=== PATIENT | female | born 2005 | race Caucasian/White ===

== ENCOUNTER 2024-07-18 13:59 | Emergency (ER) | payer OTHER, MEDICAID, SELFPAY ==
[2024-07-18 14:00] VITALS: BP 126/78; PULSE 123; RESP 20; TEMP 37.1; O2SAT 98; BMI 25.2
--- NOTE | 2024-07-18 14:28 | EDS_ITS ---
HPI History of Present Illness Chief Complaint: General Illness Detail of Chief Complaint: Flulike symptoms and left leg pain Informant: patient Onset/Context/Timing Onset: Yesterday Context: Sudden Onset Timing: Continuous Quality: Discomfort Location: Anterior left leg Current Severity: Mild Maximum Severity: Moderate Worsened by: Walking/weightbearing Relieved by: Nothing Associated Symptoms Associated Symptoms: Patient also has flulike symptoms. Narrative Narrative: Patient is a 18-year-old G2, P1 Ab0 female who presents because of anterior left leg pain. She has have flulike symptoms but not the reason she is here. She has had no fever, chills night sweats. She does endorse rhinorrhea, congestion sore throat cough. Cough is nonproductive. Denies dyspnea or [place] exertion. There is no history of VTE. Concern is for DVT. Prior similar symptoms: No Recent Illness/Hospitalization: No PFSH PFSH Medical History (Updated 07/18/24 @ 14:[address] Solo Garza MD) Preeclampsia Medical History no medical history Home Medications ?Medication ?Instructions ?Recorded ?Last Taken ?Type vit no.95-ferrous 1 tab PO DAILY 07/18/24 Unk nown History fumarate 28 mg-folic acid 800 mcg tablet () Allergy/AdvReac Type Severity Reaction Status Date / Time bee venom protein (honey Allergy Severe Anaphylaxis Verified 07/18/24 14:00 bee) (bee sting) Sulfa (Sulfonamide Allergy Severe Anaphylaxis Verified 07/18/24 14:00 Antibiotics) Family History no significant family his Surgical History no surgical history Social History (Updated 07/18/24 @ 14:[address] Solo Garza MD) household members: family and children Smoking Status: Never smoker ROS ROS ED Constitutional Constitutional ED: Denies chills, fever(s) or subjective Eyes Eyes: Denies blurry vision or change in vision ENT ENT ED: Reports rhinorrhea and sore throat; Denies ear pain Cardiovascular Cardiovascular: Denies chest pain, orthopnea, palpitations or paroxysmal nocturnal dyspnea Respiratory/Chest Respiratory/Chest: Reports cough and dyspnea; Denies dyspnea on exertion, orthopnea, paroxysmal nocturnal dyspnea or sputum Gastrointestinal Gastrointestinal: Denies abdominal pain, nausea or vomiting Musculoskeletal Musculoskeletal: Reports other Details: Anterior left leg pain. Integumentary Denies rash Neurologic Neurologic: Denies paresthesias or weakness Hematologic/Lymphatic Hematologic/Lymphatic: Reports systems reviewed and no addt'l complaints, except as documented EXAM Physical Exam Const Vital Signs: 07/18/24 14:00 07/18/24 14:23 Temperature 98.7 F Temperature Source Oral Pulse Rate 123 H Respiratory Rate 20 H Respiratory Effort Normal Respiratory Pattern Normal Blood Pressure 126/78 H Blood Pressure Mean 94 Pulse Ox 98 Oxygen Delivery Method Room Air Vital signs remarkable for tachycardia. Patient's blood pressure slightly elevated. Suspect this is due to her viral upper respiratory infection. Positive well nourished and well developed Constitutional Narrative: Patient has a hoarse voice. General Appearance ED: well developed and NAD; Negative for cyanotic, diaphoretic or pallor HEENT Reports moist mucous membranes Eyes PERRL and EOMs intact bilaterally General Eye ED: Negative for pale conjunctiva Resp normal respiratory effort Cardio regular rate and regular rhythm Extremity normal to inspection Extremity Narrative: There is no swelling, discoloration, asymmetry, leg vein distention, palpable cords tenderness on the distribution deep in the system. Patient does have pain anterior left leg. PT pulses 2+ and symmetric. There is no neurovascular compromise of the left lower extremity. Neuro oriented x3 and CN's II-XII intact bilaterally Sensorium / Orientation: alert Psych mental status grossly normal Skin no rashes or lesions noted, no wounds and skin turgor normal General Skin Exam: elasticity normal; Negative for jaundice or pallor MDM MDM MDM Narrative Medical decision making narrative: Patient with upper respiratory type symptoms. Since she is not hypoxic and has no abnormal respiratory findings imaging was not obtained. Patient was informed she does not have a DVT. Her Wells score for DVT is -2. They were informed raven t there are no blood vessels on the anterior portion of the leg that resulted in DVT. The vessels were located in the back part of the leg. Therefore venous duplex studies are not indicated. Discharge Plan Triage Chief Complaint: General Illness ED Provider: Solo Garza Dx/Rx/DC Orders Clinical Impression: Pain of left anterior lower extremity, Viral URI with cough, Second trimester , Sinus tachycardia Instructions: ED URI, Viral, No Abx (Adult), ED RICE Prescriptions: No Action PNV cmb#95-ferrous fumarate-FA [] 28 mg iron- 800 mcg tablet 1 tab PO DAILY Primary Care Provider: Care Physician,No Primary Referrals: Christine Beltrán MD [Med Staff - Active Staff] - 10-14 Days if not better Care Physician,No Primary [Primary Care Provider] - Print Language: Tamazight Disposition Disposition: Home, Self Care
== END 2024-07-18 14:56 | disposition home or self-care (01) ==
LOC: ED 14:55
PROVIDERS: Emergency Provider Emergency Medicine; Referring Provider Emergency Medicine; Visit Provider Emergency Medicine
DX: O26.892 Other specified pregnancy related conditions, second trimester (principal); M79.605 Pain in left leg; O99.512 Diseases of the respiratory system complicating pregnancy, second trimester; R00.0 Tachycardia, unspecified; J06.9 Acute upper respiratory infection, unspecified; Z3A.00 Weeks of gestation of pregnancy not specified
CPT/HCPCS: 99282

== ENCOUNTER 2024-10-03 19:12 | Emergency (ER) | payer OTHER, MEDICAID, SELFPAY ==
[2024-10-03 19:13] VITALS: BP 125/76; PULSE 103; RESP 18; TEMP 36.3; O2SAT 96; BMI 27.1
--- NOTE | 2024-10-03 19:58 | ED.VIS.CHEST ---
HPI History of Present Illness Chief Complaint: Chest Other Informant: patient Narrative Narrative: 19-year-old female who states she is having right-sided rib pain. It is in her right lower anterior lateral chest, she has no reason to have it it has been there for a couple days, started while she was sitting but just became worse. Nonpleuritic. Not necessarily worse when she moves around but certain movements make her more uncomfortable. She denies any dyspnea worse than she has had, she is 32 weeks and states she has had some mild dyspnea with exertion that she attributes to abdominal distention and being , states she has been like that before in before, and the main reason she is here is that she was preeclamptic before in a different , they saw a protein in her urine before her blood pressure went up and before she developed any symptoms and that is the only thing she wants done. She denies any cough or fevers except for some seasonal allergy type of rhinitis symptoms. She denies any abdominal pain, vomiting, diarrhea, blood in her stool, melena. No vaginal bleeding or discharge/leakage. No edema or pain in one of her legs or the other. No history of DVT or PE. [facility] Medical History Preeclampsia Home Medications ?Medication ?Instructions ?Recorded ?Last Taken ?Type vit no.95-ferrous 1 tab PO DAILY 07/18/24 Unknown History fumarate 28 mg-folic acid 800 mcg tablet () Allergy/AdvReac Type Severity Reaction Status Date / Time bee venom protein (honey Allergy Severe Anaphylaxis Verified 10/03/24 19:13 bee) (bee sting) Sulfa (Sulfonamide Allergy Severe Anaphylaxis Verified 10/03/24 19:13 Antibiotics) Social History household members: family and children Smoking Status: Never smoker ROS ROS ED Constitutional Constitutional ED: Denies chills or fever(s) Eyes Eyes: Denies change in vision or diplopia ENT ENT ED: Denies rhinorrhea or sore throat Cardiovascular Cardiovascular: Reports as per HPI and chest pain; Denies palpitations Respiratory/Chest Respiratory/Chest: Denies cough or dyspnea Gastrointestinal Gastrointestinal: Denies abdominal pain, diarrhea, nausea or vomiting Genitourinary Genitourinary ED: Denies dysuria or hematuria Musculoskeletal Musculoskeletal: Denies back pain or neck pain Integumentary Denies abscess or rash Neurologic Neurologic: Denies headache(s), paresthesias or weakness Psychiatric Psychiatric: Denies anxiety or suicidal thoughts EXAM Physical Exam Const Vital Signs: 10/03/24 19:13 10/03/24 19:46 Temperature 97.4 F L Temperature Source Temporal Pulse Rate 103 H Respiratory Rate 18 Respiratory Effort Normal Non-Labored Blood Pressure 125/76 H Blood Pressure Mean 92 Pulse Ox 96 Oxygen Delivery Method Room Air Positive well nourished and well developed Constitutional Narrative: Well-appearing no distress General Appearance ED: well developed and NAD HEENT Reports moist mucous membranes normocephalic and atraumatic Eyes PERRL and EOMs intact bilaterally Neck full ROM and supple Chest Wall inspection of chest normal and palpation of chest normal Chest Narrative: Not able to reproduce patient's pain, the affected area just beneath and lateral to her right breast is nontender there is no crepitance or flail or subcutaneous emphysema. No splinting with deep inspiration. Resp normal respiratory effort and clear to auscultation bilaterally Cardio regular rate, regular rhythm and no murmurs GI non-tender GI Narrative: Distended about the umbilicus consistent with her trimester . No upper quadrant tenderness. Auscultation: normoactive bowel sounds Palpation: soft Back/Spine no CVA tenderness General Back: other FROM Extremity normal to inspection Extremity Narrative: No calf tenderness bilaterally General Extremety ED: Negative for edema, pulses abnormal or tenderness General Extremity: Negative for edema or pulses abnormal Neuro oriented x3, CN's II-XII intact bilaterally and no sensory deficits noted Sensorium / Orientation: awake and alert Motor Exam: strength 5/5 throughout Psych mental status grossly normal Skin no rashes or lesions noted and no wounds MDM MDM MDM Narrative Medical decision making narrative: I discussed the possibilities of this patient's discomfort in her right lower chest. This does include a PE but I am at a lower suspicion that that is what is going on. I recommended chest x-ray to rule out an occult pneumonia or atelectasis that might explain this, she refuses the x-ray understanding all of this. She is concerned about preeclampsia and proteinuria, so we sent a urine it does show some protein but not a lot. Shows 500 leukocyte esterase with some pyuria but similar amount of epithelials, she does not have any urinary symptoms I do not think this is indicative of faction, but I offered blood work to screen her for preeclampsia and help syndrome, but she refused that as well. I discussed with her OB practice Dr. Berg was on-call, she recommended that we add a protein-creatinine urine ratio and send the patient to OB triage so she could be further evaluated. Patient is amenable to that. To be discharged from the ER. Lab Data Attestation: I reviewed the patient's lab results. Labs: Laboratory Results - last 24 hr 10/03/24 20:07 Urine Color Yellow Urine Clarity Sl. Cloudy Urine pH 6.0 Ur Specific Bowman 1.015 Urine Protein 15 H Urine Glucose (UA) Normal Urine Ketones Negative Urine Occult Blood Negative Urine Nitrite Negative Urine Bilirubin Negative Urine Urobilinogen Normal Ur Leukocyte Esterase 500 H Urine RBC 0 SEEN Urine WBC 10-25 SEEN Ur Squamous Epith Cells 10-25 SEEN Urine Bacteria 1+ Urine Mucus 0 SEEN Management Discussion w/another healthcare provider: Personnel Quality Assurance Auditor (OB Dr. Berg) Discharge Plan Triage Chief Complaint: Chest Other ED Provider: Triston Valerio Dx/Rx/DC Orders Clinical Impression: Right-sided chest pain, Third trimester , Proteinuria affecting in third trimester Instructions: ED Chest Pain, Uncertain Cause Prescriptions: No Action PNV cmb#95-ferrous fumarate-FA [] 28 mg iron- 800 mcg tablet 1 tab PO DAILY Primary Care Provider: Care Physician,Katherine Primary Referrals: OB triage [Other] (NOW) Print Language: Welsh Disposition Disposition: Home, Self Care
[2024-10-03 20:14] LABS: Mucous, Urine 0 SEEN /hpf (<or=2+); Red Blood Cells-Urine 0 SEEN /hpf (0-5)
[2024-10-03 20:22] LABS: Color, Urine Yellow (Yellow); Glucose, Dipstick Normal (Normal); Ketone-Dipstick Negative (Negative); Leukocyte Esterase-Dipstick 500 /ul (Negative); Nitrite-Dipstick Negative (Negative); Occult Blood-Urine Negative /ul (Negative); Protein-Dipstick 15 mg/dl (Negative); Specific Gravity, Urine 1.015 (1.002-1.030); Urine Bilirubin Dipstick Negative (Negative); Urine Clarity Sl. Cloudy (Clear); Urine Urobilinogen Normal (Normal)
[2024-10-03 20:48] LABS: Bacteria 1+ /hpf (None Seen); Squamous Epithelial Cells - UA 10-25 SEEN /hpf (5-10); White Blood Cells 10-25 SEEN /hpf (0-5)
[2024-10-03 21:45] VITALS: BP 115/71; PULSE 75; RESP 18; TEMP 36.7; O2SAT 100
[2024-10-03 21:57] LABS: Protein, Urine (Random) 14.6 mg/dL (0.0-12.0); Protein:Creat Ratio 170 mg/g CRE (0-200)
== END 2024-10-03 21:47 | disposition home or self-care (01) ==
PROVIDERS: Emergency Provider Emergency Medicine; Referring Provider Emergency Medicine; Visit Provider Emergency Medicine
DX: O26.893 Other specified pregnancy related conditions, third trimester (principal); R07.9 Chest pain, unspecified; O12.13 Gestational proteinuria, third trimester; O99.891 Other specified diseases and conditions complicating pregnancy; R82.81 Pyuria; Z3A.32 32 weeks gestation of pregnancy
CPT/HCPCS: 81001; 82570; 84156; 99282

== ENCOUNTER 2024-10-03 21:55 | Outpatient (CLI) | payer OTHER, MEDICAID, SELFPAY ==
[2024-10-03] VITALS (8 sets, daily range): BP systolic 81–120; BP diastolic 50–69; PULSE 64–91; RESP 16; TEMP 36.8; O2SAT 96–97
[2024-10-03 22:36] LABS: Absolute Lymphocyte Count 3.17 X10^3/uL (0.83-4.51); Absolute Neutrophil Count 11.3 X10^3/uL (2.0-7.7); Basophil# 0.05 X10^3/uL; Basophil% 0.3 % (0-1); Eosinophil# 0.18 X10^3/uL; Eosinophils% 1.2 % (0-5); Hematocrit 22.2 % (37-47); Hemoglobin 7.4 g/dL (12.0-15.0); Lymphocyte # 3.17 X10^3/ul (0.83-4.51); Lymphocyte % 20.3 % (19-41); Mean Corp Hgb Conc 33.3 g/dL (32-36); Mean Corpuscular Hgb 27.2 pg (27.0-32.0); Mean Corpuscular Volume 81.6 fL (81-99); Mean Platelet Vol. 9.6 fl (6.2-12.0); Monocyte# 0.85 X10^3/uL; Monocyte% 5.4 % (0-10); NRBC Flagged by Analyzer 0 % (0-5); Neutrophil # 11.25 X10^3/uL (2.7-7.7); Neutrophil % 72.1 % (47-70); Platelet Count 457 K/mm3 (150-450); RBC Distribution Width CV 12.4 % (11.6-14.6); RBC Distribution Width SD 37.1 fl (35.1-43.9); Red Blood Count 2.72 M/mm3 (4.2-5.4); White Blood Count 15.6 K/mm3 (4.4-11.0)
[2024-10-04 00:04] VITALS: BMI 26.9
[2024-10-04 01:03] LABS: ALB/GLOB Ratio 0.8 RATIO (0.9-2.4); AST(SGOT) 21 U/L (<=31); Alanine Aminotransfer ALT/SGPT 13 U/L (<=34); Albumin, Serum 3.1 g/dL (3.5-5.0); Alkaline Phosphatase 199 U/L (35-104); Anion Gap 12 (5-15); BUN 8 mg/dL (4-19); BUN/Creat Ratio 16.2 RATIO (10-20); Calcium,Total 8.6 mg/dL (7.6-11.0); Carbon Dioxide 19.1 mmol/L (21.0-32.0); Chloride 103 mmol/L (98-108); Creatinine, Serum 0.51 mg/dL (0.70-1.20); EST Glomerular Filtration Rate 136 (>60); Estimated Creatinine Clearance 174.98 ml/min (50-250); Globulin 3.7 g/dL (2.2-4.2); Glucose 109 mg/dL (70-99); Potassium 3.5 mmol/L (3.3-5.1); Protein, Total 6.8 g/dL (5.9-8.4); Sodium Level 134 mmol/L (133-145)
--- NOTE | 2024-10-04 09:37 | OB.TRI.NOTE ---
HPI - General General Date of Admission: 10/03/24 Date of Service: 10/03/24 Chief Complaint: right sided pain in HPI Narrative MARYANA BERRY, is a 19 F who presents 3 para 1 who presents complaining of some right upper quadrant pain has been going on for couple days that is worse when she sits and does her schoolwork at her computer. She denies any headache or visual changes. She denies any increased edema. She has had good movement. She denies any nausea vomiting, fevers or chills. She denies any diarrhea or constipation. Patient is concerned because last she had preeclampsia and she states it was only found by protein in her urine so she wanted to have that checked. She presented to the emergency room and I directed them to send her to labor and delivery for further evaluation. Maternal Data Information Final COTY: 12/02/24 Gestational age: 31 3/ [facility] Medical History Preeclampsia Home Medications ?Medication ?Instructions ?Recorded ?Last Taken ?Type vit no.95-ferrous 1 tab PO DAILY 07/18/24 Unknown History fumarate 28 mg-folic acid 800 mcg tablet () Allergy/AdvReac Type Severity Reaction Status Date / Time bee venom protein (honey Allergy Severe Anaphylaxis Verified 10/03/24 19:13 bee) (bee sting) Sulfa (Sulfonamide Allergy Severe Anaphylaxis Verified 10/03/24 19:13 Antibiotics) Social History household members: family and children Smoking Status: Never smoker Physical Exam Narrative General: Awake alert no acute distress Abdomen: Soft nontender nondistended, gravid, fundus appropriate for gestational age Extremities: Trace edema, 3+ DTRs no clonus NST FHR Rate Baby A Baseline: 120 Variability:: Moderate Accelerations:: 15 x 15 Decelerations:: Variable (Associated with vasovagal reaction and decrease in maternal blood pressure after blood draw) NST Reactive:: Yes FHR Category:: Category I (For 20 minutes before discharge home after the decelerations associated with maternal hypotension) Uterine Activity:: No regular contractions Assessment & Plan (1) Supervision of high risk in third trimester: PLAN: History of preeclampsia in her previous . Blood pressure is normal. Right upper quadrant pain is musculoskeletal, gets better with position changes. She does not have any tenderness on exam. Blood work is normal. No proteinuria. Discussed with her signs and symptoms of preeclampsia and to call or return to the office or labor and delivery as needed. Otherwise follow-up in the office as scheduled or as needed. Patient is comfortable with this plan. Labs were reviewed. Patient had decelerations associated with vasovagal reaction and hypotension after her blood draw. heart tones stabilized and were category 1 and reactive before discharge home.
== END 2024-10-03 23:21 | disposition home or self-care (01) ==
LOC: WPOUT 22:00 → WP 22:01
PROVIDERS: Referring Provider Obstetrics & Gynecology; Visit Provider Obstetrics & Gynecology
DX: O36.8330 Maternal care for abnormalities of the fetal heart rate or rhythm, third trimester, not applicable or unspecified (principal); O09.93 Supervision of high risk pregnancy, unspecified, third trimester; R10.11 Right upper quadrant pain; O99.891 Other specified diseases and conditions complicating pregnancy; R55 Syncope and collapse; O99.413 Diseases of the circulatory system complicating pregnancy, third trimester; I95.81 Postprocedural hypotension; Z3A.31 31 weeks gestation of pregnancy
CPT/HCPCS: 36415; 59025; 59050; 80053; 85025; 99221; G0378

== ENCOUNTER 2024-11-18 23:38 | Outpatient (CLI) | payer OTHER, MEDICAID, SELFPAY ==
[2024-11-18 23:59] VITALS: BMI 29.2
--- OUTSIDE RECORDS SUMMARY | 2024-11-18 23:59 | XMS RPT_ITS | CCD ---
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 trimester] 06-10-2024 Episodic Other complications of (9 sources) Disease of the respiratory system complicating , childbirth and/or the puerperium; Translations: [Diseases of the respiratory system complicating , third trimester] Onset: 10-10-2024 10-10-2024 Episodic Other complications of (1 source) Supervision of high risk , unspecified, third trimester; Translations: [Supervision of high risk in third trimester (HCC)] Onset: 11-04-2024 Episodic Other complications of (1 source) Diseases of the respiratory system complicating , third trimester; Translations: [Pneumonia affecting in third trimester (HCC)] Onset: 10-10-2024 Episodic Other complications of (1 source) Supervision of with insufficient care, unspecified trimester; Translations: [Late care (HCC)] Onset: 09-23-2024 Episodic Other connective tissue disease (1 source) Bilateral calf pain; Translations: [Pain in right lower leg] 07-18-2024 Episodic Other connective tissue disease (1 source) Pain in left leg; Translations: [Pain in left leg] Onset: 07-31-2024 Episodic Other female genital disorders (2 sources) Vaginal bleeding; Translations: [Abnormal uterine and vaginal bleeding, unspecified] Chronic Other lower respiratory disease (2 sources) Rib pain; Translations: [Pleurodynia] 11-12-2024 Episodic Other lower respiratory disease (2 sources) Pleurodynia; Translations: [Pleurodynia] Onset: 11-12-2024 Episodic Other screening for suspected conditions (not mental disorders or infectious disease) (7 sources) Intact membranes; Translations: [Encounter for suspected problem with amniotic cavity and membrane ruled out] Onset: 04-18-2023 Resolved: 06-07-2023 06-07-2023 Episodic Pneumonia (except that caused by tuberculosis or sexually transmitted disease) (4 sources) Left lower zone pneumonia; Translations: [Pneumonia, unspecified organism] Onset: 10-06-2024 10-06-2024 Episodic Residual codes; unclassified (2 sources) 33 weeks gestation of ; Translations: [33 weeks gestation of ] Onset: 05-30-2023 Episodic Residual codes; unclassified (2 sources) 29 weeks gestation of ; Translations: [29 weeks gestation of ] Onset: 05-02-2023 Episodic Residual codes; unclassified (2 sources) 27 weeks gestation of ; Translations: [27 weeks gestation of ] Onset: 04-19-2023 Episodic Residual codes; unclassified (1 source) Gestation period, 15 weeks; Translations: [15 weeks gestation of ] 06-07-2024 Episodic Residual codes; unclassified (1 source) Gestation period, 20 weeks; Translations: [20 weeks gestation of ] 07-16-2024 Episodic Residual codes; unclassified (1 source) Gestation period, 22 weeks; Translations: [22 weeks gestation of ] 07-30-2024 Episodic Residual codes; unclassified (1 source) Gestation period, 24 weeks; Translations: [24 weeks gestation of ] 08-12-2024 Episodic Residual codes; unclassified (1 source) Gestation period, 28 weeks; Translations: [28 weeks gestation of ] 09-09-2024 Episodic Residual codes; unclassified (1 source) Gestation period, 30 weeks; Translations: [30 weeks gestation of ] 09-23-2024 Episodic Residual codes; unclassified (1 source) Gestation period, 32 weeks; Translations: [32 weeks gestation of ] 10-10-2024 Episodic Residual codes; unclassified (1 source) Gestation period, 34 weeks; Translations: [34 weeks gestation of ] 10-21-2024 Episodic Residual codes; unclassified (1 source) Gestation period, 36 weeks; Translations: [36 weeks gestation of ] 11-04-2024 Episodic Residual codes; unclassified (4 sources) Gestation period, 37 weeks; Translations: [37 weeks gestation of ] Onset: 11-12-2024 11-12-2024 Episodic Residual codes; unclassified (2 sources) 37 weeks gestation of ; Translations: [37 weeks gestation of ([facility])] Onset: 11-12-2024 Episodic Residual codes; unclassified (1 source) 36 weeks gestation of ; Translations: [36 weeks gestation of ([facility])] Onset: 11-04-2024 Episodic Residual codes; unclassified (1 source) 34 weeks gestation of ; Translations: [34 weeks gestation of ([facility])] Onset: 10-21-2024 Episodic Residual codes; unclassified (1 source) Personal history of other complications of , childbirth and the puerperium; Translations: [History of pre-eclampsia] Onset: 10-21-2024 Episodic Residual codes; unclassified (1 source) 32 weeks gestation of ; Translations: [32 weeks gestation of (HCC)] Onset: 10-10-2024 Episodic Residual codes; unclassified (1 source) 30 weeks gestation of ; Translations: [30 weeks gestation of (HCC)] Onset: 09-23-2024 Episodic Residual codes; unclassified (1 source) 24 weeks gestation of ; Translations: [24 weeks gestation of (HCC)] Onset: 09-09-2024 Episodic Unclassified (2 sources) Routine Visit; Translations: [Routine Visit] Onset: 06-07-2023 Unclassified (10 sources) [facility] - [facility] Onset: 09-12-2024 09-12-2024 Past or Other Problems Problem Classification Problem Date Documented Date Episodic/Chronic Bacterial infection; unspecified site (7 sources) Chlamydial infection; Translations: [Chlamydial infection, unspecified] Onset: 12-13-2022 Resolved: 04-18-2023 12-13-2022 Episodic Contraceptive and procreative management (4 sources) Encounter for initial prescription of contraceptive pills; Translations: [Encounter for initial prescription of contraceptive pills] Onset: 06-13-2023 Episodic Hypertension complicating ; childbirth and the puerperium (10 sources) Pre-eclampsia; Translations: [Unspecified pre-eclampsia, third trimester] Onset: 06-13-2023 Resolved: 10-25-2023 06-19-2023 Episodic Other circulatory disease (8 sources) Elevated blood-pressure reading without diagnosis of hypertension; Translations: [Elevated blood-pressure reading, without diagnosis of hypertension] Onset: 06-07-2023 Resolved: 10-25-2023 06-07-2023 Episodic Other circulatory disease (2 sources) Elevated blood-pressure reading, without diagnosis of hypertension; Translations: [Elevated blood-pressure reading, without diagnosis of hypertension] Onset: 06-07-2023 Episodic Other complications of (8 sources) Proteinuria; Translations: [Gestational proteinuria, third trimester] Onset: 06-07-2023 Resolved: 10-25-2023 06-07-2023 Episodic Other complications of (2 sources) Gestational proteinuria, third trimester; Translations: [Gestational proteinuria, third trimester] Onset: 06-07-2023 Episodic Other complications of (20 sources) Late entry into care; Translations: [Supervision of with insufficient care, second trimester] Onset: 06-10-2024 06-10-2024 Episodic Other complications of (20 sources) History of pre-eclampsia; Translations: [Supervision of with other poor reproductive or obstetric history, unspecified trimester] Onset: 06-05-2023 06-10-2024 Episodic Other complications of (20 sources) High risk ; Translations: [Supervision of high risk , unspecified, unspecified trimester] Onset: 06-10-2024 06-10-2024 Episodic Other connective tissue disease (9 sources) Acquired short Achilles tendon; Translations: [Contracture of tendon (sheath)] Onset: 04-18-2023 Resolved: 04-18-2023 04-18-2023 Episodic Other and delivery including normal (15 sources) Intrauterine ; Translations: [Encounter for supervision of normal , unspecified, unspecified trimester] Onset: 12-19-2022 Resolved: 10-25-2023 Episodic Other upper respiratory infections (2 sources) Acute frontal sinusitis; Translations: [Acute frontal sinusitis, unspecified] Onset: 12-29-2020 Resolved: 12-08-2022 12-08-2022 Episodic Residual codes; unclassified (4 sources) Vegetarian; Translations: [Other specified health status] Onset: 10-16-2018 10-16-2018 Episodic Residual codes; unclassified (1 source) 15 weeks gestation of ; Translations: [15 weeks gestation of ] Onset: 06-10-2024 Episodic Results Test Name Value Interpretation Reference Range Facility URINE OB DIP B/Oon Glucose Ql (U) Negative Neg mg/dL [facility] Interpretation and review of laboratory results Normal [facility] Protein.monoclonal (U) [Mass/Vol] Negative Neg mg/dL [facility] CBC W Auto Differential pane l (Bld)on 11-12-2024 Basophils (Bld) [#/Vol] 0.05 10*3/uL [facility] Basophils/100 WBC (Bld) 0.4 % 0.0 - 2.0 % [facility] Eosinophils (Bld) [#/Vol] 0.14 10*3/uL [facility] Eosinophils/100 WBC (Bld) 1.1 % 0.0 - 6.0 % [facility] Erythrocyte distribution width (RBC) [Ratio] 13.5 % 11.5 - 14.5 % [facility] Hematocrit (Bld) [Volume fraction] 26.3 % Low 36.0 - 46.0 % [facility] Hemoglobin (Bld) [Mass/Vol] 8.2 g/dL Low 12.0 - 16.0 g/dL [facility] Immature granulocytes (Bld) [#/Vol] 0.11 10*3/uL [facility] Immature granulocytes/100 WBC (Bld) 0.9 % 0.0 - 0.9 % [facility] Comment on above: Immature Granulocyte Count (IG) includes promyelocytes, myelocytes and metamyelocytes but does not include bands. Percent differential counts (%) should be interpreted in the context of the absolute cell counts (cells/UL). Interpretation and review of laboratory results Abnormal [facility] Lymphocytes (Bld) [#/Vol] 2.75 10*3/uL [facility] Lymphocytes/100 WBC (Bld) 22.4 % 13.0 - 44.0 % [facility] MCH (RBC) [Entitic mass] 24.7 pg Low 26.0 - 34.0 pg [facility] MCHC (RBC) [Mass/Vol] 31.2 g/dL Low 32.0 - 36.0 g/dL [facility] MCV (RBC) [Entitic vol] 79 fL Low 80 - 100 fL [facility] Monocytes (Bld) [#/Vol] 0.77 10*3/uL [facility] Monocytes/100 WBC (Bld) 6.3 % 2.0 - 10.0 % [facility] Neutrophils (Bld) [#/Vol] 8.46 10*3/uL High [facility] Comment on above: Percent differential counts (%) should be interpreted in the context of the absolute cell counts (cells/uL). Neutrophils/100 WBC (Bld) 68.9 % 40.0 - 80.0 % [facility] Nucleated RBC/100 WBC (Bld) [Ratio] 0 % [facility] Platelets (Bld) [#/Vol] 234 10*3/uL [facility] RBC (Bld) [#/Vol] 3.32 10*6/uL Low [facility] WBC (Bld) [#/Vol] 12.3 10*3/uL High [facility] Basophils (Bld) [#/Vol] 0.05 x10*3/uL Normal 0.00-0.10 [facility] Comment on above: Performed By: #### 5 7021-8 #### MELLO TOWNSEND ([id number]) [facility] ([facility]) [address] [place] [address] 37154 Basophils/100 WBC (Bld) 0.4 % Normal 0.0-2.0 [facility] Comment on above: Performed By: #### 5 7021-8 #### MELLO TOWNSEND ([id number]) [facility] ([facility]) [address] [place] [address] 31241 Eosinophils (Bld) [#/Vol] 0.14 x10*3/uL Normal 0.00-0.70 [facility] Comment on above: Performed By: #### 5 7021-8 #### MELLO TOWNSEND ([id number]) [facility] ([facility]) [address] [place] [address] 06095 Eosinophils/100 WBC (Bld) 1.1 % Normal 0.0-6.0 [facility] Comment on above: Performed By: #### 5 7021-8 #### MELLO TOWNSEND ([id number]) [facility] ([facility]) [address] [place] [address] 82622 Erythrocyte distribution width (RBC) [Ratio] 13.5 % Normal 11.5-14.5 [facility] Comment on above: Performed By: #### 5 7021-8 #### MELLO TOWNSEND ([id number]) [facility] ([facility]) [address] [place] [address] 76930 Hematocrit (Bld) [Volume fraction] 26.3 % Low 36.0-46.0 [facility] Comment on above: Performed By: #### 5 7021-8 #### MELLO TOWNSEND ([id number]) [facility] ([facility]) [address] [place] [address] 97205 Hemoglobin (Bld) [Mass/Vol] 8.2 g/dL Low 12.0-16.0 [facility] Comment on above: Performed By: #### 5 7021-8 #### MELLO TOWNSEND ([id number]) [facility] ([facility]) [address] [place] [address] 79836 Immature granulocytes (Bld) [#/Vol] 0.11 x10*3/uL Normal 0.00-0.70 [facility] Comment on above: Performed By: #### 5 7021-8 #### MELLO TOWNSEND ([id number]) [facility] ([facility]) [address] [place] [address] 42619 Immature granulocytes/100 WBC (Bld) 0.9 % Normal 0.0-0.9 [facility] Comment on above: Result Comment: Sheila ture Granulocyte Count (IG) includes promyelocytes, myelocytes and metamyelocytes but does not include bands. Percent differential counts (%) should be interpreted in the context of the absolute cell counts (cells/UL). Performed By: #### 5 7021-8 #### MELLO TOWNSEND ([id number]) [facility] ([facility]) [address] [place] [address] 15035 Lymphocytes (Bld) [#/Vol] 2.75 x10*3/uL Normal 1.20-4.80 [facility] Comment on above: Performed By: #### 5 7021-8 #### MELLO TOWNSEND ([id number]) [facility] ([facility]) [address] [place] [address] 56245 Lymphocytes/100 WBC (Bld) 22.4 % Normal 13.0-44.0 [facility] Comment on above: Performed By: #### 5 7021-8 #### MELLO TOWNSEND ([id number]) [facility] ([facility]) [address] [place] [address] 10739 MCH (RBC) [Entitic mass] 24.7 pg Low 26.0-34.0 [facility] Comment on above: Performed By: #### 5 7021-8 #### MELLO TOWNSEND ([id number]) [facility] ([facility]) [address] [place] [address] 86697 MCHC (RBC) [Mass/Vol] 31.2 g/dL Low 32.0-36.0 [facility] Comment on above: Performed By: #### 5 7021-8 #### MELLO TOWNSEND ([id number]) [facility] ([facility]) [address] [place] [address] MCV (RBC) [Entitic vol] 79 fL Low 80-100 [facility] Comment on above: Performed By: #### 5 7021-8 #### MELLO TOWNSEND ([id number]) [facility] ([facility]) [address] [place], [place] [id number] Monocytes (Bld) [#/Vol] 0.77 x10*3/uL Normal 0.10-1.00 [facility] Comment on above: Performed By: #### 5 7021-8 #### MELLO TOWNSEND ([id number]) [facility] ([facility]) [address] [place] [address] 25364 Monocytes/100 WBC (Bld) 6.3 % Normal 2.0-10.0 [facility] Comment on above: Performed By: #### 5 7021-8 #### MELLO TOWNSEND ([id number]) [facility] ([facility]) [address] [place] [address] 18490 Neutrophils (Bld) [#/Vol] 8.46 x10*3/uL High 1.20-7.70 [facility] Comment on above: Result Comment: Perc ent differential counts (%) should be interpreted in the context of the absolute cell counts (cells/uL). Performed By: #### 5 7021-8 #### MELLO TOWNSEND ([id number]) [facility] ([facility]) [address] [place] [address] 11402 Neutrophils/100 WBC (Bld) 68.9 % Normal 40.0-80.0 [facility] Comment on above: Performed By: #### 5 7021-8 #### MELLO TOWNSEND ([id number]) [facility] ([facility]) [address] [place] [address] 72276 Nucleated RBC/100 WBC (Bld) [Ratio] 0.0 /100 WBCs Normal 0.0-0.0 [facility] Comment on above: Performed By: #### 5 7021-8 #### MELLO TOWNSEND ([id number]) [facility] ([facility]) [address] [place] [address] 51823 Platelets (Bld) [#/Vol] 234 x10*3/uL Normal 150-450 [facility] Comment on above: Performed By: #### 5 7021-8 #### MELLO TOWNSEND ([id number]) [facility] ([facility]) [address] [place] [address] 30106 RBC (Bld) [#/Vol] 3.32 x10*6/uL Low 4.00-5.[address] [facility] Comment on above: Performed By: #### 5 7021-8 #### MELLO TOWNSEND ([id number]) [facility] ([facility]) [address] [place] [address] 34436 WBC (Bld) [#/Vol] 12.3 x10*3/uL High 4.4-11.[address] [facility] Comment on above: Performed By: #### 5 7021-8 #### MELLO TOWNSEND ([id number]) [facility] ([facility]) [address] [place] [address] ANGIO CHEST FOR PULMONARY EMBOLISMon 11-12-2024 CT ANGIO CHEST FOR PULMONARY EMBOLISM Interpreted By: Matt Osborn, STUDY: CT ANGIO CHEST FOR PULMONARY EMBOLISM; 11/12/2024 5:59 pm INDICATION: Signs/Symptoms:lighthead ed, right rib pain. COMPARISON: 10/06/2024 ACCESSION NUMBER(S): [id number] ORDERING CLINICIAN: MITRA HASTINGS TECHNIQUE: Helical data acquisition of the chest was obtained with IV contrast material. MIP reconstructions. 67 mL of Omnipaque 350. Images were reformatted in axial, coronal, and sagittal planes. FINDINGS: Lungs and Pleura: No pulmonary consolidation. No pleural effusion. No pneumothorax. Mediastinum and axilla: No evidence of pulmonary embolism. No adenopathy by CT size criteria. No cardiomegaly or pericardial effusion. No thoracic aortic aneurysm. Visualized Upper Abdomen: Diffuse hepatic hypodensity suggestive of hepatic steatosis. Cholelithiasis. MSK/Chest Wall: No aggressive bony lesion identified. IMPRESSION: No evidence of pulmonary embolism. Cholelithiasis. Signed by: Matt Osborn 11/12/2024 6:23 PM Dictation workstation: [id number] [facility] CT Chest W contrast IV and C T angiogram Pulmonary arteries for pulmonary embolus W contrast Johanna 11-12-2024 No evidence of pulmo nary embolism. Cholelithiasis. Signed by: Matt Osborn 11/12/2024 6:23 PM Dictation workstation: [id number] MMODAL Interpreted By: Matt Osborn, STUDY: CT ANGIO CHEST FOR PULMONARY EMBOLISM; 11/12/2024 5:59 pm INDICATION: Signs/Symptoms:lighthead ed, right rib pain. COMPARISON: 10/06/2024 ACCESSION NUMBER(S): [id number] ORDERING CLINICIAN: MITRA HASTINGS TECHNIQUE: Helical data acquisition of the chest was obtained with IV contrast material. MIP reconstructions. 67 mL of Omnipaque 350. Images were reformatted in axial, coronal, and sagittal planes. FINDINGS: Lungs and Pleura: No pulmonary consolidation. No pleural effusion. No pneumothorax. Mediastinum and axilla: No evidence of pulmonary embolism. No adenopathy by CT size criteria. No cardiomegaly or pericardial effusion. No thoracic aortic aneurysm. Visualized Upper Abdomen: Diffuse hepatic hypodensity suggestive of hepatic steatosis. Cholelithiasis. MSK/Chest Wall: No aggressive bony lesion identified. MMODAL Matt Osborn MD - 11/12/2024 Interpreted By: Matt Osborn, STUDY: CT ANGIO CHEST FOR PULMONARY EMBOLISM; 11/12/2024 5:59 pm INDICATION: Signs/Symptoms:lighthead ed, right rib pain. COMPARISON: 10/06/2024 ACCESSION NUMBER(S): [id number] ORDERING CLINICIAN: MITRA HASTINGS TECHNIQUE: Helical data acquisition of the chest was obtained with IV contrast material. MIP reconstructions. 67 mL of Omnipaque 350. Images were reformatted in axial, coronal, and sagittal planes. FINDINGS: Lungs and Pleura: No pulmonary consolidation. No pleural effusion. No pneumothorax. Mediastinum and axilla: No evidence of pulmonary embolism. No adenopathy by CT size criteria. No cardiomegaly or pericardial effusion. No thoracic aortic aneurysm. Visualized Upper Abdomen: Diffuse hepatic hypodensity suggestive of hepatic steatosis. Cholelithiasis. MSK/Chest Wall: No aggressive bony lesion identified. IMPRESSION: No evidence of pulmonary embolism. Cholelithiasis. Signed by: Matt Osborn 11/12/2024 6:23 PM Dictation workstation: [id number] [facility] Work Phone: Radiology Study observation (narrative) [facility] Work Phone: CT Chest W contrast IV and C T angiogram Pulmonary arteries for pulmonary embolus W contrast IVOrdered By: Matt Osborn on 11-12-2024 [facility] Work Phone: Coagulation surface inducedo n 11-12-2024 aPTT Coag (PPP) [Time] 22 s Low 26-36 [facility] Comment on above: Order Comment: The V TE Exclusion D-Dimer assay is reported in ng/mL Fibrinogen Equivalent Units (FEU). Per zumba instructor's instructions for use, a value of less than 500 ng/mL (FEU) may help to exclude DVT or PE in outpatients when the assay is used with a clinical pretest probability assessment.([facility] must utilize and document eCalc 'Wells Score Deep Vein Thrombosis Risk' for DVT exclusion only. Emergency Department should utilize Guidelines for Emergency Department Use of the VTE Exclusion D-Dimer and Clinical Pretest probability assessment model for DVT or PE exclusion.) Performed By: #### 4 8065-7 #### SARKAR KRISTIAN ([id number]) [facility] ([facility]) [address] [place] [address] Coagulation tissue factor in ducedon 11-12-2024 PT Coag (PPP) [Time] 10.5 s Normal 9.8-12.[address] [facility] Comment on above: Performed By: #### 4 8065-7 #### SARKAR KRISTIAN ([id number]) [facility] ([facility]) [facility] [place] [id number] Comprehensive metabolic 2000 panelon 11-12-2024 Albumin BCP dye [Mass/Vol] 3.2 g/dL Low 3.4 - 5.0 g/dL [facility] ALP [Catalytic activity/Vol] 280 U/L High 33 - 110 U/L [facility] ALT With P-5'-P [Catalytic activity/Vol] 12 U/L 7 - 45 U/L [facility] Comment on above: Patients treated wit h Sulfasalazine may generate falsely decreased results for ALT. Anion gap [Moles/Vol] 12 mmol/L 10 - 20 mmol/L [facility] AST With P-5'-P [Catalytic activity/Vol] 22 U/L 9 - 39 U/L [facility] Comment on above: MILD HEMOLYSIS DETEC SYLVIE. The result may be falsely elevated due to hemolysis or other interferents. Clinical correlation is recommended. Repeat testing may be considered. Bilirubin [Mass/Vol] 0.4 mg/dL 0.0 - 1 .2 mg/dL [facility] Calcium [Mass/Vol] 8.9 mg/dL 8.6 - 10. 3 mg/dL [facility] Chloride [Moles/Vol] 103 mmol/L 98 - 10 7 mmol/L [facility] CO2 [Moles/Vol] 23 mmol/L 21 - 32 mmol/L [facility] Creatinine [Mass/Vol] 0.55 mg/dL 0.50 - 1.05 mg/dL [facility] eGFR - PINF [facility] Comment on above: Calculations of andrey mated GFR are performed using the 2020 CKD-EPI Study Refit equation without the race variable for the IDMS-Traceable creatinine methods. https://jasn.asnjournals.org/content/early//ASN.4981289 988 Glucose [Mass/Vol] 86 mg/dL 74 - 99 mg/dL [facility] Interpretation and review of laboratory results Abnormal [facility] Potassium [Moles/Vol] 4 mmol/L 3.5 - 5.3 mmol/L [facility] Comment on above: MILD HEMOLYSIS DETEC SYLVIE. The result may be falsely elevated due to hemolysis or other interferents. Clinical correlation is recommended. Repeat testing may be considered. Protein [Mass/Vol] 7 g/dL 6.4 - 8.2 g/dL [facility] Sodium [Moles/Vol] 134 mmol/L Low 136 - 145 mmol/L [facility] Urea nitrogen [Mass/Vol] 8 mg/dL 6 - 23 mg/dL [facility] Albumin BCP dye [Mass/Vol] 3.2 g/dL Low 3.4-5.0 [facility] Comment on above: Performed By: #### 4 8065-7 #### MELLO TOWNSEND ([id number]) [facility] ([facility]) [address] [place] [address] ALP [Catalytic activity/Vol] 280 U/L High 33-110 [facility] Comment on above: Performed By: #### 4 8065-7 #### MELLO TOWNSEND ([id number]) [facility] ([facility]) [address] [place] [id number] ALT With P-5'-P [Catalytic activity/Vol] 12 U/L Normal 7-45 [facility] Comment on above: Result Comment: Zaira ents treated with Sulfasalazine may generate falsely decreased results for ALT. Performed By: #### 4 8065-7 #### MELLO TOWNSEND ([id number]) [facility] ([facility]) [address] [place] [address] 07777 Anion gap [Moles/Vol] 12 mmol/L Normal 10-20 [facility] Comment on above: Performed By: #### 4 8065-7 #### MELLO TOWNSEND ([id number]) [facility] ([facility]) [address] [place] [address] 08083 AST With P-5'-P [Catalytic activity/Vol] 22 U/L Normal 9-39 [facility] Comment on above: Result Comment: MILD HEMOLYSIS DETECTED. The result may be falsely elevated due to hemolysis or other interferents. Clinical correlation is recommended. Repeat testing may be considered. Performed By: #### 4 8065-7 #### MELLO TOWNSEND ([id number]) [facility] ([facility]) [address] [place] [address] Bilirubin [Mass/Vol] 0.4 mg/dL Normal 0.0-1.[address] [facility] Comment on above: Performed By: #### 4 8065-7 #### MELLO TOWNSEND ([id number]) [facility] ([facility]) [address] [place] [address] Calcium [Mass/Vol] 8.9 mg/dL Normal 8.6-10.3 [facility] Comment on above: Performed By: #### 4 8065-7 #### MELLO TOWNSEND ([id number]) [facility] ([facility]) [address] [place] [address] Chloride [Moles/Vol] 103 mmol/L Normal 98-[address] [facility] Comment on above: Performed By: #### 4 8065-7 #### MELLO TOWNSEND ([id number]) [facility] ([facility]) [address] [place] [address] CO2 [Moles/Vol] 23 mmol/L Normal 21-32 [facility] Comment on above: Performed By: #### 4 8065-7 #### MELLO TOWNSEND ([id number]) [facility] ([facility]) [address] [place] [address] Creatinine [Mass/Vol] 0.55 mg/dL Normal 0.50-1.05 [facility] Comment on above: Performed By: #### 4 8065-7 #### MELLO TOWNSEND ([id number]) [facility] ([facility]) [address] [place] [address] GFR/1.73 sq M.predicted MDRD (S/P/Bld) [Vol rate/Area] mL/min/{1.73_m2} Normal >60 [facility] Comment on above: Result Comment: Calc ulations of estimated GFR are performed using the 2020 CKD-EPI Study Refit equation without the race variable for the IDMS-Traceable creatinine methods. https://jasn.asnjournals.org/content//ASN.9592300 988 Performed By: #### 4 8065-7 #### MELLO TOWNSEND ([id number]) [facility] ([facility]) [address] [place] [address]74 Glucose [Mass/Vol] 86 mg/dL Normal 74-99 [facility] Comment on above: Performed By: #### 4 8065-7 #### MELLO TOWNSEND ([id number]) [facility] ([facility]) [address] [place] [address]45 Potassium [Moles/Vol] 4.0 mmol/L Normal 3.5-5.3 [facility] Comment on above: Result Comment: MILD HEMOLYSIS DETECTED. The result may be falsely elevated due to hemolysis or other interferents. Clinical correlation is recommended. Repeat testing may be considered. Performed By: #### 4 8065-7 #### MELLO TOWNSEND ([id number]) [facility] ([facility]) [address] [place] [address] 34997 Protein [Mass/Vol] 7.0 g/dL Normal 6.4-8.2 [facility] Comment on above: Performed By: #### 4 8065-7 #### MELLO TOWNSEND ([id number]) [facility] ([facility]) [address] [place] [address] 93054 Sodium [Moles/Vol] 134 mmol/L Low 136-145 [facility] Comment on above: Performed By: #### 4 8065-7 #### MELLO TOWNSEND ([id number]) [facility] ([facility]) [address] [place] [address] 14619 Urea nitrogen [Mass/Vol] 8 mg/dL Normal 6-23 [facility] Comment on above: Performed By: #### 4 8065-7 #### MELLO TOWNSEND ([id number]) [facility] ([facility]) [address] [place] [address] D-Dimer, VTE Exclusionon Fibrin D-dimer FEU (PPP) [Mass/Vol] 1887 High NINF [facility] ECG 12-LEADon 11-12-2024 ECG 12-LEAD Ventricular Rate 94 Atrial Rate 94 P-R Interval 122 QRS Duration 86 Q-T Interval 328 QTC Calculation(Bazett) 410 P [place] 71 R [place] 91 T [place] 36 QRS Count 15 Q Onset 218 P Onset 157 P Offset 203 T Offset 382 QTC Fredericia 381 Diagnosis Normal sinus rhythm Rightward axis Borderline ECG When compared with ECG of 06-OCT-2024 16:46, No significant change was found See ED provider note for full interpretation and clinical correlation Confirmed by Mitra Rice ([id number]) on 11/13/2024 7:04:18 PM Normal [facility] Fibrin D-dimer FEUon 025 Fibrin D-dimer FEU (PPP) [Mass/Vol] 1887 ng/mL FEU High <=500 [facility] Comment on above: Order Comment: The V TE Exclusion D-Dimer assay is reported in ng/mL Fibrinogen Equivalent Units (FEU). Per zumba instructor's instructions for use, a value of less than 500 ng/mL (FEU) may help to exclude DVT or PE in outpatients when the assay is used with a clinical pretest probability assessment.(AEMR must utilize and document eCalc 'Wells Score Deep Vein Thrombosis Risk' for DVT exclusion only. Emergency Department should utilize Guidelines for Emergency Department Use of the VTE Exclusion D-Dimer and Clinical Pretest probability assessment model for DVT or PE exclusion.) Performed By: #### 4 8065-7 #### MELLO TOWNSEND ([id number]) [facility] ([facility]) [facility] [place] [address] Fibrin D-dimer FEU (PPP) [Ma ss/Vol]on 11-12-2024 The VTE Exclusion D-Dimer assay is reported in ng/mL Fibrinogen Equivalent Units (FEU). Per zumba instructor's instructions for use, a value of less than 500 ng/mL (FEU) may help to exclude DVT or PE in outpatients when the assay is used with a clinical pretest probability assessment.(AEMR must utilize and document eCalc 'Wells Score Deep Vein Thrombosis Risk' for DVT exclusion only. Emergency Department should utilize Guidelines for Emergency Department Use of the VTE Exclusion D-Dimer and Clinical Pretest probability assessment model for DVT or PE exclusion.) [facility] Lipaseon 11-12-2024 Lipase [Catalytic activity/Vol] 18 U/L 9 - 82 U/L [facility] Lipase [Catalytic activity/V ol]on 11-12-2024 Interpretation and review of laboratory results Normal [facility] Venipuncture immedia tely after or during the administration of Metamizole may lead to falsely low results. Testing should be performed immediately prior to Metamizole dosing. [facility] Magnesiumon 11-12-2024 Magnesium [Mass/Vol] 1.87 mg/dL 1.60 - 2.40 mg/dL [facility] Magnesium [Mass/Vol] 1.87 mg/dL Normal 1.60-2.[address] [facility] Comment on above: Performed By: #### 4 8065-7 #### MELLO TOWNSEND ([id number]) [facility] ([facility]) [address] [place] [address] Magnesium [Mass/Vol]on 11-12 Interpretation and review of laboratory results Normal [facility] No Panel Informationon 11-12 [facility] Interpretation and review of laboratory results Abnormal [facility] PT Coag (PPP) [Time]on 11-12 INR Coag (PPP) [Relative time] 0.9 {INR} 0.9 - 1.1 [facility] Interpretation and review of laboratory results Normal [facility] INR Coag (PPP) [Relative time] 0.9 Normal 0.9-1.1 [facility] Comment on above: Performed By: #### 4 8065-7 #### MELLO TOWNSEND ([id number]) [facility] ([facility]) [address] [place], [place] [id number] Protime-INRon 11-12-2024 PT Coag (PPP) [Time] 10.5 s [facility] Triacylglycerol lipaseon Lipase [Catalytic activity/Vol] 18 U/L Normal 9-82 [facility] Comment on above: Order Comment: The V TE Exclusion D-Dimer assay is reported in ng/mL Fibrinogen Equivalent Units (FEU). Per zumba instructor's instructions for use, a value of less than 500 ng/mL (FEU) may help to exclude DVT or PE in outpatients when the assay is used with a clinical pretest probability assessment.(AEMR must utilize and document eCalc 'Wells Score Deep Vein Thrombosis Risk' for DVT exclusion only. Emergency Department should utilize Guidelines for Emergency Department Use of the VTE Exclusion D-Dimer and Clinical Pretest probability assessment model for DVT or PE exclusion.) Performed By: #### 4 8065-7 #### SARKAR KRISTIAN ([id number]) [facility] ([facility]) [address] [place] [address] Tropinin I.cardiac panel Hig h sensitivity methodon 11-12-2024 Interpretation and review of laboratory results Normal [facility] Less than 99th percentile of normal range cutoff- Female and children under 18 years old <14 ng/L; Male <21 ng/L: Negative Repeat testing should be performed if clinically indicated. Female and children under 18 years old 14-50 ng/L; Male 21-50 ng/L: Consistent with possible cardiac damage and possible increased clinical risk. Serial measurements may help to assess extent of myocardial damage. >50 ng/L: Consistent with cardiac damage, increased clinical risk and myocardial infarction. Serial measurements may help assess extent of myocardial damage. NOTE: Children less than 1 year old may have higher baseline troponin levels and results should be interpreted in conjunction with the overall clinical context. NOTE: Troponin I testing is performed using a different testing methodology at [facility] than at other [facility]. Direct result comparisons should only be made within the same method. [facility] Interpretation and review of laboratory results Normal [facility] Less than 99th percentile of normal range cutoff- Female and children under 18 years old <14 ng/L; Male <21 ng/L: Negative Repeat testing should be performed if clinically indicated. Female and children under 18 years old 14-50 ng/L; Male 21-50 ng/L: Consistent with possible cardiac damage and possible increased clinical risk. Serial measurements may help to assess extent of myocardial damage. >50 ng/L: Consistent with cardiac damage, increased clinical risk and myocardial infarction. Serial measurements may help assess extent of myocardial damage. NOTE: Children less than 1 year old may have higher baseline troponin levels and results should be interpreted in conjunction with the overall clinical context. NOTE: Troponin I testing is performed using a different testing methodology at [facility] than at other [facility]. Direct result comparisons should only be made within the same method. [facility] Troponin I, High Sensitivity , Initialon 11-12-2024 Tropinin I.cardiac panel High sensitivity method 9 ng/L 0 - 13 ng/L [facility] Troponin I.cardiac panelon 0 11-12-2024 Tropinin I.cardiac panel High sensitivity method 5 ng/L Normal 0-13 [facility] Comment on above: Order Comment: The V TE Exclusion D-Dimer assay is reported in ng/mL Fibrinogen Equivalent Units (FEU). Per zumba instructor's instructions for use, a value of less than 500 ng/mL (FEU) may help to exclude DVT or PE in outpatients when the assay is used with a clinical pretest probability assessment.(AE must utilize and document eCalc 'Wells Score Deep Vein Thrombosis Risk' for DVT exclusion only. Emergency Department should utilize Guidelines for Emergency Department Use of the VTE Exclusion D-Dimer and Clinical Pretest probability assessment model for DVT or PE exclusion.) Performed By: #### 4 8065-7 #### SARKAR KRISTIAN ([id number]) [facility] ([facility]) [address] [place] [address] Tropinin I.cardiac panel High sensitivity method 9 ng/L Normal 0-13 [facility] Comment on above: Order Comment: The V TE Exclusion D-Dimer assay is reported in ng/mL Fibrinogen Equivalent Units (FEU). Per zumba instructor's instructions for use, a value of less than 500 ng/mL (FEU) may help to exclude DVT or PE in outpatients when the assay is used with a clinical pretest probability assessment.(AEMR must utilize and document eCalc 'Wells Score Deep Vein Thrombosis Risk' for DVT exclusion only. Emergency Department should utilize Guidelines for Emergency Department Use of the VTE Exclusion D-Dimer and Clinical Pretest probability assessment model for DVT or PE exclusion.) Performed By: #### 4 8065-7 #### SARKAR KRISTIAN ([id number]) [facility] ([facility]) [address] [place] [address] Troponin, High Sensitivity, 1 Houron 11-12-2024 Tropinin I.cardiac panel High sensitivity method 5 ng/L 0 - 13 ng/L [facility] aPTTon 11-12-2024 aPTT Coag (PPP) [Time] 22 s Low [facility] aPTT Coag (PPP) [Time]on The APTT is no longe r used for monitoring Unfractionated Heparin Therapy. For monitoring Heparin Therapy, use the Heparin Assay. [facility] CNPNon 11-08-2024 CNPN Telephone (OBGYWM) -------- MARYANA WILLIAM ([id number]) 1 F Date Time Provider Department 11/08/24 ANAYELI MURRY During your visit today, we recorded the following information about you: Janet Coe RN 11/08/2024 2:17 PM Signed 36w4d Patient called in c/o right rib pain still. She first noticed it over 2 weeks, but she had pneumonia at the time so she thought it was related to that. Pneumonia has clear. She has no coughing, shortness of breath or fever, but this right rib pain has gotten a little worse today. When she pushes on the area it helps relieve the pain some. Movement makes it worse typically. Does not get worse with breathing/deep breath. Last OB visit 11/04 with SW - she did not bring it up at that visit though. She thought it could be related to position, but baby has been more on left side she thinks lately. Please advise. SOULEYMANE Walter Courtney, APRN.CNM 11/08/2024 2:40 PM Signed Agree that this could be positioning or musculoskeletal. Try heating pad to area- taking Tylenol 1000 mg by mouth for pain and try YOGA/ STRETCHING. Anayeli Murry APRN.Janet Gabriel RN 11/08/2024 2:48 PM Signed Attempted to call patient. Unable to leave message because mailbox is full. [facility] message sent. SOULEYMANE Walter Trisha, RN 11/08/2024 2:51 PM Signed Patient called back in and was notified. States she has tried heating pad and tylenol. Tylenol doesn't help as much, but the heating pad does. She will try with stretching over the weekend follow up next week at her scheduled appointment. She will call if needed for sooner visit. Janet Coe RN Allergies As of Date: 11/08/2024 Noted Allergy Reaction VENOM-HONEY BEE 10/16/2018 10 - Anaphylaxis 7 - Swelling SULFA (SULFONAMIDE ANTIBIOTICS) 10/16/2018 4 - Hives 7 - Swelling Date Reviewed: 11/04/2024 Reviewed by: Vanna Birmingham MA - Fully Assessed Reason for Visit: OB pain [Other] Prescriptions as of 11/08/2024 - amoxicillin-clavulanate potassium (AUGMENTIN) 875-125 mg per tablet Take 1 tablet by mouth every 12 hours. - ferrous sulfate (SLOW FE) 140 mg (45 mg iron) TbER Take 1 tablet by mouth once daily. - aspirin, enteric coated (ECOTRIN LOW STRENGTH) 81 mg EC tablet Take 1 tablet by mouth once daily. - PNV no.[id number]-dha-epa-fi sh ( GUMMIES) 400 mcg-35 mg- 25 mg-5 mg chew Take 1 Piece by mouth once daily. Meds Comments as of 02/06/2009: No current meds, reviewed 02/06/2009. Pily Zavala LPN Problem List As Of Date 11/08/2024 Noted Resolved ECZEMA [L25.8] Supervision of high risk , antepartum *06/10/2024 Late care affecting in secon*06/10/2024 Hx of pre-eclampsia in prior , current*06/2023 Anemia complicating , third trimester *09/09/2024 Pneumonia affecting in third critical access hospitaleste*10/10/2024 Encounter Status:Closed by ANAYELI MURRY on 11/08/24 Normal [facility] ROUTINE, GROUP B ST REPTOCOCCUS BY PCRon 11-04-2024 ROUTINE, GROUP B STREPTOCOCCUS BY PCR Not detected Normal [facility] Comment on above: Performed By: #### T SPN #### [facility] [id number] [address] [place] [address] URINE OB DIP B/Oon Glucose Ql (U) Negative Neg mg/dL [facility] Interpretation and review of laboratory results Normal [facility] Protein.monoclonal (U) [Mass/Vol] Negative Neg mg/dL [facility] CNPNon 10-25-2024 CNPN Telephone (OBGYWM) -------- MARYANA WILLIAM ([id number]) 1 F Date Time Provider Department 10/25/24 ANAYELI MURRY OBJENNIFERWM During your visit today, we recorded the following information about you: Janet Coe, RN 10/25/2024 10:28 AM Signed 34w4d Calling because she had episode this morning at work where she got a little dizzy and started seeing black spots like she was going to pass out while at work. Symptoms improved once she sat down. She did not fully pass out. She did not eat breakfast this morning. Advised to make sure she eats breakfast daily and small frequent snacks throughout the day, along with pushing water intake. She said this is the second time this has happened to her recently at work and the first time was shortly after she did eat. She does stand a lot at work, but is able to move around and not just in one spot. Encouraged to not lock knees while standing in one spot and sit for breaks periodically too. Advised to call back if she completely loses consciousness at anytime or if it becomes a daily occurrence as well. Please advise. SOULEYMANE Walter Courtney, APRN.CNM 10/25/2024 4:26 PM Signed Please encourage patient to wear compression stockings and elevate legs if possible at work on breaks. She needs to incorporate electrolytes in diet.- Drink some Gatorade or Powerade. FOX Ruiz Jennifer, RN 10/25/2024 4:33 PM Signed Left message for patient to call office. Sanjuana Caceres RN Allergies As of Date: 10/25/2024 Noted Allergy Reaction VENOM-HONEY BEE 10/16/2018 10 - Anaphylaxis 7 - Swelling SULFA (SULFONAMIDE ANTIBIOTICS) 10/16/2018 4 - Hives 7 - Swelling Date Reviewed: 10/21/2024 Reviewed by: Vanna Birmingham MA - Fully Assessed Reason for Visit: Question (OB Question) [1552] Prescriptions as of 10/25/2024 - amoxicillin-clavulanate potassium (AUGMENTIN) 875-125 mg per tablet Take 1 tablet by mouth every 12 hours. - ferrous sulfate (SLOW FE) 140 mg (45 mg iron) TbER Take 1 tablet by mouth once daily. - aspirin, enteric coated (ECOTRIN LOW STRENGTH) 81 mg EC tablet Take 1 tablet by mouth once daily. - PNV no.[id number]-dha-epa-fi sh ( GUMMIES) 400 mcg-35 mg- 25 mg-5 mg chew Take 1 Piece by mouth once daily. Meds Comments as of 02/06/2009: No current meds, reviewed 02/06/2009. Pily Zavala LPN Problem List As Of Date 10/25/2024 Noted Resolved ECZEMA [L25.8] Supervision of high risk , antepartum *06/10/2024 Late care affecting in secon*06/10/2024 Hx of pre-eclampsia in prior , current*06/2023 Anemia complicating , third trimester *09/09/2024 Pneumonia affecting in third trimeste*10/10/2024 Encounter Status:Closed by ANAYELI MURRY on 10/25/24 [facility] Tele[facility] (OBGYWM) -------- MARYANA WILLIAM ([id number]) 1 F Date Time Provider Department 10/24/24 SANJUANA JEONG OBGYWM During your visit today, we recorded the following information about you: Michelle Lemus RN 10/24/2024 12:34 PM Signed 34w3d Feel like she is going to throw up AND states you know the feeling like you are about to start your period?. This RN asked Pt to clarify that it is the nausea she is calling about rather than bleeding as Pt is 34w3d . Pt denies vaginal bleeding/LOF/Abdominal pain/Headache/blurred vision (hx of pre-e with prior ) . Pt Has not taken anything for nausea. + Active movement. Pt states staying hydrated. Eating without difficulty. Advised Pt to call office /go to [facility] if she begins to have any vaginal bleeding, LOF, decreased movement, or severe abdominal pain. Advised Pt to try taking Vitamin b6 w/ unisom and modesta chews/tea AND if unable to keep food/liquids down for >24 hours to go to ER. Pt advised to call office with any questions/concerns. Pt voiced understanding. SOULEYMANE Valentin Jennifer, MD 10/24/2024 4:20 PM Signed Agree. Routine labor precautions. Allergies As of Date: 10/24/2024 Noted Allergy Reaction VENOM-HONEY BEE 10/16/2018 10 - Anaphylaxis 7 - Swelling SULFA (SULFONAMIDE ANTIBIOTICS) 10/16/2018 4 - Hives 7 - Swelling Date Reviewed: 10/21/2024 Reviewed by: Vanna Birmingham MA - Fully Assessed Reason for Visit: Nausea [Other] Prescriptions as of 10/24/2024 - amoxicillin-clavulanate potassium (AUGMENTIN) 875-125 mg per tablet Take 1 tablet by mouth every 12 hours. - ferrous sulfate (SLOW FE) 140 mg (45 mg iron) TbER Take 1 tablet by mouth once daily. - aspirin, enteric coated (ECOTRIN LOW STRENGTH) 81 mg EC tablet Take 1 tablet by mouth once daily. - PNV no.[id number]-dha-epa-fi sh ( GUMMIES) 400 mcg-35 mg- 25 mg-5 mg chew Take 1 Piece by mouth once daily. Meds Comments as of 02/06/2009: No current meds, reviewed 02/06/2009. Pily Zavala [facility] Problem List As Of Date 10/24/2024 Noted Resolved ECZEMA [L25.8] Supervision of high risk , antepartum *06/10/2024 Late care affecting in secon*06/10/2024 Hx of pre-eclampsia in prior , current*06/2023 Anemia complicating , third trimester *09/09/2024 Pneumonia affecting in third trimeste*10/10/2024 Encounter Status:Closed by ZINA ORNELAS on 10/24/24 Normal [facility] URINE OB DIP B/Oon Glucose Ql (U) Negative Neg mg/dL [facility] Interpretation and review of laboratory results Normal [facility] Protein.monoclonal (U) [Mass/Vol] Negative Neg mg/dL [facility] CNPNon 10-07-2024 CNPN Telephone (OBGYWM) -------- MARYANA WILLIAM ([id number]) 1 F Date Time Provider Department 10/07/24 JENNIFER DE LA TORRE OBJENNIFERWDeborah During your visit today, we recorded the following information about you: Sanjuana Caceres, SOULEYMANE 10/07/2024 9:39 AM Signed Please check in on patient this morning and get an update from ER visit thanks Sanjuana Aguilar RN 10/07/2024 9:39 AM Signed 32w0d Updated Care Everywhere. Patient was seen at [facility]. See notes available in Epic now. Dx: Pneumonia of left lower lobe due to infectious organism. Patient has an upcoming OB visit on 10/10. Do we need to move up her appointment or do you have further instructions before we call patient? SOULEYMANE Tee Tara, RN 10/07/2024 10:22 AM Signed Pt called in to change appt on 10/10/24 as it did not fit her schedule. Stating she went to [facility] 3 days ago, then to [facility] ER 10/06. States dx Pneumonia and given IV antibiotics. States she is feeling improvement with the shortness of breath and denies at this time. 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 Advised to continue to push fluids, continue to monitor movement, and take antibiotics as advised. Rescheduled OB appt from 10/10/24 to 10/14/24 d/t patient availability. However, last OB appt was 09/23/24. Does Pt need seen sooner than 10/14/24? Please advise. SOULEYMANE Valentin Sara, MD 10/07/2024 11:59 AM Signed Thank you, would recommend keeping appointment this week and please make an appointment note to see this phone encounter thanks Allergies As of Date: 10/07/2024 Noted Allergy Reaction VENOM-HONEY BEE 10/16/2018 10 - Anaphylaxis 7 - Swelling SULFA (SULFONAMIDE ANTIBIOTICS) 10/16/2018 4 - Hives 7 - Swelling Date Reviewed: 09/23/2024 Reviewed by: Arina Sanchez MA - Fully Assessed Reason for Visit: ED Follow-up [821] Prescriptions as of 10/08/2024 - ferrous sulfate (SLOW FE) 140 mg (45 mg iron) TbER Take 1 tablet by mouth once daily. - aspirin, enteric coated (ECOTRIN LOW STRENGTH) 81 mg EC tablet Take 1 tablet by mouth once daily. - PNV no.[id number]-fi sh ( GUMMIES) 400 mcg-35 mg- 25 mg-5 mg chew Take 1 Piece by mouth once daily. Meds Comments as of 02/06/2009: No current meds, reviewed 02/06/2009. Pily Zavala LPN Problem List As Of Date 10/07/2024 Noted Resolved ECZEMA [L25.8] Supervision of high risk , antepartum *06/10/2024 Late care affecting in secon*06/10/2024 Hx of pre-eclampsia in prior , current*06/2023 Anemia complicating , third trimester *09/09/2024 Encounter Status:Closed by SANJUANA CACERES on 10/08/24 Normal [facility] CBC W Auto Differential pane l (Bld)on 10-06-2024 Basophils (Bld) [#/Vol] 0.04 10*3/uL [facility] Basophils/100 WBC (Bld) 0.3 % 0.0 - 2.0 % [facility] Eosinophils (Bld) [#/Vol] 0.11 10*3/uL [facility] Eosinophils/100 WBC (Bld) 0.9 % 0.0 - 6.0 % [facility] Erythrocyte distribution width (RBC) [Ratio] 12.3 % 11.5 - 14.5 % [facility] Hematocrit (Bld) [Volume fraction] 29.7 % Low 36.0 - 46.0 % [facility] Hemoglobin (Bld) [Mass/Vol] 9.8 g/dL Low 12.0 - 16.0 g/dL [facility] Immature granulocytes (Bld) [#/Vol] 0.1 10*3/uL [facility] Immature granulocytes/100 WBC (Bld) 0.8 % 0.0 - 0.9 % [facility] Comment on above: Immature Granulocyte Count (IG) includes promyelocytes, myelocytes and metamyelocytes but does not include bands. Percent differential counts (%) should be interpreted in the context of the absolute cell counts (cells/UL). Interpretation and review of laboratory results Abnormal [facility] Lymphocytes (Bld) [#/Vol] 2.36 10*3/uL [facility] Lymphocytes/100 WBC (Bld) 18.3 % 13.0 - 44.0 % [facility] MCH (RBC) [Entitic mass] 27.1 pg 26.0 - 34.0 pg [facility] MCHC (RBC) [Mass/Vol] 33 g/dL 32.0 - 36.0 g/dL [facility] MCV (RBC) [Entitic vol] 82 fL 80 - 100 fL [facility] Monocytes (Bld) [#/Vol] 0.83 10*3/uL [facility] Monocytes/100 WBC (Bld) 6.4 % 2.0 - 10.0 % [facility] Neutrophils (Bld) [#/Vol] 9.46 10*3/uL High [facility] Comment on above: Percent differential counts (%) should be interpreted in the context of the absolute cell counts (cells/uL). Neutrophils/100 WBC (Bld) 73.3 % 40.0 - 80.0 % [facility] Nucleated RBC/100 WBC (Bld) [Ratio] 0 % [facility] Platelets (Bld) [#/Vol] 417 10*3/uL [facility] RBC (Bld) [#/Vol] 3.61 10*6/uL Low [facility] WBC (Bld) [#/Vol] 12.9 10*3/uL High [facility] Basophils (Bld) [#/Vol] 0.04 x10*3/uL Normal 0.00-0.10 [facility] Comment on above: Performed By: #### 5 7021-8 #### MELLO TOWNSEND ([id number]) [facility] ([facility]) [address] [place] [address] 47276 Basophils/100 WBC (Bld) 0.3 % Normal 0.0-2.0 [facility] Comment on above: Performed By: #### 5 7021-8 #### MELLO TOWNSEND ([id number]) [facility] ([facility]) [address] [place] [address] 45423 Eosinophils (Bld) [#/Vol] 0.11 x10*3/uL Normal 0.00-0.70 [facility] Comment on above: Performed By: #### 5 7021-8 #### MELLO TOWNSEND ([id number]) [facility] ([facility]) [address] [place] [address] 99030 Eosinophils/100 WBC (Bld) 0.9 % Normal 0.0-6.0 [facility] Comment on above: Performed By: #### 5 7021-8 #### MELLO TOWNSEND ([id number]) [facility] ([facility]) [address] [place] [address] 62462 Erythrocyte distribution width (RBC) [Ratio] 12.3 % Normal 11.5-14.5 [facility] Comment on above: Performed By: #### 5 7021-8 #### MELLO TOWNSEND ([id number]) [facility] ([facility]) [address] [place] [address] 17540 Hematocrit (Bld) [Volume fraction] 29.7 % Low 36.0-46.0 [facility] Comment on above: Performed By: #### 5 7021-8 #### MELLO TOWNSEND ([id number]) [facility] ([facility]) [address] [place], [place] [id number] Hemoglobin (Bld) [Mass/Vol] 9.8 g/dL Low 12.0-16.0 [facility] Comment on above: Performed By: #### 5 7021-8 #### MELLO TOWNSEND ([id number]) [facility] ([facility]) [address] [place] [address] 01411 Immature granulocytes (Bld) [#/Vol] 0.10 x10*3/uL Normal 0.00-0.70 [facility] Comment on above: Performed By: #### 5 7021-8 #### MELLO TOWNSEND ([id number]) [facility] ([facility]) [address] [place] [address] 88450 Immature granulocytes/100 WBC (Bld) 0.8 % Normal 0.0-0.9 [facility] Comment on above: Result Comment: Sheila ture Granulocyte Count (IG) includes promyelocytes, myelocytes and metamyelocytes but does not include bands. Percent differential counts (%) should be interpreted in the context of the absolute cell counts (cells/UL). Performed By: #### 5 7021-8 #### MELLO TOWNSEND ([id number]) [facility] ([facility]) [address] [place] [address] 28125 Lymphocytes (Bld) [#/Vol] 2.36 x10*3/uL Normal 1.20-4.80 [facility] Comment on above: Performed By: #### 5 7021-8 #### MELLO TOWNSEND ([id number]) [facility] ([facility]) [address] [place] [address] 65859 Lymphocytes/100 WBC (Bld) 18.3 % Normal 13.0-44.0 [facility] Comment on above: Performed By: #### 5 7021-8 #### MELLO TOWNSEND ([id number]) [facility] ([facility]) [address] [place] [address] 85770 MCH (RBC) [Entitic mass] 27.1 pg Normal 26.0-34.0 [facility] Comment on above: Performed By: #### 5 7021-8 #### MELLO TOWNSEND ([id number]) [facility] ([facility]) [address] [place] [address] 51052 MCHC (RBC) [Mass/Vol] 33.0 g/dL Normal 32.0-36.0 [facility] Comment on above: Performed By: #### 5 7021-8 #### MELLO TOWNSEND ([id number]) [facility] ([facility]) [address] [place] [address] 12758 MCV (RBC) [Entitic vol] 82 fL Normal 80-100 [facility] Comment on above: Performed By: #### 5 7021-8 #### MELLO TOWNSEND ([id number]) [facility] ([facility]) [address] [place] [address] 31641 Monocytes (Bld) [#/Vol] 0.83 x10*3/uL Normal 0.10-1.00 [facility] Comment on above: Performed By: #### 5 7021-8 #### MELLO TOWNSEND ([id number]) [facility] ([facility]) [address] [place] [address] 33389 Monocytes/100 WBC (Bld) 6.4 % Normal 2.0-10.0 [facility] Comment on above: Performed By: #### 5 7021-8 #### MELLO TOWNSEND ([id number]) [facility] ([facility]) [address] [place] [address] 86127 Neutrophils (Bld) [#/Vol] 9.46 x10*3/uL High 1.20-7.70 [facility] Comment on above: Result Comment: Perc ent differential counts (%) should be interpreted in the context of the absolute cell counts (cells/uL). Performed By: #### 5 7021-8 #### MELLO TOWNSEND ([id number]) [facility] ([facility]) [address] [place] [address] 62292 Neutrophils/100 WBC (Bld) 73.3 % Normal 40.0-80.0 [facility] Comment on above: Performed By: #### 5 7021-8 #### MELLO TOWNSEND ([id number]) [facility] ([facility]) [address] [place] [address] 67359 Nucleated RBC/100 WBC (Bld) [Ratio] 0.0 /100 WBCs Normal 0.0-0.0 [facility] Comment on above: Performed By: #### 5 7021-8 #### MELLO TOWNSEND ([id number]) [facility] ([facility]) [address] [place] [address] 57879 Platelets (Bld) [#/Vol] 417 x10*3/uL Normal 150-450 [facility] Comment on above: Performed By: #### 5 7021-8 #### MELLO TOWNSEND ([id number]) [facility] ([facility]) [address] [place] [address] 74832 RBC (Bld) [#/Vol] 3.61 x10*6/uL Low 4.00-5.[address] [facility] Comment on above: Performed By: #### 5 7021-8 #### MELLO TOWNSEND ([id number]) [facility] ([facility]) [address] [place] [address] 94083 WBC (Bld) [#/Vol] 12.9 x10*3/uL High 4.4-11.[address] [facility] Comment on above: Performed By: #### 5 7021-8 #### SARKAR KRISTIAN ([id number]) [facility] ([facility]) [address] [place] [address] CT ANGIO CHEST FOR PULMONARY EMBOLISMon 10-06-2024 CT ANGIO CHEST FOR PULMONARY EMBOLISM STUDY: CT Angiogram of the Chest; 10/06/2024 at 6:25 p.m. INDICATION: Shortness of breath. Tachypnea. Palpitations. Elevated D-Dimer. COMPARISON: None Available. ACCESSION NUMBER(S): [id number] ORDERING CLINICIAN: JOSE DAMON TECHNIQUE: CTA of the chest was performed with intravenous contrast. Images are reviewed and processed at a workstation according to the CT angiogram protocol with 3-D and/or MIP post processing imaging generated. Omnipaque 350 68 mL was administered intravenously. Automated mA/kV exposure control was utilized and patient examination was performed in strict accordance with principles of ALARA. FINDINGS: Pulmonary arteries are adequately opacified without acute or chronic filling defects. The thoracic aorta is normal in course and caliber without dissection or aneurysm. The heart is normal in size without pericardial effusion. Thoracic lymph nodes are not enlarged. There is no pleural effusion, pleural thickening, or pneumothorax. The airways are patent. Focal consolidation at the base of the left lower lobe concerning for infectious or inflammatory pneumonitis. Upper abdomen demonstrates no acute pathology. There are no acute fractures. No suspicious bony lesions. IMPRESSION: 1. Consolidation at the base of the left lower lobe concerning for infectious or inflammatory pneumonitis. 2. No evidence for pulmonary embolus. Signed by Kyle Perez MD [facility] CT Chest W contrast IV and C T angiogram Pulmonary arteries for pulmonary embolus W contrast Johanna 10-06-2024 1. Consolidation at the base of the left lower lobe concerning for infectious or inflammatory pneumonitis. 2. No evidence for pulmonary embolus. Signed by Kyle Perez MD TELERADIOLOGY STUDY: CT Angiogram of the Chest; 10/06/2024 at 6:25 p.m. INDICATION: Shortness of breath. Tachypnea. Palpitations. Elevated D-Dimer. COMPARISON: None Available. ACCESSION NUMBER(S): [id number] ORDERING CLINICIAN: JOSE DAMON TECHNIQUE: CTA of the chest was performed with intravenous contrast. Images are reviewed and processed at a workstation according to the CT angiogram protocol with 3-D and/or MIP post processing imaging generated. Omnipaque 350 68 mL was administered intravenously. Automated mA/kV exposure control was utilized and patient examination was performed in strict accordance with principles of ALARA. FINDINGS: Pulmonary arteries are adequately opacified without acute or chronic filling defects. The thoracic aorta is normal in course and caliber without dissection or aneurysm. The heart is normal in size without pericardial effusion. Thoracic lymph nodes are not enlarged. There is no pleural effusion, pleural thickening, or pneumothorax. The airways are patent. Focal consolidation at the base of the left lower lobe concerning for infectious or inflammatory pneumonitis. Upper abdomen demonstrates no acute pathology. There are no acute fractures. No suspicious bony lesions. TELERADIOLOGY Kyle Perez MD - 10/06/2024 STUDY: CT Angiogram of the Chest; 10/06/2024 at 6:25 p.m. INDICATION: Shortness of breath. Tachypnea. Palpitations. Elevated D-Dimer. COMPARISON: None Available. ACCESSION NUMBER(S): [id number] ORDERING CLINICIAN: JOSE DAMON TECHNIQUE: CTA of the chest was performed with intravenous contrast. Images are reviewed and processed at a workstation according to the CT angiogram protocol with 3-D and/or MIP post processing imaging generated. Omnipaque 350 68 mL was administered intravenously. Automated mA/kV exposure control was utilized and patient examination was performed in strict accordance with principles of ALARA. FINDINGS: Pulmonary arteries are adequately opacified without acute or chronic filling defects. The thoracic aorta is normal in course and caliber without dissection or aneurysm. The heart is normal in size without pericardial effusion. Thoracic lymph nodes are not enlarged. There is no pleural effusion, pleural thickening, or pneumothorax. The airways are patent. Focal consolidation at the base of the left lower lobe concerning for infectious or inflammatory pneumonitis. Upper abdomen demonstrates no acute pathology. There are no acute fractures. No suspicious bony lesions. IMPRESSION: 1. Consolidation at the base of the left lower lobe concerning for infectious or inflammatory pneumonitis. 2. No evidence for pulmonary embolus. Signed by Kyle Perez MD [facility] Work Phone: Radiology Study observation (narrative) [facility] Work Phone: CT Chest W contrast IV and C T angiogram Pulmonary arteries for pulmonary embolus W contrast IVOrdered By: Kyle Perez on 10-06-2024 [facility] Work Phone: Comprehensive metabolic 2000 panelon 10-06-2024 Albumin BCP dye [Mass/Vol] 3.1 g/dL Low 3.4 - 5.0 g/dL [facility] ALP [Catalytic activity/Vol] 200 U/L High 33 - 110 U/L [facility] ALT With P-5'-P [Catalytic activity/Vol] 12 U/L 7 - 45 U/L [facility] Comment on above: Patients treated wit h Sulfasalazine may generate falsely decreased results for ALT. Anion gap [Moles/Vol] 10 mmol/L 10 - 20 mmol/L [facility] AST With P-5'-P [Catalytic activity/Vol] 17 U/L 9 - 39 U/L [facility] Bilirubin [Mass/Vol] 0.3 mg/dL 0.0 - 1 .2 mg/dL [facility] Calcium [Mass/Vol] 8.1 mg/dL Low 8.6 - 10. 3 mg/dL [facility] Chloride [Moles/Vol] 106 mmol/L 98 - 10 7 mmol/L [facility] CO2 [Moles/Vol] 22 mmol/L 21 - 32 mmol/L [facility] Creatinine [Mass/Vol] 0.44 mg/dL Low 0.50 - 1.05 mg/dL [facility] eGFR - PINF [facility] Comment on above: Calculations of andrey mated GFR are performed using the 2020 CKD-EPI Study Refit equation without the race variable for the IDMS-Traceable creatinine methods. https://jasn.asnjournals.org/content/early/ASN.7043173 988 Glucose [Mass/Vol] 89 mg/dL 74 - 99 mg/dL [facility] Interpretation and review of laboratory results Abnormal [facility] Potassium [Moles/Vol] 3.6 mmol/L 3.5 - 5.3 mmol/L [facility] Protein [Mass/Vol] 6.8 g/dL 6.4 - 8.2 g/dL [facility] Sodium [Moles/Vol] 134 mmol/L Low 136 - 145 mmol/L [facility] Urea nitrogen [Mass/Vol] 8 mg/dL 6 - 23 mg/dL [facility] Albumin BCP dye [Mass/Vol] 3.1 g/dL Low 3.4-5.0 [facility] Comment on above: Performed By: #### 2 4323-8 #### MELLO TOWNSEND ([id number]) [facility] ([facility]) [address] [place] [address] ALP [Catalytic activity/Vol] 200 U/L High 33-110 [facility] Comment on above: Performed By: #### 2 4323-8 #### MELLO TOWNSEND ([id number]) [facility] ([facility]) [address] [place] [address] 75082 ALT With P-5'-P [Catalytic activity/Vol] 12 U/L Normal 7-45 [facility] Comment on above: Result Comment: Zaira ents treated with Sulfasalazine may generate falsely decreased results for ALT. Performed By: #### 2 4323-8 #### MELLO TOWNSEND ([id number]) [facility] ([facility]) [address] [place] [address] 57109 Anion gap [Moles/Vol] 10 mmol/L Normal 10-20 [facility] Comment on above: Performed By: #### 2 4323-8 #### MELLO TOWNSEND ([id number]) [facility] ([facility]) [address] [place] [address] 23080 AST With P-5'-P [Catalytic activity/Vol] 17 U/L Normal 9-39 [facility] Comment on above: Performed By: #### 2 4323-8 #### MELLO TOWNSEND ([id number]) [facility] ([facility]) [address] [place] [address] 55772 Bilirubin [Mass/Vol] 0.3 mg/dL Normal 0.0-1.[address] [facility] Comment on above: Performed By: #### 2 4323-8 #### MELLO TOWNSEND ([id number]) [facility] ([facility]) [address] [place] [address] Calcium [Mass/Vol] 8.1 mg/dL Low 8.6-10.3 [facility] Comment on above: Performed By: #### 2 4323-8 #### MELLO TOWNSEND ([id number]) [facility] ([facility]) [address] [place] [address] Chloride [Moles/Vol] 106 mmol/L Normal 98-[address] [facility] Comment on above: Performed By: #### 2 4323-8 #### MELLO TOWNSEND ([id number]) [facility] ([facility]) [address] [place] [address] 44886 CO2 [Moles/Vol] 22 mmol/L Normal 21-32 [facility] Comment on above: Performed By: #### 2 4323-8 #### MELLO TOWNSEND ([id number]) [facility] ([facility]) [address] [place] [address] Creatinine [Mass/Vol] 0.44 mg/dL Low 0.50-1.05 [facility] Comment on above: Performed By: #### 2 4323-8 #### MELLO TOWNSEND ([id number]) [facility] ([facility]) [address] [place] [address] 24874 GFR/1.73 sq M.predicted MDRD (S/P/Bld) [Vol rate/Area] mL/min/{1.73_m2} Normal >60 [facility] Comment on above: Result Comment: Calc ulations of estimated GFR are performed using the 2020 CKD-EPI Study Refit equation without the race variable for the IDMS-Traceable creatinine methods. https://jasn.asnjournals.org/content//ASN.8659774 988 Performed By: #### 2 4323-8 #### MELLO TOWNSEND ([id number]) [facility] ([facility]) [address] [place] [address] Glucose [Mass/Vol] 89 mg/dL Normal 74-99 [facility] Comment on above: Performed By: #### 2 4323-8 #### MELLO TOWNSEND ([id number]) [facility] ([facility]) [address] [place] [address] 42700 Potassium [Moles/Vol] 3.6 mmol/L Normal 3.5-5.3 [facility] Comment on above: Performed By: #### 2 4323-8 #### MELLO TOWNSEND ([id number]) [facility] ([facility]) [address] [place] [address] 42690 Protein [Mass/Vol] 6.8 g/dL Normal 6.4-8.2 [facility] Comment on above: Performed By: #### 2 4323-8 #### MELLO TOWNSEND ([id number]) [facility] ([facility]) [address] [place] [address] 42093 Sodium [Moles/Vol] 134 mmol/L Low 136-145 [facility] Comment on above: Performed By: #### 2 4323-8 #### MELLO TOWNSEND ([id number]) [facility] ([facility]) [address] [place] [address] 44515 Urea nitrogen [Mass/Vol] 8 mg/dL Normal 6-23 [facility] Comment on above: Performed By: #### 2 4323-8 #### MELLO TOWNSEND ([id number]) [facility] ([facility]) [address] [place] [address] 58170 D-Dimer, VTE Exclusionon Fibrin D-dimer FEU (PPP) [Mass/Vol] 1367 [facility] ECG 12-LEADon 10-06-2024 ECG 12-LEAD Ventricular Rate 102 Atrial Rate 102 P-R Interval 118 QRS Duration 86 Q-T Interval 334 QTC Calculation(Bazett) 435 P [place] 73 R [place] 97 T [place] 19 QRS Count 17 Q Onset 215 P Onset 156 P Offset 201 T Offset 382 QTC Fredericia 398 Diagnosis Sinus tachycardia Rightward axis Borderline ECG When compared with ECG of 06-OCT-2024 11:29, (unconfirmed) QRS duration has increased Non-specific change in ST segment in Anterior leads Nonspecific T wave abnormality now evident in Anterior leads QT has lengthened See ED provider note for full interpretation and clinical correlation Confirmed by Mitra Rice ([id number]) on 10/11/2024 9:23:17 PM Normal [facility] FLUAV and FLUBV RNA ISAK+prob e Nom (Unsp spec)on 10-06-2024 FLUAV RNA ISAK+probe Ql (Resp) Not detected Not Detected [facility] FLUBV RNA ISAK+probe Ql (Resp) Not detected Not Detected [facility] This assay is an in vitro diagnostic multiplex nucleic acid amplification test for the detection and discrimination of Influenza A & B from nasopharyngeal specimens, and has been validated for use at [facility]. Negative results do not preclude Influenza A/B infections, and should not be used as the sole basis for diagnosis, treatment, or other management decisions. If Influenza A/B and RSV PCR results are negative, testing for Parainfluenza virus, Adenovirus and Metapneumovirus is routinely performed for [facility] [place] and [place] care in[place], and is available on other patients by placing an add-on request. [facility] FLUAV RNA ISAK+probe Ql (Resp) Not detected Normal Not Detected [facility] Comment on above: Order Comment: This assay is an in vitro diagnostic multiplex nucleic acid amplification test for the detection and discrimination of Influenza A & B from nasopharyngeal specimens, and has been validated for use at [facility]. Negative results do not preclude Influenza A/B infections, and should not be used as the sole basis for diagnosis, treatment, or other management decisions. If Influenza A/B and RSV PCR results are negative, testing for Parainfluenza virus, Adenovirus and Metapneumovirus is routinely performed for [facility] [place] and intensive care inpatients, and is available on other patients by placing an add-on request. Performed By: #### 4 8509-4 #### SARKAR KRISTIAN ([id number]) [facility] ([facility]) [address] [place] [address] FLUBV RNA ISAK+probe Ql (Resp) Not detected Normal Not Detected [facility] Comment on above: Order Comment: This assay is an in vitro diagnostic multiplex nucleic acid amplification test for the detection and discrimination of Influenza A & B from nasopharyngeal specimens, and has been validated for use at [facility]. Negative results do not preclude Influenza A/B infections, and should not be used as the sole basis for diagnosis, treatment, or other management decisions. If Influenza A/B and RSV PCR results are negative, testing for Parainfluenza virus, Adenovirus and Metapneumovirus is routinely performed for [facility] [place] and intensive care inpatients, and is available on other patients by placing an add-on request. Performed By: #### 4 8509-4 #### MELLO TOWNSEND ([id number]) [facility] ([facility]) [address] [place], [place] [id number] Fibrin D-dimer FEUon 025 Fibrin D-dimer FEU (PPP) [Mass/Vol] 1367 ng/mL FEU High <=500 [facility] Comment on above: Order Comment: The V TE Exclusion D-Dimer assay is reported in ng/mL Fibrinogen Equivalent Units (FEU). Per zumba instructor's instructions for use, a value of less than 500 ng/mL (FEU) may help to exclude DVT or PE in outpatients when the assay is used with a clinical pretest probability assessment.([facility] must utilize and document eCalc 'Wells Score Deep Vein Thrombosis Risk' for DVT exclusion only. Emergency Department should utilize Guidelines for Emergency Department Use of the VTE Exclusion D-Dimer and Clinical Pretest probability assessment model for DVT or PE exclusion.) Performed By: #### 4 8065-7 #### MELLO TOWNSEND ([id number]) [facility] ([facility]) [facility] [place] [address] Fibrin D-dimer FEU (PPP) [Ma ss/Vol]on 10-06-2024 Interpretation and review of laboratory results Abnormal [facility] The VTE Exclusion D-Dimer assay is reported in ng/mL Fibrinogen Equivalent Units (FEU). Per zumba instructor's instructions for use, a value of less than 500 ng/mL (FEU) may help to exclude DVT or PE in outpatients when the assay is used with a clinical pretest probability assessment.([facility] must utilize and document eCalc 'Wells Score Deep Vein Thrombosis Risk' for DVT exclusion only. Emergency Department should utilize Guidelines for Emergency Department Use of the VTE Exclusion D-Dimer and Clinical Pretest probability assessment model for DVT or PE exclusion.) [facility] No Panel Informationon 10-06 Interpretation and review of laboratory results Normal [facility] Interpretation and review of laboratory results Normal [facility] SARS coronavirus 2 RNAon SARS-CoV-2 (COVID-19) RNA ISAK+probe Ql (Resp) Not detected Normal Not Detected [facility] Comment on above: Order Comment: This assay is an FDA-cleared, in vitro diagnostic nucleic acid amplification test for the qualitative detection and differentiation of SARS CoV-2 from nasopharyngeal specimens collected from individuals with signs and symptoms of respiratory tract infections, and has been validated for use at [facility]. Negative results do not preclude COVID-19 infections and should not be used as the sole basis for diagnosis, treatment, or other management decisions. Testing for SARS CoV-2 is recommended only for patients who meet current clinical and/or epidemiological criteria defined by federal, state, or local public health directives. Performed By: #### 9 4500-6 #### SARKAR KRISTIAN ([id number]) [facility] ([facility]) [address] [place] [address] SARS-CoV-2 (COVID-19) RNA NA A+probe Ql (Resp)on 10-06-2024 This assay is an FDA-cleared, in vitro diagnostic nucleic acid amplification test for the qualitative detection and differentiation of SARS CoV-2 from nasopharyngeal specimens collected from individuals with signs and symptoms of respiratory tract infections, and has been validated for use at [facility]. Negative results do not preclude COVID-19 infections and should not be used as the sole basis for diagnosis, treatment, or other management decisions. Testing for SARS CoV-2 is recommended only for patients who meet current clinical and/or epidemiological criteria defined by federal, state, or local public health directives. [facility] Sars-CoV-2 PCRon 10-06-2024 SARS-CoV-2 (COVID-19) RNA ISAK+probe Ql (Resp) Not detected Not Detected [facility] TSH WITH REFLEX TO FREE T4 I F ABNORMALon 10-06-2024 TSH Qn 2.25 m[IU]/L Normal 0.44-3.98 [facility] Comment on above: Order Comment: TSH t esting is performed using different testing methodology at [facility] than at other [facility]. Direct result comparisons should only be made within the same method. Performed By: #### T HYDS #### SARKAR KRISTIAN ([id number]) [facility] ([facility]) [address] [place] [address] TSH with reflex to Free T4 i f abnormalon 10-06-2024 TSH Qn 2.25 m[IU]/L [facility] TSH testing is perfo rmed using different testing methodology at [facility] than at other [facility]. Direct result comparisons should only be made within the same method. [facility] Tropinin I.cardiac panel Hig h sensitivity methodon 10-06-2024 Less than 99th percentile of normal range cutoff- Female and children under 18 years old <14 ng/L; Male <21 ng/L: Negative Repeat testing should be performed if clinically indicated. Female and children under 18 years old 14-50 ng/L; Male 21-50 ng/L: Consistent with possible cardiac damage and possible increased clinical risk. Serial measurements may help to assess extent of myocardial damage. >50 ng/L: Consistent with cardiac damage, increased clinical risk and myocardial infarction. Serial measurements may help assess extent of myocardial damage. NOTE: Children less than 1 year old may have higher baseline troponin levels and results should be interpreted in conjunction with the overall clinical context. NOTE: Troponin I testing is performed using a different testing methodology at [facility] than at other [facility]. Direct result comparisons should only be made within the same method. [facility] Troponin I, High Sensitivity on 10-06-2024 Tropinin I.cardiac panel High sensitivity method 4 ng/L 0 - 13 ng/L [facility] Troponin I.cardiac panelon 0 10-06-2024 Tropinin I.cardiac panel High sensitivity method 4 ng/L Normal 0-13 [facility] Comment on above: Order Comment: Less than 99th percentile of normal range cutoff- Female and children under 18 years old <14 ng/L; Male <21 ng/L: Negative Repeat testing should be performed if clinically indicated. Female and children under 18 years old 14-50 ng/L; Male 21-50 ng/L: Consistent with possible cardiac damage and possible increased clinical risk. Serial measurements may help to assess extent of myocardial damage. >50 ng/L: Consistent with cardiac damage, increased clinical risk and myocardial infarction. Serial measurements may help assess extent of myocardial damage. NOTE: Children less than 1 year old may have higher baseline troponin levels and results should be interpreted in conjunction with the overall clinical context. NOTE: Troponin I testing is performed using a different testing methodology at [facility] than at other [facility]. Direct result comparisons should only be made within the same method. Performed By: #### 8 9577-1 #### SARKAR KRISTIAN ([id number]) [facility] ([facility]) [address] [place] [id number] XR CHEST 1 VIEWon 10-06-2024 XR CHEST 1 VIEW Interpreted By: Arsenio Roy, STUDY: XR CHEST 1 VIEW; 10/06/2024 5:12 pm INDICATION: Signs/Symptoms:dyspnea. COMPARISON: None. ACCESSION NUMBER(S): [id number] ORDERING CLINICIAN: JOSE DAMON FINDINGS: The cardiomediastinal silhouette and pulmonary vasculature are within normal limits. There is ill-defined opacity at the peripheral left lung base at the costophrenic angle. The remainder of the lungs are clear. No pleural effusion or pneumothorax. IMPRESSION: Ill-defined opacity at the left lung base favored to represent atelectasis or developing pneumonia. MACRO: None. Signed by: Arsenio Roy 10/06/2024 5:34 PM Dictation workstation: [id number] [facility] XR Chest Single viewon 10-06 Ill-defined opacity at the left lung base favored to represent atelectasis or developing pneumonia. MACRO: None. Signed by: Arsenio Roy 10/06/2024 5:34 PM Dictation workstation: [id number] [facility] Interpreted By: Arsenio Roy, STUDY: XR CHEST 1 VIEW; 10/06/2024 5:12 pm INDICATION: Signs/Symptoms:dyspnea. COMPARISON: None. ACCESSION NUMBER(S): [id number] ORDERING CLINICIAN: JOSE DAMON FINDINGS: The cardiomediastinal silhouette and pulmonary vasculature are within normal limits. There is ill-defined opacity at the peripheral left lung base at the costophrenic angle. The remainder of the lungs are clear. No pleural effusion or pneumothorax. [facility] Arsenio Roy MD - 10/06/2024 Interpreted By: Arsenio Roy, STUDY: XR CHEST 1 VIEW; 10/06/2024 5:12 pm INDICATION: Signs/Symptoms:dyspnea. COMPARISON: None. ACCESSION NUMBER(S): [id number] ORDERING CLINICIAN: JOSE DAMON FINDINGS: The cardiomediastinal silhouette and pulmonary vasculature are within normal limits. There is ill-defined opacity at the peripheral left lung base at the costophrenic angle. The remainder of the lungs are clear. No pleural effusion or pneumothorax. IMPRESSION: Ill-defined opacity at the left lung base favored to represent atelectasis or developing pneumonia. MACRO: None. Signed by: Arsenio Roy 10/06/2024 5:34 PM Dictation workstation: [id number] [facility] Work Phone: Radiology Study observation (narrative) [facility] Work Phone: XR Chest Single viewOrdered By: Arsenio Roy on 10-06-2024 [facility] Work Phone: Comprehensive Metabolic Prof ilon 10-04-2024 Albumin [Mass/Vol] 3.1 g/dL Low 3.5-5.0 [facility] Comment on above: Performed By: #### L 500.4050 #### [facility] [address] [place], [place], [id number] Albumin/Globulin [Mass ratio] 0.8 {ratio} Low 0.9-2.4 [facility] Comment on above: Performed By: #### L 500.4050 #### [facility] [address] [place], [place], [id number] ALK PHOS 199 U/L High 35-104 [facility] Comment on above: Performed By: #### L 500.4050 #### [facility] [address] [place], [address] ALT [Catalytic activity/Vol] 13 U/L Normal <=34 [facility] Comment on above: Performed By: #### L 500.4050 #### [facility] [address] [place], [address] AST [Catalytic activity/Vol] 21 U/L Normal <=31 [facility] Comment on above: Performed By: #### L 500.4050 #### [facility] [address] [place], [address] Bilirubin [Mass/Vol] 0.20 mg/dL Normal 0.00-1.30 [facility] Comment on above: Performed By: #### L 500.4050 #### [facility] [address] [place], [address] BUN/CRE 16.2 RATIO Normal 10-20 [facility] Comment on above: Performed By: #### L 500.4050 #### [facility] [address] [place], [address] Calcium [Mass/Vol] 8.6 mg/dL Normal 7.6-11.0 [facility] Comment on above: Performed By: #### L 500.4050 #### [facility] [address] [place], [address] Chloride [Moles/Vol] 103 mmol/L Normal 98-108 [facility] Comment on above: Performed By: #### L 500.4050 #### [facility] [address] [place], [address] CO2 [Moles/Vol] 19.1 mmol/L Low 21.0-32.0 [facility] Comment on above: Performed By: #### L 500.4050 #### [facility] [address] [place], [address] Creatinine [Mass/Vol] 0.51 mg/dL Low 0.70-1.20 [facility] Comment on above: Performed By: #### L 500.4050 #### [facility] [address] [place], [address] ECRCL 174.98 ml/min Normal 50-250 [facility] Comment on above: Performed By: #### L 500.4050 #### [facility] [address] [place], [address] GAP 12 Normal 5-15 [facility] Comment on above: Performed By: #### L 500.4050 #### [facility] [address] [place], [address] GFR/1.73 sq M.predicted among non-blacks MDRD (S/P/Bld) [Vol rate/Area] 136 mL/min/{1.73_m2} Normal >60 [facility] Comment on above: Result Comment: mL/m in/1.73m2 CKD-EPI Creatinine Equation (2020) Performed By: #### L 500.4050 #### [facility] [address] [place], [address] Globulin (S) [Mass/Vol] 3.7 g/dL Normal 2.2-4.2 [facility] Comment on above: Performed By: #### L 500.4050 #### [facility] [address] [place], [address] Glucose [Mass/Vol] 109 mg/dL High 70-99 [facility] Comment on above: Performed By: #### L 500.4050 #### [facility] [address] [place], [address] Potassium [Moles/Vol] 3.5 mmol/L Normal 3.3-5.1 [facility] Comment on above: Performed By: #### L 500.4050 #### [facility] [address] [place], [address] Sodium [Moles/Vol] 134 mmol/L Normal 133-145 [facility] Comment on above: Performed By: #### L 500.4050 #### [facility] [address] [place], [place], [id number] T PROT 6.8 g/dL Normal 5.9-8.4 [facility] Comment on above: Performed By: #### L 500.4050 #### [facility] [address] [place], [place], [id number] Urea nitrogen [Mass/Vol] 8 mg/dL Normal 4-19 [facility] Comment on above: Performed By: #### L 500.4050 #### [facility] [address] [place], [place], [address] OB Triage Physician Noteon 0 10-04-2024 OB Triage Physician Note [facility] Medical Records Department [address] [place] [address] OB Triage Physician Note 10/04/24 0937 MR#: [id number] Acct: [id number] Name: MARYANA WILLIAM Rep #: [id number] : 2005 19 From: Tyrell Spencer MD PCP: Care Physician,No Primary Status:DEP CLI Y Location: [email or web address] HPI - General General Date of Admission: 10/03/24 Date of Service: 10/03/24 Chief Complaint: right sided pain in HPI Narrative MARYANA WILLIAM, is a 19 F who presents 3 para 1 who presents complaining of some right upper quadrant pain has been going on for couple days that is worse when she sits and does her schoolwork at her computer. She denies any headache or visual changes. She denies any increased edema. She has had good movement. She denies any nausea vomiting, fevers or chills. She denies any diarrhea or constipation. Patient is concerned because last she had preeclampsia and she states it was only found by protein in her urine so she wanted to have that checked. She presented to the emergency room and I directed them to send her to labor and delivery for further evaluation. Maternal Data Information Final COTY: 12/02/24 Gestational age: 31 3/7 [facility] Medical History Preeclampsia Home Medications ???Medication ???Instructions ???Recorded ???Last Taken ???Type vit no.95-ferrous 1 tab PO DAILY 07/18/24 Unknown Hi story fumarate 28 mg-folic acid 800 mcg tablet () Allergy/AdvReac Type Severity Reaction Status Date / Time bee venom protein (honey Allergy Severe Anaphylaxis Verified 10/03/24 19:13 bee) (bee sting) Sulfa (Sulfonamide Allergy Severe Anaphylaxis Verified 10/03/24 19:13 Antibiotics) Social History household members: family and children Smoking Status: Never smoker Physical Exam Narrative General: Awake alert no acute distress Abdomen: Soft nontender nondistended, gravid, fundus appropriate for gestational age Extremities: Trace edema, 3+ DTRs no clonus NST FHR Rate Baby A Baseline: 120 Variability:: Moderate Accelerations:: 15 x 15 Decelerations:: Variable (Associated with vasovagal reaction and decrease in maternal blood pressure after blood draw) NST Reactive:: Yes FHR Category:: Category I (For 20 minutes before discharge home after the decelerations associated with maternal hypotension) Uterine Activity:: No regular contractions Assessment Plan (1) Supervision of high risk in third trimester: PLAN: History of preeclampsia in her previous . Blood pressure is normal. Right upper quadrant pain is musculoskeletal, gets better with position changes. She does not have any tenderness on exam. Blood work is normal. No proteinuria. Discussed with her signs and symptoms of preeclampsia and to call or return to the office or labor and delivery as needed. Otherwise follow-up in the office as scheduled or as needed. Patient is comfortable with this plan. Labs were reviewed. Patient had decelerations associated with vasovagal reaction and hypotension after her blood draw. heart tones stabilized and were category 1 and reactive before discharge home. 10/04/24 0944 Date Tyrell Spencer MD Cosigner Signature (if applicable): Date CC: Dr. Tyrell Spencer MD; No Primary Care Physician Signed Normal [facility] CBC W/Diff, Automatedon 05-0 -2024 Absolute Lymph 3.17 X10 3/uL Normal 0.83-4.51 [facility] Comment on above: Performed By: #### L 100.0100 #### [facility] [address] [place], [address] Absolute Neut 11.3 X10 3/uL High 2.0-7.7 [facility] Comment on above: Performed By: #### L 100.0100 #### [facility] [address] [place], [address] Basophils/100 WBC (Bld) 0.3 % Normal 0-1 [facility] Comment on above: Performed By: #### L 100.0100 #### [facility] [address] [place], [address] Eosinophils/100 WBC (Bld) 1.2 % Normal 0-5 [facility] Comment on above: Performed By: #### L 100.0100 #### [facility] [address] [place], [address] Erythrocyte distribution width (RBC) [Ratio] 12.4 % Normal 11.6-14.6 [facility] Comment on above: Performed By: #### L 100.0100 #### [facility] [address] [place], [address] Hematocrit (Bld) [Volume fraction] 22.2 % Low 37-47 [facility] Comment on above: Performed By: #### L 100.0100 #### [facility] [address] [place], [address] Hemoglobin (Bld) [Mass/Vol] 7.4 g/dL Low 12.0-15.0 [facility] Comment on above: Performed By: #### L 100.0100 #### [facility] [address] [place], [address] IG% 0.700 Normal 0.0-0.9 [facility] Comment on above: Result Comment: IG% - Immature Granulocytes (promyelocytes, myelocytes and metamyelocytes) > 1% indicates that a LEFT SHIFT is Present. Performed By: #### L 100.0100 #### [facility] [address] [place], [address] Lymphocytes/100 WBC (Bld) 20.3 % Normal 19-41 [facility] Comment on above: Performed By: #### L 100.0100 #### [facility] [address] [place], [address] MCH (RBC) [Entitic mass] 27.2 pg Normal 27.0-32.0 [facility] Comment on above: Performed By: #### L 100.0100 #### [facility] [address] [place], [address] MCHC (RBC) [Mass/Vol] 33.3 g/dL Normal 32-36 [facility] Comment on above: Performed By: #### L 100.0100 #### [facility] [address] [place], [address] MCV (RBC) [Entitic vol] 81.6 fL Normal 81-99 [facility] Comment on above: Performed By: #### L 100.0100 #### [facility] [address] [place], [address] Monocytes/100 WBC (Bld) 5.4 % Normal 0-10 [facility] Comment on above: Performed By: #### L 100.0100 #### [facility] [address] [place], [address] Neutrophils/100 WBC (Bld) 72.1 % High 47-70 [facility] Comment on above: Performed By: #### L 100.0100 #### [facility] [address] [place], [address] Nucleated RBC (Bld) [#/Vol] 0 10*3/uL Normal 0-5 [facility] Comment on above: Performed By: #### L 100.0100 #### [facility] [address] [place], [address] Platelet mean volume (Bld) [Entitic vol] 9.6 fL Normal 6.2-12.0 [facility] Comment on above: Performed By: #### L 100.0100 #### [facility] [address] [place], [address] Platelets (Bld) [#/Vol] 457 10*3/uL High 150-450 [facility] Comment on above: Performed By: #### L 100.0100 #### [facility] [address] [place], [address] RBC (Bld) [#/Vol] 2.72 10*6/uL Low 4.2-5.4 [facility] Comment on above: Performed By: #### L 100.0100 #### [facility] [address] [place], [address] RDW SD 37.1 fl Normal 35.1-43.9 [facility] Comment on above: Performed By: #### L 100.0100 #### [facility] [address] [place], [address] WBC (Bld) [#/Vol] 15.6 10*3/uL High 4.4-11.0 [facility] Comment on above: Performed By: #### L 100.0100 #### [facility] [address] [place], [address] Emergency Department Summary on 10-03-2024 Emergency Department Summary [facility] Medical Records Department [address] [place] [address] Emergency Department Summary 10/03/24 MR#: [id number] Acct: [id number] Name: MARYANA WILLIAM Rep #: [id number] : 2005 19 From: Triston Valerio MD PCP: Care Physician,No Primary Status:REG ER Location: ED HPI History of Present Illness Chief Complaint: Chest Other Informant: patient Narrative Narrative: 19-year-old female who states she is having right-sided rib pain. It is in her right lower anterior lateral chest, she has no reason to have it it has been there for a couple days, started while she was sitting but just became worse. Nonpleuritic. Not necessarily worse when she moves around but certain movements make her more uncomfortable. She denies any dyspnea worse than she has had, she is 32 weeks and states she has had some mild dyspnea with exertion that she attributes to abdominal distention and being , states she has been like that before in before, and the main reason she is here is that she was preeclamptic before in a different , they saw a protein in her urine before her blood pressure went up and before she developed any symptoms and that is the only thing she wants done. She denies any cough or fevers except for some seasonal allergy type of rhinitis symptoms. She denies any abdominal pain, vomiting, diarrhea, blood in her stool, melena. No vaginal bleeding or discharge/leakage. No edema or pain in one of her legs or the other. No history of DVT or PE. [facility] Medical History Preeclampsia Home Medications ???Medication ???Instructions ???Recorded ???Last Taken ???Type vit no.95-ferrous 1 tab PO DAILY 07/18/24 Unknown Hi story fumarate 28 mg-folic acid 800 mcg tablet () Allergy/AdvReac Type Severity Reaction Status Date / Time bee venom protein (honey Allergy Severe Anaphylaxis Verified 10/03/24 19:13 bee) (bee sting) Sulfa (Sulfonamide Allergy Severe Anaphylaxis Verified 10/03/24 19:13 Antibiotics) Social History household members: family and children Smoking Status: Never smoker ROS ROS ED Constitutional Constitutional ED: Denies chills or fever(s) Eyes Eyes: Denies change in vision or diplopia ENT ENT ED: Denies rhinorrhea or sore throat Cardiovascular Cardiovascular: Reports as per HPI and chest pain; Denies palpitations Respiratory/Chest Respiratory/Chest: Denies cough or dyspnea Gastrointestinal Gastrointestinal: Denies abdominal pain, diarrhea, nausea or vomiting Genitourinary Genitourinary ED: Denies dysuria or hematuria Musculoskeletal Musculoskeletal: Denies back pain or neck pain Integumentary Denies abscess or rash Neurologic Neurologic: Denies headache(s), paresthesias or weakness Psychiatric Psychiatric: Denies anxiety or suicidal thoughts EXAM Physical Exam Const Vital Signs: 10/03/24 19:13 10/03/24 19:46 Temperature 97.4 F L Temperature Source Temporal Pulse Rate 103 H Respiratory Rate 18 Respiratory Effort Normal Non-Labored Blood Pressure 125/76 H Blood Pressure Mean 92 Pulse Ox 96 Oxygen Delivery Method Room Air Positive well nourished and well developed Constitutional Narrative: Well-appearing no distress General Appearance ED: well developed and NAD HEENT Reports moist mucous membranes normocephalic and atraumatic Eyes PERRL and EOMs intact bilaterally Neck full ROM and supple Chest Wall inspection of chest normal and palpation of chest normal Chest Narrative: Not able to reproduce patient's pain, the affected area just beneath and lateral to her right breast is nontender there is no crepitance or flail or subcutaneous emphysema. No splinting with deep inspiration. Resp normal respiratory effort and clear to auscultation bilaterally Cardio regular rate, regular rhythm and no murmurs GI non-tender GI Narrative: Distended about the umbilicus consistent with her trimester . No upper quadrant tenderness. Auscultation: normoactive bowel sounds Palpation: soft Back/Spine no CVA tenderness General Back: other FROM Extremity normal to inspection Extremity Narrative: No calf tenderness bilaterally General Extremety ED: Negative for edema, pulses abnormal or tenderness General Extremity: Negative for edema or pulses abnormal Neuro oriented x3, CN's II-XII intact bilaterally and no sensory deficits noted Sensorium / Orientation: awake and alert Motor Exam: strength 5/5 throughout Psych mental status grossly normal Skin no rashes or lesions noted and no wounds MDM MDM MDM Narrative Medical decision making narrative: I discussed the pos (more content not included)... Normal [facility] Protein+Creatinine Ratio,Uri neon 10-03-2024 PROT:CRE RATIO 170 mg/g CRE Normal 0-200 [facility] Comment on above: Performed By: #### L 501.0900 #### [facility] [address] [place], [address] Protein (U) [Mass/Vol] 14.6 mg/dL High 0.0-12.0 [facility] Comment on above: Performed By: #### L 501.0900 #### [facility] [address] [place], [address] UR CREAT 86.10 mg/dL Normal 28.00-217.00 [facility] Comment on above: Performed By: #### L 501.0900 #### [facility] [address] [place], [address] Urinalysis, Completeon 10-03 BACTERIA 1+ /hpf Normal None Seen [facility] Comment on above: Order Comment: CLEAN CATCH Performed By: #### L 400.0001 #### [facility] [address] [place], [address] EPI,SQUAMOUS 10-25 SEEN Normal 5-10 [facility] Comment on above: Order Comment: CLEAN CATCH Performed By: #### L 400.0001 #### [facility] [address] [place], [address] WBC 10-25 SEEN Normal 0-5 [facility] Comment on above: Order Comment: CLEAN CATCH Performed By: #### L 400.0001 #### [facility] [address] [place], [address] Mucus Ql (Urine sed) 0 SEEN Normal [facility] Comment on above: Order Comment: CLEAN CATCH Performed By: #### L 400.0001 #### [facility] [address] [place], [address] RBC 0 SEEN Normal 0-5 [facility] Comment on above: Order Comment: CLEAN CATCH Performed By: #### L 400.0001 #### [facility] [address] [place], [address] CBC W Auto Differential pane l (Bld)on 09-09-2024 Basophils (Bld) [#/Vol] 0.05 10*3/uL Normal <0.11 [facility] Comment on above: Order Comment: Speci men Type: BLOOD SPECIMENOrdering Facility: [facility] Address: [address] [place] [address] Performed By: #### 5 7021-8 ####[facility] [id number] [place] [address] [place] Basophils/100 WBC (Bld) 0.3 % Normal [facility] Comment on above: Order Comment: Speci men Type: BLOOD SPECIMENOrdering Facility: [facility] Address: [address] [place] [address] Performed By: #### 5 7021-8 ####[facility] [id number] [place] [address] [place] Differential cell count method Nom (Bld) Auto Normal [facility] Comment on above: Order Comment: Speci men Type: BLOOD SPECIMENOrdering Facility: [facility] Address: [address] [place] [address] Performed By: #### 5 7021-8 ####[facility] [id number] [place] [address] [place] Eosinophils (Bld) [#/Vol] 0.12 10*3/uL Normal <0.46 [facility] Comment on above: Order Comment: Speci men Type: BLOOD SPECIMENOrdering Facility: [facility] Address: [address] [place] [address] Performed By: #### 5 7021-8 ####[facility] [id number] [place] [address] [place] Eosinophils/100 WBC (Bld) 0.8 % Normal [facility] Comment on above: Order Comment: Speci men Type: BLOOD SPECIMENOrdering Facility: [facility] Address: [address] [place] [address] Performed By: #### 5 7021-8 ####[facility] [id number] [place] [address] [place] Erythrocyte distribution width (RBC) [Ratio] 12.9 % Normal 11.5-15.0 [facility] Comment on above: Order Comment: Speci men Type: BLOOD SPECIMENOrdering Facility: [facility] Address: [address] [place] [address] Performed By: #### 5 7021-8 ####[facility] [id number] [place] [address] [place] Hematocrit (Bld) [Volume fraction] 29.1 % Low 36.0-46.0 [facility] Comment on above: Order Comment: Speci men Type: BLOOD SPECIMENOrdering Facility: [facility] Address: [address] [place] [address] Performed By: #### 5 7021-8 ####[facility] [id number] [place] [address] [place] Hemoglobin (Bld) [Mass/Vol] 9.6 g/dL Low 11.5-15.5 [facility] Comment on above: Order Comment: Speci men Type: BLOOD SPECIMENOrdering Facility: [facility] Address: [address] [place] [address] Performed By: #### 5 7021-8 ####[facility] ARVINWNCLIA [id number] [place] [address] [place] Immature granulocytes (Bld) [#/Vol] 0.12 10*3/uL High <0.10 [facility] Comment on above: Order Comment: Speci men Type: BLOOD SPECIMENOrdering Facility: [facility] Address: [address] [place] [address] Performed By: #### 5 7021-8 ####[facility] ANAWJAMESONLIA [id number] [place] [address] [place] Immature granulocytes/100 WBC (Bld) 0.8 % Normal [facility] Comment on above: Order Comment: Speci men Type: BLOOD SPECIMENOrdering Facility: [facility] Address: [address] [place] [address] Performed By: #### 5 7021-8 ####[facility] ARVINWNCLIA [id number] [place] [address] [place] Lymphocytes (Bld) [#/Vol] 2.61 10*3/uL Normal 1.00-4.00 [facility] Comment on above: Order Comment: Speci men Type: BLOOD SPECIMENOrdering Facility: [facility] Address: [address] [place] [address] Performed By: #### 5 7021-8 ####[facility] ANATOWNCLIA [id number] [place] [address] [place] Lymphocytes/100 WBC (Bld) 17.5 % Normal [facility] Comment on above: Order Comment: Speci men Type: BLOOD SPECIMENOrdering Facility: [facility] Address: [address] [place] [address] Performed By: #### 5 7021-8 ####[facility] [id number] [place] [address] [place] MCH (RBC) [Entitic mass] 27.4 pg Normal 26.0-34.0 [facility] Comment on above: Order Comment: Speci men Type: BLOOD SPECIMENOrdering Facility: [facility] Address: [address] [place] [address] Performed By: #### 5 7021-8 ####[facility] [id number] [place] [address] [place] MCHC (RBC) [Mass/Vol] 33.0 g/dL Normal 30.5-36.0 [facility] Comment on above: Order Comment: Speci men Type: BLOOD SPECIMENOrdering Facility: [facility] Address: [address] [place] [address] Performed By: #### 5 7021-8 ####[facility] [id number] [place] [address] [place] MCV (RBC) [Entitic vol] 82.9 fL Normal 80.0-100.0 [facility] Comment on above: Order Comment: Speci men Type: BLOOD SPECIMENOrdering Facility: [facility] Address: [address] [place] [address] Performed By: #### 5 7021-8 ####[facility] [id number] [place] [address] [place] Monocytes (Bld) [#/Vol] 0.84 10*3/uL Normal <0.87 [facility] Comment on above: Order Comment: Speci men Type: BLOOD SPECIMENOrdering Facility: [facility] Address: [address] [place] [address] Performed By: #### 5 7021-8 ####[facility] [id number] [place] [address] [place] Monocytes/100 WBC (Bld) 5.6 % Normal [facility] Comment on above: Order Comment: Speci men Type: BLOOD SPECIMENOrdering Facility: [facility] Address: [address] [place] [address] Performed By: #### 5 7021-8 ####[facility] [id number] [place] [address] [place] Neutrophils (Bld) [#/Vol] 11.15 10*3/uL High 1.45-7.50 [facility] Comment on above: Order Comment: Speci men Type: BLOOD SPECIMENOrdering Facility: [facility] Address: [address] [place] [address] Performed By: #### 5 7021-8 ####[facility] [id number] [place] [address] [place] Neutrophils/100 WBC (Bld) 75.0 % Normal [facility] Comment on above: Order Comment: Speci men Type: BLOOD SPECIMENOrdering Facility: [facility] Address: [address] [place] [address] Performed By: #### 5 7021-8 ####[facility] [id number] [place] [address] [place] Nucleated RBC (Bld) [#/Vol] 10*3/uL Normal <0.01 [facility] Comment on above: Order Comment: Speci men Type: BLOOD SPECIMENOrdering Facility: [facility] Address: [address] [place] [address] Performed By: #### 5 7021-8 ####[facility] [id number] [place] [address] [place] Nucleated RBC/100 WBC (Bld) [Ratio] 0.0 /100 WBC Normal [facility] Comment on above: Order Comment: Speci men Type: BLOOD SPECIMENOrdering Facility: [facility] Address: [address] [place], [place] [address] Performed By: #### 5 7021-8 ####[facility] SLAVANCBOB [id number] [place] [address] [place] Platelet mean volume (Bld) [Entitic vol] 9.2 fL Normal 9.0-12.7 [facility] Comment on above: Order Comment: Speci men Type: BLOOD SPECIMENOrdering Facility: [facility] Address: [address] [place] [address] Performed By: #### 5 7021-8 ####[facility]ABIESMARK [id number] [place] [address] [place] Platelets (Bld) [#/Vol] 407 10*3/uL High 150-400 [facility] Comment on above: Order Comment: Speci men Type: BLOOD SPECIMENOrdering Facility: [facility] Address: [address] [place] [address] Performed By: #### 5 7021-8 ####[facility] BABIESNCEMERYA [id number] [place] [address] [place] RBC (Bld) [#/Vol] 3.51 10*6/uL Low 3.90-5.20 [facility] Comment on above: Order Comment: Speci men Type: BLOOD SPECIMENOrdering Facility: [facility] Address: [address] [place], [place] [address] Performed By: #### 5 7021-8 ####[facility] BABIESNCLIA [id number] [place] [address] [place] WBC (Bld) [#/Vol] 14.89 10*3/uL High 3.70-11.00 [facility] Comment on above: Order Comment: Speci men Type: BLOOD SPECIMENOrdering Facility: [facility] Address: [address] [place] [address] Performed By: #### 5 7021-8 ####[facility] TIMOTHY MILLTOWNCLIA [id number] [place] [address] [place] CNCOon 09-09-2024 CNCO Letter Text Normal [facility] Ferritin SerPl-mCncon 2024 Ferritin [Mass/Vol] 7.0 ng/mL Low 14.7-205.1 [facility] Comment on above: Order Comment: Speci men Type: BLOOD SPECIMENOrdering Facility: [facility] Address: [address] [place] [address] Performed By: #### 2 276-4, 57360-9 ####[facility] LABCLIA [id number] [address] [place] GESTATIONAL GLUCOSE SCREEN, 1-HOUR, 50 GRAM, NON-FASTINGon 09-09-2024 Glucose [Mass/Vol] 97 mg/dL Normal 74-134 [facility] Comment on above: Order Comment: Speci men Type: BLOOD SPECIMEN [facility] Address: [address] [place] [address] Result Comment: [facility] Congress of Obstetricians and Gynecologists (Kurtis/Juliet) guidelines state a gestational diabetes mellitus positive screen is made, in women not previously diagnosed with overt diabetes, when the 1 hr plasma glucose level is equal to or above 140 mg/dL. The [facility] Chinese Language Professor and [facility] [place] recommends a 135 mg/dL cutoff. Performed By: #### T SPN #### [facility] CLIA [id number] [address] [place] [address] [place] Iron and Iron binding capaci ty panelon 09-09-2024 Iron [Mass/Vol] 38 ug/dL Low 41-186 [facility] Comment on above: Order Comment: Speci men Type: BLOOD SPECIMENOrdering Facility: [facility] Address: [address] [place] [address] Performed By: #### 2 276-4, 48765-0 ####[facility] LABCLIA [id number] [place] [address] [place] Iron binding capacity [Mass/Vol] >538 High 232-386 [facility] Comment on above: Order Comment: Speci men Type: BLOOD SPECIMENOrdering Facility: [facility] Address: [address] [place] [address] Performed By: #### 2 276-4, 11995-5 ####[facility] LABIA [id number] [place] [address] [place] Iron/TIBC [Molar ratio] <7.1 Low 15.0-57.0 [facility] Comment on above: Order Comment: Speci men Type: BLOOD SPECIMENOrdering Facility: [facility] Address: [address] [place] [address] Performed By: #### 2 276-4, 58739-7 ####[facility] LABIA [id number] [place] [address] [place] Reagin and Treponema pallidu m IgG and IgM [Interp]on 09-09-2024 T. pallidum IgG+IgM IA Ql (S) Non-Reactive Normal Nonreactive [facility] Comment on above: Order Comment: Speci men Type: BLOOD SPECIMENOrdering Facility: [facility] Address: [address] [place] [address] Performed By: #### 7 3752-8 ####[facility] LABIA [id number] [place] [address] [place] Reagin+T pallidum IgG+IgM Se rPl-Impon 09-09-2024 Reagin and Treponema pallidum IgG and IgM [Interp] Cannot exclude recent Treponemal infection if specimen collected within 7-10 days after appearance of suspect lesions or 2-3 weeks after an exposure. Clinical correlation is required. Normal [facility] Comment on above: Order Comment: Speci men Type: BLOOD SPECIMENOrdering Facility: [facility] Address: [address] [place] [address] Performed By: #### 7 3752-8 ####[facility] LABCLIA [id number] [place] [id number] [facility] Examination level ultrasound on 07-30-2024 Indication Standard anatomic survey. History of preeclampsia Impression REMOTE READ The patient is referred for a standard anatomic survey. - Single, live, intrauterine . - biometry is consistent with the established gestational age. - No malformations were visualized on a complete standard anatomic survey. - The amniotic fluid volume is normal amount. - The placenta is anterior, fundal. - The Transabdominal cervical length measures 35 mm with no evidence of funneling or other dynamic changes. - Not all structural malformations can be detected by ultrasound examination. Recommendations Additional follow-up as clinically indicated. Maternal Assessment Height 165 cm Height (ft) 5 ft Height (in) 5 in Physical Exam Initial weight (lb) 150 lb Initial BMI 24.96 kg/m Method Transabdominal ultrasound examination. View: Adequate visualization Vera . Number of fetuses: 1 Dating LMP on: 02/26/2024 GA by LMP 22 w + 1 d COTY by LMP: 12/02/2024 Ultrasound examination on: 07/30/2024 GA by U/S based upon: AC, BPD, Femur, HC GA by U/S 22 w + 5 d COTY by U/S: 11/28/2024 Assigned: based on the LMP, selected on 07/30/2024 Assigned GA 22 w + 1 d Assigned COTY: 12/02/2024 General Evaluation Cardiac activity present. FHR 132 bpm. movements: present. Presentation: cephalic Placenta: Placental site: anterior, fundal Umbilical cord: Cord vessels: 3 vessel cord. Insertion site: normal insertion Amniotic fluid: Amount of AF: normal amount. MVP 4.4 cm Growth Overview Exam date GA BPD (mm) HC (mm) AC (mm) FL (mm) HL (mm) EFW (g) 07/30/2024 22w 1d 54 58% 203 59% 178.1 60% 40.9 93% 39.5 95% 540 78% Biometry Standard BPD 54.0 mm 22w 3d 58% Hadlock OFD 72.5 mm 22w 3d 81% Nicolaides HC 203.0 mm 22w 3d 59% Nunu Cerebellum tr 26.0 mm 23w 3d 97% Hill AC 178.1 mm 22w 5d 60% Hadlock Femur 40.9 mm 23w 3d 93% Nunu Humerus 39.5 mm 24w 0d 95% Nunu EFW 540 g 22w 5d 78% Hadlock EFW (lb) 1 lb EFW (oz) 3 oz EFW by: Hadlock (HC-AC-FL) Extended Windows Systems Architect 6.2 mm CM 3.7 mm 6% Nicolaides Extremities / Bony Struc FL / HC 0.20 Other Structures FHR 132 bpm Anatomy Cranium: normal Lateral ventricles: normal Choroid plexus: normal Midline falx: normal Cavum septi pellucidi: normal Cerebellum: normal Cisterna magna: normal Head / Neck Vermis: Normal but not required for a standard anatomy exam Neck: Normal but not required for a standard anatomy exam Nuchal fold: Normal but not required for a standard anatomy exam Lips: normal Profile: Normal but not required for a standard anatomy exam Nose: Normal but not required for a standard anatomy exam Face Maxilla: Normal but not required for a standard anatomy exam Mandible: Normal but not required for a standard anatomy exam Orbits: Normal but not required for a standard anatomy exam Lens: Normal but not required for a standard anatomy exam 4-chamber view: normal RVOT view: normal LVOT view: normal 3-vessel view: normal 8-yqgeeg-auipjdk view: normal Heart / Thorax Situs: situs solitus (normal) Aortic arch view: Normal but not required for a standard anatomy exam SVC: Normal but not required for a standard anatomy exam IVC: Normal but not required for a standard anatomy exam Cardiac axis: normal Rt lung: Normal but not required for a standard anatomy exam Lt lung: Normal but not required for a standard anatomy exam Diaphragm: Normal but not required for a standard anatomy exam Cord insertion: normal Stomach: normal Kidneys: normal Bladder: normal Genitals: normal Abdomen Abdom. wall: normal Cervical spine: normal Thoracic spine: normal Lumbar spine: normal Sacral spine: normal Arms: normal Legs: normal Rt upper arm: normal Rt forearm: normal Rt hand: normal Rt fingers: normal Lt upper arm: normal Lt forearm: normal Lt hand: normal Lt fingers: normal Rt upper leg: normal Rt lower leg: normal Rt foot: normal Lt upper leg: normal Lt lower leg: normal Lt foot: normal sex: male sex: normal Wants to know sex: yes Maternal Structures Uterus / Cervix Uterus: Visualized Cervix: Visualized Approach: Transabdominal Cervical length 35.0 mm Other: Patient declined transvaginal ultrasound for cervical length. Ovaries / Tubes / Adnexa Rt ovary: Visualized Lt ovary: Visualized Performed By: Mary Anne Arthur RDMS Read By: Stephanie Da Silva M.D. MATERNAL MEDICINE [facility] Radiology Study observation (narrative) [facility] CNOVon 07-18-2024 CNOV Office Visit (WSTR ) -------- MARYANA WILLIAM ([id number]) 1 F Date Time Provider Department 07/18/24 1:45 PM MARGO BULLARD [email or web address] During your visit today, we recorded the following information about you: Margo Bullard APRN.LOOM FIXER SUPERVISOR 07/18/2024 1:54 PM Signed 20 weeks . Patient did have some complications with her last such as preeclampsia. Patient says she has bilateral calf pain. Patient says the left is significantly worse. Patient rates it about a 6 or 7 out of 10. Patient says it is even uncomfortable when laying down. Patient also does have sick symptoms however due to and calf pain patient is being referred to the emergency room for an evaluation mother was agreeable and will take her now. Allergies As of Date: 07/18/2024 Noted Allergy Reaction VENOM-HONEY BEE 10/16/2018 10 - Anaphylaxis 7 - Swelling SULFA (SULFONAMIDE ANTIBIOTICS) 10/16/2018 4 - Hives 7 - Swelling Date Reviewed: 07/16/2024 Reviewed by: Naren Bullard MD - Fully Assessed Primary Visit Diagnosis:Bilateral calf pain [M79.661, M79.662] Prescriptions as of 07/18/2024 - ferrous sulfate (SLOW FE) 140 mg (45 mg iron) TbER Take 1 tablet by mouth once daily. - aspirin, enteric coated (ECOTRIN LOW STRENGTH) 81 mg EC tablet Take 1 tablet by mouth once daily. - PNV no.322-SG-eo5-dha-epa-fi sh ( GUMMIES) 400 mcg-35 mg- 25 mg-5 mg chew Take 1 Piece by mouth once daily. Meds Comments as of 02/06/2009: No current meds, reviewed 02/06/2009. 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 INSPECTOR Problem List As Of Date 07/18/2024 Noted Resolved ECZEMA [L25.8] Supervision of high risk , antepartum *06/10/2024 Late care affecting in secon*06/10/2024 Hx of pre-eclampsia in prior , current*06/2023 Encounter Status:Closed by MARGO BULLARD on 07/18/24 Normal [facility] Emergency Department Summary on 07-18-2024 Emergency Department Summary [facility] Medical Records Department [address] [place] [address] Emergency Department Summary 07/18/24 MR#: [id number] Acct: [id number] Name: MARYANA WILLIAM Rep #: [id number] : 2005 18 From: Solo Garza MD PCP: Care Physician,No Primary Status:PRE ER Location: ED HPI History of Present Illness Chief Complaint: General Illness Detail of Chief Complaint: Flulike symptoms and left leg pain Informant: patient Onset/Context/Timing Onset: Yesterday Context: Sudden Onset Timing: Continuous Quality: Discomfort Location: Anterior left leg Current Severity: Mild Maximum Severity: Moderate Worsened by: Walking/weightbearing Relieved by: Nothing Associated Symptoms Associated Symptoms: Patient also has flulike symptoms. Narrative Narrative: Patient is a 18-year-old G2, P1 Ab0 female who presents because of anterior left leg pain. She has have flulike symptoms but not the reason she is here. She has had no fever, chills night sweats. She does endorse rhinorrhea, congestion sore throat cough. Cough is nonproductive. Denies dyspnea or [place] exertion. There is no history of VTE. Concern is for DVT. Prior similar symptoms: No Recent Illness/Hospitalization: No PFSH PFSH Medical History (Updated 07/18/24 @ 14:[address] Solo Garza MD) Preeclampsia Medical History no medical history Home Medications ???Medication ???Instructions ???Recorded ???Last Taken ???Type vit no.95-ferrous 1 tab PO DAILY 07/18/24 Unknown Hi story fumarate 28 mg-folic acid 800 mcg tablet () Allergy/AdvReac Type Severity Reaction Status Date / Time bee venom protein (honey Allergy Severe Anaphylaxis Verified 07/18/24 14:00 bee) (bee sting) Sulfa (Sulfonamide Allergy Severe Anaphylaxis Verified 07/18/24 14:00 Antibiotics) Family History no significant family his Surgical History no surgical history Social History (Updated 07/18/24 @ 14:[address] Solo Garza MD) household members: family and children Smoking Status: Never smoker ROS ROS ED Constitutional Constitutional ED: Denies chills, fever(s) or subjective Eyes Eyes: Denies blurry vision or change in vision ENT ENT ED: Reports rhinorrhea and sore throat; Denies ear pain Cardiovascular Cardiovascular: Denies chest pain, orthopnea, palpitations or paroxysmal nocturnal dyspnea Respiratory/Chest Respiratory/Chest: Reports cough and dyspnea; Denies dyspnea on exertion, orthopnea, paroxysmal nocturnal dyspnea or sputum Gastrointestinal Gastrointestinal: Denies abdominal pain, nausea or vomiting Musculoskeletal Musculoskeletal: Reports other Details: Anterior left leg pain. Integumentary Denies rash Neurologic Neurologic: Denies paresthesias or weakness Hematologic/Lymphatic Hematologic/Lymphatic: Reports systems reviewed and no addt'l complaints, except as documented EXAM Physical Exam Const Vital Signs: 07/18/24 14:00 07/18/24 14:23 Temperature 98.7 F Temperature Source Oral Pulse Rate 123 H Respiratory Rate 20 H Respiratory Effort Normal Respiratory Pattern Normal Blood Pressure 126/78 H Blood Pressure Mean 94 Pulse Ox 98 Oxygen Delivery Method Room Air Vital signs remarkable for tachycardia. Patient's blood pressure slightly elevated. Suspect this is due to her viral upper respiratory infection. Positive well nourished and well developed Constitutional Narrative: Patient has a hoarse voice. General Appearance ED: well developed and NAD; Negative for cyanotic, diaphoretic or pallor HEENT Reports moist mucous membranes Eyes PERRL and EOMs intact bilaterally General Eye ED: Negative for pale conjunctiva Resp normal respiratory effort Cardio regular rate and regular rhythm Extremity normal to inspection Extremity Narrative: There is no swelling, discoloration, asymmetry, leg vein distention, palpable cords tenderness on the distribution deep in the system. Patient does have pain anterior left leg. PT pulses 2+ and symmetric. There is no neurovascular compromise of the left lower extremity. Neuro oriented x3 and CN's II-XII intact bilaterally Sensorium / Orientation: alert Psych mental status grossly normal Skin no rashes or lesions noted, no wounds and skin turgor normal General Skin Exam: elasticity normal; Negative for jaundice or pallor MDM MDM MDM Narrative Medical decision making narrative: Patient with upper respiratory type symptoms. Since she is not hypoxic and has no abnormal respiratory findings imaging was not obtained. Patient was informed she does not have a DVT. Her Wells score for DVT is -2. They were informed that there are no blood vessels on the anterior portion of the leg that resulted in DVT. The vessels were located in the back part of the leg (more content not included)... Normal [facility] CNCOon 06-12-2024 CNCO Letter Text Normal [facility] Bacteria Ur Culton Bacteria identified Cx Nom (U) CULTURE, URINE: No growth (<1,000 CFU/ml) Normal [facility] Comment on above: Performed By: #### T SPN #### [facility] CLIA [id number] [address] [place] [address] [place] C. trachomatis+N. gonorrhoea e DNA ISAK+probe Ql (Unsp spec)on 06-10-2024 C. trachomatis rRNA ISAK+probe Ql (Unsp spec) Not detected Normal Not detected [facility] Comment on above: Order Comment: Speci men Type: BLOOD SPECIMEN Ordering Facility: [facility] Address: [address] [place] [address] Performed By: #### T SPN #### [facility] CLIA [id number] [address] [place] [address] [place] N. gonorrhoeae rRNA ISAK+probe Ql (Unsp spec) Not detected Normal Not detected [facility] Comment on above: Order Comment: Speci men Type: BLOOD SPECIMEN Ordering Facility: [facility] Address: [address] [place] [address] Performed By: #### T SPN #### [facility] CLIA [id number] [address] [facility] [id number] [address] [place] CBC W Auto Differential pane l (Bld)on 06-10-2024 Basophils (Bld) [#/Vol] 0.03 10*3/uL Normal <0.11 [facility] Comment on above: Order Comment: Speci men Type: BLOOD SPECIMENOrdering Facility: [facility] Address: [address] [place] [address] Performed By: #### 5 7021-8 ####[facility] [id number] [place] [address] [place] Basophils/100 WBC (Bld) 0.2 % Normal [facility] Comment on above: Order Comment: Speci men Type: BLOOD SPECIMENOrdering Facility: [facility] Address: [address] [place] [address] Performed By: #### 5 7021-8 ####[facility] [id number] [place] [address] [place] Differential cell count method Nom (Bld) Auto Normal [facility] Comment on above: Order Comment: Speci men Type: BLOOD SPECIMENOrdering Facility: [facility] Address: [address] [place] [address] Performed By: #### 5 7021-8 ####[facility] [id number] [place] [address] [place] Eosinophils (Bld) [#/Vol] 0.09 10*3/uL Normal <0.46 [facility] Comment on above: Order Comment: Speci men Type: BLOOD SPECIMENOrdering Facility: [facility] Address: [address] [place] [address] Performed By: #### 5 7021-8 ####[facility] [id number] [place] [address] [place] Eosinophils/100 WBC (Bld) 0.7 % Normal [facility] Comment on above: Order Comment: Speci men Type: BLOOD SPECIMENOrdering Facility: [facility] Address: [address] [place] [address] Performed By: #### 5 7021-8 ####[facility] [id number] [place] [address] [place] Erythrocyte distribution width (RBC) [Ratio] 14.0 % Normal 11.5-15.0 [facility] Comment on above: Order Comment: Speci men Type: BLOOD SPECIMENOrdering Facility: [facility] Address: [address] [place] [address] Performed By: #### 5 7021-8 ####[facility] [id number] [place] [address] [place] Hematocrit (Bld) [Volume fraction] 33.8 % Low 36.0-46.0 [facility] Comment on above: Order Comment: Speci men Type: BLOOD SPECIMENOrdering Facility: [facility] Address: [address] [place] [address] Performed By: #### 5 7021-8 ####[facility] [id number] [place] [address] [place] Hemoglobin (Bld) [Mass/Vol] 11.6 g/dL Normal 11.5-15.5 [facility] Comment on above: Order Comment: Speci men Type: BLOOD SPECIMENOrdering Facility: [facility] Address: [address] [place] [address] Performed By: #### 5 7021-8 ####[facility] [id number] [place] [address] [place] Immature granulocytes (Bld) [#/Vol] 0.07 10*3/uL Normal <0.10 [facility] Comment on above: Order Comment: Speci men Type: BLOOD SPECIMENOrdering Facility: [facility] Address: [address] [place] [address] Performed By: #### 5 7021-8 ####[facility] KERALIA [id number] [place] [address] [place] Immature granulocytes/100 WBC (Bld) 0.6 % Normal [facility] Comment on above: Order Comment: Speci men Type: BLOOD SPECIMENOrdering Facility: [facility] Address: [address] [place] [address] Performed By: #### 5 7021-8 ####[facility] BABIESJAMESONLIA [id number] [place] [address] [place] Lymphocytes (Bld) [#/Vol] 3.57 10*3/uL Normal 1.00-4.00 [facility] Comment on above: Order Comment: Speci men Type: BLOOD SPECIMENOrdering Facility: [facility] Address: [address] [place] [address] Performed By: #### 5 7021-8 ####[facility] BABIESJAMESONLIA [id number] [place] [address] [place] Lymphocytes/100 WBC (Bld) 28.9 % Normal [facility] Comment on above: Order Comment: Speci men Type: BLOOD SPECIMENOrdering Facility: [facility] Address: [address] [place] [address] Performed By: #### 5 7021-8 ####[facility] [id number] [place] [address] [place] MCH (RBC) [Entitic mass] 27.4 pg Normal 26.0-34.0 [facility] Comment on above: Order Comment: Speci men Type: BLOOD SPECIMENOrdering Facility: [facility] Address: [address] [place] [address] Performed By: #### 5 7021-8 ####[facility] [id number] [place] [address] [place] MCHC (RBC) [Mass/Vol] 34.3 g/dL Normal 30.5-36.0 [facility] Comment on above: Order Comment: Speci men Type: BLOOD SPECIMENOrdering Facility: [facility] Address: [address] [place] [address] Performed By: #### 5 7021-8 ####[facility] [id number] [place] [address] [place] MCV (RBC) [Entitic vol] 79.9 fL Low 80.0-100.0 [facility] Comment on above: Order Comment: Speci men Type: BLOOD SPECIMENOrdering Facility: [facility] Address: [address] [place] [address] Performed By: #### 5 7021-8 ####[facility] [id number] [place] [address] [place] Monocytes (Bld) [#/Vol] 0.62 10*3/uL Normal <0.87 [facility] Comment on above: Order Comment: Speci men Type: BLOOD SPECIMENOrdering Facility: [facility] Address: [address] [place] [address] Performed By: #### 5 7021-8 ####[facility] [id number] [place] [address] [place] Monocytes/100 WBC (Bld) 5.0 % Normal [facility] Comment on above: Order Comment: Speci men Type: BLOOD SPECIMENOrdering Facility: [facility] Address: [address] [place] [address] Performed By: #### 5 7021-8 ####[facility] BABIESNCLIA [id number] [place] [address] [place] Neutrophils (Bld) [#/Vol] 7.98 10*3/uL High 1.45-7.50 [facility] Comment on above: Order Comment: Speci men Type: BLOOD SPECIMENOrdering Facility: [facility] Address: [address] [place] [address] Performed By: #### 5 7021-8 ####[facility] [id number] [place] [address] [place] Neutrophils/100 WBC (Bld) 64.6 % Normal [facility] Comment on above: Order Comment: Speci men Type: BLOOD SPECIMENOrdering Facility: [facility] Address: [address] [place] [address] Performed By: #### 5 7021-8 ####[facility] [id number] [place] [address] [place] Nucleated RBC (Bld) [#/Vol] 10*3/uL Normal <0.01 [facility] Comment on above: Order Comment: Speci men Type: BLOOD SPECIMENOrdering Facility: [facility] Address: [address] [place] [address] Performed By: #### 5 7021-8 ####[facility] [id number] [place] [address] [place] Nucleated RBC/100 WBC (Bld) [Ratio] 0.0 /100 WBC Normal [facility] Comment on above: Order Comment: Speci men Type: BLOOD SPECIMENOrdering Facility: [facility] Address: [address] [place] [address] Performed By: #### 5 7021-8 ####[facility] [id number] [place] [address] [place] Platelet mean volume (Bld) [Entitic vol] 8.9 fL Low 9.0-12.7 [facility] Comment on above: Order Comment: Speci men Type: BLOOD SPECIMENOrdering Facility: [facility] Address: [address] [place] [address] Performed By: #### 5 7021-8 ####[facility] SLAVANCEMERYA [id number] [place] [address] [place] Platelets (Bld) [#/Vol] 404 10*3/uL High 150-400 [facility] Comment on above: Order Comment: Speci men Type: BLOOD SPECIMENOrdering Facility: [facility] Address: [address] [place] [address] Performed By: #### 5 7021-8 ####[facility] BABIESNCEMERYA [id number] [place] [address] [place] RBC (Bld) [#/Vol] 4.23 10*6/uL Normal 3.90-5.20 [facility] Comment on above: Order Comment: Speci men Type: BLOOD SPECIMENOrdering Facility: [facility] Address: [address] [place] [address] Performed By: #### 5 7021-8 ####[facility] BABIESNCLIA [id number] [place] [address] [place] WBC (Bld) [#/Vol] 12.36 10*3/uL High 3.70-11.00 [facility] Comment on above: Order Comment: Speci men Type: BLOOD SPECIMENOrdering Facility: [facility] Address: [address] [place] [address] Performed By: #### 5 7021-8 ####[facility] BABIESNCLIA [id number] [place] [address] [place] [facility] [place] HBV surface Ag Ser Qlon 0 HBV surface Ag Ql (S) Negative Normal Negative [facility] Comment on above: Order Comment: Speci men Type: BLOOD SPECIMENOrdering Facility: [facility] Address: [address] [place] [address] Performed By: #### 1 6128-1, 5195-3 ####[facility] LABCLIA [id number] [place] [address] [place] HCV Ab Ser Qlon 06-10-2024 HCV Ab Ql (S) Negative Normal Negative [facility] Comment on above: Order Comment: Speci men Type: BLOOD SPECIMEN [facility] Address: [address] [place] [address] Result Comment: The result suggests no evidence of active infection with Hepatitis C virus. Should recent infection be suspected, repeat testing may be considered 4-6 weeks after this draw. Performed By: #### T SPN #### [facility] CLIA [id number] [address] [place] [address] [place] HIV 1+2 Ab IA Qlon HIV 1 and 2 Ab IA.rapid Nom (S/P/Bld) Normal [facility] Comment on above: Order Comment: Speci men Type: BLOOD SPECIMEN [facility] Address: [address] [place] [address] Result Comment: Test not indicated. Performed By: #### T SPN #### [facility] CLIA [id number] [address] [place] [address] [place] HIV 1+2 Ab+HIV1 p24 Ag IA Ql Non-Reactive Normal Nonreactive [facility] Comment on above: Order Comment: Speci men Type: BLOOD SPECIMEN [facility] Address: [address] [place] [address] Performed By: #### T SPN #### [facility] CLIA [id number] [address] [place] [address] [place] HIV immunoassay testing algorithm interpretation (S/P/Bld) [Interp] Normal [facility] Comment on above: Order Comment: Speci men Type: BLOOD SPECIMEN [facility] Address: [address] [place] [address] Result Comment: No e vidence of HIV-1 or HIV-2 infection. Should recent infection be suspected, repeat testing may be considered 2-3 weeks after this draw. [place] Rev. Code 3701.243(E): This information has been disclosed to you from confidential records protected from disclosure by state law. ???You shall make no further disclosure of this information without the specific, written, and informed release of the individual to whom it pertains or as otherwise permitted by state law. A general authorization for the release of medical or other information is not sufficient for the purpose of the release of HIV test results or diagnoses. Performed By: #### T SPN #### [facility] CLIA [id number] [address] [place] [address] [place] HbA1c (Bld)on 06-10-2024 Average glucose Estimated from glycated hemoglobin (Bld) [Mass/Vol] 100 mg/dL Normal [facility] Comment on above: Order Comment: Speci men Type: BLOOD SPECIMEN [facility] Address: [address] [place] [address] Result Comment: eAG: (Estimated average glucose) is a calculated value from HgbA1c and is liability claims representative of the average blood glucose level in the last 2-3 month period. Performed By: #### 5 5454-3 #### [facility] CLIA [id number] [address] [place] [address] [place] HbA1c (Bld) [Mass fraction] 5.1 % Normal 4.3-5.6 [facility] Comment on above: Order Comment: Speci men Type: BLOOD SPECIMEN [facility] Address: [address] [place] [address] Result Comment: [place] Diabetes Association guidelines indicate that patients with HgbA1c in the range 5.7-6.4% are at increased risk for development of diabetes, and intervention by lifestyle modification may be beneficial. HgbA1c greater or equal to 6.5% is considered diagnostic of diabetes. Performed By: #### 5 5454-3 #### [facility] CLIA [id number] [address] [place] [address] [place] RUBELLA IGG ANTIBODYon 06-10 RUBELLA IGG AB, QUAL Positive Normal Positive [facility] Comment on above: Order Comment: Susanne scott Type: BLOOD SPECIMEN [facility] Address: [address] [place] [address] Result Comment: The result suggests recent or past exposure to Rubella virus or history of Rubella vaccination. Positive result may also be seen due to presence of passively-transferred antibodies. Please correlate with patient's history. Performed By: #### T SPN #### [facility] CLIA [id number] [address] [place] [address] [place] Reagin and Treponema pallidu m IgG and IgM [Interp]on 06-10-2024 T. pallidum IgG+IgM IA Ql (S) Non-Reactive Normal Nonreactive [facility] Comment on above: Order Comment: Susanne scott Type: BLOOD SPECIMEN [facility] Address: [address] [place] [address] Performed By: #### T SPN #### [facility] CLIA [id number] [address] [place] [address] [place] Reagin+T pallidum IgG+IgM Se rPl-Impon 06-10-2024 Reagin and Treponema pallidum IgG and IgM [Interp] Cannot exclude recent Treponemal infection if specimen collected within 7-10 days after appearance of suspect lesions or 2-3 weeks after an exposure. Clinical correlation is required. Normal [facility] Comment on above: Order Comment: Susanne scott Type: BLOOD SPECIMEN [facility] Address: [address] [place] [address] Performed By: #### T SPN #### [facility] CLIA [id number] [address] [place] [address] [place] TYPE + SCREEN PRENATALon ABO A Normal [facility] Comment on above: Order Comment: Susanne scott Type: BLOOD SPECIMEN [facility] Address: [address] [place], [place] [address] Performed By: #### T SPN #### [facility] CLIA [id number] [address] [place] [address] [place] Rh Nom (Bld) Positive Normal [facility] Comment on above: Order Comment: Speci men Type: BLOOD SPECIMEN [facility] Address: [address] [place] [address] Performed By: #### T SPN #### [facility] CLIA [id number] [address] [place] [address] [place] TYPE AND SCREEN EXPIRATION 06/13/2024 23:59 Normal [facility] Comment on above: Order Comment: Speci men Type: BLOOD SPECIMEN [facility] Address: [address] [place] [address] Performed By: #### T SPN #### [facility] CLIA [id number] [address] [place] [address] [place] Streptococcus.beta-hemolytic Org specific cx Ql (Genital specimen)Ordered By: Torri Clark on 06-16-2023 Interpretation and review of laboratory results Normal [facility] S. agalactiae Org specific cx Ql (Genital specimen) No Group B Streptococcus (GBS) isolated [facility] CBC Anemia Panel with Reflex , PregnancyOrdered By: Genoveva Read on 06-15-2023 Reflex added, Anemia panel [facility] Comment on above: Ferritin, Vitamin B1 2, Folate, and TIBC [facility] CBC panel Auto (Bld)on 06-15 Erythrocyte distribution width (RBC) [Ratio] 11.9 % 11.5 - 14.5 % [facility] Hematocrit (Bld) [Volume fraction] 32.0 % Low 36.0 - 46.0 % [facility] Hemoglobin (Bld) [Mass/Vol] 10.2 g/dL Low 12.0 - 16.0 g/dL [facility] Interpretation and review of laboratory results Abnormal [facility] MCH (RBC) [Entitic mass] 26.3 pg 26.0 - 34.0 pg [facility] MCHC (RBC) [Mass/Vol] 31.9 g/dL Low 32.0 - 36.0 g/dL [facility] MCV (RBC) [Entitic vol] 83 fL 80 - 100 fL [facility] Nucleated RBC/100 WBC (Bld) [Ratio] 0.0 % [facility] Platelets (Bld) [#/Vol] 339 10*3/uL [facility] RBC (Bld) [#/Vol] 3.88 10*6/uL Low [facility] WBC (Bld) [#/Vol] 23.0 10*3/uL High [facility] Erythrocyte distribution width (RBC) [Ratio] 11.9 % Normal 11.5-14.5 [facility] Comment on above: Performed By: #### 2 7298-9 #### FRANK TYLER ([id number]) [facility] ([facility]) [address] [place] [address] Hematocrit (Bld) [Volume fraction] 32.0 % Low 36.0-46.0 [facility] Comment on above: Performed By: #### 2 7298-9 #### FRANK TYLER ([id number]) [facility] ([facility]) [address] [place] [address] Hemoglobin (Bld) [Mass/Vol] 10.2 g/dL Low 12.0-16.0 [facility] Comment on above: Performed By: #### 2 7298-9 #### FRANK TYLER ([id number]) [facility] ([facility]) [address] [place] [address] MCH (RBC) [Entitic mass] 26.3 pg Normal 26.0-34.0 [facility] Comment on above: Performed By: #### 2 7298-9 #### FRANK TYLER ([id number]) [facility] ([facility]) [address] [place] [address] MCHC (RBC) [Mass/Vol] 31.9 g/dL Low 32.0-36.0 [facility] Comment on above: Performed By: #### 2 7298-9 #### FRANK TYLER ([id number]) [facility] ([facility]) [address] [place] [address] MCV (RBC) [Entitic vol] 83 fL Normal 80-100 [facility] Comment on above: Performed By: #### 2 7298-9 #### FRANK TYLER ([id number]) [facility] ([facility]) [address] [place] [address] Nucleated RBC/100 WBC (Bld) [Ratio] 0.0 /100 WBCs Normal 0.0-0.0 [facility] Comment on above: Performed By: #### 2 7298-9 #### FRANK TYLER ([id number]) [facility] ([facility]) [address] [place] [address] Platelets (Bld) [#/Vol] 339 x10*3/uL Normal 150-450 [facility] Comment on above: Performed By: #### 2 7298-9 #### FRANK TYLER ([id number]) [facility] ([facility]) [address] [place] [address] RBC (Bld) [#/Vol] 3.88 x10*6/uL Low 4.00-5.20 [facility] Comment on above: Performed By: #### 2 7298-9 #### FRANK TYLER ([id number]) [facility] ([facility]) [address] [place] [address] WBC (Bld) [#/Vol] 23.0 x10*3/uL High 4.4-11.3 [facility] Comment on above: Performed By: #### 2 7298-9 #### FRANK TYLER ([id number]) [facility] ([facility]) [address] [place] [address] Cobalamin (Vitamin B12) [Mas s/Vol]on 06-15-2023 Non- 211 - 911 pg/mL First Trimester >=118 pg/mL Second Trimester >=130 pg/mL Third Trimester >= 99 pg/mL Please note results will not flag based on reference ranges above. [facility] Cobalaminson 06-15-2023 Cobalamin (Vitamin B12) [Mass/Vol] 304 pg/mL Normal [facility] Comment on above: Order Comment: Non-p regnancy 211 - 911 pg/mLFirst Trimester >=118 pg/mLSecond Trimester >=130 pg/mLThird Trimester >= 99 pg/mLPlease note results will not flag based on reference ranges above. Performed By: #### 2 4323-8 #### FRANK TYLER ([id number]) [facility] ([facility]) [address] [place] [id number] Ferritinon 06-15-2023 Ferritin [Mass/Vol] 15 ng/mL Low >15 [facility] Comment on above: Performed By: #### 2 4323-8 #### FRANK TYLER ([id number]) [facility] ([facility]) [address] [place] [address] Ferritin [Mass/Vol]on 2023 Interpretation and review of laboratory results Abnormal [facility] Ferritin, Pregnancyon 2023 Ferritin [Mass/Vol] 15 ng/mL Low 15 - PIN F ng/mL [facility] Folateon 06-15-2023 Folate [Mass/Vol] 10.6 ng/mL Normal >5.0 [facility] Comment on above: Order Comment: Low < 3.4Borderline 3.4-5.0Normal >5.0Biotin interference may cause falsely elevated results. Patients taking a Biotin dose of up to 5 mg/day should refrain from taking Biotin for 24 hours before sample collection. Providers may contact their local laboratory for further information. Performed By: #### 2 4323-8 #### FRANK TYLER ([id number]) [facility] ([facility]) [address] [place] [address] Folate [Mass/Vol]on 01-11-20 24 Interpretation and review of laboratory results Normal [facility] Low <3.4 Borderline 3.4-5.0 Normal >5.0 Biotin interference may cause falsely elevated results. Patients taking a Biotin dose of up to 5 mg/day should refrain from taking Biotin for 24 hours before sample collection. Providers may contact their local laboratory for further information. [facility] Folate, Pregnancyon 06-15-19 24 Folate [Mass/Vol] 10.6 ng/mL 5.0 - PINF ng/mL [facility] Gas panelon 06-15-2023 Inhaled oxygen concentration 21 % Normal [facility] Comment on above: Order Comment: PRN p er provider discretion. Performed By: #### 2 7298-9 #### FRANK TYLER ([id number]) [facility] ([facility]) [address] [place] [address] Gas panel (BldCoA)on 024 Base excess Calc (BldCoA) [Moles/Vol] -5.2 mmol/L -10.8 - -0.5 mmol/L [facility] CO2 (BldCoA) [Partial pressure] 65 [facility] HCO3 (BldCoA) [Moles/Vol] 24.3 mmol/L 15.0 - 29.0 mmol/L [facility] Inhaled oxygen concentration 21 % [facility] Interpretation and review of laboratory results Abnormal [facility] Oxygen (BldCoA) [Partial pressure] 28 [facility] Oxyhemoglobin (BldCoA) [Mass fraction] 36.0 % Low 94.0 - 98.0 % [facility] pH (BldCoA) 7.18 pH 7.08 - 7.39 pH [facility] SaO2% (BldCoA) [Mass fraction] 37 % 3 - 69 % [facility] Base excess Calc (BldCoA) [Moles/Vol] -5.2 mmol/L Normal -10.8--0.5 [facility] Comment on above: Order Comment: PRN p er provider discretion. Performed By: #### 2 7298-9 #### FRANK TYLER ([id number]) [facility] ([facility]) [address] [place] [address] CO2 (BldCoA) [Partial pressure] 65 mm Hg Normal 31-75 [facility] Comment on above: Order Comment: PRN p er provider discretion. Performed By: #### 2 7298-9 #### FRANK TYLER ([id number]) [facility] ([facility]) [address] [place] [address] HCO3 (BldCoA) [Moles/Vol] 24.3 mmol/L Normal 15.0-29.0 [facility] Comment on above: Order Comment: PRN p er provider discretion. Performed By: #### 2 7298-9 #### FRANK TYLER ([id number]) [facility] ([facility]) [address] [place] [address] Oxygen (BldCoA) [Partial pressure] 28 mm Hg Normal 5-31 [facility] Comment on above: Order Comment: PRN p er provider discretion. Performed By: #### 2 7298-9 #### FRANK TYLER ([id number]) [facility] ([facility]) [address] [place] [address] Oxyhemoglobin (BldCoA) [Mass fraction] 36.0 % Low 94.0-98.0 [facility] Comment on above: Order Comment: PRN p er provider discretion. Performed By: #### 2 7298-9 #### FRANK TYLER ([id number]) [facility] ([facility]) [address] [place] [address] pH (BldCoA) 7.18 pH Normal 7.08-7.39 [facility] Comment on above: Order Comment: PRN p er provider discretion. Performed By: #### 2 7298-9 #### FRANK TYLER ([id number]) [facility] ([facility]) [address] [place] [address] SaO2% (BldCoA) [Mass fraction] 37 % Normal 3-69 [facility] Comment on above: Order Comment: PRN p er provider discretion. Performed By: #### 2 7298-9 #### FRANK TYLER ([id number]) [facility] ([facility]) [address] [place] [address] Gas panel (BldCoV)on 024 Base excess Calc (BldCoV) [Moles/Vol] -4.6 mmol/L -8.1 - -0.5 mmol/L [facility] CO2 (BldCoV) [Partial pressure] 46 [facility] HCO3 (BldCoV) [Moles/Vol] 22.1 mmol/L 16.0 - 26.0 mmol/L [facility] Inhaled oxygen concentration 21 % [facility] Interpretation and review of laboratory results Abnormal [facility] Oxygen (BldCoV) [Partial pressure] 39 High [facility] Oxyhemoglobin (BldCoV) [Mass fraction] 66.3 % Low 94.0 - 98.0 % [facility] pH (BldCoV) 7.29 pH 7.19 - 7.47 pH [facility] SaO2% (BldCoV) [Mass fraction] 68 % 16 - 84 % [facility] Base excess Calc (BldCoV) [Moles/Vol] -4.6 mmol/L Normal -8.1--0.5 [facility] Comment on above: Order Comment: PRN p er provider discretion. Performed By: #### 2 7298-9 #### FRANK TYLER ([id number]) [facility] ([facility]) [address] [place] [address] CO2 (BldCoV) [Partial pressure] 46 mm Hg Normal 22-53 [facility] Comment on above: Order Comment: PRN p er provider discretion. Performed By: #### 2 7298-9 #### FRANK TYLER ([id number]) [facility] ([facility]) [address] [place] [address] HCO3 (BldCoV) [Moles/Vol] 22.1 mmol/L Normal 16.0-26.0 [facility] Comment on above: Order Comment: PRN p er provider discretion. Performed By: #### 2 7298-9 #### FRANK TYLER ([id number]) [facility] ([facility]) [address] [place] [address] Oxygen (BldCoV) [Partial pressure] 39 mm Hg High 13-37 [facility] Comment on above: Order Comment: PRN p er provider discretion. Performed By: #### 2 7298-9 #### FRANK TYLER ([id number]) [facility] ([facility]) [address] [place] [address] Oxyhemoglobin (BldCoV) [Mass fraction] 66.3 % Low 94.0-98.0 [facility] Comment on above: Order Comment: PRN p er provider discretion. Performed By: #### 2 7298-9 #### FRANK TYLER ([id number]) [facility] ([facility]) [address] [place] [address] pH (BldCoV) 7.29 pH Normal 7.19-7.47 [facility] Comment on above: Order Comment: PRN p er provider discretion. Performed By: #### 2 7298-9 #### FRANK TYLER ([id number]) [facility] ([facility]) [address] [place] [address] SaO2% (BldCoV) [Mass fraction] 68 % Normal 16-84 [facility] Comment on above: Order Comment: PRN p er provider discretion. Performed By: #### 2 7298-9 #### FRANK TYLER ([id number]) [facility] ([facility]) [address] [place] [address] Iron and Iron binding capaci ty panelon 06-15-2023 Iron [Mass/Vol] 43 ug/dL See below [facility] Comment on above: IRON- Non- Female 14-17y 28 - 175 ug/dL Non- Female >=18y 35 - 150 ug/dL First Trimester 72 - 143 ug/dL Second Trimester 44 - 178 ug/dL Third Trimester 30 - 193 ug/dL Please note results will not flag based on reference ranges above. Iron binding capacity [Mass/Vol] [facility] Comment on above: One or more of the a nalytes used in this calculation is outside the analytical range. TIBC- Non- 240 - 445 ug/dL First Trimester 278 - 403 ug/dL Second Trimester 325 - 514 ug/dL Third Trimester 359 - 609 ug/dL Please note results will not flag based on reference ranges above. Iron binding capacity.unsaturated [Mass/Vol] ug/dL ug/dL [facility] Iron saturation [Mass fraction] [facility] Comment on above: % SATURATION-PREGNAN CY Non- 25 - 45 % First Trimester 7 - 57 % Second Trimester 10 - 44 % Third Trimester 5 - 37 % Please note results will not flag based on reference ranges above. One or more analytes used in this calculation is outside of the analytical measurement range. Calculation cannot be performed. Iron [Mass/Vol] 43 ug/dL Normal See below [facility] Comment on above: Result Comment: IRON - Non- Female 14-17y 28 - 175 ug/dL Non- Female >=18y 35 - 150 ug/dL First Trimester 72 - 143 ug/dL Second Trimester 44 - 178 ug/dL Third Trimester 30 - 193 ug/dL Please note results will not flag based on reference ranges above. Performed By: #### 2 7298-9 #### FRANK TYLER ([id number]) [facility] ([facility]) [address] [place] [address] Iron binding capacity [Mass/Vol] Normal [facility] Comment on above: Result Comment: One or more of the analytes used in this calculation is outside the analytical range. TIBC- Non- 240 - 445 ug/dL First Trimester 278 - 403 ug/dL Second Trimester 325 - 514 ug/dL Third Trimester 359 - 609 ug/dL Please note results will not flag based on reference ranges above. Performed By: #### 2 7298-9 #### FRANK TYLER ([id number]) [facility] ([facility]) [address] [place] [address] Iron binding capacity.unsaturated [Mass/Vol] >450 Normal [facility] Comment on above: Performed By: #### 2 7298-9 #### FRANK TYLER ([id number]) [facility] ([facility]) [address] [place] [address] Iron saturation [Mass fraction] Normal [facility] Comment on above: Result Comment: % SA TURATION- Non- 25 - 45 % First Trimester 7 - 57 % Second Trimester 10 - 44 % Third Trimester 5 - 37 % Please note results will not flag based on reference ranges above. One or more analytes used in this calculation is outside of the analytical measurement range. Calculation cannot be performed. Performed By: #### 2 7298-9 #### FRANK TYLER ([id number]) [facility] ([facility]) [address] [place] [address] No Panel Informationon 06-15 [facility] REFLEX ADDED, ANEMIA PANELon 06-15-2023 REFLEX ADDED, ANEMIA PANEL Normal [facility] Comment on above: Result Comment: Ferr itin, Vitamin B12, Folate, and TIBC Performed By: #### 2 7298-9 #### FRANK TYLER ([id number]) [facility] ([facility]) [address] [place] [address] Surgical pathology studyon 0 06-15-2023 Surgical pathology study Pathology report.total SEE COMMENT Surgical Pathology Case: [id number] Authorizing Provider: Kayleen Loredo MD Collected: 06/15/2023 0622 Ordering Location: [facility] Received: 06/16/2023 [facility] 2 Obstetrics and Gynecology Pathologist: Ryan Forbes MD Specimen: PLACENTA SINGLE Path report.final diagnosis SEE COMMENT A. Placenta: Histologically mature placenta, 464 g. Accelerated villous maturation Villous infarct Peripherally inserted umbilical cord with amniotic web at insertion site. Laboratory comment By the signature on this report, the individual or group listed as making the Final Interpretation/Diagnosis certifies that they have reviewed this case. Path report.relevant Hx sPEC Path report.gross observation SEE COMMENT A: Received fresh, labeled with the patient???s name and hospital number, is a placenta. Placental membranes are translucent and complete. Membrane insertion is marginal. The point of membrane rupture is 1.5 cm from the nearest margin. The umbilical cord is pale yellow, 16 cm in total length, and inserts in the placenta, 2.0 cm from the margin. There are 2 coils per 10 cm. There is a loose amniotic web 3.0 cm from cord insertion. On cut section, the cord has 3 vessels, and measures 1.0 x 0.7 cm. The placenta is discoid, 22.0 x 21.0 x 1.8 cm, and weighs 464.4 g without cord or membranes. The surface is red-blue and translucent. The maternal surface is slightly disrupted but appears complete. The cut surface is dark red and spongy. There are multiple pale yellow rubbery areas along the periphery of the disc on the maternal surface measuring up to 2.0 cm in greatest dimension. There is also one pale yellow rubbery area on the maternal surface extending into the parenchyma measuring up to 1.5 cm in greatest dimension, located 3.0 cm from the nearest margin. Fe[employer] sections are submitted in 5 cassettes. LMP Summary of Cassettes: Specimen Label Site A 1 umbilical cord sections 2 membrane rolls 3 placental parenchyma, umbilical cord insertion site 4 placental parenchyma 5 placental parenchyma/rubbery area maternal surface Normal [facility] Vitamin B12, Pregnancyon Cobalamin (Vitamin B12) [Mass/Vol] 304 pg/mL [facility] Blood type and Indirect anti body screen panel (Bld)on 06-14-2023 ABO group Nom (Bld) A [facility] Blood group antibody screen Ql Negative [facility] D Ag Ql (Bld) Positive [facility] ABO group Nom (Bld) A Normal [facility] Comment on above: Performed By: #### 2 7298-9 #### FRANK TYLER ([id number]) [facility] ([facility]) [address] [place] [address] Blood group antibody screen Ql Negative Normal [facility] Comment on above: Performed By: #### 2 7298-9 #### FRANK TYLER ([id number]) [facility] ([facility]) [address] [place] [address] D Ag Ql (Bld) Positive Normal [facility] Comment on above: Performed By: #### 2 7298-9 #### FRANK TYLER ([id number]) [facility] ([facility]) [address] [place] [address] CBC panel Auto (Bld)on 06-14 Erythrocyte distribution width (RBC) [Ratio] 11.8 % 11.5 - 14.5 % [facility] Hematocrit (Bld) [Volume fraction] 28.6 % Low 36.0 - 46.0 % [facility] Hemoglobin (Bld) [Mass/Vol] 9.0 g/dL Low 12.0 - 16.0 g/dL [facility] Interpretation and review of laboratory results Abnormal [facility] MCH (RBC) [Entitic mass] 26.6 pg 26.0 - 34.0 pg [facility] MCHC (RBC) [Mass/Vol] 31.5 g/dL Low 32.0 - 36.0 g/dL [facility] MCV (RBC) [Entitic vol] 85 fL 80 - 100 fL [facility] Nucleated RBC/100 WBC (Bld) [Ratio] 0.2 % High [facility] Platelets (Bld) [#/Vol] 316 10*3/uL [facility] RBC (Bld) [#/Vol] 3.38 10*6/uL Low [facility] WBC (Bld) [#/Vol] 12.0 10*3/uL High [facility] Erythrocyte distribution width (RBC) [Ratio] 11.8 % Normal 11.5-14.5 [facility] Comment on above: Performed By: #### 2 7298-9 #### FRANK TYLER ([id number]) [facility] ([facility]) [address] [place] [address] Hematocrit (Bld) [Volume fraction] 28.6 % Low 36.0-46.0 [facility] Comment on above: Performed By: #### 2 7298-9 #### FRANK TYLER ([id number]) [facility] ([facility]) [address] [place] [address] Hemoglobin (Bld) [Mass/Vol] 9.0 g/dL Low 12.0-16.0 [facility] Comment on above: Performed By: #### 2 7298-9 #### FRANK TYLER ([id number]) [facility] ([facility]) [address] [place] [address] MCH (RBC) [Entitic mass] 26.6 pg Normal 26.0-34.0 [facility] Comment on above: Performed By: #### 2 7298-9 #### FRANK TYLER ([id number]) [facility] ([facility]) [address] [place] [address] MCHC (RBC) [Mass/Vol] 31.5 g/dL Low 32.0-36.0 [facility] Comment on above: Performed By: #### 2 7298-9 #### FRANK TYLER ([id number]) [facility] ([facility]) [address] [place] [address] MCV (RBC) [Entitic vol] 85 fL Normal 80-100 [facility] Comment on above: Performed By: #### 2 7298-9 #### FRANK TYLER ([id number]) [facility] ([facility]) [address] [place] [address] Nucleated RBC/100 WBC (Bld) [Ratio] 0.2 /100 WBCs High 0.0-0.0 [facility] Comment on above: Performed By: #### 2 7298-9 #### FRANK TYLER ([id number]) [facility] ([facility]) [address] [place] [address] Platelets (Bld) [#/Vol] 316 x10*3/uL Normal 150-450 [facility] Comment on above: Performed By: #### 2 7298-9 #### FRANK TYLER ([id number]) [facility] ([facility]) [address] [place] [address] RBC (Bld) [#/Vol] 3.38 x10*6/uL Low 4.00-5.20 [facility] Comment on above: Performed By: #### 2 7298-9 #### FRANK TYLER ([id number]) [facility] ([facility]) [address] [place] [address] WBC (Bld) [#/Vol] 12.0 x10*3/uL High 4.4-11.3 [facility] Comment on above: Performed By: #### 2 7298-9 #### FRANK TYLER ([id number]) [facility] ([facility]) [address] [place] [address] Comprehensive metabolic 2000 panelon 06-14-2023 Albumin BCP dye [Mass/Vol] 3.1 g/dL Low 3.4 - 5.0 g/dL [facility] ALP [Catalytic activity/Vol] 196 U/L High 33 - 110 U/L [facility] ALT With P-5'-P [Catalytic activity/Vol] 15 U/L 7 - 45 U/L [facility] Comment on above: Patients treated wit h Sulfasalazine may generate falsely decreased results for ALT. Anion gap [Moles/Vol] 13 mmol/L 10 - 20 mmol/L [facility] AST With P-5'-P [Catalytic activity/Vol] 19 U/L 9 - 39 U/L [facility] Bilirubin [Mass/Vol] 0.3 mg/dL 0.0 - 1 .2 mg/dL [facility] Calcium [Mass/Vol] 8.6 mg/dL 8.6 - 10. 6 mg/dL [facility] Chloride [Moles/Vol] 106 mmol/L 98 - 10 7 mmol/L [facility] CO2 [Moles/Vol] 23 mmol/L 21 - 32 mmol/L [facility] Creatinine [Mass/Vol] 0.59 mg/dL 0.50 - 1.05 mg/dL [facility] eGFR - PINF [facility] Comment on above: Calculations of andrey mated GFR are performed using the 2020 CKD-EPI Study Refit equation without the race variable for the IDMS-Traceable creatinine methods. https://jasn.asnjournals.org/content//ASN.3728437 988 Glucose [Mass/Vol] 76 mg/dL 74 - 99 mg/dL [facility] Interpretation and review of laboratory results Abnormal [facility] Potassium [Moles/Vol] 4.3 mmol/L 3.5 - 5.3 mmol/L [facility] Protein [Mass/Vol] 6.0 g/dL Low 6.4 - 8.2 g/dL [facility] Sodium [Moles/Vol] 138 mmol/L 136 - 145 mmol/L [facility] Urea nitrogen [Mass/Vol] 10 mg/dL 6 - 23 mg/dL [facility] Albumin BCP dye [Mass/Vol] 3.1 g/dL Low 3.4-5.0 [facility] Comment on above: Performed By: #### 2 7298-9 #### FRANK TYLER ([id number]) [facility] ([facility]) [address] [place] [address] ALP [Catalytic activity/Vol] 196 U/L High 33-110 [facility] Comment on above: Performed By: #### 2 7298-9 #### FRANK TYLER ([id number]) [facility] ([facility]) [address] [place] [address] ALT With P-5'-P [Catalytic activity/Vol] 15 U/L Normal 7-45 [facility] Comment on above: Result Comment: Zaira ents treated with Sulfasalazine may generate falsely decreased results for ALT. Performed By: #### 2 7298-9 #### FRANK TYLER ([id number]) [facility] ([facility]) [address] [place] [address] Anion gap [Moles/Vol] 13 mmol/L Normal 10-20 [facility] Comment on above: Performed By: #### 2 7298-9 #### FRANK TYLER ([id number]) [facility] ([facility]) [address] [place] [address] AST With P-5'-P [Catalytic activity/Vol] 19 U/L Normal 9-39 [facility] Comment on above: Performed By: #### 2 7298-9 #### FRANK TYLER ([id number]) [facility] ([facility]) [address] [place] [address] Bilirubin [Mass/Vol] 0.3 mg/dL Normal 0.0-1.2 [facility] Comment on above: Performed By: #### 2 7298-9 #### FRANK TYLER ([id number]) [facility] ([facility]) [address] [place] [address] Calcium [Mass/Vol] 8.6 mg/dL Normal 8.6-10.6 [facility] Comment on above: Performed By: #### 2 7298-9 #### FRANK TYLER ([id number]) [facility] ([facility]) [address] [place] [address] Chloride [Moles/Vol] 106 mmol/L Normal 98-107 [facility] Comment on above: Performed By: #### 2 7298-9 #### FRANK TYLER ([id number]) [facility] ([facility]) [address] [place] [address] CO2 [Moles/Vol] 23 mmol/L Normal 21-32 [facility] Comment on above: Performed By: #### 2 7298-9 #### FRANK TYLER ([id number]) [facility] ([facility]) [address] [place] [address] Creatinine [Mass/Vol] 0.59 mg/dL Normal 0.50-1.05 [facility] Comment on above: Performed By: #### 2 7298-9 #### FRANK TYLER ([id number]) [facility] ([facility]) [address] [place] [address] GFR/1.73 sq M.predicted MDRD (S/P/Bld) [Vol rate/Area] mL/min/{1.73_m2} Normal >60 [facility] Comment on above: Result Comment: Calc ulations of estimated GFR are performed using the 2020 CKD-EPI Study Refit equation without the race variable for the IDMS-Traceable creatinine methods. https://jasn.asnjournals.org/content//ASN.4080169 988 Performed By: #### 2 7298-9 #### FRANK TYLER ([id number]) [facility] ([facility]) [address] [place] [address] Glucose [Mass/Vol] 76 mg/dL Normal 74-99 [facility] Comment on above: Performed By: #### 2 7298-9 #### FRANK TYLER ([id number]) [facility] ([facility]) [address] [place] [address] Potassium [Moles/Vol] 4.3 mmol/L Normal 3.5-5.3 [facility] Comment on above: Performed By: #### 2 7298-9 #### FRANK TYLER ([id number]) [facility] ([facility]) [address] [place] [address] Protein [Mass/Vol] 6.0 g/dL Low 6.4-8.2 [facility] Comment on above: Performed By: #### 2 7298-9 #### FRANK TYLER ([id number]) [facility] ([facility]) [address] [place] [address] Sodium [Moles/Vol] 138 mmol/L Normal 136-145 [facility] Comment on above: Performed By: #### 2 7298-9 #### FRANK TYLER ([id number]) [facility] ([facility]) [address] [place] [address] Urea nitrogen [Mass/Vol] 10 mg/dL Normal 6-23 [facility] Comment on above: Performed By: #### 2 7298-9 ###Inderjit TYLER ([id number]) [facility] ([facility]) [address] [place] [address] Syphillis Screen, with refle x VDRLOrdered By: Buck Marshall on 06-14-2023 T. pallidum Ab Ql (S) Non-Reactive Nonreactive [facility] Comment on above: No significant level of Treponema pallidum antibody detected. Repeat testing in 2 to 4 weeks may be considered if early infection or incubating syphilis infection is suspected. T. pallidum Ab Ql (S)Ordered By: Buck Marshall on 06-14-2023 Interpretation and review of laboratory results Normal [facility] Treponema pallidum Abon 06-05 T. pallidum Ab Ql (S) Non-Reactive Normal Nonreactive [facility] Comment on above: Order Comment: This test is for Syphilis screening, for Syphilis monitoring order RPR with Titer, Syphilis Monitoring Result Comment: No s ignificant level of Treponema pallidum antibody detected. Repeat testing in 2 to 4 weeks may be considered if early infection or incubating syphilis infection is suspected. Performed By: #### 2 7298-9 #### FRANK TYLER ([id number]) [facility] ([facility]) [address] [place] [address] Blood type and Indirect anti body screen panel (Bld)on 06-13-2023 ABO group Nom (Bld) A [facility] Blood group antibody screen Ql Negative [facility] D Ag Ql (Bld) Positive [facility] ABO group Nom (Bld) A Normal [facility] Comment on above: Performed By: #### 3 4532-2 #### ÁNGEL Morton ([id number]) [facility] ([facility]) [address] [place] [id number] Blood group antibody screen Ql Negative Normal [facility] Comment on above: Performed By: #### 3 4532-2 #### ÁNGEL Morton ([id number]) [facility] ([facility]) [address] [place] [address] D Ag Ql (Bld) Positive Normal [facility] Comment on above: Performed By: #### 3 4532-2 #### ÁNGEL Morton ([id number]) [facility] ([facility] [address] [place] [address] CBC W Auto Differential pane l (Bld)on 06-13-2023 Basophils (Bld) [#/Vol] 0.07 10*3/uL [facility] Basophils/100 WBC (Bld) 0.6 % 0.0 - 2.0 % [facility] Eosinophils (Bld) [#/Vol] 0.10 10*3/uL [facility] Eosinophils/100 WBC (Bld) 0.8 % 0.0 - 6.0 % [facility] Erythrocyte distribution width (RBC) [Ratio] 11.7 % 11.5 - 14.5 % [facility] Hematocrit (Bld) [Volume fraction] 28.3 % Low 36.0 - 46.0 % [facility] Hemoglobin (Bld) [Mass/Vol] 9.1 g/dL Low 12.0 - 16.0 g/dL [facility] Immature granulocytes (Bld) [#/Vol] 0.24 10*3/uL [facility] Immature granulocytes/100 WBC (Bld) 1.9 % High 0.0 - 0.9 % [facility] Comment on above: Immature Granulocyte Count (IG) includes promyelocytes, myelocytes and metamyelocytes but does not include bands. Percent differential counts (%) should be interpreted in the context of the absolute cell counts (cells/UL). Interpretation and review of laboratory results Abnormal [facility] Lymphocytes (Bld) [#/Vol] 2.64 10*3/uL [facility] Lymphocytes/100 WBC (Bld) 20.9 % 13.0 - 44.0 % [facility] MCH (RBC) [Entitic mass] 27.1 pg 26.0 - 34.0 pg [facility] MCHC (RBC) [Mass/Vol] 32.2 g/dL 32.0 - 36.0 g/dL [facility] MCV (RBC) [Entitic vol] 84 fL 80 - 100 fL [facility] Monocytes (Bld) [#/Vol] 0.84 10*3/uL [facility] Monocytes/100 WBC (Bld) 6.7 % 2.0 - 10.0 % [facility] Neutrophils (Bld) [#/Vol] 8.73 10*3/uL High [facility] Comment on above: Percent differential counts (%) should be interpreted in the context of the absolute cell counts (cells/uL). Neutrophils/100 WBC (Bld) 69.1 % 40.0 - 80.0 % [facility] Nucleated RBC/100 WBC (Bld) [Ratio] 0.3 % High [facility] Platelets (Bld) [#/Vol] 337 10*3/uL [facility] RBC (Bld) [#/Vol] 3.36 10*6/uL Low [facility] WBC (Bld) [#/Vol] 12.6 10*3/uL High [facility] Basophils (Bld) [#/Vol] 0.07 x10*3/uL Normal 0.00-0.10 [facility] Comment on above: Performed By: #### 5 7021-8 #### ÁNGEL Morton ([id number]) [facility] ([facility]) [address] [place] [address] Basophils/100 WBC (Bld) 0.6 % Normal 0.0-2.0 [facility] Comment on above: Performed By: #### 5 7021-8 #### ÁNGEL Morton ([id number]) [facility] ([facility]) [address] [place] [address]487 Eosinophils (Bld) [#/Vol] 0.10 x10*3/uL Normal 0.00-0.70 [facility] Comment on above: Performed By: #### 5 7021-8 #### ÁNGEL Morton ([id number]) [facility] ([facility]) [address] [place] [address] 29981 Eosinophils/100 WBC (Bld) 0.8 % Normal 0.0-6.0 [facility] Comment on above: Performed By: #### 5 7021-8 #### ÁNGEL Morton ([id number]) [facility] ([facility]) [address] [place] [address] Erythrocyte distribution width (RBC) [Ratio] 11.7 % Normal 11.5-14.5 [facility] Comment on above: Performed By: #### 5 7021-8 #### ÁNGEL Morton ([id number]) [facility] ([facility]) [address] [place] [address] Hematocrit (Bld) [Volume fraction] 28.3 % Low 36.0-46.0 [facility] Comment on above: Performed By: #### 5 7021-8 #### ÁNGEL Morton ([id number]) [facility] ([facility]) [address] [place] [address]89 Hemoglobin (Bld) [Mass/Vol] 9.1 g/dL Low 12.0-16.0 [facility] Comment on above: Performed By: #### 5 7021-8 #### ÁNGEL Morton ([id number]) [facility] ([facility]) [address] [place] [address] Immature granulocytes (Bld) [#/Vol] 0.24 x10*3/uL Normal 0.00-0.70 [facility] Comment on above: Performed By: #### 5 7021-8 #### ÁNGEL Morton ([id number]) [facility] ([facility]) [address] [place] [address] 11195 Immature granulocytes/100 WBC (Bld) 1.9 % High 0.0-0.9 [facility] Comment on above: Result Comment: Sheila ture Granulocyte Count (IG) includes promyelocytes, myelocytes and metamyelocytes but does not include bands. Percent differential counts (%) should be interpreted in the context of the absolute cell counts (cells/UL). Performed By: #### 5 7021-8 #### ÁNGEL Morton ([id number]) [facility] ([facility]) [address] [place] [address] [place] [address] Lymphocytes (Bld) [#/Vol] 2.64 x10*3/uL Normal 1.20-4.80 [facility] Comment on above: Performed By: #### 5 7021-8 #### ÁNGEL Morton ([id number]) [facility] ([facility]) [address] [place] [address] 47[address] Lymphocytes/100 WBC (Bld) 20.9 % Normal 13.0-44.0 [facility] Comment on above: Performed By: #### 5 7021-8 #### ÁNGEL Morton ([id number]) [facility] ([facility]) [address] [place] [address] 16154 MCH (RBC) [Entitic mass] 27.1 pg Normal 26.0-34.0 [facility] Comment on above: Performed By: #### 5 7021-8 #### ÁNGEL Morton ([id number]) [facility] ([facility]) [address] [place] [address] 07069 MCHC (RBC) [Mass/Vol] 32.2 g/dL Normal 32.0-36.0 [facility] Comment on above: Performed By: #### 5 7021-8 #### ÁNGEL Morton ([id number]) [facility] ([facility]) [address] [place] [address] 27425 MCV (RBC) [Entitic vol] 84 fL Normal 80-100 [facility] Comment on above: Performed By: #### 5 7021-8 #### ÁNGEL Morton ([id number]) [facility] ([facility]) [address] [place] [address] 15612 Monocytes (Bld) [#/Vol] 0.84 x10*3/uL Normal 0.10-1.00 [facility] Comment on above: Performed By: #### 5 7021-8 #### ÁNGEL Morton ([id number]) [facility] ([facility]) [address] [place] [address] 29978 Monocytes/100 WBC (Bld) 6.7 % Normal 2.0-10.0 [facility] Comment on above: Performed By: #### 5 7021-8 #### ÁNGEL Morton ([id number]) [facility] ([facility]) [address] [place] [address] 31951 Neutrophils (Bld) [#/Vol] 8.73 x10*3/uL High 1.20-7.70 [facility] Comment on above: Result Comment: Perc ent differential counts (%) should be interpreted in the context of the absolute cell counts (cells/uL). Performed By: #### 5 7021-8 #### ÁNGEL Morton ([id number]) [facility] ([facility]) [address] [place] [address] 76516 Neutrophils/100 WBC (Bld) 69.1 % Normal 40.0-80.0 [facility] Comment on above: Performed By: #### 5 7021-8 #### ÁNGEL Morton ([id number]) [facility] ([facility]) [address] [place] [address] 99488 Nucleated RBC/100 WBC (Bld) [Ratio] 0.3 /100 WBCs High 0.0-0.0 [facility] Comment on above: Performed By: #### 5 7021-8 #### ÁNGEL Morton ([id number]) [facility] ([facility]) [address] [place] [address] 59568 Platelets (Bld) [#/Vol] 337 x10*3/uL Normal 150-450 [facility] Comment on above: Performed By: #### 5 7021-8 #### ÁNGEL Morton ([id number]) [facility] ([facility]) [address] [place] [address] RBC (Bld) [#/Vol] 3.36 x10*6/uL Low 4.00-5.20 [facility] Comment on above: Performed By: #### 5 7021-8 #### ÁNGEL Morton ([id number]) [facility] ([facility]) [address] [place] [address] 74973 WBC (Bld) [#/Vol] 12.6 x10*3/uL High 4.4-11.3 [facility] Comment on above: Performed By: #### 5 7021-8 #### ÁNGEL Morton ([id number]) [facility] ([facility]) [address] [place], [place] [id number] Comprehensive metabolic 2000 panelon 06-13-2023 Albumin BCP dye [Mass/Vol] 3.1 g/dL Low 3.4 - 5.0 g/dL [facility] ALP [Catalytic activity/Vol] 189 U/L High 33 - 110 U/L [facility] ALT With P-5'-P [Catalytic activity/Vol] 17 U/L 7 - 45 U/L [facility] Comment on above: Patients treated wit h Sulfasalazine may generate falsely decreased results for ALT. Anion gap [Moles/Vol] 13 mmol/L 10 - 20 mmol/L [facility] AST With P-5'-P [Catalytic activity/Vol] 21 U/L 9 - 39 U/L [facility] Bilirubin [Mass/Vol] 0.3 mg/dL 0.0 - 1 .2 mg/dL [facility] Calcium [Mass/Vol] 8.5 mg/dL Low 8.6 - 10. 6 mg/dL [facility] Chloride [Moles/Vol] 107 mmol/L 98 - 10 7 mmol/L [facility] CO2 [Moles/Vol] 24 mmol/L 21 - 32 mmol/L [facility] Creatinine [Mass/Vol] 0.65 mg/dL 0.50 - 1.05 mg/dL [facility] eGFR - PINF [facility] Comment on above: Calculations of andrey mated GFR are performed using the 2020 CKD-EPI Study Refit equation without the race variable for the IDMS-Traceable creatinine methods. https://jasn.asnjournals.org/content/early//ASN.8143653 988 Glucose [Mass/Vol] 83 mg/dL 74 - 99 mg/dL [facility] Interpretation and review of laboratory results Abnormal [facility] Potassium [Moles/Vol] 4.0 mmol/L 3.5 - 5.3 mmol/L [facility] Protein [Mass/Vol] 6.2 g/dL Low 6.4 - 8.2 g/dL [facility] Sodium [Moles/Vol] 140 mmol/L 136 - 145 mmol/L [facility] Urea nitrogen [Mass/Vol] 9 mg/dL 6 - 23 mg/dL [facility] Albumin BCP dye [Mass/Vol] 3.1 g/dL Low 3.4-5.0 [facility] Comment on above: Performed By: #### 2 4323-8 #### ÁNGEL Morton ([id number]) [facility] ([facility]) [address] [place] [address] 13426 ALP [Catalytic activity/Vol] 189 U/L High 33-110 [facility] Comment on above: Performed By: #### 2 4323-8 #### ÁNGEL Morton ([id number]) [facility] ([facility]) [address] [place] [address] 15349 ALT With P-5'-P [Catalytic activity/Vol] 17 U/L Normal 7-45 [facility] Comment on above: Result Comment: Zaira ents treated with Sulfasalazine may generate falsely decreased results for ALT. Performed By: #### 2 4323-8 #### ÁNGEL Morton ([id number]) [facility] ([facility]) [address] [place] [address] 02077 Anion gap [Moles/Vol] 13 mmol/L Normal 10-20 [facility] Comment on above: Performed By: #### 2 4323-8 #### ÁNGEL Morton ([id number]) [facility] ([facility]) [address] [place] [address] AST With P-5'-P [Catalytic activity/Vol] 21 U/L Normal 9-39 [facility] Comment on above: Performed By: #### 2 4323-8 #### ÁNGEL MILLER L ([id number]) [facility] ([facility]) [address] [place] [address] Bilirubin [Mass/Vol] 0.3 mg/dL Normal 0.0-1.2 [facility] Comment on above: Performed By: #### 2 4323-8 #### ÁNGEL Morton ([id number]) [facility] ([facility]) [address] [place] [address] 34436 Calcium [Mass/Vol] 8.5 mg/dL Low 8.6-10.6 [facility] Comment on above: Performed By: #### 2 4323-8 #### NÁGEL MILLER L ([id number]) [facility] ([facility]) [address] [place] [address] 61556 Chloride [Moles/Vol] 107 mmol/L Normal 98-107 [facility] Comment on above: Performed By: #### 2 4323-8 #### ÁNGEL MILLER L ([id number]) [facility] ([facility]) [address] [place] [address] 37050 CO2 [Moles/Vol] 24 mmol/L Normal 21-32 [facility] Comment on above: Performed By: #### 2 4323-8 #### ÁNGEL Morton ([id number]) [facility] ([facility]) [address] [place] [address] 17111 Creatinine [Mass/Vol] 0.65 mg/dL Normal 0.50-1.05 [facility] Comment on above: Performed By: #### 2 4323-8 #### ÁNGEL MILLER L ([id number]) [facility] ([facility]) [address] [place] [address] 82837 GFR/1.73 sq M.predicted MDRD (S/P/Bld) [Vol rate/Area] mL/min/{1.73_m2} Normal >60 [facility] Comment on above: Result Comment: Calc ulations of estimated GFR are performed using the 2020 CKD-EPI Study Refit equation without the race variable for the IDMS-Traceable creatinine methods. https://jasn.asnjournals.org/content//ASN.0411849 988 Performed By: #### 2 4323-8 #### ÁNGEL Morton ([id number]) [facility] ([facility]) [address] [place] [address] 10119 Glucose [Mass/Vol] 83 mg/dL Normal 74-99 [facility] Comment on above: Performed By: #### 2 4323-8 #### ÁNGEL Morton ([id number]) [facility] ([facility]) [address] [place] [address] 03994 Potassium [Moles/Vol] 4.0 mmol/L Normal 3.5-5.3 [facility] Comment on above: Performed By: #### 2 4323-8 #### ÁNGEL Morton ([id number]) [facility] ([facility]) [address] [place] [address] 18161 Protein [Mass/Vol] 6.2 g/dL Low 6.4-8.2 [facility] Comment on above: Performed By: #### 2 4323-8 #### ÁNGEL Morton ([id number]) [facility] ([facility]) [address] [place] [address] 21105 Sodium [Moles/Vol] 140 mmol/L Normal 136-145 [facility] Comment on above: Performed By: #### 2 4323-8 #### ÁNGEL Morton ([id number]) [facility] ([facility]) [address] [place] [address] 80996 Urea nitrogen [Mass/Vol] 9 mg/dL Normal 6-23 [facility] Comment on above: Performed By: #### 2 4323-8 #### ÁNGEL Morton ([id number]) [facility] ([facility]) [address] [place] [address] 70421 LDH Lactate to pyruvate reac tion [Catalytic activity/Vol]on 06-13-2023 Interpretation and review of laboratory results Normal [facility] Lactate Dehydrogenaseon LDH Lactate to pyruvate reaction [Catalytic activity/Vol] 217 U/L 84 - 246 U/L [facility] Lactate dehydrogenaseon LDH Lactate to pyruvate reaction [Catalytic activity/Vol] 217 U/L Normal 84-246 [facility] Comment on above: Performed By: #### 1 4804-9 #### ÁNGEL Morton ([id number]) [facility] ([facility]) [address] [place] [address] 65055 No Panel Informationon 06-13 Interpretation and review of laboratory results Abnormal [facility] Proteinon 06-13-2023 Protein Qn (U) 15 mg/dL Normal 5-24 [facility] Comment on above: Performed By: #### 2 7298-9 #### ÁNGEL Morton ([id number]) [facility] ([facility]) [address] [place] [address] 75076 Protein Qn (U)on 06-13-2023 Creatinine (U) [Mass/Vol] 45.1 mg/dL 20.0 - 320.0 mg/dL [facility] Interpretation and review of laboratory results Abnormal [facility] Protein/Creatinine (U) [Mass ratio] 0.33 mg/g High [facility] Creatinine (U) [Mass/Vol] 45.1 mg/dL Normal 20.0-320.0 [facility] Comment on above: Performed By: #### 2 7298-9 #### ÁNGEL Morton ([id number]) [facility] ([facility]) [address] [place] [address] 91617 Protein/Creatinine (U) [Mass ratio] 0.33 mg/mg Creat High 0.00-0.17 [facility] Comment on above: Performed By: #### 2 7298-9 #### ÁNGEL Morton ([id number]) [facility] ([facility]) [address] [place] [address] 09083 Protein, Urine Randomon Protein Qn (U) 15 mg/dL 5 - 24 mg/dL [facility] Streptococcus.beta-hemolytic on 06-13-2023 Streptococcus.beta-h emolytic Org specific cx Ql (Genital specimen) Test: Group B Streptococcus (GBS) Screen, Culture Specimen Source: Vaginal/Rectal Specimen Type: Swab Specimen Date: 06/13/2023 4:05 PM Result Date: 06/16/2023 12:07 PM Result Status: Final result Abnormal: No Resulting Lab: [facility] [id number] [place] [address] CULTURE No Group B Streptococcus (GBS) isolated Normal [facility] Comment on above: Performed By: #### 2 7298-9 #### FRANK TYLER ([id number]) [facility] ([facility]) [id number] [place] [address] Urinalysis complete panel (U )on 06-13-2023 Appearance (U) Hazy Abnormal Clear [facility] Bilirubin (U) [Mass/Vol] Negative NEGATIVE [facility] Color (U) Yellow Straw, Yellow [facility] Glucose Auto test strip (U) [Mass/Vol] Negative NEGATIVE mg/dL [facility] Ketones (U) [Mass/Vol] Negative NEGATIVE mg/dL [facility] Leukocyte esterase Auto test strip Ql (U) LARGE (3+) Abnormal NEGATIVE [facility] Nitrite Auto test strip Ql (U) Negative NEGATIVE [facility] pH (U) 7.0 [pH] 5.0, 5.5, 6.0, 6.5, 7.0, 7.5, 8.0 [facility] Protein (U) [Mass/Vol] Negative NEGATIVE mg/dL [facility] RBC (U) [#/Vol] Negative NEGATIVE [facility] Specific gravity (U) [Rel density] 1.006 1.005 - 1.035 [facility] Urobilinogen (U) [Mass/Vol] mg/dL NINF - 2.0 mg/dL [facility] Appearance (U) Hazy Normal Clear [facility] Comment on above: Performed By: #### 2 4356-8 #### ÁNGEL Morton ([id number]) [facility] ([facility]) [address] [place] [address] Bilirubin (U) [Mass/Vol] Negative Normal NEGATIVE [facility] Comment on above: Performed By: #### 2 4356-8 #### ÁNGEL Morton ([id number]) [facility] ([facility]) [address] [place] [address] 26823 Color (U) Yellow Normal Straw, Yellow [facility] Comment on above: Performed By: #### 2 4356-8 #### ÁNGLE Morton ([id number]) [facility] ([facility]) [address] [place] [address] 65174 Glucose Auto test strip (U) [Mass/Vol] Negative Normal NEGATIVE [facility] Comment on above: Performed By: #### 2 4356-8 #### ÁNGEL Morton ([id number]) [facility] ([facility]) [address] [place] [address] 39182 Ketones (U) [Mass/Vol] Negative Normal NEGATIVE [facility] Comment on above: Performed By: #### 2 4356-8 #### ÁNGEL Morton ([id number]) [facility] ([facility]) [address] [place] [address] 64994 Leukocyte esterase Auto test strip Ql (U) LARGE (3+) Abnormal NEGATIVE [facility] Comment on above: Performed By: #### 2 4356-8 #### ÁNGEL Morton ([id number]) [facility] ([facility]) [address] [place] [address] 93597 Nitrite Auto test strip Ql (U) Negative Normal NEGATIVE [facility] Comment on above: Performed By: #### 2 4356-8 #### ÁNGEL Morton ([id number]) [facility] ([facility]) [address] [place] [address] 44525 pH (U) 7.0 [pH] Normal 5.0, 5.5, 6.0, 6.5, 7.0, 7.5, 8.0 [facility] Comment on above: Performed By: #### 2 4356-8 #### ÁNGEL Morton ([id number]) [facility] ([facility]) [address] [place] [address] 98719 Protein (U) [Mass/Vol] Negative Normal NEGATIVE [facility] Comment on above: Performed By: #### 2 4356-8 #### ÁNGEL Morton ([id number]) [facility] ([facility]) [address] [place] [address] 59665 RBC (U) [#/Vol] Negative Normal NEGATIVE [facility] Comment on above: Performed By: #### 2 4356-8 #### ÁNGEL Morton ([id number]) [facility] ([facility]) [address] [place] [address]142 Specific gravity (U) [Rel density] 1.006 Normal 1.005-1.035 [facility] Comment on above: Performed By: #### 2 4356-8 #### ÁNGEL Morton ([id number]) [facility] ([facility]) [address] [place] [address] 14798 Urobilinogen (U) [Mass/Vol] mg/dL Normal <2.0 [facility] Comment on above: Performed By: #### 2 4356-8 #### ÁNGEL Morton ([id number]) [facility] ([facility]) [address] [place] [address] 81326 Urinalysis microscopic panel Auto Ql (U)on 06-13-2023 Bacteria Auto (Urine sed) [#/Area] 3+ Abnormal NONE SEEN /HPF [facility] Epithelial cells.squamous Auto (Urine sed) [#/Area] 1-9 (SPARSE) Reference range not established. /HPF [facility] RBC Auto (Urine sed) [#/Area] 1-2 NONE, 1-2, 3-5 /HPF [facility] WBC Auto (Urine sed) [#/Area] 1-5 1-5, NONE /HPF [facility] Bacteria Auto (Urine sed) [#/Area] 3+ /HPF Abnormal NONE SEEN [facility] Comment on above: Performed By: #### 5 3315-8 #### ÁNGEL Morton ([id number]) [facility] ([facility]) [address] [place] [address] 43898 Epithelial cells.squamous Auto (Urine sed) [#/Area] 1-9 (SPARSE) Normal Reference range not established. [facility] Comment on above: Performed By: #### 5 3315-8 #### ÁNGEL Morton ([id number]) [facility] ([facility]) [address] [place] [address] RBC Auto (Urine sed) [#/Area] 1-2 Normal NONE, 1-2, 3-5 [facility] Comment on above: Performed By: #### 5 3315-8 #### ÁNGEL Morton ([id number]) [facility] ([facility]) [address] [place] [address] 58600 WBC Auto (Urine sed) [#/Area] 1-5 Normal 1-5, NONE [facility] Comment on above: Performed By: #### 5 3315-8 #### ÁNGEL Morton ([id number]) [facility] ([facility]) [address] [place], [place] [id number] Bacterial vaginosison 2023 Bacterial vaginosis Ql (Vag fld) [Interp] NIKKY SCORE 0 Interpretation of the Nikky Score 0-3.....Normal vaginal microbiota 4-6.....Intermediate results 7-10....Bacterial vaginosis Yeast ABSENT Clue cells ABSENT Normal ABSENT [facility] Comment on above: Performed By: #### 6 9568-4 #### ÁNGEL Morton ([id number]) [facility] ([facility]) [address] [place], [place] [address] CBC panel Auto (Bld)on 06-07 Erythrocyte distribution width (RBC) [Ratio] 11.7 % 11.5 - 14.5 % [facility] Hematocrit (Bld) [Volume fraction] 31.9 % Low 36.0 - 46.0 % [facility] Hemoglobin (Bld) [Mass/Vol] 10.2 g/dL Low 12.0 - 16.0 g/dL [facility] Interpretation and review of laboratory results Abnormal [facility] MCH (RBC) [Entitic mass] 26.9 pg 26.0 - 34.0 pg [facility] MCHC (RBC) [Mass/Vol] 32.0 g/dL 32.0 - 36.0 g/dL [facility] MCV (RBC) [Entitic vol] 84 fL 80 - 100 fL [facility] Nucleated RBC/100 WBC (Bld) [Ratio] 0.0 % [facility] Platelets (Bld) [#/Vol] 355 10*3/uL [facility] RBC (Bld) [#/Vol] 3.79 10*6/uL Low [facility] WBC (Bld) [#/Vol] 12.1 10*3/uL High [facility] Erythrocyte distribution width (RBC) [Ratio] 11.7 % Normal 11.5-14.5 [facility] Comment on above: Performed By: #### 5 8410-2 #### FRANK TYLER ([id number]) [facility] ([facility]) [address] [place] [address] Hematocrit (Bld) [Volume fraction] 31.9 % Low 36.0-46.0 [facility] Comment on above: Performed By: #### 5 8410-2 #### FRANK TYLER ([id number]) [facility] ([facility]) [address] [place] [address] Hemoglobin (Bld) [Mass/Vol] 10.2 g/dL Low 12.0-16.0 [facility] Comment on above: Performed By: #### 5 8410-2 #### FRANK TYLER ([id number]) [facility] ([facility]) [address] [place] [address] MCH (RBC) [Entitic mass] 26.9 pg Normal 26.0-34.0 [facility] Comment on above: Performed By: #### 5 8410-2 #### FRANK TYLER ([id number]) [facility] ([facility]) [address] [place] [address] MCHC (RBC) [Mass/Vol] 32.0 g/dL Normal 32.0-36.0 [facility] Comment on above: Performed By: #### 5 8410-2 #### FRANK TYLER ([id number]) [facility] ([facility]) [address] [place] [address] MCV (RBC) [Entitic vol] 84 fL Normal 80-100 [facility] Comment on above: Performed By: #### 5 8410-2 #### FRANK TYLER ([id number]) [facility] ([facility]) [address] [place] [address] Nucleated RBC/100 WBC (Bld) [Ratio] 0.0 /100 WBCs Normal 0.0-0.0 [facility] Comment on above: Performed By: #### 5 8410-2 #### FRANK TYLER ([id number]) [facility] ([facility]) [address] [place] [address] Platelets (Bld) [#/Vol] 355 x10*3/uL Normal 150-450 [facility] Comment on above: Performed By: #### 5 8410-2 #### FRANK TYLER ([id number]) [facility] ([facility]) [address] [place] [address] RBC (Bld) [#/Vol] 3.79 x10*6/uL Low 4.00-5.20 [facility] Comment on above: Performed By: #### 5 8410-2 #### FRANK TYLER ([id number]) [facility] ([facility]) [address] [place] [address] WBC (Bld) [#/Vol] 12.1 x10*3/uL High 4.4-11.3 [facility] Comment on above: Performed By: #### 5 8410-2 #### FRANK TYLER ([id number]) [facility] ([facility]) [address] [place] [address] Comprehensive metabolic 2000 panelon 06-07-2023 Albumin BCP dye [Mass/Vol] 3.4 g/dL 3.4 - 5.0 g/dL [facility] ALP [Catalytic activity/Vol] 212 U/L High 33 - 110 U/L [facility] ALT With P-5'-P [Catalytic activity/Vol] 11 U/L 7 - 45 U/L [facility] Comment on above: Patients treated wit h Sulfasalazine may generate falsely decreased results for ALT. Anion gap [Moles/Vol] 14 mmol/L 10 - 20 mmol/L [facility] AST With P-5'-P [Catalytic activity/Vol] 17 U/L 9 - 39 U/L [facility] Bilirubin [Mass/Vol] 0.4 mg/dL 0.0 - 1 .2 mg/dL [facility] Calcium [Mass/Vol] 8.6 mg/dL 8.6 - 10. 3 mg/dL [facility] Chloride [Moles/Vol] 102 mmol/L 98 - 10 7 mmol/L [facility] CO2 [Moles/Vol] 23 mmol/L 21 - 32 mmol/L [facility] Creatinine [Mass/Vol] 0.58 mg/dL 0.50 - 1.05 mg/dL [facility] GFR/1.73 sq M.predicted MDRD (S/P/Bld) [Vol rate/Area] - PINF [facility] Comment on above: Calculations of andrey mated GFR are performed using the 2020 CKD-EPI Study Refit equation without the race variable for the IDMS-Traceable creatinine methods. https://jasn.asnjournals.org/content//ASN.8884219 988 Glucose [Mass/Vol] 91 mg/dL 74 - 99 mg/dL [facility] Interpretation and review of laboratory results Abnormal [facility] Potassium [Moles/Vol] 3.8 mmol/L 3.5 - 5.3 mmol/L [facility] Protein [Mass/Vol] 7.2 g/dL 6.4 - 8.2 g/dL [facility] Sodium [Moles/Vol] 135 mmol/L Low 136 - 145 mmol/L [facility] Urea nitrogen [Mass/Vol] 7 mg/dL 6 - 23 mg/dL [facility] Albumin BCP dye [Mass/Vol] 3.4 g/dL Normal 3.4-5.0 [facility] Comment on above: Performed By: #### 2 4323-8 #### FRANK TYLER ([id number]) [facility] ([facility]) [address] [place] [address] ALP [Catalytic activity/Vol] 212 U/L High 33-110 [facility] Comment on above: Performed By: #### 2 4323-8 #### FRANK TYLER ([id number]) [facility] ([facility]) [address] [place] [address] ALT With P-5'-P [Catalytic activity/Vol] 11 U/L Normal 7-45 [facility] Comment on above: Result Comment: Zaira ents treated with Sulfasalazine may generate falsely decreased results for ALT. Performed By: #### 2 4323-8 #### FRANK TYLER ([id number]) [facility] ([facility]) [address] [place] [address] Anion gap [Moles/Vol] 14 mmol/L Normal 10-20 [facility] Comment on above: Performed By: #### 2 4323-8 #### FRANK TYLER ([id number]) [facility] ([facility]) [address] [place] [address] AST With P-5'-P [Catalytic activity/Vol] 17 U/L Normal 9-39 [facility] Comment on above: Performed By: #### 2 4323-8 #### FRANK TYLER ([id number]) [facility] ([facility]) [address] [place] [address] Bilirubin [Mass/Vol] 0.4 mg/dL Normal 0.0-1.2 [facility] Comment on above: Performed By: #### 2 4323-8 #### FRANK TYLER ([id number]) [facility] ([facility]) [address] [place] [address] Calcium [Mass/Vol] 8.6 mg/dL Normal 8.6-10.3 [facility] Comment on above: Performed By: #### 2 4323-8 #### FRANK TYLER ([id number]) [facility] ([facility]) [address] [place] [address] Chloride [Moles/Vol] 102 mmol/L Normal 98-107 [facility] Comment on above: Performed By: #### 2 4323-8 #### FRANK TYLER ([id number]) [facility] ([facility]) [address] [place] [address] CO2 [Moles/Vol] 23 mmol/L Normal 21-32 [facility] Comment on above: Performed By: #### 2 4323-8 #### FRANK TYLER ([id number]) [facility] ([facility]) [address] [place] [address] Creatinine [Mass/Vol] 0.58 mg/dL Normal 0.50-1.05 [facility] Comment on above: Performed By: #### 2 4323-8 #### FRANK TYLER ([id number]) [facility] ([facility]) [address] [place] [address] GFR/1.73 sq M.predicted MDRD (S/P/Bld) [Vol rate/Area] mL/min/{1.73_m2} Normal >60 [facility] Comment on above: Result Comment: Calc ulations of estimated GFR are performed using the 2020 CKD-EPI Study Refit equation without the race variable for the IDMS-Traceable creatinine methods. https://jasn.asnjournals.org/content/early/ASN.1405647 988 Performed By: #### 2 4323-8 #### FRANK TYLER ([id number]) [facility] ([facility]) [address] [place] [address] Glucose [Mass/Vol] 91 mg/dL Normal 74-99 [facility] Comment on above: Performed By: #### 2 4323-8 #### FRANK TYLER ([id number]) [facility] ([facility]) [address] [place] [address] Potassium [Moles/Vol] 3.8 mmol/L Normal 3.5-5.3 [facility] Comment on above: Performed By: #### 2 4323-8 #### FRANK TYLER ([id number]) [facility] ([facility]) [address] [place] [address] Protein [Mass/Vol] 7.2 g/dL Normal 6.4-8.2 [facility] Comment on above: Performed By: #### 2 4323-8 #### FRANK TYLER ([id number]) [facility] ([facility]) [address] [place] [address] Sodium [Moles/Vol] 135 mmol/L Low 136-145 [facility] Comment on above: Performed By: #### 2 4323-8 #### FRANK TYLER ([id number]) [facility] ([facility]) [address] [place] [address] Urea nitrogen [Mass/Vol] 7 mg/dL Normal 6-23 [facility] Comment on above: Performed By: #### 2 4323-8 #### FRANK TYLER ([id number]) [facility] ([facility]) [address] [place] [address] Proteinon 06-07-2023 Protein Qn (U) 46 mg/dL High 5-24 [facility] Comment on above: Performed By: #### 2 7298-9 #### FRANK TYLER ([id number]) [facility] ([facility]) [address] [place] [address] Protein Qn (U)on 06-07-2023 Creatinine (U) [Mass/Vol] 140.8 mg/dL 20.0 - 320.0 mg/dL [facility] Interpretation and review of laboratory results Abnormal [facility] Protein/Creatinine (U) [Mass ratio] 0.33 mg/g High [facility] Creatinine (U) [Mass/Vol] 140.8 mg/dL Normal 20.0-320.0 [facility] Comment on above: Performed By: #### 2 7298-9 #### FRANK TYLER ([id number]) [facility] ([facility]) [address] [place] [address] Protein/Creatinine (U) [Mass ratio] 0.33 mg/mg Creat High 0.00-0.17 [facility] Comment on above: Performed By: #### 2 7298-9 #### FRANK TYLER ([id number]) [facility] ([facility]) [address] [place] [address] Protein, Urine Randomon 01-0 Protein Qn (U) 46 mg/dL High 5 - 24 mg/dL [facility] Urinalysis, reflex to cultur chava 05-11-2023 Urine Reflexed to Culture Not Indicated Normal [facility] Comment on above: Performed By: #### U AR #### [facility] [address] [place] [address] Bilirubin Ql (U) Negative Normal Negative [facility] Comment on above: Performed By: #### U AR #### [facility] [address] [place] [address] Clarity (U) Clear Normal Clear [facility] Comment on above: Performed By: #### U AR #### [facility] [address] [place] [address] Color (U) Yellow Normal Straw/[place] [facility] Comment on above: Performed By: #### U AR #### [facility] [address] [place] [address] Glucose Ql (U) Negative Normal Negative [facility] Comment on above: Performed By: #### U AR #### [facility] [address] [place] [address] Hemoglobin Ql (U) Negative Normal Negative [facility] Comment on above: Performed By: #### U AR #### [facility] [address] [place] [address] Ketones Ql (U) Negative Normal Negative [facility] Comment on above: Performed By: #### U AR #### [facility] [address] [place] [address] Leukocyte esterase Test strip Ql (U) Trace Normal Negative [facility] Comment on above: Performed By: #### U AR #### [facility] [address] [place] [address] Nitrite Ql (U) Negative Normal Negative [facility] Comment on above: Performed By: #### U AR #### [facility] [address] [place] [address] pH (U) 7.0 [pH] Normal 5.0-9.0 [facility] Comment on above: Performed By: #### U AR #### [facility] [address] [place] [address] Protein Ql (U) Negative Normal Negative [facility] Comment on above: Performed By: #### U AR #### [facility] [address] [place] [address] Specific gravity (U) [Rel density] 1.020 Normal 1.005-1.03 [facility] Comment on above: Performed By: #### U AR #### [facility] [address] [place] [address] Urobilinogen Qn (U) 0.2 {Khoa'U}/dL Normal < 2.0 [facility] Comment on above: Performed By: #### U AR #### [facility] [address] [place] [address] Urine Microscopicon 05-11-20 23 Epithelial cells LM Ql (Urine sed) 0-2 Normal [facility] Comment on above: Performed By: #### U ANTHONY #### [facility] [address] [place] [address] Urine Bacteria RARE Abnormal Negative [facility] Comment on above: Performed By: #### U ANTHONY #### [facility] [address] [place] [address] Urine RBC 0-2 Normal 0-2 [facility] Comment on above: Performed By: #### U ANTHONY #### [facility] [address] [place] [address] Urine WBC 0-2 Normal 0-5 [facility] Comment on above: Performed By: #### U ANTHONY #### [facility] [address] [place] [address] CBC panel Auto (Bld)on 04-19 Erythrocyte distribution width (RBC) [Ratio] 11.7 % Normal 11.5-14.5 [facility] Comment on above: Performed By: #### 5 8410-2 #### JOHN Kim ([id number]) [facility] ([facility]) [address] [place] [address] Hematocrit (Bld) [Volume fraction] 33.0 % Low 36.0-46.0 [facility] Comment on above: Performed By: #### 5 8410-2 #### JOHN Kim ([id number]) [facility] ([facility]) [address] [place] [address] Hemoglobin (Bld) [Mass/Vol] 11.0 g/dL Low 12.0-16.0 [facility] Comment on above: Performed By: #### 5 8410-2 #### JOHN Kim ([id number]) [facility] ([facility]) [address] [place] [address] MCH (RBC) [Entitic mass] 30.3 pg Normal 26.0-34.0 [facility] Comment on above: Performed By: #### 5 8410-2 #### JOHN Kim ([id number]) [facility] ([facility]) [address] [place] [address] MCHC (RBC) [Mass/Vol] 33.3 g/dL Normal 32.0-36.0 [facility] Comment on above: Performed By: #### 5 8410-2 #### JOHN Kim ([id number]) [facility] ([facility]) [address] [place] [address] MCV (RBC) [Entitic vol] 91 fL Normal 80-100 [facility] Comment on above: Performed By: #### 5 8410-2 #### JOHN Kim ([id number]) [facility] ([facility]) [address] [place] [address] Nucleated RBC/100 WBC (Bld) [Ratio] 0.0 /100 WBCs Normal 0.0-0.0 [facility] Comment on above: Performed By: #### 5 8410-2 #### JOHN Kim ([id number]) [facility] ([facility]) [address] [place] [address] Platelets (Bld) [#/Vol] 374 x10*3/uL Normal 150-450 [facility] Comment on above: Performed By: #### 5 8410-2 #### JOHN Kim ([id number]) [facility] ([facility]) [address] [place] [address] RBC (Bld) [#/Vol] 3.63 x10*6/uL Low 4.00-5.20 [facility] Comment on above: Performed By: #### 5 8410-2 #### JOHN Kim ([id number]) [facility] ([facility]) [address] [place] [address] WBC (Bld) [#/Vol] 12.3 x10*3/uL High 4.4-11.3 [facility] Comment on above: Performed By: #### 5 8410-2 #### JOHN Kim ([id number]) [facility] ([facility]) [address] [place] [address] Glucose^1H post 50 g glucose Caity 04-19-2023 Glucose 1 Hr post 50 g glucose PO [Mass/Vol] 90 mg/dL Normal <135 [facility] Comment on above: Order Comment: Diagn ostic value with glucose loading dose of 50 g. Reference values from [place] [employer]. Diabetes Care 2015;38(Suppl.1):S8-S16 Performed By: #### 1 504-0 #### JOHN GAGNONKEZIA Kim ([id number]) [facility] ([facility]) [address] [place] [address] REFLEX ADDED, ANEMIA PANELon 04-19-2023 REFLEX ADDED, ANEMIA PANEL Normal [facility] Comment on above: Result Comment: No r eflex Performed By: #### A PRFX #### ÁNGEL Morton ([id number]) [facility] ([facility]) [id number] [place] [address] Cult, Urineon 01-13-2023 Bacteria identified Cx Nom (U) MG-OBGYN Nurse [facility] DO Work Phone: GC + Chlamydia By Amplified Detectionon 01-13-2023 C. trachomatis rRNA ISAK+probe Ql (Unsp spec) Negative Negative -OBGYN Nurse [facility] DO Work Phone: Comment on above: The APTIMA Combo 2 a ssay is FDA-approved for Chlamydia trachomatis and Neisseria gonorrhoeae testing on female endocervical and vaginal swabs, ThinPrep liquid pap samples, male urine samples and urethral swabs. Performance characteristics for Chlamydia trachomatis and Neisseria gonorrhoeae testing on specific ood-HZA-zppxpgvm sample types (female urine samples) have been validated by [facility]. This laboratory is certified by CLIA to perform high complexity testing. Samples from all other sites are not validated for this method. N. gonorrhoeae rRNA ISAK+probe Ql (Unsp spec) Negative Negative MG-OBGY Nurse [facility] DO Work Phone: Comment on above: SOURCE: Urine The AP TIN Combo 2 assay is FDA-approved for Chlamydia trachomatis and Neisseria gonorrhoeae testing on female endocervical and vaginal swabs, ThinPrep liquid pap samples, male urine samples and urethral swabs. Performance characteristics for Chlamydia trachomatis and Neisseria gonorrhoeae testing on specific byo-EHZ-ylgmtyyg sample types (female urine samples) have been validated by [facility]. This laboratory is certified by CLIA to perform high complexity testing. Samples from all other sites are not validated for this method. HIV 1/2 ANTIGEN/ANTIBODY SCR EEN WITH REFLEX TO CONFIRMATIONon 01-13-2023 HIV 1+2 Ab Qn (S) Non-Reactive See Below [facility] DO Work Phone: Comment on above: SOURCE: Reference Ra nge: NONREACTIVE HIV Ag/Ab screen is performed using the [employer]ens [employer] HIV Ag/Ab Combo assay which detects the presence of HIV p24 antigen as well as antibodies to HIV-1 (Group M and O) and HIV-2..No laboratory evidence of HIV infection. If acute HIV infection is suspected, consider testing for HIV RNA by PCR (viral load). Hepatitis C Antibody Teston 01-13-2023 Hepatitis C Antibody Test Non-Reactive See Below [facility] DO Work Phone: Comment on above: SOURCE: Reference Ra nge: NONREACTIVE Results from patients taking biotin supplements or receiving high-dose biotin therapy should be interpreted with caution due to possible interference with this test. Providers may contact their local laboratory for further information. SOURCE: Reference Ra nge: NONREACTIVE Biotin interference may cause falsely decreased results. Patients taking a Biotin dose of up to 5 mg/day should refrain from taking Biotin for 24 hours before sample collection. Providers may contact their local laboratory for further information. IO HCG, Urine Test on 01-13-2023 HCG ( test) Ql (U) Positive [facility] [id number] M DO Work Phone: Laboratory - Blood bankon ABO group Nom (Bld) A [facility] DO Work Phone: Blood group antibody screen Ql Negative [facility] DO Work Phone: Rh immune globulin screen (Bld) [Interp] Positive [facility] DO Work Phone: Laboratory - Hematology and Cell countson 01-13-2023 Erythrocyte distribution width (RBC) [Ratio] 13.4 % See Below [facility] DO Work Phone: Comment on above: Reference Range: 11. 5 - 14.5 Hematocrit (Bld) [Volume fraction] 42.7 % See Below [facility] DO Work Phone: Comment on above: Reference Range: 36. 0 - 46.0 Hemoglobin (Bld) [Mass/Vol] 14.0 g/dL See Below [facility] DO Work Phone: Comment on above: Reference Range: 12. 0 - 16.0 MCHC (RBC) [Mass/Vol] 32.8 g/dL See Below [facility] DO Work Phone: Comment on above: Reference Range: 32. 0 - 36.0 MCV (RBC) [Entitic vol] 90 fL 80 - 100 [facility] DO Work Phone: Platelets (Bld) [#/Vol] 408 10*3/uL 150 - 450 [facility] DO Work Phone: RBC (Bld) [#/Vol] 4.76 {x10E12/L} See Below [facility] DO Work Phone: Comment on above: Reference Range: 4.0 0 - 5.20 WBC (Bld) [#/Vol] 9.4 10*3/uL 4.4 - 11.3 [facility] Work Phone: No Panel Informationon 01-13 NONE [facility] DO Work Phone: Rubella IgG Antibodyon 01-13 Rubella virus IgG IA Ql Positive [facility] DO Work Phone: Comment on above: INTERPRETATIVE COMME NT NEGATIVE: No IgG antibodies specific to Rubella detected. It is likely that the patient has not had a previous exposure to Rubella through infection or vaccination. Alternatively, the patient may have been exposed to Rubella but a failure to respond may indicate immunodeficiency. EQUIVOCAL:Equivocal results; obtain additional sample for retesting. POSITIVE: IgG antibody to Rubella detected. This may indicate that the patient was exposed to Rubella through infection or vaccination.The interpretation of serological tests should take into accountthe immunological status of the patient. Test results forpatients, including immunocompromised patients, neonates, andpediatric patients, reflect their capacity to respondimmunologically to the virus as well as their exposure to thepathogen. Patients treated with IVIG may demonstrate alteredresults in serological assays. SYPHILIS SCREENING WITH [facility] 01-13-2023 T. pallidum IgG+IgM IA Ql (S) Non-Reactive See Below [facility] Nurse [facility] DO Work Phone: Comment on above: Reference Range: NON REACTIVENo serologic evidence of syphilis infection.If recent exposure is suspected, repeat syphilis testingis recommended in 2 to 4 weeks. Tobacco Screening.on 023 Adult depression screening assessment No [facility] [id number] [facility] Work Phone: Fall risk assessment a) No falls within the last year [facility] [address] M DO Work Phone: Last menstrual period start date 06Oct2022 [facility] [address] [facility] DO Work Phone: Tobacco use status CP b) No [facility] [address] [facility] DO Work Phone: US OB LESS THAN 14 WEEKS SIN GLE OR FIRST GESTATIONon 12-19-2022 US OB LESS THAN 14 WEEKS SINGLE OR FIRST GESTATION EXAMINATION: OBSTETRIC ULTRASOUND 12/19/2022 TECHNIQUE: Transabdominal sonographic evaluation of the pelvis was performed. COMPARISON: None. HISTORY: ORDERING SYSTEM PROVIDED HISTORY: Early stage of TECHNOLOGIST PROVIDED HISTORY: This procedure can be scheduled via [employer]. Access your [employer] account by visiting appssavvy. Reason for exam:->Establish viability, confirm dating Reason for exam:->Transvaginal PRN FINDINGS: The uterus measures 10.0 x 7.0 x 8.5 cm in longitudinal, AP, and transverse dimensions. The cervix measures 3.7 cm in length. A single live intrauterine is identified. The heart rate is 159 beats per minute. The mean crown-rump length is 36.7 mm which corresponds to an estimated gestational age of 10 weeks and 4 days with an expected date of delivery of 07/13/2023. Neither ovary is visualized. No free fluid is noted in the pelvis. IMPRESSION: Single live intrauterine with an estimated gestational age of 10 weeks and 4 days. Interpreted by: Martin Trinh MD Signed by: Martin Trinh MD 12/19/22 Final result Normal [facility] Single live intraute rine with an estimated gestational age of 10 weeks and 4 days. [facility] RADIOLOGY EXAMINATION: OBSTETRIC ULTRASOUND 12/19/2022 TECHNIQUE: Transabdominal sonographic evaluation of the pelvis was performed. COMPARISON: None. HISTORY: ORDERING SYSTEM PROVIDED HISTORY: Early stage of TECHNOLOGIST PROVIDED HISTORY: This procedure can be scheduled via [employer]. Access your [employer] account by visiting appssavvy. Reason for exam:->Establish viability, confirm dating Reason for exam:->Transvaginal PRN FINDINGS: The uterus measures 10.0 x 7.0 x 8.5 cm in longitudinal, AP, and transverse dimensions. The cervix measures 3.7 cm in length. A single live intrauterine is identified. The heart rate is 159 beats per minute. The mean crown-rump length is 36.7 mm which corresponds to an estimated gestational age of 10 weeks and 4 days with an expected date of delivery of 07/13/2023. Neither ovary is visualized. No free fluid is noted in the pelvis. [facility] RADIOLOGY Martin Trinh MD - 12/19/2022 EXAMINATION: OBSTETRIC ULTRASOUND 12/19/2022 TECHNIQUE: Transabdominal sonographic evaluation of the pelvis was performed. COMPARISON: None. HISTORY: ORDERING SYSTEM PROVIDED HISTORY: Early stage of TECHNOLOGIST PROVIDED HISTORY: This procedure can be scheduled via [employer]. Access your [employer] account by visiting appssavvy. Reason for exam:->Establish viability, confirm dating Reason for exam:->Transvaginal PRN FINDINGS: The uterus measures 10.0 x 7.0 x 8.5 cm in longitudinal, AP, and transverse dimensions. The cervix measures 3.7 cm in length. A single live intrauterine is identified. The heart rate is 159 beats per minute. The mean crown-rump length is 36.7 mm which corresponds to an estimated gestational age of 10 weeks and 4 days with an expected date of delivery of 07/13/2023. Neither ovary is visualized. No free fluid is noted in the pelvis. IMPRESSION: Single live intrauterine with an estimated gestational age of 10 weeks and 4 days. [facility] Radiology Study observation (narrative) [facility] US OB LESS THAN 14 WEEKS SIN GLE OR FIRST GESTATIONOrdered By: Martin Trinh on 12-19-2022 [facility] Work Phone: C.trachomatis N.gonorrhoeae DNA ,Urineon 12-13-2022 Chlamydia trachomatis DNA, Urine Positive Abnormal Negative [facility] Neisseria gonorrhoeae DNA, Urine Negative Normal Negative [facility] Pain Mgt Drug Panel, Hi Res, Uron 12-12-2022 6-acetylmorphine (cutoff 20 ng/mL) Not detected Normal [facility] 7-Aminoclonazepam (cutoff 40 ng/mL) Not detected Normal [facility] Fvfhl-GV-Lgbktmlcbd (cutoff 20 ng/mL) Not detected Normal [facility] Qpvnh-UX-Atpjbuwnz (cutoff 20 ng/mL) Not detected Normal [facility] Alprazolam (cutoff 40 ng/mL) Not detected Normal [facility] Amphetamine (cutoff 100 ng/mL) Not detected Normal [facility] Barbiturates (cutoff 200 ng/mL) Not detected Normal [facility] Benzoylecgonine Ql (U) Not detected Normal [facility] Buprenorphine (cutoff 5 ng/mL) Not detected Normal [facility] Carisoprodol (cutoff 100 ng/mL) Not detected Normal [facility] Comment on above: Result Comment: The carisoprodol immunoassay has cross- reactivity to carisoprodol and meprobamate. Clonazepam (cutoff 20 ng/mL) Not detected Normal [facility] Codeine (cutoff 40 ng/mL) Not detected Normal [facility] Creatinine, Urine 197.1 mg/dL Normal 20.0-400.0 [facility] Diazepam (cutoff 50 ng/mL) Not detected Normal [facility] EER Pain Mgt Drug Panel High Res/EMIT U See Note Normal [facility] Comment on above: Result Comment: Auth orized individuals can access the [employer] Enhanced Report using the following link: [email or web address] Performed By: [facility] [address] [place] [address] [employer] Equipment Repairer: Ernesto Pelayo MD, PhD Ethyl Glucuronide (cutoff 500 ng/mL) Not detected Normal [facility] Fentanyl (cutoff 2 ng/mL) Not detected Normal [facility] Gabapentin (cutoff 100 ng/mL) Not detected Normal [facility] Hydrocodone (cutoff 40 ng/mL) Not detected Normal [facility] Hydromorphone (cutoff 40 ng/mL) Not detected Normal [facility] Lorazepam (cutoff 60 ng/mL) Not detected Normal [facility] Marijuana Metabolite (cutoff 20 ng/mL) Not detected Normal [facility] Comment on above: Result Comment: INTE RPRETIVE INFORMATION: Marijuana Metabolite The cutoff for Marijuana Metabolite (immunoassay) was changed from 20 ng/mL to 50 ng/mL, effective October 17, 2022. MDA (cutoff 200 ng/mL) Not detected Normal [facility] MDEA-Shona (cutoff 200 ng/mL) Not detected Normal [facility] MDMA-Ecstasy (cutoff 200 ng/mL) Not detected Normal [facility] Meperidine metabolite (cutoff 50 ng/mL) Not detected Normal [facility] Methadone Ql (U) Not detected Normal [facility] Methamphetamine (cutoff 400 ng/mL) Not detected Normal [facility] Methylphenidate (cutoff 100 ng/mL) Not detected Normal [facility] Midazolam (cutoff 20 ng/mL) Not detected Normal [facility] Morphine (cutoff 20 ng/mL) Not detected Normal [facility] Naloxone (cutoff 100 ng/mL) Not detected Normal [facility] Norbuprenorphine (cutoff 20 ng/mL) Not detected Normal [facility] Nordiazepam (cutoff 50 ng/mL) Not detected Normal [facility] Norfentanyl (cutoff 2 ng/mL) Not detected Normal [facility] Norhydrocodone (cutoff 100 ng/mL) Not detected Normal [facility] Noroxycodone (cutoff 100 ng/mL) Not detected Normal [facility] Noroxymorphone (cutoff 100 ng/mL) Not detected Normal [facility] Oxazepam (cutoff 50 ng/mL) Not detected Normal [facility] Oxycodone (cutoff 40 ng/mL) Not detected Normal [facility] Oxymorphone (cutoff 40 ng/mL) Not detected Normal [facility] Pain Management Drug Panel See Below Normal [facility] Comment on above: Result Comment: Meth odology: Qualitative Enzyme Immunoassay and Qualitative Liquid Chromatography-Tandem Mass Spectrometry, Quantitative Spectrophotometry The absence of expected drug(s) and/or drug metabolite(s) may indicate non-compliance, inappropriate timing of specimen collection relative to drug administration, poor drug absorption, diluted/adulterated urine, or limitations of testing. The concentration must be greater than or equal to the cutoff to be reported as present. If specific drug concentrations are required, contact the laboratory within two weeks of specimen collection to request quantification by a second analytical technique. Interpretive questions should be directed to the laboratory. Results based on immunoassay detection that do not match clinical expectations should be interpreted with caution. Confirmatory testing by mass spectrometry for immunoassay-based results is available, if ordered within two weeks of specimen collection. Additional charges apply. For medical purposes only; not valid for forensic use. This test was developed and its performance characteristics determined by [facility]. It has not been cleared or approved by the US Food and Drug Administration. This test was performed in a CLIA certified laboratory and is intended for clinical purposes. PCP (cutoff 25 ng/mL) Not detected Normal [facility] Phentermine (cutoff 100 ng/mL) Not detected Normal [facility] Pregabalin (cutoff 100 ng/mL) Not detected Normal [facility] Tapentadol (cutoff 100 ng/mL) Not detected Normal [facility] Yftxwerdgz-j-Ukjo (cutoff 200 ng/mL) Not detected Normal [facility] Temazepam (cutoff 50 ng/mL) Not detected Normal [facility] Tramadol (cutoff 200 ng/mL) Not detected Normal [facility] Zolpidem (cutoff 20 ng/mL) Not detected Normal [facility] Trichomonas vaginalis by AMD on 12-11-2022 T. vaginalis Amplified Negative Normal Negative [facility] Comment on above: Result Comment: This test was developed and its performance characteristics determined by [facility]. It has not been cleared or approved by the U.S. Food and Drug Administration. This test was performed in a CLIA-certified laboratory and is intended for clinical purposes. Interpretive Information: Trichomonas vaginalis by TMA A negative result does not completely rule out infection with T. vaginalis. Results should be interpreted in conjunction with other clinical data. This test has not been validated for use with self-collected vaginal swab specimens from patients. This test is intended for medical purposes only and is not valid for the evaluation of suspected sexual abuse or for other forensic purposes. Performed By: [facility] [address] [place] [id number] [employer] Repairer: Ernesto Pelayo MD, PhD Performed By: #### [id number] #### [facility] [address] [place] [id number] Culture, Urineon 12-08-2022 Culture, Urine ORDER#: [id number] ORDERED BY: HINA WINTER SOURCE: Urine Clean Catch COLLECTED: 12/08/22 20:09 ANTIBIOTICS AT ANIBAL.: RECEIVED : 12/08/22 20:29 Culture, Urine FINAL 12/10/22 14:11 Cult,Urine: NO SIGNIFICANT GROWTH [place] [address] Normal [facility] Comment on above: Performed By: #### C XURN #### [facility] [address] [place] [address] Trichomonas vaginalis by AMD on 12-08-2022 Specimen source Nom (Unsp spec) Urine Normal [facility] Comment on above: Performed By: #### [id number] #### [facility] [address] [place] [id number] Culture, Throaton 03-09-2022 Culture, Throat ORDER#: [id number] ORDERED BY: CARLA LIZARRAGA SOURCE: Throat Throat COLLECTED: 03/09/22 20:01 ANTIBIOTICS AT ANIBAL.: RECEIVED : 03/09/22 20:14 Culture, Throat FINAL 03/12/22 14:36 Cult,Throat: ORAL HARRIS PRESENT Performed at [facility] [address] [place] [id number] ([phone] Strep pyogenes (Beta Strep Group A) MODERATE GROWTH Normal [facility] Comment on above: Performed By: #### C XTHR #### [facility] [address] [place] [id number] HCG, Quantitative, Ordered By: Hina Winter on 10-19-2020 hCG Quant 8172 mIU/mL [facility] Phone: Comment on above: Gestational Age Expe cted HCG values (mIU/ml) 3 weeks 5-72 4 weeks 708 5 weeks 217-8,245 6 weeks 152-32,177 8 weeks 31,366-149,094 12 weeks 27,107-201,615 16 weeks 8,904-55,332 18 weeks 9,649-55,271 [facility] Phone: HCG Quanton 10-18-2020 HCG Quant 91876.0 mIU/mL Normal [facility] Comment on above: Result Comment: Gest ational Age Expected HCG values (mIU/ml) 3 weeks -72 4 weeks 708 5 weeks 217-8,245 6 weeks 152-32,177 8 weeks 31,366-149,094 12 weeks 27,107-201,615 16 weeks 8,904-55,332 18 weeks 9,649-55,271 Performed By: #### H CGQ #### [facility] [address] [place] [id number] US OB LESS THAN 14 WEEKS SIN GLE OR FIRST GESTATIONon 10-18-2020 US OB LESS THAN 14 WEEKS SINGLE OR FIRST GESTATION EXAMINATION: ULTRASOUND UTERUS, FIRST TRIMESTER REASON FOR EXAMINATION: Amenorrhea. 1 Para Miscarriage . Dates from LMP: 9 weeks 5 day. LMP: 08/10/2020 COTY(LMP): 05/17/2021 COMPARISONS: NONE FINDINGS: Transabdominal exam was performed. Transvaginal exam was performed to better visualize the uterine contents and adnexa. On the transabdominal exam, the uterus is retroverted and measures 8.5 x 5.4 x 4.9 cm. A fluid collection is present in the endometrial cavity which may represent a gestational sac. No definite pole is identified. The gestational sac and measures 1.6 x 0.8 x 2.4 cm for an estimated gestational age of 6 weeks and 3 days. There is a small area of hypoechogenicity measuring 5 x 4 mm outside of the gestational sac which may represent a subchorionic hemorrhage. The maternal right ovary has a volume of 8.5 mL. The maternal left ovary has a volume of 14.8 mL. Vascular flow is seen in both ovaries. No free fluid is visualized. There is a 2.1 x 1.7 x 1.4 complex cystic lesion in the left ovary which may represent a luteal cyst. IMPRESSION: No pole or cardiac activity is identified. There is an intrauterine fluid collection which may represent a gestational sac with an average gestational age by ultrasound of 6 weeks and 3 days. Close clinical follow-up and serial beta hCG levels may be considered. Interpreted by: Johnson Hills MD Signed by: Johnson Hills MD 10/18/20 Final result Normal [facility] US OB TRANSVAGINALon 05-16-2 021 US OB TRANSVAGINAL EXAMINATION: ULTRASO UND UTERUS, FIRST TRIMESTER REASON FOR EXAMINATION: Amenorrhea. 1 Para Miscarriage . Dates from LMP: 9 weeks 5 day. LMP: 08/10/2020 COTY(LMP): 05/17/2021 COMPARISONS: NONE FINDINGS: Transabdominal exam was performed. Transvaginal exam was performed to better visualize the uterine contents and adnexa. On the transabdominal exam, the uterus is retroverted and measures 8.5 x 5.4 x 4.9 cm. A fluid collection is present in the endometrial cavity which may represent a gestational sac. No definite pole is identified. The gestational sac and measures 1.6 x 0.8 x 2.4 cm for an estimated gestational age of 6 weeks and 3 days. There is a small area of hypoechogenicity measuring 5 x 4 mm outside of the gestational sac which may represent a subchorionic hemorrhage. The maternal right ovary has a volume of 8.5 mL. The maternal left ovary has a volume of 14.8 mL. Vascular flow is seen in both ovaries. No free fluid is visualized. There is a 2.1 x 1.7 x 1.4 complex cystic lesion in the left ovary which may represent a luteal cyst. IMPRESSION: No pole or cardiac activity is identified. There is an intrauterine fluid collection which may represent a gestational sac with an average gestational age by ultrasound of 6 weeks and 3 days. Close clinical follow-up and serial beta hCG levels may be considered. Interpreted by: Johnson Hills MD Signed by: Johnson Hills MD 10/18/20 Final result Normal [facility] Urinalysis, reflex to cultur chava 10-18-2020 Urine Reflexed to Culture Not Indicated Normal [facility] Comment on above: Performed By: #### U AR #### [facility] [address] [place] [address] Bilirubin Ql (U) Negative Normal Negative [facility] Comment on above: Performed By: #### U AR #### [facility] [address] [place] [address] Clarity (U) Clear Normal Clear [facility] Comment on above: Performed By: #### U AR #### [facility] [address] [place] [address] Color (U) DARK YELLOW Abnormal Straw/[place] [facility] Comment on above: Performed By: #### U AR #### [facility] [address] [place] [address] Glucose Ql (U) Negative Normal Negative [facility] Comment on above: Performed By: #### U AR #### [facility] [address] [place] [address] Hemoglobin Ql (U) LARGE Abnormal Negative [facility] Comment on above: Performed By: #### U AR #### [facility] [address] [place] [address] Ketones Ql (U) TRACE Abnormal Negative [facility] Comment on above: Performed By: #### U AR #### [facility] [address] [place] [address] Leukocyte esterase Test strip Ql (U) TRACE Abnormal Negative [facility] Comment on above: Performed By: #### U AR #### [facility] [address] [place] [address] Nitrite Ql (U) Negative Normal Negative [facility] Comment on above: Performed By: #### U AR #### [facility] [address] [place] [address] pH (U) 7.0 [pH] Normal 5.0-9.0 [facility] Comment on above: Performed By: #### U AR #### [facility] [address] [place] [address] Protein Ql (U) 30 mg/dL Abnormal Negative [facility] Comment on above: Performed By: #### U AR #### [facility] [address] [place] [address] Specific gravity (U) [Rel density] 1.030 Normal 1.005-1.03 [facility] Comment on above: Performed By: #### U AR #### [facility] [address] [place] [address] Urobilinogen Qn (U) 1.0 {Khoa'U}/dL Normal < 2.0 [facility] Comment on above: Performed By: #### U AR #### [facility] [address] [place] [address] Urine Microscopicon 10-19-19 21 Urine Bacteria FEW Abnormal Negative [facility] Comment on above: Performed By: #### U ANTHONY #### [facility] [address] [place] [address] Urine Epithelial Cells Auto 6-10 Normal 0-5 [facility] Comment on above: Performed By: #### U ANTHONY #### [facility] [address] [place] [address] Urine Hyaline Casts Auto 5-10 Normal 0-5 [facility] Comment on above: Performed By: #### U ANTHONY #### [facility] [address] [place] [address] Urine RBC Auto 20-50 Abnormal 0-5 [facility] Comment on above: Performed By: #### U ANTHONY #### [facility] [address] [place] [address] Urine WBC Auto 6-9 Abnormal 0-5 [facility] Comment on above: Performed By: #### U ANTHONY #### [facility] [address] [place] [address] HCG, Quantitative, Ordered By: Alexandre Casillas on 10-17-2020 hCG Quant 22300 mIU/mL [facility] Phone: Comment on above: Gestational Age Exp ected HCG values (mIU/ml) 3 weeks 5-72 4 weeks 10-708 5 weeks 217-8,245 6 weeks 152-32,177 8 weeks 31,366-149,094 12 weeks 27,107-201,615 16 weeks 8,904-55,332 18 weeks 9,649-55,271 [facility] Phone: Microscopic UrinalysisOrdere d By: Alexandre Casillas on 10-17-2020 Bacteria, UA FEW Abnormal Negative /HPF [employer] Work Phone: Epithelial Cells, UA 6-10 [employer] Work Phone: Hyaline Casts, UA 5-10 [facility] Work Phone: RBC, UA 20-50 Abnormal [facility] Phone: WBC, UA 6-9 Abnormal [facility] Phone: No Panel InformationOrdered By: Alexandre Casillas on 10-17-2020 Interpretation and review of laboratory results Abnormal [facility] Work Phone: [facility] [employer] Work Phone: POCT urine pregnancyOrdered By: Alexandre Casillas on 10-17-2020 Interpretation and review of laboratory results Normal [facility] [employer] Work Phone: Preg Test, Ur Positive [facility] Work Phone: QC OK? yes [facility] [employer] Work Phone: [facility] [employer] Work Phone: Urine Reflex to CultureOrder ed By: Alexandre Casillas on 10-17-2020 Bilirubin Urine Negative Negative [facility] Work Phone: Blood, Urine LARGE Abnormal Negative [facility] [employer] Work Phone: Clarity, UA Clear Clear [facility] [employer] Work Phone: Color, UA DARK YELLOW Abnormal Straw/Yellow [facility] Work Phone: Glucose, Ur Negative Negative mg/dL [facility] [employer] Work Phone: Ketones Ql (U) TRACE Abnormal Negative mg/dL [facility] [employer] Work Phone: Leukocyte esterase Test strip Ql (U) TRACE Abnormal Negative [facility] [employer] Work Phone: Nitrite, Urine Negative Negative [facility] Work Phone: pH, UA 7.0 [facility] [employer] Work Phone: Protein (U) [Mass/Vol] 30 mg/dL Abnormal Negative [facility] [employer] Work Phone: Specific [place], UA 1.030 [facility] [employer] Work Phone: Urine Reflex to Culture Not Indicated [facility] [employer] Work Phone: Urobilinogen, Urine 1.0 <2.0 E.U./dL [facility] [employer] Work Phone: Vital Signs Date Time Vital Sign Value Performing Clinician Facility 11-14-2024 11:25-0400 Body mass index (BMI) [Ratio] 28.69 kg/m2 Jennifer De La Torre MD Work Phone: [facility] 11-14-2024 11:25-0400 Body weight 78.2 kg Jennifer De La Torre MD Work Phone: [facility] 11-14-2024 11:25-0400 Diastolic blood pressure 72 mm[Hg] Jennifer De La Torre MD Work Phone: [facility] 11-14-2024 11:25-0400 Systolic blood pressure 110 mm[Hg] Jennifer De La Torre MD Work Phone: [facility] 11-12-2024 18:30-0400 Diastolic blood pressure 78 mm[Hg] Alycia Schwochow [employer] Work Phone: [facility] 11-12-2024 18:30-0400 Heart rate 84 /min Alycia Schwochow [employer] Work Phone: [facility] 11-12-2024 18:30-0400 Respiratory rate 16 /min Alycia Schwochow [employer] Work Phone: [facility] 11-12-2024 18:30-0400 SaO2% (BldA) [Mass fraction] 97 % Alycia Schwochow [employer] Work Phone: [facility] 11-12-2024 18:30-0400 Systolic blood pressure 126 mm[Hg] Alycia Schwochow [employer] Work Phone: [facility] 11-12-2024 16:01-0400 Body height 165.1 cm Alycia Schwochow [employer] Work Phone: [facility] 11-12-2024 16:01-0400 Body mass index (BMI) [Ratio] 27.96 kg/m2 Alycia Schwochow [employer] Work Phone: [facility] 11-12-2024 16:01-0400 Body temperature 98.4 [degF] Alycia Vicente [employer] Work Phone: [facility] 11-12-2024 16:01-0400 Body weight 76.2 kg Alycia Vicente [employer] Work Phone: [facility] 11-04-2024 15:07-0400 Body mass index (BMI) [Ratio] 28.06 kg/m2 Jennifer De La Torre MD Work Phone: [facility] 11-04-2024 15:07-0400 Body weight 76.48 kg Jennifer De La Torre MD Work Phone: [facility] 11-04-2024 15:07-0400 Diastolic blood pressure 64 mm[Hg] Jennifer De La Torre MD Work Phone: [facility] 11-04-2024 15:07-0400 Systolic blood pressure 102 mm[Hg] Jennifer De La Torre MD Work Phone: [facility] 10-21-2024 15:30-0400 Body mass index (BMI) [Ratio] 27.62 kg/m2 Jennifer De La Torre MD Work Phone: [facility] 10-21-2024 15:30-0400 Body weight 75.3 kg Jennifer De La Torre MD Work Phone: [facility] 10-21-2024 15:30-0400 Diastolic blood pressure 60 mm[Hg] Jennifer De La Torre MD Work Phone: [facility] 10-21-2024 15:30-0400 Systolic blood pressure 100 mm[Hg] Jennifer De La Torre MD Work Phone: [facility] 10-10-2024 10:52-0400 Body mass index (BMI) [Ratio] 27.12 kg/m2 Naren Bullard MD Work Phone: [facility] 10-10-2024 10:52-0400 Body weight 73.94 kg Naren Bullard MD Work Phone: [facility] 10-10-2024 10:52-0400 Diastolic blood pressure 58 mm[Hg] Naren Bullard MD Work Phone: [facility] 10-10-2024 10:52-0400 Heart rate 102 /min Naren Bullard MD Work Phone: [facility] 10-10-2024 10:52-0400 SaO2% (BldA) [Mass fraction] 97 % Naren Bullard MD Work Phone: [facility] 10-10-2024 10:52-0400 Systolic blood pressure 100 mm[Hg] Naren Bullard MD Work Phone: [facility] 10-06-2024 19:53-0400 Diastolic blood pressure 95 mm[Hg] Jose Lemjose elias DO Work Phone: [facility] 10-06-2024 19:53-0400 Heart rate 97 /min Jose Lemjose elias DO Work Phone: [facility] 10-06-2024 19:53-0400 Respiratory rate 18 /min Jose Lemjose elias DO Work Phone: [facility] 10-06-2024 19:53-0400 SaO2% (BldA) [Mass fraction] 94 % Jose Lemasters DO Work Phone: [facility] 10-06-2024 19:53-0400 Systolic blood pressure 149 mm[Hg] Jose Lemasters DO Work Phone: [facility] 10-06-2024 16:52-0400 Body height 165.1 cm Jose Lemasters DO Work Phone: [facility] 10-06-2024 16:52-0400 Body mass index (BMI) [Ratio] 27.29 kg/m2 Jose Lemasters DO Work Phone: [facility] 10-06-2024 16:52-0400 Body temperature 98.01 [degF] Jose Tr DO Work Phone: [facility] 10-06-2024 16:52-0400 Body weight 74.39 kg Jose Lemasters DO Work Phone: [facility] 09-23-2024 15:29-0400 Body mass index (BMI) [Ratio] 27.29 kg/m2 Tyrell Spencer MD Work Phone: [facility] 09-23-2024 15:29-0400 Body weight 74.39 kg Tyrell Spencer MD Work Phone: [facility] 09-23-2024 15:29-0400 Diastolic blood pressure 74 mm[Hg] Tyrell Spencer MD Work Phone: [facility] 09-23-2024 15:29-0400 Systolic blood pressure 112 mm[Hg] Tyrell Spencer MD Work Phone: [facility] 09-09-2024 14:31-0400 Body mass index (BMI) [Ratio] 27.29 kg/m2 Jennifer De La Torre MD Work Phone: [facility] 09-09-2024 14:31-0400 Body weight 74.39 kg Jennifer De La Torre MD Work Phone: [facility] 09-09-2024 14:31-0400 Diastolic blood pressure 70 mm[Hg] Jennifer De La Torre MD Work Phone: [facility] 09-09-2024 14:31-0400 Systolic blood pressure 110 mm[Hg] Jennifer De La Torre MD Work Phone: [facility] 08-12-2024 15:05-0400 Body mass index (BMI) [Ratio] 26.13 kg/m2 Tyrell Spencer MD Work Phone: [facility] 08-12-2024 15:05-0400 Body weight 71.22 kg Tyrell Spencer MD Work Phone: [facility] 08-12-2024 15:05-0400 Diastolic blood pressure 70 mm[Hg] Tyrell Spencer MD Work Phone: [facility] 08-12-2024 15:05-0400 Systolic blood pressure 118 mm[Hg] Tyrell Spencer MD Work Phone: [facility] 07-16-2024 14:15-0500 Body mass index (BMI) [Ratio] 25.63 kg/m2 Naren Bullard MD Work Phone: [facility] 07-16-2024 14:15-0500 Body weight 69.85 kg Naren Bullard MD Work Phone: [facility] 07-16-2024 14:15-0500 Diastolic blood pressure 64 mm[Hg] Naren Bullard MD Work Phone: [facility] 07-16-2024 14:15-0500 Systolic blood pressure 108 mm[Hg] Naren Bullard MD Work Phone: [facility] 06-10-2024 14:52-0500 Body height 165.1 cm Priscilla Jeffrey [employer].LOOM FIXER SUPERVISOR Work Phone: [facility] 06-10-2024 14:52-0500 Body mass index (BMI) [Ratio] 24.99 kg/m2 Priscilla Jeffrey [employer].LOOM FIXER SUPERVISOR Work Phone: [facility] 06-10-2024 14:52-0500 Body weight 68.13 kg Priscilla Armuchee [employer].LOOM FIXER SUPERVISOR Work Phone: [facility] 06-10-2024 14:52-0500 Diastolic blood pressure 74 mm[Hg] Priscilla Armuchee [employer].LOOM FIXER SUPERVISOR Work Phone: [facility] 06-10-2024 14:52-0500 Systolic blood pressure 126 mm[Hg] Priscilla Jeffrey [employer].LOOM FIXER SUPERVISOR Work Phone: [facility] 06-19-2023 15:45-0500 Body temperature 99.3 [degF] Buck Kahn MD Work Phone: [facility] 06-19-2023 15:45-0500 Diastolic blood pressure 76 mm[Hg] Buck Kahn MD Work Phone: [facility] 06-19-2023 15:45-0500 Heart rate 94 /min Buck Kahn MD Work Phone: [facility] 06-19-2023 15:45-0500 Respiratory rate 18 /min Buck Kahn MD Work Phone: [facility] 06-19-2023 15:45-0500 SaO2% (BldA) [Mass fraction] 96 % Buck Kahn MD Work Phone: [facility] 06-19-2023 15:45-0500 Systolic blood pressure 128 mm[Hg] Buck Kahn MD Work Phone: [facility] 06-15-2023 04:47-0500 Body temperature 37.0 Buck Kahn MD Work Phone: [facility] 06-15-2023 04:46-0500 Body temperature 37.0 Buck Kahn MD Work Phone: [facility] 06-15-2023 04:31-0500 Body temperature 37.0 degrees Celsius BUCK KAHN [facility] Comment on above: Order Comment: PRN per provider discreti on. Performed By: #### 2 [id number] #### FRANK TYLER ([id number]) [facility] ([facility]) [address] [place] [address] 06-13-2023 11:51-0500 Body height 167.6 cm Buck Kahn MD Work Phone: [facility] 06-13-2023 11:51-0500 Body mass index (BMI) [Ratio] 31.31 kg/m2 Buck Kahn MD Work Phone: [facility] 06-13-2023 11:51-0500 Body weight 88 kg Buck Kahn MD Work Phone: [facility] 06-08-2023 20:28-0500 Diastolic blood pressure 82 mm[Hg] Diya Jenkins DO Work Phone: [facility] 06-08-2023 20:28-0500 Heart rate 83 /min Diya Jenkins DO Work Phone: 5(114)954-227918 [place] [address] 06-08-2023 20:28-0500 SaO2% (BldA) [Mass fraction] 98 % Diya Jenkins DO Work Phone: 9(769)487-200518 [place] [address] 06-08-2023 20:28-0500 Systolic blood pressure 124 mm[Hg] Diya Jenkins DO Work Phone: 0(784)194-459545 [place] [address] 06-07-2023 17:49-0500 Diastolic blood pressure 75 mm[Hg] Bryan Us MD Work Phone: 0(042)261-65[address] [place] [address] 06-07-2023 17:49-0500 Heart rate 80 /min Bryan Us MD Work Phone: 7(102)757-866845 [place] [address] 06-07-2023 17:49-0500 Systolic blood pressure 133 mm[Hg] Bryan Us MD Work Phone: 5(889)139-154292 [place] [address] 06-07-2023 16:50-0500 Body mass index (BMI) [Ratio] 30.78 kg/m2 Bryan Us MD Work Phone: [facility] 06-07-2023 16:50-0500 Body temperature 98.6 [degF] Bryan Us MD Work Phone: 5(422)661-020018 [place] [address] 06-07-2023 16:50-0500 Body weight 86.5 kg Bryan Us MD Work Phone: 8(468)316-864118 [place] [address] 06-07-2023 16:48-0500 SaO2% (BldA) [Mass fraction] 97 % Bryan Us MD Work Phone: [facility] 01-13-2023 10:08-0400 Body height 167.64 cm No PCP None [facility] [id number] M DO Work Phone: 01-13-2023 10:08-0400 Body mass index (BMI) [Ratio] 25.2 kg/m2 No PCP None [facility] [id number] M DO Work Phone: 01-13-2023 10:08-0400 Body surface area Derived from formula 1.8 m2 No PCP None [facility] [id number] M DO Work Phone: 01-13-2023 10:08-0400 Body weight 70.82 kg No PCP None [facility] [id number] M DO Work Phone: 01-13-2023 10:08-0400 Diastolic blood pressure 70 mm[Hg] No PCP None [facility] [id number] M DO Work Phone: 01-13-2023 10:08-0400 Systolic blood pressure 120 mm[Hg] No PCP None [facility] [id number] M DO Work Phone: 01-13-2023 10:08-0400 75 1 No PCP None [facility] [id number] M DO Work Phone: Comment on above: 2-20_SPerc 01-13-2023 10:08-0400 85 1 No PCP None [facility] [id number] M DO Work Phone: Comment on above: 2-20_WPerc 01-13-2023 10:08-0400 80 1 No PCP None [facility] [id number] M DO Work Phone: Comment on above: BMIPerc 01-13-2023 10:08-0400 2 1 No PCP None [facility] [id number] M DO Work Phone: Comment on above: GRAV 01-13-2023 10:08-0400 0 1 No PCP None [facility] [id number] M DO Work Phone: Comment on above: [facility] [employer] 10-19-2020 00:21-0400 Body temperature 98.2 [degF] Alexandre Casillas MD Work Phone: [facility] Work Phone: 10-19-2020 00:21-0400 Diastolic blood pressure 74 mm[Hg] Alexandre Casillas MD Work Phone: [facility] Work Phone: 10-19-2020 00:21-0400 Heart rate 88 /min Alexandre Casillas MD Work Phone: [facility] Work Phone: 10-19-2020 00:21-0400 Respiratory rate 20 /min Alexandre Casillas MD Work Phone: [facility] Work Phone: 10-19-2020 00:21-0400 SaO2% (BldA) [Mass fraction] 99 % Alexandre Casillas MD Work Phone: [facility] Work Phone: 10-19-2020 00:21-0400 Systolic blood pressure 110 mm[Hg] Alexandre Casillas MD Work Phone: [facility] Work Phone: 10-18-2020 23:37-0400 Body height 167.6 cm Alexandre Casillas MD Work Phone: [facility] Work Phone: 10-18-2020 23:37-0400 Body mass index (BMI) [Ratio] 23.46 kg/m2 Alexandre Casillas MD Work Phone: [facility] Work Phone: 10-18-2020 23:37-0400 Body weight 65.94 kg Alexandre Casillas MD Work Phone: [facility] Work Phone: 10-18-2020 00:00-0400 Diastolic blood pressure 67 mm[Hg] Alexandre Casillas MD Work Phone: [facility] Work Phone: 10-18-2020 00:00-0400 Heart rate 86 /min Alexandre Casillas MD Work Phone: [facility] Work Phone: 10-18-2020 00:00-0400 SaO2% (BldA) [Mass fraction] 98 % Alexandre Casillas MD Work Phone: [facility] Work Phone: 10-18-2020 00:00-0400 Systolic blood pressure 112 mm[Hg] Alexandre Casillas MD Work Phone: [facility] Work Phone: 10-17-2020 22:00-0400 Respiratory rate 20 /min Alexandre Casillas MD Work Phone: [facility] Work Phone: 10-17-2020 21:52-0400 Body height 167.6 cm Alexandre Casillas MD Work Phone: [facility] Work Phone: 10-17-2020 21:52-0400 Body mass index (BMI) [Ratio] 23.4 kg/m2 Alexandre Casillas MD Work Phone: [facility] Work Phone: 10-17-2020 21:52-0400 Body temperature 98.2 [degF] Alexandre Casillas MD Work Phone: [facility] Work Phone: 10-17-2020 21:52-0400 Body weight 65.77 kg Alexandre Casillas MD Work Phone: [facility] Work Phone: Encounters Encounter Date Encounter Type Care Provider Facility Start: 11-18-2024 End: 11-18-2024 ambulatory [facility] Start: 11-18-2024 End: 11-18-2024 Patient encounter procedure [facility] [place] Comment on above: Population Health Na vigation Outreach ( to PCP/OB//) Start: 11-14-2024 End: 11-14-2024 ambulatory JENNIFER DE L ATORRE Facility:[facility] Start: 11-14-2024 End: 11-14-2024 Patient encounter procedure Jennifer De La Torre MD Work Phone: OB/Gynecology Comment on above: Supervision of high risk in third trimester (HCC) (Primary Dx); 37 weeks gestation of (HCC); Gallstones Start: 11-12-2024 End: 11-12-2024 Subsequent hospital visit by physician Vivek Ryan [facility] Comment on above: Arrived Start: 11-12-2024 End: 11-12-2024 Emergency department patient visit MITRA [facility] Start: 11-12-2024 End: 11-12-2024 Emergency department patient visit Alycia Vicente [employer] Work Phone: [facility] Comment on above: Rib pain on right si de (Primary Dx); 37 weeks gestation of (HHS-HCC); Calculus of gallbladder without cholecystitis without obstruction Start: 11-08-2024 End: 11-08-2024 Telephone encounter Anayeli Murry [employer] Work Phone: OB/Gynecology Comment on above: OB pain Start: 11-04-2024 End: 11-04-2024 Patient encounter procedure Jennifer De La Torre MD Work Phone: OB/Gynecology Comment on above: Supervision of high risk in third trimester (HCC) (Primary Dx); 36 weeks gestation of (HCC) Start: 11-04-2024 End: 11-04-2024 ambulatory JENNIFER DE LA TORRE Facility:[facility] Start: 10-21-2024 End: 10-21-2024 Patient encounter procedure Jennifer De La Torre MD Work Phone: OB/Gynecology Comment on above: Supervision of high risk in third trimester (HCC) (Primary Dx); 34 weeks gestation of (HCC); History of pre-eclampsia Start: 10-21-2024 End: 10-21-2024 ambulatory JENNIFER DE LA TORRE Facility:[facility] Start: 10-10-2024 End: 10-10-2024 Patient encounter procedure Naren Bulladr MD Work Phone: OB/Gynecology Comment on above: Anemia complicating , third trimester (HCC) (Primary Dx); 32 weeks gestation of (HCC); Supervision of high risk in third trimester (HCC); Pneumonia affecting in third trimester (HCC) Start: 10-10-2024 End: 10-15-2024 ambulatory Naren Bullard MD Work Phone: OB/Gynecology Comment on above: Ultrasound Start: 10-07-2024 End: 10-08-2024 Telephone encounter Jennifer De La Torre MD Work Phone: OB/Gynecology Comment on above: ED Follow-up Start: 10-06-2024 End: 10-06-2024 Emergency department patient visit Jose Damon DO Work Phone: [facility] Emergency Medicine Comment on above: Pneumonia of left lo wer lobe due to infectious organism (Primary Dx) Start: 10-06-2024 End: 10-06-2024 ambulatory Linda Thomason RN NURSE [employer] LOAN INTERVIEWER Comment on above: Shortness of Breath (Back pain//); Start: 10-03-2024 End: 10-03-2024 ambulatory No Primary Care Physician Facility:[facility] Start: 10-03-2024 End: 10-03-2024 Emergency department patient visit No Primary Care Physician Facility:[facility] Start: 09-23-2024 End: 09-23-2024 Patient encounter procedure Tyrell Spencer MD Work Phone: OB/Gynecology Comment on above: 30 weeks gestation o f (HCC) (Primary Dx); Late care (HCC); Supervision of high risk in third trimester (HCC) Start: 09-23-2024 End: 09-23-2024 ambulatory TYRELL SPENCER Facility:[facility] Start: 09-09-2024 End: 09-09-2024 Patient encounter procedure Jennifer De La Torre MD Work Phone: OB/Gynecology Comment on above: Supervision of high risk , antepartum (HCC) (Primary Dx); 28 weeks gestation of (HCC); Need for vaccination Start: 09-09-2024 End: 09-09-2024 ambulatory TYRELL SPENCER Facility:[facility] Start: 09-09-2024 End: 11-09-2024 Follow-up encounter Agnieszka Georges APRN.LOOM FIXER SUPERVISOR Work Phone: OB/Gynecology Start: 09-06-2024 End: 09-06-2024 ambulatory Priscilla Murphy APRN.LOOM FIXER SUPERVISOR Work Phone: OB/Gynecology Comment on above: Leg Pain Start: 08-12-2024 End: 08-12-2024 ambulatory TYRELL SPENCER Facility:[facility] Start: 08-12-2024 End: 08-12-2024 Patient encounter procedure Tyrell Spencer MD Work Phone: OB/Gynecology Comment on above: 24 weeks gestation o f (Primary Dx); Screening for diabetes mellitus; Supervision of high risk , antepartum; Need for influenza vaccination Start: 07-30-2024 End: 07-30-2024 ambulatory [facility] Facility:[facility] Start: 07-30-2024 End: 07-30-2024 Patient encounter procedure Whi Tech 1 Licensed Clinical Social Worker [facility] Comment on above: Encounter for anatomic survey (Primary Dx); 22 weeks gestation of Start: 07-18-2024 End: 07-18-2024 Emergency department patient visit No Primary Care Physician Facility:[facility] Start: 07-18-2024 End: 07-18-2024 ambulatory JENNIFER [facility] Facility:[facility] Start: 07-18-2024 End: 07-18-2024 Patient encounter procedure Margo Bullard APRN.LOOM FIXER SUPERVISOR Work Phone: [facility] Comment on above: Bilateral calf pain (Primary Dx) Start: 07-16-2024 End: 07-16-2024 ambulatory NAREN BULLARD Facility:[facility] Start: 07-16-2024 End: 07-16-2024 Patient encounter procedure Naren Bullard MD Work Phone: OB/Gynecology Comment on above: Supervision of high risk , antepartum (Primary Dx); Late care affecting in second trimester; Short interval between pregnancies complicating , antepartum; Hx of pre-eclampsia in prior , currently ; 20 weeks gestation of Start: 06-10-2024 End: 06-10-2024 ambulatory PRISCILLA MURPHY Facility:[facility] Start: 06-10-2024 End: 06-10-2024 Patient encounter procedure Priscilla Murphy APRN.LOOM FIXER SUPERVISOR Work Phone: OB/Gynecology Comment on above: 15 weeks gestation o f (Primary Dx); Late care affecting in second trimester; Short interval between pregnancies complicating , antepartum; Hx of pre-eclampsia in prior , currently ; Supervision of high risk , antepartum Start: 10-25-2023 Patient encounter procedure Jose Velazquezjose elias DO Work Phone: [facility] Work Phone: Start: 07-11-2023 End: 07-11-2023 ambulatory [facility] Ambulatory Start: 06-13-2023 End: 06-19-2023 Evaluation and management of inpatient Buck Kahn MD Work Phone: [facility] 5 Comment on above: Preeclampsia, third trimester (Primary Dx); Anemia of mother in , delivered with condition; Encounter for initial prescription of contraceptive pills Start: 06-09-2023 End: 06-09-2023 ambulatory [facility] Ambulatory Start: 06-08-2023 End: 06-08-2023 ambulatory DIYA Regalado [facility] Start: 06-08-2023 End: 06-08-2023 Subsequent hospital visit by physician Diya Jenkins DO Work Phone: [facility] Start: 06-07-2023 End: 06-07-2023 ambulatory ELSA Cabrera [facility] Ambulatory Start: 06-07-2023 End: 06-07-2023 Subsequent hospital visit by physician Bryan Us MD Work Phone: [facility] Comment on above: Proteinuria affectin g in third trimester (Primary Dx); Elevated blood pressure reading in office without diagnosis of hypertension Start: 05-30-2023 End: 05-30-2023 ambulatory [facility] Ambulatory Start: 05-18-2023 ambulatory [facility] Ambulatory Start: 05-11-2023 End: 05-11-2023 Emergency department patient visit VIDA FRAIRE [facility] Start: 05-02-2023 End: 05-02-2023 ambulatory [facility] Ambulatory Start: 04-19-2023 End: 04-19-2023 ambulatory [facility] Ambulatory Start: 01-14-2023 Chart Update No PCP None [facility] M DO Work Phone: Start: 01-13-2023 Office outpatient ne w 45 minutes No PCP None [facility] [id number] M DO Work Phone: Start: 12-19-2022 End: 12-22-2022 ambulatory CORTNEY Cabrera [facility] Start: 12-19-2022 End: 12-21-2022 Subsequent hospital visit by physician Alcala Ultrasound Room 1 [facility] Ultrasound Comment on above: Early stage of pregn isaac Start: 10-19-2020 End: 10-19-2020 Subsequent hospital visit by physician [facility] Comment on above: Threatened miscarria ge in early Start: 10-19-2020 End: 10-19-2020 Emergency department patient visit ALEXANDRE CASILLAS [facility] Start: 10-18-2020 End: 10-19-2020 Emergency department patient visit Alexandre Casillas MD Work Phone: [facility] ED Comment on above: Vaginal bleeding (Pr imary Dx); Threatened miscarriage Start: 10-17-2020 End: 10-18-2020 Emergency department patient visit CORTNEY Cabrera [facility] Start: 10-17-2020 End: 10-18-2020 Emergency department patient visit Alexandre Casillas MD Work Phone: [facility] ED Comment on above: Vaginal bleeding (Pr imary Dx); Intrauterine Patient encounter status No PCP None [facility] [id number] M DO Work Phone: Procedures Date Procedure Procedure Detail Performing Clinician Start: 11-14-2024 Urnls dip stick/tabl et rgnt non-auto w/o micrscp Jennifer De La Torre MD Work Phone: Start: 11-12-2024 Ecg routine ecg w/le ast 12 lds trcg only w/o i&r Mitra Hastings YONNY Work Phone: Start: 11-12-2024 Ct angiography chest w/contrast/noncontrast Mitra Hastings YONNY Work Phone: Start: 11-12-2024 End: 11-12-2024 Comprehensive metabolic panel Mitra Hastings YONNY Work Phone: Start: 11-12-2024 Troponin I.cardiac p radha - Serum or Plasma by High sensitivity method Mitra Hastings YONNY Work Phone: Start: 11-04-2024 Urnls dip stick/tabl et rgnt non-auto w/o micrscp Jennifer De La Torre MD Work Phone: Start: 10-21-2024 Urnls dip stick/tabl et rgnt non-auto w/o micrscp Jennifer De La Torre MD Work Phone: Start: 10-06-2024 Ecg routine ecg w/le ast 12 lds trcg only w/o i&r Jose Damon DO Work Phone: Start: 10-06-2024 Ct angiography chest w/contrast/noncontrast Jose Damon DO Work Phone: Start: 10-06-2024 Radiologic exam ches t single view Jose Damon DO Work Phone: Start: 10-06-2024 Influenza virus A an d B RNA [Identifier] in Unspecified specimen by ISAK with probe detection Jose Damon DO Work Phone: Start: 10-06-2024 SARS-CoV-2 (COVID-19 ) RNA [Presence] in Respiratory specimen by ISAK with probe detection Jose Damon DO Work Phone: Start: 10-06-2024 Comprehensive metabo lic panel Jose Damon DO Work Phone: Start: 07-30-2024 Us preg uterus after 1st trimest 1 gestation Priscilla Murphy APRN.LOOM FIXER SUPERVISOR Work Phone: Start: 06-10-2024 Antibody screen JENNIFER KENDALL Comment on above: Order Comment: Speci men Type: BLOOD SPECIMEN Ordering Facility: [facility] Address: [address] [place] [address] Performed By: #### T SPN #### [facility] [place] [id number] [address] [place] [address] [place] Start: 06-19-2023 ADULT DISCHARGE DIET MADELIN KAHN Start: 06-19-2023 DISCHARGE ACTIVITY LUCIANA KAHN Start: 06-19-2023 FOLLOW UP WITH PROVIDER BUCK KAHN Start: 06-19-2023 DISCHARGE INSTRUCTIONS BUCK KAHN Start: 06-19-2023 NOTIFY PROVIDER (DO NOT PROMPT FOR PARAMETERS) BUCK KAHN Start: 06-19-2023 DISCHARGE PATIENT BUCK KAHN Start: 06-15-2023 TRANSFER PATIENT TO NEW UNIT BUCK KAHN Start: 06-15-2023 INSERT STRAIGHT CATH ETER PRN BUCK KAHN Start: 06-15-2023 CBC ANEMIA PANEL WIT H REFLEX, BUCK KAHN Start: 06-15-2023 CBC panel - Blood by Automated count BUCK KAHN Start: 06-15-2023 FERRITIN, RUDOLPH KAHN Start: 06-15-2023 FOLATE, BUCK KAHN Start: 06-15-2023 IRON + TIBC T JUANMAGDA MILE Start: 06-15-2023 REFLEX ADDED, ANEMIA PANEL BUCK KAHN Start: 06-15-2023 VITAMIN B12, BUCK KAHN Start: 06-15-2023 Blood count complete automated Breann Sears MD Work Phone: Start: 06-15-2023 CBC panel - Blood by Automated count Breann Sears MD Work Phone: Start: 06-15-2023 REFLEX ADDED, ANEMIA PANEL Breann Sears MD Work Phone: Start: 06-15-2023 SURGICAL PATHOLOGY EXAM BUCK KAHN Start: 06-15-2023 TRANSFER PATIENT TO NEW UNIT BUCK KAHN Start: 06-15-2023 BLOOD GAS CORD ARTERIAL BUCK KAHN Start: 06-15-2023 BLOOD GAS CORD VENOUS T BENJI KAHN Start: 06-15-2023 Gases blood ph direc t kortney xcpt pulse oximitry Song Landaverde MD Work Phone: Start: 06-14-2023 LEFT LATERAL RECUMBE NT POSITION BUCK KAHN Start: 06-14-2023 VITAL SIGNS BUCK KAHN Start: 06-14-2023 CBC panel - Blood by Automated count BUCK KAHN Start: 06-14-2023 Comprehensive metabo lic 2000 panel - Serum or Plasma BUCK KAHN Start: 06-14-2023 SYPHILIS SCREENING W ITH REFLEX BUCK KAHN Start: 06-14-2023 TYPE AND SCREEN BUCK K DEEJAY Start: 06-14-2023 FULL CODE BUCK KAHN Start: 06-14-2023 TRANSFER PATIENT TO NEW UNIT BUCK KAHN Start: 06-14-2023 Blood typing serolog ic rh (d) Song Landaverde MD Work Phone: Start: 06-14-2023 Comprehensive metabo lic panel Song Landaverde MD Work Phone: Start: 06-13-2023 GROUP B STREPTOCOCCU S (GBS) SCREEN, CULTURE BUCK KAHN Start: 06-13-2023 TYPE AND SCREEN BUCK K DEEJAY Start: 06-13-2023 ADMIT TO L\T\D BUCK GREEN Start: 06-13-2023 REASON FOR NO DVT PROPHYLAXIS - HOSPITAL ADMISSION - MEDICATIONS BUCK KAHN Start: 06-13-2023 Cul prsmptv pthgnc o rganism scrn w/colony estimj Vanessa Hilliard MD Work Phone: Start: 06-13-2023 Blood typing serolog ic rh (d) Vanessa Hilliard MD Work Phone: Start: 06-13-2023 CBC W Auto Different ial panel - Blood BUCK MILE Start: 06-13-2023 Comprehensive metabo lic 1999 panel - Serum or Plasma BUCK MILE Start: 06-13-2023 Lactate dehydrogenas e [Enzymatic activity/volume] in Serum or Plasma BUCK MILE Start: 06-13-2023 MICROSCOPIC ONLY, URINE BUCKMAGDA AGUDELOZ Start: 06-13-2023 PROTEIN, URINE RANDOM T JUANMAGDA MILE Start: 06-13-2023 URINALYSIS WITH REFL EX MICROSCOPIC BUCK KAHN Start: 06-13-2023 Comprehensive metabo lic panel Vanessa Hilliard MD Work Phone: Start: 06-13-2023 Urinalysis microscop ic panel - Urine Qualitative by Automated Vanessa Hilliard MD Work Phone: Start: 06-13-2023 Urnls dip stick/tabl et reagent auto microscopy Vanessa Hilliard MD Work Phone: Start: 06-07-2023 CBC panel - Blood by Automated count BUCK KAHN Start: 06-07-2023 Comprehensive metabo lic 2000 panel - Serum or Plasma BUCK MILE Start: 06-07-2023 PROTEIN, URINE RANDOM T JUANMAGDA AGUDELOZ Start: 06-07-2023 ADULT DIET BUCKMAGDA AGUDELOZ Start: 06-07-2023 VITAL SIGNS BUCK KAHN Start: 06-07-2023 nonstress test MADELIN PIÑA KAHN Start: 06-07-2023 Comprehensive metabo lic panel Paty Hernandez APRN-SUSU Work Phone: Start: 04-19-2023 CBC ANEMIA PANEL WIT H REFLEX, ALYCIA SCHWROLA Start: 04-19-2023 CBC panel - Blood by Automated count ALYCIA VICENTE Start: 04-19-2023 GLUCOSE, 1 HOUR SCRE EN, ALYCIA SCHWROLA Start: 04-19-2023 REFLEX ADDED, ANEMIA PANEL ALYCIA TRAVIS Start: 04-19-2023 TDAP VACCINE GREATER THAN OR EQUAL TO 7YO IM ALYCIA VICENTE Start: 12-19-2022 Us uterus 1 4 wk transabdl 06/05 gestat Hina Winter [employer] [facility] Work Phone: Start: 10-19-2020 Gonadotropin chorion ic quantitative Hina Hassancecy [employer] CN Work Phone: Start: 10-17-2020 End: 10-17-2020 Urine test visual color cmprsn meths Alexandre Casillas MD Work Phone: Start: 10-17-2020 Gonadotropin chorion ic quantitative Alexandre Casillas MD Work Phone: Start: 10-17-2020 Urinalysis microscopic only Alexandre Casillas MD Work Phone: Adenoidectomy withou t tonsillectomy No PCP None Myringotomy - With Ventilating Tube Insertion No PCP None Plan of Treatment Date Care Activity Detail Author Start: 08-04-2078 RSV High Risk: (Elde rly (60+) or Population) (1 - 1-dose 75+ series) RSV High Risk: (Elderly (60+) or Population) (1 - 1-dose 75+ series) [facility] Start: 08-04-2053 Zoster Vaccines (1 of 2) Zoste r Vaccines (1 of 2) [facility] Start: 09-09-2034 DTaP/Tdap/Td Vaccine s (9 - Td or Tdap) DTaP/Tdap/Td Vaccines (9 - Td or Tdap) [facility] Start: 09-09-2034 Urine microalbumin profile DTaP,Tdap,Td Vaccine (9 - Td or Tdap) [facility] Start: 04-19-2033 DTaP/Tdap/Td Vaccine s (8 - Td or Tdap) DTaP/Tdap/Td Vaccines (8 - Td or Tdap) [facility] Start: 04-19-2033 Urine microalbumin profile DTaP,Tdap,Td Vaccine (8 - Td or Tdap) [facility] Start: 01-24-2026 DTaP/Tdap/Td vaccine (7 - Td or Tdap) DTaP/Tdap/Td vaccine (7 - Td or Tdap) [facility] Start: 08-12-2025 Covid-19 Vaccine (1 - 2024-25 season) Covid-19 Vaccine ( season) [facility] Comment on above: Postponed from 02/03 (Declined at this time) Start: 06-10-2025 GC (Gonorrhea) Scree neelima (18-24) GC (Gonorrhea) Screening (18-24) [facility] Start: 06-10-2025 Screening for Chlamy karla trachomatis Chlamydia Screening (18-24) [facility] Start: 02-03-2025 Influenza vaccination Influenz a Vaccine (Season Ended) [facility] Start: 11-25-2024 End: 11-25-2024 Patient encounter procedure 11/25/2024 3:15 PM EDT Routine Office Visit OB/Gynecology [address] [place] [address] Anayeli Murry APRN.[facility] [address] [place] [address] OB OB/Gynecology Comment on above: OB Start: 11-18-2024 End: 11-18-2024 Patient encounter procedure 11/18/2024 3:10 PM EDT Routine Office Visit OB/Gynecology [address] [place] [address] Tyrell Spencer MD [address] [place] [address] OB OB/Gynecology Comment on above: OB Start: 11-14-2024 End: 11-14-2024 Patient encounter procedure 11/14/2024 11:20 AM EDT Routine Office Visit OB/Gynecology [address] [place] [address] Jennifer De La Torre MD [address] [place] [address] OB OB/Gynecology Comment on above: OB Start: 11-04-2024 End: 11-04-2024 Patient encounter procedure 11/04/2024 3:10 PM EDT Routine Office Visit OB/Gynecology [address] [place] [address] Jennifer De La Torre MD [address] [place] [address] OB OB/Gynecology Comment on above: OB Start: 10-21-2024 End: 10-21-2024 Patient encounter procedure OB/Gynecology Comment on above: NA OB Start: 10-14-2024 End: 10-14-2024 Patient encounter procedure 10/14/2024 2:30 PM EDT Routine Office Visit OB/Gynecology [address] [place] [address] Anayeli Murry APRN.CNM [address] [place] [address] OB OB/Gynecology Comment on above: OB Start: 10-11-2024 End: 10-11-2024 Patient encounter procedure 10/11/2024 8:45 AM EDT Routine Office Visit OB/Gynecology [address] [place] [address] Agnieszka Georges APRN.[employer] [address] [place] [address] Pneumonia OB/Gynecology Comment on above: Pneumonia Start: 10-10-2024 End: 01-09-2025 CBC panel - Blood by Automated count COMPLETE BLOOD COUNT Lab Routine Anemia complicating , third trimester (HCC) Expected: 10/10/2024, Expires: 01/09/2025 [facility] Work Phone: Comment on above: Expected: 10/10/2024 , Expires: 01/09/2025 Start: 10-10-2024 End: 01-09-2025 Ferritin [Mass/volume] in Serum or Plasma FERRITIN Lab Routine Anemia complicating , third trimester (HCC) Expected: 10/10/2024, Expires: 01/09/2025 [facility] Comment on above: Expected: 10/10/2024 , Expires: 01/09/2025 Start: 10-10-2024 End: 01-09-2025 Iron and Iron binding capacity panel - Serum or Plasma IRON AND TIBC Lab Routine Anemia complicating , third trimester (HCC) Expected: 10/10/2024, Expires: 01/09/2025 [facility] Comment on above: Expected: 10/10/2024 , Expires: 01/09/2025 Start: 10-10-2024 End: 10-10-2024 Patient encounter procedure 10/10/2024 1:30 PM EDT Routine Office Visit OB/Gynecology [address] [place] [address] Jennifer De La Torre MD [address] [place] [address] NA OB/Gynecology Comment on above: NA Start: 09-23-2024 End: 09-23-2024 Patient encounter procedure 09/23/2024 3:40 PM EDT Routine Office Visit OB/Gynecology [address] [place] [address] Tyrell Spencer MD [address] [place] [address] OB OB/Gynecology Comment on above: OB Start: 09-09-2024 End: 09-09-2024 Patient encounter procedure 09/09/2024 2:40 PM EDT Routine Office Visit OB/Gynecology [address] [place] [address] Jennifer De La Torre MD [address] [place] [address] OB Routine OB/Gynecology Comment on above: OB Routine Start: 09-09-2024 End: 09-09-2024 ambulatory [facility] Comment on above: Glucose test and Lab s Start: 08-12-2024 End: 08-12-2024 Patient encounter procedure 08/12/2024 3:10 PM EDT Routine Office Visit OB/Gynecology [address] [place] [address] Tyrell Spencer MD [address] [place] [address] OB Routine OB/Gynecology Comment on above: OB Routine Start: 08-12-2024 End: 11-11-2024 ANEMIA REFLEX PANEL ANEMIA REFLEX PANEL Lab Routine 24 weeks gestation of Screening for diabetes mellitus Expected: 08/12/2024, Expires: 11/11/2024 [facility] Comment on above: Expected: 08/12/2024 , Expires: 11/11/2024 Start: 08-12-2024 End: 08-12-2025 GESTATIONAL GLUCOSE SCREEN, 1-HOUR, 50 GRAM, NON-FASTING GESTATIONAL GLUCOSE SCREEN, 1-HOUR, 50 GRAM, NON-FASTING Lab Routine 24 weeks gestation of Screening for diabetes mellitus Expected: 08/12/2024, Expires: 08/12/2025 [facility] Work Phone: Comment on above: Expected: 08/12/2024 , Expires: 08/12/2025 Start: 08-12-2024 End: 08-12-2025 SYPHILIS TREPONEMAL W/REFLEX SYPHILIS TREPONEMAL W/REFLEX Lab Routine 24 weeks gestation of Screening for diabetes mellitus Expected: 08/12/2024, Expires: 08/12/2025 [facility] Comment on above: Expected: 08/12/2024 , Expires: 08/12/2025 Start: 08-04-2024 Screening for malign ant neoplasm of cervix [facility] Start: 07-30-2024 End: 07-30-2024 Patient encounter procedure 07/30/2024 8:30 AM EST Routine Office Visit Maternal Medicine [address] [place] [address] 15 weeks gestation of [Z3A.15] [facility] Comment on above: 15 weeks gestation o f [Z3A.15] Start: 07-16-2024 End: 07-16-2024 Patient encounter procedure 07/16/2024 2:20 PM EST Routine Office Visit OB/Gynecology [address] [place] [address] Naren Bullard MD [address] [place] [address] new Ob 02/26/24 OB/Gynecology Comment on above: new Ob 02/26/24 Start: 07-08-2024 End: 07-08-2024 Patient encounter procedure [facility] Comment on above: Anatomy Scan OB Routine Start: 06-10-2024 End: 09-09-2024 ANEMIA REFLEX PANEL [facility] Work Phone: Comment on above: Expected: 06/10/2024 , Expires: 09/09/2024 Start: 06-10-2024 End: 09-09-2024 Hemoglobin A1c in Blood [facility] Comment on above: Expected: 06/10/2024 , Expires: 09/09/2024 Start: 06-10-2024 End: 09-09-2024 Hepatitis B virus surface Ag [Presence] in Serum HEPATITIS B SURFACE ANTIGEN Lab Routine 15 weeks gestation of Expected: 06/10/2024, Expires: 09/09/2024 [facility] Comment on above: Expected: 06/10/2024 , Expires: 09/09/2024 Start: 06-10-2024 End: 09-09-2024 Hepatitis C virus Ab [Presence] in Serum [facility] Comment on above: Expected: 06/10/2024 , Expires: 09/09/2024 Start: 06-10-2024 End: 09-09-2024 HIV 1+2 Ab [Presence] in Serum or Plasma by Immunoassay [facility] Comment on above: Expected: 06/10/2024 , Expires: 09/09/2024 Start: 06-10-2024 End: 06-10-2025 OBSTETRIC ULTRASOUND WHI OBSTETRIC ULTRASOUND WHI Anc Imaging Routine 15 weeks gestation of Expected: 06/10/2024, Expires: 06/10/2025 [facility] Comment on above: Expected: 06/10/2024 , Expires: 06/10/2025 Start: 06-10-2024 End: 09-09-2024 RUBELLA IGG ANTIBODY [facility] Comment on above: Expected: 06/10/2024 , Expires: 09/09/2024 Start: 06-10-2024 End: 09-09-2024 SYPHILIS TREPONEMAL W/REFLEX [facility] Comment on above: Expected: 06/10/2024 , Expires: 09/09/2024 Start: 06-10-2024 End: 09-09-2024 TYPE + SCREEN [facility] Comment on above: Expected: 06/10/2024 , Expires: 09/09/2024 Start: 02-04-2024 Covid-19 Vaccine () Covid-19 Vaccine () [facility] Start: 02-04-2024 Influenza vaccination Influenza Vacc ine (#1) [facility] Start: 01-14-2024 Screening for Chlamy karla trachomatis Chlamydia and Gonorrhea Screening [facility] Start: 12-09-2023 Screening for Chlamy karla trachomatis Chlamydia/GC screen [facility] Start: 11-09-2023 Depression Screen Depression Screen [facility] Start: 07-11-2023 End: 07-11-2023 Patient encounter procedure 07/11/2023 9:00 AM EST Routine [address] [address] Alycia Vicente, [employer] [employer] [address] Department [place] [place] [address] [facility] Start: 07-04-2023 End: 07-04-2023 Patient encounter procedure 07/04/2023 9:40 AM EST Routine [id number] [place] [address] Alycia Vicente, [employer] [employer] [place] [address] Department [place] [place] [address] [facility] Start: 06-13-2023 End: 06-13-2023 Patient encounter procedure 06/13/2023 3:00 PM EST Routine [id number] [place] [address] Alycia Vicente, [employer] [place] [address] [facility] Department [place] [place] [address] [facility] Start: 06-09-2023 End: 06-09-2023 Patient encounter procedure 06/09/2023 8:00 AM EST Routine [facility] [address] [facility] [place] [address] Alycia Vicente, [employer] [address] Department [place] [place] [address] [facility] Start: 03-14-2023 EPVOB, Provider: Alycia Vicente, Status: Pen, Time: 1:40 PM EPVOB, Provider: Alycia Vicente, Status: Pen, Time: 1:40 PM [facility] [address] M DO Work Phone: Start: 02-14-2023 EPVOB, Provider: Vanna Wilder, Status: Pen, Time: 11:20 AM EPVOB, Provider: Vanna Wilder, Status: Pen, Time: 11:20 AM [facility] [address] M DO Work Phone: Start: 02-03-2023 Influenza vaccination Influenza Vacc ine (#1) [facility] Start: 01-03-2023 Influenza vaccination Flu vaccine (# 1) [facility] Start: 08-04-2021 Anxiety Screening Anxiety Screening [facility] Start: 08-04-2021 Depression Screening Depression Scre ening [facility] Start: 08-04-2021 GC (Gonorrhea) Scree neelima (18-24) GC (Gonorrhea) Screening (18-24) [facility] Start: 08-04-2021 Hepatitis C screening Hepatitis C sc reen [facility] Start: 08-04-2021 HIV screening HIV Screening [facility] Start: 08-04-2021 Screening for Chlamy karla trachomatis Chlamydia Screening (18-24) [facility] Start: 02-03-2021 Influenza vaccination Flu vacc ine (Season Ended) [facility] Phone: Start: 10-22-2020 End: 10-22-2020 Patient encounter procedure 10/22/2020 Office Visit Obstetrics and Gynecology Hina Winter, [employer] [facility] [address] [place], [place] [id number] [facility] Obstetrics and Gynecology Start: 2019 Meningococcal (ACWY) vaccine (1 - 2-dose series) Meningococcal (ACWY) vaccine (1 - 2-dose series) [facility] Phone: Start: 2019 Meningococcal B Vacc ine (1 of 2 - Standard) Meningococcal B Vaccine (1 of 2 - Standard) [facility] Start: 2019 Meningococcal B Vacc ine: Consider Based On Risk (1 of 2 - Patient Seeks Protection) Meningococcal B Vaccine: Consider Based On Risk (1 of 2 - Patient Seeks Protection) [facility] Start: 2019 Screening for Chlamy karla trachomatis Chlamydia screen [facility] Phone: Start: 08-04-2018 HIV screening HIV screen TRACEY ALBARADO [facility] Start: 08-04-2018 HPV Vaccine (1 - 3-d ose series) HPV Vaccine (1 - 3-dose series) [facility] Start: 08-04-2018 HPV Vaccines (1 - 3- dose series) HPV Vaccines (1 - 3-dose series) [facility] Start: 08-04-2017 Peds To Adult Transi tion Annual Assessment Peds To Adult Transition Annual Assessment [facility] Start: 2015 COVID-19 Vaccine (1) COVID-19 Vaccin e (1) [facility] Phone: Start: 2015 Peds To Adult Transi tion Initial Discussion Peds To Adult Transition Initial Discussion [facility] Start: 08-04-2014 HPV vaccine (1 - 2-d ose series) HPV vaccine (1 - 2-dose series) [facility] [employer] Start: 08-04-2014 HPV Vaccines (1 - 2- dose series) HPV Vaccines (1 - 2-dose series) [facility] Start: 08-04-2010 DTaP/Tdap/Td vaccine (5 - Tdap) DTaP/Tdap/Td vaccine (5 - Tdap) [facility] Phone: Start: 2007 Hearing Screening (#1) Hearing Scree neelima (#1) [facility] Start: 2007 Measles,Mumps,Rubell a (MMR) vaccine (2 of 2 - Standard series) Measles,Mumps,Rubella (MMR) vaccine (2 of 2 - Standard series) [facility] Phone: Start: 2007 Polio vaccine (4 of 4 - 4-dose series) Polio vaccine (4 of 4 - 4-dose series) [facility] Phone: Start: 2007 Varicella vaccine (2 of 2 - 2-dose childhood series) Varicella vaccine (2 of 2 - 2-dose childhood series) [facility] Phone: Start: 08-04-2006 Well Child Visit (WC V) - Annual Well Child Visit (WCV) - Annual [facility] Start: 08-04-2004 Hepatitis A vaccine (1 of 2 - 2-dose series) Hepatitis A vaccine (1 of 2 - 2-dose series) [facility] Phone: Start: 04-06-2004 Application of denta l fluoride varnish Fluoride Varnish [facility] Start: 02-05-2004 COVID-19 Vaccine (#1) COVID-19 Vacci ne (#1) [facility] [employer] [facility] Start: 2003 Hearing Screening (#1) Hearing Scree neelima (#1) [facility] Start: 2003 Lipid panel Lipid Panel [facility] Start: 2003 Yearly Adult Physical Yearly Adult P hysical [facility] Bacteria identified in Urine by Culture URINE CULTURE Microbiology Routine 15 weeks gestation of 06/10/2024 3:36 PM [facility] Chlamydia trachomatis+Neisseria gonorrhoeae DNA [Presence] in Unspecified specimen by ISAK with probe detection GONORRHEA/CHLAMYDIA NAAT Lab Routine 15 weeks gestation of 06/10/2024 3:36 PM [facility] ECG 12 lead ECG 12 lead ECG STAT 10/06/2024 7:[address] [facility] Service Area Work Phone: End: 11-12-2024 ECG 12 Lead [facility] Work Phone: Comment on above: Once for 1 Occurrenc es starting 11/12/2024 until 11/12/2024 Electrocardiogram, 12-lead PRN ACS symptoms Electrocardiogram, 12-lead PRN ACS symptoms ECG Routine As needed until discontinued starting 06/07/2023 [facility] Work Phone: Comment on above: As needed until disc ontinued starting 06/07/2023 Electrocardiogram, 12-lead PRN ACS symptoms Electrocardiogram, 12-lead PRN ACS symptoms ECG Routine As needed until discontinued starting 06/15/2023 [facility] Work Phone: Comment on above: As needed until disc ontinued starting 06/15/2023 Gas panel - Arterial cord blood Blood Gas Cord Arterial Lab Routine As needed (Lab) until discontinued starting 06/18/2023 [facility] Work Phone: Comment on above: As needed (Lab) unti l discontinued starting 06/18/2023 Gas panel - Venous c ord blood Blood Gas Cord Venous Lab Routine As needed (Lab) until discontinued starting 06/18/2023 [facility] Work Phone: Comment on above: As needed (Lab) unti l discontinued starting 06/18/2023 Iiv3 vaccine split v irus 0.5 ml dosage im use INFLUENZA VACCINE, AGE 6MO-64YR, TRIVALENT (AFLURIA, FLULAVAL, FLUVIRIN, FLUZONE) Immunization/Injection Routine Need for influenza vaccination Ordered: 08/12/2024 [facility] Comment on above: Ordered: 08/12/2024 End: 10-17-2020 Insert/Change Meredith Catheter Insert/Change Meredith Catheter Procedure STAT One Time for 1 Occurrences starting 10/17/2020 until 10/17/2020 [facility] Work Phone: Comment on above: One Time for 1 Occur rences starting 10/17/2020 until 10/17/2020 End: 06-07-2023 Nonstress test nonstress test (>= 23 weeks) Procedures Routine Once for 1 Occurrences starting 06/07/2023 until 06/07/[address] [facility] Service Area Work Phone: Comment on above: Once for 1 Occurrenc es starting 06/07/2023 until 06/07/2023 End: 06-14-2023 Prepare RBC: 1 Units Prepare RBC: 1 Units Blood Bank Routine Once for 1 Occurrences starting 06/14/2023 until 06/14/2023 [facility] Area Work Phone: Comment on above: Once for 1 Occurrenc es starting 06/14/2023 until 06/14/2023 End: 11-12-2024 Pulse oximetry, continuous Pulse oximetry, continuous Respiratory Care STAT Continuous until discontinued starting 11/12/2024 [facility] Area Work Phone: Comment on above: Continuous until dis continued starting 11/12/2024 ROUTINE, GR OUP B STREPTOCOCCUS BY PCR ROUTINE, GROUP B STREPTOCOCCUS BY PCR Microbiology Routine 36 weeks gestation of ([facility]) Supervision of high risk in third trimester ([facility]) 11/04/2024 3:23 PM EDT [facility] Work Phone: End: 06-15-2023 Surgical pathology study [facility] Work Phone: Comment on above: Once (Lab) for 1 Occ urrences starting 06/15/2023 until 06/15/2023, 1 completed End: 10-19-2020 Type and screen Type and screen Blood Bank Routine Threatened miscarriage in early 1 Occurrences starting 10/19/2020 until 10/19/2020 [facility] Work Phone: Comment on above: 1 Occurrences starti ng 10/19/2020 until 10/19/2020 URINE OB DIP B/O URINE OB DIP B/ O Lab Routine 30 weeks gestation of ([facility]) Late care ([facility]) Supervision of high risk in third trimester ([facility]) Ordered: 09/23/2024 [facility] Work Phone: Comment on above: Ordered: 09/23/2024 End: 10-17-2020 US OB LESS THAN 14 WEEKS SINGLE OR FIRST GESTATION US OB LESS THAN 14 WEEKS SINGLE OR FIRST GESTATION Imaging STAT Once for 1 Occurrences starting 10/17/2020 until 10/17/2020 [facility] Work Phone: Comment on above: Once for 1 Occurrenc es starting 10/17/2020 until 10/17/2020 US OB LESS THAN 14 W EEKS SINGLE OR FIRST GESTATION US OB LESS THAN 14 WEEKS SINGLE OR FIRST GESTATION Imaging STAT 10/17/2020 11:41 PM EDT [facility] Work Phone: End: 10-17-2020 US OB TRANSVAGINAL US OB TRANSVAGINAL Imaging STAT Once for 1 Occurrences starting 10/17/2020 until 10/17/2020 [facility] Work Phone: Comment on above: Once for 1 Occurrenc es starting 10/17/2020 until 10/17/2020 US OB TRANSVAGINAL US OB TRANSVA GINAL Imaging STAT 10/17/2020 11:41 PM EDT [facility] Work Phone: Immunizations Immunization Date Immunization Notes Care Provider Fa [facility] 09-09-2024 tetanus toxoid, redu justin diphtheria toxoid, and acellular pertussis vaccine, adsorbed Jennifer De La Torre MD Work Phone: [facility] 06-15-2023 measles, mumps and rubella virus vaccine Buck Kahn MD Work Phone: [facility] Work Phone: 04-19-2023 tetanus toxoid, redu justin diphtheria toxoid, and acellular pertussis vaccine, adsorbed Bryan Us MD Work Phone: [facility] Work Phone: 08-22-2016 meningococcal polysaccharide (groups A, C, Y and W-135) diphtheria toxoid conjugate vaccine (MCV4P); Translations: [Meningo (Menactra)] [facility] Comment on above: Series: 01-25-2016 tetanus toxoid, redu justin diphtheria toxoid, and acellular pertussis vaccine, adsorbed; Translations: [Tdap (Adacel)] [facility] Comment on above: Series: 11-17-2010 hepatitis A vaccine, pediatric/adolescent dosage, 2 dose schedule Fredrick 1 [facility] 01-14-2009 diphtheria, tetanus toxoids and acellular pertussis vaccine, unspecified formulation Fredrick 1 [facility] 01-14-2009 hepatitis A vaccine, unspecified formulation Fredrick 1 [facility] 01-14-2009 measles, mumps and rubella virus vaccine Fredrick 1 [facility] 01-14-2009 poliovirus vaccine, inactivated Jose Lemasters DO Work Phone: [facility] Work Phone: 01-14-2009 poliovirus vaccine, unspecified formulation Fredrick 1 [facility] 01-14-2009 varicella virus vaccine Fredrick 1 [facility] Work Phone: 11-04-2004 diphtheria, tetanus toxoids and acellular pertussis vaccine Alexandre Casillas MD Work Phone: [facility] Work Phone: 11-04-2004 diphtheria, tetanus toxoids and acellular pertussis vaccine, 5 pertussis antigens Fredrick 1 [facility] 11-04-2004 haemophilus influenz ae type b vaccine, HbOC conjugate Priscilla Murphy APRN.CNP Work Phone: [facility] 11-04-2004 haemophilus influenz ae type b vaccine, PRP-T conjugate Fredrick 1 [facility] 11-04-2004 Hib, unspecified Alexandre pinto MD Work Phone: [facility] Work Phone: 11-04-2004 pneumococcal conjuga te vaccine, 7 valent Alexandre Casillas MD Work Phone: [facility] Work Phone: 08-03-2004 measles, mumps and rubella virus vaccine Alexandre Casillas MD Work Phone: [facility] Work Phone: 08-03-2004 varicella virus vaccine Ruddy Casillas MD Work Phone: [facility] Work Phone: 02-17-2004 diphtheria, tetanus toxoids and acellular pertussis vaccine Alexandre Casillas MD Work Phone: [facility] Work Phone: 02-17-2004 diphtheria, tetanus toxoids and acellular pertussis vaccine, unspecified formulation Fredrick 1 [facility] 02-17-2004 haemophilus influenz ae type b vaccine, conjugate unspecified formulation Fredrick 1 [facility] 02-17-2004 haemophilus influenz ae type b vaccine, HbOC conjugate Priscilla Murphy APRN.[facility] Work Phone: [facility] 02-17-2004 hepatitis B vaccine, adult dosage Fredrick 1 [facility] 02-17-2004 hepatitis B vaccine, pediatric or pediatric/adolescent dosage Fredrick 1 [facility] 02-17-2004 hepatitis B vaccine, unspecified formulation Alexandre Casillas MD Work Phone: [facility] Work Phone: 02-17-2004 Hib, unspecified Alexandre pinto MD Work Phone: [facility] Work Phone: 02-17-2004 pneumococcal conjuga te vaccine, 7 valent Alexandre Casillas MD Work Phone: [facility] Work Phone: 02-17-2004 poliovirus vaccine, inactivated Alexandre Casillas MD Work Phone: [facility] Work Phone: 02-17-2004 poliovirus vaccine, unspecified formulation Fredrick 1 [facility] 2003 diphtheria, tetanus toxoids and acellular pertussis vaccine Alexandre Casillas MD Work Phone: [facility] Work Phone: 2003 diphtheria, tetanus toxoids and acellular pertussis vaccine, unspecified formulation Fredrick 1 [facility] 2003 haemophilus influenz ae type b vaccine, conjugate unspecified formulation Fredrick 1 [facility] 2003 haemophilus influenz ae type b vaccine, HbOC conjugate Priscilla Jeffrey [employer] SUPER[employer] Work Phone: [facility] 2003 Hib, unspecified Alexandre pinto MD Work Phone: [facility] Work Phone: 2003 pneumococcal conjuga te vaccine, 7 valent Alexandre Casillas MD Work Phone: [facility] Work Phone: 2003 poliovirus vaccine, inactivated Alexandre Casillas MD Work Phone: [facility] Work Phone: 2003 poliovirus vaccine, unspecified formulation Fredrick 1 [facility] 2003 diphtheria, tetanus toxoids and acellular pertussis vaccine Alexandre Casillas MD Work Phone: [facility] Work Phone: 2003 diphtheria, tetanus toxoids and acellular pertussis vaccine, unspecified formulation Fredrick 1 [facility] 2003 haemophilus influenz ae type b vaccine, conjugate unspecified formulation Fredrick 1 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 Work Phone: [facility] 2003 hepatitis B vaccine, adult dosage Fredrick 1 [facility] 2003 hepatitis B vaccine, pediatric or pediatric/adolescent dosage Fredrick 1 [facility] 2003 hepatitis B vaccine, unspecified formulation Alexandre Casillas MD Work Phone: [facility] Work Phone: 2003 Hib, unspecified Alexandre pinto MD Work Phone: [facility] [employer] Work Phone: 2003 pneumococcal conjuga te vaccine, 7 valent Alexandre Casillas MD Work Phone: [facility] [employer] Work Phone: 2003 poliovirus vaccine, inactivated Alexandre Casillas MD Work Phone: [facility] Work Phone: 2003 poliovirus vaccine, unspecified formulation Fredrick 1 [facility] 2003 hepatitis B vaccine, adult dosage Fredrick 1 [facility] 2003 hepatitis B vaccine, pediatric or pediatric/adolescent dosage Fredrick 1 [employer] [facility] 2003 hepatitis B vaccine, unspecified formulation Alexandre Casillas MD Work Phone: [facility] [employer] Work Phone: diphtheria, tetanus toxoids and acellular pertussis vaccine No PCP None [facility] [facility] [id number] M DO Work Phone: Comment on above: 03 Series: 03 Series: 02/17/04 Series: 11/04/04 Series: 01/14/09 Series: haemophilus influenz ae type b vaccine, PRP-OMP conjugate No PCP None [facility] [id number] M DO Work Phone: Comment on above: 03 Series: 03 Series: 02/17/04 Series: 11/04/04 Series: hepatitis A vaccine, pediatric/adolescent dosage, 2 dose schedule No PCP None [facility] [id number] M DO Work Phone: Comment on above: 01/14/09 Series: 11/17/10 Series: hepatitis B vaccine, pediatric or pediatric/adolescent dosage No PCP None [facility] [id number] M DO Work Phone: Comment on above: 03 Series: 03 Series: 02/17/04 Series: measles, mumps and rubella virus vaccine No PCP None [facility] [id number] M DO Work Phone: Comment on above: 08/03/04 Series: 01/14/09 Series: pneumococcal conjuga te vaccine, 7 valent No PCP None [facility] [id number] M DO Work Phone: Comment on above: 03 Series: 03 Series: 02/17/04 Series: 11/04/04 Series: poliovirus vaccine, inactivated No PCP None [facility] [id number] M DO Work Phone: Comment on above: 03 Series: 03 Series: 02/17/04 Series: 01/14/09 Series: varicella virus vaccine No PCP None [facility] [id number] M DO Work Phone: Comment on above: 08/03/04 Series: 01/14/09 Series: NEGATED: Highlighted row has not occurred!08-12-2024 influenza, seasonal, injectable Tyrell Spencer MD Work Phone: [facility] Comment on above: Deferred: Patient Re fused Payers Date Payer Category Payer Self-pay 2023 Medicaid [id number] 2022 Medicaid [id number] 2022 Managed Care (Private) [facility] [id number] 2022 Private Health Insurance [id number] 2018 Private Health Insurance [id number]. [id number] 2003 Unknown [id number] 2.16.840.1.994610.3.579.2. 185 2003 Unknown [id number] 2.16.840.1.260199.3.579.2. 185 2003 Unknown [id number] 2.16.840.1.649471.3.579.2. 1243 2003 Unknown [id number] 2.16.840.1.142113.3.579.2. 1243 2003 Unknown [id number] 2.16.840.1.056963.3.579.2. 1243 2003 Unknown [id number] 2.16.840.1.342637.3.579.2. 4 2003 Unknown [id number] 2.16.840.1.409162.3.579.2. 1243 2003 Unknown [id number] 2.16.840.1.945394.3.579.2. 1243 2003 Unknown [id number] 2.16.840.1.098844.3.579.2. 1243 2003 Unknown [id number] 2.16.840.1.021580.3.579.2. 1244 2003 Unknown [id number] 2.16.840.1.336765.3.579.2. 1244 2003 Unknown [id number] 2.16.840.1.722936.3.579.2. 1245 2003 Unknown [id number] 2.16.840.1.332909.3.579.2. 1243 2003 Unknown [id number] 2.16.840.1.797735.3.579.2. 1243 2003 Unknown [id number] 2.16.840.1.223857.3.579.2. 1243 1974 Unknown [id number] 2.16.840.1.017071.3.579.2. 182 1974 Unknown [id number] 2.16.840.1.208114.3.579.2. 182 Unknown Unknown [id number] 2.16.840.1.694206.3.579.2. 462 Unknown [id number] 2.16.840.1.793407.3.579.2. 462 Unknown [id number] 2.16.840.1.743245.3.579.2. 462 Social History Date Type Detail Facility Start: 10-17-2020 End: 06-07-2024 Tobacco smoking status [facility] Never smoker [facility] [employer] Start: 10-17-2020 End: 06-07-2024 Tobacco use and exposure Never used [facility] Start: 10-17-2020 End: 11-12-2024 Alcohol intake Lifetime non-drinker (finding) [facility] Phone: Start: 05-07-2019 End: 11-08-2022 History SDOH Alcohol Frequency 1 [facility] Phone: Start: 09-30-2020 End: 11-08-2022 History SDOH Financial 5 [facility] Phone: Start: 09-30-2020 End: 11-08-2022 History SDOH Transport Med 2 [facility] Phone: Start: 2003 Sex Assigned At Not on file [facility] Phone: Exposure to SARS-CoV -2 (event) Yes [facility] Start: 05-28-2023 End: 11-12-2024 Exposure to SARS-CoV-2 (event) Not sure [facility] Start: 10-20-2022 [facility] Start: 06-07-2023 End: 06-10-2024 Lives with parents Lives with parents [facility] Start: 06-07-2023 End: 06-10-2024 Alcohol Use Disorder Identification Test - Consumption [AUDIT-C] [facility] How often to you hav e a drink containing alcohol? Never [facility] How many standard dr inks containing alcohol do you have on a typical day? Patient does not drink [facility] Work Phone: History of tobacco use Passive smoker [facility] Start: 06-10-2024 End: 11-14-2024 Alcoholic beverage intake Current non-drinker of alcohol (finding) [facility] Start: 06-07-2024 Education 21 [facility] Start: 2003 Sex assigned at Female [facility] Start: 06-07-2024 Gender identity Identifies as female gender (finding) [facility] Start: 06-07-2024 Sexual orientation Heterosexual (finding) [facility] Goals Date Patient Goal Desired Activity /State Personal health goal Functional Status Date Assessment Result Facility 11-12-2024 [place] - suicide s everity rating scale screener - recent [C-SSRS] [facility] Work Phone: 10-06-2024 [place] - suicide s everity rating scale screener - recent [C-SSRS] [facility] Work Phone: Clinical Notes 06-07-2023 to 11-18-2024 Betzy Gunter - 11/18/2024 8:46 AM EDTPrenatal Quick Notes - Jennifer De La Torre MD - 11/14/2024 11:50 AM EDTPrenatal Quick Notes - Jennifer De La Torre MD - 11/14/2024 11:50 AM EDTPatient Instructions Note Date & Type Note Facility 11-18-2024 History of Present illness Narrative POPULATION HEALTH NAVIGATION OUTREACH Action/FYI Left message to add chip tester to OB provider field, My chart sent Reason for Outreach Medicaid OB/Peds Care Gaps due: N/A Patient Contacted: Unable or unnecessary to reach patient: Unable to reach patient Left message MyChart message sent Navigation Signature: Betzy Gunter, Population Health Navigator November 18, 2024 8:47 AM documented in this encounter [facility] 11-14-2024 Progress note Formatting of t his note might be different from the original. SW- RUQ pain off and on. No fevers, chills, vomiting, severe pain. No ctx, vb, lof. Good FM. Recently went to ER for RUQ pain. Diagnosed with gallstones PE: Gen- NAD, well appearing Abd- Soft, gravid, NT See flowsheet A/p 37 wk gestation - Gallstones: Discussed reasons to go in to be evaluated fevers, chills, severe pain, N/V. Otherwise discussed dietary changes and follow up with general surgery - H/o pre e: BP normal and cont LDA - Labor precautions reviewed - RTO 1 wk Jennifer De La Torre DO [facility] 11-14-2024 Miscellaneous Notes SW- RUQ pain off and on. No fevers, chills, vomiting, severe pain. No ctx, vb, lof. Good FM. Recently went to ER for RUQ pain. Diagnosed with gallstones PE: Gen- NAD, well appearing Abd- Soft, gravid, NT See flowsheet A/p 37 wk gestation - Gallstones: Discussed reasons to go in to be evaluated fevers, chills, severe pain, N/V. Otherwise discussed dietary changes and follow up with general surgery - H/o pre e: BP normal and cont LDA - Labor precautions reviewed - RTO 1 wk Jennifer De La Torre DO documented in this encounter [facility] 11-14-2024 Instructions Vanna Birmingham MA - 11/14/2024 11:21 AM EDT SEQUENTIAL SCREENINGS The [facility] offers sequential screenings for women who are interested in screenings for chromosomal abnormalities and certain defects during a . The sequential screen combines ultrasound and blood tests to determine the risk of chromosomal abnormalities, including Down's Syndrome (Trisomy 21) and Trisomy 18, as well as open neural tube defects including spina bifida. Ultrasound examination is performed between 11 weeks and 13 weeks gestational age. Blood tests are drawn after the ultrasound and again later in the between 15 and 21 weeks gestational age. Please let your physician know if you are interested in this testing. It will require an appointment with our science technician. This is not an ultrasound performed by a physician in our office during a routine visit. SIGNS AND SYMPTOMS OF LABOR 1. Contractions every 10 minutes or more often 2. Clear, pink, or brownish fluid (water) leaking from vagina 3. Feeling that baby is pushing down, pressure 4. Low, dull backache 5. Cramps that feel like a period 6. Cramps with or without diarrhea If you notice any of the above symptoms, contact our office at [phone] and ask to speak with a nurse. After hours, you can call doctors registry at [phone] OR call [facility] at [phone] and ask to have the doctor sanitation inspector paged. If you consider this an emergency, dial [phone] or go to your nearest emergency department. NEED HELP? Are you dealing with a violent or abusive relationship? Are you a victim of rape or sexual assult? Call [facility] ([facility] 24 hour Crisis Hotline: 426.365.3758 or 992-044-1182. MANUAL Your Guide to a Healthy manual is now on-line. Visit [email or web address] to download your free copy documented in this encounter [facility] 11-08-2024 Telephone encounter Note Patient called back in and was notified. States she has tried heating pad and tylenol. Tylenol doesn't help as much, but the heating pad does. She will try with stretching over the weekend follow up next week at her scheduled appointment. She will call if needed for sooner visit. Janet Coe RN [facility] 11-08-2024 Miscellaneous Notes Patient called back in and was notified. States she has tried heating pad and tylenol. Tylenol doesn't help as much, but the heating pad does. She will try with stretching over the weekend follow up next week at her scheduled appointment. She will call if needed for sooner visit. Janet Coe RN Attempted to call patient. Unable to leave message because mailbox is full. Awareness Card message sent. Janet Coe RN Agree that this could be positioning or musculoskeletal. Try heating pad to area- taking Tylenol 1000 mg by mouth for pain and try YOGA/ STRETCHING. Anayeli Murry APRN.CNM 36w4d Patient called in c/o right rib pain still. She first noticed it over 2 weeks, but she had pneumonia at the time so she thought it was related to that. Pneumonia has clear. She has no coughing, shortness of breath or fever, but this right rib pain has gotten a little worse today. When she pushes on the area it helps relieve the pain some. Movement makes it worse typically. Does not get worse with breathing/deep breath. Last OB visit 11/04 with SW - she did not bring it up at that visit though. She thought it could be related to position, but baby has been more on left side she thinks lately. Please advise. Janet Coe RN documented in this encounter [facility] 11-08-2024 Telephone encounter Note Attempted to call patient. Unable to leave message because mailbox is full. Mychart message sent. Janet Coe RN [facility] 11-08-2024 Telephone encounter Note Agree that this could be positioning or musculoskeletal. Try heating pad to area- taking Tylenol 1000 mg by mouth for pain and try YOGA/ STRETCHING. Anayeli Murry APRN.CNM [facility] Work Phone: 11-08-2024 Telephone encounter Note 36w4d Patient called in c/o right rib pain still. She first noticed it over 2 weeks, but she had pneumonia at the time so she thought it was related to that. Pneumonia has clear. She has no coughing, shortness of breath or fever, but this right rib pain has gotten a little worse today. When she pushes on the area it helps relieve the pain some. Movement makes it worse typically. Does not get worse with breathing/deep breath. Last OB visit 11/04 with SW - she did not bring it up at that visit though. She thought it could be related to position, but baby has been more on left side she thinks lately. Please advise. Janet Coe RN [facility] 11-04-2024 Progress note Formatting of t his note might be different from the original. SW- Pt doing well. No MART, vision changes, pain, vb, lof. Good FM PE: Gen- NAD, well appearing Abd- Soft, gravid, NT See flowsheet A/p 36 wk gestation - GBS today - Vertex on bedside US - RTO 1 wk Jennifer De La Torre DO [facility] 11-04-2024 Miscellaneous Notes SW- Pt doing well. No MART, vision changes, pain, vb, lof. Good FM PE: Gen- NAD, well appearing Abd- Soft, gravid, NT See flowsheet A/p 36 wk gestation - GBS today - Vertex on bedside US - RTO 1 wk Jennifer De La Torre DO documented in this encounter [facility] 11-04-2024 Instructions Vanna Birmingham MA - 11/04/2024 3:01 PM EDT SEQUENTIAL SCREENINGS The [facility] offers sequential screenings for women who are interested in screenings for chromosomal abnormalities and certain defects during a . The sequential screen combines ultrasound and blood tests to determine the risk of chromosomal abnormalities, including Down's Syndrome (Trisomy 21) and Trisomy 18, as well as open neural tube defects including spina bifida. Ultrasound examination is performed between 11 weeks and 13 weeks gestational age. Blood tests are drawn after the ultrasound and again later in the between 15 and 21 weeks gestational age. Please let your physician know if you are interested in this testing. It will require an appointment with our science technician. This is not an ultrasound performed by a physician in our office during a routine visit. SIGNS AND SYMPTOMS OF LABOR 1. Contractions every 10 minutes or more often 2. Clear, pink, or brownish fluid (water) leaking from vagina 3. Feeling that baby is pushing down, pressure 4. Low, dull backache 5. Cramps that feel like a period 6. Cramps with or without diarrhea If you notice any of the above symptoms, contact our office at [phone] and ask to speak with a nurse. After hours, you can call doctors registry at [phone] OR call [facility] at [phone] and ask to have the doctor sanitation inspector paged. If you consider this an emergency, dial 9--1 or go to your nearest emergency department. NEED HELP? Are you dealing with a violent or abusive relationship? Are you a victim of rape or sexual assult? Call [facility] ([place]) 24 hour Crisis Hotline: 431.824.4717 or 343-668-7597. MANUAL Your Guide to a Healthy manual is now on-line. Visit [email or web address] to download your free copy documented in this encounter [facility] 10-21-2024 Progress note Formatting of t his note might be different from the original. SW- No pain, vb, lof. Good FM. Taking oral iron three days a week PE: Gen- NAD, well appearing Abd- Soft, NT, gravid See flowsheet A/p 34 wk gestation - Anemia: Cont oral iron and have labs drawn as ordered by KJ - H/o pre e: Check BP at home. Discussed reasons to call - RTO 2 wks Jennifer De La Torre DO [facility] 10-21-2024 Miscellaneous Notes SW- No pain, vb, lof. Good FM. Taking oral iron three days a week PE: Gen- NAD, well appearing Abd- Soft, NT, gravid See flowsheet A/p 34 wk gestation - Anemia: Cont oral iron and have labs drawn as ordered by KJ - H/o pre e: Check BP at home. Discussed reasons to call - RTO 2 wks Jennifer De La Torre DO documented in this encounter [facility] 10-21-2024 Instructions Vanna Birmingham MA - 10/21/2024 3:26 PM EDT SEQUENTIAL SCREENINGS The [facility] offers sequential screenings for women who are interested in screenings for chromosomal abnormalities and certain defects during a . The sequential screen combines ultrasound and blood tests to determine the risk of chromosomal abnormalities, including Down's Syndrome (Trisomy 21) and Trisomy 18, as well as open neural tube defects including spina bifida. Ultrasound examination is performed between 11 weeks and 13 weeks gestational age. Blood tests are drawn after the ultrasound and again later in the between 15 and 21 weeks gestational age. Please let your physician know if you are interested in this testing. It will require an appointment with our science technician. This is not an ultrasound performed by a physician in our office during a routine visit. SIGNS AND SYMPTOMS OF LABOR 1. Contractions every 10 minutes or more often 2. Clear, pink, or brownish fluid (water) leaking from vagina 3. Feeling that baby is pushing down, pressure 4. Low, dull backache 5. Cramps that feel like a period 6. Cramps with or without diarrhea If you notice any of the above symptoms, contact our office at [phone] and ask to speak with a nurse. After hours, you can call doctors registry at [phone] OR call [facility] at [phone] and ask to have the doctor sanitation inspector paged. If you consider this an emergency, dial 9-1-9 or go to your nearest emergency department. NEED HELP? Are you dealing with a violent or abusive relationship? Are you a victim of rape or sexual assult? Call [facility] ([place]) 24 hour Crisis Hotline: 653.224.2934 or 284-060-9177. MANUAL Your Guide to a Healthy manual is now on-line. Visit [email or web address] to download your free copy documented in this encounter [facility] 10-15-2024 Telephone encounter Note Again no further US. Can discuss at next visit. Naren Bullard MD [facility] 10-15-2024 Miscellaneous Notes Again no further US. Can discuss at next visit. Naren Bullard MD Correct. No additional US needed. Naren Bullard MD She doesn't need another formal u/s at this point, right? Janet Coe RN documented in this encounter [facility] 10-10-2024 Telephone encounter Note Correct. No additional US needed. Naren Bullard MD [facility] 10-10-2024 Telephone encounter Note She doesn't need another formal u/s at this point, right? Janet Coe RN [facility] 10-10-2024 Progress note Formatting of t his note might be different from the original. KJ - S: Maryana denies LOF, contractions or vaginal bleeding. She is feeling much better. O: 32w3d, see flow sheet SENSITIVE EXAM: Sensitive exam not performed. A/P: Assessment & Plan Anemia complicating , third trimester (HCC) Orders: COMPLETE BLOOD COUNT; Future IRON AND TIBC; Future FERRITIN; Future 32 weeks gestation of (HCC) Supervision of high risk in third trimester (HCC) Pneumonia affecting in third trimester (HCC) Continue augmentin Reviewed PTL & FM precautions Naren Bullard MD [facility] 10-10-2024 Miscellaneous Notes KJ - S: Maryana denies LOF, contractions or vaginal bleeding. She is feeling much better. O: 32w3d, see flow sheet SENSITIVE EXAM: Sensitive exam not performed. A/P: Assessment & Plan Anemia complicating , third trimester (HCC) Orders: COMPLETE BLOOD COUNT; Future IRON AND TIBC; Future FERRITIN; Future 32 weeks gestation of (HCC) Supervision of high risk in third trimester (HCC) Pneumonia affecting in third trimester (HCC) Continue augmentin Reviewed PTL & FM precautions Naren Bullard MD documented in this encounter [facility] 10-10-2024 Instructions Arina Sanchez MA - 10/10/2024 10:50 AM EDT SEQUENTIAL SCREENINGS The [facility] offers sequential screenings for women who are interested in screenings for chromosomal abnormalities and certain defects during a . The sequential screen combines ultrasound and blood tests to determine the risk of chromosomal abnormalities, including Down's Syndrome (Trisomy 21) and Trisomy 18, as well as open neural tube defects including spina bifida. Ultrasound examination is performed between 11 weeks and 13 weeks gestational age. Blood tests are drawn after the ultrasound and again later in the between 15 and 21 weeks gestational age. Please let your physician know if you are interested in this testing. It will require an appointment with our science technician. This is not an ultrasound performed by a physician in our office during a routine visit. SIGNS AND SYMPTOMS OF LABOR 1. Contractions every 10 minutes or more often 2. Clear, pink, or brownish fluid (water) leaking from vagina 3. Feeling that baby is pushing down, pressure 4. Low, dull backache 5. Cramps that feel like a period 6. Cramps with or without diarrhea If you notice any of the above symptoms, contact our office at [phone] and ask to speak with a nurse. After hours, you can call doctors registry at [phone] OR call [facility] at [phone] and ask to have the doctor sanitation inspector paged. If you consider this an emergency, dial 9-1-0 or go to your nearest emergency department. NEED HELP? Are you dealing with a violent or abusive relationship? Are you a victim of rape or sexual assult? Call [facility] ([place]) 24 hour Crisis Hotline: 361.754.2407 or 726-290-9881. MANUAL Your Guide to a Healthy manual is now on-line. Visit [email or web address] to download your free copy documented in this encounter [facility] 10-07-2024 Telephone encounter Note Thank you, would recommend keeping appointment this week and please make an appointment note to see this phone encounter thanks [facility] Work Phone: 10-07-2024 Miscellaneous Notes Thank you, would recommend keeping appointment this week and please make an appointment note to see this phone encounter thanks Pt called in to change appt on 10/10/24 as it did not fit her schedule. Stating she went to [facility] 3 days ago, then to [facility] ER 10/06. States dx Pneumonia and given IV antibiotics. States she is feeling improvement with the shortness of breath and denies at this time. 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 Advised to continue to push fluids, continue to monitor movement, and take antibiotics as advised. Rescheduled OB appt from 10/10/24 to 10/14/24 d/t patient availability. However, last OB appt was 09/23/24. Does Pt need seen sooner than 10/14/24? Please advise. Michelle Lemus RN 32w0d Updated Care Everywhere. Patient was seen at [facility]. See notes available in Epic now. Dx: Pneumonia of left lower lobe due to infectious organism. Patient has an upcoming OB visit on 10/10. Do we need to move up her appointment or do you have further instructions before we call patient? Sanjuana Caceres RN Please check in on patient this morning and get an update from ER visit thanks ALICE documented in this encounter [facility] 10-07-2024 Telephone encounter Note Pt called in to change appt on 10/10/24 as it did not fit her schedule. Stating she went to [facility] 3 days ago, then to [facility] ER 10/06. States dx Pneumonia and given IV antibiotics. States she is feeling improvement with the shortness of breath and denies at this time. 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 Advised to continue to push fluids, continue to monitor movement, and take antibiotics as advised. Rescheduled OB appt from 10/10/24 to 10/14/24 d/t patient availability. However, last OB appt was 09/23/24. Does Pt need seen sooner than 10/14/24? Please advise. Michelle Lemus RN [facility] 10-07-2024 Telephone encounter Note 32w0d Updated Care Everywhere. Patient was seen at [facility] ER. See notes available in Epic now. Dx: Pneumonia of left lower lobe due to infectious organism. Patient has an upcoming OB visit on 10/10. Do we need to move up her appointment or do you have further instructions before we call patient? Sanjuana Caceres RN [facility] 10-07-2024 Telephone encounter Note Please check in on patient this morning and get an update from ER visit thanks SW [facility] 10-06-2024 Physician Emergency department Note Emergency Medicine Transition of Care Note. I received Maryana William in signout from Dr. Damon. Please see the previous ED provider note for all HPI, PE and MDM up to the time of signout at 1900. This is in addition to the primary record. Go over all the results with the patient. Patient has a left lower lobe pneumonia. We will treat her here with 1 g of ceftriaxone and she will be discharged. Have instructed her to call her sample examiner in the morning and if she has any worsening of symptoms she is to return to ED. Patient on discharge is not hypoxic or tachypneic. In brief Maryana William is an 19 y.o. female presenting for Chief Complaint Patient presents with Shortness of Breath C/o SOB intermittently since yesterday, lasts about 5-6 minutes. Also c/o right sided CP for the last few days At the time of signout we were awaiting: CT Diagnoses as of 10/06/241930 Pneumonia of left lower lobe due to infectious organism CT angio chest for pulmonary embolism Final Result 1. Consolidation at the base of the left lower lobe concerning for infectious or inflammatory pneumonitis. 2. No evidence for pulmonary embolus. Signed by Kyle Perez MD XR chest 1 view Final Result Ill-defined opacity at the left lung base favored to represent atelectasis or developing pneumonia. MACRO: None. Signed by: Arsenio Roy 10/06/2024 5:34 PM Dictation workstation: [id number] Labs Reviewed CBC WITH AUTO DIFFERENTIAL - Abnormal Result Value WBC 12.9 (*) nRBC 0.0 RBC 3.61 (*) Hemoglobin 9.8 (*) Hematocrit 29.7 (*) MCV 82 MCH 27.1 MCHC 33.0 RDW 12.3 Platelets 417 Neutrophils % 73.3 Immature Granulocytes %, Automated 0.8 Lymphocytes % 18.3 Monocytes % 6.4 Eosinophils % 0.9 Basophils % 0.3 Neutrophils Absolute 9.46 (*) Immature Granulocytes Absolute, Automated 0.10 Lymphocytes Absolute 2.36 Monocytes Absolute 0.83 Eosinophils Absolute 0.11 Basophils Absolute 0.04 COMPREHENSIVE METABOLIC PANEL - Abnormal Glucose 89 Sodium 134 (*) Potassium 3.6 Chloride 106 Bicarbonate 22 Anion Gap 10 Urea Nitrogen 8 Creatinine 0.44 (*) eGFR >90 Calcium 8.1 (*) Albumin 3.1 (*) Alkaline Phosphatase 200 (*) Total Protein 6.8 AST 17 Bilirubin, Total 0.3 ALT 12 D-DIMER, VTE EXCLUSION - Abnormal D-Dimer, Quantitative VTE Exclusion 1,367 (*) Narrative: The VTE Exclusion D-Dimer assay is reported in ng/mL Fibrinogen Equivalent Units (FEU). Per zumba instructor's instructions for use, a value of less than 500 ng/mL (FEU) may help to exclude DVT or PE in outpatients when the assay is used with a clinical pretest probability assessment.(AEMR must utilize and document eCalc 'Wells Score Deep Vein Thrombosis Risk' for DVT exclusion only. Emergency Department should utilize Guidelines for Emergency Department Use of the VTE Exclusion D-Dimer and Clinical Pretest probability assessment model for DVT or PE exclusion.) TROPONIN I, HIGH SENSITIVITY - Normal Troponin I, High Sensitivity 4 Narrative: Less than 99th percentile of normal range cutoff- Female and children under 18 years old <14 ng/L; Male <21 ng/L: Negative Repeat testing should be performed if clinically indicated. Female and children under 18 years old 14-50 ng/L; Male 21-50 ng/L: Consistent with possible cardiac damage and possible increased clinical risk. Serial measurements may help to assess extent of myocardial damage. >50 ng/L: Consistent with cardiac damage, increased clinical risk and myocardial infarction. Serial measurements may help assess extent of myocardial damage. NOTE: Children less than 1 year old may have higher baseline troponin levels and results should be interpreted in conjunction with the overall clinical context. NOTE: Troponin I testing is performed using a different testing methodology at [facility] than at [facility]. Direct result comparisons should only be made within the same method. SARS-COV-2 PCR - Normal Coronavirus 2019, PCR Not Detected Narrative: This assay is an FDA-cleared, in vitro diagnostic nucleic acid amplification test for the qualitative detection and differentiation of SARS CoV-2 from nasopharyngeal specimens collected from individuals with signs and symptoms of respiratory tract infections, and has been validated for use at [facility]. Negative results do not preclude COVID-19 infections and should not be used as the sole basis for diagnosis, treatment, or other management decisions. Testing for SARS CoV-2 is recommended only for patients who meet current clinical and/or epidemiological criteria defined by federal, state, or local public health directives. INFLUENZA A AND B PCR - Normal Flu A Result Not Detected Flu B Result Not Detected Narrative: This assay is an in vitro diagnostic multiplex nucleic acid amplification test for the detection and discrimination of Influenza A & B from nasopharyngeal specimens, and has been validated for use at [facility]. Negative results do not preclude Influenza A/B infections, and should not be used as the sole basis for diagnosis, treatment, or other management decisions. If Influenza A/B and RSV PCR results are negative, testing for Parainfluenza virus, Adenovirus and Metapneumovirus is routinely performed for [facility] [place] and intensive care inpatients, and is available on other patients by placing an add-on request. TSH WITH REFLEX TO FREE T4 IF ABNORMAL - Normal Thyroid Stimulating Hormone 2.25 Narrative: TSH testing is performed using different testing methodology at [facility] than at other [facility]. Direct result comparisons should only be made within the same method. Medical Decision Making 1 medication as prescribed 2 Tylenol for fever or pain 3 follow-up with sample examiner tomorrow if symptoms worsen return to ED. Final diagnoses: [J18.9] Pneumonia of left lower lobe due to infectious organism Procedure Procedures DO John Dorsey DO 10/06/241931 [facility] Work Phone: 10-06-2024 Emergency department Note Emergency Medicine Transition of Care Note. I received Maryana Regalado Stewart in signout from Dr. Damon. Please see the previous ED provider note for all HPI, PE and MDM up to the time of signout at 1900. This is in addition to the primary record. Go over all the results with the patient. Patient has a left lower lobe pneumonia. We will treat her here with 1 g of ceftriaxone and she will be discharged. Have instructed her to call her sample examiner in the morning and if she has any worsening of symptoms she is to return to ED. Patient on discharge is not hypoxic or tachypneic. In brief Maryana William is an 19 y.o. female presenting for Chief Complaint Patient presents with Shortness of Breath C/o SOB intermittently since yesterday, lasts about 5-6 minutes. Also c/o right sided CP for the last few days At the time of signout we were awaiting: CT Diagnoses as of 10/06/241930 Pneumonia of left lower lobe due to infectious organism CT angio chest for pulmonary embolism Final Result 1. Consolidation at the base of the left lower lobe concerning for infectious or inflammatory pneumonitis. 2. No evidence for pulmonary embolus. Signed by Kyle Perez MD XR chest 1 view Final Result Ill-defined opacity at the left lung base favored to represent atelectasis or developing pneumonia. MACRO: None. Signed by: Arsenio Roy 10/06/2024 5:34 PM Dictation workstation: [id number] Labs Reviewed CBC WITH AUTO DIFFERENTIAL - Abnormal Result Value WBC 12.9 (*) nRBC 0.0 RBC 3.61 (*) Hemoglobin 9.8 (*) Hematocrit 29.7 (*) MCV 82 MCH 27.1 MCHC 33.0 RDW 12.3 Platelets 417 Neutrophils % 73.3 Immature Granulocytes %, Automated 0.8 Lymphocytes % 18.3 Monocytes % 6.4 Eosinophils % 0.9 Basophils % 0.3 Neutrophils Absolute 9.46 (*) Immature Granulocytes Absolute, Automated 0.10 Lymphocytes Absolute 2.36 Monocytes Absolute 0.83 Eosinophils Absolute 0.11 Basophils Absolute 0.04 COMPREHENSIVE METABOLIC PANEL - Abnormal Glucose 89 Sodium 134 (*) Potassium 3.6 Chloride 106 Bicarbonate 22 Anion Gap 10 Urea Nitrogen 8 Creatinine 0.44 (*) eGFR >90 Calcium 8.1 (*) Albumin 3.1 (*) Alkaline Phosphatase 200 (*) Total Protein 6.8 AST 17 Bilirubin, Total 0.3 ALT 12 D-DIMER, VTE EXCLUSION - Abnormal D-Dimer, Quantitative VTE Exclusion 1,367 (*) Narrative: The VTE Exclusion D-Dimer assay is reported in ng/mL Fibrinogen Equivalent Units (FEU). Per zumba instructor's instructions for use, a value of less than 500 ng/mL (FEU) may help to exclude DVT or PE in outpatients when the assay is used with a clinical pretest probability assessment.(AE must utilize and document eCalc 'Wells Score Deep Vein Thrombosis Risk' for DVT exclusion only. Emergency Department should utilize Guidelines for Emergency Department Use of the VTE Exclusion D-Dimer and Clinical Pretest probability assessment model for DVT or PE exclusion.) TROPONIN I, HIGH SENSITIVITY - Normal Troponin I, High Sensitivity 4 Narrative: Less than 99th percentile of normal range cutoff- Female and children under 18 years old <14 ng/L; Male <21 ng/L: Negative Repeat testing should be performed if clinically indicated. Female and children under 18 years old 14-50 ng/L; Male 21-50 ng/L: Consistent with possible cardiac damage and possible increased clinical risk. Serial measurements may help to assess extent of myocardial damage. >50 ng/L: Consistent with cardiac damage, increased clinical risk and myocardial infarction. Serial measurements may help assess extent of myocardial damage. NOTE: Children less than 1 year old may have higher baseline troponin levels and results should be interpreted in conjunction with the overall clinical context. NOTE: Troponin I testing is performed using a different testing methodology at [facility] than at [facility]. Direct result comparisons should only be made within the same method. SARS-COV-2 PCR - Normal Coronavirus 2019, PCR Not Detected Narrative: This assay is an FDA-cleared, in vitro diagnostic nucleic acid amplification test for the qualitative detection and differentiation of SARS CoV-2 from nasopharyngeal specimens collected from individuals with signs and symptoms of respiratory tract infections, and has been validated for use at [facility]. Negative results do not preclude COVID-19 infections and should not be used as the sole basis for diagnosis, treatment, or other management decisions. Testing for SARS CoV-2 is recommended only for patients who meet current clinical and/or epidemiological criteria defined by federal, state, or local public health directives. INFLUENZA A AND B PCR - Normal Flu A Result Not Detected Flu B Result Not Detected Narrative: This assay is an in vitro diagnostic multiplex nucleic acid amplification test for the detection and discrimination of Influenza A & B from nasopharyngeal specimens, and has been validated for use at [facility]. Negative results do not preclude Influenza A/B infections, and should not be used as the sole basis for diagnosis, treatment, or other management decisions. If Influenza A/B and RSV PCR results are negative, testing for Parainfluenza virus, Adenovirus and Metapneumovirus is routinely performed for [facility] [place] and intensive care inpatients, and is available on other patients by placing an add-on request. TSH WITH REFLEX TO FREE T4 IF ABNORMAL - Normal Thyroid Stimulating Hormone 2.25 Narrative: TSH testing is performed using different testing methodology at [facility] than at [facility]. Direct result comparisons should only be made within the same method. Medical Decision Making 1 medication as prescribed 2 Tylenol for fever or pain 3 follow-up with sample examiner tomorrow if symptoms worsen return to ED. Final diagnoses: [J18.9] Pneumonia of left lower lobe due to infectious organism Procedure Procedures DO John Dorsey DO 10/06/241931 Associated Order(s): ECG 12 lead HPI No chief complaint on file. Limitations to History: None HPI: 19-year-old G2, P1 female at 32 weeks presents with concern for shortness of breath and palpitations. States that this began yesterday. Yesterday last approximate 6 minutes. Improved while sitting down. Began again today while at work and lasted approximately 45 minutes. Patient states that she is seeing the hospital within the past week for pain in her right ribs. Negative workup at that time. Denies any fever, chills, nausea, vomiting, abdominal pain, urinary symptoms, vaginal bleeding or loss of vaginal fluid. Additional History Obtained from: Significant other at the bedside. Physical Exam: VS: As documented in the triage note and EMR flowsheet from this visit were reviewed. Appearance: Alert. cooperative, in no acute distress. Skin: Intact, dry skin, no lesions, rash, petechiae or purpura. Eyes: PERRLA, EOMs intact, Conjunctiva pink with no redness or exudates. HENT: Normocephalic, atraumatic. Nares patent. No intraoral lesions. Neck: Supple, without meningismus. Trachea at midline. No lymphadenopathy. Pulmonary: Clear bilaterally with good chest wall excursion. No rales, rhonchi or wheezing. No accessory muscle use or stridor. Cardiac: Regular rate and rhythm, no rubs, murmurs, or gallops. Abdomen: Abdomen is soft, nontender, and nondistended. No palpable organomegaly. No rebound or guarding. No CVA tenderness. Nonsurgical abdomen. Genitourinary: Exam deferred. Musculoskeletal: Full range of motion. Pulses full and equal. No cyanosis, clubbing, or edema. Neurological: Cranial nerves are grossly intact, grossly normal sensation, no weakness, no focal findings identified. Psychiatric: Appropriate mood and affect. Patient History Medical History[1] Surgical History[2] Family History[3] Social History[4] Physical Exam ED Triage Vitals [10/06/24 1652] Temperature Heart Rate Respirations BP 36.7 C (98 F) (!) 106 18 124/79 Pulse Ox Temp src Heart Rate Source Patient Position 98 % -- Monitor -- BP Location FiO2 (%) -- -- Physical Exam ED Course & MDM No data recorded Medical Decision Making Labs Reviewed CBC WITH AUTO DIFFERENTIAL - Abnormal WBC 12.9 (*) nRBC 0.0 RBC 3.61 (*) Hemoglobin 9.8 (*) Hematocrit 29.7 (*) MCV 82 MCH 27.1 MCHC 33.0 RDW 12.3 Platelets 417 Neutrophils % 73.3 Immature Granulocytes %, Automated 0.8 Lymphocytes % 18.3 Monocytes % 6.4 Eosinophils % 0.9 Basophils % 0.3 Neutrophils Absolute 9.46 (*) Immature Granulocytes Absolute, Au* 0.10 Lymphocytes Absolute 2.36 Monocytes Absolute 0.83 Eosinophils Absolute 0.11 Basophils Absolute 0.04 COMPREHENSIVE METABOLIC PANEL - Abnormal Glucose 89 Sodium 134 (*) Potassium 3.6 Chloride 106 Bicarbonate 22 Anion Gap 10 Urea Nitrogen 8 Creatinine 0.44 (*) eGFR >90 Calcium 8.1 (*) Albumin 3.1 (*) Alkaline Phosphatase 200 (*) Total Protein 6.8 AST 17 Bilirubin, Total 0.3 ALT 12 D-DIMER, VTE EXCLUSION - Abnormal D-Dimer, Quantitative VTE Exclusion 1,367 (*) Narrative: The VTE Exclusion D-Dimer assay is reported in ng/mL Fibrinogen Equivalent Units (FEU). Per zumba instructor's instructions for use, a value of less than 500 ng/mL (FEU) may help to exclude DVT or PE in outpatients when the assay is used with a clinical pretest probability assessment.(AEMR must utilize and document eCalc 'Wells Score Deep Vein Thrombosis Risk' for DVT exclusion only. Emergency Department should utilize Guidelines for Emergency Department Use of the VTE Exclusion D-Dimer and Clinical Pretest probability assessment model for DVT or PE exclusion.) TROPONIN I, HIGH SENSITIVITY - Normal Troponin I, High Sensitivity 4 Narrative: Less than 99th percentile of normal range cutoff- Female and children under 18 years old <14 ng/L; Male <21 ng/L: Negative Repeat testing should be performed if clinically indicated. Female and children under 18 years old 14-50 ng/L; Male 21-50 ng/L: Consistent with possible cardiac damage and possible increased clinical risk. Serial measurements may help to assess extent of myocardial damage. >50 ng/L: Consistent with cardiac damage, increased clinical risk and myocardial infarction. Serial measurements may help assess extent of myocardial damage. NOTE: Children less than 1 year old may have higher baseline troponin levels and results should be interpreted in conjunction with the overall clinical context. NOTE: Troponin I testing is performed using a different testing methodology at [facility] than at [facility]. Direct result comparisons should only be made within the same method. SARS-COV-2 PCR - Normal Coronavirus 2019, PCR Narrative: This assay is an FDA-cleared, in vitro diagnostic nucleic acid amplification test for the qualitative detection and differentiation of SARS CoV-2 from nasopharyngeal specimens collected from individuals with signs and symptoms of respiratory tract infections, and has been validated for use at [facility]. Negative results do not preclude COVID-19 infections and should not be used as the sole basis for diagnosis, treatment, or other management decisions. Testing for SARS CoV-2 is recommended only for patients who meet current clinical and/or epidemiological criteria defined by federal, state, or local public health directives. INFLUENZA A AND B PCR - Normal Flu A Result Flu B Result Narrative: This assay is an in vitro diagnostic multiplex nucleic acid amplification test for the detection and discrimination of Influenza A & B from nasopharyngeal specimens, and has been validated for use at [facility]. Negative results do not preclude Influenza A/B infections, and should not be used as the sole basis for diagnosis, treatment, or other management decisions. If Influenza A/B and RSV PCR results are negative, testing for Parainfluenza virus, Adenovirus and Metapneumovirus is routinely performed for [facility] [place] and intensive care inpatients, and is available on other patients by placing an add-on request. TSH WITH REFLEX TO FREE T4 IF ABNORMAL - Normal XR chest 1 view Final Result Ill-defined opacity at the left lung base favored to represent atelectasis or developing pneumonia. MACRO: None. Signed by: Arsenio Roy 10/06/2024 5:34 PM Dictation workstation: [id number] CT angio chest for pulmonary embolism (Results Pending) Medical Decision Making: Patient appears well nontoxic. Tachycardic. EKG nonischemic. White blood cell count of 12.9. Troponin negative. Chest x-ray shows possible left lower infiltrate. D-dimer greater than 1000. Per years algorithm recommended CTA chest. This is pending at time of handoff to incoming physician Dr. Spaudling. Stable at time of handoff. Differential Diagnoses Considered: Pneumonia, pneumothorax, viral illness, pulmonary embolism Independent Interpretation of Studies: I independently interpreted: Chest x-ray shows left lower infiltrate. Escalation of Care: Appropriate for handoff to incoming physician. Procedure ECG 12 lead Performed by: Jose Damon DO Authorized by: Jose Damon DO ECG interpreted by ED Physician in the absence of a frame stylist: yes Comments: EKG interpreted by Dr. Jose Damon: Sinus tachycardia 102 bpm. WA interval 118 ms. QTc of 435 ms. 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 [4] Social History Tobacco Use Smoking status: Never Smokeless tobacco: Never Substance Use Topics Alcohol use: Never Drug use: Never Jose Damon DO 10/06/241904 documented in this encounter [facility] Work Phone: 10-06-2024 Physician Emergency department Note Associated Order(s): ECG 12 lead HPI No chief complaint on file. Limitations to History: None HPI: 19-year-old G2, P1 female at 32 weeks presents with concern for shortness of breath and palpitations. States that this began yesterday. Yesterday last approximate 6 minutes. Improved while sitting down. Began again today while at work and lasted approximately 45 minutes. Patient states that she is seeing the hospital within the past week for pain in her right ribs. Negative workup at that time. Denies any fever, chills, nausea, vomiting, abdominal pain, urinary symptoms, vaginal bleeding or loss of vaginal fluid. Additional History Obtained from: Significant other at the bedside. Physical Exam: VS: As documented in the triage note and EMR flowsheet from this visit were reviewed. Appearance: Alert. cooperative, in no acute distress. Skin: Intact, dry skin, no lesions, rash, petechiae or purpura. Eyes: PERRLA, EOMs intact, Conjunctiva pink with no redness or exudates. HENT: Normocephalic, atraumatic. Nares patent. No intraoral lesions. Neck: Supple, without meningismus. Trachea at midline. No lymphadenopathy. Pulmonary: Clear bilaterally with good chest wall excursion. No rales, rhonchi or wheezing. No accessory muscle use or stridor. Cardiac: Regular rate and rhythm, no rubs, murmurs, or gallops. Abdomen: Abdomen is soft, nontender, and nondistended. No palpable organomegaly. No rebound or guarding. No CVA tenderness. Nonsurgical abdomen. Genitourinary: Exam deferred. Musculoskeletal: Full range of motion. Pulses full and equal. No cyanosis, clubbing, or edema. Neurological: Cranial nerves are grossly intact, grossly normal sensation, no weakness, no focal findings identified. Psychiatric: Appropriate mood and affect. Patient History Medical History[1] Surgical History[2] Family History[3] Social History[4] Physical Exam ED Triage Vitals [10/06/24 1652] Temperature Heart Rate Respirations BP 36.7 C (98 F) (!) 106 18 124/79 Pulse Ox Temp src Heart Rate Source Patient Position 98 % -- Monitor -- BP Location FiO2 (%) -- -- Physical Exam ED Course & MDM No data recorded Medical Decision Making Labs Reviewed CBC WITH AUTO DIFFERENTIAL - Abnormal WBC 12.9 (*) nRBC 0.0 RBC 3.61 (*) Hemoglobin 9.8 (*) Hematocrit 29.7 (*) MCV 82 MCH 27.1 MCHC 33.0 RDW 12.3 Platelets 417 Neutrophils % 73.3 Immature Granulocytes %, Automated 0.8 Lymphocytes % 18.3 Monocytes % 6.4 Eosinophils % 0.9 Basophils % 0.3 Neutrophils Absolute 9.46 (*) Immature Granulocytes Absolute, Au* 0.10 Lymphocytes Absolute 2.36 Monocytes Absolute 0.83 Eosinophils Absolute 0.11 Basophils Absolute 0.04 COMPREHENSIVE METABOLIC PANEL - Abnormal Glucose 89 Sodium 134 (*) Potassium 3.6 Chloride 106 Bicarbonate 22 Anion Gap 10 Urea Nitrogen 8 Creatinine 0.44 (*) eGFR >90 Calcium 8.1 (*) Albumin 3.1 (*) Alkaline Phosphatase 200 (*) Total Protein 6.8 AST 17 Bilirubin, Total 0.3 ALT 12 D-DIMER, VTE EXCLUSION - Abnormal D-Dimer, Quantitative VTE Exclusion 1,367 (*) Narrative: The VTE Exclusion D-Dimer assay is reported in ng/mL Fibrinogen Equivalent Units (FEU). Per zumba instructor's instructions for use, a value of less than 500 ng/mL (FEU) may help to exclude DVT or PE in outpatients when the assay is used with a clinical pretest probability assessment.(AE must utilize and document eCalc 'Wells Score Deep Vein Thrombosis Risk' for DVT exclusion only. Emergency Department should utilize Guidelines for Emergency Department Use of the VTE Exclusion D-Dimer and Clinical Pretest probability assessment model for DVT or PE exclusion.) TROPONIN I, HIGH SENSITIVITY - Normal Troponin I, High Sensitivity 4 Narrative: Less than 99th percentile of normal range cutoff- Female and children under 18 years old <14 ng/L; Male <21 ng/L: Negative Repeat testing should be performed if clinically indicated. Female and children under 18 years old 14-50 ng/L; Male 21-50 ng/L: Consistent with possible cardiac damage and possible increased clinical risk. Serial measurements may help to assess extent of myocardial damage. >50 ng/L: Consistent with cardiac damage, increased clinical risk and myocardial infarction. Serial measurements may help assess extent of myocardial damage. NOTE: Children less than 1 year old may have higher baseline troponin levels and results should be interpreted in conjunction with the overall clinical context. NOTE: Troponin I testing is performed using a different testing methodology at [facility] than at [facility]. Direct result comparisons should only be made within the same method. SARS-COV-2 PCR - Normal Coronavirus 2019, PCR Narrative: This assay is an FDA-cleared, in vitro diagnostic nucleic acid amplification test for the qualitative detection and differentiation of SARS CoV-2 from nasopharyngeal specimens collected from individuals with signs and symptoms of respiratory tract infections, and has been validated for use at [facility]. Negative results do not preclude COVID-19 infections and should not be used as the sole basis for diagnosis, treatment, or other management decisions. Testing for SARS CoV-2 is recommended only for patients who meet current clinical and/or epidemiological criteria defined by federal, state, or local public health directives. INFLUENZA A AND B PCR - Normal Flu A Result Flu B Result Narrative: This assay is an in vitro diagnostic multiplex nucleic acid amplification test for the detection and discrimination of Influenza A & B from nasopharyngeal specimens, and has been validated for use at [facility]. Negative results do not preclude Influenza A/B infections, and should not be used as the sole basis for diagnosis, treatment, or other management decisions. If Influenza A/B and RSV PCR results are negative, testing for Parainfluenza virus, Adenovirus and Metapneumovirus is routinely performed for [facility] in[place], and is available on other patients by placing an add-on request. TSH WITH REFLEX TO FREE T4 IF ABNORMAL - Normal XR chest 1 view Final Result Ill-defined opacity at the left lung base favored to represent atelectasis or developing pneumonia. MACRO: None. Signed by: Arsenio Roy 10/06/2024 5:34 PM Dictation workstation: [id number] CT angio chest for pulmonary embolism (Results Pending) Medical Decision Making: Patient appears well nontoxic. Tachycardic. EKG nonischemic. White blood cell count of 12.9. Troponin negative. Chest x-ray shows possible left lower infiltrate. D-dimer greater than 1000. Per years algorithm recommended CTA chest. This is pending at time of handoff to incoming physician Dr. Spaulding. Stable at time of handoff. Differential Diagnoses Considered: Pneumonia, pneumothorax, viral illness, pulmonary embolism Independent Interpretation of Studies: I independently interpreted: Chest x-ray shows left lower infiltrate. Escalation of Care: Appropriate for handoff to incoming physician. Procedure ECG 12 lead Performed by: Jose Damon DO Authorized by: Jose Damon DO ECG interpreted by ED Physician in the absence of a frame stylist: yes Comments: EKG interpreted by Dr. Jose Damon: Sinus tachycardia 102 bpm. WA interval 118 ms. QTc of 435 ms. 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 [4] Social History Tobacco Use Smoking status: Never Smokeless tobacco: Never Substance Use Topics Alcohol use: Never Drug use: Never Jose Damon DO 10/06/24 190 [facility] Work Phone: 10-06-2024 Telephone encounter Note Patient called back to determine which emergency room she should head to. Advised nearest emergency room. She will head to [facility]. [facility] 10-06-2024 Miscellaneous Notes Patient called back to determine which emergency room she should head to. Advised nearest emergency room. She will head to [facility]. Reason for Call: difficulty breathing, back pain Outcome: Based on symptoms and assessment findings at this time, Patient advised to go the Emergency Room now (patient reports she is planning to deliver at [place].. Patient plans to go to Hospital at this time. Encouraged to pulling unit operator and call 911 if anything worsens or changes en route. Patient verbalizes understanding. Reason for Disposition [1] MODERATE difficulty breathing (e.g., speaks in phrases, SOB even at rest, pulse 100-120) AND [2] NEW-onset or WORSE than normal NURSING JUDGMENT: Was seen for calf pain in July and September-Shortness of breath that comes and goes that lasts for 10 minutes with Back aches (lower back) persistent constantly; breathing gets to the point where I feel faint; HR about 80 (by patient counting for 15 seconds, getting 20) reports she can feel her heart pounding; history of pre-eclampsia in previous ; Protocols used: Breathing [id number] documented in this encounter [facility] 10-06-2024 Telephone encounter Note Reason for Call: difficulty breathing, back pain Outcome: Based on symptoms and assessment findings at this time, Patient advised to go the Emergency Room now (patient reports she is planning to deliver at [place].. Patient plans to go to Hospital at this time. Encouraged to pulling unit operator and call 911 if anything worsens or changes en route. Patient verbalizes understanding. Reason for Disposition [1] MODERATE difficulty breathing (e.g., speaks in phrases, SOB even at rest, pulse 100-120) AND [2] NEW-onset or WORSE than normal NURSING JUDGMENT: Was seen for calf pain in July and September-Shortness of breath that comes and goes that lasts for 10 minutes with Back aches (lower back) persistent constantly; breathing gets to the point where I feel faint; HR about 80 (by patient counting for 15 seconds, getting 20) reports she can feel her heart pounding; history of pre-eclampsia in previous ; Protocols used: Breathing [id number] [facility] 09-23-2024 Progress note Formatting of t his note might be different from the original. RR- VB No. LOF No. CTXS No. Movement: present. Other c/o: No. Medication list reviewed. SENSITIVE EXAM: Sensitive exam not performed. Physical Exam See Flow Sheet Abd: soft, nontender, gravid A/P 30w0d Estimated Date of Delivery: 12/02/24 Assessment & Plan 30 weeks gestation of (HCC) Orders: URINE OB DIP B/O Late care (HCC) Orders: URINE OB DIP B/O Supervision of high risk in third trimester (HCC) Orders: URINE OB DIP B/O kick counts plan worksheet reviewed f/u in 2 weeks or prn Tyrell Spencer M.D. [facility] 09-23-2024 Miscellaneous Notes RR- VB No. LOF No. CTXS No. Movement: present. Other c/o: No. Medication list reviewed. SENSITIVE EXAM: Sensitive exam not performed. Physical Exam See Flow Sheet Abd: soft, nontender, gravid A/P 30w0d Estimated Date of Delivery: 12/02/24 Assessment & Plan 30 weeks gestation of (HCC) Orders: URINE OB DIP B/O Late care (HCC) Orders: URINE OB DIP B/O Supervision of high risk in third trimester (HCC) Orders: URINE OB DIP B/O kick counts plan worksheet reviewed f/u in 2 weeks or prn Tyrell Spencer M.D. documented in this encounter [facility] 09-23-2024 Instructions Airna Sanchez MA - 09/23/2024 3:29 PM EDT SEQUENTIAL SCREENINGS The [facility] offers sequential screenings for women who are interested in screenings for chromosomal abnormalities and certain defects during a . The sequential screen combines ultrasound and blood tests to determine the risk of chromosomal abnormalities, including Down's Syndrome (Trisomy 21) and Trisomy 18, as well as open neural tube defects including spina bifida. Ultrasound examination is performed between 11 weeks and 13 weeks gestational age. Blood tests are drawn after the ultrasound and again later in the between 15 and 21 weeks gestational age. Please let your physician know if you are interested in this testing. It will require an appointment with our science technician. This is not an ultrasound performed by a physician in our office during a routine visit. SIGNS AND SYMPTOMS OF LABOR 1. Contractions every 10 minutes or more often 2. Clear, pink, or brownish fluid (water) leaking from vagina 3. Feeling that baby is pushing down, pressure 4. Low, dull backache 5. Cramps that feel like a period 6. Cramps with or without diarrhea If you notice any of the above symptoms, contact our office at [phone] and ask to speak with a nurse. After hours, you can call doctors registry at [phone] OR call [facility] at [phone] and ask to have the doctor sanitation inspector paged. If you consider this an emergency, dial 9-1-6 or go to your nearest emergency department. NEED HELP? Are you dealing with a violent or abusive relationship? Are you a victim of rape or sexual assult? Call [facility] ([place]) 24 hour Crisis Hotline: 478.352.8550 or 149-227-7322. MANUAL Your Guide to a Healthy manual is now on-line. Visit [email or web address] to download your free copy documented in this encounter [facility] 09-09-2024 Progress note Formatting of t his note might be different from the original. SW- Pt doing well. No pain, vb, lof. Good FM PE: Gen- NAD, well appearing Abd- Soft, gravid, NT See flowsheet A/p 28 wk gestation - LARC signed - Tdap today - plan sheet given - 28 wk labs - Rto 2 wk Jennifer De La Torre DO [facility] 09-09-2024 Miscellaneous Notes SW- Pt doing well. No pain, vb, lof. Good FM PE: Gen- NAD, well appearing Abd- Soft, gravid, NT See flowsheet A/p 28 wk gestation - LARC signed - Tdap today - plan sheet given - 28 wk labs - Rto 2 wk Jennifer De La Torre DO documented in this encounter [facility] 09-09-2024 Note HNO ID: [id number] Author: VANNA BIRMINGHAM MA Service: ? Author Type: Film Reader Type: Progress Notes Filed: 09/09/2024 16:20 Note Text: Patient identified by name and date of . Maryana William presents today for a vaccination of Tdap. Patient denies an allergy to latex: yes Patient denies a severe (life-threatening) allergy to a previous dose of Tdap, DTP, DTaP, DT or Td vaccine. Yes Patient denies history of epilepsy or neurological problems: Yes Patient is afebrile and denies being moderately or severely ill: Yes Patient denies history of Guillain-Brownwood Syndrome (a severe paralytic illness): Yes Tdap Adacel injection was given without incident. See immunizations for details of immunizations administered today. VIS sheet provided: Yes Provider Jennifer De La Torre DO was present in office at time of injection. Vanna Birmingham MA [facility] 09-09-2024 History of Present illness Narrative Patient identified by name and date of . Maryana William presents today for a vaccination of Tdap. Patient denies an allergy to latex: yes Patient denies a severe (life-threatening) allergy to a previous dose of Tdap, DTP, DTaP, DT or Td vaccine. Yes Patient denies history of epilepsy or neurological problems: Yes Patient is afebrile and denies being moderately or severely ill: Yes Patient denies history of Guillain-Brownwood Syndrome (a severe paralytic illness): Yes Tdap Adacel injection was given without incident. See immunizations for details of immunizations administered today. VIS sheet provided: Yes Provider Jennifre De La Torre DO was present in office at time of injection. Vanna Birmingham MA documented in this encounter [facility] 09-09-2024 Instructions Vanna Birmingham MA - 09/09/2024 2:30 PM EDT SEQUENTIAL SCREENINGS The [facility] offers sequential screenings for women who are interested in screenings for chromosomal abnormalities and certain defects during a . The sequential screen combines ultrasound and blood tests to determine the risk of chromosomal abnormalities, including Down's Syndrome (Trisomy 21) and Trisomy 18, as well as open neural tube defects including spina bifida. Ultrasound examination is performed between 11 weeks and 13 weeks gestational age. Blood tests are drawn after the ultrasound and again later in the between 15 and 21 weeks gestational age. Please let your physician know if you are interested in this testing. It will require an appointment with our science technician. This is not an ultrasound performed by a physician in our office during a routine visit. SIGNS AND SYMPTOMS OF LABOR 1. Contractions every 10 minutes or more often 2. Clear, pink, or brownish fluid (water) leaking from vagina 3. Feeling that baby is pushing down, pressure 4. Low, dull backache 5. Cramps that feel like a period 6. Cramps with or without diarrhea If you notice any of the above symptoms, contact our office at [phone] and ask to speak with a nurse. After hours, you can call doctors registry at [phone] OR call [facility] at [phone] and ask to have the doctor sanitation inspector paged. If you consider this an emergency, dial 9-1-1 or go to your nearest emergency department. NEED HELP? Are you dealing with a violent or abusive relationship? Are you a victim of rape or sexual assult? Call [facility] ([place]) 24 hour Crisis Hotline: 576.558.3973 or 335-685-6406. MANUAL Your Guide to a Healthy manual is now on-line. Visit [email or web address] to download your free copy documented in this encounter [facility] 09-06-2024 Telephone encounter Note Agree with plan of care. Anayeli Murry APRN.CNM [facility] Work Phone: 09-06-2024 Miscellaneous Notes Agree with plan of care. Anayeli Murry APRN.CNM 27w4d Called and spoke with patient. States it hurts right above the knee at her thigh. Unsure if there is any warmth or redness in the area. Currently at work. States when she sits down the pain radiates to her toes. Encouraged to go to ER for evaluation to rule out DVT. Asked that patient send us a Mychart message with an update from her ER visit. Patient voiced agreement. Sanjuana Caceres RN documented in this encounter [facility] 09-06-2024 Telephone encounter Note 27w4d Called and spoke with patient. States it hurts right above the knee at her thigh. Unsure if there is any warmth or redness in the area. Currently at work. States when she sits down the pain radiates to her toes. Encouraged to go to ER for evaluation to rule out DVT. Asked that patient send us a Mychart message with an update from her ER visit. Patient voiced agreement. Sanjuana Caceres RN [facility] 08-12-2024 Progress note Formatting of t his note might be different from the original. RR- VB No. LOF No. CTXS No. Movement: present. Other c/o: No. Medication list reviewed. SENSITIVE EXAM: Sensitive exam not performed. Physical Exam See Flow Sheet Abd: soft, nontender, gravid Ext: edema: Trace A/P 24w0d Estimated Date of Delivery: 12/02/24 Assessment & Plan 24 weeks gestation of Orders: GESTATIONAL GLUCOSE SCREEN, 1-HOUR, 50 GRAM, NON-FASTING; Future SYPHILIS TREPONEMAL W/REFLEX; Future ANEMIA REFLEX PANEL; Future Screening for diabetes mellitus Orders: GESTATIONAL GLUCOSE SCREEN, 1-HOUR, 50 GRAM, NON-FASTING; Future SYPHILIS TREPONEMAL W/REFLEX; Future ANEMIA REFLEX PANEL; Future Supervision of high risk , antepartum flu vaccine next visit, doesn't want today, declines levon Spencer M.D. [facility] 08-12-2024 Miscellaneous Notes RR- VB No. LOF No. CTXS No. Movement: present. Other c/o: No. Medication list reviewed. SENSITIVE EXAM: Sensitive exam not performed. Physical Exam See Flow Sheet Abd: soft, nontender, gravid Ext: edema: Trace A/P 24w0d Estimated Date of Delivery: 12/02/24 Assessment & Plan 24 weeks gestation of Orders: GESTATIONAL GLUCOSE SCREEN, 1-HOUR, 50 GRAM, NON-FASTING; Future SYPHILIS TREPONEMAL W/REFLEX; Future ANEMIA REFLEX PANEL; Future Screening for diabetes mellitus Orders: GESTATIONAL GLUCOSE SCREEN, 1-HOUR, 50 GRAM, NON-FASTING; Future SYPHILIS TREPONEMAL W/REFLEX; Future ANEMIA REFLEX PANEL; Future Supervision of high risk , antepartum flu vaccine next visit, doesn't want today, declines levon Spencer M.D. documented in this encounter [facility] 08-12-2024 Instructions Arina Sanchez MA - 08/12/2024 3:05 PM EDT SEQUENTIAL SCREENINGS The [facility] offers sequential screenings for women who are interested in screenings for chromosomal abnormalities and certain defects during a . The sequential screen combines ultrasound and blood tests to determine the risk of chromosomal abnormalities, including Down's Syndrome (Trisomy 21) and Trisomy 18, as well as open neural tube defects including spina bifida. Ultrasound examination is performed between 11 weeks and 13 weeks gestational age. Blood tests are drawn after the ultrasound and again later in the between 15 and 21 weeks gestational age. Please let your physician know if you are interested in this testing. It will require an appointment with our science technician. This is not an ultrasound performed by a physician in our office during a routine visit. SIGNS AND SYMPTOMS OF LABOR 1. Contractions every 10 minutes or more often 2. Clear, pink, or brownish fluid (water) leaking from vagina 3. Feeling that baby is pushing down, pressure 4. Low, dull backache 5. Cramps that feel like a period 6. Cramps with or without diarrhea If you notice any of the above symptoms, contact our office at [phone] and ask to speak with a nurse. After hours, you can call doctors registry at [phone] OR call [facility] at [phone] and ask to have the doctor sanitation inspector paged. If you consider this an emergency, dial 4-2-4 or go to your nearest emergency department. NEED HELP? Are you dealing with a violent or abusive relationship? Are you a victim of rape or sexual assult? Call [facility] ([place]) 24 hour Crisis Hotline: 860.378.3808 or 552-542-7862. MANUAL Your Guide to a Healthy manual is now on-line. Visit [facility] [email or web address] to download your free copy documented in this encounter [facility] 07-18-2024 Note HNO ID: [id number] Author: MARGO BULLARD APRN.LOOM FIXER SUPERVISOR Service: ? Author Type: Nurse Practitioner Type: Progress Notes Filed: 07/18/2024 13:54 Note Text: 20 weeks . Patient did have some complications with her last such as preeclampsia. Patient says she has bilateral calf pain. Patient says the left is significantly worse. Patient rates it about a 6 or 7 out of 10. Patient says it is even uncomfortable when laying down. Patient also does have sick symptoms however due to and calf pain patient is being referred to the emergency room for an evaluation mother was agreeable and will take her now. [facility] 07-18-2024 History of Present illness Narrative 20 weeks . Patient did have some complications with her last such as preeclampsia. Patient says she has bilateral calf pain. Patient says the left is significantly worse. Patient rates it about a 6 or 7 out of 10. Patient says it is even uncomfortable when laying down. Patient also does have sick symptoms however due to and calf pain patient is being referred to the emergency room for an evaluation mother was agreeable and will take her now. documented in this encounter [facility] 07-16-2024 Progress note Formatting of t his note might be different from the original. KJ - VB No. LOF No. CTXS No. Movement: present. Other c/o: No. Medication list reviewed. Physical Exam See Flow Sheet Gen: no accute distress, well appearing Abd: soft, nontender, gravid A/P 20w1d Estimated Date of Delivery: 12/02/24 Anatomy US scheduled H/o preE - continue aspirin QHS Start iron as none in PNV H/o chlamydia - needs 36wk testing Naren Bullard MD [facility] 07-16-2024 Miscellaneous Notes KJ - VB No. LOF No. CTXS No. Movement: present. Other c/o: No. Medication list reviewed. Physical Exam See Flow Sheet Gen: no accute distress, well appearing Abd: soft, nontender, gravid A/P 20w1d Estimated Date of Delivery: 12/02/24 Anatomy US scheduled H/o preE - continue aspirin QHS Start iron as none in PNV H/o chlamydia - needs 36wk testing Naren Bullard MD documented in this encounter [facility] 07-16-2024 Instructions Arina Sanchez MA - 07/16/2024 2:16 PM EST SEQUENTIAL SCREENINGS The [facility] offers sequential screenings for women who are interested in screenings for chromosomal abnormalities and certain defects during a . The sequential screen combines ultrasound and blood tests to determine the risk of chromosomal abnormalities, including Down's Syndrome (Trisomy 21) and Trisomy 18, as well as open neural tube defects including spina bifida. Ultrasound examination is performed between 11 weeks and 13 weeks gestational age. Blood tests are drawn after the ultrasound and again later in the between 15 and 21 weeks gestational age. Please let your physician know if you are interested in this testing. It will require an appointment with our science technician. This is not an ultrasound performed by a physician in our office during a routine visit. SIGNS AND SYMPTOMS OF LABOR 1. Contractions every 10 minutes or more often 2. Clear, pink, or brownish fluid (water) leaking from vagina 3. Feeling that baby is pushing down, pressure 4. Low, dull backache 5. Cramps that feel like a period 6. Cramps with or without diarrhea If you notice any of the above symptoms, contact our office at [phone] and ask to speak with a nurse. After hours, you can call doctors registry at [phone] OR call [facility] at [phone] and ask to have the doctor sanitation inspector paged. If you consider this an emergency, dial 9-1- or go to your nearest emergency department. NEED HELP? Are you dealing with a violent or abusive relationship? Are you a victim of rape or sexual assult? Call [facility] ([place]) 24 hour Crisis Hotline: 905.320.6064 or 223-446-2442. MANUAL Your Guide to a Healthy manual is now on-line. Visit [email or web address] to download your free copy documented in this encounter [facility] 06-10-2024 Instructions Clara Cantrell LPN - 06/10/2024 2:42 PM EST Please select the following link to access the [facility] Your Guide to a Healthy . [email or web address] documented in this encounter [facility] 06-07-2024 Note HNO ID: [id number] Author: PRISCILLA MURPHY APRN.LOOM FIXER SUPERVISOR Service: ? Author Type: Nurse Practitioner Type: Progress Notes Filed: 06/10/2024 16:09 Note Text: INITIAL OB ASSESSMENT Patient declined maintenance data analyst. HPI: Maryana is a 18 year old G3 P 1 White Female here to establish Obstetrical Care. LMP 02/26/2024 from OB Dating Form. was unplanned but accepted Complaints: No OB History T0 L1 SAB1 IAB0 Ectopic0 Multiple0 Live Births1 Previous history: Prior : never History of 4th degree laceration: No History of shoulder dystocia: No History of Hypertensive disorders including pre-eclampsia or gestational hypertension: Yes History of gestational diabetes: No Patient's Risk Screening for delivery: Have you had a prior vera between 20w and 36w6d? Yes Did you present in active spontaneous labor or have ruptured membranes, or advanced cervical dilation (greater than or equal to 4 cm) or effacement? Yes How many pregnancies have you had before? 2 Did you have a previous baby with a GBS Infection? No Please select all that apply for any prior : N/A MEDICAL/PSYCHOSOCIAL HISTORY: History of hemorrhage or bleeding concerns: No Thyroid Disease: No History of chronic hypertension: No History of pre-existing diabetes: No No results found for: ABORHD No weight on file for this encounter. Last Pap: History of abnormal pap: No Prior treatment for cervical dysplasia: none. Last HPV: History of STDs: None and chlamydia Partner History of STDs: None Did you have a partner with Herpes? No Tobacco use: No E-Cigarette/Vaping Use: No Caffeine use: No Drug use: No Alcohol use: No Multivitamin with Folic acid: Yes Would refuse blood transfusion if medically necessary: No Social Needs: How often does this describe you? I don't have enough money to pay my bills: Never Within the past 12 months, have you worried that your food would run out before you had money to buy more? Never In the past 12 months, has lack of reliable transportation kept you from going to medical appointments or work, or from getting things needed for daily living? Never In the past 12 months, have you had any concerns about having a place to live, or about the condition or quality of your housing? Never Would you like more information on any of the following (please check all that apply)? Social History: Do you have any history of depression, anxiety, PTSD, or other mood problems? No Do you have a history of abuse or trauma that may impact your experience? No Are you currently employed? Yes Depression/Anxiety Screening: denies symptoms of depression. OB Depression and Anxiety Screening- This Encounter (since 06/09/2024) None Genetic Screening: Partner present: No Patient verbalized knowledge of partner family health history: Yes Do you or your partner have any personal or family history of defects not previously discussed: No Do you have history of a complicated by anomaly, genetic condition, or demise: No OB Risk Screening: Completed, positive findings include: Patient answered 'Yes' they had a prior vera between 20w and 36w6d. Marital Status:Co-habitating Partner: Name: Fercho Age: 21 Occupation: [employer] Gender: Male PAST MEDICAL HISTORY Diagnosis Date Contact dermatitis and other eczema due to other specified agent eczema Hx of pre-eclampsia in prior , currently 06/2023 third trimester 06/2023 Positive Chlamydia PCR 12/2022 PAST SURGICAL HISTORY Procedure Laterality Date ADENOIDECTOMY HX 2016 MYRINGOTOMY W TUBE,BILATERAL(2) 2016 Current Outpatient Medications Medication Sig Dispense Refill PNV no.[id number] ( GUMMIES) 400 mcg-35 mg- 25 mg-5 mg chew Take 1 Piece by mouth once daily. No current facility-administered medications for this visit. Allergies As of Date: 06/10/2024 Allergen Noted Reaction VENOM-HONEY BEE 10/16/2018 Anaphylaxis and Swelling SULFA (SULFONAMIDE ANTIBIOTICS) 10/16/2018 Hives and Swelling Fully Assessed 06/07/2024 Does patient have penicillin allergy: No REVIEW OF SYSTEMS: GENERAL: Negative for: Fever or Chills HEENT: Negative for: Headache, Impaired Vision, Ringing in Ears, Nosebleeds NECK: Negative for: Swelling, Pain, Stiffness RESPIRATORY: Negative for: Cough, Shortness of breath, Wheezing GASTROINTESTINAL: Negative for: Heartburn, Constipation, Diarrhea, Blood in stool, Vomiting MUSCULOSKELETAL: Negative for: Muscle or joint pain, stiffness, Joint swelling NEUROLOGIC/PSYCHIATRIC: Negative for: Weakness, Paralysis, Numbness, Tingling, Tremor, Anxiety, Depression, Memory loss SKIN: Negative for: Rash, Itching GENITOURINARY: Negative for: vaginal itching, vaginal discharge, hematuria or dysuria SENSITIVE EXAM: The sensitive examin (more content not included)... [facility] 06-07-2024 History of Present illness Narrative INITIAL OB ASSESSMENT Patient declined maintenance data analyst. HPI: Maryana is a 18 year old G3 P 1 White Female here to establish Obstetrical Care. LMP 02/26/2024 from OB Dating Form. was unplanned but accepted Complaints: No OB History T0 L1 SAB1 IAB0 Ectopic0 Multiple0 Live Births1 Previous history: Prior : never History of 4th degree laceration: No History of shoulder dystocia: No History of Hypertensive disorders including pre-eclampsia or gestational hypertension: Yes History of gestational diabetes: No Patient's Risk Screening for delivery: Have you had a prior vera between 20w and 36w6d? Yes Did you present in active spontaneous labor or have ruptured membranes, or advanced cervical dilation (greater than or equal to 4 cm) or effacement? Yes How many pregnancies have you had before? 2 Did you have a previous baby with a GBS Infection? No Please select all that apply for any prior : N/A MEDICAL/PSYCHOSOCIAL HISTORY: History of hemorrhage or bleeding concerns: No Thyroid Disease: No History of chronic hypertension: No History of pre-existing diabetes: No No results found for: ABORHD No weight on file for this encounter. Last Pap: History of abnormal pap: No Prior treatment for cervical dysplasia: none. Last HPV: History of STDs: None and chlamydia Partner History of STDs: None Did you have a partner with Herpes? No Tobacco use: No E-Cigarette/Vaping Use: No Caffeine use: No Drug use: No Alcohol use: No Multivitamin with Folic acid: Yes Would refuse blood transfusion if medically necessary: No Social Needs: How often does this describe you? I don't have enough money to pay my bills: Never Within the past 12 months, have you worried that your food would run out before you had money to buy more? Never In the past 12 months, has lack of reliable transportation kept you from going to medical appointments or work, or from getting things needed for daily living? Never In the past 12 months, have you had any concerns about having a place to live, or about the condition or quality of your housing? Never Would you like more information on any of the following (please check all that apply)? Social History: Do you have any history of depression, anxiety, PTSD, or other mood problems? No Do you have a history of abuse or trauma that may impact your experience? No Are you currently employed? Yes Depression/Anxiety Screening: denies symptoms of depression. OB Depression and Anxiety Screening- This Encounter (since 06/09/2024) None Genetic Screening: Partner present: No Patient verbalized knowledge of partner family health history: Yes Do you or your partner have any personal or family history of defects not previously discussed: No Do you have history of a complicated by anomaly, genetic condition, or demise: No OB Risk Screening: Completed, positive findings include: Patient answered 'Yes' they had a prior vera between 20w and 36w6d. Marital Status:Co-habitating Partner: Name: Fercho Age: 21 Occupation: [employer] Gender: Male PAST MEDICAL HISTORY Diagnosis Date Contact dermatitis and other eczema due to other specified agent eczema Hx of pre-eclampsia in prior , currently 06/2023 third trimester 06/2023 Positive Chlamydia PCR 12/2022 PAST SURGICAL HISTORY Procedure Laterality Date ADENOIDECTOMY HX 2016 MYRINGOTOMY W TUBE,BILATERAL(2) 2016 Current Outpatient Medications Medication Sig Dispense Refill PN no.[id number] ( GUMMIES) 400 mcg-35 mg- 25 mg-5 mg chew Take 1 Piece by mouth once daily. No current facility-administered medications for this visit. Allergies As of Date: 06/10/2024 Allergen Noted Reaction VENOM-HONEY BEE 10/16/2018 Anaphylaxis and Swelling SULFA (SULFONAMIDE ANTIBIOTICS) 10/16/2018 Hives and Swelling Fully Assessed 06/07/2024 Does patient have penicillin allergy: No REVIEW OF SYSTEMS: GENERAL: Negative for: Fever or Chills HEENT: Negative for: Headache, Impaired Vision, Ringing in Ears, Nosebleeds NECK: Negative for: Swelling, Pain, Stiffness RESPIRATORY: Negative for: Cough, Shortness of breath, Wheezing GASTROINTESTINAL: Negative for: Heartburn, Constipation, Diarrhea, Blood in stool, Vomiting MUSCULOSKELETAL: Negative for: Muscle or joint pain, stiffness, Joint swelling NEUROLOGIC/PSYCHIATRIC: Negative for: Weakness, Paralysis, Numbness, Tingling, Tremor, Anxiety, Depression, Memory loss SKIN: Negative for: Rash, Itching GENITOURINARY: Negative for: vaginal itching, vaginal discharge, hematuria or dysuria SENSITIVE EXAM: The sensitive examination was discussed with the Patient or Patient's Authorized Feather Washer. As applicable, any other physician, advance practice provider, medical student, or other health professional student that will be observing or involved in the sensitive examination for educational or training purposes was discussed with the Patient or Authorized Feather Washer. The Patient or Authorized Feather Washer has agreed to proceed with the sensitive examination. (Sensitive examination includes inspection and/or palpation of the breasts, pelvis, prostate and anorectal regions). PHYSICAL EXAM: LMP 02/26/2024 GENERAL: pleasant in no apparent distress DERMATOLOGY: Normal, without lesions, non-icteric, and non-hirsute NECK: Supple, full range of motion, no adenopathy, and thyroid normal CHEST: Normal inspiratory effort BREAST: soft, non-tender, symmetric, no dominant mass, normal nipple-areolar complex, no lymphadenopathy, and no nipple discharge ABDOMEN: soft, non-tender, and no masses NEURO: alert and oriented x3,exam grossly non-focal PELVIS: External genitalia normal without lesions. Perineal body intact. No vaginal or cervical lesions. Cervix closed. No adnexal masses or tenderness. Clinical Pelvimetry: Pelvimetry clinically assessed as adequate Limited OB ultrasound exam: not performed ASSESSMENT: 18 year old at 15w0d wks gestational age PLAN: 1) Patient oriented to practice. Patient given new OB orientation folder. Discussed nutrition, folic acid supplementation, dietary guidelines, exercise, smoking, alcohol, caffeine, and drug use. Discussed gestational weight gain guidelines. Discussed routine OB labs including STD/HIV. Discussed how to access Your guide to a health and the Pharmacy Services Director. Reviewed midwifery and trading manager services that are available. 2) Screening: Hemoglobin A1C: ordered Baby Aspirin: The patient has been counseled about the potential benefits of low dose aspirin in and our recommendation that this be offered to all patients, regardless of whether they meet the high risk criteria specified above. She Accepts Aneuploidy Screening: Discussed aneuploidy screening, nuchal translucency/first trimester early anatomy ultrasound and NIPT. The risks/benefits and limitations of NIPT/aneuploidy screening were reviewed including the potential for false negative and false positive results. The availability of genetic counseling was reviewed. Information on aneuploidy screening was provided. The patient declines screening Myriad Carrier Screening: Discussed myriad carrier screening. We discussed the availability of professional-society guided carrier screening and reviewed the conditions screened and limitations of screening. The availability of genetic counseling was reviewed. Information on carrier screening was provided. The patient Declines 3) Patient offered option of Virtual Visits. Patient unsure. May consider in future. 4) History of . Induced for preeclampsia, did have to take medication 5) Ob anatomy scan ordered Follow up in 4 weeks or sooner prn. Priscilla Murphy APRN.KELSEY documented in this encounter [facility] 06-19-2023 Plan of care note VSS, fundus firm, bleeding scant, pain well controlled. Cleared for discharge. Zero signs acute distress [facility] 06-19-2023 Miscellaneous Notes VSS, fundus firm, bleeding scant, pain well controlled. Cleared for discharge. Zero signs acute distress This note was copied from a baby's chart. Raimann Machine Operator Note Consultation Reason for Consult: Follow-up inspector hot forgings Name: Valentien Hooks RN IBCLC Maternal Information Has mother breastfed before?: No Exclusive Pump and Bottle Feed: Yes Maternal Assessment Breast Assessment: Other (Comment) (deferred) Nipple Assessment: Other (Comment) (deferred) Infant Assessment Infant Behavior: Deep sleep Feeding Assessment Nutrition Source: Breastmilk, Formula (per mother s request) Feeding Method: Feeding expressed breastmilk Unable to assess infant feeding at this time: Other (Comment) (mother exclusively pumping to bottles only) LATCH TOOL Breast Pump Pump: Hospital grade electric pump, Double breast pumping Frequency: 8-10 times per day (encouraged) Duration: 15-20 minutes per session Units of Volume: mL per session Other OB Tools Patient Follow-up Other OB Documentation Maternal Risk Factors: delivery <37 weeks, Preeclampsia Infant Risk Factors: Prematurity <37 weeks Recommendations/Summary Mother plans to pump only and feed infant her own ebm via the bottle. She stated that her breasts are filling and feeling heavier today. Mother is expressing out good amounts of breast milk at this time. Encouraged mother to continue to pump frequently and often every 2-3 hours in order to stimulate her breasts and build and maintain her milk supply. Mother stated that she is aware of how to properly clean and sterilize the breast pump parts. Provided mother with the printed cdc guidelines on how to keep your breast pump kit clean for reference. Mother has a breast pump for home. Encouraged to call if any questions or concerns arise. This note was copied from a baby's chart. Raimann Machine Operator Note Consultation Maternal Information Maternal Assessment Infant Assessment Feeding Assessment LATCH TOOL Breast Pump Other OB Tools Patient Follow-up Other OB Documentation Recommendations/Summary Mother sleeping and desired to defer consult at this time. Will check back at a later time. The patient's goals for the shift include rest The clinical goals for the shift include stable blood pressures this shift Continuing to monitor blood pressures and promoting rest for patient Raimann Machine Operator Note Consultation Reason for Consult: Follow-up assessment, Late Commercial Door Installer Name: Noemi Ludwig RN, IBCLC Maternal Information Has mother breastfed before?: No Exclusive Pump and Bottle Feed: Yes Maternal Assessment Infant Assessment Behavior: Deep sleep Feeding Assessment Nutrition Source: Breastmilk (and Formula) Feeding Method: Feeding expressed breastmilk, Paced bottle LATCH TOOL Breast Pump Pump: Hospital grade electric pump Frequency: Unable to recall Units of Volume: mL per session Other OB Tools Patient Follow-up Outpatient Follow-up: Recommended Professional - OK to Discharge: Yes Other OB Documentation Maternal Risk Factors: delivery <37 weeks, Preeclampsia Infant Risk Factors: Prematurity <37 weeks Recommendations/Summary Mother states pumping was going well as she got out a lot at once then states next time she pumped she didn't get as much. I encouraged mother to continue to pump 8-10 times in a 24 hour period regardless of how much volume she is pumping out as this will ensure adequate milk production. We discussed that milk supply typically will increase starting today or tomorrow or the next day. I encouraged mother to reach out to outpatient as needed as mother anticipates discharge today. Raimann Machine Operator Note Consultation Reason for Consult: Follow-up inspector hot forgings Name: Noemi Ludwig RN, IBCLC Maternal Information Has mother breastfed before?: No to breast within first 2 hours of ?: No Delayed Due to: Other (Comment) (mother does not want to latch infant) Exclusive Pump and Bottle Feed: Yes Maternal Assessment Assessment Behavior: Light sleep Feeding Assessment Nutrition Source: (formula until can give infant expressed breastmilk (ideally exclusively)) LATCH TOOL Breast Pump Pump: Hospital grade electric pump Frequency: Less than 3 times per day Duration: Initiate phase Breast Shield Size and Type: 24 mm Other OB Tools Patient Follow-up Inpatient Follow-up Needed : Yes Outpatient Follow-up: Recommended Other OB Documentation Maternal Risk Factors: Preeclampsia, delivery <37 weeks Risk Factors: Prematurity <37 weeks Recommendations/Summary Mother states she has been formula feeding , does not want to latch infant, but does have a goal to exclusively pump and provide infant expressed breastmilk via bottle. Mother states she was not feeling well yesterday so only pumped twice and has not yet pumped today. I educated mother on use of pump including initiate program, goal of pumping 8-10 times in a 24 hour period, how to assess for proper flange size, proper cleaning of pump parts as well as milk storage guidelines. We also discussed feeding expressed breastmilk first then formula after, decreasing amount of formula given as expressed breastmilk volume increases. Mother has a breast pump for home use. PI [phone] given to mother as well as outpatient information including the [facility] program. I encouraged mother to call for any questions, concerns or assistance. The patient's goals for the shift include Bonding with infant The clinical goals for the shift include BP >160/110 Patient meets criteria for home monitoring of blood pressure post discharge. Met with patient to assess for availability of home BP monitor. Patient stated she owns home BP monitor. Patient educated on importance of continuing to monitor BP at home, recording BP on home monitoring log and s/sx of when to call her provider. Pt verbalized understanding the above information. Problem: Hypertensive Disorder of (HDP) Goal: Minimal s/sx of HDP and BP<160/110 Outcome: Met Problem: Vaginal or Section Goal: and maternal status remain reassuring during the process Outcome: Met Goal: Prevention of malpresentation/labor dystocia through delivery Outcome: Met Goal: Demonstrates labor coping techniques through delivery Outcome: Met Goal: Minimal s/sx of HDP and BP<160/110 Outcome: Met Goal: No s/sx of infection through recovery Outcome: Met Goal: No s/sx of hemorrhage through recovery Outcome: Met Problem: Antepartum Goal: Maintain as long as maternal and/or condition is stable Outcome: Met Goal: Avoid/minimize constipation Outcome: Met Goal: No decrease in circulation/VTE Outcome: Met Goal: FHR remains reassuring Outcome: Met Goal: Minimize anxiety/maximize coping Outcome: Met Problem: Nausea/Vomiting Goal: Free from nausea/vomiting Outcome: Met Problem: Pain - Adult Goal: Verbalizes/displays adequate comfort level or baseline comfort level Outcome: Met Problem: Safety - Adult Goal: Free from fall injury Outcome: Met The patient's goals for the shift include BP control The clinical goals for the shift include BP<160/110 OB Delivery Note 06/15/2023 Maryana E Stewart 17 y.o. Vaginal, Spontaneous Gestational Age: 36w0d /Para: Quantitative Blood Loss: Admission to Discharge: 250 mL (06/13/2023 11:34 AM - 06/15/2023 6:05 AM) After delivery, patient had continued trickle of bleeding. Cervical sweep was performed with removal of small clots. The fundus was firm. The lower uterine segment was noted to be atonic. 400 mcg of rectal cytotec was given, and bleeding slowed with intervention. Get William [[id number]] Labor Events Sac identifier: Sac 1 Rupture date/time: 06/14/2023 1600 Rupture type: Artificial Fluid color: Clear Fluid odor: None Labor type: Induced Onset of Labor Labor allowed to proceed with plans for an attempted vaginal ?: Yes Induction: Meredith/EASI, Misoprostol First cervical ripening date/time: 06/14/2023511 Induction indications: Hypertensive Disorder of Complications: None Labor Event Times Labor onset date/time: 06/14/2023511 Dilation complete date/time: 06/15/2023335 Start pushing date/time: 06/15/2023336 Labor Length 1st stage: 22h 24m 2nd stage: 0h 46m 3rd stage: 0h 00m Placenta Placenta delivery date/time: 06/15/2023 0422 Placenta removal: Spontaneous Placenta appearance: Intact Placenta disposition: pathology Cord Vessels: 3 vessels Complications: None, Nuchal Nuchal intervention: reduced Nuchal cord description: loose nuchal cord Number of loops: 1 Delayed cord clamping?: Yes Cord blood disposition: Lab Gases sent?: Yes Stem cell collection (by provider): No Lacerations Episiotomy: None Perineal laceration: 1st Perineal laceration repaired?: Yes Other lacerations?: No Repair suture: 3-0 Synthetic Suture Anesthesia Method: Epidural Operative Delivery Forceps attempted?: No Vacuum extractor attempted?: No Shoulder Dystocia Shoulder dystocia present?: No Delivery Time head delivered: 06/15/2023 04:20:00 date/time: 06/15/2023 04:22:00 Delivery type: Vaginal, Spontaneous Complications: None Resuscitation Method: Suctioning, Tactile stimulation, Continuous positive airway pressure (CPAP) Apgars Living status: Living Component Scores: 1 min.: 5 min.: 10 min.: 15 min.: 20 min.: Skin color: 0 0 1 Heart rate: 2 2 2 Reflex irritability: 2 2 2 Muscle tone: 0 0 1 Respiratory effort: 2 2 2 Total: 6 6 8 Apgars assigned by: Fabricio HAWTHORNE RNautomotive glass installer Providers Delivering clinician: Bryan Us MD Provider Role Jennifer Hwang, automotive glass installer Nurse Agnieszka Hawthorne, SOULEYMANE Nursery Nurse Shaina Browning MD Resident Shaina Browning MD PGY1 Associated attestation - Bryan Us MD - 06/16/2023 7:56 PM EST I was present during all critical and canela portions of the procedure(s) and immediately available to furnish services the entire duration. See resident note for details. Patient resting comfortably in bed. Requesting SVE. Has been 2 hours since called active Cervical Exam Dilation: 8 Effacement (%): 90 Station: -1 Method: Manual OB Examiner: Sydney PARK Assessment Movement: Present Mode: External US Baseline Heart Rate (bpm): 130 bpm Baseline Classification: Normal Variability: Moderate (Between 6 and 25 BPM) Pattern: Accelerations FHR Category: Category I Multiple Births: No Decelerations: No Contraction Frequency: 1-4 A/P: IOL - active labor - Titrate pitocin per protocol - Epidural infusing - CEFM; Cat 1 currently - GBS pending, PCN per protocol Shaina Browning MD, PGY-1 Patient resting comfortably in bed. Requesting SVE Cervical Exam Dilation: 4 Effacement (%): 80 Station: -2 Method: Manual OB Examiner: Sydney PARK Assessment Movement: Present Mode: External US Baseline Heart Rate (bpm): 130 bpm Baseline Classification: Normal Variability: Moderate (Between 6 and 25 BPM) Pattern: Accelerations, Variable decelerations FHR Category: Category I Multiple Births: No Decelerations: No Contraction Frequency: 2-4 A/P: IOL - latent labor - s/p AROM at 1600 - Titrate pitocin per protocol - Epidural infusing - CEFM; Cat 1 currently - GBS pending, PCN per protocol To be Discussed with Dr. Malka Browning MD, PGY-1 Housestaff to bedside Cervical Exam Dilation: 3 Effacement (%): 50 Station: -3 Method: Manual OB Examiner: MD Suri Assessment Movement: Present Mode: External US Baseline Heart Rate (bpm): 115 bpm Baseline Classification: Normal Variability: Moderate (Between 6 and 25 BPM) Pattern: Accelerations FHR Category: Category I Multiple Births: No Decelerations: No Contraction Frequency: 1.5-5 AROMd for clear Breann Sears MD PGY1 IOL 17 yo @ 35.6 wga by LMP cw 22 wk us admitted to antepartum for newly-diagnosed pre-eclampsia without severe features. Pt with severe range overnight and decision was made to proceed with induction of labor for pre-eclampsia with severe features. IOL - SVE cl/l/h - Will induce with CRB/Cytotec and monitor for cervical change - Epidural per maternal request sPEC - dx'd based on severe-range BPs not requiring IV antihypertensives - Bps currently mild-range - Off meds currently - Asymptomatic - HELLP labs wnl, P:C 0.33 (06/14) - Start mag @ 2 g/hr wellbeing - PNLs reviewed and wnl. - GBS pending. Start PCN ppx. - CEFM: Cat I currently - Bedside growth AGA, EFW 2782 g - s/p BMZ 06/07-06/[address] Foreign Landaverde MD Labor and Delivery VS and assessments stable since admission documented in this encounter [facility] Work Phone: 06-19-2023 Hospital course Narrative Discharge Summary Admission Date: 06/13/2023 Discharge Date: 06/19/23 Discharge Diagnosis Problem List Items Addressed This Visit * (Principal) Preeclampsia, third trimester - Primary Relevant Medications NIFEdipine ER (Adalat CC) 90 mg 24 hr tablet (Start on 06/20/2023) Other Visit Diagnoses Anemia of mother in , delivered with condition Relevant Medications ferrous sulfate, 325 mg ferrous sulfate, tablet Encounter for initial prescription of contraceptive pills Relevant Medications norethindrone (Micronor) 0.35 mg tablet Maryana William is a 17 y.o. female now and day 4 notable for: - PEC w/o SF -> sPEC (06/14/23), SRBP > 4 hours apart, P:C 0.33, s/p BMZ 06/07-06/08 - anemia, Hgb 9.0 Hospital Course Admitted for PEC w/o SF -> SPEC, IOL in s/o SPEC Delivery Date: 06/15/2023 4:22 AM Delivery type: Vaginal, Spontaneous GA at delivery: 36w0d Outcome: Living Anesthesia during delivery: Epidural Intrapartum complications: None Feeding method: Status: Yes (plan s pump and bottle feed along with formula) Delivery complications: none Contraception at discharge: POPs Complications Requiring Follow-Up SPEC - diagnosed by 2 severe range BPs > 4 hours apart and P:C 0.33 - asymptomatic - HELLP labs negative x 2 - normotensive on Nifedipine XL 90 mg - s/p Mg gtt - BP cuff for home Pertinent Subjective and Physical Exam At Time of Discharge Patient seen at bedside - doing well and no acute events overnight. Pain well-controlled on current regimen, lochia light, voiding spontaneously, passing flatus, ambulating independently, and tolerating PO. General: well appearing, well-nourished, Obstetric: abdomen soft/non-tender, fundus firm below umbilicus, lochia light Skin: No rashes/lesions/erythema Neuro: A/Ox3, conversational GI: +flatus Respiratory: Even and unlabored on RA Extremities: No edema, discoloration, or pain in BLE, equal and palpable DP and PT pulses Psych: appropriate mood and affect Discharge Meds Your medication list START taking these medications Instructions Last Dose Given Next Dose Due ferrous sulfate (325 mg ferrous sulfate) tablet Take 1 tablet by mouth once daily with breakfast. NIFEdipine ER 90 mg 24 hr tablet Commonly known as: Adalat CC Start taking on: June 20, 2023 Take 1 tablet (90 mg) by mouth once daily in the morning. Take before meals. Do not crush, chew, or split. Do not start before June 20, 2023. norethindrone 0.35 mg tablet Commonly known as: Micronor Take 1 tablet (0.35 mg) over 28 days by mouth once daily. CONTINUE taking these medications Instructions Last Dose Given Next Dose Due VITAMIN ORAL Where to Get Your Medications These medications were sent to [facility] [address] [place] [address] Hours: 8:30 AM to 5 PM Mon-Fri ferrous sulfate (325 mg ferrous sulfate) tablet NIFEdipine ER 90 mg 24 hr tablet norethindrone 0.35 mg tablet Test Results Pending At Discharge Pending Labs Order Current Status Surgical Pathology Exam - PLACENTA In process Outpatient Follow-Up Future Appointments Date Time Provider Department Center 07/04/2023 9:40 AM CESAR Bone [place] 07/11/2023 9:00 AM CESAR Bone [facility] order placed to schedule 2-5 days for BP check and 4-6 weeks for routine visit with Alycia Vicente CNM. Vanna Wu PA-C 06/19/23 12:10 PM Vocera documented in this encounter [facility] Work Phone: 06-19-2023 Obstetrics Note This note was copied from a baby's chart. Raimann Machine Operator Note Consultation Reason for Consult: Follow-up inspector [employer] Name: Valentine Hooks RN IBCLC Maternal Information Has mother breastfed before?: No Exclusive Pump and Bottle Feed: Yes Maternal Assessment Breast Assessment: Other (Comment) (deferred) Nipple Assessment: Other (Comment) (deferred) Assessment Infant Behavior: Deep sleep Feeding Assessment Nutrition Source: Breastmilk, Formula (per mother s request) Feeding Method: Feeding expressed breastmilk Unable to assess infant feeding at this time: Other (Comment) (mother exclusively pumping to bottles only) LATCH TOOL Breast Pump Pump: Hospital grade electric pump, Double breast pumping Frequency: 8-10 times per day (encouraged) Duration: 15-20 minutes per session Units of Volume: mL per session Other OB Tools Patient Follow-up Other OB Documentation Maternal Risk Factors: delivery <37 weeks, Preeclampsia Risk Factors: Prematurity <37 weeks Recommendations/Summary Mother plans to pump only and feed her own ebm via the bottle. She stated that her breasts are filling and feeling heavier today. Mother is expressing out good amounts of breast milk at this time. Encouraged mother to continue to pump frequently and often every 2-3 hours in order to stimulate her breasts and build and maintain her milk supply. Mother stated that she is aware of how to properly clean and sterilize the breast pump parts. Provided mother with the printed cdc guidelines on how to keep your breast pump kit clean for reference. Mother has a breast pump for home. Encouraged to call if any questions or concerns arise. [facility] 06-19-2023 Obstetrics Note This note was copied from a baby's chart. Raimann Machine Operator Note Consultation Maternal Information Maternal Assessment Assessment Feeding Assessment LATCH TOOL Breast Pump Other OB Tools Patient Follow-up Other OB Documentation Recommendations/Summary Mother sleeping and desired to defer consult at this time. Will check back at a later time. [facility] Work Phone: 06-18-2023 History of Present illness Narrative Progress Note Assessment/Plan Maryana William is a 17 y.o., , who delivered at 36w0d gestation by . Now PPD#3 s/p Vaginal, Spontaneous on 06/15/2023 - continue routine care - pain well controlled on po medications - dvt risk score DVT Score: 5 , ppx with lovenox - Hgb: Results from last 7 days Lab Units 06/15/23 0838 06/14/23 0608 06/13/23 1211 HEMOGLOBIN g/dL 10.2* 9.0* 9.1* sPEC - SRBP > 4 hours apart, P:C 0.33 - HELLP labs neg x2 - Persistent low mild range, asymptomatic - Nifed 30 this AM (06/18) with mild range BP --> additional 30, persistent mild--> additional 30 this PM (06/18) for total of 90mg today (06/18) - Continue Nifed 90mg daily - Continue to monitor BP Maternal Well-Being - emotional support provided Annabella Feeding - /pumping encouraged; consult prn Contraception - POPs Dispo - Anticipate DC PPD3 pending BP control. - The signs and symptoms of PEC were reviewed with the patient, including unrelenting headache, vision changes/blurred vision, and pain underneath the right breast. - BP cuff for home for checking BP BID. Pt instructed to call primary OB if SBP > 160 or DBP > 110. On discharge, follow up with primary OB, - 2-5 days for BP check - 4-6 week for post- visit Principal Problem: Preeclampsia, third trimester Problems (from 01/13/23 to present) Problem Noted Resolved Preeclampsia, third trimester 06/13/2023 by Vanessa Hilliard MD No Priority: Medium Elevated blood pressure reading in office without diagnosis of hypertension 06/07/2023 by CESAR Phelps No Priority: Medium Overview Addendum 06/07/2023 6:04 PM by CESAR Phelps 34.6 wks elevated BP 140/90. Normotensive and asymptomatic in triage; PCR 0.33 Betamethasone #1 given 06/07/23 MFM referral placed Proteinuria affecting in third trimester 06/07/2023 by CESAR Phelps No Priority: Medium Overview Signed 06/07/2023 6:03 PM by CESAR Phelps PCR 0.33 on 06/07/23 Encounter for supervision of normal first in second trimester 03/21/2023 by CESAR Bone No Priority: Medium Overview Addendum 06/07/2023 4:21 PM by CESAR De Leon Initial BMI 24 rrNIPS Declines COVID and Flu vaccines S/p TDAP [ ] RSV [ ] Contraception 34.6 wks elevated BP 140/90. Hospital course: preeclampsia/eclampsia Vaginal Patient is not breastfeedingThe patient's blood type is A POS. Rhogam is not indicated. Subjective Her pain is well controlled with current medications She is passing flatus She is ambulating well She is tolerating a Adult diet Regular She reports no breast or nursing problems She denies emotional concerns today Her plan for contraception is oral contraceptives Patient resting in bed in NAD holding baby. Denies MART, SOB, RUQ pain, vision changes. Objective Allergies: Bee venom protein (honey bee) and Sulfa (sulfonamide antibiotics) Last Vitals: Temp Pulse Resp BP MAP Pulse Ox 36.9 C (98.4 F) 94 16 (!) 143/93 (RN aware) 97 % Vitals Min/Max Last 24 Hours: Temp Min: 36 C (96.8 F) Max: 37.1 C (98.8 F) Pulse Min: 67 Max: 94 Resp Min: 16 Max: 18 BP Min: 134/90 Max: 157/98 Intake/Output: No intake or output data in the 24 hours ending 06/18/23 1818 Physical Exam: General: well appearing, well nourished, Obstetric: fundus firm below umbilicus, lochia light Skin: Warm, dry; no rashes/lesions/erythema Breast: No masses, nipple discharge Neuro: A/Ox3, conversational, no gross motor deficit GI: no distension, appropriately tender, soft Respiratory: Even and unlabored on RA Cardiovascular: Trace BLE edema; No erythema, warmth, tenderness Psych: appropriate mood and affect Lab Data: Labs in chart were reviewed. Progress Note Assessment/Plan Maryana William is a 17 y.o., , who delivered at 36w0d gestation by . Now PPD#2 s/p Vaginal, Spontaneous on 06/15/2023 - continue routine care - pain well controlled on po medications - dvt risk score DVT Score: 5 , ppx with lovenox - Hgb: Results from last 7 days Lab Units 06/15/23 0838 06/14/23 0608 06/13/23 1211 HEMOGLOBIN g/dL 10.2* 9.0* 9.1* sPEC - SRBP > 4 hours apart, P:C 0.33 - HELLP labs neg x2 - Normotensive, asymptomatic - Continue Nifed 30mg - BP cuff for home Maternal Well-Being - emotional support provided Annabella Feeding - /pumping encouraged; consult prn Contraception - POPs Dispo - Anticipate DC PPD3 pending BP control. - The signs and symptoms of PEC were reviewed with the patient, including unrelenting headache, vision changes/blurred vision, and pain underneath the right breast. - BP cuff for home for checking BP BID. Pt instructed to call primary OB if SBP > 160 or DBP > 110. On discharge, follow up with primary OB, - 2-5 days for BP check - 4-6 week for post- visit Principal Problem: Preeclampsia, third trimester Problems (from 01/13/23 to present) Problem Noted Resolved Preeclampsia, third trimester 06/13/2023 by Vanessa Hilliard MD No Priority: Medium Elevated blood pressure reading in office without diagnosis of hypertension 06/07/2023 by CESAR Phelps No Priority: Medium Overview Addendum 06/07/2023 6:04 PM by CESAR Phelps 34.6 wks elevated BP 140/90. Normotensive and asymptomatic in triage; PCR 0.33 Betamethasone #1 given 06/07/23 MFM referral placed Proteinuria affecting in third trimester 06/07/2023 by CESAR Phelps No Priority: Medium Overview Signed 06/07/2023 6:03 PM by CESAR Phelps PCR 0.33 on 06/07/23 Encounter for supervision of normal first in second trimester 03/21/2023 by Alycia R Schwochow, [employer]-CNM No Priority: Medium Overview Addendum 06/07/2023 4:21 PM by Elsa Kelly, [employer]-SUSUM Initial BMI 24 rrNIPS Declines COVID and Flu vaccines S/p TDAP [ ] RSV [ ] Contraception 34.6 wks elevated BP 140/90. Hospital course: preeclampsia/eclampsia Vaginal Patient is not breastfeedingThe patient's blood type is A POS. Rhogam is not indicated. Subjective Her pain is well controlled with current medications She is passing flatus She is ambulating well She is tolerating a Adult diet Regular She reports no breast or nursing problems She denies emotional concerns today Her plan for contraception is oral contraceptives Patient resting in bed in NAD. Denies MART, SOB, RUQ pain, vision changes. States light lochia and voiding spontaneously. Objective Allergies: Bee venom protein (honey bee) and Sulfa (sulfonamide antibiotics) Last Vitals: Temp Pulse Resp BP MAP Pulse Ox 36.7 C (98.1 F) 66 16 130/85 95 % Vitals Min/Max Last 24 Hours: Temp Min: 36.4 C (97.5 F) Max: 36.7 C (98.1 F) Pulse Min: 60 Max: 85 Resp Min: 16 Max: 18 BP Min: 124/85 Max: 131/85 Intake/Output: No intake or output data in the 24 hours ending 06/17/23 1751 Physical Exam: General: well appearing, well nourished, Obstetric: fundus firm below umbilicus, lochia light Skin: Warm, dry; no rashes/lesions/erythema Breast: No masses, nipple discharge Neuro: A/Ox3, conversational, no gross motor deficit GI: no distension, appropriately tender, soft Respiratory: Even and unlabored on RA Cardiovascular: Trace BLE edema; No erythema, warmth Psych: appropriate mood and affect Lab Data: Labs in chart were reviewed. Progress Note Assessment/Plan Maryana William is a 17 y.o., , who delivered at 36w0d gestation Now PPD#1 s/p Vaginal, Spontaneous on 06/15/2023 - continue routine care - pain well controlled on po medications - dvt risk score DVT Score: 5 , ppx with lovenox - Hgb: Results from last 7 days Lab Units 06/15/23 0838 06/14/23 0608 06/13/23 1211 HEMOGLOBIN g/dL 10.2* 9.0* 9.1* sPEC - SRBP > 4 hours apart, P:C 0.33 - HELLP labs neg x2 - nifed 30 - largely normotensive and asx today Maternal Well-Being - emotional support provided Annabella Feeding - /pumping encouraged; consult prn Contraception - education provided - POPs Dispo - Anticipate DC PPD3 pending BP control. - The signs and symptoms of PEC were reviewed with the patient, including unrelenting headache, vision changes/blurred vision, and pain underneath the right breast. - BP cuff for home for checking BP BID. Pt instructed to call primary OB if SBP > 160 or DBP > 110. Follow up in 2-5 days for BP check with your OB provider. and Follow up in 4-6 wk for visit with your OB provider. Tyrell Kirby PA-C Pager [phone] Principal Problem: Preeclampsia, third trimester Problems (from 01/13/23 to present) Problem Noted Resolved Preeclampsia, third trimester 06/13/2023 by Vanessa Hilliard MD No Priority: Medium Elevated blood pressure reading in office without diagnosis of hypertension 06/07/2023 by CESAR Phelps No Priority: Medium Overview Addendum 06/07/2023 6:04 PM by CESAR Phelps 34.6 wks elevated BP 140/90. Normotensive and asymptomatic in triage; PCR 0.33 Betamethasone #1 given 06/07/23 MFM referral placed Proteinuria affecting in third trimester 06/07/2023 by CESAR Phelps No Priority: Medium Overview Signed 06/07/2023 6:03 PM by CESAR Phelps PCR 0.33 on 06/07/23 Encounter for supervision of normal first in second trimester 03/21/2023 by CESAR Bone No Priority: Medium Overview Addendum 06/07/2023 4:21 PM by CESAR De Leon Initial BMI 24 rrNIPS Declines COVID and Flu vaccines S/p TDAP [ ] RSV [ ] Contraception 34.6 wks elevated BP 140/90. Hospital course: preeclampsia/eclampsia Vaginal Patient is not breastfeedingThe patient's blood type is A POS. The baby's blood type is pending . Rhogam is not indicated. Subjective Her pain is well controlled with current medications She is passing flatus She is ambulating well She is tolerating a Adult diet Regular She reports no breast or nursing problems She denies emotional concerns today Her plan for contraception is oral contraceptives Pt seen at the bedside in NAD. Doing well, denies pain. Denies MART, N/V, RUQ pain, vision changes. Denies CP, SOB, calf pain, fever, passage of large clots. Objective Allergies: Bee venom protein (honey bee) and Sulfa (sulfonamide antibiotics) Last Vitals: Temp Pulse Resp BP MAP Pulse Ox 36.5 C (97.7 F) 64 18 120/84 95 % Vitals Min/Max Last 24 Hours: Temp Min: 36.3 C (97.3 F) Max: 36.9 C (98.4 F) Pulse Min: 64 Max: 95 Resp Min: 12 Max: 20 BP Min: 110/72 Max: 143/104 Intake/Output: Intake/Output Summary (Last 24 hours) at 06/16/2023 1802 Last data filed at 06/16/2023 1700 Gross per 24 hour Intake 1904.17 ml Output 1900 ml Net 4.17 ml Physical Exam: General: Examination reveals a well developed, well nourished, female, in no acute distress. She is alert and cooperative. HEENT: External ears normal. Nose normal, no erythema or discharge. Neck: supple, no significant adenopathy. Lungs: breathing even and unlabored Cardiac: warm and well perfused . Fundus: firm and below umbilicus. Lochia light Extremities: no redness or tenderness in the calves or thighs, no edema. Neurological: alert, oriented, normal speech, no focal findings or movement disorder noted. Psychological: awake and alert; oriented to person, place, and time. Skin: no rashes or lesions Lab Data: Labs in chart were reviewed. Progress Note Assessment/Plan Maryana William is a 17 y.o., , PPD 0 from a at 36w0d. First degree laceration repaired and QBL was 250 ml. sPEC: - Asx, normotensive to mild range - Mg until 05 am 06/16 - UOP adequate - on no meds - HELLP labs negx2 Maternal well being: - Bonding with the baby - No emotional concerns - and pumping - Lochia light - Good pain control - tolerating diet - Preop Hb: 9.0, repeat CBC - Contraception: to be discussed at PP visit at 6 wks Seen and d/w Dr. Joslyn Sears MD PGY1 Objective Allergies: Bee venom protein (honey bee) and Sulfa (sulfonamide antibiotics) Last Vitals: Temp Pulse Resp BP MAP Pulse Ox 37.2 C (99 F) 86 16 136/75 (!) 95 % Vitals Min/Max Last 24 Hours: Temp Min: 36.1 C (97 F) Max: 37.2 C (99 F) Pulse Min: 67 Max: 123 Resp Min: 16 Max: 18 BP Min: 112/60 Max: 168/96 Intake/Output: Intake/Output Summary (Last 24 hours) at 06/15/2023 0809 Last data filed at 06/15/2023 0736 Gross per 24 hour Intake 3005.92 ml Output 3530 ml Net -524.08 ml Physical Exam: General: no acute distress HEENT: normocephalic, atraumatic Heart: warm and well perfused, RRR Lungs: no increased WOB, CTAB Abd: soft, nontender Extremities: moving all extremities Neuro: awake and conversant, DTR +/+ Psych: appropriate mood and affect Uterus firm, fundus below umbilicus Associated attestation - Evelyn Goodson MD - 06/15/2023 8:41 AM EST I saw and evaluated the patient. I personally obtained the canela and critical portions of the history and physical exam or was physically present for canela and critical portions performed by the resident/fellow. I reviewed the resident/fellow's documentation and discussed the patient with the resident/fellow. I agree with the resident/fellow's medical decision making as documented in the note. PPD#0 status post in setting of sPEC. Asx and BP well controlled. Continue Mg for 24 hours. Evelyn Goodson MD Intrapartum Progress Note Assessment/Plan Maryana William is a 17 y.o. at 35w6d. by LMP c/w undergoing IOL for preeclampsia with severe features. IOL - s/p ripening with CRB and cyto - s/p AROM at 1600 - Continue to titrate Pitocin per protocol - Hgb 9.0 - Epidural infusing - PPBC: deferred to PP visit sPEC: - dx'd based on severe-range BPs occurring > 4 hrs apart - has not required IV antihypertensives - Currently normotensive to mild range without medications - asxs - HELLP lab within normal limits x2, P:C 0.33 - Mg wellbeing: - CEFM, currently Cat I - GBS unknown, continue PCN per protocol - BMZ given 06/07-06/08 Massiel Marvin [facility] MS-3 Patient seen and evaluated with medical student. I agree with the assessment above, and have made edits within text. Patient to be discussed with Dr. Malka Browning, PGY-1 Subjective Maryana is feeling well today, no acute concerns. Asymptomatic. Explicitly denies headache and vision changes. Denies significant pain. Objective Last Vitals: Temp Pulse Resp BP MAP Pulse Ox 36.1 C (97 F) 71 17 115/61 98 % Vitals Min/Max Last 24 Hours: Temp Min: 36 C (96.8 F) Max: 36.7 C (98.1 F) Pulse Min: 56 Max: 123 Resp Min: 16 Max: 18 BP Min: 112/70 Max: 168/96 Intake/Output: Intake/Output Summary (Last 24 hours) at 06/14/20232027 Last data filed at 06/14/20231931 Gross per 24 hour Intake 2227.87 ml Output 1900 ml Net 327.87 ml Physical Examination: General: Lying in bed in NAD Obstetric: FHT: 125 bpm, moderate variability, + accels, - decels SVE: 3/50/-3 Kalama: q2-5 min cx Skin: No rashes/lesions/erythema Neuro: Awake, alert, conversational CV: Regular rate Respiratory: Even and unlabored on RA Extremities: Full ROM Psych: appropriate mood and affect Lab Review: Lab Results Component Value Date WBC 12.0 (H) 06/14/2023 HGB 9.0 (L) 06/14/2023 HCT 28.6 (L) 06/14/2023 PLT 316 06/14/2023 Lab Results Component Value Date GLUCOSE 76 06/14/2023 NA 138 06/14/2023 K 4.3 06/14/2023 CL 106 06/14/2023 CO2 23 06/14/2023 ANIONGAP 13 06/14/2023 BUN 10 06/14/2023 CREATININE 0.59 06/14/2023 EGFR >90 06/14/2023 CALCIUM 8.6 06/14/2023 ALBUMIN 3.1 (L) 06/14/2023 PROT 6.0 (L) 06/14/2023 ALKPHOS 196 (H) 06/14/2023 ALT 15 06/14/2023 AST 19 06/14/2023 BILITOT 0.3 06/14/2023 Lab Results Component Value Date UTPCR 0.33 (H) 06/13/2023 Associated attestation - Bryan Ace MD - 06/14/2023 10:20 PM EST I saw and evaluated the patient. I personally obtained the canela and critical portions of the history and physical exam or was physically present for canela and critical portions performed by the resident/fellow. I reviewed the resident/fellow's documentation and discussed the patient with the resident/fellow. I agree with the resident/fellow's medical decision making as documented in the note. Intrapartum Progress Note Assessment/Plan Maryana William is a 17 y.o. at 35w6d. COTY: 07/13/2023, by Last Menstrual Period, undergoing induction of labor for severe preeclampsia IOL - admission SVE cl/l/h - CRB placed at 0500, remains in place - cytotec #2 placed by this provider at 0815 - Epidural per maternal request sPEC - dx'd based on multiple severe-range BPs occurring > 4 hrs apart - has not required IV antihypertensive therapy as BP values resolve to mild range on recheck - BP values currently mild-range - Off meds currently - Asymptomatic - HELLP labs wnl, P:C 0.33 (06/14) - continue mag @ 2 g/hr IUP - GBS pending. Continue PCN ppx. - FHT Cat I currently, continue EFM for sPEC, prematurity, cytotec - Bedside growth AGA, EFW 2782 g - s/p BMZ 06/07-06/08 Principal Problem: Preeclampsia, third trimester Problems (from 01/13/23 to present) Problem Noted Resolved Preeclampsia, third trimester 06/13/2023 by Vanessa Hilliard MD No Priority: Medium Elevated blood pressure reading in office without diagnosis of hypertension 06/07/2023 by CESAR Phelps No Priority: Medium Overview Addendum 06/07/2023 6:04 PM by CESAR Phelps 34.6 wks elevated BP 140/90. Normotensive and asymptomatic in triage; PCR 0.33 Betamethasone #1 given 06/07/23 MFM referral placed Proteinuria affecting in third trimester 06/07/2023 by CESAR Phelps No Priority: Medium Overview Signed 06/07/2023 6:03 PM by CESAR Phelps PCR 0.33 on 06/07/23 Encounter for supervision of normal first in second trimester 03/21/2023 by CESAR Bone No Priority: Medium Overview Addendum 06/07/2023 4:21 PM by CESAR De Leon Initial BMI 24 rrNIPS Declines COVID and Flu vaccines S/p TDAP [ ] RSV [ ] Contraception 34.6 wks elevated BP 140/90. Subjective Reports feeling well and denies PEC sx. Does endorse pain with ctx and would like another dose of morphine. Objective Last Vitals: Temp Pulse Resp BP MAP Pulse Ox 36.2 C (97.2 F) 98 18 134/87 98 % Vitals Min/Max Last 24 Hours: Temp Min: 36 C (96.8 F) Max: 37.2 C (99 F) Pulse Min: 56 Max: 113 Resp Min: 16 Max: 18 BP Min: 112/70 Max: 166/92 Intake/Output: Intake/Output Summary (Last 24 hours) at 06/14/2023 1327 Last data filed at 06/14/2023 1225 Gross per 24 hour Intake 1039.51 ml Output 1300 ml Net -260.49 ml Physical Examination: GENERAL: Examination reveals a well developed, well nourished, gravid female in no acute distress. She is alert and cooperative. HEENT: External ears normal. Nose normal, no erythema or discharge. Mouth and throat clear. NECK: supple with no apparent injury LUNGS: normal effort FHR is 110 bpm , with moderate variability and Accelerations present, decelerations absent Kalama reading: q 2-5 mins VAGINA: crb remains in place on sve, cytotec # 2 placed at this time NEUROLOGICAL: alert, oriented, normal speech, no focal findings or movement disorder noted PSYCHOLOGICAL: awake and alert; oriented to person, place, and time Lab Review: Lab Results Component Value Date WBC 12.0 (H) 06/14/2023 HGB 9.0 (L) 06/14/2023 HCT 28.6 (L) 06/14/2023 PLT 316 06/14/2023 Lab Results Component Value Date GLUCOSE 76 06/14/2023 NA 138 06/14/2023 K 4.3 06/14/2023 CL 106 06/14/2023 CO2 23 06/14/2023 ANIONGAP 13 06/14/2023 BUN 10 06/14/2023 CREATININE 0.59 06/14/2023 EGFR >90 06/14/2023 CALCIUM 8.6 06/14/2023 ALBUMIN 3.1 (L) 06/14/2023 PROT 6.0 (L) 06/14/2023 ALKPHOS 196 (H) 06/14/2023 ALT 15 06/14/2023 AST 19 06/14/2023 BILITOT 0.3 06/14/2023 L&D Attending Progress Note Patient admitted with preE without severe features. Now with an additional severe range BP, will proceed with IOL given preE with SF. She has not had growth measurements since 22 weeks so growth will be performed prior to IOL. We discussed the need to start magnesium for maternal seizure prophylaxis & will repeat preE labs at this time. Discussed possible methods for IOL and likely need for balloon. Of note, after leaving the patient's room, her mother followed me into the [place] to discuss concern regarding magnesium. Reports that Maryana's sister also had preE in February and had a seizure/ stroke following initiation of magnesium. Discussed that while it's impossible to know for certain, especially without records- the seizure was most likely related to her diagnosis of preE and not the initiation of magnesium. Will monitor closely. 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 Commercial Door Installer Name: Noemi Ludwig RN, IBCLC Maternal Information Has mother breastfed before?: No Exclusive Pump and Bottle Feed: Yes Maternal Assessment Infant Assessment Behavior: Deep sleep Feeding Assessment Nutrition Source: Breastmilk (and Formula) Feeding Method: Feeding expressed breastmilk, Paced bottle LATCH TOOL Breast Pump Pump: Hospital grade electric pump Frequency: Unable to recall Units of Volume: mL per session Other OB Tools Patient Follow-up Outpatient Follow-up: Recommended Professional - OK to Discharge: Yes Other OB Documentation Maternal Risk Factors: delivery <37 weeks, Preeclampsia Risk Factors: Prematurity <37 weeks Recommendations/Summary Mother states pumping was going well as she got out a lot at once then states next time she pumped she didn't get as much. I encouraged mother to continue to pump 8-10 times in a 24 hour period regardless of how much volume she is pumping out as this will ensure adequate milk production. We discussed that milk supply typically will increase starting today or tomorrow or the next day. I encouraged mother to reach out to outpatient as needed as mother anticipates discharge today. [facility] 06-16-2023 Obstetrics Note Raimann Machine Operator Note Consultation Reason for Consult: Follow-up inspector hot forgings Name: Noemi Ludwig RN, IBCLC Maternal Information Has mother breastfed before?: No to breast within first 2 hours of ?: No Delayed Due to: Other (Comment) (mother does not want to latch infant) Exclusive Pump and Bottle Feed: Yes Maternal Assessment Infant Assessment Behavior: Light sleep Feeding Assessment Nutrition Source: (formula until can give expressed breastmilk (ideally exclusively)) LATCH TOOL Breast Pump Pump: [employer] grade electric pump Frequency: Less than 3 times per day Duration: Initiate phase Breast Shield Size and Type: 24 mm Other OB Tools Patient Follow-up Inpatient Follow-up Needed : Yes Outpatient Follow-up: Recommended Other OB Documentation Maternal Risk Factors: Preeclampsia, delivery <37 weeks Infant Risk Factors: Prematurity <37 weeks Recommendations/Summary Mother states she has been formula feeding infant, does not want to latch , but does have a goal to exclusively pump and provide infant expressed breastmilk via bottle. Mother states she was not feeling well yesterday so only pumped twice and has not yet pumped today. I educated mother on use of pump including initiate program, goal of pumping 8-10 times in a 24 hour period, how to assess for proper flange size, proper cleaning of pump parts as well as milk storage guidelines. We also discussed feeding infant expressed breastmilk first then formula after, decreasing amount of formula given as expressed breastmilk volume increases. Mother has a breast pump for home use. PI 123 given to mother as well as outpatient information including the [facility] program. I encouraged mother to call for any questions, concerns or assistance. [facility] Work Phone: 06-15-2023 Plan of care note The patient's goals for the shift include Bonding with The clinical goals for the shift include BP >160/110 [facility] 06-15-2023 Note Formatting of this n ote might be different from the original. Patient meets criteria for home monitoring of blood pressure post discharge. Met with patient to assess for availability of home BP monitor. Patient stated she owns home BP monitor. Patient educated on importance of continuing to monitor BP at home, recording BP on home monitoring log and s/sx of when to call her provider. Pt verbalized understanding the above information. [facility] 06-15-2023 Hospital Discharge instructions Jackelin Hutchison RN - 06/15/2023 8:21 AM EST Post Warning Signs Any woman can have complications after the of a baby including a blood clot, a heart problem, hypertensive disorder/eclampsia, depression, hemorrhage, or infection. Notify all providers of your delivery date up to one year after .* Call 911 or go to nearest emergency room right away if you have: PAIN or pressure in chest; OBSTRUCTED breathing or shortness of breath; SEIZURES; THOUGHTS of hurting yourself or your baby; heart palpitations/racing; change in alertness/confusion. Call your provider if you have: BLEEDING, soaking through a pad/hour, or blood clots the size of an egg or bigger; INCISION (episiotomy stitches or site) that is not healing (increased redness, pain, drainage/pus, or separation); RED or swollen leg/calf that is painful or warm to touch, especially in one leg more than the other; TEMPERATURE of 100.4 F or higher or chills; HEADACHE that does not get better with medicine, rest or hydration, or bad headache with vision changes like spots or flashing lights; increased swelling of face, hands or legs; severe cramps or upper right belly pain; red or swollen breast that is painful or warm to touch; an unusual, foul odor from your vaginal discharge; pain, burning, or difficulty during urination; severe constipation (more than 5 days); feelings of depression (such as depressed mood, loss of interest in enjoyable things, unable to care for yourself, trouble sleeping, lack of appetite, or feeling worthless). If you can t reach your provider or symptoms worsen, call 911 or go to nearest emergency room. *Information obtained from [facility] s: Save Your Life: Get Care for These POST- Warning Signs Pacifier Use The [place] [employer] recommends that pacifier use is best avoided during the initiation of and used only after is well established. In some infants, early pacifier use may interfere with establishment of good practices, whereas in others it may indicate the presence of a problem that requires intervention. Use of a pacifier may cause problems with latching, and lead to decreased milk supply by missing feeding opportunities. Pacifiers may be used during painful procedures, but are not otherwise recommended while the infant is learning to breastfeed. documented in this encounter [facility] Work Phone: 06-15-2023 Plan of care note Problem: Hypertensive Disorder of (HDP) Goal: Minimal s/sx of HDP and BP<160/110 Outcome: Met Problem: Vaginal or Section Goal: and maternal status remain reassuring during the process Outcome: Met Goal: Prevention of malpresentation/labor dystocia through delivery Outcome: Met Goal: Demonstrates labor coping techniques through delivery Outcome: Met Goal: Minimal s/sx of HDP and BP<160/110 Outcome: Met Goal: No s/sx of infection through recovery Outcome: Met Goal: No s/sx of hemorrhage through recovery Outcome: Met Problem: Antepartum Goal: Maintain as long as maternal and/or condition is stable Outcome: Met Goal: Avoid/minimize constipation Outcome: Met Goal: No decrease in circulation/VTE Outcome: Met Goal: FHR remains reassuring Outcome: Met Goal: Minimize anxiety/maximize coping Outcome: Met Problem: Nausea/Vomiting Goal: Free from nausea/vomiting Outcome: Met Problem: Pain - Adult Goal: Verbalizes/displays adequate comfort level or baseline comfort level Outcome: Met Problem: Safety - Adult Goal: Free from fall injury Outcome: Met The patient's goals for the shift include BP control The clinical goals for the shift include BP<160/110 [facility] 06-15-2023 Labor and delivery summary note OB Delivery Note 06/15/2023 Maryana William 17 y.o. Vaginal, Spontaneous Gestational Age: 36w0d /Para: Quantitative Blood Loss: Admission to Discharge: 250 mL (06/13/2023 11:34 AM - 06/15/2023 6:05 AM) After delivery, patient had continued trickle of bleeding. Cervical sweep was performed with removal of small clots. The fundus was firm. The lower uterine segment was noted to be atonic. 400 mcg of rectal cytotec was given, and bleeding slowed with intervention. Get William [[id number]] Labor Events Sac identifier: Sac 1 Rupture date/time: 06/14/2023 1600 Rupture type: Artificial Fluid color: Clear Fluid odor: None Labor type: Induced Onset of Labor Labor allowed to proceed with plans for an attempted vaginal ?: Yes Induction: Meredith/EASI, Misoprostol First cervical ripening date/time: 06/14/2023511 Induction indications: Hypertensive Disorder of Complications: None Labor Event Times Labor onset date/time: 06/14/2023511 Dilation complete date/time: 06/15/2023335 Start pushing date/time: 06/15/2023336 Labor Length 1st stage: 22h 24m 2nd stage: 0h 46m 3rd stage: 0h 00m Placenta Placenta delivery date/time: 06/15/2023 042 Placenta removal: Spontaneous Placenta appearance: Intact Placenta disposition: pathology Cord Vessels: 3 vessels Complications: None, Nuchal Nuchal intervention: reduced Nuchal cord description: loose nuchal cord Number of loops: 1 Delayed cord clamping?: Yes Cord blood disposition: Lab Gases sent?: Yes Stem cell collection (by provider): No Lacerations Episiotomy: None Perineal laceration: 1st Perineal laceration repaired?: Yes Other lacerations?: No Repair suture: 3-0 Synthetic Suture Anesthesia Method: Epidural Operative Delivery Forceps attempted?: No Vacuum extractor attempted?: No Shoulder Dystocia Shoulder dystocia present?: No Annabella Delivery Time head delivered: 06/15/2023 04:20:00 date/time: 06/15/2023 04:22:00 Delivery type: Vaginal, Spontaneous Complications: None Resuscitation Method: Suctioning, Tactile stimulation, Continuous positive airway pressure (CPAP) Apgars Living status: Living Component Scores: 1 min.: 5 min.: 10 min.: 15 min.: 20 min.: Skin color: 0 0 1 Heart rate: 2 2 2 Reflex irritability: 2 2 2 Muscle tone: 0 0 1 Respiratory effort: 2 2 2 Total: 6 6 8 Apgars assigned by: Fabricio HAWTHORNE automotive glass installer Providers Delivering clinician: Bryan Us MD Provider Role Jennifer Hwang RN Delivery Nurse Agnieszka Hawthorne, RN Nursery Nurse Shaina Browning MD Resident Shaina Browning MD PGY1 Associated attestation - Bryan Us MD - 06/16/2023 7:56 PM EST I was present during all critical and canela portions of the procedure(s) and immediately available to furnish services the entire duration. See resident note for details. [facility] Work Phone: 06-15-2023 Note Formatting of this n ote might be different from the original. Patient resting comfortably in bed. Requesting SVE. Has been 2 hours since called active Cervical Exam Dilation: 8 Effacement (%): 90 Station: -1 Method: Manual OB Examiner: Sydney PARK Assessment Movement: Present Mode: External US Baseline Heart Rate (bpm): 130 bpm Baseline Classification: Normal Variability: Moderate (Between 6 and 25 BPM) Pattern: Accelerations FHR Category: Category I Multiple Births: No Decelerations: No Contraction Frequency: 1-4 A/P: IOL - active labor - Titrate pitocin per protocol - Epidural infusing - CEFM; Cat 1 currently - GBS pending, PCN per protocol Shaina Browning MD, PGY-1 [facility] Work Phone: 06-14-2023 Note Formatting of this n ote might be different from the original. Patient resting comfortably in bed. Requesting SVE Cervical Exam Dilation: 4 Effacement (%): 80 Station: -2 Method: Manual OB Examiner: Sydney PARK Assessment Movement: Present Mode: External US Baseline Heart Rate (bpm): 130 bpm Baseline Classification: Normal Variability: Moderate (Between 6 and 25 BPM) Pattern: Accelerations, Variable decelerations FHR Category: Category I Multiple Births: No Decelerations: No Contraction Frequency: 2-4 A/P: IOL - latent labor - s/p AROM at 1600 - Titrate pitocin per protocol - Epidural infusing - CEFM; Cat 1 currently - GBS pending, PCN per protocol To be Discussed with Dr. Malka Browning MD, PGY-1 [facility] Work Phone: 06-14-2023 Note Formatting of this n ote might be different from the original. Housestaff to bedside Cervical Exam Dilation: 3 Effacement (%): 50 Station: -3 Method: Manual OB Examiner: MD Suri Assessment Movement: Present Mode: External US Baseline Heart Rate (bpm): 115 bpm Baseline Classification: Normal Variability: Moderate (Between 6 and 25 BPM) Pattern: Accelerations FHR Category: Category I Multiple Births: No Decelerations: No Contraction Frequency: 1.5-5 AROMd for clear Breann Sears MD PGY1 [facility] Work Phone: 06-14-2023 Note Formatting of this n ote might be different from the original. IOL 17 yo @ 35.6 wga by LMP cw 22 wk us admitted to antepartum for newly-diagnosed pre-eclampsia without severe features. Pt with severe range overnight and decision was made to proceed with induction of labor for pre-eclampsia with severe features. IOL - SVE cl/l/h - Will induce with CRB/Cytotec and monitor for cervical change - Epidural per maternal request sPEC - dx'd based on severe-range BPs not requiring IV antihypertensives - Bps currently mild-range - Off meds currently - Asymptomatic - HELLP labs wnl, P:C 0.33 (06/14) - Start mag @ 2 g/hr wellbeing - PNLs reviewed and wnl. - GBS pending. Start PCN ppx. - CEFM: Cat I currently - Bedside growth AGA, EFW 2782 g - s/p BMZ 06/07-06/[address] Foreign Landaverde MD Labor and Delivery [facility] Work Phone: 06-13-2023 Plan of care note VS and assessments stable since admission [facility] Work Phone: 06-13-2023 History and physical note Obstetrical Admission History and Physical Assessment and Plan 17 y/o @ 35w5d with PEC without severe features (diagnosed by mild range Bps > 4 hours apart), with one severe range in triage. Given new diagnosis of PEC with one severe range BP, will admit to Mac 4 and monitor Bps, possibly repeat labs in am Preeclampsia without severe features - One severe range BP 166/92, nonsustained -Asymptomatic -s/p BMZ 06/07, 06/08 Admit to Mac 4 -Consented and scanned (cephalic) -Consider growth scan in am Maternal Well-being - Vital signs stable and WNL - Emotional support and reassurance provided - All questions and concerns addressed IUP at 35w5d - lab work reviewed and non-concerning -Betamethasone given 06/07 - Cat 1, moderate variability, -decelerations Dispo - Due to severe blood pressure SBP >160 reading, third trimester, patient will be admitted - discussed with patient who agreed with disposition Vanessa Hilliard MD Emergency Medicine, PGY-1 Subjective: Maryana William is a 17 y.o 35w5d presented to the triage for elevated blood pressure. Patient states she is at a past appointment on 07 June which was found to have an elevated blood pressure. Patient states she was told to see blood pressure cuff and measure her blood pressure. She states this morning she had all pressure 136/87. Patient states she had a mild headache which resolved on its own. While in triage patient was seen to have an elevated blood pressure 139/82. Patient denies headache, blurriness of vision, chest pain, shortness of breath, vaginal discharge vaginal bleeding. Patient states mild right upper quadrant pain with palpation. 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 06/12/2023 Objective Last Vitals Temp Pulse Resp BP MAP O2 Sat 36.6 C (97.9 F) 74 18 139/82 97 % Physical Examination GENERAL: Examination reveals a well developed, well nourished, gravid female in no acute distress. She is alert and cooperative. LUNGS: clear to auscultation bilaterally HEART: regular rate and rhythm, S1, S2 normal, no murmur, click, rub or gallop ABDOMEN: soft, gravid, nontender, nondistended, no abnormal masses, no epigastric pain, Mild RUQ pain on palpation EXTREMITIES: no redness or tenderness in the calves or thighs, edema Mild+, SKIN: normal coloration and turgor, no rashes NEUROLOGICAL: alert, oriented, normal speech, no focal findings or movement disorder noted PSYCHOLOGICAL: awake and alert; oriented to person, place, and time Lab Review Labs in chart were reviewed. [facility] Work Phone: 06-13-2023 History and physical note Obstetrical Admission History and Physical Assessment and Plan 17 y/o @ 35w5d with PEC without severe features (diagnosed by mild range Bps > 4 hours apart), with one severe range in triage. Given new diagnosis of PEC with one severe range BP, will admit to Mac 4 and monitor Bps, possibly repeat labs in am Preeclampsia without severe features - One severe range BP 166/92, nonsustained -Asymptomatic -s/p BMZ 06/07, 06/08 Admit to Mac 4 -Consented and scanned (cephalic) -Consider growth scan in am Maternal Well-being - Vital signs stable and WNL - Emotional support and reassurance provided - All questions and concerns addressed IUP at 35w5d - lab work reviewed and non-concerning -Betamethasone given 06/07 - Cat 1, moderate variability, -decelerations Dispo - Due to severe blood pressure SBP >160 reading, third trimester, patient will be admitted - discussed with patient who agreed with disposition Vanessa Hilliard MD Emergency Medicine, PGY-1 Subjective: Maryana William is a 17 y.o 35w5d presented to the triage for elevated blood pressure. Patient states she is at a past appointment on 07 June which was found to have an elevated blood pressure. Patient states she was told to see blood pressure cuff and measure her blood pressure. She states this morning she had all pressure 136/87. Patient states she had a mild headache which resolved on its own. While in triage patient was seen to have an elevated blood pressure 139/82. Patient denies headache, blurriness of vision, chest pain, shortness of breath, vaginal discharge vaginal bleeding. Patient states mild right upper quadrant pain with palpation. 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 06/12/2023 Objective Last Vitals Temp Pulse Resp BP MAP O2 Sat 36.6 C (97.9 F) 74 18 139/82 97 % Physical Examination GENERAL: Examination reveals a well developed, well nourished, gravid female in no acute distress. She is alert and cooperative. LUNGS: clear to auscultation bilaterally HEART: regular rate and rhythm, S1, S2 normal, no murmur, click, rub or gallop ABDOMEN: soft, gravid, nontender, nondistended, no abnormal masses, no epigastric pain, Mild RUQ pain on palpation EXTREMITIES: no redness or tenderness in the calves or thighs, edema Mild+, SKIN: normal coloration and turgor, no rashes NEUROLOGICAL: alert, oriented, normal speech, no focal findings or movement disorder noted PSYCHOLOGICAL: awake and alert; oriented to person, place, and time Lab Review Labs in chart were reviewed. documented in this encounter [facility] Work Phone: 06-07-2023 Nurse Note Pt discharged home. Betamethasone steroid injection received. Pt tolerated well. All homegoing instructions reviewed with pt regarding BP log, follow up in office, MFM referral, and returning tomorrow around 1800 for repeat betamethasone. Pt agrees to plan of care. States she will come to hospital after work. Phone number for office and answering service provided to pt. She denies any further questions or concerns. Ambulated off unit. [facility] Work Phone: 06-07-2023 Nurse Note Pt discharged home. Betamethasone steroid injection received. Pt tolerated well. All homegoing instructions reviewed with pt regarding BP log, follow up in office, MFM referral, and returning tomorrow around 1800 for repeat betamethasone. Pt agrees to plan of care. States she will come to hospital after work. Phone number for office and answering service provided to pt. She denies any further questions or concerns. Ambulated off unit. documented in this encounter [facility] Work Phone: 06-07-2023 History of Present illness Narrative Reviewed lab results with Dr. Us. ALT and AST both WNL. Plt WNL. PCR elevated to 0.33. BP's have remained normotensive during triage evaluation. Pt still asymptomatic. Discussed with patient that while she has not yet met criteria for HDP diagnosis, she will likely meet criteria in the coming days/weeks. Discussed recommendation for 37 0/7 week IOL for pre-eclampsia without severe features, 34 0/7 week IOL for pre-eclampsia with severe features. Given high likelihood for delivery, betamethasone injection recommended for lung development. Pt is agreeable. First dose administered today. Pt OK for discharge now, but is to return to OB triage tomorrow evening for second dose and another BP check. Pt to schedule a routine visit for Monday06/09/22, and an MFM consult within the next week, per Dr. Us. MFM referral Autumn fay tasked to help with scheduling these visits. Pt instructed to measure BP at least once daily at home. Advised to report any BP 140 or higher systolic, 90 or higher diastolic. Pt has emergency answering service number and verbalizes understanding of when to call. CESAR Phelps documented in this encounter [facility] Work Phone: 06-07-2023 History and physical note Obstetrical Admission History and Physical Maryana William is a 17 y.o. . Presenting for evaluation of mild-range blood pressure noted at appointment today. Chief Complaint: No chief complaint on file. Assessment/Plan Elevated BP Reading in office without diagnosis of hypertension - Normotensive on arrival, 125/80, 117/72. Will continue to monitor BP per protocol. - Pt denies s/s of PEC - Reactive NST - CBC, CMP, and PCR ordered Reviewed s/s of PEC with patient. Her mother is an EMT, so they already have a BP cuff at home. Pt to spot-check BP for any s/s. Discussed parameters for which to call emergency answering service line. Will plan to discharge home pending normal labs. Active Problems: There are no active Hospital Problems. Problems (from 01/13/23 to present) Problem Noted Resolved Encounter for supervision of normal first in second trimester 03/21/2023 by CESAR Bone No Priority: Medium Overview Addendum 06/07/2023 4:21 PM by CESAR De Leon Initial BMI 24 rrNIPS Declines COVID and Flu vaccines S/p TDAP [ ] RSV [ ] Contraception 34.6 wks elevated BP 140/90. Carl Delgado was sent in for evaluation by supervisor phosphorus processing Nirav Kelly following her appointment this evening, following a mild-range BP of 140/90. She denies vision changes, MART, or RUQ pain. She feels well and endorses good FM. 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 06/06/2023 Objective Last Vitals Temp Pulse Resp BP MAP O2 Sat 37 C (98.6 F) 93 125/80 97 % Physical Examination GENERAL: Examination reveals a well developed, well nourished and overweight, gravid female in no acute distress. She is alert and cooperative. HEENT: normocephalic, atraumatic LUNGS: clear to auscultation bilaterally and unlabored respirations HEART: regular rate and rhythm, S1, S2 normal, no murmur, click, rub or gallop ABDOMEN: soft, gravid, nontender, nondistended, no abnormal masses, no epigastric pain FHR: 125bpm, mod variability, + accels, - decels [place] reading: quiet, no contractions noted NEUROLOGICAL: alert, oriented, normal speech, no focal findings or movement disorder noted, DTRs normal and symmetrical PSYCHOLOGICAL: awake and alert; oriented to person, place, and time Lab Review Labs in chart were reviewed. [facility] Work Phone: 06-07-2023 History and physical note Obstetrical Admission History and Physical Maryana William is a 17 y.o. . Presenting for evaluation of mild-range blood pressure noted at appointment today. Chief Complaint: No chief complaint on file. Assessment/Plan Elevated BP Reading in office without diagnosis of hypertension - Normotensive on arrival, 125/80, 117/72. Will continue to monitor BP per protocol. - Pt denies s/s of PEC - Reactive NST - CBC, CMP, and PCR ordered Reviewed s/s of PEC with patient. Her mother is an EMT, so they already have a BP cuff at home. Pt to spot-check BP for any s/s. Discussed parameters for which to call emergency answering service line. Will plan to discharge home pending normal labs. Active Problems: There are no active Hospital Problems. Problems (from 01/13/23 to present) Problem Noted Resolved Encounter for supervision of normal first in second trimester 03/21/2023 by Alycia Vicente APRN-KARUNA No Priority: Medium Overview Addendum 06/07/2023 4:21 PM by CESAR De Leon Initial BMI 24 rrNIPS Declines COVID and Flu vaccines S/p TDAP [ ] RSV [ ] Contraception 34.6 wks elevated BP 140/90. Subjective Maryana was sent in for evaluation by supervisor phosphorus processing Nirav Kelly following her appointment this evening, following a mild-range BP of 140/90. She denies vision changes, MART, or RUQ pain. She feels well and endorses good FM. 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 06/06/2023 Objective Last Vitals Temp Pulse Resp BP MAP O2 Sat 37 C (98.6 F) 93 125/80 97 % Physical Examination GENERAL: Examination reveals a well developed, well nourished and overweight, gravid female in no acute distress. She is alert and cooperative. HEENT: normocephalic, atraumatic LUNGS: clear to auscultation bilaterally and unlabored respirations HEART: regular rate and rhythm, S1, S2 normal, no murmur, click, rub or gallop ABDOMEN: soft, gravid, nontender, nondistended, no abnormal masses, no epigastric pain FHR: 125bpm, mod variability, + accels, - decels [place] reading: quiet, no contractions noted NEUROLOGICAL: alert, oriented, normal speech, no focal findings or movement disorder noted, DTRs normal and symmetrical PSYCHOLOGICAL: awake and alert; oriented to person, place, and time Lab Review Labs in chart were reviewed. documented in this encounter [facility] Work Phone: Evaluation note Diagnosis Vaginal bleeding- Primary Other specified noninflammatory disorder of vagina Intrauterine documented in this encounter [facility] Phone: evaluation note* Diagnosis Vaginal bleeding- Primary Other specified noninflammatory disorder of vagina Threatened miscarriage Threatened , unspecified as to episode of care documented in this encounter [facility] Phone: evaluation note* Diagnosis Threatened miscarriage in early Threatened , unspecified as to episode of care documented in this encounter [facility] Phone: [id number] note* Diagnosis Early stage of documented in this encounter [facility] note* Diagnosis Proteinuria affecting in third trimester- Primary Proteinuria affecting in third trimester Elevated blood pressure reading in office without diagnosis of hypertension Elevated blood pressure reading in office without diagnosis of hypertension documented in this encounter [facility] Work Phone: Evaluation note* Diagnosis Preeclampsia, third trimester- Primary Preeclampsia, third trimester Anemia of mother in , delivered with condition Anemia of mother, with delivery, with mention of complication Encounter for initial prescription of contraceptive pills documented in this encounter [facility] Work Phone: Evaluation note* Diagnosis 15 weeks gestation of - Primary state, incidental Late care affecting in second trimester Short interval between pregnancies complicating , antepartum Supervision of other high-risk Hx of pre-eclampsia in prior , currently with other poor obstetric history Supervision of high risk , antepartum [facility] [place] [facility] Diagnosis Supervision of high risk , antepartum- Primary Late care affecting in second trimester Short interval between pregnancies complicating , antepartum Supervision of other high-risk Hx of pre-eclampsia in prior , currently with other poor obstetric history 20 weeks gestation of state, incidental [facility] [place] [facility]* Diagnosis Bilateral calf pain- Primary Pain in limb [facility] [place] [facility]* Diagnosis Encounter for anatomic survey- Primary 22 weeks gestation of state, incidental documented in this encounter [facility] note* Diagnosis 24 weeks gestation of - Primary state, incidental Screening for diabetes mellitus Supervision of high risk , antepartum Need for influenza vaccination Need for prophylactic vaccination and inoculation against influenza * Assessment & Plan Note - Tyrell Spencer MD - 08/12/2024 3:40 PM EDT Associated Problem(s): Supervision of high risk , antepartum flu vaccine next visit, doesn't want today, declines covid [facility] [place] [facility]* Diagnosis 24 weeks gestation of (HCC)- Primary state, incidental Screening for diabetes mellitus Supervision of high risk , antepartum (HCC) Need for influenza vaccination Need for prophylactic vaccination and inoculation against influenza Supervision of high risk , antepartum (HCC)- Primary 28 weeks gestation of (HCC) state, incidental Need for vaccination Need for prophylactic vaccination and inoculation against unspecified single disease documented in this encounter [facility] note* Diagnosis 24 weeks gestation of (HCC)- Primary state, incidental Screening for diabetes mellitus Supervision of high risk , antepartum (HCC) Need for influenza vaccination Need for prophylactic vaccination and inoculation against influenza 30 weeks gestation of (HCC)- Primary state, incidental Late care (HCC) Insufficient care Supervision of high risk in third trimester (HCC) Unspecified high-risk documented in this encounter [facility] note* Diagnosis Pneumonia of left lower lobe due to infectious organism- Primary documented in this encounter [facility] Work Phone: Evaluation note* Diagnosis 24 weeks gestation of (HCC)- Primary state, incidental Screening for diabetes mellitus Supervision of high risk , antepartum ([facility]) Need for influenza vaccination Need for prophylactic vaccination and inoculation against influenza Anemia complicating , third trimester (HCC)- Primary 32 weeks gestation of (HCC) state, incidental Supervision of high risk in third trimester (HCC) Unspecified high-risk Pneumonia affecting in third trimester ([facility]) * Assessment & Plan Note - Naren Bullard MD - 10/10/2024 11:02 AM EDTAssociated Problem(s): Anemia complicating , third trimester (HCC) Orders: COMPLETE BLOOD COUNT; Future IRON AND TIBC; Future FERRITIN; Future * Assessment & Plan Note - Naren Bullard MD - 10/10/2024 11:02 AM EDTAssociated Problem(s): Pneumonia affecting in third trimester ([facility]) Continue augmentin documented in this encounter [facility] note* Diagnosis 24 weeks gestation of (HCC)- Primary state, incidental Screening for diabetes mellitus Supervision of high risk , antepartum ([facility]) Need for influenza vaccination Need for prophylactic vaccination and inoculation against influenza Anemia complicating , third trimester (HCC)- Primary 32 weeks gestation of (HCC) state, incidental Supervision of high risk in third trimester (HCC) Unspecified high-risk Pneumonia affecting in third trimester (HCC) Supervision of high risk in third trimester (HCC)- Primary Unspecified high-risk 34 weeks gestation of (HCC) state, incidental History of pre-eclampsia Personal history of other genital system and obstetric disorders [facility]* Diagnosis 24 weeks gestation of (HCC)- Primary state, incidental Screening for diabetes mellitus Supervision of high risk , antepartum (HCC) Need for influenza vaccination Need for prophylactic vaccination and inoculation against influenza Anemia complicating , third trimester (HCC)- Primary 32 weeks gestation of (HCC) state, incidental Supervision of high risk in third trimester (HCC) Unspecified high-risk Pneumonia affecting in third trimester (HCC) Supervision of high risk in third trimester (HCC)- Primary Unspecified high-risk 36 weeks gestation of (HCC) state, incidental documented in this encounter [facility] note* Diagnosis Rib pain on right side- Primary 37 weeks gestation of (HHS-HCC) Calculus of gallbladder without cholecystitis without obstruction documented in this encounter [facility] Work Phone: Evaluation note* Diagnosis 24 weeks gestation of (HCC)- Primary state, incidental Screening for diabetes mellitus Supervision of high risk , antepartum (HCC) Need for influenza vaccination Need for prophylactic vaccination and inoculation against influenza Anemia complicating , third trimester (HCC)- Primary 32 weeks gestation of (HCC) state, incidental Supervision of high risk in third trimester (HCC) Unspecified high-risk Pneumonia affecting in third trimester (HCC) Supervision of high risk in third trimester (HCC)- Primary Unspecified high-risk 37 weeks gestation of (HCC) state, incidental Gallstones Calculus of gallbladder without mention of cholecystitis or obstruction documented in this encounter [facility] Discharge instructions* Instructions* Alexandre Casillas MD - 10/18/[address] [place] [address]. REPEAT TEST IN 48H. RETURN FOR NEW OR WORSENING SYMPTOMS OR IF BLEEDING THRU MORE THAN 1 PAD PER HOUR. [facility] Discharge [facility]* Instructions* Alexandre Casillas MD - 10/19/2020 FOLLOW UP WITH OB OR RETURN TO ED TOMORROW FOR 48H HCG TEST. LOOKUP BLOOD TYPE FOR RHOGAM TOMORROW,IF INDICATED. RETURN IF BLEEDING THROUGH MORE THAN 1 PAD PER HOUR. * Attachments The following attachments cannot be sent through Care Everywhere. * Miscarriage: Threatened (Malagasy) [facility]: Hospital Discharge instructions* Attachments The following attachments cannot be sent through Care Everywhere. * _Pneumonia, Bacterial, [facility] (Malagasy) [facility] [place] [facility] Discharge [facility]* Attachments The following attachments cannot be sent through Care Everywhere. * _Cholelithiasis, [facility] (Malagasy) * Gallbladder Diet (Malagasy) [facility] [place] Work Phone: Reason for referral (narrative)* Consultation (Routine) - Authorized Specialty Diagnoses / Procedures Referred By Contac t Referred To Contact Maternal and Medicine Diagnoses Proteinuria affecting in third trimester Elevated blood pressure reading in office without diagnosis of hypertension Paty Hernandez APRN-CNM [facility] [address] [place] [address] Referral ID Status Reason Start Date Expiration Date Visits Requested Visits Authorized [id number] Authorized Specialty Services Required 06/07/2023 06/06/2024 1 1 [facility] Work Phone: Reuewv for referral (narrative)* Diagnostic Procedure Only (Routine) - Authorized Specialty Diagnoses / Procedures Referred By Contac t Referred To Contact [facility] Diagnoses 15 weeks gestation of Procedures OBSTETRIC ULTRASOUND WHI US PREG UTERUS AFTER 1ST TRIMEST GESTATION Priscilla Murphy APRN.LOOM FIXER SUPERVISOR [address] [place] [address] [facility] [place] [address] Referral ID Status Reason Start Date Expiration Date Visits Requested Visits Authorized [id number] Authorized Auto-Generat ed Referral 06/10/2024 06/10/2025 1 1 [facility] Advance Directives Documents on File Type Date Recorded Patient Feather Washer Expl anation ACP-Advance Directive ACP-Power of Avionics Mechanic Latest Code Status on File Code Status Date Activated Date Inactivated Comments Full Code 06/14/2023 5:13 AM Question Answer Comments Plan of Care: Code Status Discussion Not Compl eted Decision Maker: Provider Rationale: Patient condition do es not warrant discussion Code Status History Code Status Date Activated Date Inactivated Comments Full Code 06/13/2023 2:50 PM 06/14/2023 5:13 AM Question Answer Comments Plan of Care: Code Status Discussion Not Compl eted Decision Maker: Provider Rationale: Patient condition do es not warrant discussion Date Activated Date Inactivated Comments 06/14/2023 5:13 AM Question Answer Comments Plan of Care: Code Status Discussion Not Compl eted Decision Maker: Provider Rationale: Patient condition does not warra nt discussion Date Activated Date Inactivated Comments 06/13/2023 2:50 PM 06/14/2023 5:13 AM Question Answer Comments Plan of Care: Code Status Discussion Not Compl eted Decision Maker: Provider Rationale: Patient condition does not warra nt discussion Date Activated Date Inactivated Comments 06/14/2023 5:13 AM Question Answer Comments Plan of Care: Code Status Discussion Not Compl eted Decision Maker: Provider Rationale: Patient condition does not warra nt discussion Date Activated Date Inactivated Comments 06/13/2023 2:50 PM 06/14/2023 5:13 AM Question Answer Comments Plan of Care: Code Status Discussion Not Compl eted Decision Maker: Provider Rationale: Patient condition does not warra nt discussion Summary Purpose Family History Unknown Family Member Name Dates Details No pertinent family history: Mother, Father(V49.89, Z78.9) Status:Active Unknown Family Member Name Dates Details No pertinent family history: Mother, Father(V49.89, Z78.9) Status:Active Unknown Family Member Name Dates Details No pertinent family history: Mother, Father(V49.89, Z78.9) Status:Active Reason for Referral Specialty Diagnoses / Procedures Referred By Contac t Referred To Contact Radiology Diagnoses Early stage of Procedures US OB LESS THAN 14 WEEKS SINGLE OR FIRST GESTATION Hina Winter APRN [facility] [address] [place] [address] Referral ID Status Reason Start Date Expiration Date V isits Requested Visits Authorized [id number] Pending Review 12/09/2022 12/08/2023 1 1 Additional Source Comments Reason for Visit (unrecogniz ed section and content) Reason Comments Vaginal Bleeding Reason Comments Vaginal Bleeding 9 weeks Specialty Diagnoses / Procedures Referred By Contac t Referred To Contact Radiology Diagnoses Early stage of Procedures US OB LESS THAN 14 WEEKS SINGLE OR FIRST GESTATION Hina Winter APRN [facility] [address] [place] [address] Referral ID Status Reason Start Date Expiration Date V isits Requested Visits Authorized [id number] Pending Review 12/09/2022 12/08/2023 1 1 Reason Comments Hypertension Specialty Diagnoses / Procedures Referred By Contac t Referred To Contact Diagnoses Preeclampsia, third trimester Procedures [place] [id number] [facility] Department of NATURAL RESOURCE TECHNICIAN-General [place] [address] [facility] [place] [id number] [place] [id number] Referral ID Status Reason Start Date Expiration Date Visits Re quested Visits Authorized [id number] 1 1 Reason Comments Initial OB Visit Reason Onset Date Comments Care 07/16/2024 Reason Comments US Specialty Diagnoses / Procedures Referred By Contac t Referred To Contact [facility] Diagnoses 15 weeks gestation of Procedures OBSTETRIC ULTRASOUND WHI US PREG UTERUS AFTER 1ST TRIMEST GESTATION Priscilla Murphy APRN.LOOM FIXER SUPERVISOR [address] [place] [address] Phone: tel: fax: [facility] [address] [place] [address] Referral ID Status Reason Start Date Expiration Date V isits Requested Visits Authorized [id number] Closed Auto-Generate d Referral 06/10/2024 06/10/2025 1 1 Reason Onset Date Comments Care 08/12/2024 Immunizations 08/12/2024 Flu vaccination Reason Onset Date Comments Care 09/09/2024 Reason Onset Date Comments Care 09/23/2024 Reason Comments Shortness of Breath Back pain Reason Comments Shortness of Breath C/o SOB intermittent ly since yesterday, lasts about 5-6 minutes. Also c/o right sided CP for the last few days Reason Comments ED Follow-up Reason Onset Date Comments Care 10/10/2024 Reason Onset Date Comments Care 10/21/2024 Reason Onset Date Comments Care 11/04/2024 Reason Comments OB pain Reason Comments Chest Pain C/o right rib pain x 2 weeks, states she was treated for pneumonia and denies any relief Reason Onset Date Comments Care 11/14/2024 Reason Onset Date Comments Population Health Navigation Outreach 11/18/2024 to PCP/OB Ordered Prescriptions (unrec ognized section and content) Prescription Sig Dispensed Refills Start Date End Da te cephALEXin (KEFLEX) 500 MG capsule Take 1 capsule by mouth 3 times daily for 5 days 15 capsule 0 10/18/2020 10/23/2020 No Frequency Active and Recently Administ ered Medications (unrecognized section and content) Medication Order 10/16/2020 10/17/2020 10/18/2020 sodium chloride 0.9 % infusion Starting on 10/17/20 at 2249, For 1 dose, Angelica Burgos: cabinet override 2250 (Due) Scheduled Medication Order 06/05/2023 06/06/2023 06/07/2023 betamethasone acet,sod phos (Celestone) injection 12 mg 12 mg, intramuscular, Every 24 hours, First dose on Mon06/07/23 at 1800, For 2 doses 1802 (Given - Provid er: Lian Mas RN) oxygen (O2) therapy inhalation, Continuous - , First dose on Mon06/07/23 at 1645, Notify provider if O2 sat less than 95% if or O2 sat less than 92% for patients., Device: Nasal Cannula, Rate in liters per minute: 2 LPM, Keep O2 Sat Above: 95% 1645 (Due) PRN Medication Order 06/05/2023 06/06/2023 06/07/2023 hydrALAZINE (Apresoline) injection 5 mg 5 mg, intravenous, Administer over 2 Minutes, Once as needed, Systolic greater than or equal to 160 OR Diastolic greater than or equal to 110, Starting on Mon06/07/23 at 1641, For 1 dose, Consult provider prior to administration. Push over more than 2 minutes. Systolic greater than or equal to 160 OR Diastolic greater than or equal to 110. Repeat blood pressure in 20 minutes. Contraindication: coronary artery disease (CAD); Caution in suspected CAD labetaloL (Normodyne,Trandate) injection 20 mg 20 mg, intravenous, Administer over 2 Minutes, Once as needed, Systolic greater than or equal to 160 OR Diastolic greater than or equal to 110, Starting on Mon06/07/23 at 1641, For 1 dose, Consult provider prior to administration. Push over more than 2 minutes. Systolic greater than or equal to 160 OR Diastolic greater than or equal to 110. Repeat blood pressure in 10 minutes. Contraindications: active asthma, heart disease, heart failure, maternal bradycardia < 60. lidocaine (Xylocaine) 10 mg/mL (1 %) injection 5 mg 5 mg (0.5 mL), subcutaneous, Once as needed, Prior to IV insertion, Starting on Mon06/07/23 at 1641, For 1 dose NIFEdipine (Procardia) capsule 10 mg 10 mg, oral, Once as needed, high blood pressure, Systolic greater than or equal to 160 OR Diastolic greater than or equal to 110, Starting on Mon06/07/23 at 1641, For 1 dose, Consult provider prior to administration. ondansetron (Zofran) injection 4 mg(Linked Group 1) 4 mg, intravenous, Every 6 hours PRN, nausea/vomiting, first line, Starting on Mon06/07/23 at 1641, Give IV if patient is unable to take orally. When administering via IV Push, administer over 3-5 minutes. ondansetron (Zofran) tablet 4 mg(Linked Group 1) 4 mg, oral, Every 6 hours PRN, nausea/vomiting, first line, Starting on Mon06/07/23 at 1641 Linked Groups Order Group 1: ondansetron (Zofran) tablet 4 mgJump to med 4 mg, oral, Every 6 hours PRN, nausea/vomiting, first line, Starting on Mon06/07/23 at 1641 Or ondansetron (Zofran) injection 4 mgJump to med 4 mg, intravenous, Every 6 hours PRN, nausea/vomiting, first line, Starting on Mon06/07/23 at 1641
Give IV if patient is unable to take orally. When administering via IV Push, administer over 3-5 minutes.
Scheduled Medication Order 06/06/2023 06/07/2023 06/08/2023 betamethasone acet,sod phos (Celestone) injection 12 mg (COMPLETED) 12 mg, intramuscular, Once, On Marlin 06/08/23 at 2014, For 1 dose 2028 (Given - Provid er: Almaz Benz RN) Scheduled Medication Order 06/17/2023 06/18/2023 06/19/2023 acetaminophen (Tylenol) tablet 975 mg 975 mg, oral, Every 6 hours, First dose on Marlin 06/15/23 at 0600, Give with Ibuprofen, If ordered PRN for pain, nurse is permitted to administer this medication for higher pain scores based on patient preference? Yes 0039 (Given - Provider: Dahiana Noland RN)0636 (Given - Provider: Dahiana Noland RN)1200 (Not Given - Provider: Jessica Johnston RN - Reason: Patient/family refused)1800 (Not Given - Provider: Dahiana Noland RN - Reason: Patient/family refused - Comment: amanda Ritchie RN in report patient refused meds) 0012 (Given - Provider: Dahiana Noland RN)0639 (Given - Provider: Dahiana Noland RN)1243 (Given - Provider: Molly Torres, SOULEYMANE)1800 (Not Given - Provider: oMlly Torres RN - Reason: Patient/family refused) 0000 (Not Given - Provider: Mariajose Gunn RN - Reason: Patient/family refused)0634 (Given - Provider: Mariajose Gunn RN)1409 (Given - Provider: Hina Fernando RN)1800 (Due) enoxaparin (Lovenox) syringe 40 mg 40 mg, subcutaneous, Every 24 hours, First dose on Marlin 06/15/23 at 1715, , Wait 12 hours after neuraxial catheter placement AND 4 hours after neuraxial catheter removal. 0039 (Given - Provider: Dahiana Noland RN) 0012 (Given - Provider: Dahiana Noland RN)2300 (Not Given - Provider: Mariajose Gunn RN - Reason: Patient/family refused) 1715 (Due) ibuprofen tablet 600 mg 600 mg, oral, Every 6 hours, First dose on Marlin 06/15/23 at 0600, Give with Acetaminophen, If ordered PRN for pain, nurse is permitted to administer this medication for higher pain scores based on patient preference? Yes 0039 (Given - Provider: Dahiana Noland RN)0636 (Given - Provider: Dahiana Noland RN)1200 (Not Given - Provider: Jessica Johnston RN - Reason: Patient/family refused)1800 (Not Given - Provider: Dahiana Noland RN - Reason: Patient/family refused - Comment: amanda Ritchie RN in report patient refused meds) 0012 (Given - Provider: Dahiana Noland RN)0639 (Given - Provider: Dahiana Noland RN)1243 (Given - Provider: Molly Torres, SOULEYMANE)1800 (Not Given - Provider: Molly Torres RN - Reason: Patient/family refused) 0000 (Not Given - Provider: Mariajose Gunn RN - Reason: Patient/family refused)0600 (Not Given - Provider: Mariajose Gunn RN - Reason: Patient/family refused)1200 (Not Given - Provider: Hina Fernando RN - Reason: Patient/family refused)1800 (Due) NIFEdipine ER (Adalat CC) 24 hr tablet 30 mg 30 mg, oral, Every 24 hours, First dose on Mon06/18/23 at 2130, Give on an empty stomach. Do not crush, chew, or split. 2129 (Not Given - Provider: Mariajose Gunn RN - Reason: Contraindicated - Comment: duplicate order) 2129 (Due) NIFEdipine ER (Adalat CC) 24 hr tablet 30 mg (CANCELED) 30 mg, oral, Daily before breakfast, First dose on Marlin 06/15/23 at 1830, Give on an empty stomach. Do not crush, chew, or split. 0636 (Given - Provider: Dahiana Noland RN) 0639 (Given - Provider: Dahiana Noland RN) NIFEdipine ER (Adalat CC) 24 hr tablet 30 mg (COMPLETED) 30 mg, oral, Once, On Mon06/18/23 at 0800, For 1 dose, Give on an empty stomach. Do not crush, chew, or split. 0838 (Given - Provider: Molly Torres RN) NIFEdipine ER (Adalat CC) 24 hr tablet 30 mg (COMPLETED) 30 mg, oral, Once, On Mon06/18/23 at 1230, For 1 dose, Give on an empty stomach. Do not crush, chew, or split. 1243 (Given - Provider: Molly Torres RN) NIFEdipine ER (Adalat CC) 24 hr tablet 90 mg 90 mg, oral, Daily before breakfast, First dose (after last modification) on Mon06/19/23 at 0700, Give on an empty stomach. Do not crush, chew, or split. 0634 (Given - Provider: Mariajose Gunn RN) Continuous Medication Order 06/17/2023 06/18/2023 06/19/2023 magnesium sulfate 20 gram/500 mL (4 %) infusion 2 g/hr (50 mL/hr), intravenous, Continuous, Starting on Mon06/14/23 at 0515, Monitor blood pressure, pulse, respirations and pulse oximetry every 15 minutes first hour of Magnesium Sulfate administration, then every hour. Monitor for signs and symptoms of magnesium toxicity including: BLOCKER AUTOMATIC depression, diminished DTRs, increasing muscle weakness, respirations < 12, change in lung sounds, pulse ox less than 96% (antepartum/intrapartum) or less than 92% (), decrease in baseline blood pressure, chest pain, urine output < 0.5 mL/kg/hr If signs of toxicity are present: notify physician immediately, discontinue magnesium sulfate & obtain stat serum magnesium level, administer calcium Gluconate 1 gram for immediate administration PRN Medication Order 06/17/2023 06/18/2023 06/19/2023 benzocaine-menthoL (Dermoplast) topical spray 1 Application 1 Application, Topical, 4 times daily PRN, irritation, Discomfort, Starting on Mon06/15/23 at 0900, Apply to perianal area Hold can 6-12 inches away from affected area while applying. bisacodyl (Dulcolax) suppository 10 mg 10 mg, rectal, Daily PRN, constipation, first line, Severe, Starting on Mon06/15/23 at 0900 calcium gluconate 100 mg/mL (10%) injection 1 g 1 g, intravenous, Once as needed, Magnesium toxicity, Starting on Mon06/14/23 at 0513, For 1 dose, IV push over 5 minutes. carboprost (Hemabate) injection 250 mcg 250 mcg, intramuscular, Once as needed, bleeding in non-asthmatic patient, Starting on Mon06/15/23 at 0900, For 1 dose, Consult provider prior to administration diphenhydrAMINE (BENADryl) capsule 25 mg(Linked Group 1) 25 mg, oral, Every 6 hours PRN, itching, Starting on Mon06/15/23 at 0900 diphenhydrAMINE (BENADryl) injection 25 mg(Linked Group 1) 25 mg, intravenous, Administer over 2 Minutes, Every 6 hours PRN, itching, Starting on Mon06/15/23 at 0900, If giving IV push, max rate of 25 mg/min. hydrALAZINE (Apresoline) injection 5 mg 5 mg, intravenous, Once as needed, Acute onset, severe HTN without known, suspected CAD. SBP greater than or equal to 160 OR DBP greater than or equal to 110., Starting on Mon06/15/23 at 0900, For 1 dose, Consult provider prior to administration. Push over more than 2 minutes. Contraindications: coronary artery disease (CAD); Caution in suspected CAD. labetaloL (Normodyne,Trandate) injection 20 mg 20 mg, intravenous, Once as needed, Acute onset, severe HTN without active asthma, bradycardia < 60. SBP greater than or equal to 160 OR DBP greater than or equal to 110., Starting on Mon06/15/23 at 0900, For 1 dose, Consult provider prior to administration. Push over more than 2 minutes. Contraindications: active asthma, heart disease, heart failure, maternal bradycardia < 60. lanolin (Lansinoh) 100 % cream 1 Application 1 Application, Topical, Every 24 hours PRN, dry skin, Starting on Mon06/15/23 at 0900, Apply to nipple after and PRN lidocaine 4 % patch 1 patch 1 patch, transdermal, Administer over 12 Hours, Every 24 hours PRN, pain breakthrough, Incisional pain, Starting on Mon06/15/23 at 0900, On for 12 hours then remove for 12 hours loperamide (Imodium) capsule 4 mg 4 mg, oral, Every 2 hour PRN, diarrhea, If Carboprost given or loose stools, Starting on Mon06/15/23 at 0900, For 4 doses, Max dose of 16mg / 24 hours. magnesium hydroxide (Milk of Magnesia) 400 mg/5 mL suspension 10 mL 10 mL, oral, Every 24 hours PRN, constipation, second line, Starting on Mon06/15/23 at 0900, Follow administration with 8 ounces of water. measles, mumps and rubella (MMR) 1,000-12,500 TCID50/0.5 mL vaccine 0.5 mL 0.5 mL, subcutaneous, Once as needed, immunization, Starting on Mon06/15/23 at 0900, For 1 dose, Administer if patient screen is non-immune or equivocal Vaccine is a vial of powder. Reconstitute with the available diluent for this vaccine. Barcode scan vaccine vial for Vaccine Record, Indications: [id number] vaccination methylergonovine (Methergine) injection 0.2 mg 0.2 mg, intramuscular, Once as needed, PPH in pts w/o HTN or receiving ART for HIV mgmt, Starting on Mon06/15/23 at 0900, For 1 dose, Consult provider prior to administration miSOPROStoL (Cytotec) tablet 800 mcg 800 mcg, rectal, Once as needed, bleeding, Starting on Mon06/15/23 at 0900, For 1 dose, Consult provider prior to administration NIFEdipine (Procardia) capsule 10 mg 10 mg, oral, Once as needed, high blood pressure, Acute onset, severe HTN without IV access/ oral preferred. SBP greater than or equal to 160 OR DBP greater than or equal to 110., Starting on Mon06/15/23 at 0900, For 1 dose, Consult provider prior to administration. Capsules administered orally and swallowed whole; Do not puncture or crush; Do not administer sublingually. ondansetron (Zofran) injection 4 mg(Linked Group 2) 4 mg, intravenous, Every 6 hours PRN, nausea/vomiting, first line, Starting on Marlin 06/15/23 at 0900, Give IV if patient is unable to take orally. When administering via IV Push, administer over 3-5 minutes. ondansetron (Zofran) tablet 4 mg(Linked Group 2) 4 mg, oral, Every 6 hours PRN, nausea/vomiting, first line, Starting on Marlin 06/15/23 at 0900 oxygen (O2) therapy inhalation, Continuous PRN - O2/gases, other, Starting on Marlin 06/15/23 at 0900, Notify provider if SpO2 is less than 92%, Device: Nasal Cannula, Rate in liters per minute: 2 LPM, Keep O2 Sat Above: 92% oxytocin (Pitocin) bolus from bag 600 ivana-units/min (600 mL/hr), intravenous, Administer over 30 Minutes, Once as needed, management of 3rd stage of labor, Starting on Marlin 06/15/23 at 0900, For 1 dose, 600 milliunits/min x 30 min, then 60 milliunits/min for the remainder of the bag. Begin infusion at delivery of (s). oxytocin (Pitocin) bolus from bag 600 ivana-units/min (600 mL/hr), intravenous, Administer over 30 Minutes, Once as needed, hemorrhage, Starting on Marlin 06/15/23 at 0900, For 1 dose, Conditional order. 600 milliunits/min x 30 min, then 60 milliunits/min for the remainder of the bag. Consult Provider prior to administration. oxytocin (Pitocin) infusion in sodium chloride 0.9% 30 units/500 mL 60 ivana-units/min (60 mL/hr), intravenous, Once as needed, management of 3rd stage of labor, Starting on Marlin 06/15/23 at 0900, For 1 dose, Titration Goal: Do Not Titrate oxytocin (Pitocin) injection 10 Units 10 Units, intramuscular, Once as needed, management-3rd Stage of labor if not given IV, Starting on Marlin 06/15/23 at 0900, For 1 dose, Consult Provider prior to administration oxytocin (Pitocin) injection 10 Units 10 Units, intramuscular, Once as needed, bleeding (if no IV access), Starting on Mon06/15/23 at 0900, For 1 dose, Conditional order, consult Provider prior to administration polyethylene glycol (Glycolax, Miralax) packet 17 g 17 g, oral, 2 times daily PRN, constipation, first line, Starting on Mon06/15/23 at 0900 psyllium (Metamucil) 3.4 gram packet 1 packet 1 packet, oral, Daily PRN, any constipation, Starting on Mon06/15/23 at 0900, Give with at least 8 ounces of water or juice simethicone (Mylicon) chewable tablet 80 mg 80 mg, oral, 4 times daily PRN, flatulence, Starting on Mon06/15/23 at 0900 tranexamic acid (Cyklokapron) injection 1,000 mg 1,000 mg, intravenous, Once as needed, bleeding in all patients, Starting on Mon06/15/23 at 0900, For 1 dose, Consult provider prior to administration, Tranexamic Acid Indication: Hemorrhage: 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 sarika (Tucks) pads 1 each 1 each, Topical, 4 times daily PRN, hemorrhoids, Discomfort, Starting on Mon06/15/23 at 0900, Apply to perineum May self- administer after voiding Linked Groups Order Group 1: diphenhydrAMINE (BENADryl) injection 25 mgJump to med 25 mg, intravenous, Administer over 2 Minutes, Every 6 hours PRN, itching, Starting on Mon06/15/23 at 0900
If giving IV push, max rate of 25 mg/min.
Or diphenhydrAMINE (BENADryl) capsule 25 mgJump to med 25 mg, oral, Every 6 hours PRN, itching, Starting on Mon06/15/23 at 0900 Group 2: ondansetron (Zofran) tablet 4 mgJump to med 4 mg, oral, Every 6 hours PRN, nausea/vomiting, first line, Starting on Mon06/15/23 at 0900 Or ondansetron (Zofran) injection 4 mgJump to med 4 mg, intravenous, Every 6 hours PRN, nausea/vomiting, first line, Starting on Mon06/15/23 at 0900
Give IV if patient is unable to take orally. When administering via IV Push, administer over 3-5 minutes.
Scheduled Medication Order 10/04/2024 10/05/2024 10/06/2024 cefTRIAXone (Rocephin) 1 g in dextrose (iso) IV 50 mL (COMPLETED) 1 g, intravenous, at 100 mL/hr, Administer over 30 Minutes, Once, On Mon10/06/24 at 1930, For 1 dose, premix bag, Suspected Indication (Select all that apply): Pneumonia, Type of Therapy: Empiric, Indications: Pneumonia 1949 (New Bag - Prov ider: Tony Win RN)2030 (Stopped - Provider: Tere Hudson RN) iohexol (OMNIPaque) 350 mg iodine/mL solution 68 mL (COMPLETED) 68 mL, intravenous, Once in imaging, Starting on Mon10/06/24 at 1823, For 1 dose 1824 (Given - Provid er: Pamela Thomas) Scheduled Medication Order 11/10/2024 11/11/2024 11/12/2024 iohexol (OMNIPaque) 350 mg iodine/mL solution 67 mL (COMPLETED) 67 mL, intravenous, Once in imaging, Starting on Tu11/12/24 at 1751, For 1 dose 1753 (Given - Provid er: Flor Hernandez) INFORMATION SOURCE (unrecogn ized section and content) DATE CREATED AUTHOR 10/19/2020 [facility] DATE CREATED AUTHOR AUTHOR'S ORGANIZ ATION 12/13/2022 [facility] DATE CREATED AUTHOR AUTHOR'S ORGANIZ ATION 05/13/2023 [facility] DATE CREATED AUTHOR AUTHOR'S ORGANIZ ATION 07/16/2023 [facility] DATE CREATED AUTHOR AUTHOR'S ORGANIZ ATION 05/18/2024 [facility] DATE CREATED AUTHOR AUTHOR'S ORGANIZ ATION 10/11/2024 [facility] DATE CREATED AUTHOR AUTHOR'S ORGANIZ ATION 11/14/2024 [facility] DATE CREATED AUTHOR AUTHOR'S ORGANIZ ATION 11/15/2024 [facility] DATE CREATED AUTHOR AUTHOR'S ORGANIZ ATION 11/17/2024 [facility] Care Teams (unrecognized sec tion and content) Farm Consultant Relationship Specialty Start Date End Date Cortney Quinones, ILANA [address] [place] [address] PCP - General Physician Furnace Mechanic Helper 10/11/19 Farm Consultant Relationship Specialty Start Date End Date Alycia Vicente APRN-CNM [address] [facility] Department [place] [address] Homeworker Obstetrics and Gynecology 06/19/23 Farm Consultant Relationship Specialty Start Date End Date Generic Provider, No Assigned Pcp, [place] [address] PCP - General Artist Relationship Manager 10/06/24 Alycia Vicente APRN-KARUNA [address] [facility] [address] Homeworker Obstetrics and Gynecology 06/19/23 Farm Consultant Relationship Specialty Start Date End Date Generic Provider, No Assigned P[place], [place] [address] PCP - General Artist Relationship Manager 10/06/24 Alycia Vicente APRN-KARUNA [address] [facility] [address] Homeworker Obstetrics and Gynecology 06/19/23 Farm Consultant Relationship Specialty Start Date End Date Generic Provider, No Assigned P[place], [place] [address] PCP - General Artist Relationship Manager 10/06/24 Alycia Vicente APRN-KARUNA [address] [facility] [place] [address] Homeworker Obstetrics and Gynecology 06/19/23 Source Comments (unrecognize d section and content) In the event this informatio n is protected by the Federal Confidentiality of Alcohol and Drug Abuse Patient Records regulations: The Federal rules restrict any use of the information to criminally investigate or prosecute any alcohol or drug abuse patient.[facility] the event this information is protected by the Federal Confidentiality of Alcohol and Drug Abuse Patient Records regulations: The Federal rules restrict any use of the information to criminally investigate or prosecute any alcohol or drug abuse patient.[facility]In the event this information is protected by the Federal Confidentiality of Alcohol and Drug Abuse Patient Records regulations: The Federal rules restrict any use of the information to criminally investigate or prosecute any alcohol or drug abuse patient.[facility] Dayton[facility] the event this information is protected by the Federal Confidentiality of Alcohol and Drug Abuse Patient Records regulations: The Federal rules restrict any use of the information to criminally investigate or prosecute any alcohol or drug abuse patient.[facility] DaytonIn the event this information is protected by the Federal Confidentiality of Alcohol and Drug Abuse Patient Records regulations: The Federal rules restrict any use of the information to criminally investigate or prosecute any alcohol or drug abuse patient.[facility] DaytonIn the event this information is protected by the Federal Confidentiality of Alcohol and Drug Abuse Patient Records regulations: The Federal rules restrict any use of the information to criminally investigate or prosecute any alcohol or drug abuse patient.[facility] DaytonIn the event this information is protected by the Federal Confidentiality of Alcohol and Drug Abuse Patient Records regulations: The Federal rules restrict any use of the information to criminally investigate or prosecute any alcohol or drug abuse patient.[facility] DaytonIn the event this information is protected by the Federal Confidentiality of Alcohol and Drug Abuse Patient Records regulations: The Federal rules restrict any use of the information to criminally investigate or prosecute any alcohol or drug abuse patient.[facility] DaytonIn the event this information is protected by the Federal Confidentiality of Alcohol and Drug Abuse Patient Records regulations: The Federal rules restrict any use of the information to criminally investigate or prosecute any alcohol or drug abuse patient.[facility] DaytonIn the event this information is protected by the Federal Confidentiality of Alcohol and Drug Abuse Patient Records regulations: The Federal rules restrict any use of the information to criminally investigate or prosecute any alcohol or drug abuse patient.[facility] DaytonIn the event this information is protected by the Federal Confidentiality of Alcohol and Drug Abuse Patient Records regulations: The Federal rules restrict any use of the information to criminally investigate or prosecute any alcohol or drug abuse patient.[facility]In the event this information is protected by the Federal Confidentiality of Alcohol and Drug Abuse Patient Records regulations: The Federal rules restrict any use of the information to criminally investigate or prosecute any alcohol or drug abuse patient.[facility] DaytonIn the event this information is protected by the Federal Confidentiality of Alcohol and Drug Abuse Patient Records regulations: The Federal rules restrict any use of the information to criminally investigate or prosecute any alcohol or drug abuse patient.[facility] DaytonIn the event this information is protected by the Federal Confidentiality of Alcohol and Drug Abuse Patient Records regulations: The Federal rules restrict any use of the information to criminally investigate or prosecute any alcohol or drug abuse patient.[facility] DaytonIn the event this information is protected by the Federal Confidentiality of Alcohol and Drug Abuse Patient Records regulations: The Federal rules restrict any use of the information to criminally investigate or prosecute any alcohol or drug abuse patient.[facility] DaytonIn the event this information is protected by the Federal Confidentiality of Alcohol and Drug Abuse Patient Records regulations: The Federal rules restrict any use of the information to criminally investigate or prosecute any alcohol or drug abuse patient.[facility] DaytonIn the event this information is protected by the Federal Confidentiality of Alcohol and Drug Abuse Patient Records regulations: The Federal rules restrict any use of the information to criminally investigate or prosecute any alcohol or drug abuse patient.[facility] DaytonIn the event this information is protected by the Federal Confidentiality of Alcohol and Drug Abuse Patient Records regulations: The Federal rules restrict any use of the information to criminally investigate or prosecute any alcohol or drug abuse patient.[facility] FOR RECORDS PERTAINING TO PATIENTS WHO ARE OR HAVE BEEN ENROLLED IN A CHEMICAL DEPENDENCY/SUBSTANCEABUSE PROGRAM, SOME INFORMATION MAY BE OMITTED. This clinical summary was aggregated from multiple sources. Caution should be exercised in using it in the provision of clinical care. This summary normalizes information from multiple sources, and as a consequence, information in this document may materially change the coding, format and clinical context of patient data. In addition, data may be omitted in some cases. CLINICAL DECISIONS SHOULD BE BASED ON THE PRIMARY CLINICAL RECORDS. [employer] [facility]. provides no warranty or guarantee of the accuracy or completeness of information in this document.
[2024-11-19 00:03] VITALS: BP 125/85; PULSE 75; RESP 16; TEMP 36.3
[2024-11-19 01:46] VITALS: PULSE 67; O2SAT 97
[2024-11-19 01:51] VITALS: PULSE 72; O2SAT 98
[2024-11-19 01:56] VITALS: PULSE 62; O2SAT 98
--- NOTE | 2024-11-19 13:24 | OB.TRI.NOTE ---
HPI - General General Date of Admission: 11/18/24 Date of Service: 11/18/24 Chief Complaint: contractions HPI Narrative MARYANA BERRY, is a 19 F who presents c/o ctxs. Maternal Data Information Final COTY: 12/02/24 Gestational age: 38 0/7 PFSH PFS Medical History (Updated 11/19/24 @ 11:[address] Hallie Berg MD) Chlamydia infection affecting History of pre-term labor Gallstones Preeclampsia Home Medications ?Medication ?Instructions ?Recorded ?Last Taken ?Type vit no.95-ferrous 1 tab PO DAILY 07/18/24 11/11/24 History fumarate 28 mg-folic acid 800 mcg tablet () Allergy/AdvReac Type Severity Reaction Status Date / Time bee venom protein (honey Allergy Severe Anaphylaxis Verified 11/18/24 23:59 bee) (bee sting) Sulfa (Sulfonamide Allergy Severe Anaphylaxis Verified 11/18/24 23:59 Antibiotics) Surgical History (Updated 11/19/24 @ 06:51 by Ivelisse Forbes) History of surgery Social History household members: family and children Smoking Status: Never smoker History Elective abortions Hx Para 1 Spontaneous abortions Hx # Term Pregnancies Ectopic pregnancies Hx # Pregnancies Multiple births # of living children NST FHR Rate Baby A Baseline: 110 Variability:: Moderate Accelerations:: 15 x 15 Decelerations:: Variable (difficult to interpret if late decels at times) NST Reactive:: Yes Uterine Activity:: ctxs q 2-5 min Assessment & Plan (1) 38 weeks gestation of : (2) Uterine contractions: PLAN: patient d/justin home to f/u prn, returned early in am in spont labor (3) Supervision of high risk in third trimester:
== END 2024-11-19 02:05 | disposition home or self-care (01) ==
LOC: WPOUT 23:53 → WP 23:54
PROVIDERS: Visit Provider Obstetrics & Gynecology
DX: O47.1 False labor at or after 37 completed weeks of gestation (principal); Z3A.38 38 weeks gestation of pregnancy
CPT/HCPCS: 59025; 59050; 99221; G0378

== ENCOUNTER 2024-11-19 06:15 | Inpatient (IN) | payer OTHER, MEDICAID, SELFPAY ==
[2024-11-19] VITALS (38 sets, daily range): BP systolic 99–137; BP diastolic 56–90; PULSE 57–85; RESP 16; TEMP 36–36.6; O2SAT 90–100; BMI 30.4
--- OUTSIDE RECORDS SUMMARY | 2024-11-19 05:32 | XMS RPT_ITS | CCD ---
Author Organization [facility] Care Team Providers Care Repair Clerk Name Role Phone Cortney Quiroz Primary Care Provider CORTNEY QUINONES Primary Care Unavailable ALEXANDRE CASILLAS Attending Unavailable ALEXANDRE CASILLAS Attending Unavailable CORTNEY QUINONES Primary Care Unavailable Cortney Quiroz Primary Care Provider None, No PCP Unavailable Unavailable Unavailable Unavailable VIDA FRAIRE Attending Unavailable CORTNEY QUINONES Primary Care Unavailable CORTNEY QUINONES Primary Care Unavailable HINA WINTER Referring Unavailable Unavailable Primary Care Provider Unavailabl e Schwochow MANAGER R D-CNM, Alycia R Unavailable [phone] ALYCIA VICENTE Attending Unavailable SCHWALYCIA CANELA Attending Unavailable BENITO MCCARTHY Attending Unavailable SCHWALYCIA CANELA Attending Unavailable ELSA KELLY Attending Unavailable SCHWALYCIA CANELA Attending Unavailable SCHWALYCIA CANELA Attending Unavailable BUCK KAHN Admitting Unavailable EVELYN GOODSON Attending Unavailable BRYAN US Admitting Unavailable BRYAN US Attending Unavailable GRACIE, DIYA Fabricio Admitting Unavailable GRACIEDIYA HOGAN E Attending Unavailable Unavailable Primary Care Provider Unavailabl e Schwochow MANAGER R D-CNM, Alycia R Unavailable [phone] Generic Provider MD, No Assigned Pcp Primary Car e Provider Unavailable Care Physician, No Primary Primary Care Unava ilable Tyrell Spencer Attending Unavailable Tyrell Spencer Referring Unavailable Care Physician, No Primary Primary [...] Attending Unavailable JEFFREY, PRISCILLA Referring Unavailable NAREN BULALRD Attending Unavailable WISWELL, JENNIFER Attending Unavailable Allergies Allergy Classification Reported Allergen(s) Allergy Type Date of Onset Reaction(s) Facility Bee/Wasp/Ant Venom (3 sources) bee venom Substance Allergy 9 Swelling [facility] Sulfonamides (antibiotic) (3 sources) Sulfonamides (Antibiotic) Drug Allergy 9 [facility] (20 sources) bee venom Propensity to adverse reactions to drug 9 Swelling, Anaphylaxis [facility] (20 sources) Sulfonamides (Antibiotic) Propensity to adverse reactions to drug 9 Swelling, Hives [facility] (3 sources) apis mellifera venom Allergy to substance (finding) [facility]-OB[facility]N [facility] [place] [address] M DO Work Phone: (3 sources) Sulfamethoxazole ; Translations: [sulfa] Drug Allergy MG-OBGYN [facility] [place] [address] M DO Work Phone: (5 sources) Sulfonamides (Antibiotic); Translations: [SULFA (SULFONAMIDE ANTIBIOTICS)] Propensity to adverse reactions to drug (disorder) 9 [facility] 3 Repository (4 sources) BEE VENOM PROTEIN (HONEY BEE); Translations: [BEE VENOM PROTEIN (HONEY BEE)] Propensity to adverse reactions to drug (disorder) 4 [facility] 3 Repository (1 source) VENOM-HONEY BEE; Translations: [VENOM-HONEY BEE] Propensity to adverse reactions to drug (disorder) 9 [facility] Repository Medications Current Medications Medication Drug Class(es) [...] signs and symptoms of magnesium toxicity including: 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 Start: 06-15-2023 take 1 capsule by [facility] once as needed for hypertension 10 mg, [...] sodium chloride 0.9% 30 units/500 mL PNV no.827-MN-dk3-dha-epa-fi sh ( GUMMIES) 400 mcg-35 mg- 25 mg-5 mg chew (18 sources) PNV no.361-RD-pf3-hux-znc-dndx ( GUMMIES) 400 mcg-35 mg- 25 mg-5 mg chew Take 1 Piece by mouth once daily. Active polyethylene glycol 3350 170 00 mg powder for oral solution (1 source) Osmotic Laxative Star t: 06-05 24 17 g, oral, 2 times daily PRN, constipation, first line, Starting on Mon06/15/23 at 0900 Clbyxnqf-Lne-Dl-FA (PRE-VIET FORMULA) TABS (4 sources) Star t: 06- 23 take 1 tablet by mouth once daily Qakjtkjl-Prj-Dw-FA (PRE-VIET FORMULA) TABS Indications: at early stage Take 1 tablet by mouth daily 30 tablet 1 11/08/2022 Active Start: 09-30-2020 take 1 tablet by manuel th once daily Cnyfayju-Jdk-Gv-FA (PRE- FORMULA) TABS Indications: Missed period , [...] prior to administration Tranexamic Acid Indication: 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: 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 medicated pad (1 [...] the puerperium; 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 Other complications of (1 [...] of ; Translations: [37 weeks gestation of ([facility])] Onset: 11-12-2024 Episodic Residual codes; unclassified (1 source) 36 weeks gestation of ; Translations: [36 weeks gestation of ([facility])] Onset: 11-04-2024 Episodic Residual codes; unclassified (1 source) 34 weeks gestation of ; Translations: [34 weeks gestation of ([facility])] Onset: 10-21-2024 Episodic Residual codes; unclassified (1 [...] B/Oon Glucose Ql (U) Negative Neg mg/dL [facility] Interpretation and review of laboratory results Normal [facility] Protein.monoclonal (U) [Mass/Vol] Negative Neg mg/dL [facility] CBC W Auto Differential pane l (Bld)on 11-12-2024 Basophils (Bld) [#/Vol] 0.05 10*3/uL [facility] Basophils/100 WBC (Bld) 0.4 % 0.0 - 2.0 % [facility] Eosinophils (Bld) [#/Vol] 0.14 10*3/uL [facility] Eosinophils/100 WBC (Bld) 1.1 % 0.0 - 6.0 % [facility] Erythrocyte distribution width (RBC) [Ratio] 13.5 % 11.5 - 14.5 % [facility] Hematocrit (Bld) [Volume fraction] 26.3 % Low 36.0 - 46.0 % [facility] Hemoglobin (Bld) [Mass/Vol] 8.2 g/dL Low 12.0 - 16.0 g/dL [facility] Immature granulocytes (Bld) [#/Vol] 0.11 10*3/uL [facility] Immature granulocytes/100 WBC (Bld) 0.9 % 0.0 - 0.9 % [facility] Comment on above: Immature Granulocyte Count (IG) includes promyelocytes, myelocytes and metamyelocytes but does not include bands. Percent differential counts (%) should be interpreted in the context of the absolute cell counts (cells/UL). Interpretation and review of laboratory results Abnormal [facility] Lymphocytes (Bld) [#/Vol] 2.75 10*3/uL [facility] Lymphocytes/100 WBC (Bld) 22.4 % 13.0 - 44.0 % [facility] MCH (RBC) [Entitic mass] 24.7 pg Low 26.0 - 34.0 pg [facility] MCHC (RBC) [Mass/Vol] 31.2 g/dL Low 32.0 - 36.0 g/dL [facility] MCV (RBC) [Entitic vol] 79 fL Low 80 - 100 fL [facility] Monocytes (Bld) [#/Vol] 0.77 10*3/uL [facility] Monocytes/100 WBC (Bld) 6.3 % 2.0 - 10.0 % [facility] Neutrophils (Bld) [#/Vol] 8.46 10*3/uL High [facility] Comment on above: Percent differential counts (%) should be interpreted in the context of the absolute cell counts (cells/uL). Neutrophils/100 WBC (Bld) 68.9 % 40.0 - 80.0 % [facility] Nucleated RBC/100 WBC (Bld) [Ratio] 0 % [facility] Platelets (Bld) [#/Vol] 234 10*3/uL [facility] RBC (Bld) [#/Vol] 3.32 10*6/uL Low Unive [facility] WBC (Bld) [#/Vol] 12.3 10*3/uL High [facility] Basophils (Bld) [#/Vol] 0.05 x10*3/uL Normal 0.00-0.10 [facility] Comment on above: Performed By: #### 5 7021-8 #### MELLO TOWNSEND ([id number]) [facility] ([facility]) [address] [place] [address] 74482 Basophils/100 WBC (Bld) 0.4 % Normal 0.0-2.0 [facility] Comment on above: Performed By: #### 5 7021-8 #### MELLO TOWNSEND ([id number]) [facility] ([facility]) [address] [place] [address] 21865 Eosinophils (Bld) [#/Vol] 0.14 x10*3/uL Normal 0.00-0.70 [facility] Comment on above: Performed By: #### 5 7021-8 #### MELLO TOWNSEND ([id number]) [facility] ([facility]) [address] [place] [address] 26586 Eosinophils/100 WBC (Bld) 1.1 % Normal 0.0-6.0 [facility] Comment on above: Performed By: #### 5 7021-8 #### MELLO TOWNSEND ([id number]) [facility] ([facility]) [address] [place] [address] 04833 Erythrocyte distribution width (RBC) [Ratio] 13.5 % Normal 11.5-14.5 [facility] Comment on above: Performed By: #### 5 7021-8 #### MELLO TONWSEND ([id number]) [facility] ([facility]) [address] [place] [address] 89298 Hematocrit (Bld) [Volume fraction] 26.3 % Low 36.0-46.0 [facility] Comment on above: Performed By: #### 5 7021-8 #### MELLO TOWNSEND ([id number]) [facility] ([facility]) [address] [place] [address] 83167 Hemoglobin (Bld) [Mass/Vol] 8.2 g/dL Low 12.0-16.0 [facility] Comment on above: Performed By: #### 5 7021-8 #### MELLO TOWNSEND ([id number]) [facility] ([facility]) [address] [place] [address] 77711 Immature granulocytes (Bld) [#/Vol] 0.11 x10*3/uL Normal 0.00-0.70 [facility] Comment on above: Performed By: #### 5 7021-8 #### MELLO TOWNSEND ([id number]) [facility] ([facility]) [address] [place] [address] 41652 Immature granulocytes/100 WBC (Bld) 0.9 % Normal 0.0-0.9 [facility] Comment on above: Result Comment: Sheila ture Granulocyte Count (IG) includes promyelocytes, myelocytes and metamyelocytes but does not include bands. Percent differential counts (%) should be interpreted in the context of the absolute cell counts (cells/UL). Performed By: #### 5 7021-8 #### MELLO TOWNSEND ([id number]) [facility] ([facility]) [address] [place] [address] 09237 Lymphocytes (Bld) [#/Vol] 2.75 x10*3/uL Normal 1.20-4.80 [facility] Comment on above: Performed By: #### 5 7021-8 #### MELLO TOWNSEND ([id number]) [facility] ([facility]) [address] [place] [address] 64919 Lymphocytes/100 WBC (Bld) 22.4 % Normal 13.0-44.0 [facility] Comment on above: Performed By: #### 5 7021-8 #### MELLO TOWNSEND ([id number]) [facility] ([facility]) [address] [place] [address] 53108 MCH (RBC) [Entitic mass] 24.7 pg Low 26.0-34.0 [facility] Comment on above: Performed By: #### 5 7021-8 #### MELLO TOWNSEND ([id number]) [facility] ([facility]) [address] [place] [address] 03061 MCHC (RBC) [Mass/Vol] 31.2 g/dL Low 32.0-36.0 [facility] Comment on above: Performed By: #### 5 7021-8 #### MELLO TOWNSEND ([id number]) [facility] ([facility]) [address] [place] [address] MCV (RBC) [Entitic vol] 79 fL Low 80-100 [facility] Comment on above: Performed By: #### 5 7021-8 #### MELLO TOWNSEND ([id number]) [facility] ([facility]) [address] [place], [place] [id number] Monocytes (Bld) [#/Vol] 0.77 x10*3/uL Normal 0.10-1.00 [facility] Comment on above: Performed By: #### 5 7021-8 #### MELLO TOWNSEND ([id number]) [facility] ([facility]) [address] [place] [address] 77236 Monocytes/100 WBC (Bld) 6.3 % Normal 2.0-10.0 [facility] Comment on above: Performed By: #### 5 7021-8 #### MELLO TOWNSEND ([id number]) [facility] ([facility]) [address] [place] [address] 44720 Neutrophils (Bld) [#/Vol] 8.46 x10*3/uL High 1.20-7.70 [facility] Comment on above: Result Comment: Perc ent differential counts (%) should be interpreted in the context of the absolute cell counts (cells/uL). Performed By: #### 5 7021-8 #### MELLO TOWNSEND ([id number]) [facility] ([facility]) [address] [place] [address] 26318 Neutrophils/100 WBC (Bld) 68.9 % Normal 40.0-80.0 [facility] Comment on above: Performed By: #### 5 7021-8 #### MELLO TOWNSEND ([id number]) [facility] ([facility]) [address] [place] [address] 57805 Nucleated RBC/100 WBC (Bld) [Ratio] 0.0 /100 WBCs Normal 0.0-0.0 [facility] Comment on above: Performed By: #### 5 7021-8 #### MELLO TOWNSEND ([id number]) [facility] ([facility]) [address] [place] [address] 81555 Platelets (Bld) [#/Vol] 234 x10*3/uL Normal 150-450 [facility] Comment on above: Performed By: #### 5 7021-8 #### MELLO TOWNSEND ([id number]) [facility] ([facility]) [address] [place] [address] 49730 RBC (Bld) [#/Vol] 3.32 x10*6/uL Low 4.00-5.20 [facility] Comment on above: Performed By: #### 5 7021-8 #### MELLO TOWNSEND ([id number]) [facility] ([facility]) [address] [place] [address] 12188 WBC (Bld) [#/Vol] 12.3 x10*3/uL High 4.4-11.3 [facility] Comment on above: Performed By: #### 5 7021-8 #### MELLO TOWNSEND ([id number]) [facility] ([facility]) [address] [place] [address] ANGIO CHEST FOR PULMONARY EMBOLISMon 11-12-2024 CT ANGIO CHEST FOR PULMONARY EMBOLISM Interpreted By: Matt Osborn, STUDY: CT ANGIO CHEST FOR PULMONARY EMBOLISM; 11/12/2024 5:59 pm INDICATION: Signs/Symptoms:lighthead ed, right rib pain. COMPARISON: 10/06/2024 ACCESSION NUMBER(S): [id number] ORDERING CLINICIAN: MITRA HASTINGS TECHNIQUE: Helical data [...] Matt Osborn 11/12/2024 6:23 PM Dictation workstation: [id number] [facility] CT Chest W contrast IV and C T angiogram Pulmonary arteries for pulmonary embolus W contrast Johanna 11-12-2024 No evidence of pulmo nary embolism. Cholelithiasis. Signed by: Matt Osborn 11/12/2024 6:23 PM Dictation workstation: [id number] MMODAL Interpreted By: Matt Osborn, STUDY: CT ANGIO CHEST FOR PULMONARY EMBOLISM; 11/12/2024 5:59 pm INDICATION: Signs/Symptoms:lighthead ed, right rib pain. COMPARISON: 10/06/2024 ACCESSION NUMBER(S): [id number] ORDERING CLINICIAN: MITRA HASTINGS TECHNIQUE: Helical data [...] right rib pain. COMPARISON: 10/06/2024 ACCESSION NUMBER(S): [id number] ORDERING CLINICIAN: MITRA HASTINGS TECHNIQUE: Helical data [...] Matt Osborn 11/12/2024 6:23 PM Dictation workstation: [id number] [facility] Work Phone: Radiology Study observation (narrative) [facility] Work Phone: CT Chest W contrast IV and C T angiogram Pulmonary arteries for pulmonary embolus W contrast IVOrdered By: Matt Osborn on 11-12-2024 [facility] Work Phone: Coagulation surface inducedo n 11-12-2024 aPTT Coag (PPP) [Time] 22 s Low 26-36 [facility] Comment on above: Order Comment: The V TE Exclusion D-Dimer assay is reported in ng/mL Fibrinogen Equivalent Units (FEU). Per watch crystal grinder's instructions for use, a value of less [...] By: #### 4 8065-7 #### SARKAR KRISTIAN ([id number]) [facility] ([facility]) [address] [place] [address] Coagulation tissue factor in ducedon 11-12-2024 PT Coag (PPP) [Time] 10.5 s Normal 9.8-12.4 [facility] Comment on above: Performed By: #### 4 8065-7 #### SARKAR KRISTIAN ([id number]) [facility] ([facility]) [facility] [place] [id number] Comprehensive metabolic 2000 panelon 11-12-2024 Albumin BCP dye [Mass/Vol] 3.2 g/dL Low 3.4 - 5.0 g/dL [facility] ALP [Catalytic activity/Vol] 280 U/L High 33 - 110 U/L [facility] ALT With P-5'-P [Catalytic activity/Vol] 12 U/L 7 - 45 U/L [facility] Comment on above: Patients treated wit h Sulfasalazine may generate falsely decreased results for ALT. Anion gap [Moles/Vol] 12 mmol/L 10 - 20 mmol/L [facility] AST With P-5'-P [Catalytic activity/Vol] 22 U/L 9 - 39 U/L [facility] Comment on above: MILD HEMOLYSIS DETEC SYLVIE. The result may be falsely elevated due to hemolysis or other interferents. Clinical correlation is recommended. Repeat testing may be considered. Bilirubin [Mass/Vol] 0.4 mg/dL 0.0 - 1 .2 mg/dL [facility] Calcium [Mass/Vol] 8.9 mg/dL 8.6 - 10. 3 mg/dL [facility] Chloride [Moles/Vol] 103 mmol/L 98 - 10 7 mmol/L [facility] CO2 [Moles/Vol] 23 mmol/L 21 - 32 mmol/L [facility] Creatinine [Mass/Vol] 0.55 mg/dL 0.50 - 1.05 mg/dL [facility] eGFR - PINF [facility] Comment on above: Calculations of andrey mated GFR are performed using the 2020 CKD-EPI Study Refit equation without the race variable for the IDMS-Traceable creatinine methods. https://jasn.asnjournals.org/content/early//ASN.5402396 988 Glucose [Mass/Vol] 86 mg/dL 74 - 99 mg/dL [facility] Interpretation and review of laboratory results Abnormal [facility] Potassium [Moles/Vol] 4 mmol/L 3.5 - 5.3 mmol/L [facility] Comment on above: MILD HEMOLYSIS DETEC SYLVIE. The result may be falsely elevated due to hemolysis or other interferents. Clinical correlation is recommended. Repeat testing may be considered. Protein [Mass/Vol] 7 g/dL 6.4 - 8.2 g/dL [facility] Sodium [Moles/Vol] 134 mmol/L Low 136 - 145 mmol/L [facility] Urea nitrogen [Mass/Vol] 8 mg/dL 6 - 23 mg/dL [facility] Albumin BCP dye [Mass/Vol] 3.2 g/dL Low 3.4-5.0 [facility] Comment on above: Performed By: #### 4 8065-7 #### MELLO TOWNSEND ([id number]) [facility] ([facility]) [address] [place] [address] ALP [Catalytic activity/Vol] 280 U/L High 33-110 [facility] Comment on above: Performed By: #### 4 8065-7 #### MELLO TOWNSEND ([id number]) [facility] ([facility]) [address] [place] [address] 79774 ALT With P-5'-P [Catalytic activity/Vol] 12 U/L Normal 7-45 [facility] Comment on above: Result Comment: Zaira ents treated with Sulfasalazine may generate falsely decreased results for ALT. Performed By: #### 4 8065-7 #### MELLO TOWNSEND ([id number]) [facility] ([facility]) [address] [place] [address] 89733 Anion gap [Moles/Vol] 12 mmol/L Normal 10-20 [facility] Comment on above: Performed By: #### 4 8065-7 #### MELLO TOWNSEND ([id number]) [facility] ([facility]) [address] [place] [address] 03792 AST With P-5'-P [Catalytic activity/Vol] 22 U/L Normal 9-39 [facility] Comment on above: Result Comment: MILD HEMOLYSIS DETECTED. The result may be falsely elevated due to hemolysis or other interferents. Clinical correlation is recommended. Repeat testing may be considered. Performed By: #### 4 8065-7 #### MELLO TOWNSEND ([id number]) [facility] ([facility]) [address] [place] [address] Bilirubin [Mass/Vol] 0.4 mg/dL Normal 0.0-1.2 [facility] Comment on above: Performed By: #### 4 8065-7 #### MELLO TOWNSEND ([id number]) [facility] ([facility]) [address] [place] [address] 89235 Calcium [Mass/Vol] 8.9 mg/dL Normal 8.6-10.3 [facility] Comment on above: Performed By: #### 4 8065-7 #### MELLO TOWNSEND ([id number]) [facility] ([facility]) [address] [place] [address] Chloride [Moles/Vol] 103 mmol/L Normal 98-107 [facility] Comment on above: Performed By: #### 4 8065-7 #### MELLO TOWNSEND ([id number]) [facility] ([facility]) [address] [place] [address] CO2 [Moles/Vol] 23 mmol/L Normal 21-32 [facility] Comment on above: Performed By: #### 4 8065-7 #### MELLO TOWNSEND ([id number]) [facility] ([facility]) [address] [place] [address] Creatinine [Mass/Vol] 0.55 mg/dL Normal 0.50-1.05 [facility] Comment on above: Performed By: #### 4 8065-7 #### MELLO TOWNSEND ([id number]) [facility] ([facility]) [address] [place] [address] GFR/1.73 sq M.predicted MDRD (S/P/Bld) [Vol rate/Area] mL/min/{1.73_m2} Normal >60 [facility] Comment on above: Result Comment: Calc ulations of estimated GFR are performed using the 2020 CKD-EPI Study Refit equation without the race variable for the IDMS-Traceable creatinine methods. https://jasn.asnjournals.org/content//ASN.5931330 988 Performed By: #### 4 8065-7 #### MELLO TOWNSEND ([id number]) [facility] ([facility]) [address] [place] [address] 49023 Glucose [Mass/Vol] 86 mg/dL Normal 74-99 [facility] Comment on above: Performed By: #### 4 8065-7 #### MELLO TOWNSEND ([id number]) [facility] ([facility]) [address] [place] [address] 07243 Potassium [Moles/Vol] 4.0 mmol/L Normal 3.5-5.3 [facility] Comment on above: Result Comment: MILD HEMOLYSIS DETECTED. The result may be falsely elevated due to hemolysis or other interferents. Clinical correlation is recommended. Repeat testing may be considered. Performed By: #### 4 8065-7 #### MELLO TOWNSEND ([id number]) [facility] ([facility]) [address] [place] [address] 38729 Protein [Mass/Vol] 7.0 g/dL Normal 6.4-8.2 [facility] Comment on above: Performed By: #### 4 8065-7 #### MELLO TOWNSEND ([id number]) [facility] ([facility]) [address] [place] [address] 00384 Sodium [Moles/Vol] 134 mmol/L Low 136-145 [facility] Comment on above: Performed By: #### 4 8065-7 #### MELLO TOWNSEND ([id number]) [facility] ([facility]) [address] [place] [address] 58070 Urea nitrogen [Mass/Vol] 8 mg/dL Normal 6-23 [facility] Comment on above: Performed By: #### 4 8065-7 #### MELLO TOWNSEND ([id number]) [facility] ([facility]) [address] [place] [address] D-Dimer, VTE Exclusionon Fibrin D-dimer FEU (PPP) [Mass/Vol] 1887 High NINF [facility] ECG 12-LEADon 11-12-2024 ECG 12-LEAD Ventricular Rate 94 Atrial Rate 94 P-R Interval 122 QRS Duration 86 Q-T Interval 328 QTC Calculation(Bazett) 410 P [place] 71 R [place] 91 T [place] 36 QRS Count 15 Q Onset 218 P Onset 157 P Offset 203 T Offset 382 QTC Fredericia 381 Diagnosis Normal sinus rhythm Rightward axis Borderline ECG When compared with ECG of 06-OCT-2024 16:46, No significant change was found See ED provider note for full interpretation and clinical correlation Confirmed by Mitra Rice ([id number]) on 11/13/2024 7:04:[address] [facility] Fibrin D-dimer FEUon 025 Fibrin D-dimer FEU (PPP) [Mass/Vol] 1887 ng/mL FEU High <=500 [facility] Comment on above: Order Comment: The V TE Exclusion D-Dimer assay is reported in ng/mL Fibrinogen Equivalent Units (FEU). Per watch crystal grinder's instructions for use, a value of less [...] By: #### 4 8065-7 #### MELLO TOWNSEND ([id number]) [facility] ([facility]) [facility] [place] [address] Fibrin D-dimer FEU (PPP) [Ma ss/Vol]on 11-12-2024 The VTE Exclusion D-Dimer assay is reported in ng/mL Fibrinogen Equivalent Units (FEU). Per watch crystal grinder's instructions for use, a value of less [...] assessment model for DVT or PE exclusion.) [facility] Lipaseon 11-12-2024 Lipase [Catalytic activity/Vol] 18 U/L 9 - 82 U/L [facility] Lipase [Catalytic activity/V ol]on 11-12-2024 Interpretation and review of laboratory results Normal [facility] Venipuncture immedia tely after or during the administration of Metamizole may lead to falsely low results. Testing should be performed immediately prior to Metamizole dosing. [facility] Magnesiumon 11-12-2024 Magnesium [Mass/Vol] 1.87 mg/dL 1.60 - 2.40 mg/dL [facility] Magnesium [Mass/Vol] 1.87 mg/dL Normal 1.60-2.40 [facility] Comment on above: Performed By: #### 4 8065-7 #### MELLO TOWNSEND ([id number]) [facility] LAB ([facility]) [address] [place] [address] Magnesium [Mass/Vol]on 11-12 Interpretation and review of laboratory results Normal [facility] No Panel Informationon 11-12 [facility] Interpretation and review of laboratory results Abnormal [facility] PT Coag (PPP) [Time]on 11-12 INR Coag (PPP) [Relative time] 0.9 {INR} 0.9 - 1.1 [facility] Interpretation and review of laboratory results Normal [facility] INR Coag (PPP) [Relative time] 0.9 Normal 0.9-1.1 [facility] Comment on above: Performed By: #### 4 8065-7 #### MELLO TOWNSEND ([id number]) [facility] ([facility]) [address] [place], [place] [id number] Protime-INRon 11-12-2024 PT Coag (PPP) [Time] 10.5 s [facility] Triacylglycerol lipaseon Lipase [Catalytic activity/Vol] 18 U/L Normal 9-82 [facility] Comment on above: Order Comment: The V TE Exclusion D-Dimer assay is reported in ng/mL Fibrinogen Equivalent Units (FEU). Per watch crystal grinder's instructions for use, a value of less [...] By: #### 4 8065-7 #### SARKAR KRISTIAN ([id number]) [facility] ([facility]) [address] [place] [address] Tropinin I.cardiac panel Hig h sensitivity methodon 11-12-2024 Interpretation and review of laboratory results Normal [facility] Less than 99th percentile of normal range [...] performed using a different testing methodology at [facility] than at other [facility]. Direct result comparisons should only be made within the same method. [facility] Interpretation and review of laboratory results Normal [facility] Less than 99th percentile of normal range [...] performed using a different testing methodology at [facility] than at other [facility]. Direct result comparisons should only be made within the same method. [facility] Troponin I, High Sensitivity , Initialon 11-12-2024 Tropinin I.cardiac panel High sensitivity method 9 ng/L 0 - 13 ng/L [facility] Troponin I.cardiac panelon 0 11-12-2024 Tropinin I.cardiac panel High sensitivity method 5 ng/L Normal 0-13 [facility] Comment on above: Order Comment: The V TE Exclusion D-Dimer assay is reported in ng/mL Fibrinogen Equivalent Units (FEU). Per watch crystal grinder's instructions for use, a value of less [...] By: #### 4 8065-7 #### SARKAR KRISTIAN ([id number]) [facility] ([facility]) [address] [place] [address] Tropinin I.cardiac panel High sensitivity method 9 ng/L Normal 0-13 [facility] Comment on above: Order Comment: The V TE Exclusion D-Dimer assay is reported in ng/mL Fibrinogen Equivalent Units (FEU). Per watch crystal grinder's instructions for use, a value of less [...] By: #### 4 8065-7 #### SARKAR KRISTIAN ([id number]) [facility] ([facility]) [address] [place] [address] Troponin, High Sensitivity, 1 Houron 11-12-2024 Tropinin I.cardiac panel High sensitivity method 5 ng/L 0 - 13 ng/L [facility] aPTTon 11-12-2024 aPTT Coag (PPP) [Time] 22 s Low [facility] aPTT Coag (PPP) [Time]on The APTT is no longe r used for monitoring Unfractionated Heparin Therapy. For monitoring Heparin Therapy, use the Heparin Assay. [facility] CNPNon 11-08-2024 CNPN Telephone (OBGYWM) -------- MARYANA WILLIAM ([id number]) 1 F Date Time Provider Department 11/08/24 [...] to leave message because mailbox is full. [employer] message sent. SOULEYMANE Walter Trisha, RN 11/08/2024 [...] tablet by mouth once daily. - PNV no.402-CV-tf4-dha-epa-fi sh ( GUMMIES) 400 mcg-35 mg- 25 [...] third trimester *09/09/2024 [facility]10/10/2024 Encounter Status:Closed by ANAYELI MURRY on 11/08/24 Normal [facility] ROUTINE, GROUP B ST REPTOCOCCUS BY PCRon 11-04-2024 ROUTINE, GROUP B STREPTOCOCCUS BY PCR Not detected Normal [facility] Comment on above: Performed By: #### T SPN #### CC MAIN BLOOD BANK [facility] [id number] [address] [place] [address] URINE OB DIP B/Oon Glucose Ql (U) Negative Neg mg/dL [facility] Interpretation and review of laboratory results Normal [facility] Protein.monoclonal (U) [Mass/Vol] Negative Neg mg/dL [facility] CNPNon 10-25-2024 CNPN Telephone (OBGYWM) -------- MARYANA WILLIAM ([id number]) 1 F Date Time Provider Department 10/25/24 [...] in diet.- Drink some Gatorade or Powerade. OFX Ruiz Jennifer, RN 10/25/2024 4:33 PM Signed [...] tablet by mouth once daily. - PNV no.648-PQ-gl3-dha-epa-fi sh ( GUMMIES) 400 mcg-35 mg- 25 [...] Encounter Status:Closed by ANAYELI MURRY on [facility] (OBGYWM) -------- MARYANA WILLIAM ([id number]) 1 F Date Time Provider Department 10/24/24 [...] tablet by mouth once daily. - PNV no.450-KV-mo7-dha-epa-fi sh ( GUMMIES) 400 mcg-35 mg- 25 mg-5 mg chew Take 1 Piece by mouth once daily. Meds Comments as of 02/06/2009: No current meds, reviewed 02/06/2009. Pily Zavala [facility] Problem List As Of Date 10/24/2024 Noted Resolved ECZEMA [L25.8] Supervision of high risk , antepartum *06/10/2024 Late care affecting in secon*06/10/2024 Hx of pre-eclampsia in prior , current*06/2023 Anemia complicating , third trimester *09/09/2024 Pneumonia affecting in third trimeste*10/10/2024 Encounter Status:Closed by ZNIA ORNELAS on 10/24/24 Normal [facility] URINE OB DIP B/Oon Glucose Ql (U) Negative Neg mg/dL [facility] Interpretation and review of laboratory results Normal [facility] Protein.monoclonal (U) [Mass/Vol] Negative Neg mg/dL [facility] CNPNon 10-07-2024 CNPN Telephone (OBGYWM) -------- MARYANA WILLIAM ([id number]) 1 F Date Time Provider Department 10/07/24 JENNIFER DE LA TORRE OBJENNIFERWDeborah During your visit today, we recorded the following information about you: Sanjuana Caceres, SOULEYMANE 10/07/2024 9:39 AM Signed Please check in on patient this morning and get an update from ER visit thanks Sanjuana Aguilar RN 10/07/2024 9:39 AM Signed 32w0d Updated Care Everywhere. Patient was seen at [facility]. See notes available in Epic now. Dx: [...] fit her schedule. Stating she went to [facility] 3 days ago, then to [facility] 10/06. States dx Pneumonia and given IV antibiotics. States she is feeling improvement with the shortness of breath and denies at this time. Was prescribed PO Augmentin and plans to pharmacy picking tech Rx today. Advised to continue to push [...] tablet by mouth once daily. - PNV no.497-XS-vl6-dha-epa-fi sh ( GUMMIES) 400 mcg-35 mg- 25 [...] Status:Closed by SANJUANA CACERES on 10/08/24 Normal [facility] CBC W Auto Differential pane l (Bld)on 10-06-2024 Basophils (Bld) [#/Vol] 0.04 10*3/uL [facility] Basophils/100 WBC (Bld) 0.3 % 0.0 - 2.0 % [facility] Eosinophils (Bld) [#/Vol] 0.11 10*3/uL [facility] Eosinophils/100 WBC (Bld) 0.9 % 0.0 - 6.0 % [facility] Erythrocyte distribution width (RBC) [Ratio] 12.3 % 11.5 - 14.5 % [facility] Hematocrit (Bld) [Volume fraction] 29.7 % Low 36.0 - 46.0 % [facility] Hemoglobin (Bld) [Mass/Vol] 9.8 g/dL Low 12.0 - 16.0 g/dL [facility] Immature granulocytes (Bld) [#/Vol] 0.1 10*3/uL [facility] Immature granulocytes/100 WBC (Bld) 0.8 % 0.0 - 0.9 % [facility] Comment on above: Immature Granulocyte Count (IG) includes promyelocytes, myelocytes and metamyelocytes but does not include bands. Percent differential counts (%) should be interpreted in the context of the absolute cell counts (cells/UL). Interpretation and review of laboratory results Abnormal [facility] Lymphocytes (Bld) [#/Vol] 2.36 10*3/uL [facility] Lymphocytes/100 WBC (Bld) 18.3 % 13.0 - 44.0 % [facility] MCH (RBC) [Entitic mass] 27.1 pg 26.0 - 34.0 pg [facility] MCHC (RBC) [Mass/Vol] 33 g/dL 32.0 - 36.0 g/dL [facility] MCV (RBC) [Entitic vol] 82 fL 80 - 100 fL [facility] Monocytes (Bld) [#/Vol] 0.83 10*3/uL [facility] Monocytes/100 WBC (Bld) 6.4 % 2.0 - 10.0 % [facility] Neutrophils (Bld) [#/Vol] 9.46 10*3/uL High [facility] Comment on above: Percent differential counts (%) should be interpreted in the context of the absolute cell counts (cells/uL). Neutrophils/100 WBC (Bld) 73.3 % 40.0 - 80.0 % [facility] Nucleated RBC/100 WBC (Bld) [Ratio] 0 % [facility] Platelets (Bld) [#/Vol] 417 10*3/uL [facility] RBC (Bld) [#/Vol] 3.61 10*6/uL Low [facility] WBC (Bld) [#/Vol] 12.9 10*3/uL High [facility] Basophils (Bld) [#/Vol] 0.04 x10*3/uL Normal 0.00-0.10 [facility] Comment on above: Performed By: #### 5 7021-8 #### MELLO TOWNSEND ([id number]) [facility] ([facility]) [address] [place] [address] 99815 Basophils/100 WBC (Bld) 0.3 % Normal 0.0-2.0 [facility] Comment on above: Performed By: #### 5 7021-8 #### MELLO TOWNSEND ([id number]) [facility] ([facility]) [address] [place] [address] 36138 Eosinophils (Bld) [#/Vol] 0.11 x10*3/uL Normal 0.00-0.70 [facility] Comment on above: Performed By: #### 5 7021-8 #### MELLO TOWNSEND ([id number]) [facility] ([facility]) [address] [place] [address] 19832 Eosinophils/100 WBC (Bld) 0.9 % Normal 0.0-6.0 [facility] Comment on above: Performed By: #### 5 7021-8 #### MELLO TOWNSEND ([id number]) [facility] ([facility]) [address] [place] [address] 01831 Erythrocyte distribution width (RBC) [Ratio] 12.3 % Normal 11.5-14.5 [facility] Comment on above: Performed By: #### 5 7021-8 #### MELLO TOWNSEND ([id number]) [facility] ([facility]) [address] [place] [address] 84459 Hematocrit (Bld) [Volume fraction] 29.7 % Low 36.0-46.0 [facility] Comment on above: Performed By: #### 5 7021-8 #### MELLO TOWNSEND ([id number]) [facility] ([facility]) [address] [place], [place] [address] Hemoglobin (Bld) [Mass/Vol] 9.8 g/dL Low 12.0-16.0 [facility] Comment on above: Performed By: #### 5 7021-8 #### MELLO TOWNSEND ([id number]) [facility] ([facility]) [address] [place] [address] 05151 Immature granulocytes (Bld) [#/Vol] 0.10 x10*3/uL Normal 0.00-0.70 [facility] Comment on above: Performed By: #### 5 7021-8 #### MELLO TOWNSEND ([id number]) [facility] ([facility]) [address] [place] [address] 16231 Immature granulocytes/100 WBC (Bld) 0.8 % Normal 0.0-0.9 [facility] Comment on above: Result Comment: Sheila ture Granulocyte Count (IG) includes promyelocytes, myelocytes and metamyelocytes but does not include bands. Percent differential counts (%) should be interpreted in the context of the absolute cell counts (cells/UL). Performed By: #### 5 7021-8 #### MELLO TOWNSEND ([id number]) [facility] ([facility]) [address] [place] [address] 82866 Lymphocytes (Bld) [#/Vol] 2.36 x10*3/uL Normal 1.20-4.80 [facility] Comment on above: Performed By: #### 5 7021-8 #### MELLO TOWNSEND ([id number]) [facility] ([facility]) [address] [place] [address] 84092 Lymphocytes/100 WBC (Bld) 18.3 % Normal 13.0-44.0 [facility] Comment on above: Performed By: #### 5 7021-8 #### MELLO TOWNSEND ([id number]) [facility] ([facility]) [address] [place] [address] 10245 MCH (RBC) [Entitic mass] 27.1 pg Normal 26.0-34.0 [facility] Comment on above: Performed By: #### 5 7021-8 #### MELLO TOWNSEND ([id number]) [facility] ([facility]) [address] [place] [address] 23266 MCHC (RBC) [Mass/Vol] 33.0 g/dL Normal 32.0-36.0 [facility] Comment on above: Performed By: #### 5 7021-8 #### MELLO TOWNSEND ([id number]) [facility] ([facility]) [address] [place] [address] 82085 MCV (RBC) [Entitic vol] 82 fL Normal 80-100 [facility] Comment on above: Performed By: #### 5 7021-8 #### MELLO TOWNSEND ([id number]) [facility] ([facility]) [address] [place] [address] 02347 Monocytes (Bld) [#/Vol] 0.83 x10*3/uL Normal 0.10-1.00 [facility] Comment on above: Performed By: #### 5 7021-8 #### MELLO TOWNSEND ([id number]) [facility] ([facility]) [address] [place] [address] 07424 Monocytes/100 WBC (Bld) 6.4 % Normal 2.0-10.0 [facility] Comment on above: Performed By: #### 5 7021-8 #### MELLO TOWNSEND ([id number]) [facility] ([facility]) [address] [place] [address] 60876 Neutrophils (Bld) [#/Vol] 9.46 x10*3/uL High 1.20-7.70 [facility] Comment on above: Result Comment: Perc ent differential counts (%) should be interpreted in the context of the absolute cell counts (cells/uL). Performed By: #### 5 7021-8 #### MELLO TOWNSEND ([id number]) [facility] ([facility]) [address] [place] [address] 61192 Neutrophils/100 WBC (Bld) 73.3 % Normal 40.0-80.0 [facility] Comment on above: Performed By: #### 5 7021-8 #### MELLO TOWNSEND ([id number]) [facility] ([facility]) [address] [place] [address] 55068 Nucleated RBC/100 WBC (Bld) [Ratio] 0.0 /100 WBCs Normal 0.0-0.0 [facility] Comment on above: Performed By: #### 5 7021-8 #### MELLO TOWNSEND ([id number]) [facility] ([facility]) [address] [place] [address] 83457 Platelets (Bld) [#/Vol] 417 x10*3/uL Normal 150-450 [facility] Comment on above: Performed By: #### 5 7021-8 #### MELLO TOWNSEND ([id number]) [facility] ([facility]) [address] [place] [address] 50911 RBC (Bld) [#/Vol] 3.61 x10*6/uL Low 4.00-5.20 [facility] Comment on above: Performed By: #### 5 7021-8 #### MELLO TOWNSEND ([id number]) [facility] ([facility]) [address] [place] [address] 28461 WBC (Bld) [#/Vol] 12.9 x10*3/uL High 4.4-11.3 [facility] Comment on above: Performed By: #### 5 7021-8 #### SARKAR KRISTIAN ([id number]) [facility] ([facility]) [address] [place] [address] CT ANGIO CHEST FOR PULMONARY EMBOLISMon 10-06-2024 CT ANGIO CHEST FOR PULMONARY EMBOLISM STUDY: CT Angiogram of the Chest; 10/06/2024 at 6:25 p.m. INDICATION: Shortness of breath. Tachypnea. Palpitations. Elevated D-Dimer. COMPARISON: None Available. ACCESSION NUMBER(S): [id number] ORDERING CLINICIAN: JOSE DAMON TECHNIQUE: CTA of [...] pulmonary embolus. Signed by Kyle Perez MD [facility] CT Chest W contrast IV and C [...] Elevated D-Dimer. COMPARISON: None Available. ACCESSION NUMBER(S): [id number] ORDERING CLINICIAN: JOSE DAMON TECHNIQUE: CTA of [...] Elevated D-Dimer. COMPARISON: None Available. ACCESSION NUMBER(S): [id number] ORDERING CLINICIAN: JOSE DAMON TECHNIQUE: CTA of [...] pulmonary embolus. Signed by Kyle Perez MD [facility] Work Phone: Radiology Study observation (narrative) [facility] Work Phone: CT Chest W contrast IV and C T angiogram Pulmonary arteries for pulmonary embolus W contrast IVOrdered By: Kyle Perez on 10-06-2024 [facility] Work Phone: Comprehensive metabolic 2000 panelon 10-06-2024 Albumin BCP dye [Mass/Vol] 3.1 g/dL Low 3.4 - 5.0 g/dL [facility] ALP [Catalytic activity/Vol] 200 U/L High 33 - 110 U/L [facility] ALT With P-5'-P [Catalytic activity/Vol] 12 U/L 7 - 45 U/L [facility] Comment on above: Patients treated wit h Sulfasalazine may generate falsely decreased results for ALT. Anion gap [Moles/Vol] 10 mmol/L 10 - 20 mmol/L [facility] AST With P-5'-P [Catalytic activity/Vol] 17 U/L 9 - 39 U/L [facility] Bilirubin [Mass/Vol] 0.3 mg/dL 0.0 - 1 .2 mg/dL [facility] Calcium [Mass/Vol] 8.1 mg/dL Low 8.6 - 10. 3 mg/dL [facility] Chloride [Moles/Vol] 106 mmol/L 98 - 10 7 mmol/L [facility] CO2 [Moles/Vol] 22 mmol/L 21 - 32 mmol/L [facility] Creatinine [Mass/Vol] 0.44 mg/dL Low 0.50 - 1.05 mg/dL [facility] eGFR - PINF [facility] Comment on above: Calculations of andrey mated GFR are performed using the 2020 CKD-EPI Study Refit equation without the race variable for the IDMS-Traceable creatinine methods. https://jasn.asnjournals.org/content/early/ASN.6780855 988 Glucose [Mass/Vol] 89 mg/dL 74 - 99 mg/dL [facility] Interpretation and review of laboratory results Abnormal [facility] Potassium [Moles/Vol] 3.6 mmol/L 3.5 - 5.3 mmol/L [facility] Protein [Mass/Vol] 6.8 g/dL 6.4 - 8.2 g/dL [facility] Sodium [Moles/Vol] 134 mmol/L Low 136 - 145 mmol/L [facility] Urea nitrogen [Mass/Vol] 8 mg/dL 6 - 23 mg/dL [facility] Albumin BCP dye [Mass/Vol] 3.1 g/dL Low 3.4-5.0 [facility] Comment on above: Performed By: #### 2 4323-8 #### MELLO TOWNSEND ([id number]) [facility] ([facility]) [address] [place] [address] ALP [Catalytic activity/Vol] 200 U/L High 33-110 [facility] Comment on above: Performed By: #### 2 4323-8 #### MELLO TOWNSEND ([id number]) [facility] ([facility]) [address] [place] [address] 74184 ALT With P-5'-P [Catalytic activity/Vol] 12 U/L Normal 7-45 [facility] Comment on above: Result Comment: Zaira ents treated with Sulfasalazine may generate falsely decreased results for ALT. Performed By: #### 2 4323-8 #### MELLO TOWNSEND ([id number]) [facility] ([facility]) [address] [place] [address] 58709 Anion gap [Moles/Vol] 10 mmol/L Normal 10-20 [facility] Comment on above: Performed By: #### 2 4323-8 #### MELLO TOWNSEND ([id number]) [facility] ([facility]) [address] [place] [address] 70716 AST With P-5'-P [Catalytic activity/Vol] 17 U/L Normal 9-39 [facility] Comment on above: Performed By: #### 2 4323-8 #### MELLO TOWNSEND ([id number]) [facility] ([facility]) [address] [place] [address] 53385 Bilirubin [Mass/Vol] 0.3 mg/dL Normal 0.0-1.2 [facility] Comment on above: Performed By: #### 2 4323-8 #### MELLO TOWNSEND ([id number]) [facility] ([facility]) [address] [place] [address] Calcium [Mass/Vol] 8.1 mg/dL Low 8.6-10.3 [facility] Comment on above: Performed By: #### 2 4323-8 #### MELLO TOWNSEND ([id number]) [facility] ([facility]) [address] [place] [address] Chloride [Moles/Vol] 106 mmol/L Normal 98-107 [facility] Comment on above: Performed By: #### 2 4323-8 #### MELLO TOWNSEND ([id number]) [facility] ([facility]) [address] [place] [address] 35968 CO2 [Moles/Vol] 22 mmol/L Normal 21-32 [facility] Comment on above: Performed By: #### 2 4323-8 #### MELLO TOWNSEND ([id number]) [facility] ([facility]) [address] [place] [address] Creatinine [Mass/Vol] 0.44 mg/dL Low 0.50-1.05 [facility] Comment on above: Performed By: #### 2 4323-8 #### MELLO TOWNSEND ([id number]) [facility] ([facility]) [address] [place] [address] 59524 GFR/1.73 sq M.predicted MDRD (S/P/Bld) [Vol rate/Area] mL/min/{1.73_m2} Normal >60 [facility] Comment on above: Result Comment: Calc ulations of estimated GFR are performed using the 2020 CKD-EPI Study Refit equation without the race variable for the IDMS-Traceable creatinine methods. https://jasn.asnjournals.org/content//ASN.7195429 988 Performed By: #### 2 4323-8 #### MELLO TOWNSEND ([id number]) [facility] ([facility]) [address] [place] [address] Glucose [Mass/Vol] 89 mg/dL Normal 74-99 [facility] Comment on above: Performed By: #### 2 4323-8 #### MELLO TOWNSEND ([id number]) [facility] ([facility]) [address] [place] [address] 72698 Potassium [Moles/Vol] 3.6 mmol/L Normal 3.5-5.3 [facility] Comment on above: Performed By: #### 2 4323-8 #### MELLO TOWNSEND ([id number]) [facility] ([facility]) [address] [place] [address] 34185 Protein [Mass/Vol] 6.8 g/dL Normal 6.4-8.2 [facility] Comment on above: Performed By: #### 2 4323-8 #### MELLO TOWNSEND ([id number]) [facility] ([facility]) [address] [place] [address] 94605 Sodium [Moles/Vol] 134 mmol/L Low 136-145 [facility] Comment on above: Performed By: #### 2 4323-8 #### MELLO TOWNSEND ([id number]) [facility] ([facility]) [address] [place] [address] 62455 Urea nitrogen [Mass/Vol] 8 mg/dL Normal 6-23 [facility] Comment on above: Performed By: #### 2 4323-8 #### MELLO TOWNSEND ([id number]) [facility] ([facility]) [address] [place] [address] 92520 D-Dimer, VTE Exclusionon Fibrin D-dimer FEU (PPP) [Mass/Vol] 1367 [facility] ECG 12-LEADon 10-06-2024 ECG 12-LEAD Ventricular Rate 102 Atrial Rate 102 P-R Interval 118 QRS Duration 86 Q-T Interval 334 QTC Calculation(Bazett) 435 P [place] 73 R [place] 97 T [place] 19 QRS Count 17 Q Onset 215 [...] Rice ([id number]) on 10/11/2024 9:23:[address] [facility] FLUAV and FLUBV RNA ISAK+prob e Nom (Unsp spec)on 10-06-2024 FLUAV RNA ISAK+probe Ql (Resp) Not detected Not Detected [facility] FLUBV RNA ISAK+probe Ql (Resp) Not detected Not Detected [facility] This assay is an in vitro diagnostic multiplex nucleic acid amplification test for the detection and discrimination of Influenza A & B from nasopharyngeal specimens, and has been validated for use at [facility]. Negative results do not preclude Influenza A/B infections, and should not be used as the sole basis for diagnosis, treatment, or other management decisions. If Influenza A/B and RSV PCR results are negative, testing for Parainfluenza virus, Adenovirus and Metapneumovirus is routinely performed for [facility] [place] and intensive care in[place], and is available on other patients by placing an add-on request. [facility] FLUAV RNA ISAK+probe Ql (Resp) Not detected Normal Not Detected [facility] Comment on above: Order Comment: This assay is an in vitro diagnostic multiplex nucleic acid amplification test for the detection and discrimination of Influenza A & B from nasopharyngeal specimens, and has been validated for use at [facility]. Negative results do not preclude Influenza A/B infections, and should not be used as the sole basis for diagnosis, treatment, or other management decisions. If Influenza A/B and RSV PCR results are negative, testing for Parainfluenza virus, Adenovirus and Metapneumovirus is routinely performed for [facility] [place]ology and intensive care inpatients, and is available on other patients by placing an add-on request. Performed By: #### 4 8509-4 #### SARKAR KRISTIAN ([id number]) [facility] ([facility]) [address] [place] [address] FLUBV RNA ISAK+probe Ql (Resp) Not detected Normal Not Detected [facility] Comment on above: Order Comment: This assay is an in vitro diagnostic multiplex nucleic acid amplification test for the detection and discrimination of Influenza A & B from nasopharyngeal specimens, and has been validated for use at [facility]. Negative results do not preclude Influenza A/B infections, and should not be used as the sole basis for diagnosis, treatment, or other management decisions. If Influenza A/B and RSV PCR results are negative, testing for Parainfluenza virus, Adenovirus and Metapneumovirus is routinely performed for [facility] [place], and is available on other patients by placing an add-on request. Performed By: #### 4 8509-4 #### MELLO TOWNSEND ([id number]) [facility] ([facility]) [address] [place], [place] [id number] Fibrin D-dimer FEUon 025 Fibrin D-dimer FEU (PPP) [Mass/Vol] 1367 ng/mL FEU High <=500 [facility] Comment on above: Order Comment: The V TE Exclusion D-Dimer assay is reported in ng/mL Fibrinogen Equivalent Units (FEU). Per watch crystal grinder's instructions for use, a value of less [...] By: #### 4 8065-7 #### MELLO TOWNSEND ([id number]) [facility] ([facility]) [facility] [place] [address] Fibrin D-dimer FEU (PPP) [Ma ss/Vol]on 10-06-2024 Interpretation and review of laboratory results Abnormal [facility] The VTE Exclusion D-Dimer assay is reported in ng/mL Fibrinogen Equivalent Units (FEU). Per watch crystal grinder's instructions for use, a value of less [...] assessment model for DVT or PE exclusion.) [facility] No Panel Informationon 10-06 Interpretation and review of laboratory results Normal [facility] Interpretation and review of laboratory results Normal [facility] SARS coronavirus 2 RNAon SARS-CoV-2 (COVID-19) RNA ISAK+probe Ql (Resp) Not detected Normal Not Detected [facility] Comment on above: Order Comment: This assay is an FDA-cleared, in vitro diagnostic nucleic acid amplification test for the qualitative detection and differentiation of SARS CoV-2 from nasopharyngeal specimens collected from individuals with signs and symptoms of respiratory tract infections, and has been validated for use at [facility]. Negative results do not preclude COVID-19 infections and should not be used as the sole basis for diagnosis, treatment, or other management decisions. Testing for SARS CoV-2 is recommended only for patients who meet current clinical and/or epidemiological criteria defined by federal, state, or local public health directives. Performed By: #### 9 4500-6 #### SAKRAR KRISTIAN ([id number]) [facility] ([facility]) [address] [place] [address] SARS-CoV-2 (COVID-19) RNA NA A+probe Ql (Resp)on 10-06-2024 This assay is an FDA-cleared, in vitro diagnostic nucleic acid amplification test for the qualitative detection and differentiation of SARS CoV-2 from nasopharyngeal specimens collected from individuals with signs and symptoms of respiratory tract infections, and has been validated for use at [facility]. Negative results do not preclude COVID-19 infections and should not be used as the sole basis for diagnosis, treatment, or other management decisions. Testing for SARS CoV-2 is recommended only for patients who meet current clinical and/or epidemiological criteria defined by federal, state, or local public health directives. [facility] Sars-CoV-2 PCRon 10-06-2024 SARS-CoV-2 (COVID-19) RNA ISAK+probe Ql (Resp) Not detected Not Detected [facility] TSH WITH REFLEX TO FREE T4 I F ABNORMALon 10-06-2024 TSH Qn 2.25 m[IU]/L Normal 0.44-3.98 [facility] Comment on above: Order Comment: TSH t esting is performed using different testing methodology at [facility] than at [facility]. Direct result comparisons should only be made within the same method. Performed By: #### T HYDS #### SARKAR KRISTIAN ([id number]) [facility] ([facility]) [address] [place] [address] TSH with reflex to Free T4 i f abnormalon 10-06-2024 TSH Qn 2.25 m[IU]/L [facility] TSH testing is perfo rmed using different testing methodology at [facility] than at other [facility]. Direct result comparisons should only be made within the same method. [facility] Tropinin I.cardiac panel Hig h sensitivity methodon [...] performed using a different testing methodology at [facility] than at other [facility]. Direct result comparisons should only be made within the same method. [facility] Troponin I, High Sensitivity on 10-06-2024 Tropinin I.cardiac panel High sensitivity method 4 ng/L 0 - 13 ng/L [facility] Troponin I.cardiac panelon 0 10-06-2024 Tropinin I.cardiac panel High sensitivity method 4 ng/L Normal 0-13 [facility] Comment on above: Order Comment: Less [...] performed using a different testing methodology at [facility] than at other [facility]. Direct result comparisons should only be made within the same method. Performed By: #### 8 9577-1 #### SARKAR KRISTIAN ([id number]) [facility] ([facility]) [address] [place] [address] XR CHEST 1 VIEWon 10-06-2024 XR CHEST 1 VIEW Interpreted By: Arsenio Roy, STUDY: XR CHEST 1 VIEW; 10/06/2024 5:12 pm INDICATION: Signs/Symptoms:dyspnea. COMPARISON: None. ACCESSION NUMBER(S): [id number] ORDERING CLINICIAN: JOSE DAMON FINDINGS: The cardiomediastinal [...] Arsenio Roy 10/06/2024 5:34 PM Dictation workstation: [id number] [facility] XR Chest Single viewon 10-06 Ill-defined opacity at the left lung base favored to represent atelectasis or developing pneumonia. MACRO: None. Signed by: Arsenio Roy 10/06/2024 5:34 PM Dictation workstation: [id number] [facility] Interpreted By: Arsenio Roy, STUDY: XR CHEST 1 VIEW; 10/06/2024 5:12 pm INDICATION: Signs/Symptoms:dyspnea. COMPARISON: None. ACCESSION NUMBER(S): [id number] ORDERING CLINICIAN: JOSE DAMON FINDINGS: The cardiomediastinal [...] pm INDICATION: Signs/Symptoms:dyspnea. COMPARISON: None. ACCESSION NUMBER(S): [id number] ORDERING CLINICIAN: JOSE DAMON FINDINGS: The cardiomediastinal [...] Arsenio Roy 10/06/2024 5:34 PM Dictation workstation: [id number] [facility] Work Phone: Radiology Study observation (narrative) [facility] Work Phone: XR Chest Single viewOrdered By: Arsenio Roy on 10-06-2024 [facility] Work Phone: Comprehensive Metabolic Prof ilon 10-04-2024 Albumin [Mass/Vol] 3.1 g/dL Low 3.5-5.0 [facility] Comment on above: Performed By: #### L 500.4050 #### [facility] [address] [place], [place], [id number] Albumin/Globulin [Mass ratio] 0.8 {ratio} Low 0.9-2.4 [facility] Comment on above: Performed By: #### L 500.4050 #### [facility] [address] [place], [place], [address] ALK PHOS 199 U/L High 35-104 [facility] Comment on above: Performed By: #### L 500.4050 #### [facility] [address] [place], [address] ALT [Catalytic activity/Vol] 13 U/L Normal <=34 [facility] Comment on above: Performed By: #### L 500.4050 #### [facility] [address] [place], [address] AST [Catalytic activity/Vol] 21 U/L Normal <=31 [facility] Comment on above: Performed By: #### L 500.4050 #### [facility] [address] [place], [address] Bilirubin [Mass/Vol] 0.20 mg/dL Normal 0.00-1.30 [facility] Comment on above: Performed By: #### L 500.4050 #### [facility] [address] [place], [address] BUN/CRE 16.2 RATIO Normal 10-20 [facility] Comment on above: Performed By: #### L 500.4050 #### [facility] [address] [place], [address] Calcium [Mass/Vol] 8.6 mg/dL Normal 7.6-11.0 [facility] Comment on above: Performed By: #### L 500.4050 #### [facility] [address] [place], [address] Chloride [Moles/Vol] 103 mmol/L Normal 98-108 [facility] Comment on above: Performed By: #### L 500.4050 #### [facility] [address] [place], [address] CO2 [Moles/Vol] 19.1 mmol/L Low 21.0-32.0 [facility] Comment on above: Performed By: #### L 500.4050 #### [facility] [address] [place], [address] Creatinine [Mass/Vol] 0.51 mg/dL Low 0.70-1.20 [facility] Comment on above: Performed By: #### L 500.4050 #### [facility] [address] [place], [address] ECRCL 174.98 ml/min Normal 50-250 [facility] Comment on above: Performed By: #### L 500.4050 #### [facility] [address] [place], [address] GAP 12 Normal 5-15 [facility] Comment on above: Performed By: #### L 500.4050 #### [facility] [address] [place], [address] GFR/1.73 sq M.predicted among non-blacks MDRD (S/P/Bld) [Vol rate/Area] 136 mL/min/{1.73_m2} Normal >60 [facility] Comment on above: Result Comment: mL/m in/1.73m2 CKD-EPI Creatinine Equation (2020) Performed By: #### L 500.4050 #### [facility] [address] [place], [address] Globulin (S) [Mass/Vol] 3.7 g/dL Normal 2.2-4.2 [facility] Comment on above: Performed By: #### L 500.4050 #### [facility] [address] [place], [address] Glucose [Mass/Vol] 109 mg/dL High 70-99 [facility] Comment on above: Performed By: #### L 500.4050 #### [facility] [address] [place], [address] Potassium [Moles/Vol] 3.5 mmol/L Normal 3.3-5.1 [facility] Comment on above: Performed By: #### L 500.4050 #### [facility] [address] [place], [address] Sodium [Moles/Vol] 134 mmol/L Normal 133-145 [facility] Comment on above: Performed By: #### L 500.4050 #### [facility] [address] [place], [place], [address] T PROT 6.8 g/dL Normal 5.9-8.4 [facility] Comment on above: Performed By: #### L 500.4050 #### [facility] [address] [place], [place], [address] Urea nitrogen [Mass/Vol] 8 mg/dL Normal 4-19 [facility] Comment on above: Performed By: #### L 500.4050 #### [facility] [address] [place], [place], [address] OB Triage Physician Noteon 0 10-04-2024 OB Triage Physician Note [facility] Medical Records Department [address] [place] [address] OB Triage Physician Note 10/04/24 0937 MR#: [id number] Acct: [id number] Name: MARYANA WILLIAM Rep #: [id number] : 2005 19 From: Tyrell Spencer MD PCP: Care Physician,No Primary Status:DEP CLI Y Location: [facility] HPI - General General Date of Admission: [...] Final COTY: 12/02/24 Gestational age: 31 3/7 [facility] Medical History Preeclampsia Home Medications ???Medication ???Instructions [...] MD; No Primary Care Physician Signed Normal [facility] CBC W/Diff, Automatedon 05-0 -2024 Absolute Lymph 3.17 X10 3/uL Normal 0.83-4.51 [facility] Comment on above: Performed By: #### L 100.0100 #### [facility] [address] [place], [address] Absolute Neut 11.3 X10 3/uL High 2.0-7.7 [facility] Comment on above: Performed By: #### L 100.0100 #### [facility] [address] [place], [address] Basophils/100 WBC (Bld) 0.3 % Normal 0-1 [facility] Comment on above: Performed By: #### L 100.0100 #### [facility] [address] [place], [address] Eosinophils/100 WBC (Bld) 1.2 % Normal 0-5 [facility] Comment on above: Performed By: #### L 100.0100 #### [facility] [address] [place], [address] Erythrocyte distribution width (RBC) [Ratio] 12.4 % Normal 11.6-14.6 [facility] Comment on above: Performed By: #### L 100.0100 #### [facility] [address] [place], [address] Hematocrit (Bld) [Volume fraction] 22.2 % Low 37-47 [facility] Comment on above: Performed By: #### L 100.0100 #### [facility] [address] [place], [address] Hemoglobin (Bld) [Mass/Vol] 7.4 g/dL Low 12.0-15.0 [facility] Comment on above: Performed By: #### L 100.0100 #### [facility] [address] [place], [address] IG% 0.700 Normal 0.0-0.9 [facility] Comment on above: Result Comment: IG% - Immature Granulocytes (promyelocytes, myelocytes and metamyelocytes) > 1% indicates that a LEFT SHIFT is Present. Performed By: #### L 100.0100 #### [facility] [address] [place], [address] Lymphocytes/100 WBC (Bld) 20.3 % Normal 19-41 [facility] Comment on above: Performed By: #### L 100.0100 #### [facility] [address] [place], [address] MCH (RBC) [Entitic mass] 27.2 pg Normal 27.0-32.0 [facility] Comment on above: Performed By: #### L 100.0100 #### [facility] [address] [place], [address] MCHC (RBC) [Mass/Vol] 33.3 g/dL Normal 32-36 [facility] Comment on above: Performed By: #### L 100.0100 #### [facility] [address] [place], [address] MCV (RBC) [Entitic vol] 81.6 fL Normal 81-99 [facility] Comment on above: Performed By: #### L 100.0100 #### [facility] [address] [place], [address] Monocytes/100 WBC (Bld) 5.4 % Normal 0-10 [facility] Comment on above: Performed By: #### L 100.0100 #### [facility] [address] [place], [address] Neutrophils/100 WBC (Bld) 72.1 % High 47-70 [facility] Comment on above: Performed By: #### L 100.0100 #### [facility] [address] [place], [address] Nucleated RBC (Bld) [#/Vol] 0 10*3/uL Normal 0-5 [facility] Comment on above: Performed By: #### L 100.0100 #### [facility] [address] [place], [address] Platelet mean volume (Bld) [Entitic vol] 9.6 fL Normal 6.2-12.0 [facility] Comment on above: Performed By: #### L 100.0100 #### [facility] [address] [place], [address] Platelets (Bld) [#/Vol] 457 10*3/uL High 150-450 [facility] Comment on above: Performed By: #### L 100.0100 #### [facility] [address] [place], [address] RBC (Bld) [#/Vol] 2.72 10*6/uL Low 4.2-5.4 [facility] Comment on above: Performed By: #### L 100.0100 #### [facility] [address] [place], [address] RDW SD 37.1 fl Normal 35.1-43.9 [facility] Comment on above: Performed By: #### L 100.0100 #### [facility] [address] [place], [address] WBC (Bld) [#/Vol] 15.6 10*3/uL High 4.4-11.0 [facility] Comment on above: Performed By: #### L 100.0100 #### [facility] [address] [place], [address] Emergency Department Summary on 10-03-2024 Emergency Department Summary [facility] Medical Records Department [address] [place] [address] Emergency Department Summary 10/03/24 MR#: [id number] Acct: [id number] Name: MARYANA WILLIAM Rep #: [id number] : 2005 19 From: Triston Valerio MD [...] other. No history of DVT or PE. [facility] Medical History Preeclampsia Home Medications ???Medication ???Instructions [...] the pos (more content not included)... Normal [facility] Protein+Creatinine Ratio,Uri neon 10-03-2024 PROT:CRE RATIO 170 mg/g CRE Normal 0-200 [facility] Comment on above: Performed By: #### L 501.0900 #### [facility] [address] [place], [address] Protein (U) [Mass/Vol] 14.6 mg/dL High 0.0-12.0 [facility] Comment on above: Performed By: #### L 501.0900 #### [facility] [address] [place], [address] UR CREAT 86.10 mg/dL Normal 28.00-217.00 [facility] Comment on above: Performed By: #### L 501.0900 #### [facility] [address] [place], [address] Urinalysis, Completeon 10-03 BACTERIA 1+ /hpf Normal None Seen [facility] Comment on above: Order Comment: CLEAN CATCH Performed By: #### L 400.0001 #### [facility] [address] [place], [address] EPI,SQUAMOUS 10-25 SEEN Normal 5-10 [facility] Comment on above: Order Comment: CLEAN CATCH Performed By: #### L 400.0001 #### [facility] [address] [place], [address] WBC 10-25 SEEN Normal 0-5 [facility] Comment on above: Order Comment: CLEAN CATCH Performed By: #### L 400.0001 #### [facility] [address] [place], [address] Mucus Ql (Urine sed) 0 SEEN Normal [facility] Comment on above: Order Comment: CLEAN CATCH Performed By: #### L 400.0001 #### [facility] [address] [place], [address] RBC 0 SEEN Normal 0-5 [facility] Comment on above: Order Comment: CLEAN CATCH Performed By: #### L 400.0001 #### [facility] [address] [place], [address] CBC W Auto Differential pane l (Bld)on 09-09-2024 Basophils (Bld) [#/Vol] 0.05 10*3/uL Normal <0.11 [facility] Comment on above: Order Comment: Speci men Type: BLOOD SPECIMENOrdering Facility: [facility] Address: [address] [place] [address] Performed By: #### 5 7021-8 ####[facility] [id number] [place] [address] [place] Basophils/100 WBC (Bld) 0.3 % Normal [facility] Comment on above: Order Comment: Speci men Type: BLOOD SPECIMENOrdering Facility: [facility] Address: [address] [place] [address] Performed By: #### 5 7021-8 ####[facility] [id number] [place] [address] [place] Differential cell count method Nom (Bld) Auto Normal [facility] Comment on above: Order Comment: Speci men Type: BLOOD SPECIMENOrdering Facility: [facility] Address: [address] [place] [address] Performed By: #### 5 7021-8 ####[facility] [id number] [place] [address] [place] Eosinophils (Bld) [#/Vol] 0.12 10*3/uL Normal <0.46 [facility] Comment on above: Order Comment: Speci men Type: BLOOD SPECIMENOrdering Facility: [facility] Address: [address] [place] [address] Performed By: #### 5 7021-8 ####[facility] [id number] [place] [address] [place] Eosinophils/100 WBC (Bld) 0.8 % Normal [facility] Comment on above: Order Comment: Speci men Type: BLOOD SPECIMENOrdering Facility: [facility] Address: [address] [place] [address] Performed By: #### 5 7021-8 ####[facility] [id number] [place] [address] [place] Erythrocyte distribution width (RBC) [Ratio] 12.9 % Normal 11.5-15.0 [facility] Comment on above: Order Comment: Speci men Type: BLOOD SPECIMENOrdering Facility: [facility] Address: [address] [place] [address] Performed By: #### 5 7021-8 ####[facility] [id number] [place] [address] [place] Hematocrit (Bld) [Volume fraction] 29.1 % Low 36.0-46.0 [facility] Comment on above: Order Comment: Speci men Type: BLOOD SPECIMENOrdering Facility: [facility] Address: [address] [place] [address] Performed By: #### 5 7021-8 ####[facility] [id number] [place] [address] [place] Hemoglobin (Bld) [Mass/Vol] 9.6 g/dL Low 11.5-15.5 [facility] Comment on above: Order Comment: Speci men Type: BLOOD SPECIMENOrdering Facility: [facility] Address: [address] [place] [address] Performed By: #### 5 7021-8 ####[facility] ARVINWNCLIA [id number] [place] [address] [place] Immature granulocytes (Bld) [#/Vol] 0.12 10*3/uL High <0.10 [facility] Comment on above: Order Comment: Speci men Type: BLOOD SPECIMENOrdering Facility: [facility] Address: [address] [place] [address] Performed By: #### 5 7021-8 ####[facility] ANAWJAMESONLIA [id number] [place] [address] [place] Immature granulocytes/100 WBC (Bld) 0.8 % Normal [facility] Comment on above: Order Comment: Speci men Type: BLOOD SPECIMENOrdering Facility: [facility] Address: [address] [place] [address] Performed By: #### 5 7021-8 ####[facility] ARVINWNCLIA [id number] [place] [address] [place] Lymphocytes (Bld) [#/Vol] 2.61 10*3/uL Normal 1.00-4.00 [facility] Comment on above: Order Comment: Speci men Type: BLOOD SPECIMENOrdering Facility: [facility] Address: [address] [place] [address] Performed By: #### 5 7021-8 ####[facility] ANATOWNCLIA [id number] [place] [address] [place] Lymphocytes/100 WBC (Bld) 17.5 % Normal [facility] Comment on above: Order Comment: Speci men Type: BLOOD SPECIMENOrdering Facility: [facility] Address: [address] [place] [address] Performed By: #### 5 7021-8 ####[facility] [id number] [place] [address] [place] MCH (RBC) [Entitic mass] 27.4 pg Normal 26.0-34.0 [facility] Comment on above: Order Comment: Speci men Type: BLOOD SPECIMENOrdering Facility: [facility] Address: [address] [place] [address] Performed By: #### 5 7021-8 ####[facility] [id number] [place] [address] [place] MCHC (RBC) [Mass/Vol] 33.0 g/dL Normal 30.5-36.0 [facility] Comment on above: Order Comment: Speci men Type: BLOOD SPECIMENOrdering Facility: [facility] Address: [address] [place] [address] Performed By: #### 5 7021-8 ####[facility] [id number] [place] [address] [place] MCV (RBC) [Entitic vol] 82.9 fL Normal 80.0-100.0 [facility] Comment on above: Order Comment: Speci men Type: BLOOD SPECIMENOrdering Facility: [facility] Address: [address] [place] [address] Performed By: #### 5 7021-8 ####[facility] [id number] [place] [address] [place] Monocytes (Bld) [#/Vol] 0.84 10*3/uL Normal <0.87 [facility] Comment on above: Order Comment: Speci men Type: BLOOD SPECIMENOrdering Facility: [facility] Address: [address] [place] [address] Performed By: #### 5 7021-8 ####[facility] [id number] [place] [address] [place] Monocytes/100 WBC (Bld) 5.6 % Normal [facility] Comment on above: Order Comment: Speci men Type: BLOOD SPECIMENOrdering Facility: [facility] Address: [address] [place] [address] Performed By: #### 5 7021-8 ####[facility] [id number] [place] [address] [place] Neutrophils (Bld) [#/Vol] 11.15 10*3/uL High 1.45-7.50 [facility] Comment on above: Order Comment: Speci men Type: BLOOD SPECIMENOrdering Facility: [facility] Address: [address] [place] [address] Performed By: #### 5 7021-8 ####[facility] [id number] [place] [address] [place] Neutrophils/100 WBC (Bld) 75.0 % Normal [facility] Comment on above: Order Comment: Speci men Type: BLOOD SPECIMENOrdering Facility: [facility] Address: [address] [place] [address] Performed By: #### 5 7021-8 ####[facility] [id number] [place] [address] [place] Nucleated RBC (Bld) [#/Vol] 10*3/uL Normal <0.01 [facility] Comment on above: Order Comment: Speci men Type: BLOOD SPECIMENOrdering Facility: [facility] Address: [address] [place] [address] Performed By: #### 5 7021-8 ####[facility] [id number] [place] [address] [place] Nucleated RBC/100 WBC (Bld) [Ratio] 0.0 /100 WBC Normal [facility] Comment on above: Order Comment: Speci men Type: BLOOD SPECIMENOrdering Facility: [facility] Address: [address] [place], [place] [address] Performed By: #### 5 7021-8 ####[facility] SLAVANCBOB [id number] [place] [address] [place] Platelet mean volume (Bld) [Entitic vol] 9.2 fL Normal 9.0-12.7 [facility] Comment on above: Order Comment: Speci men Type: BLOOD SPECIMENOrdering Facility: [facility] Address: [address] [place] [address] Performed By: #### 5 7021-8 ####[facility] [id number] [place] [address] [place] Platelets (Bld) [#/Vol] 407 10*3/uL High 150-400 [facility] Comment on above: Order Comment: Speci men Type: BLOOD SPECIMENOrdering Facility: [facility] Address: [address] [place] [address] Performed By: #### 5 7021-8 ####[facility]ALTHNCEMERYA [id number] [place] [address] [place] RBC (Bld) [#/Vol] 3.51 10*6/uL Low 3.90-5.20 [facility] Comment on above: Order Comment: Speci men Type: BLOOD SPECIMENOrdering Facility: [facility] Address: [address] [place], [place] [address] Performed By: #### 5 7021-8 ####[facility]ALTH[facility]CLIA [id number] [place] [address] [place] WBC (Bld) [#/Vol] 14.89 10*3/uL High 3.70-11.00 [facility] Comment on above: Order Comment: Speci men Type: BLOOD SPECIMENOrdering Facility: [facility] Address: [address] [place] [address] Performed By: #### 5 7021-8 ####[facility] TIMOTHY MILLTOWNCLIA [id number] [place] [address] [place] CNCOon 09-09-2024 CNCO Letter Text Normal [facility] Ferritin SerPl-mCncon 2024 Ferritin [Mass/Vol] 7.0 ng/mL Low 14.7-205.1 [facility] Comment on above: Order Comment: Speci men Type: BLOOD SPECIMENOrdering Facility: [facility] Address: [address] [place] [address] Performed By: #### 2 276-4, 19466-2 ####[facility] LABCLIA [id number] [address] [place] GESTATIONAL GLUCOSE SCREEN, 1-HOUR, 50 GRAM, NON-FASTINGon 09-09-2024 Glucose [Mass/Vol] 97 mg/dL Normal 74-134 [facility] Comment on above: Order Comment: Speci men Type: BLOOD SPECIMEN [facility]: [facility] Address: [address] [place] [address] Result Comment: [facility] Congress of Obstetricians and Gynecologists (Kurtis/Juliet) guidelines state a gestational diabetes mellitus positive screen is made, in women not previously diagnosed with overt diabetes, when the 1 hr plasma glucose level is equal to or above 140 mg/dL. The [facility] Petroleum Products Sales Representative and [facility] [place] recommends a 135 mg/dL cutoff. Performed By: #### T SPN #### [facility] CLIA [id number] [address] [place] [address] [place] Iron and Iron binding capaci ty panelon 09-09-2024 Iron [Mass/Vol] 38 ug/dL Low 41-186 [facility] Comment on above: Order Comment: Speci men Type: BLOOD SPECIMENOrdering Facility: [facility] Address: [address] [place] [address] Performed By: #### 2 276-4, 27328-4 ####[facility] LABCLIA [id number] [place] [address] [place] Iron binding capacity [Mass/Vol] >538 High 232-386 [facility] Comment on above: Order Comment: Speci men Type: BLOOD SPECIMENOrdering Facility: [facility] Address: [address] [place] [address] Performed By: #### 2 276-4, 50473-6 ####[facility] LABIA [id number] [place] [address] [place] Iron/TIBC [Molar ratio] <7.1 Low 15.0-57.0 [facility] Comment on above: Order Comment: Speci men Type: BLOOD SPECIMENOrdering Facility: [facility] Address: [address] [place] [address] Performed By: #### 2 276-4, 10030-1 ####[facility] LABIA [id number] [place] [address] [place] Reagin and Treponema pallidu m IgG and IgM [Interp]on 09-09-2024 T. pallidum IgG+IgM IA Ql (S) Non-Reactive Normal Nonreactive [facility] Comment on above: Order Comment: Speci men Type: BLOOD SPECIMENOrdering Facility: [facility] Address: [address] [place] [address] Performed By: #### 7 3752-8 ####[facility] LABIA [id number] [place] [address] [place] Reagin+T pallidum IgG+IgM Se rPl-Impon 09-09-2024 Reagin and Treponema pallidum IgG and IgM [Interp] Cannot exclude recent Treponemal infection if specimen collected within 7-10 days after appearance of suspect lesions or 2-3 weeks after an exposure. Clinical correlation is required. Normal [facility] Comment on above: Order Comment: Speci men Type: BLOOD SPECIMENOrdering Facility: [facility] Address: [address] [place] [address] Performed By: #### 7 3752-8 ####[facility] LABCLIA [id number] [place] [id number] [facility] Examination level ultrasound on 07-30-2024 Indication Standard [...] 3 oz EFW by: Hadlock (HC-AC-FL) Extended Solar Panel Technician 6.2 mm CM 3.7 mm 6% Nicolaides [...] normal LVOT view: normal 3-vessel view: normal 3-bzqsqn-cqujiux view: normal Heart / Thorax Situs: situs [...] By: Stephanie Da Silva M.D. MATERNAL MEDICINE [facility] Radiology Study observation (narrative) [facility] CNOVon 07-18-2024 CNOV Office Visit (WSTR ) -------- MARYANA WILLIAM ([id number]) 1 F Date Time Provider Department 07/18/24 1:45 PM MARGO BULLARD [facility] During your visit today, we recorded the following information about you: Margo Bullard APRN.CASE FOLDER 07/18/2024 1:54 PM Signed 20 weeks . [...] tablet by mouth once daily. - PNV no.720-HG-xv8-dha-epa-fi sh ( GUMMIES) 400 mcg-35 mg- 25 mg-5 mg chew Take 1 Piece by mouth once daily. Meds Comments as of 02/06/2009: No current meds, reviewed 02/06/2009. 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 Cough is nonproductive. Denies dyspnea or [place] exertion. There is no history of VTE. [...] the leg (more content not included)... Normal [facility] CNCOon 06-12-2024 CNCO Letter Text Normal [facility] Bacteria Ur Culton Bacteria identified Cx Nom (U) CULTURE, URINE: No growth (<1,000 CFU/ml) Normal [facility] Comment on above: Performed By: #### T SPN #### [facility] CLIA [id number] [address] [place] [address] [place] C. trachomatis+N. gonorrhoea e DNA ISAK+probe Ql (Unsp spec)on 06-10-2024 C. trachomatis rRNA ISAK+probe Ql (Unsp spec) Not detected Normal Not detected [facility] Comment on above: Order Comment: Speci men Type: BLOOD SPECIMEN [facility] Address: [address] [place] [address] Performed By: #### T SPN #### [facility] CLIA [id number] [address] [place] [address] [place] N. gonorrhoeae rRNA ISAK+probe Ql (Unsp spec) Not detected Normal Not detected [facility] Comment on above: Order Comment: Speci men Type: BLOOD SPECIMEN [facility]: [facility] Address: [address] [place] [address] Performed By: #### T SPN #### [facility] CLIA [id number] [facility] [id number] [address] [place] CBC W Auto Differential pane l (Bld)on 06-10-2024 Basophils (Bld) [#/Vol] 0.03 10*3/uL Normal <0.11 [facility] Comment on above: Order Comment: Speci men Type: BLOOD SPECIMENOrdering Facility: [facility] Address: [address] [place] [address] Performed By: #### 5 7021-8 ####[facility] [id number] [place] [address] [place] Basophils/100 WBC (Bld) 0.2 % Normal [facility] Comment on above: Order Comment: Speci men Type: BLOOD SPECIMENOrdering Facility: [facility] Address: [address] [place] [address] Performed By: #### 5 7021-8 ####[facility] [id number] [place] [address] [place] Differential cell count method Nom (Bld) Auto Normal [facility] Comment on above: Order Comment: Speci men Type: BLOOD SPECIMENOrdering Facility: [facility] Address: [address] [place] [address] Performed By: #### 5 7021-8 ####[facility] [id number] [place] [address] [place] Eosinophils (Bld) [#/Vol] 0.09 10*3/uL Normal <0.46 [facility] Comment on above: Order Comment: Speci men Type: BLOOD SPECIMENOrdering Facility: [facility] Address: [address] [place] [address] Performed By: #### 5 7021-8 ####[facility] [id number] [place] [address] [place] Eosinophils/100 WBC (Bld) 0.7 % Normal [facility] Comment on above: Order Comment: Speci men Type: BLOOD SPECIMENOrdering Facility: [facility] Address: [address] [place] [address] Performed By: #### 5 7021-8 ####[facility] [id number] [place] [address] [place] Erythrocyte distribution width (RBC) [Ratio] 14.0 % Normal 11.5-15.0 [facility] Comment on above: Order Comment: Speci men Type: BLOOD SPECIMENOrdering Facility: [facility] Address: [address] [place] [address] Performed By: #### 5 7021-8 ####[facility] [id number] [place] [address] [place] Hematocrit (Bld) [Volume fraction] 33.8 % Low 36.0-46.0 [facility] Comment on above: Order Comment: Speci men Type: BLOOD SPECIMENOrdering Facility: [facility] Address: [address] [place] [address] Performed By: #### 5 7021-8 ####[facility] [id number] [place] [address] [place] Hemoglobin (Bld) [Mass/Vol] 11.6 g/dL Normal 11.5-15.5 [facility] Comment on above: Order Comment: Speci men Type: BLOOD SPECIMENOrdering Facility: [facility] Address: [address] [place] [address] Performed By: #### 5 7021-8 ####[facility] [id number] [place] [address] [place] Immature granulocytes (Bld) [#/Vol] 0.07 10*3/uL Normal <0.10 [facility] Comment on above: Order Comment: Speci men Type: BLOOD SPECIMENOrdering Facility: [facility] Address: [address] [place] [address] Performed By: #### 5 7021-8 ####[facility] KERALIA [id number] [place] [address] [place] Immature granulocytes/100 WBC (Bld) 0.6 % Normal [facility] Comment on above: Order Comment: Speci men Type: BLOOD SPECIMENOrdering Facility: [facility] Address: [address] [place] [address] Performed By: #### 5 7021-8 ####[facility] HEALTHJAMESONLIA [id number] [place] [address] [place] Lymphocytes (Bld) [#/Vol] 3.57 10*3/uL Normal 1.00-4.00 [facility] Comment on above: Order Comment: Speci men Type: BLOOD SPECIMENOrdering Facility: [facility] Address: [address] [place] [address] Performed By: #### 5 7021-8 ####[facility] HEALTHJAMESONLIA [id number] [place] [address] [place] Lymphocytes/100 WBC (Bld) 28.9 % Normal [facility] Comment on above: Order Comment: Speci men Type: BLOOD SPECIMENOrdering Facility: [facility] Address: [address] [place] [address] Performed By: #### 5 7021-8 ####[facility] HOSPITALLIA [id number] [place] [address] [place] MCH (RBC) [Entitic mass] 27.4 pg Normal 26.0-34.0 [facility] Comment on above: Order Comment: Speci men Type: BLOOD SPECIMENOrdering Facility: [facility] Address: [address] [place] [address] Performed By: #### 5 7021-8 ####[facility]ACKSONVILLEA [id number] [place] [address] [place] MCHC (RBC) [Mass/Vol] 34.3 g/dL Normal 30.5-36.0 [facility] Comment on above: Order Comment: Speci men Type: BLOOD SPECIMENOrdering Facility: [facility] Address: [address] [place] [address] Performed By: #### 5 7021-8 ####[facility] [id number] [place] [address] [place] MCV (RBC) [Entitic vol] 79.9 fL Low 80.0-100.0 [facility] Comment on above: Order Comment: Speci men Type: BLOOD SPECIMENOrdering Facility: [facility] Address: [address] [place] [address] Performed By: #### 5 7021-8 ####[facility] [id number] [place] [address] [place] Monocytes (Bld) [#/Vol] 0.62 10*3/uL Normal <0.87 [facility] Comment on above: Order Comment: Speci men Type: BLOOD SPECIMENOrdering Facility: [facility] Address: [address] [place] [address] Performed By: #### 5 7021-8 ####[facility] [id number] [place] [address] [place] Monocytes/100 WBC (Bld) 5.0 % Normal [facility] Comment on above: Order Comment: Speci men Type: BLOOD SPECIMENOrdering Facility: [facility] Address: [address] [place] [address] Performed By: #### 5 7021-8 ####[facility] HEALTHNCLIA [id number] [place] [address] [place] Neutrophils (Bld) [#/Vol] 7.98 10*3/uL High 1.45-7.50 [facility] Comment on above: Order Comment: Speci men Type: BLOOD SPECIMENOrdering Facility: [facility] Address: [address] [place] [address] Performed By: #### 5 7021-8 ####[facility] [id number] [place] [address] [place] Neutrophils/100 WBC (Bld) 64.6 % Normal [facility] Comment on above: Order Comment: Speci men Type: BLOOD SPECIMENOrdering Facility: [facility] Address: [address] [place] [address] Performed By: #### 5 7021-8 ####[facility] [id number] [place] [address] [place] Nucleated RBC (Bld) [#/Vol] 10*3/uL Normal <0.01 [facility] Comment on above: Order Comment: Speci men Type: BLOOD SPECIMENOrdering Facility: [facility] Address: [address] [place] [address] Performed By: #### 5 7021-8 ####[facility] [id number] [place] [address] [place] Nucleated RBC/100 WBC (Bld) [Ratio] 0.0 /100 WBC Normal [facility] Comment on above: Order Comment: Speci men Type: BLOOD SPECIMENOrdering Facility: [facility] Address: [address] [place] [address] Performed By: #### 5 7021-8 ####[facility] [id number] [place] [address] [place] Platelet mean volume (Bld) [Entitic vol] 8.9 fL Low 9.0-12.7 [facility] Comment on above: Order Comment: Speci men Type: BLOOD SPECIMENOrdering Facility: [facility] Address: [address] [place] [address] Performed By: #### 5 7021-8 ####[facility] SLAVANCEMERYA [id number] [place] [address] [place] Platelets (Bld) [#/Vol] 404 10*3/uL High 150-400 [facility] Comment on above: Order Comment: Speci men Type: BLOOD SPECIMENOrdering Facility: [facility] Address: [address] [place] [address] Performed By: #### 5 7021-8 ####[facility] HEALTHNCEMERYA [id number] [place] [address] [place] RBC (Bld) [#/Vol] 4.23 10*6/uL Normal 3.90-5.20 [facility] Comment on above: Order Comment: Speci men Type: BLOOD SPECIMENOrdering Facility: [facility] Address: [address] [place] [address] Performed By: #### 5 7021-8 ####[facility]ALTHNCLIA [id number] [place] [address] [place] WBC (Bld) [#/Vol] 12.36 10*3/uL High 3.70-11.00 [facility] Comment on above: Order Comment: Speci men Type: BLOOD SPECIMENOrdering Facility: [facility] Address: [address] [place] [address] Performed By: #### 5 7021-8 ####[facility]ALTHNCLIA [id number] [place] [address] [place] [facility] [place] HBV surface Ag Ser Qlon 0 HBV surface Ag Ql (S) Negative Normal Negative [facility] Comment on above: Order Comment: Speci men Type: BLOOD SPECIMENOrdering Facility: [facility] Address: [address] [place] [address] Performed By: #### 1 6128-1, 5195-3 ####[facility] LABCLIA [id number] [place] [address] [place] HCV Ab Ser Qlon 06-10-2024 HCV Ab Ql (S) Negative Normal Negative [facility] Comment on above: Order Comment: Speci men Type: BLOOD SPECIMEN Ordering [facility]: [facility] Address: [address] [place] [address] Result Comment: The result suggests no evidence of active infection with Hepatitis C virus. Should recent infection be suspected, repeat testing may be considered 4-6 weeks after this draw. Performed By: #### T SPN #### [facility] BLOOD BANK CLIA [id number] [address] [place] [address] [place] HIV 1+2 Ab IA Qlon HIV 1 and 2 Ab IA.rapid Nom (S/P/Bld) Normal [facility] Comment on above: Order Comment: Speci men Type: BLOOD SPECIMEN Ordering [facility]: [facility] Address: [address] [place] [address] Result Comment: Test not indicated. Performed By: #### T SPN #### [facility] BLOOD BANK CLIA [id number] [address] [place] [address] [place] HIV 1+2 Ab+HIV1 p24 Ag IA Ql Non-Reactive Normal Nonreactive [facility] Comment on above: Order Comment: Speci men Type: BLOOD SPECIMEN Ordering [facility]: [facility] Address: [address] [place] [address] Performed By: #### T SPN #### [facility] CLIA [id number] [address] [place] [address] [place] HIV immunoassay testing algorithm interpretation (S/P/Bld) [Interp] Normal [facility] Comment on above: Order Comment: Speci men Type: BLOOD SPECIMEN Ordering [facility]: [facility] Address: [address] [place] [address] Result Comment: No e vidence of HIV-1 or HIV-2 infection. Should recent infection be suspected, repeat testing may be considered 2-3 weeks after this draw. [place] Rev. Code 3701.243(E): This information has been [...] Performed By: #### T SPN #### [facility] BLOOD BANK CLIA [id number] [address] [place] [address] [place] HbA1c (Bld)on 06-10-2024 Average glucose Estimated from glycated hemoglobin (Bld) [Mass/Vol] 100 mg/dL Normal [facility] Comment on above: Order Comment: Speci men Type: BLOOD SPECIMEN Ordering [facility]: [facility] Address: [address] [place] [address] Result Comment: eAG: (Estimated average glucose) is a calculated value from HgbA1c and is petroleum products sales representative of the average blood glucose level in the last 2-3 month period. Performed By: #### 5 5454-3 #### [facility] CLIA [id number] [address] [place] [address] [place] HbA1c (Bld) [Mass fraction] 5.1 % Normal 4.3-5.6 [facility] Comment on above: Order Comment: Speci men Type: BLOOD SPECIMEN Ordering Facility: [facility] Address: [address] [place] [address] Result Comment: [place] Diabetes Association guidelines indicate that patients with HgbA1c in the range 5.7-6.4% are at increased risk for development of diabetes, and intervention by lifestyle modification may be beneficial. HgbA1c greater or equal to 6.5% is considered diagnostic of diabetes. Performed By: #### 5 5454-3 #### [facility] CLIA [id number] [address] [place] [address] [place] RUBELLA IGG ANTIBODYon 06-10 RUBELLA IGG AB, QUAL Positive Normal Positive [facility] Comment on above: Order Comment: Susanne scott Type: BLOOD SPECIMEN Ordering Facility: [facility] Address: [address] [place] [address] Result Comment: The result suggests recent or past exposure to Rubella virus or history of Rubella vaccination. Positive result may also be seen due to presence of passively-transferred antibodies. Please correlate with patient's history. Performed By: #### T SPN #### [facility] CLIA [id number] [address] [place] [address] [place] Reagin and Treponema pallidu m IgG and IgM [Interp]on 06-10-2024 T. pallidum IgG+IgM IA Ql (S) Non-Reactive Normal Nonreactive [facility] Comment on above: Order Comment: Susanne scott Type: BLOOD SPECIMEN Ordering Facility: [facility] Address: [address] [place] [address] Performed By: #### T SPN #### [facility] CLIA [id number] [address] [place] [address] [place] Reagin+T pallidum IgG+IgM Se rPl-Impon 06-10-2024 Reagin and Treponema pallidum IgG and IgM [Interp] Cannot exclude recent Treponemal infection if specimen collected within 7-10 days after appearance of suspect lesions or 2-3 weeks after an exposure. Clinical correlation is required. Normal [facility] Comment on above: Order Comment: Susanne scott Type: BLOOD SPECIMEN Ordering Facility: [facility] Address: [address] [place] [address] Performed By: #### T SPN #### [facility] CLIA [id number] [address] [place] [address] [place] TYPE + SCREEN PRENATALon ABO A Normal [facility] Comment on above: Order Comment: Susanne scott Type: BLOOD SPECIMEN Ordering Facility: [facility] Address: [address] [place], [place] [id number] Performed By: #### T SPN #### [facility] CLIA [id number] [address] [place] [address] [place] Rh Nom (Bld) Positive Normal [facility] Comment on above: Order Comment: Speci men Type: BLOOD SPECIMEN Ordering Facility: [facility] Address: [address] [place] [address] Performed By: #### T SPN #### [facility] CLIA [id number] [address] [place] [address] [place] TYPE AND SCREEN EXPIRATION 06/13/2024 23:59 Normal [facility] Comment on above: Order Comment: Speci men Type: BLOOD SPECIMEN Ordering Facility: [facility] Address: [address] [place] [address] Performed By: #### T SPN #### [facility] CLIA [id number] [address] [place] [address] [place] Streptococcus.beta-hemolytic Org specific cx Ql (Genital specimen)Ordered By: Torri Clakr on 06-16-2023 Interpretation and review of laboratory results Normal [facility] S. agalactiae Org specific cx Ql (Genital specimen) No Group B Streptococcus (GBS) isolated [facility] CBC Anemia Panel with Reflex , PregnancyOrdered By: Genoveva Read on 06-15-2023 Reflex added, Anemia panel [facility] Comment on above: Ferritin, Vitamin B1 2, Folate, and TIBC [facility] CBC panel Auto (Bld)on 06-15 Erythrocyte distribution width (RBC) [Ratio] 11.9 % 11.5 - 14.5 % [facility] Hematocrit (Bld) [Volume fraction] 32.0 % Low 36.0 - 46.0 % [facility] Hemoglobin (Bld) [Mass/Vol] 10.2 g/dL Low 12.0 - 16.0 g/dL [facility] Interpretation and review of laboratory results Abnormal [facility] MCH (RBC) [Entitic mass] 26.3 pg 26.0 - 34.0 pg [facility] MCHC (RBC) [Mass/Vol] 31.9 g/dL Low 32.0 - 36.0 g/dL [facility] MCV (RBC) [Entitic vol] 83 fL 80 - 100 fL [facility] Nucleated RBC/100 WBC (Bld) [Ratio] 0.0 % [facility] Platelets (Bld) [#/Vol] 339 10*3/uL [facility] RBC (Bld) [#/Vol] 3.88 10*6/uL Low Unive [facility] WBC (Bld) [#/Vol] 23.0 10*3/uL High Unive [facility] Erythrocyte distribution width (RBC) [Ratio] 11.9 % Normal 11.5-14.5 [facility] Comment on above: Performed By: #### 2 7298-9 #### FRANK TYLER ([id number]) [facility] ([facility]) [address] [place] [address] Hematocrit (Bld) [Volume fraction] 32.0 % Low 36.0-46.0 [facility] Comment on above: Performed By: #### 2 7298-9 #### FRANK TYLER ([id number]) [facility] ([facility]) [address] [place] [address] Hemoglobin (Bld) [Mass/Vol] 10.2 g/dL Low 12.0-16.0 [facility] Comment on above: Performed By: #### 2 7298-9 #### FRANK TYLER ([id number]) [facility] ([facility]) [address] [place] [address] MCH (RBC) [Entitic mass] 26.3 pg Normal 26.0-34.0 [facility] Comment on above: Performed By: #### 2 7298-9 #### FRANK TYLER ([id number]) [facility] ([facility]) [address] [place] [address] MCHC (RBC) [Mass/Vol] 31.9 g/dL Low 32.0-36.0 [facility] Comment on above: Performed By: #### 2 7298-9 #### FRANK TYLER ([id number]) [facility] ([facility]) [address] [place] [address] MCV (RBC) [Entitic vol] 83 fL Normal 80-100 [facility] Comment on above: Performed By: #### 2 7298-9 #### FRANK TYLER ([id number]) [facility] ([facility]) [address] [place] [address] Nucleated RBC/100 WBC (Bld) [Ratio] 0.0 /100 WBCs Normal 0.0-0.0 [facility] Comment on above: Performed By: #### 2 7298-9 #### FRANK TYLER ([id number]) [facility] ([facility]) [address] [place] [address] Platelets (Bld) [#/Vol] 339 x10*3/uL Normal 150-450 [facility] Comment on above: Performed By: #### 2 7298-9 #### FRANK TYLER ([id number]) [facility] ([facility]) [address] [place] [address] RBC (Bld) [#/Vol] 3.88 x10*6/uL Low 4.00-5.20 [facility] Comment on above: Performed By: #### 2 7298-9 #### FRANK TYLER ([id number]) [facility] ([facility]) [address] [place] [address] WBC (Bld) [#/Vol] 23.0 x10*3/uL High 4.4-11.3 [facility] Comment on above: Performed By: #### 2 7298-9 #### FRANK TYLER ([id number]) [facility] ([facility]) [address] [place] [address] Cobalamin (Vitamin B12) [Mas s/Vol]on 06-15-2023 Non- 211 - 911 pg/mL First Trimester >=118 pg/mL Second Trimester >=130 pg/mL Third Trimester >= 99 pg/mL Please note results will not flag based on reference ranges above. [facility] Cobalaminson 06-15-2023 Cobalamin (Vitamin B12) [Mass/Vol] 304 pg/mL Normal [facility] Comment on above: Order Comment: Non-p regnancy 211 - 911 pg/mLFirst Trimester >=118 pg/mLSecond Trimester >=130 pg/mLThird Trimester >= 99 pg/mLPlease note results will not flag based on reference ranges above. Performed By: #### 2 4323-8 #### FRANK TYLER ([id number]) [facility] ([facility]) [address] [place] [id number] Ferritinon 06-15-2023 Ferritin [Mass/Vol] 15 ng/mL Low >15 [facility] Comment on above: Performed By: #### 2 4323-8 #### FRANK TYLER ([id number]) [facility] ([facility]) [address] [place] [address] Ferritin [Mass/Vol]on 2023 Interpretation and review of laboratory results Abnormal [facility] Ferritin, Pregnancyon 2023 Ferritin [Mass/Vol] 15 ng/mL Low 15 - PIN F ng/mL [facility] Folateon 06-15-2023 Folate [Mass/Vol] 10.6 ng/mL Normal [...] By: #### 2 4323-8 #### FRANK TYLER ([id number]) [facility] ([facility]) [address] [place] [address] Folate [Mass/Vol]on 01-11-20 24 Interpretation and review of laboratory results Normal [facility] Low <3.4 Borderline 3.4-5.0 Normal >5.0 Biotin interference may cause falsely elevated results. Patients taking a Biotin dose of up to 5 mg/day should refrain from taking Biotin for 24 hours before sample collection. Providers may contact their local laboratory for further information. [facility] Folate, Pregnancyon 06-15-19 24 Folate [Mass/Vol] 10.6 ng/mL 5.0 - PINF ng/mL [facility] Gas panelon 06-15-2023 Inhaled oxygen concentration 21 % Normal [facility] Comment on above: Order Comment: PRN p er provider discretion. Performed By: #### 2 7298-9 #### FRANK TYLER ([id number]) [facility] ([facility]) [address] [place] [address] Gas panel (BldCoA)on 024 Base excess Calc (BldCoA) [Moles/Vol] -5.2 mmol/L -10.8 - -0.5 mmol/L [facility] CO2 (BldCoA) [Partial pressure] 65 [facility] HCO3 (BldCoA) [Moles/Vol] 24.3 mmol/L 15.0 - 29.0 mmol/L [facility] Inhaled oxygen concentration 21 % [facility] Interpretation and review of laboratory results Abnormal [facility] Oxygen (BldCoA) [Partial pressure] 28 [facility] Oxyhemoglobin (BldCoA) [Mass fraction] 36.0 % Low 94.0 - 98.0 % [facility] pH (BldCoA) 7.18 pH 7.08 - 7.39 pH [facility] SaO2% (BldCoA) [Mass fraction] 37 % 3 - 69 % [facility] Base excess Calc (BldCoA) [Moles/Vol] -5.2 mmol/L Normal -10.8--0.5 [facility] Comment on above: Order Comment: PRN p er provider discretion. Performed By: #### 2 7298-9 #### FRANK TYLER ([id number]) [facility] ([facility]) [address] [place] [address] CO2 (BldCoA) [Partial pressure] 65 mm Hg Normal 31-75 [facility] Comment on above: Order Comment: PRN p er provider discretion. Performed By: #### 2 7298-9 #### FRANK TYLER ([id number]) [facility] ([facility]) [address] [place] [address] HCO3 (BldCoA) [Moles/Vol] 24.3 mmol/L Normal 15.0-29.0 [facility] Comment on above: Order Comment: PRN p er provider discretion. Performed By: #### 2 7298-9 #### FRANK TYLER ([id number]) [facility] ([facility]) [address] [place] [address] Oxygen (BldCoA) [Partial pressure] 28 mm Hg Normal 5-31 [facility] Comment on above: Order Comment: PRN p er provider discretion. Performed By: #### 2 7298-9 #### FRANK TYLER ([id number]) [facility] ([facility]) [address] [place] [address] Oxyhemoglobin (BldCoA) [Mass fraction] 36.0 % Low 94.0-98.0 [facility] Comment on above: Order Comment: PRN p er provider discretion. Performed By: #### 2 7298-9 #### FRANK TYLER (98698) [facility] ([facility]) [address] [place] [address] pH (BldCoA) 7.18 pH Normal 7.08-7.39 [facility] Comment on above: Order Comment: PRN p er provider discretion. Performed By: #### 2 7298-9 #### FRANK TYLER ([id number]) [facility] ([facility]) [address] [place] [address] SaO2% (BldCoA) [Mass fraction] 37 % Normal 3-69 [facility] Comment on above: Order Comment: PRN p er provider discretion. Performed By: #### 2 7298-9 #### FRANK TYLER ([id number]) [facility] ([facility]) [address] [place] [address] Gas panel (BldCoV)on 024 Base excess Calc (BldCoV) [Moles/Vol] -4.6 mmol/L -8.1 - -0.5 mmol/L [facility] CO2 (BldCoV) [Partial pressure] 46 [facility] HCO3 (BldCoV) [Moles/Vol] 22.1 mmol/L 16.0 - 26.0 mmol/L [facility] Inhaled oxygen concentration 21 % [facility] Interpretation and review of laboratory results Abnormal [facility] Oxygen (BldCoV) [Partial pressure] 39 High [facility] Oxyhemoglobin (BldCoV) [Mass fraction] 66.3 % Low 94.0 - 98.0 % [facility] pH (BldCoV) 7.29 pH 7.19 - 7.47 pH [facility] SaO2% (BldCoV) [Mass fraction] 68 % 16 - 84 % [facility] Base excess Calc (BldCoV) [Moles/Vol] -4.6 mmol/L Normal -8.1--0.5 [facility] Comment on above: Order Comment: PRN p er provider discretion. Performed By: #### 2 7298-9 #### FRANK TYLER ([id number]) [facility] ([facility]) [address] [place] [address] CO2 (BldCoV) [Partial pressure] 46 mm Hg Normal 22-53 [facility] Comment on above: Order Comment: PRN p er provider discretion. Performed By: #### 2 7298-9 #### FRANK TYLER (49626) [facility] ([facility]) [address] [place] [address] HCO3 (BldCoV) [Moles/Vol] 22.1 mmol/L Normal 16.0-26.0 [facility] Comment on above: Order Comment: PRN p er provider discretion. Performed By: #### 2 7298-9 #### FRANK TYLER (79072) [facility] ([facility]) [address] [place] [address] Oxygen (BldCoV) [Partial pressure] 39 mm Hg High 13-37 [facility] Comment on above: Order Comment: PRN p er provider discretion. Performed By: #### 2 7298-9 #### FRANK TYLER (02503) [facility] ([facility]) [address] [place] [address] Oxyhemoglobin (BldCoV) [Mass fraction] 66.3 % Low 94.0-98.0 [facility] Comment on above: Order Comment: PRN p er provider discretion. Performed By: #### 2 7298-9 #### FRANK TYLER ([id number]) [facility] ([facility]) [address] [place] [address] pH (BldCoV) 7.29 pH Normal 7.19-7.47 [facility] Comment on above: Order Comment: PRN p er provider discretion. Performed By: #### 2 7298-9 #### FRANK TYLER (13462) [facility] ([facility]) [address] [place] [address] SaO2% (BldCoV) [Mass fraction] 68 % Normal 16-84 [facility] Comment on above: Order Comment: PRN p er provider discretion. Performed By: #### 2 7298-9 #### FRANK TYLER ([id number]) [facility] ([facility]) [address] [place] [address] Iron and Iron binding capaci ty panelon 06-15-2023 Iron [Mass/Vol] 43 ug/dL See below [facility] Comment on above: IRON- Non- Female 14-17y 28 - 175 ug/dL Non- Female >=18y 35 - 150 ug/dL First Trimester 72 - 143 ug/dL Second Trimester 44 - 178 ug/dL Third Trimester 30 - 193 ug/dL Please note results will not flag based on reference ranges above. Iron binding capacity [Mass/Vol] [facility] Comment on above: One or more of the a nalytes used in this calculation is outside the analytical range. TIBC- Non- 240 - 445 ug/dL First Trimester 278 - 403 ug/dL Second Trimester 325 - 514 ug/dL Third Trimester 359 - 609 ug/dL Please note results will not flag based on reference ranges above. Iron binding capacity.unsaturated [Mass/Vol] ug/dL ug/dL [facility] Iron saturation [Mass fraction] [facility] Comment on above: % SATURATION-PREGNAN CY Non- [...] Iron [Mass/Vol] 43 ug/dL Normal See below [facility] Comment on above: Result Comment: IRON - Non- Female 14-17y 28 - 175 ug/dL Non- Female >=18y 35 - 150 ug/dL First Trimester 72 - 143 ug/dL Second Trimester 44 - 178 ug/dL Third Trimester 30 - 193 ug/dL Please note results will not flag based on reference ranges above. Performed By: #### 2 7298-9 #### FRANK TYLER ([id number]) [facility] ([facility]) [address] [place] [address] Iron binding capacity [Mass/Vol] Normal [facility] Comment on above: Result Comment: One or more of the analytes used in this calculation is outside the analytical range. TIBC- Non- 240 - 445 ug/dL First Trimester 278 - 403 ug/dL Second Trimester 325 - 514 ug/dL Third Trimester 359 - 609 ug/dL Please note results will not flag based on reference ranges above. Performed By: #### 2 7298-9 #### FRANK TYLER ([id number]) [facility] ([facility]) [address] [place] [address] Iron binding capacity.unsaturated [Mass/Vol] >450 Normal [facility] Comment on above: Performed By: #### 2 7298-9 #### FRANK TYLER (85054) [facility] ([facility]) [address] [place] [address] Iron saturation [Mass fraction] Normal [facility] Comment on above: Result Comment: % SA [...] By: #### 2 7298-9 #### FRANK TYLER (60025) [facility] ([facility]) [address] [place] [address] No Panel Informationon 06-15 [facility] REFLEX ADDED, ANEMIA PANELon 06-15-2023 REFLEX ADDED, ANEMIA PANEL Normal [facility] Comment on above: Result Comment: Ferr itin, Vitamin B12, Folate, and TIBC Performed By: #### 2 7298-9 #### FRANK TYLER ([id number]) [facility] ([facility]) [address] [place] [address] Surgical pathology studyon 0 06-15-2023 Surgical pathology study Pathology report.total SEE COMMENT Surgical Pathology Case: [id number] Authorizing Provider: Kayleen Loredo MD Collected: 06/15/2023 0622 Ordering Location: [facility] Received: 06/16/2023 [facility] 2 Obstetrics and Gynecology Pathologist: Ryan [...] located 3.0 cm from the nearest margin. Practice Representative sections are submitted in 5 cassettes. LMP Summary of Cassettes: Specimen Label Site A 1 umbilical cord sections 2 membrane rolls 3 placental parenchyma, umbilical cord insertion site 4 placental parenchyma 5 placental parenchyma/rubbery area maternal surface Normal [facility] Vitamin B12, Pregnancyon Cobalamin (Vitamin B12) [Mass/Vol] 304 pg/mL [facility] Blood type and Indirect anti body screen panel (Bld)on 06-14-2023 ABO group Nom (Bld) A [facility] Blood group antibody screen Ql Negative [facility] D Ag Ql (Bld) Positive [facility] ABO group Nom (Bld) A Normal [facility] Comment on above: Performed By: #### 2 7298-9 #### FRANK TYLER ([id number]) [facility] ([facility]) [address] [place] [address] Blood group antibody screen Ql Negative Normal [facility] Comment on above: Performed By: #### 2 7298-9 #### FRANK TYLER ([id number]) [facility] ([facility]) [address] [place] [address] D Ag Ql (Bld) Positive Normal [facility] Comment on above: Performed By: #### 2 7298-9 #### FRANK TYLER ([id number]) [facility] ([facility]) [address] [place] [address] CBC panel Auto (Bld)on 06-14 Erythrocyte distribution width (RBC) [Ratio] 11.8 % 11.5 - 14.5 % [facility] Hematocrit (Bld) [Volume fraction] 28.6 % Low 36.0 - 46.0 % [facility] Hemoglobin (Bld) [Mass/Vol] 9.0 g/dL Low 12.0 - 16.0 g/dL [facility] Interpretation and review of laboratory results Abnormal [facility] MCH (RBC) [Entitic mass] 26.6 pg 26.0 - 34.0 pg [facility] MCHC (RBC) [Mass/Vol] 31.5 g/dL Low 32.0 - 36.0 g/dL [facility] MCV (RBC) [Entitic vol] 85 fL 80 - 100 fL [facility] Nucleated RBC/100 WBC (Bld) [Ratio] 0.2 % High [facility] Platelets (Bld) [#/Vol] 316 10*3/uL [facility] RBC (Bld) [#/Vol] 3.38 10*6/uL Low Unive [facility] WBC (Bld) [#/Vol] 12.0 10*3/uL High Unive [facility] Erythrocyte distribution width (RBC) [Ratio] 11.8 % Normal 11.5-14.5 [facility] Comment on above: Performed By: #### 2 7298-9 #### FRANK TYLER ([id number]) [facility] ([facility]) [address] [place] [address] Hematocrit (Bld) [Volume fraction] 28.6 % Low 36.0-46.0 [facility] Comment on above: Performed By: #### 2 7298-9 #### FRANK TYLER ([id number]) [facility] ([facility]) [address] [place] [address] Hemoglobin (Bld) [Mass/Vol] 9.0 g/dL Low 12.0-16.0 [facility] Comment on above: Performed By: #### 2 7298-9 #### FRANK TYLER ([id number]) [facility] ([facility]) [address] [place] [address] MCH (RBC) [Entitic mass] 26.6 pg Normal 26.0-34.0 [facility] Comment on above: Performed By: #### 2 7298-9 #### FRANK TYLER ([id number]) [facility] ([facility]) [address] [place] [address] MCHC (RBC) [Mass/Vol] 31.5 g/dL Low 32.0-36.0 [facility] Comment on above: Performed By: #### 2 7298-9 #### FRANK TYLER ([id number]) [facility] ([facility]) [address] [place] [address] MCV (RBC) [Entitic vol] 85 fL Normal 80-100 [facility] Comment on above: Performed By: #### 2 7298-9 #### FRANK TYLER ([id number]) [facility] ([facility]) [address] [place] [address] Nucleated RBC/100 WBC (Bld) [Ratio] 0.2 /100 WBCs High 0.0-0.0 [facility] Comment on above: Performed By: #### 2 7298-9 #### FRANK TYLER ([id number]) [facility] ([facility]) [address] [place] [address] Platelets (Bld) [#/Vol] 316 x10*3/uL Normal 150-450 [facility] Comment on above: Performed By: #### 2 7298-9 #### FRANK TYLER ([id number]) [facility] ([facility]) [address] [place] [address] RBC (Bld) [#/Vol] 3.38 x10*6/uL Low 4.00-5.20 [facility] Comment on above: Performed By: #### 2 7298-9 #### FRANK TYLER ([id number]) [facility] ([facility]) [address] [place] [address] WBC (Bld) [#/Vol] 12.0 x10*3/uL High 4.4-11.3 [facility] Comment on above: Performed By: #### 2 7298-9 #### FRANK TYLER ([id number]) [facility] ([facility]) [address] [place] [address] Comprehensive metabolic 2000 panelon 06-14-2023 Albumin BCP dye [Mass/Vol] 3.1 g/dL Low 3.4 - 5.0 g/dL [facility] ALP [Catalytic activity/Vol] 196 U/L High 33 - 110 U/L [facility] ALT With P-5'-P [Catalytic activity/Vol] 15 U/L 7 - 45 U/L [facility] Comment on above: Patients treated wit h Sulfasalazine may generate falsely decreased results for ALT. Anion gap [Moles/Vol] 13 mmol/L 10 - 20 mmol/L [facility] AST With P-5'-P [Catalytic activity/Vol] 19 U/L 9 - 39 U/L [facility] Bilirubin [Mass/Vol] 0.3 mg/dL 0.0 - 1 .2 mg/dL [facility] Calcium [Mass/Vol] 8.6 mg/dL 8.6 - 10. 6 mg/dL [facility] Chloride [Moles/Vol] 106 mmol/L 98 - 10 7 mmol/L [facility] CO2 [Moles/Vol] 23 mmol/L 21 - 32 mmol/L [facility] Creatinine [Mass/Vol] 0.59 mg/dL 0.50 - 1.05 mg/dL [facility] eGFR - PINF [facility] Comment on above: Calculations of andrey mated GFR are performed using the 2020 CKD-EPI Study Refit equation without the race variable for the IDMS-Traceable creatinine methods. https://jasn.asnjournals.org/content//ASN.1679142 988 Glucose [Mass/Vol] 76 mg/dL 74 - 99 mg/dL [facility] Interpretation and review of laboratory results Abnormal [facility] Potassium [Moles/Vol] 4.3 mmol/L 3.5 - 5.3 mmol/L [facility] Protein [Mass/Vol] 6.0 g/dL Low 6.4 - 8.2 g/dL [facility] Sodium [Moles/Vol] 138 mmol/L 136 - 145 mmol/L [facility] Urea nitrogen [Mass/Vol] 10 mg/dL 6 - 23 mg/dL [facility] Albumin BCP dye [Mass/Vol] 3.1 g/dL Low 3.4-5.0 [facility] Comment on above: Performed By: #### 2 7298-9 #### FRANK TYLER ([id number]) [facility] ([facility] [address] [place] [address] ALP [Catalytic activity/Vol] 196 U/L High 33-110 [facility] Comment on above: Performed By: #### 2 7298-9 #### FRANK TYLER ([id number]) [facility] ([facility] [address] [place] [address] ALT With P-5'-P [Catalytic activity/Vol] 15 U/L Normal 7-45 [facility] Comment on above: Result Comment: Zaira ents treated with Sulfasalazine may generate falsely decreased results for ALT. Performed By: #### 2 7298-9 #### FRANK TYLER ([id number]) [facility] ([facility] [address] [place] [address] Anion gap [Moles/Vol] 13 mmol/L Normal 10-20 [facility] Comment on above: Performed By: #### 2 7298-9 #### FRANK TYLER ([id number]) [facility] ([facility] [address] [place] [address] AST With P-5'-P [Catalytic activity/Vol] 19 U/L Normal 9-39 [facility] Comment on above: Performed By: #### 2 7298-9 #### FRANK TYLER ([id number]) [facility] ([facility]) [address] [place] [address] Bilirubin [Mass/Vol] 0.3 mg/dL Normal 0.0-1.2 [facility] Comment on above: Performed By: #### 2 7298-9 #### FRANK TYLER ([id number]) [facility] ([facility]) [address] [place] [address] Calcium [Mass/Vol] 8.6 mg/dL Normal 8.6-10.6 [facility] Comment on above: Performed By: #### 2 7298-9 #### FRANK TYLER ([id number]) [facility] ([facility]) [address] [place] [address] Chloride [Moles/Vol] 106 mmol/L Normal 98-107 [facility] Comment on above: Performed By: #### 2 7298-9 #### FRANK TYLER ([id number]) [facility] ([facility]) [address] [place] [address] CO2 [Moles/Vol] 23 mmol/L Normal 21-32 [facility] Comment on above: Performed By: #### 2 7298-9 #### FRANK TYLER ([id number]) [facility] ([facility]) [address] [place] [address] Creatinine [Mass/Vol] 0.59 mg/dL Normal 0.50-1.05 [facility] Comment on above: Performed By: #### 2 7298-9 #### FRANK TYLER ([id number]) [facility] ([facility]) [address] [place] [address] GFR/1.73 sq M.predicted MDRD (S/P/Bld) [Vol rate/Area] mL/min/{1.73_m2} Normal >60 [facility] Comment on above: Result Comment: Calc ulations of estimated GFR are performed using the 2020 CKD-EPI Study Refit equation without the race variable for the IDMS-Traceable creatinine methods. https://jasn.asnjournals.org/content//ASN.2980721 988 Performed By: #### 2 7298-9 #### FRANK TYLER ([id number]) [facility] ([facility]) [address] [place] [address] Glucose [Mass/Vol] 76 mg/dL Normal 74-99 [facility] Comment on above: Performed By: #### 2 7298-9 #### FRANK TYLER ([id number]) [facility] ([facility]) [address] [place] [address] Potassium [Moles/Vol] 4.3 mmol/L Normal 3.5-5.3 [facility] Comment on above: Performed By: #### 2 7298-9 #### FRANK TYLER ([id number]) [facility] ([facility]) [address] [place] [address] Protein [Mass/Vol] 6.0 g/dL Low 6.4-8.2 [facility] Comment on above: Performed By: #### 2 7298-9 #### FRANK TYLER ([id number]) [facility] ([facility]) [address] [place] [address] Sodium [Moles/Vol] 138 mmol/L Normal 136-145 [facility] Comment on above: Performed By: #### 2 7298-9 #### FRANK TYLER ([id number]) [facility] ([facility]) [address] [place] [address] Urea nitrogen [Mass/Vol] 10 mg/dL Normal 6-23 [facility] Comment on above: Performed By: #### 2 7298-9 ###Inderjit TYLER ([id number]) [facility] ([facility]) [address] [place] [address] Syphillis Screen, with refle x VDRLOrdered By: Buck Marshall on 06-14-2023 T. pallidum Ab Ql (S) Non-Reactive Nonreactive [facility] Comment on above: No significant level of Treponema pallidum antibody detected. Repeat testing in 2 to 4 weeks may be considered if early infection or incubating syphilis infection is suspected. T. pallidum Ab Ql (S)Ordered By: Buck Marshall on 06-14-2023 Interpretation and review of laboratory results Normal [facility] Treponema pallidum Abon 06-05 T. pallidum Ab Ql (S) Non-Reactive Normal Nonreactive [facility] Comment on above: Order Comment: This test is for Syphilis screening, for Syphilis monitoring order RPR with Titer, Syphilis Monitoring Result Comment: No s ignificant level of Treponema pallidum antibody detected. Repeat testing in 2 to 4 weeks may be considered if early infection or incubating syphilis infection is suspected. Performed By: #### 2 7298-9 #### FRANK TYLER ([id number]) [facility] ([facility]) [address] [place] [address] Blood type and Indirect anti body screen panel (Bld)on 06-13-2023 ABO group Nom (Bld) A [facility] Blood group antibody screen Ql Negative [facility] D Ag Ql (Bld) Positive [facility] ABO group Nom (Bld) A Normal [facility] Comment on above: Performed By: #### 3 4532-2 #### ÁNGEL Morton ([id number]) [facility] ([facility]) [address] [place] [id number] Blood group antibody screen Ql Negative Normal [facility] Comment on above: Performed By: #### 3 4532-2 #### ÁNGEL Morton ([id number]) [facility] ([facility]) [address] [place] [address] D Ag Ql (Bld) Positive Normal [facility] Comment on above: Performed By: #### 3 4532-2 #### ÁNGEL Morton ([id number]) [facility] [address] [place] [address] CBC W Auto Differential pane l (Bld)on 06-13-2023 Basophils (Bld) [#/Vol] 0.07 10*3/uL [facility] Basophils/100 WBC (Bld) 0.6 % 0.0 - 2.0 % [facility] Eosinophils (Bld) [#/Vol] 0.10 10*3/uL [facility] Eosinophils/100 WBC (Bld) 0.8 % 0.0 - 6.0 % [facility] Erythrocyte distribution width (RBC) [Ratio] 11.7 % 11.5 - 14.5 % [facility] Hematocrit (Bld) [Volume fraction] 28.3 % Low 36.0 - 46.0 % [facility] Hemoglobin (Bld) [Mass/Vol] 9.1 g/dL Low 12.0 - 16.0 g/dL [facility] Immature granulocytes (Bld) [#/Vol] 0.24 10*3/uL [facility] Immature granulocytes/100 WBC (Bld) 1.9 % High 0.0 - 0.9 % [facility] Comment on above: Immature Granulocyte Count (IG) includes promyelocytes, myelocytes and metamyelocytes but does not include bands. Percent differential counts (%) should be interpreted in the context of the absolute cell counts (cells/UL). Interpretation and review of laboratory results Abnormal [facility] Lymphocytes (Bld) [#/Vol] 2.64 10*3/uL [facility] Lymphocytes/100 WBC (Bld) 20.9 % 13.0 - 44.0 % [facility] MCH (RBC) [Entitic mass] 27.1 pg 26.0 - 34.0 pg [facility] MCHC (RBC) [Mass/Vol] 32.2 g/dL 32.0 - 36.0 g/dL [facility] MCV (RBC) [Entitic vol] 84 fL 80 - 100 fL [facility] Monocytes (Bld) [#/Vol] 0.84 10*3/uL [facility] Monocytes/100 WBC (Bld) 6.7 % 2.0 - 10.0 % [facility] Neutrophils (Bld) [#/Vol] 8.73 10*3/uL High [facility] Comment on above: Percent differential counts (%) should be interpreted in the context of the absolute cell counts (cells/uL). Neutrophils/100 WBC (Bld) 69.1 % 40.0 - 80.0 % [facility] Nucleated RBC/100 WBC (Bld) [Ratio] 0.3 % High [facility] Platelets (Bld) [#/Vol] 337 10*3/uL [facility] RBC (Bld) [#/Vol] 3.36 10*6/uL Low [facility] WBC (Bld) [#/Vol] 12.6 10*3/uL High [facility] Basophils (Bld) [#/Vol] 0.07 x10*3/uL Normal 0.00-0.10 [facility] Comment on above: Performed By: #### 5 7021-8 #### ÁNGEL Morton ([id number]) [facility] ([facility]) [address] [place] [address] Basophils/100 WBC (Bld) 0.6 % Normal 0.0-2.0 [facility] Comment on above: Performed By: #### 5 7021-8 #### ÁNGEL Morton ([id number]) [facility] ([facility]) [address] [place] [address] Eosinophils (Bld) [#/Vol] 0.10 x10*3/uL Normal 0.00-0.70 [facility] Comment on above: Performed By: #### 5 7021-8 #### ÁNGEL Morton ([id number]) [facility] ([facility]) [address] [place] [address]182 Eosinophils/100 WBC (Bld) 0.8 % Normal 0.0-6.0 [facility] Comment on above: Performed By: #### 5 7021-8 #### ÁNGEL Morton ([id number]) [facility] ([facility]) [address] [place] [address] Erythrocyte distribution width (RBC) [Ratio] 11.7 % Normal 11.5-14.5 [facility] Comment on above: Performed By: #### 5 7021-8 #### ÁNGEL Morton ([id number]) [facility] ([facility]) [address] [place] [address] Hematocrit (Bld) [Volume fraction] 28.3 % Low 36.0-46.0 [facility] Comment on above: Performed By: #### 5 7021-8 #### ÁNGEL Morton ([id number]) [facility] ([facility]) [address] [place] [address] Hemoglobin (Bld) [Mass/Vol] 9.1 g/dL Low 12.0-16.0 [facility] Comment on above: Performed By: #### 5 7021-8 #### ÁNGEL Morton ([id number]) [facility] ([facility]) [address] [place] [address] Immature granulocytes (Bld) [#/Vol] 0.24 x10*3/uL Normal 0.00-0.70 [facility] Comment on above: Performed By: #### 5 7021-8 #### ÁNGEL Morton ([id number]) [facility] ([facility]) [address] [place] [address] Immature granulocytes/100 WBC (Bld) 1.9 % High 0.0-0.9 [facility] Comment on above: Result Comment: Sheila ture Granulocyte Count (IG) includes promyelocytes, myelocytes and metamyelocytes but does not include bands. Percent differential counts (%) should be interpreted in the context of the absolute cell counts (cells/UL). Performed By: #### 5 7021-8 #### ÁNGEL Morton ([id number]) [facility] ([facility]) [address] [place] [address] [place] [address] Lymphocytes (Bld) [#/Vol] 2.64 x10*3/uL Normal 1.20-4.80 [facility] Comment on above: Performed By: #### 5 7021-8 #### ÁNGEL Morton ([id number]) [facility] ([facility]) [address] [place] [address] Lymphocytes/100 WBC (Bld) 20.9 % Normal 13.0-44.0 [facility] Comment on above: Performed By: #### 5 7021-8 #### ÁNGEL Morton ([id number]) [facility] ([facility]) [address] [place] [address] MCH (RBC) [Entitic mass] 27.1 pg Normal 26.0-34.0 [facility] Comment on above: Performed By: #### 5 7021-8 #### ÁNGEL Morton ([id number]) [facility] ([facility]) [address] [place] [address] 11623 MCHC (RBC) [Mass/Vol] 32.2 g/dL Normal 32.0-36.0 [facility] Comment on above: Performed By: #### 5 7021-8 #### ÁNGEL Morton ([id number]) [facility] ([facility]) [address] [place] [address] MCV (RBC) [Entitic vol] 84 fL Normal 80-100 [facility] Comment on above: Performed By: #### 5 7021-8 #### ÁNGEL Morton ([id number]) [facility] ([facility]) [address] [place] [address]156 Monocytes (Bld) [#/Vol] 0.84 x10*3/uL Normal 0.10-1.00 [facility] Comment on above: Performed By: #### 5 7021-8 #### ÁNGEL Morton ([id number]) [facility] ([facility]) [address] [place] [address]192 Monocytes/100 WBC (Bld) 6.7 % Normal 2.0-10.0 [facility] Comment on above: Performed By: #### 5 7021-8 #### ÁNGEL Morton ([id number]) [facility] ([facility]) [address] [place] [address] 18948 Neutrophils (Bld) [#/Vol] 8.73 x10*3/uL High 1.20-7.70 [facility] Comment on above: Result Comment: Perc ent differential counts (%) should be interpreted in the context of the absolute cell counts (cells/uL). Performed By: #### 5 7021-8 #### ÁNGEL Morton ([id number]) [facility] ([facility]) [address] [place] [address]25 Neutrophils/100 WBC (Bld) 69.1 % Normal 40.0-80.0 [facility] Comment on above: Performed By: #### 5 7021-8 #### ÁNGEL Morton ([id number]) [facility] ([facility]) [address] [place] [address] 85708 Nucleated RBC/100 WBC (Bld) [Ratio] 0.3 /100 WBCs High 0.0-0.0 [facility] Comment on above: Performed By: #### 5 7021-8 #### ÁNGEL Morton ([id number]) [facility] ([facility]) [address] [place] [address] 24460 Platelets (Bld) [#/Vol] 337 x10*3/uL Normal 150-450 [facility] Comment on above: Performed By: #### 5 7021-8 #### ÁNGEL Morton ([id number]) [facility] ([facility]) [address] [place] [address] RBC (Bld) [#/Vol] 3.36 x10*6/uL Low 4.00-5.20 [facility] Comment on above: Performed By: #### 5 7021-8 #### ÁNGEL Morton ([id number]) [facility] ([facility]) [address] [place] [address]8941 WBC (Bld) [#/Vol] 12.6 x10*3/uL High 4.4-11.3 [facility] Comment on above: Performed By: #### 5 7021-8 #### ÁNGEL Morton ([id number]) [facility] ([facility]) [address] [place], [place] [address] Comprehensive metabolic 2000 panelon 06-13-2023 Albumin BCP dye [Mass/Vol] 3.1 g/dL Low 3.4 - 5.0 g/dL [facility] ALP [Catalytic activity/Vol] 189 U/L High 33 - 110 U/L [facility] ALT With P-5'-P [Catalytic activity/Vol] 17 U/L 7 - 45 U/L [facility] Comment on above: Patients treated wit h Sulfasalazine may generate falsely decreased results for ALT. Anion gap [Moles/Vol] 13 mmol/L 10 - 20 mmol/L [facility] AST With P-5'-P [Catalytic activity/Vol] 21 U/L 9 - 39 U/L [facility] Bilirubin [Mass/Vol] 0.3 mg/dL 0.0 - 1 .2 mg/dL [facility] Calcium [Mass/Vol] 8.5 mg/dL Low 8.6 - 10. 6 mg/dL [facility] Chloride [Moles/Vol] 107 mmol/L 98 - 10 7 mmol/L [facility] CO2 [Moles/Vol] 24 mmol/L 21 - 32 mmol/L [facility] Creatinine [Mass/Vol] 0.65 mg/dL 0.50 - 1.05 mg/dL [facility] eGFR - PINF [facility] Comment on above: Calculations of andrey mated GFR are performed using the 2020 CKD-EPI Study Refit equation without the race variable for the IDMS-Traceable creatinine methods. https://jasn.asnjournals.org/content/early//ASN.3434109 988 Glucose [Mass/Vol] 83 mg/dL 74 - 99 mg/dL [facility] Interpretation and review of laboratory results Abnormal [facility] Potassium [Moles/Vol] 4.0 mmol/L 3.5 - 5.3 mmol/L [facility] Protein [Mass/Vol] 6.2 g/dL Low 6.4 - 8.2 g/dL [facility] Sodium [Moles/Vol] 140 mmol/L 136 - 145 mmol/L [facility] Urea nitrogen [Mass/Vol] 9 mg/dL 6 - 23 mg/dL [facility] Albumin BCP dye [Mass/Vol] 3.1 g/dL Low 3.4-5.0 [facility] Comment on above: Performed By: #### 2 4323-8 #### ÁNGEL Morton ([id number]) [facility] ([facility]) [address] [place] [address] 88212 ALP [Catalytic activity/Vol] 189 U/L High 33-110 [facility] Comment on above: Performed By: #### 2 4323-8 #### ÁNGEL Morton ([id number]) [facility] ([facility]) [address] [place] [address] 77336 ALT With P-5'-P [Catalytic activity/Vol] 17 U/L Normal 7-45 [facility] Comment on above: Result Comment: Zaira ents treated with Sulfasalazine may generate falsely decreased results for ALT. Performed By: #### 2 4323-8 #### ÁNGEL Morton ([id number]) [facility] ([facility]) [address] [place] [address]1869 Anion gap [Moles/Vol] 13 mmol/L Normal 10-20 [facility] Comment on above: Performed By: #### 2 4323-8 #### ÁNGEL Morton ([id number]) [facility] ([facility]) [address] [place] [address] AST With P-5'-P [Catalytic activity/Vol] 21 U/L Normal 9-39 [facility] Comment on above: Performed By: #### 2 4323-8 #### ÁNGEL MILLER L ([id number]) [facility] ([facility]) [address] [place] [address] Bilirubin [Mass/Vol] 0.3 mg/dL Normal 0.0-1.2 [facility] Comment on above: Performed By: #### 2 4323-8 #### ÁNGEL Morton ([id number]) [facility] ([facility]) [address] [place] [address] 15958 Calcium [Mass/Vol] 8.5 mg/dL Low 8.6-10.6 [facility] Comment on above: Performed By: #### 2 4323-8 #### ÁNGEL MILLER L ([id number]) [facility] ([facility]) [address] [place] [address] 24937 Chloride [Moles/Vol] 107 mmol/L Normal 98-107 [facility] Comment on above: Performed By: #### 2 4323-8 #### ÁNGEL MLILER L ([id number]) [facility] ([facility]) [address] [place] [address] 02966 CO2 [Moles/Vol] 24 mmol/L Normal 21-32 [facility] Comment on above: Performed By: #### 2 4323-8 #### ÁNGEL Morton ([id number]) [facility] ([facility]) [address] [place] [address] 24351 Creatinine [Mass/Vol] 0.65 mg/dL Normal 0.50-1.05 [facility] Comment on above: Performed By: #### 2 4323-8 #### ÁNGEL MILLER L ([id number]) [facility] ([facility]) [address] [place] [address] 77471 GFR/1.73 sq M.predicted MDRD (S/P/Bld) [Vol rate/Area] mL/min/{1.73_m2} Normal >60 [facility] Comment on above: Result Comment: Calc ulations of estimated GFR are performed using the 2020 CKD-EPI Study Refit equation without the race variable for the IDMS-Traceable creatinine methods. https://jasn.asnjournals.org/content//ASN.6242128 988 Performed By: #### 2 4323-8 #### ÁNGEL Morton ([id number]) [facility] ([facility]) [address] [place] [address] 11960 Glucose [Mass/Vol] 83 mg/dL Normal 74-99 [facility] Comment on above: Performed By: #### 2 4323-8 #### ÁNGEL Morton ([id number]) [facility] ([facility]) [address] [place] [address] 47258 Potassium [Moles/Vol] 4.0 mmol/L Normal 3.5-5.3 [facility] Comment on above: Performed By: #### 2 4323-8 #### ÁNGEL Morton ([id number]) [facility] ([facility]) [address] [place] [address] 23147 Protein [Mass/Vol] 6.2 g/dL Low 6.4-8.2 [facility] Comment on above: Performed By: #### 2 4323-8 #### ÁNGEL Morton ([id number]) [facility] ([facility]) [address] [place] [address] 87061 Sodium [Moles/Vol] 140 mmol/L Normal 136-145 [facility] Comment on above: Performed By: #### 2 4323-8 #### ÁNGEL Morton ([id number]) [facility] ([facility]) [address] [place] [address] 42229 Urea nitrogen [Mass/Vol] 9 mg/dL Normal 6-23 [facility] Comment on above: Performed By: #### 2 4323-8 #### ÁNGEL Morton (25591) [facility] ([facility]) [address] [place] [address] 38346 LDH Lactate to pyruvate reac tion [Catalytic activity/Vol]on 06-13-2023 Interpretation and review of laboratory results Normal [facility] Lactate Dehydrogenaseon LDH Lactate to pyruvate reaction [Catalytic activity/Vol] 217 U/L 84 - 246 U/L [facility] Lactate dehydrogenaseon LDH Lactate to pyruvate reaction [Catalytic activity/Vol] 217 U/L Normal 84-246 [facility] Comment on above: Performed By: #### 1 4804-9 #### ÁNGEL Morton ([id number]) [facility] ([facility]) [address] [place] [address] 20633 No Panel Informationon 06-13 Interpretation and review of laboratory results Abnormal [facility] Proteinon 06-13-2023 Protein Qn (U) 15 mg/dL Normal 5-24 [facility] Comment on above: Performed By: #### 2 7298-9 #### ÁNGEL Morton ([id number]) [facility] ([facility]) [address] [place] [address] 40931 Protein Qn (U)on 06-13-2023 Creatinine (U) [Mass/Vol] 45.1 mg/dL 20.0 - 320.0 mg/dL [facility] Interpretation and review of laboratory results Abnormal [facility] Protein/Creatinine (U) [Mass ratio] 0.33 mg/g High [facility] Creatinine (U) [Mass/Vol] 45.1 mg/dL Normal 20.0-320.0 [facility] Comment on above: Performed By: #### 2 7298-9 #### ÁNGEL Morton ([id number]) [facility] ([facility]) [address] [place] [address] 62305 Protein/Creatinine (U) [Mass ratio] 0.33 mg/mg Creat High 0.00-0.17 [facility] Comment on above: Performed By: #### 2 7298-9 #### ÁNGEL Morton ([id number]) [facility] ([facility]) [address] [place] [address] 61260 Protein, Urine Randomon Protein Qn (U) 15 mg/dL 5 - 24 mg/dL [facility] Streptococcus.beta-hemolytic on 06-13-2023 Streptococcus.beta-h emolytic Org specific cx Ql (Genital specimen) Test: Group B Streptococcus (GBS) Screen, Culture Specimen Source: Vaginal/Rectal Specimen Type: Swab Specimen Date: 06/13/2023 4:05 PM Result Date: 06/16/2023 12:07 PM Result Status: Final result Abnormal: No Resulting Lab: [facility] [id number] [place] [address] CULTURE No Group B Streptococcus (GBS) isolated Normal [facility] Comment on above: Performed By: #### 2 7298-9 #### FRANK TYLER ([id number]) [facility] ([facility]) [address] [place] [address] Urinalysis complete panel (U )on 06-13-2023 Appearance (U) Hazy Abnormal Clear [facility] Bilirubin (U) [Mass/Vol] Negative NEGATIVE [facility] Color (U) Yellow Straw, Yellow [facility] Glucose Auto test strip (U) [Mass/Vol] Negative NEGATIVE mg/dL [facility] Ketones (U) [Mass/Vol] Negative NEGATIVE mg/dL [facility] Leukocyte esterase Auto test strip Ql (U) LARGE (3+) Abnormal NEGATIVE [facility] Nitrite Auto test strip Ql (U) Negative NEGATIVE [facility] pH (U) 7.0 [pH] 5.0, 5.5, 6.0, 6.5, 7.0, 7.5, 8.0 [facility] Protein (U) [Mass/Vol] Negative NEGATIVE mg/dL [facility] RBC (U) [#/Vol] Negative NEGATIVE [facility] Specific gravity (U) [Rel density] 1.006 1.005 - 1.035 [facility] Urobilinogen (U) [Mass/Vol] mg/dL NINF - 2.0 mg/dL [facility] Appearance (U) Hazy Normal Clear [facility] Comment on above: Performed By: #### 2 4356-8 #### ÁNGEL Morton ([id number]) [facility] ([facility]) [address] [place] [address] Bilirubin (U) [Mass/Vol] Negative Normal NEGATIVE [facility] Comment on above: Performed By: #### 2 4356-8 #### ÁNGEL Morton ([id number]) [facility] ([facility]) [address] [place] [id number] Color (U) Yellow Normal Straw, Yellow [facility] Comment on above: Performed By: #### 2 4356-8 #### ÁNEGL Morton ([id number]) [facility] ([facility]) [address] [place] [id number] Glucose Auto test strip (U) [Mass/Vol] Negative Normal NEGATIVE [facility] Comment on above: Performed By: #### 2 4356-8 #### ÁNGEL Morton ([id number]) [facility] ([facility]) [address] [place] [address] Ketones (U) [Mass/Vol] Negative Normal NEGATIVE [facility] Comment on above: Performed By: #### 2 4356-8 #### ÁNGEL Morton ([id number]) [facility] ([facility]) [address] [place] [address] 55960 Leukocyte esterase Auto test strip Ql (U) LARGE (3+) Abnormal NEGATIVE [facility] Comment on above: Performed By: #### 2 4356-8 #### ÁNGEL Morton ([id number]) [facility] ([facility]) [address] [place] [address] 84637 Nitrite Auto test strip Ql (U) Negative Normal NEGATIVE [facility] Comment on above: Performed By: #### 2 4356-8 #### ÁNGEL Morton ([id number]) [facility] ([facility]) [address] [place] [address] 37110 pH (U) 7.0 [pH] Normal 5.0, 5.5, 6.0, 6.5, 7.0, 7.5, 8.0 [facility] Comment on above: Performed By: #### 2 4356-8 #### ÁNGEL Morton ([id number]) [facility] ([facility]) [address] [place] [address] 08628 Protein (U) [Mass/Vol] Negative Normal NEGATIVE [facility] Comment on above: Performed By: #### 2 4356-8 #### ÁNGEL Morton ([id number]) [facility] ([facility]) [address] [place] [address] 03917 RBC (U) [#/Vol] Negative Normal NEGATIVE [facility] Comment on above: Performed By: #### 2 4356-8 #### ÁNGEL Morton ([id number]) [facility] ([facility]) [address] [place] [address] 80011 Specific gravity (U) [Rel density] 1.006 Normal 1.005-1.035 [facility] Comment on above: Performed By: #### 2 4356-8 #### ÁNGEL Morton ([id number]) [facility] ([facility]) [address] [place] [address] 09964 Urobilinogen (U) [Mass/Vol] mg/dL Normal <2.0 [facility] Comment on above: Performed By: #### 2 4356-8 #### ÁNGEL Morton ([id number]) [facility] ([facility]) [address] [place] [address] 81224 Urinalysis microscopic panel Auto Ql (U)on 06-13-2023 Bacteria Auto (Urine sed) [#/Area] 3+ Abnormal NONE SEEN /HPF [facility] Epithelial cells.squamous Auto (Urine sed) [#/Area] 1-9 (SPARSE) Reference range not established. /HPF [facility] RBC Auto (Urine sed) [#/Area] 1-2 NONE, 1-2, 3-5 /HPF [facility] WBC Auto (Urine sed) [#/Area] 1-5 1-5, NONE /HPF [facility] Bacteria Auto (Urine sed) [#/Area] 3+ /HPF Abnormal NONE SEEN [facility] Comment on above: Performed By: #### 5 3315-8 #### ÁNGEL Morton ([id number]) [facility] ([facility]) [address] [place] [address] 32973 Epithelial cells.squamous Auto (Urine sed) [#/Area] 1-9 (SPARSE) Normal Reference range not established. [facility] Comment on above: Performed By: #### 5 3315-8 #### ÁNGEL Morton ([id number]) [facility] ([facility]) [address] [place] [address] RBC Auto (Urine sed) [#/Area] 1-2 Normal NONE, 1-2, 3-5 [facility] Comment on above: Performed By: #### 5 3315-8 #### ÁNGEL Morton ([id number]) [facility] ([facility]) [address] [place] [address] 85002 WBC Auto (Urine sed) [#/Area] 1-5 Normal 1-5, NONE [facility] Comment on above: Performed By: #### 5 3315-8 #### ÁNGEL Morton ([id number]) [facility] ([facility]) [address] [place], [place] [id number] Bacterial vaginosison 2023 Bacterial vaginosis Ql (Vag fld) [Interp] NIKKY SCORE 0 Interpretation of the Nikky Score 0-3.....Normal vaginal microbiota 4-6.....Intermediate results 7-10....Bacterial vaginosis Yeast ABSENT Clue cells ABSENT Normal ABSENT [facility] Comment on above: Performed By: #### 6 9568-4 #### ÁNGEL Morton ([id number]) [facility] ([facility]) [address] [place], [place] [phone] CBC panel Auto (Bld)on 06-07 Erythrocyte distribution width (RBC) [Ratio] 11.7 % 11.5 - 14.5 % [facility] Hematocrit (Bld) [Volume fraction] 31.9 % Low 36.0 - 46.0 % [facility] Hemoglobin (Bld) [Mass/Vol] 10.2 g/dL Low 12.0 - 16.0 g/dL [facility] Interpretation and review of laboratory results Abnormal [facility] MCH (RBC) [Entitic mass] 26.9 pg 26.0 - 34.0 pg [facility] MCHC (RBC) [Mass/Vol] 32.0 g/dL 32.0 - 36.0 g/dL [facility] MCV (RBC) [Entitic vol] 84 fL 80 - 100 fL [facility] Nucleated RBC/100 WBC (Bld) [Ratio] 0.0 % [facility] Platelets (Bld) [#/Vol] 355 10*3/uL [facility] RBC (Bld) [#/Vol] 3.79 10*6/uL Low [facility] WBC (Bld) [#/Vol] 12.1 10*3/uL High [facility]ive [facility] Erythrocyte distribution width (RBC) [Ratio] 11.7 % Normal 11.5-14.5 [facility] Comment on above: Performed By: #### 5 8410-2 #### FRANK TYLER ([id number]) [facility] ([facility]) [address] [place] [address] Hematocrit (Bld) [Volume fraction] 31.9 % Low 36.0-46.0 [facility] Comment on above: Performed By: #### 5 8410-2 #### FRANK TYLER ([id number]) [facility] ([facility]) [address] [place] [address] Hemoglobin (Bld) [Mass/Vol] 10.2 g/dL Low 12.0-16.0 [facility] Comment on above: Performed By: #### 5 8410-2 #### FRANK TYLER ([id number]) [facility] ([facility]) [address] [place] [address] MCH (RBC) [Entitic mass] 26.9 pg Normal 26.0-34.0 [facility] Comment on above: Performed By: #### 5 8410-2 #### FRANK TYLER ([id number]) [facility] ([facility]) [address] [place] [address] MCHC (RBC) [Mass/Vol] 32.0 g/dL Normal 32.0-36.0 [facility] Comment on above: Performed By: #### 5 8410-2 #### FRANK TYLER ([id number]) [facility] ([facility]) [address] [place] [address] MCV (RBC) [Entitic vol] 84 fL Normal 80-100 [facility] Comment on above: Performed By: #### 5 8410-2 #### FRANK TYLER ([id number]) [facility] ([facility]) [address] [place] [address] Nucleated RBC/100 WBC (Bld) [Ratio] 0.0 /100 WBCs Normal 0.0-0.0 [facility] Comment on above: Performed By: #### 5 8410-2 #### FRANK TYLER ([id number]) [facility] ([facility]) [address] [place] [address] Platelets (Bld) [#/Vol] 355 x10*3/uL Normal 150-450 [facility] Comment on above: Performed By: #### 5 8410-2 #### FRANK TYLER ([id number]) [facility] ([facility]) [address] [place] [address] RBC (Bld) [#/Vol] 3.79 x10*6/uL Low 4.00-5.20 [facility] Comment on above: Performed By: #### 5 8410-2 #### FRANK TYLER ([id number]) [facility] ([facility]) [address] [place] [address] WBC (Bld) [#/Vol] 12.1 x10*3/uL High 4.4-11.3 [facility] Comment on above: Performed By: #### 5 8410-2 #### FRANK TYLER ([id number]) [facility] ([facility]) [address] [place] [address] Comprehensive metabolic 2000 panelon 06-07-2023 Albumin BCP dye [Mass/Vol] 3.4 g/dL 3.4 - 5.0 g/dL [facility] ALP [Catalytic activity/Vol] 212 U/L High 33 - 110 U/L [facility] ALT With P-5'-P [Catalytic activity/Vol] 11 U/L 7 - 45 U/L [facility] Comment on above: Patients treated wit h Sulfasalazine may generate falsely decreased results for ALT. Anion gap [Moles/Vol] 14 mmol/L 10 - 20 mmol/L [facility] AST With P-5'-P [Catalytic activity/Vol] 17 U/L 9 - 39 U/L [facility] Bilirubin [Mass/Vol] 0.4 mg/dL 0.0 - 1 .2 mg/dL [facility] Calcium [Mass/Vol] 8.6 mg/dL 8.6 - 10. 3 mg/dL [facility] Chloride [Moles/Vol] 102 mmol/L 98 - 10 7 mmol/L [facility] CO2 [Moles/Vol] 23 mmol/L 21 - 32 mmol/L [facility] Creatinine [Mass/Vol] 0.58 mg/dL 0.50 - 1.05 mg/dL [facility] GFR/1.73 sq M.predicted MDRD (S/P/Bld) [Vol rate/Area] - PINF [facility] Comment on above: Calculations of andrey mated GFR are performed using the 2020 CKD-EPI Study Refit equation without the race variable for the IDMS-Traceable creatinine methods. https://jasn.asnjournals.org/content//ASN.3479547 988 Glucose [Mass/Vol] 91 mg/dL 74 - 99 mg/dL [facility] Interpretation and review of laboratory results Abnormal [facility] Potassium [Moles/Vol] 3.8 mmol/L 3.5 - 5.3 mmol/L [facility] Protein [Mass/Vol] 7.2 g/dL 6.4 - 8.2 g/dL [facility] Sodium [Moles/Vol] 135 mmol/L Low 136 - 145 mmol/L [facility] Urea nitrogen [Mass/Vol] 7 mg/dL 6 - 23 mg/dL [facility] Albumin BCP dye [Mass/Vol] 3.4 g/dL Normal 3.4-5.0 [facility] Comment on above: Performed By: #### 2 4323-8 #### FRANK TYLER ([id number]) [facility] ([facility]) [address] [place] [address] ALP [Catalytic activity/Vol] 212 U/L High 33-110 [facility] Comment on above: Performed By: #### 2 4323-8 #### FRANK TYLER ([id number]) [facility] ([facility]) [address] [place] [address] ALT With P-5'-P [Catalytic activity/Vol] 11 U/L Normal 7-45 [facility] Comment on above: Result Comment: Zaira ents treated with Sulfasalazine may generate falsely decreased results for ALT. Performed By: #### 2 4323-8 #### FRANK TYLER ([id number]) [facility] ([facility]) [address] [place] [address] Anion gap [Moles/Vol] 14 mmol/L Normal 10-20 [facility] Comment on above: Performed By: #### 2 4323-8 #### FRANK TYLER ([id number]) [facility] ([facility]) [address] [place] [address] AST With P-5'-P [Catalytic activity/Vol] 17 U/L Normal 9-39 [facility] Comment on above: Performed By: #### 2 4323-8 #### FRANK TYLER ([id number]) [facility] ([facility]) [address] [place] [address] Bilirubin [Mass/Vol] 0.4 mg/dL Normal 0.0-1.2 [facility] Comment on above: Performed By: #### 2 4323-8 #### FRANK TYLER ([id number]) [facility] ([facility]) [address] [place] [address] Calcium [Mass/Vol] 8.6 mg/dL Normal 8.6-10.3 [facility] Comment on above: Performed By: #### 2 4323-8 #### FRANK TYLER ([id number]) [facility] ([facility]) [address] [place] [address] Chloride [Moles/Vol] 102 mmol/L Normal 98-107 [facility] Comment on above: Performed By: #### 2 4323-8 #### FRANK TYLER ([id number]) [facility] ([facility]) [address] [place] [address] CO2 [Moles/Vol] 23 mmol/L Normal 21-32 [facility] Comment on above: Performed By: #### 2 4323-8 #### FRANK TYLER ([id number]) [facility] ([facility]) [address] [place] [address] Creatinine [Mass/Vol] 0.58 mg/dL Normal 0.50-1.05 [facility] Comment on above: Performed By: #### 2 4323-8 #### FRANK TYLER ([id number]) [facility] ([facility]) [address] [place] [address] GFR/1.73 sq M.predicted MDRD (S/P/Bld) [Vol rate/Area] mL/min/{1.73_m2} Normal >60 [facility] Comment on above: Result Comment: Calc ulations of estimated GFR are performed using the 2020 CKD-EPI Study Refit equation without the race variable for the IDMS-Traceable creatinine methods. https://jasn.asnjournals.org/content/early/ASN.3484371 988 Performed By: #### 2 4323-8 #### FRANK TYLER ([id number]) [facility] ([facility]) [address] [place] [address] Glucose [Mass/Vol] 91 mg/dL Normal 74-99 [facility] Comment on above: Performed By: #### 2 4323-8 #### FRANK TYLER ([id number]) [facility] ([facility]) [address] [place] [address] Potassium [Moles/Vol] 3.8 mmol/L Normal 3.5-5.3 [facility] Comment on above: Performed By: #### 2 4323-8 #### FRANK TYLER ([id number]) [facility] ([facility]) [address] [place] [address] Protein [Mass/Vol] 7.2 g/dL Normal 6.4-8.2 [facility] Comment on above: Performed By: #### 2 4323-8 #### FRANK TYLER ([id number]) [facility] ([facility]) [address] [place] [address] Sodium [Moles/Vol] 135 mmol/L Low 136-145 [facility] Comment on above: Performed By: #### 2 4323-8 #### FRANK TYLER ([id number]) [facility] ([facility]) [address] [place] [address] Urea nitrogen [Mass/Vol] 7 mg/dL Normal 6-23 [facility] Comment on above: Performed By: #### 2 4323-8 #### FRANK TYLER ([id number]) [facility] ([facility]) [address] [place] [address] Proteinon 06-07-2023 Protein Qn (U) 46 mg/dL High 5-24 [facility] Comment on above: Performed By: #### 2 7298-9 #### FRANK TYLER ([id number]) [facility] ([facility]) [address] [place] [address] Protein Qn (U)on 06-07-2023 Creatinine (U) [Mass/Vol] 140.8 mg/dL 20.0 - 320.0 mg/dL [facility] Interpretation and review of laboratory results Abnormal [facility] Protein/Creatinine (U) [Mass ratio] 0.33 mg/g High [facility] Creatinine (U) [Mass/Vol] 140.8 mg/dL Normal 20.0-320.0 [facility] Comment on above: Performed By: #### 2 7298-9 #### FRANK TYLER ([id number]) [facility] ([facility]) [address] [place] [address] Protein/Creatinine (U) [Mass ratio] 0.33 mg/mg Creat High 0.00-0.17 [facility] Comment on above: Performed By: #### 2 7298-9 #### FRANK TYLER ([id number]) [facility] ([facility]) [address] [place] [address] Protein, Urine Randomon 01-0 Protein Qn (U) 46 mg/dL High 5 - 24 mg/dL [facility] Urinalysis, reflex to cultur chava 05-11-2023 Urine Reflexed to Culture Not Indicated Normal [facility] Comment on above: Performed By: #### U AR #### [facility] [address] [place] [address] Bilirubin Ql (U) Negative Normal Negative [facility] Comment on above: Performed By: #### U AR #### [facility] [address] [place] [address] Clarity (U) Clear Normal Clear [facility] Comment on above: Performed By: #### U AR #### [facility] [address] [place] [address] Color (U) Yellow Normal Straw/Brooke [facility] Comment on above: Performed By: #### U AR #### [facility] [address] [place] [address] Glucose Ql (U) Negative Normal Negative [facility] Comment on above: Performed By: #### U AR #### [facility] [address] [place] [address] Hemoglobin Ql (U) Negative Normal Negative [facility] Comment on above: Performed By: #### U AR #### [facility] [address] [place] [address] Ketones Ql (U) Negative Normal Negative [facility] Comment on above: Performed By: #### U AR #### [facility] [address] [place] [address] Leukocyte esterase Test strip Ql (U) Trace Normal Negative [facility] Comment on above: Performed By: #### U AR #### [facility] [address] [place] [address] Nitrite Ql (U) Negative Normal Negative [facility] Comment on above: Performed By: #### U AR #### [facility] [address] [place] [address] pH (U) 7.0 [pH] Normal 5.0-9.0 [facility] Comment on above: Performed By: #### U AR #### [facility] [address] [place] [address] Protein Ql (U) Negative Normal Negative [facility] Comment on above: Performed By: #### U AR #### [facility] [address] [place] [address] Specific gravity (U) [Rel density] 1.020 Normal 1.005-1.03 [facility] Comment on above: Performed By: #### U AR #### [facility] [address] [place] [address] Urobilinogen Qn (U) 0.2 {Khoa'U}/dL Normal < 2.0 [facility] Comment on above: Performed By: #### U AR #### [facility] [address] [place] [address] Urine Microscopicon 05-11-20 23 Epithelial cells LM Ql (Urine sed) 0-2 Normal [facility] Comment on above: Performed By: #### U ANTHONY #### [facility] [address] [place] [address] Urine Bacteria RARE Abnormal Negative [facility] Comment on above: Performed By: #### U ANTHONY #### [facility] [address] [place] [address] Urine RBC 0-2 Normal 0-2 [facility] Comment on above: Performed By: #### U ANTHONY #### [facility] [address] [place] [address] Urine WBC 0-2 Normal 0-5 [facility] Comment on above: Performed By: #### U ANTHONY #### [facility] [address] [place] [address] CBC panel Auto (Bld)on 04-19 Erythrocyte distribution width (RBC) [Ratio] 11.7 % Normal 11.5-14.5 [facility] Comment on above: Performed By: #### 5 8410-2 #### JOHN Kim ([id number]) [facility] ([facility]) [address] [place] [address] Hematocrit (Bld) [Volume fraction] 33.0 % Low 36.0-46.0 [facility] Comment on above: Performed By: #### 5 8410-2 #### JOHN Kim ([id number]) [facility] ([facility]) [address] [place] [address] Hemoglobin (Bld) [Mass/Vol] 11.0 g/dL Low 12.0-16.0 [facility] Comment on above: Performed By: #### 5 8410-2 #### JOHN Kim ([id number]) [facility] ([facility]) [address] [place] [address] MCH (RBC) [Entitic mass] 30.3 pg Normal 26.0-34.0 [facility] Comment on above: Performed By: #### 5 8410-2 #### JOHN Kim ([id number]) [facility] ([facility]) [address] [place] [address] MCHC (RBC) [Mass/Vol] 33.3 g/dL Normal 32.0-36.0 [facility] Comment on above: Performed By: #### 5 8410-2 #### JOHN Kim ([id number]) [facility] ([facility]) [address] [place] [address] MCV (RBC) [Entitic vol] 91 fL Normal 80-100 [facility] Comment on above: Performed By: #### 5 8410-2 #### JOHN Kim ([id number]) [facility] ([facility]) [address] [place] [address] Nucleated RBC/100 WBC (Bld) [Ratio] 0.0 /100 WBCs Normal 0.0-0.0 [facility] Comment on above: Performed By: #### 5 8410-2 #### JOHN Kim ([id number]) [facility] ([facility]) [address] [place] [address] Platelets (Bld) [#/Vol] 374 x10*3/uL Normal 150-450 [facility] Comment on above: Performed By: #### 5 8410-2 #### JOHN Kim ([id number]) [facility] ([facility]) [address] [place] [address] RBC (Bld) [#/Vol] 3.63 x10*6/uL Low 4.00-5.20 [facility] Comment on above: Performed By: #### 5 8410-2 #### JOHN Kim ([id number]) [facility] ([facility]) [address] [place] [address] WBC (Bld) [#/Vol] 12.3 x10*3/uL High 4.4-11.3 [facility] Comment on above: Performed By: #### 5 8410-2 #### JOHN Kim ([id number]) [facility] ([facility]) [address] [place] [address] Glucose^1H post 50 g glucose Caity 04-19-2023 Glucose 1 Hr post 50 g glucose PO [Mass/Vol] 90 mg/dL Normal <135 [facility] Comment on above: Order Comment: Diagn ostic value with glucose loading dose of 50 g. Reference values from [place] [employer]. Diabetes Care 2015;38(Suppl.1):S8-S16 Performed By: #### 1 504-0 #### JOHN GAGNONKEZIA Kim ([id number]) [facility] ([facility]) [address] [place] [address] REFLEX ADDED, ANEMIA PANELon 04-19-2023 REFLEX ADDED, ANEMIA PANEL Normal [facility] Comment on above: Result Comment: No r eflex Performed By: #### A PRFX #### ÁNGEL Morton ([id number]) [facility] ([facility]) [address] [place] [address] Cult, Urineon 01-13-2023 Bacteria identified Cx Nom (U) MG-OBGYN Nurse [facility] DO Work Phone: GC + Chlamydia By Amplified Detectionon 01-13-2023 C. trachomatis rRNA ISAK+probe Ql (Unsp spec) Negative Negative -OBGYN Nurse [facility] DO Work Phone: Comment on above: The APTIMA Combo 2 a ssay is FDA-approved for Chlamydia trachomatis and Neisseria gonorrhoeae testing on female endocervical and vaginal swabs, ThinPrep liquid pap samples, male urine samples and urethral swabs. Performance characteristics for Chlamydia trachomatis and Neisseria gonorrhoeae testing on specific zno-KZR-ucintjke sample types (female urine samples) have been validated by [facility]. This laboratory is certified by CLIA to perform high complexity testing. Samples from all other sites are not validated for this method. N. gonorrhoeae rRNA ISAK+probe Ql (Unsp spec) Negative Negative MG-OBGY Nurse [facility] DO Work Phone: Comment on above: SOURCE: Urine The AP TIN Combo 2 assay is FDA-approved for Chlamydia trachomatis and Neisseria gonorrhoeae testing on female endocervical and vaginal swabs, ThinPrep liquid pap samples, male urine samples and urethral swabs. Performance characteristics for Chlamydia trachomatis and Neisseria gonorrhoeae testing on specific tlg-TGT-jodiugxp sample types (female urine samples) have been validated by [facility]. This laboratory is certified by CLIA to perform high complexity testing. Samples from all other sites are not validated for this method. HIV 1/2 ANTIGEN/ANTIBODY SCR EEN WITH REFLEX TO CONFIRMATIONon 01-13-2023 HIV 1+2 Ab Qn (S) Non-Reactive See Below [facility] DO Work Phone: Comment on above: SOURCE: Reference Ra nge: NONREACTIVE HIV Ag/Ab screen is performed using the Siemens AtellAce Metrix HIV Ag/Ab Combo assay which detects the presence of HIV p24 antigen as well as antibodies to HIV-1 (Group M and O) and HIV-2..No laboratory evidence of HIV infection. If acute HIV infection is suspected, consider testing for HIV RNA by PCR (viral load). Hepatitis C Antibody Teston 01-13-2023 Hepatitis C Antibody Test Non-Reactive See Below [facility] DO Work Phone: Comment on above: SOURCE: [...] 01-13-2023 HCG ( test) Ql (U) Positive [facility] [id number] M DO Work Phone: Laboratory - Blood bankon ABO group Nom (Bld) A [facility] DO Work Phone: Blood group antibody screen Ql Negative [facility] DO Work Phone: Rh immune globulin screen (Bld) [Interp] Positive [facility] DO Work Phone: Laboratory - Hematology and Cell countson 01-13-2023 Erythrocyte distribution width (RBC) [Ratio] 13.4 % See Below [facility] DO Work Phone: Comment on above: Reference Range: 11. 5 - 14.5 Hematocrit (Bld) [Volume fraction] 42.7 % See Below [facility] DO Work Phone: Comment on above: Reference Range: 36. 0 - 46.0 Hemoglobin (Bld) [Mass/Vol] 14.0 g/dL See Below [facility] DO Work Phone: Comment on above: Reference Range: 12. 0 - 16.0 MCHC (RBC) [Mass/Vol] 32.8 g/dL See Below [facility] DO Work Phone: Comment on above: Reference Range: 32. 0 - 36.0 MCV (RBC) [Entitic vol] 90 fL 80 - 100 [facility] DO Work Phone: Platelets (Bld) [#/Vol] 408 10*3/uL 150 - 450 [facility] DO Work Phone: RBC (Bld) [#/Vol] 4.76 {x10E12/L} See Below [facility] DO Work Phone: Comment on above: Reference Range: 4.0 0 - 5.20 WBC (Bld) [#/Vol] 9.4 10*3/uL 4.4 - 11.3 [facility] DO Work Phone: No Panel Informationon 01-13 NONE [facility] DO Work Phone: Rubella IgG Antibodyon 01-13 Rubella virus IgG IA Ql Positive [facility] DO Work Phone: Comment on above: INTERPRETATIVE [...] alteredresults in serological assays. SYPHILIS SCREENING WITH [facility] 01-13-2023 T. pallidum IgG+IgM IA Ql (S) Non-Reactive See Below [facility] DO Work Phone: Comment on above: Reference Range: NON REACTIVENo serologic evidence of syphilis infection.If recent exposure is suspected, repeat syphilis testingis recommended in 2 to 4 weeks. Tobacco Screening.on 023 Adult depression screening assessment No [facility] [address] M DO Work Phone: Fall risk assessment a) No falls within the last year [facility] [address] M DO Work Phone: Last menstrual period start date 06Oct2022 [facility] [address] M DO Work Phone: Tobacco use status CP b) No [facility] [address] M DO Work Phone: US OB LESS THAN 14 WEEKS SIN GLE OR FIRST GESTATIONon 12-19-2022 US OB LESS THAN 14 WEEKS SINGLE OR FIRST GESTATION EXAMINATION: OBSTETRIC ULTRASOUND 12/19/2022 TECHNIQUE: Transabdominal sonographic evaluation of the pelvis was performed. COMPARISON: None. HISTORY: ORDERING SYSTEM PROVIDED HISTORY: Early stage of TECHNOLOGIST PROVIDED HISTORY: This procedure can be scheduled via ROVOP. Access your [employer]OVOP account by visiting [employer]. Reason for exam:->Establish viability, confirm dating Reason [...] Martin Trinh MD 12/19/22 Final result Normal [facility] Single live intraute rine with an estimated gestational age of 10 weeks and 4 days. [facility] EXAMINATION: OBSTETRIC ULTRASOUND 12/19/2022 TECHNIQUE: Transabdominal sonographic evaluation of the pelvis was performed. COMPARISON: None. HISTORY: ORDERING SYSTEM PROVIDED HISTORY: Early stage of TECHNOLOGIST PROVIDED HISTORY: This procedure can be scheduled via [employer]OVOP. Access your [employer] account by visiting [employer]. Reason for exam:->Establish viability, confirm dating Reason [...] free fluid is noted in the pelvis. [facility] Martin Trinh MD - 12/19/2022 EXAMINATION: OBSTETRIC ULTRASOUND 12/19/2022 TECHNIQUE: Transabdominal sonographic evaluation of the pelvis was performed. COMPARISON: None. HISTORY: ORDERING SYSTEM PROVIDED HISTORY: Early stage of TECHNOLOGIST PROVIDED HISTORY: This procedure can be scheduled via [employer]OV[employer]. Access your [employer] account by visiting [employer]. Reason for exam:->Establish viability, confirm dating Reason [...] age of 10 weeks and 4 days. [facility] Radiology Study observation (narrative) [facility] US OB LESS THAN 14 WEEKS SIN GLE OR FIRST GESTATIONOrdered By: Martin Trinh on 12-19-2022 [facility] Work Phone: C.trachomatis N.gonorrhoeae DNA ,Urineon 12-13-2022 Chlamydia trachomatis DNA, Urine Positive Abnormal Negative [facility] Neisseria gonorrhoeae DNA, Urine Negative Normal Negative [facility] Pain Mgt Drug Panel, Hi Res, Uron 12-12-2022 6-acetylmorphine (cutoff 20 ng/mL) Not detected Normal [facility] 7-Aminoclonazepam (cutoff 40 ng/mL) Not detected Normal [facility] Gjveq-RF-Nzysbapnvo (cutoff 20 ng/mL) Not detected Normal [facility] Ahbgv-IV-Irwdiskcg (cutoff 20 ng/mL) Not detected Normal [facility] Alprazolam (cutoff 40 ng/mL) Not detected Normal [facility] Amphetamine (cutoff 100 ng/mL) Not detected Normal [facility] Barbiturates (cutoff 200 ng/mL) Not detected Normal [facility] Benzoylecgonine Ql (U) Not detected Normal [facility] Buprenorphine (cutoff 5 ng/mL) Not detected Normal [facility] Carisoprodol (cutoff 100 ng/mL) Not detected Normal [facility] Comment on above: Result Comment: The carisoprodol immunoassay has cross- reactivity to carisoprodol and meprobamate. Clonazepam (cutoff 20 ng/mL) Not detected Normal [facility] Codeine (cutoff 40 ng/mL) Not detected Normal [facility] Creatinine, Urine 197.1 mg/dL Normal 20.0-400.0 [facility] Diazepam (cutoff 50 ng/mL) Not detected Normal [facility] EER Pain Mgt Drug Panel High Res/EMIT U See Note Normal [facility] Comment on above: Result Comment: Auth orized individuals can access the [employer] Enhanced Report using the following link: [email or web address] Performed By: [facility] [address] [place] [address] Loss Control Manager: Ernesto Pelayo MD, PhD Ethyl Glucuronide (cutoff 500 ng/mL) Not detected Normal [facility] Fentanyl (cutoff 2 ng/mL) Not detected Normal [facility] Gabapentin (cutoff 100 ng/mL) Not detected Normal [facility] Hydrocodone (cutoff 40 ng/mL) Not detected Normal [facility] Hydromorphone (cutoff 40 ng/mL) Not detected Normal [facility] Lorazepam (cutoff 60 ng/mL) Not detected Normal [facility] Marijuana Metabolite (cutoff 20 ng/mL) Not detected Normal [facility] Comment on above: Result Comment: INTE RPRETIVE INFORMATION: Marijuana Metabolite The cutoff for Marijuana Metabolite (immunoassay) was changed from 20 ng/mL to 50 ng/mL, effective October 17, 2022. MDA (cutoff 200 ng/mL) Not detected Normal [facility] MDEA-Shona (cutoff 200 ng/mL) Not detected Normal [facility] MDMA-Ecstasy (cutoff 200 ng/mL) Not detected Normal [facility] Meperidine metabolite (cutoff 50 ng/mL) Not detected Normal [facility] Methadone Ql (U) Not detected Normal [facility] Methamphetamine (cutoff 400 ng/mL) Not detected Normal [facility] Methylphenidate (cutoff 100 ng/mL) Not detected Normal [facility] Midazolam (cutoff 20 ng/mL) Not detected Normal [facility] Morphine (cutoff 20 ng/mL) Not detected Normal [facility] Naloxone (cutoff 100 ng/mL) Not detected Normal [facility] Norbuprenorphine (cutoff 20 ng/mL) Not detected Normal [facility] Nordiazepam (cutoff 50 ng/mL) Not detected Normal [facility] Norfentanyl (cutoff 2 ng/mL) Not detected Normal [facility] Norhydrocodone (cutoff 100 ng/mL) Not detected Normal [facility] Noroxycodone (cutoff 100 ng/mL) Not detected Normal [facility] Noroxymorphone (cutoff 100 ng/mL) Not detected Normal [facility] Oxazepam (cutoff 50 ng/mL) Not detected Normal [facility] Oxycodone (cutoff 40 ng/mL) Not detected Normal [facility] Oxymorphone (cutoff 40 ng/mL) Not detected Normal [facility] Pain Management Drug Panel See Below Normal [facility] Comment on above: Result Comment: Meth odology: [...] developed and its performance characteristics determined by [facility]. It has not been cleared or approved by the US Food and Drug Administration. This test was performed in a CLIA certified laboratory and is intended for clinical purposes. PCP (cutoff 25 ng/mL) Not detected Normal [facility] Phentermine (cutoff 100 ng/mL) Not detected Normal [facility] Pregabalin (cutoff 100 ng/mL) Not detected Normal [facility] Tapentadol (cutoff 100 ng/mL) Not detected Normal [facility] Ljkwyyfeop-f-Qvtb (cutoff 200 ng/mL) Not detected Normal [facility] Temazepam (cutoff 50 ng/mL) Not detected Normal [facility] Tramadol (cutoff 200 ng/mL) Not detected Normal [facility] Zolpidem (cutoff 20 ng/mL) Not detected Normal [facility] Trichomonas vaginalis by AMD on 12-11-2022 T. vaginalis Amplified Negative Normal Negative [facility] Comment on above: Result Comment: This test was developed and its performance characteristics determined by [facility]. It has not been cleared or approved [...] or for other forensic purposes. Performed By: [facility] [address] [place] [address] Loss Control Manager: Ernesto Pelayo MD, PhD Performed By: #### [id number] #### [facility] [address] [place] [id number] Culture, Urineon 12-08-2022 Culture, Urine ORDER#: [id number] ORDERED BY: HINA WINTER SOURCE: Urine Clean Catch COLLECTED: 12/08/22 20:09 ANTIBIOTICS AT ANIBAL.: RECEIVED : 12/08/22 20:29 Culture, Urine FINAL 12/10/22 14:11 Cult,Urine: NO SIGNIFICANT [place]TH [place] [address] Normal [facility] Comment on above: Performed By: #### C XURN #### [facility] [address] [place] [address] Trichomonas vaginalis by AMD on 12-08-2022 Specimen source Nom (Unsp spec) Urine Normal [facility] Comment on above: Performed By: #### [id number] #### [facility] [address] [place] [id number] Culture, Throaton 03-09-2022 Culture, Throat ORDER#: [id number] ORDERED BY: CARLA LIZARRAGA SOURCE: Throat Throat COLLECTED: 03/09/22 20:01 ANTIBIOTICS AT ANIBAL.: RECEIVED : 03/09/22 20:14 Culture, Throat FINAL 03/12/22 14:36 Cult,Throat: ORAL HARRIS PRESENT Performed at [facility] [address] [place] [id number] ([phone] Strep pyogenes (Beta Strep Group A) MODERATE GROWTH Normal [facility] Comment on above: Performed By: #### C XTHR #### [facility] [address] [place] [id number] HCG, Quantitative, Ordered By: Hina Winter on 10-19-2020 hCG Quant 8172 mIU/mL [facility] Phone: Comment on above: Gestational Age Expe cted HCG values (mIU/ml) 3 weeks 5-72 4 weeks 708 5 weeks 217-8,245 6 weeks 152-32,177 8 weeks 31,366-149,094 12 weeks 27,107-201,615 16 weeks 8,904-55,332 18 weeks 9,649-55,271 [facility] Phone: HCG Quanton 10-18-2020 HCG Quant 06969.0 mIU/mL Normal [facility] Comment on above: Result Comment: Gest ational Age Expected HCG values (mIU/ml) 3 weeks -72 4 weeks 708 5 weeks 217-8,245 6 weeks 152-32,177 8 weeks 31,366-149,094 12 weeks 27,107-201,615 16 weeks 8,904-55,332 18 weeks 9,649-55,271 Performed By: #### H CGQ #### [facility] [address] [place] [id number] US OB LESS THAN 14 WEEKS SIN [...] [place] MD 10/18/20 Final result Normal [facility] US OB TRANSVAGINALon 05-16-2 021 US OB [...] [place] MD 10/18/20 Final result Normal [facility] Urinalysis, reflex to cultur chava 10-18-2020 Urine Reflexed to Culture Not Indicated Normal [facility] Comment on above: Performed By: #### U AR #### [facility] [address] [place] [address] Bilirubin Ql (U) Negative Normal Negative [facility] Comment on above: Performed By: #### U AR #### [facility] [address] [place] [address] Clarity (U) Clear Normal Clear [facility] Comment on above: Performed By: #### U AR #### [facility] [address] [place] [address] Color (U) DARK YELLOW Abnormal Straw/Brooke [facility] Comment on above: Performed By: #### U AR #### [facility] [address] [place] [address] Glucose Ql (U) Negative Normal Negative [facility] Comment on above: Performed By: #### U AR #### [facility] [address] [place] [address] Hemoglobin Ql (U) LARGE Abnormal Negative [facility] Comment on above: Performed By: #### U AR #### [facility] [address] [place] [address] Ketones Ql (U) TRACE Abnormal Negative [facility] Comment on above: Performed By: #### U AR #### [facility] [address] [place] [address] Leukocyte esterase Test strip Ql (U) TRACE Abnormal Negative [facility] Comment on above: Performed By: #### U AR #### [facility] [address] [place] [address] Nitrite Ql (U) Negative Normal Negative [facility] Comment on above: Performed By: #### U AR #### [facility] [address] [place] [address] pH (U) 7.0 [pH] Normal 5.0-9.0 [facility] Comment on above: Performed By: #### U AR #### [facility] [address] [place] [address] Protein Ql (U) 30 mg/dL Abnormal Negative [facility] Comment on above: Performed By: #### U AR #### [facility] [address] [place] [address] Specific gravity (U) [Rel density] 1.030 Normal 1.005-1.03 [facility] Comment on above: Performed By: #### U AR #### [facility] [address] [place] [address] Urobilinogen Qn (U) 1.0 {Khoa'U}/dL Normal < 2.0 [facility] Comment on above: Performed By: #### U AR #### [facility] [address] [place] [address] Urine Microscopicon 10-19-19 21 Urine Bacteria FEW Abnormal Negative [facility] Comment on above: Performed By: #### U ANTHONY #### [facility] [address] [place] [address] Urine Epithelial Cells Auto 6-10 Normal 0-5 [facility] Comment on above: Performed By: #### U ANTHONY #### [facility] [address] [place] [address] Urine Hyaline Casts Auto 5-10 Normal 0-5 [facility] Comment on above: Performed By: #### U ANTHONY #### [facility] [address] [place] [address] Urine RBC Auto 20-50 Abnormal 0-5 [facility] Comment on above: Performed By: #### U ANTHONY #### [facility] [address] [place] [address] Urine WBC Auto 6-9 Abnormal 0-5 [facility] Comment on above: Performed By: #### U ANTHONY #### [facility] [address] [place] [address] HCG, Quantitative, Ordered By: Alexandre Casillas on 10-17-2020 hCG Quant 65741 mIU/mL [facility] Phone: Comment on above: Gestational Age Exp ected HCG values (mIU/ml) 3 weeks 5-72 4 weeks 10-708 5 weeks 217-8,245 6 weeks 152-32,177 8 weeks 31,366-149,094 12 weeks 27,107-201,615 16 weeks 8,904-55,332 18 weeks 9,649-55,271 [employer] Phone: Microscopic UrinalysisOrdere d By: Alexandre Casillas on 10-17-2020 Bacteria, UA FEW Abnormal Negative /[employer] Work Phone: Epithelial Cells, UA 6-10 [email or web address] Work Phone: Hyaline Casts, UA 5-10 [facility] Work Phone: RBC, UA 20-50 Abnormal [employer] Phone: WBC, UA 6-9 Abnormal [employer] Phone: No Panel InformationOrdered By: Alexandre Casillas on 10-17-2020 Interpretation and review of laboratory results Abnormal [facility] Work Phone: [facility] [employer] Work Phone: POCT urine pregnancyOrdered By: Alexandre Casillas on 10-17-2020 Interpretation and review of laboratory results Normal [facility] [employer] Work Phone: Preg Test, Ur Positive [facility] Work Phone: QC OK? yes [facility] [employer] Work Phone: [facility] [employer] Work Phone: Urine Reflex to CultureOrder ed By: Alexandre Casillas on 10-17-2020 Bilirubin Urine Negative [facility] Work Phone: Blood, Urine LARGE Abnormal Negative [facility] [employer] Work Phone: Clarity, UA Clear Clear [facility] [employer] Work Phone: Color, UA DARK YELLOW Abnormal Straw/Yellow [facility] Work Phone: Glucose, Ur Negative Negative mg/dL [facility] [employer] Work Phone: Ketones Ql (U) TRACE Abnormal Negative mg/dL [facility] [employer] Work Phone: Leukocyte esterase Test strip Ql (U) TRACE Abnormal Negative [facility] [employer] Work Phone: Nitrite, Urine Negative Negative [facility] Work Phone: pH, UA 7.0 [facility] [employer] Work Phone: Protein (U) [Mass/Vol] 30 mg/dL Abnormal Negative [facility] [employer] Work Phone: Specific [place], UA 1.030 [facility] [employer] Work Phone: Urine Reflex to Culture Not Indicated [facility] [employer] Work Phone: Urobilinogen, Urine 1.0 <2.0 E.U./dL [facility] [employer] Work Phone: Vital Signs Date Time Vital Sign Value Performing Clinician Facility 11-14-2024 11:25-0400 Body mass index (BMI) [Ratio] 28.69 kg/m2 Jennifer De La Torre MD Work Phone: [facility] 11-14-2024 11:25-0400 Body weight 78.2 kg Jennifer De La Torre MD Work Phone: [facility] 11-14-2024 11:25-0400 Diastolic blood pressure 72 mm[Hg] Jennifer De La Torre MD Work Phone: [facility] 11-14-2024 11:25-0400 Systolic blood pressure 110 mm[Hg] Jennifer De La Torre MD Work Phone: [facility] 11-12-2024 18:30-0400 Diastolic blood pressure 78 mm[Hg] Alycia Schwochow MANAGER R D-CNM Work Phone: [facility] 11-12-2024 18:30-0400 Heart rate 84 /min Alycia Schwochow MANAGER R D[employer]CNM Work Phone: [facility] 11-12-2024 18:30-0400 Respiratory rate 16 /min Alycia Schwochow MANAGER R D[employer]CNM Work Phone: [facility] 11-12-2024 18:30-0400 SaO2% (BldA) [Mass fraction] 97 % Alycia Schwochow MANAGER R D[employer]CNM Work Phone: [facility] 11-12-2024 18:30-0400 Systolic blood pressure 126 mm[Hg] Alycia Schwochow MANAGER R D[employer]CNM Work Phone: [facility] 11-12-2024 16:01-0400 Body height 165.1 cm Alycia Schwochow MANAGER R D[employer]CNM Work Phone: [facility] 11-12-2024 16:01-0400 Body mass index (BMI) [Ratio] 27.96 kg/m2 Alycia Schwochow MANAGER R D[employer]CNM Work Phone: [facility] 11-12-2024 16:01-0400 Body temperature 98.4 [degF] Alycia Vicente MANAGER R D[employer]CNM Work Phone: [facility] 11-12-2024 16:01-0400 Body weight 76.2 kg Alycia Vicente MANAGER R D[employer]CNM Work Phone: [facility] 11-04-2024 15:07-0400 Body mass index (BMI) [Ratio] 28.06 kg/m2 Jennifer De La Torre MD Work Phone: [facility] 11-04-2024 15:07-0400 Body weight 76.48 kg Jennifer De La Torre MD Work Phone: [facility] 11-04-2024 15:07-0400 Diastolic blood pressure 64 mm[Hg] Jennifer De La Torre MD Work Phone: [facility] 11-04-2024 15:07-0400 Systolic blood pressure 102 mm[Hg] Jennifer De La Torre MD Work Phone: [facility] 10-21-2024 15:30-0400 Body mass index (BMI) [Ratio] 27.62 kg/m2 Jennifer De La Torre MD Work Phone: [facility] 10-21-2024 15:30-0400 Body weight 75.3 kg Jennifer De La Torre MD Work Phone: [facility] 10-21-2024 15:30-0400 Diastolic blood pressure 60 mm[Hg] Jennifer De La Torre MD Work Phone: [facility] 10-21-2024 15:30-0400 Systolic blood pressure 100 mm[Hg] Jennifer De La Torre MD Work Phone: [facility] 10-10-2024 10:52-0400 Body mass index (BMI) [Ratio] 27.12 kg/m2 Naren Bullard MD Work Phone: [facility] 10-10-2024 10:52-0400 Body weight 73.94 kg Naren Bullard MD Work Phone: [facility] 10-10-2024 10:52-0400 Diastolic blood pressure 58 mm[Hg] Naren Bullard MD Work Phone: [facility] 10-10-2024 10:52-0400 Heart rate 102 /min Naren Bullard MD Work Phone: [facility] 10-10-2024 10:52-0400 SaO2% (BldA) [Mass fraction] 97 % Naren Bullard MD Work Phone: [facility] 10-10-2024 10:52-0400 Systolic blood pressure 100 mm[Hg] Naren Bullard MD Work Phone: [facility] 10-06-2024 19:53-0400 Diastolic blood pressure 95 mm[Hg] Jose Lemjose elias DO Work Phone: [facility] 10-06-2024 19:53-0400 Heart rate 97 /min Jose Lemjose elias DO Work Phone: [facility] 10-06-2024 19:53-0400 Respiratory rate 18 /min Jose Lemjose elias DO Work Phone: [facility] 10-06-2024 19:53-0400 SaO2% (BldA) [Mass fraction] 94 % Jose Lemasters DO Work Phone: [facility] 10-06-2024 19:53-0400 Systolic blood pressure 149 mm[Hg] Jose Lemasters DO Work Phone: [facility] 10-06-2024 16:52-0400 Body height 165.1 cm Jose Lemasters DO Work Phone: [facility] 10-06-2024 16:52-0400 Body mass index (BMI) [Ratio] 27.29 kg/m2 Jose Lemasters DO Work Phone: [facility] 10-06-2024 16:52-0400 Body temperature 98.01 [degF] Jose Tr DO Work Phone: [facility] 10-06-2024 16:52-0400 Body weight 74.39 kg Jose Lemasters DO Work Phone: [facility] 09-23-2024 15:29-0400 Body mass index (BMI) [Ratio] 27.29 kg/m2 Tyrell Spencer MD Work Phone: [facility] 09-23-2024 15:29-0400 Body weight 74.39 kg Tyrell Spencer MD Work Phone: [facility] 09-23-2024 15:29-0400 Diastolic blood pressure 74 mm[Hg] Tyrell Spencer MD Work Phone: [facility] 09-23-2024 15:29-0400 Systolic blood pressure 112 mm[Hg] Tyrell Spencer MD Work Phone: [facility] 09-09-2024 14:31-0400 Body mass index (BMI) [Ratio] 27.29 kg/m2 Jennifer De La Torre MD Work Phone: [facility] 09-09-2024 14:31-0400 Body weight 74.39 kg Jennifer De La Torre MD Work Phone: [facility] 09-09-2024 14:31-0400 Diastolic blood pressure 70 mm[Hg] Jennifer De La Torre MD Work Phone: [facility] 09-09-2024 14:31-0400 Systolic blood pressure 110 mm[Hg] Jennifer De La Torre MD Work Phone: [facility] 08-12-2024 15:05-0400 Body mass index (BMI) [Ratio] 26.13 kg/m2 Tyrell Spencer MD Work Phone: [facility] 08-12-2024 15:05-0400 Body weight 71.22 kg Tyrell Spencer MD Work Phone: [facility] 08-12-2024 15:05-0400 Diastolic blood pressure 70 mm[Hg] Tyrell Spencer MD Work Phone: [facility] 08-12-2024 15:05-0400 Systolic blood pressure 118 mm[Hg] Tyrell Spencer MD Work Phone: [facility] 07-16-2024 14:15-0500 Body mass index (BMI) [Ratio] 25.63 kg/m2 Naren Bullard MD Work Phone: [facility] 07-16-2024 14:15-0500 Body weight 69.85 kg Naren Bullard MD Work Phone: [facility] 07-16-2024 14:15-0500 Diastolic blood pressure 64 mm[Hg] aNren Bullard MD Work Phone: [facility] 07-16-2024 14:15-0500 Systolic blood pressure 108 mm[Hg] Naren Bullard MD Work Phone: [facility] 06-10-2024 14:52-0500 Body height 165.1 cm Priscilla Jeffrey MANAGER R D.CASE FOLDER Work Phone: [facility] 06-10-2024 14:52-0500 Body mass index (BMI) [Ratio] 24.99 kg/m2 Priscilla Jeffrey MANAGER R D.CASE FOLDER Work Phone: [facility] 06-10-2024 14:52-0500 Body weight 68.13 kg Priscilla Orland MANAGER R D.CASE FOLDER Work Phone: [facility] 06-10-2024 14:52-0500 Diastolic blood pressure 74 mm[Hg] Priscilla Orland MANAGER R D.CASE FOLDER Work Phone: [facility] 06-10-2024 14:52-0500 Systolic blood pressure 126 mm[Hg] Priscilla Jeffrey MANAGER R D.CASE FOLDER Work Phone: [facility] 06-19-2023 15:45-0500 Body temperature 99.3 [degF] Buck Kahn MD Work Phone: [facility] 06-19-2023 15:45-0500 Diastolic blood pressure 76 mm[Hg] Buck Kahn MD Work Phone: [facility] 06-19-2023 15:45-0500 Heart rate 94 /min Buck Kahn MD Work Phone: [facility] 06-19-2023 15:45-0500 Respiratory rate 18 /min Buck Kahn MD Work Phone: [facility] 06-19-2023 15:45-0500 SaO2% (BldA) [Mass fraction] 96 % Buck Kahn MD Work Phone: [facility] 06-19-2023 15:45-0500 Systolic blood pressure 128 mm[Hg] Buck Kahn MD Work Phone: [facility] 06-15-2023 04:47-0500 Body temperature 37.0 Buck Kahn MD Work Phone: [facility] 06-15-2023 04:46-0500 Body temperature 37.0 Buck Kahn MD Work Phone: [facility] 06-15-2023 04:31-0500 Body temperature 37.0 degrees Celsius BUCK KAHN [facility] Comment on above: Order Comment: PRN per provider discreti on. Performed By: #### 2 [id number] #### FRANK TYLER ([id number]) [facility] ([facility] [address] [place] [address] 06-13-2023 11:51-0500 Body height 167.6 cm Buck Kahn MD Work Phone: [facility] 06-13-2023 11:51-0500 Body mass index (BMI) [Ratio] 31.31 kg/m2 Buck Kahn MD Work Phone: [facility] 06-13-2023 11:51-0500 Body weight 88 kg Buck Kahn MD Work Phone: [facility] 06-08-2023 20:28-0500 Diastolic blood pressure 82 mm[Hg] Diya Jenkins DO Work Phone: [facility] 06-08-2023 20:28-0500 Heart rate 83 /min Diya Jenkins DO Work Phone: 1(934)293-799981 [place] [address] 06-08-2023 20:28-0500 SaO2% (BldA) [Mass fraction] 98 % Diya Jenkins DO Work Phone: 1(108)687-324381 [place] [address] 06-08-2023 20:28-0500 Systolic blood pressure 124 mm[Hg] Diya Jenkins DO Work Phone: 0(914)[phone] [place] [address] 06-07-2023 17:49-0500 Diastolic blood pressure 75 mm[Hg] Bryan Us MD Work Phone: 4(124)848-576781 [place] [address] 06-07-2023 17:49-0500 Heart rate 80 /min Bryan Us MD Work Phone: 3(021)363-759619 [place] [address] 06-07-2023 17:49-0500 Systolic blood pressure 133 mm[Hg] Bryan Us MD Work Phone: 0(442)478-185239 [place] [address] 06-07-2023 16:50-0500 Body mass index (BMI) [Ratio] 30.78 kg/m2 Bryan Us MD Work Phone: [facility] 06-07-2023 16:50-0500 Body temperature 98.6 [degF] Bryan Us MD Work Phone: 8(202)012-057481 [place] [address] 06-07-2023 16:50-0500 Body weight 86.5 kg Bryan Us MD Work Phone: 0(253)923-858881 [place] [address] 06-07-2023 16:48-0500 SaO2% (BldA) [Mass fraction] 97 % Bryan Us MD Work Phone: [facility] 01-13-2023 10:08-0400 Body height 167.64 cm No PCP None [facility] [id number] M DO Work Phone: 01-13-2023 10:08-0400 Body mass index (BMI) [Ratio] 25.2 kg/m2 No PCP None [facility] [id number] M DO Work Phone: 01-13-2023 10:08-0400 Body surface area Derived from formula 1.8 m2 No PCP None [facility] [id number] M DO Work Phone: 01-13-2023 10:08-0400 Body weight 70.82 kg No PCP None [facility] [id number] M DO Work Phone: 01-13-2023 10:08-0400 Diastolic blood pressure 70 mm[Hg] No PCP None [facility] [address] M DO Work Phone: 01-13-2023 10:08-0400 Systolic blood pressure 120 mm[Hg] No PCP None [facility] [id number] M DO Work Phone: 01-13-2023 10:08-0400 75 1 No PCP None [facility] [address] M DO Work Phone: Comment on above: 2-20_SPerc 01-13-2023 10:08-0400 85 1 No PCP None [facility] [id number] M DO Work Phone: Comment on above: 2-20_WPerc 01-13-2023 10:08-0400 80 1 No PCP None [facility] [place] [address] M DO Work Phone: Comment on above: BMIPerc 01-13-2023 10:08-0400 2 1 No PCP None [facility] [address] M DO Work Phone: Comment on above: GRAV 01-13-2023 10:08-0400 0 1 No PCP None [facility] [id number] M DO Work Phone: Comment on above: [facility] [employer] 10-19-2020 00:21-0400 Body temperature 98.2 [degF] Alexandre Casillas MD Work Phone: [facility] Work Phone: 10-19-2020 00:21-0400 Diastolic blood pressure 74 mm[Hg] Alexandre Casillas MD Work Phone: [employer] Work Phone: 10-19-2020 00:21-0400 Heart rate 88 /min Alexandre Casillas MD Work Phone: [employer] Work Phone: 10-19-2020 00:21-0400 Respiratory rate 20 /min Alexandre Casillas MD Work Phone: [employer] Work Phone: 10-19-2020 00:21-0400 SaO2% (BldA) [Mass fraction] 99 % Alexandre Casillas MD Work Phone: [employer] Work Phone: 10-19-2020 00:21-0400 Systolic blood pressure 110 mm[Hg] Alexandre Casillas MD Work Phone: [employer] Work Phone: 10-18-2020 23:37-0400 Body height 167.6 cm Alexandre Casillas MD Work Phone: [employer] Work Phone: 10-18-2020 23:37-0400 Body mass index (BMI) [Ratio] 23.46 kg/m2 Alexandre Casillas MD Work Phone: [employer] Work Phone: 10-18-2020 23:37-0400 Body weight 65.94 kg Alexandre Casillas MD Work Phone: [employer] Work Phone: 10-18-2020 00:00-0400 Diastolic blood pressure 67 mm[Hg] Alexandre Casillas MD Work Phone: [employer] Work Phone: 10-18-2020 00:00-0400 Heart rate 86 /min Alexandre Casillas MD Work Phone: [employer] Work Phone: 10-18-2020 00:00-0400 SaO2% (BldA) [Mass fraction] 98 % Alexandre Casillas MD Work Phone: [employer] Work Phone: 10-18-2020 00:00-0400 Systolic blood pressure 112 mm[Hg] Alexandre Casillas MD Work Phone: [employer] Work Phone: 10-17-2020 22:00-0400 Respiratory rate 20 /min Alexandre Casillas MD Work Phone: [employer] Work Phone: 10-17-2020 21:52-0400 Body height 167.6 cm Alexandre Casillas MD Work Phone: [employer] Work Phone: 10-17-2020 21:52-0400 Body mass index (BMI) [Ratio] 23.4 kg/m2 Alexandre Casillas MD Work Phone: [employer] Work Phone: 10-17-2020 21:52-0400 Body temperature 98.2 [degF] Alexandre Casillas MD Work Phone: [employer] Work Phone: 10-17-2020 21:52-0400 Body weight 65.77 kg Alexandre Casillas MD Work Phone: [employer] Work Phone: Encounters Encounter Date Encounter Type Care Provider Facility Start: 11-18-2024 End: 11-18-2024 ambulatory [facility] Start: 11-18-2024 End: 11-18-2024 Patient encounter procedure [facility] [place] Comment on above: Population Health Na vigation Outreach ( to PCP/OB//) Start: 11-14-2024 End: 11-14-2024 ambulatory JENINFER DE LA TORRE Facility:[facility] Start: 11-14-2024 End: 11-14-2024 Patient encounter procedure Jennifer De La Torre MD Work Phone: OB/Gynecology Comment on above: Supervision of high risk in third trimester (HCC) (Primary Dx); 37 weeks gestation of (HCC); Gallstones Start: 11-12-2024 End: 11-12-2024 Subsequent hospital visit by physician Vivek Ryan [facility] Comment on above: Arrived Start: 11-12-2024 End: 11-12-2024 Emergency department patient visit MITRA [facility] Start: 11-12-2024 End: 11-12-2024 Emergency department patient visit Alycia Vicente MANAGER R D-CNM Work Phone: [facility] Emergency Medicine Comment on above: Rib pain on right si de (Primary Dx); 37 weeks gestation of (HHS-HCC); Calculus of gallbladder without cholecystitis without obstruction Start: 11-08-2024 End: 11-08-2024 Telephone encounter Anayeli Murry MANAGER R D.CNM Work Phone: OB/Gynecology Comment on above: OB pain Start: 11-04-2024 End: 11-04-2024 Patient encounter procedure Jennifer De La Torre MD Work Phone: OB/Gynecology Comment on above: Supervision of high risk in third trimester (HCC) (Primary Dx); 36 weeks gestation of (HCC) Start: 11-04-2024 End: 11-04-2024 ambulatory JENNIFER DE LA TORRE Facility:[facility] Start: 10-21-2024 End: 10-21-2024 Patient encounter procedure Jennifer De La Torre MD Work Phone: OB/Gynecology Comment on above: Supervision of high risk in third trimester (HCC) (Primary Dx); 34 weeks gestation of (HCC); History of pre-eclampsia Start: 10-21-2024 End: 10-21-2024 ambulatory JENNIFER DE LA TORRE Facility:[facility] Start: 10-10-2024 End: 10-10-2024 Patient encounter procedure Naren Bullard MD Work [...] patient visit Jose Damon DO Work Phone: [facility] Emergency [facility] Comment on above: Pneumonia of left lo wer lobe due to infectious organism (Primary Dx) Start: 10-06-2024 End: 10-06-2024 ambulatory Linda Thomason RN NURSE ENDS DOWN CHECKER Comment on above: Shortness of Breath (Back pain//); Start: 10-03-2024 End: 10-03-2024 ambulatory No Primary Care Physician Facility:[facility] Start: 10-03-2024 End: 10-03-2024 Emergency department patient visit No Primary Care Physician Facility:[facility] Start: 09-23-2024 End: 09-23-2024 Patient encounter procedure Tyrell Spencer MD Work Phone: OB/Gynecology Comment on above: 30 weeks gestation o f (HCC) (Primary Dx); Late care (HCC); Supervision of high risk in third trimester (HCC) Start: 09-23-2024 End: 09-23-2024 ambulatory TYRELL SPENCER Facility:[facility] Start: 09-09-2024 End: 09-09-2024 Patient encounter procedure Jennifer De La Torre MD Work Phone: OB/Gynecology Comment on above: Supervision of high risk , antepartum (HCC) (Primary Dx); 28 weeks gestation of (HCC); Need for vaccination Start: 09-09-2024 End: 09-09-2024 ambulatory TYRELL SPENCER Facility:[facility] Start: 09-09-2024 End: 11-09-2024 Follow-up encounter Agnieszka Georges APRN.CASE FOLDER Work Phone: OB/Gynecology Start: 09-06-2024 End: 09-06-2024 ambulatory Priscilla Murphy APRN.CASE FOLDER Work Phone: OB/Gynecology Comment on above: Leg Pain Start: 08-12-2024 End: 08-12-2024 ambulatory TYRELL SPENCER Facility:[facility] Start: 08-12-2024 End: 08-12-2024 Patient encounter procedure Tyrell Spencer MD Work Phone: OB/Gynecology Comment on above: 24 weeks gestation o f (Primary Dx); Screening for diabetes mellitus; Supervision of high risk , antepartum; Need for influenza vaccination Start: 07-30-2024 End: 07-30-2024 ambulatory [facility] Facility:[facility] Start: 07-30-2024 End: 07-30-2024 Patient encounter procedure [employer] [facility] Comment on above: Encounter for anatomic survey (Primary Dx); 22 weeks gestation of Start: 07-18-2024 End: 07-18-2024 Emergency department patient visit No Primary Care Physician Facility:[facility] Start: 07-18-2024 End: 07-18-2024 ambulatory [facility] Facility:[facility] Start: 07-18-2024 End: 07-18-2024 Patient encounter procedure Margo Bullard APRN.CASE FOLDER Work Phone: [facility] Comment on above: Bilateral calf pain (Primary Dx) Start: 07-16-2024 End: 07-16-2024 ambulatory NAREN BULLARD Facility:[facility] Start: 07-16-2024 End: 07-16-2024 Patient encounter procedure Naren Bullard MD Work Phone: OB/Gynecology Comment on above: Supervision of high risk , antepartum (Primary Dx); Late care affecting in second trimester; Short interval between pregnancies complicating , antepartum; Hx of pre-eclampsia in prior , currently ; 20 weeks gestation of Start: 06-10-2024 End: 06-10-2024 ambulatory PRISCILLA MURPHY Facility:[facility] Start: 06-10-2024 End: 06-10-2024 Patient encounter procedure Priscilla Murphy APRN.CASE FOLDER Work Phone: OB/Gynecology Comment on above: 15 weeks gestation o f (Primary Dx); Late care affecting in second trimester; Short interval between pregnancies complicating , antepartum; Hx of pre-eclampsia in prior , currently ; Supervision of high risk , antepartum Start: 10-25-2023 Patient encounter procedure Jose Velazquezjose elias DO Work Phone: [facility] Work Phone: Start: 07-11-2023 End: 07-11-2023 ambulatory [facility] Start: 06-13-2023 End: 06-19-2023 Evaluation and management of inpatient Buck Kahn MD Work Phone: [facility] 5 Comment on above: Preeclampsia, third trimester (Primary Dx); Anemia of mother in , delivered with condition; Encounter for initial prescription of contraceptive pills Start: 06-09-2023 End: 06-09-2023 ambulatory [facility] Start: 06-08-2023 End: 06-08-2023 ambulatory DIYA Regalado [facility] Start: 06-08-2023 End: 06-08-2023 Subsequent hospital visit by physician Diya Jenkins DO Work Phone: [facility] Start: 06-07-2023 End: 06-07-2023 ambulatory ELSA Cabrera [facility] Ambulatory Start: 06-07-2023 End: 06-07-2023 Subsequent hospital visit by physician Bryan Us MD Work Phone: [facility] Comment on above: Proteinuria affectin g in third trimester (Primary Dx); Elevated blood pressure reading in office without diagnosis of hypertension Start: 05-30-2023 End: 05-30-2023 ambulatory [facility] Start: 05-18-[address] [facility] Start: 05-11-2023 End: 05-11-2023 Emergency department patient visit VIDA FRAIRE [facility] Start: 05-02-2023 End: 05-02-2023 ambulatory [facility] Start: 04-19-2023 End: 04-19-2023 ambulatory [facility] Start: 01-14-2023 Chart Update No PCP None [facility] M DO Work Phone: Start: 01-13-2023 Office outpatient ne w 45 minutes No PCP None [facility] [id number] M DO Work Phone: Start: 12-19-2022 End: 12-22-2022 ambulatory CORTNEY Cabrera [facility] Start: 12-19-2022 End: 12-21-2022 Subsequent hospital visit by physician Alcala Ultrasound Room 1 [facility] Ultrasound Comment on above: Early stage of pregn isaac Start: 10-19-2020 End: 10-19-2020 Subsequent hospital visit by physician [facility] Comment on above: Threatened miscarria ge in early Start: 10-19-2020 End: 10-19-2020 Emergency department patient visit ALEXANDRE CASILLAS [facility] Start: 10-18-2020 End: 10-19-2020 Emergency department patient visit Alexandre Casillas MD Work Phone: [facility] ED Comment on above: Vaginal bleeding (Pr imary Dx); Threatened miscarriage Start: 10-17-2020 End: 10-18-2020 Emergency department patient visit CORTNEY Cabrera [facility] [place] Start: 10-17-2020 End: 10-18-2020 Emergency department patient visit Alexandre Casillas MD Work Phone: [facility] ED Comment on above: Vaginal bleeding (Pr imary Dx); Intrauterine Patient encounter status No PCP None [facility] [id number] M DO Work Phone: Procedures Date Procedure [...] after 1st trimest 1 gestation Priscilla Murphy APRN.CASE FOLDER Work Phone: Start: 06-10-2024 Antibody screen JENNIFER KENDALL Comment on above: Order Comment: Speci men Type: BLOOD SPECIMEN Ordering Facility: [facility] Address: [address] [place] [address] Performed By: #### T SPN #### [facility] [place] [id number] [address] [place] [address] [place] Start: 06-19-2023 ADULT [...] 4 wk transabdl 06/05 gestat Hina Winter MANAGER R D - CNM Work Phone: Start: 10-19-2020 Gonadotropin chorion ic quantitative Hina Hassancecy MANAGER R D - CN Work Phone: Start: 10-17-2020 End: [...] or Population) (1 - 1-dose 75+ series) [facility] Start: 08-04-2053 Zoster Vaccines (1 of 2) Zoste r Vaccines (1 of 2) [facility] Start: 09-09-2034 DTaP/Tdap/Td Vaccine s (9 - Td or Tdap) DTaP/Tdap/Td Vaccines (9 - Td or Tdap) [facility] Start: 09-09-2034 Urine microalbumin profile DTaP,Tdap,Td Vaccine (9 - Td or Tdap) [facility] Start: 04-19-2033 DTaP/Tdap/Td Vaccine s (8 - Td or Tdap) DTaP/Tdap/Td Vaccines (8 - Td or Tdap) [facility] Start: 04-19-2033 Urine microalbumin profile DTaP,Tdap,Td Vaccine (8 - Td or Tdap) [facility] Start: 01-24-2026 DTaP/Tdap/Td vaccine (7 - Td or Tdap) DTaP/Tdap/Td vaccine (7 - Td or Tdap) [facility] Start: 08-12-2025 Covid-19 Vaccine (1 - 2024-25 season) Covid-19 Vaccine ( season) [facility] Comment on above: Postponed from 02/03 (Declined at this time) Start: 06-10-2025 GC (Gonorrhea) Scree neelima (18-24) GC (Gonorrhea) Screening (18-24) [facility] Start: 06-10-2025 Screening for Chlamy karla trachomatis Chlamydia Screening (18-24) [facility] Start: 02-03-2025 Influenza vaccination Influenz a Vaccine (Season Ended) [facility] Start: 11-25-2024 End: 11-25-2024 Patient encounter procedure 11/25/2024 3:15 PM EDT Routine Office Visit OB/Gynecology [address] [place] [address] Anayeli Murry APRN.[facility] [address] [place] [place] [address] OB OB/Gynecology Comment on above: OB Start: 11-18-2024 End: 11-18-2024 Patient encounter procedure 11/18/2024 3:10 PM EDT Routine Office Visit OB/Gynecology [address] [place] [address] Tyrell Spencer MD [address] [place] [address] OB OB/Gynecology Comment on above: OB Start: 11-14-2024 End: 11-14-2024 Patient encounter procedure 11/14/2024 11:20 AM EDT Routine Office Visit OB/Gynecology [address] [place] [address] Jennifer De La Torre MD [address] [place] [address] OB OB/Gynecology Comment on above: OB Start: 11-04-2024 End: 11-04-2024 Patient encounter procedure 11/04/2024 3:10 PM EDT Routine Office Visit OB/Gynecology [address] [place] [address] Jennifer De La Torre MD [address] [place] [address] OB OB/Gynecology Comment on above: OB Start: 10-21-2024 End: 10-21-2024 Patient encounter procedure OB/Gynecology Comment on above: NA OB Start: 10-14-2024 End: 10-14-2024 Patient encounter procedure 10/14/2024 2:30 PM EDT Routine Office Visit OB/Gynecology [address] [place] [address] Anayeli Murry APRN.CNM [address] [place] [address] OB OB/Gynecology Comment on above: OB Start: 10-11-2024 End: 10-11-2024 Patient encounter procedure 10/11/2024 8:45 AM EDT Routine Office Visit OB/Gynecology [address] [place] [address] Agnieszka Georges APRN.CASE FOLDER [address] [place] [address] Pneumonia OB/Gynecology Comment on above: Pneumonia Start: 10-10-2024 End: 01-09-2025 CBC panel - Blood by Automated count COMPLETE BLOOD COUNT Lab Routine Anemia complicating , third trimester (HCC) Expected: 10/10/2024, Expires: 01/09/2025 [facility] Work Phone: Comment on above: Expected: 10/10/2024 , Expires: 01/09/2025 Start: 10-10-2024 End: 01-09-2025 Ferritin [Mass/volume] in Serum or Plasma FERRITIN Lab Routine Anemia complicating , third trimester (HCC) Expected: 10/10/2024, Expires: 01/09/2025 [facility] Comment on above: Expected: 10/10/2024 , Expires: 01/09/2025 Start: 10-10-2024 End: 01-09-2025 Iron and Iron binding capacity panel - Serum or Plasma IRON AND TIBC Lab Routine Anemia complicating , third trimester (HCC) Expected: 10/10/2024, Expires: 01/09/2025 [facility] Comment on above: Expected: 10/10/2024 , Expires: 01/09/2025 Start: 10-10-2024 End: 10-10-2024 Patient encounter procedure 10/10/2024 1:30 PM EDT Routine Office Visit OB/Gynecology [address] [place] [address] Jennifer De La Torre MD [address] [place] [address] NA OB/Gynecology Comment on above: NA Start: 09-23-2024 End: 09-23-2024 Patient encounter procedure 09/23/2024 3:40 PM EDT Routine Office Visit OB/Gynecology [address] [place] [address] Tyrell Spencer MD [address] [place] [address] OB OB/Gynecology Comment on above: OB Start: 09-09-2024 End: 09-09-2024 Patient encounter procedure 09/09/2024 2:40 PM EDT Routine Office Visit OB/Gynecology [address] [place] [address] Jennifer De La Torre MD [address] [place] [address] OB Routine OB/Gynecology Comment on above: OB Routine Start: 09-09-2024 End: 09-09-2024 ambulatory [facility] Laboratory Comment on above: Glucose test and Lab s Start: 08-12-2024 End: 08-12-2024 Patient encounter procedure 08/12/2024 3:10 PM EDT Routine Office Visit OB/Gynecology [address] [place] [address] Tyrell Spencer MD [address] [place] [address] OB Routine OB/Gynecology Comment on above: OB Routine Start: 08-12-2024 End: 11-11-2024 ANEMIA REFLEX PANEL ANEMIA REFLEX PANEL Lab Routine 24 weeks gestation of Screening for diabetes mellitus Expected: 08/12/2024, Expires: 11/11/2024 [facility] Comment on above: Expected: 08/12/2024 , Expires: 11/11/2024 Start: 08-12-2024 End: 08-12-2025 GESTATIONAL GLUCOSE SCREEN, 1-HOUR, 50 GRAM, NON-FASTING GESTATIONAL GLUCOSE SCREEN, 1-HOUR, 50 GRAM, NON-FASTING Lab Routine 24 weeks gestation of Screening for diabetes mellitus Expected: 08/12/2024, Expires: 08/12/2025 [facility] Work Phone: Comment on above: Expected: 08/12/2024 , Expires: 08/12/2025 Start: 08-12-2024 End: 08-12-2025 SYPHILIS TREPONEMAL W/REFLEX SYPHILIS TREPONEMAL W/REFLEX Lab Routine 24 weeks gestation of Screening for diabetes mellitus Expected: 08/12/2024, Expires: 08/12/2025 [facility] Comment on above: Expected: 08/12/2024 , Expires: 08/12/2025 Start: 08-04-2024 Screening for malign ant neoplasm of cervix [facility] Start: 07-30-2024 End: 07-30-2024 Patient encounter procedure 07/30/2024 8:30 AM EST Routine Office Visit Maternal Medicine [address] [place] [address] 15 weeks gestation of [Z3A.15] Maternal Medicine Comment on above: 15 weeks gestation o f [Z3A.15] Start: 07-16-2024 End: 07-16-2024 Patient encounter procedure 07/16/2024 2:20 PM EST Routine Office Visit OB/Gynecology [address] [place] [address] Naren Bullard MD [address] [place] [address] new Ob 02/26/24 OB/Gynecology Comment on above: new Ob 02/26/24 Start: 07-08-2024 End: 07-08-2024 Patient encounter procedure Maternal Medicine Comment on above: Anatomy Scan OB Routine Start: 06-10-2024 End: 09-09-2024 ANEMIA REFLEX PANEL [facility] Work Phone: Comment on above: Expected: 06/10/2024 , Expires: 09/09/2024 Start: 06-10-2024 End: 09-09-2024 Hemoglobin A1c in Blood [facility] Comment on above: Expected: 06/10/2024 , Expires: 09/09/2024 Start: 06-10-2024 End: 09-09-2024 Hepatitis B virus surface Ag [Presence] in Serum HEPATITIS B SURFACE ANTIGEN Lab Routine 15 weeks gestation of Expected: 06/10/2024, Expires: 09/09/2024 [facility] Comment on above: Expected: 06/10/2024 , Expires: 09/09/2024 Start: 06-10-2024 End: 09-09-2024 Hepatitis C virus Ab [Presence] in Serum [facility] Comment on above: Expected: 06/10/2024 , Expires: 09/09/2024 Start: 06-10-2024 End: 09-09-2024 HIV 1+2 Ab [Presence] in Serum or Plasma by Immunoassay [facility] Comment on above: Expected: 06/10/2024 , Expires: 09/09/2024 Start: 06-10-2024 End: 06-10-2025 OBSTETRIC ULTRASOUND WHI OBSTETRIC ULTRASOUND WHI Anc Imaging Routine 15 weeks gestation of Expected: 06/10/2024, Expires: 06/10/2025 [facility] Comment on above: Expected: 06/10/2024 , Expires: 06/10/2025 Start: 06-10-2024 End: 09-09-2024 RUBELLA IGG ANTIBODY [facility] Comment on above: Expected: 06/10/2024 , Expires: 09/09/2024 Start: 06-10-2024 End: 09-09-2024 SYPHILIS TREPONEMAL W/REFLEX [facility] Comment on above: Expected: 06/10/2024 , Expires: 09/09/2024 Start: 06-10-2024 End: 09-09-2024 TYPE + SCREEN [facility] Comment on above: Expected: 06/10/2024 , Expires: 09/09/2024 Start: 02-04-2024 Covid-19 Vaccine () Covid-19 Vaccine () [facility] Start: 02-04-2024 Influenza vaccination Influenza Vacc ine (#1) [facility] Start: 01-14-2024 Screening for Chlamy karla trachomatis Chlamydia and Gonorrhea Screening [facility] Start: 12-09-2023 Screening for Chlamy karla trachomatis Chlamydia/GC screen [facility] Start: 11-09-2023 Depression Screen Depression Screen [facility] Start: 07-11-2023 End: 07-11-2023 Patient encounter procedure 07/11/2023 9:00 AM EST Routine [address] [address] Alycia Vicente, MANAGER R D-CN [address] Department of [employer] [place] [address] [facility] Start: 07-04-2023 End: 07-04-2023 Patient encounter procedure 07/04/2023 9:40 AM EST Routine [place] [id number] [place] [address] Alycia Vicente, MANAGER R D-CN [address] Department [place] [address] [facility] Start: 06-13-2023 End: 06-13-2023 Patient encounter procedure 06/13/2023 3:00 PM EST Routine [address] [id number] [place] [address] Alycia Vicente, MANAGER R D-CNM [address] [facility] Department [place] [address] [facility] Start: 06-09-2023 End: 06-09-2023 Patient encounter procedure 06/09/2023 8:00 AM EST Routine [facility] [address] [facility] [place] [address] Alycia Vicente, MANAGER R D-CNM [address] Department [place] [address] [facility] Start: 03-14-2023 EPVOB, Provider: Alycia Vicente, Status: Pen, Time: 1:40 PM EPVOB, Provider: Alycia Vicnete, Status: Pen, Time: 1:40 PM [facility] [id number] M DO Work Phone: Start: 02-14-2023 EPVOB, Provider: Vanna Wilder, Status: Pen, Time: 11:20 AM EPVOB, Provider: Vanna Wilder, Status: Pen, Time: 11:20 AM [facility] [id number] M DO Work Phone: Start: 02-03-2023 Influenza vaccination Influenza Vacc ine (#1) [facility] Start: 01-03-2023 Influenza vaccination Flu vaccine (# 1) [facility] Start: 08-04-2021 Anxiety Screening Anxiety Screening [facility] Start: 08-04-2021 Depression Screening Depression Scre ening [facility] Start: 08-04-2021 GC (Gonorrhea) Scree neelima (18-24) GC (Gonorrhea) Screening (18-24) [facility] Start: 08-04-2021 Hepatitis C screening Hepatitis C sc reen [facility] Start: 08-04-2021 HIV screening HIV Screening [facility] Start: 08-04-2021 Screening for Chlamy karla trachomatis Chlamydia Screening (18-24) [facility] Start: 02-03-2021 Influenza vaccination Flu vacc ine (Season Ended) [facility] Phone: Start: 10-22-2020 End: 10-22-2020 Patient encounter procedure 10/22/2020 Office Visit Obstetrics and Gynecology Hina Winter, MANAGER R D - CN [address] [place], [place] [id number] [facility] Start: 2019 Meningococcal (ACWY) vaccine (1 - 2-dose series) Meningococcal (ACWY) vaccine (1 - 2-dose series) [facility] Start: 2019 Meningococcal B Vacc ine (1 of 2 - Standard) Meningococcal B Vaccine (1 of 2 - Standard) [facility] Start: 2019 Meningococcal B Vacc ine: Consider Based On Risk (1 of 2 - Patient Seeks Protection) Meningococcal B Vaccine: Consider Based On Risk (1 of 2 - Patient Seeks Protection) [facility] Start: 2019 Screening for Chlamy karla trachomatis Chlamydia screen [facility] Phone: Start: 08-04-2018 HIV screening HIV screen [facility] Start: 08-04-2018 HPV Vaccine (1 - 3-d ose series) HPV Vaccine (1 - 3-dose series) [facility] Start: 08-04-2018 HPV Vaccines (1 - 3- dose series) HPV Vaccines (1 - 3-dose series) [facility] Start: 08-04-2017 Peds To Adult Transi tion Annual Assessment Peds To Adult Transition Annual Assessment [facility] Start: 2015 COVID-19 Vaccine (1) COVID-19 Vaccin e (1) [facility] Phone: Start: 2015 Peds To Adult Transi tion Initial Discussion Peds To Adult Transition Initial Discussion [facility] Start: 08-04-2014 HPV vaccine (1 - 2-d ose series) HPV vaccine (1 - 2-dose series) [facility] [employer] Start: 08-04-2014 HPV Vaccines (1 - 2- dose series) HPV Vaccines (1 - 2-dose series) [facility] Start: 08-04-2010 DTaP/Tdap/Td vaccine (5 - Tdap) DTaP/Tdap/Td vaccine (5 - Tdap) [facility] Phone: Start: 2007 Hearing Screening (#1) Hearing Scree neelima (#1) [facility] Start: 2007 Measles,Mumps,Rubell a (MMR) vaccine (2 of 2 - Standard series) Measles,Mumps,Rubella (MMR) vaccine (2 of 2 - Standard series) [facility] Phone: Start: 2007 Polio vaccine (4 of 4 - 4-dose series) Polio vaccine (4 of 4 - 4-dose series) [facility] Phone: Start: 2007 Varicella vaccine (2 of 2 - 2-dose childhood series) Varicella vaccine (2 of 2 - 2-dose childhood series) [facility] Phone: Start: 08-04-2006 Well Child Visit (WC V) - Annual Well Child Visit (WCV) - Annual [facility] Start: 08-04-2004 Hepatitis A vaccine (1 of 2 - 2-dose series) Hepatitis A vaccine (1 of 2 - 2-dose series) [facility] Phone: Start: 04-06-2004 Application of denta l fluoride varnish Fluoride Varnish [facility] Start: 02-05-2004 COVID-19 Vaccine (#1) COVID-19 Vacci ne (#1) [facility] Start: 2003 Hearing Screening (#1) Hearing Scree neelima (#1) [facility] Start: 2003 Lipid panel Lipid Panel [facility] Start: 2003 Yearly Adult Physical Yearly Adult P hysical [facility] Bacteria identified in Urine by Culture URINE CULTURE Microbiology Routine 15 weeks gestation of 06/10/2024 3:36 PM [facility] Chlamydia trachomatis+Neisseria gonorrhoeae DNA [Presence] in Unspecified specimen by ISAK with probe detection GONORRHEA/CHLAMYDIA NAAT Lab Routine 15 weeks gestation of 06/10/2024 3:36 PM [facility] ECG 12 lead ECG 12 lead ECG STAT 10/06/2024 7:05 PM EDT [facility] Service Area Work Phone: End: 11-12-2024 ECG 12 Lead [facility] Work Phone: Comment on above: Once for 1 Occurrenc es starting 11/12/2024 until 11/12/2024 Electrocardiogram, 12-lead PRN ACS symptoms Electrocardiogram, 12-lead PRN ACS symptoms ECG Routine As needed until discontinued starting 06/07/2023 [facility] Work Phone: Comment on above: As needed until disc ontinued starting 06/07/2023 Electrocardiogram, 12-lead PRN ACS symptoms Electrocardiogram, 12-lead PRN ACS symptoms ECG Routine As needed until discontinued starting 06/15/2023 [facility] Work Phone: Comment on above: As needed until disc ontinued starting 06/15/2023 Gas panel - Arterial cord blood Blood Gas Cord Arterial Lab Routine As needed (Lab) until discontinued starting 06/18/2023 [facility] Work Phone: Comment on above: As needed (Lab) unti l discontinued starting 06/18/2023 Gas panel - Venous c ord blood Blood Gas Cord Venous Lab Routine As needed (Lab) until discontinued starting 06/18/2023 [facility] Work Phone: Comment on above: As needed (Lab) unti l discontinued starting 06/18/2023 Iiv3 vaccine split v irus 0.5 ml dosage im use INFLUENZA VACCINE, AGE 6MO-64YR, TRIVALENT (AFLURIA, FLULAVAL, FLUVIRIN, FLUZONE) Immunization/Injection Routine Need for influenza vaccination Ordered: 08/12/2024 [facility] Comment on above: Ordered: 08/12/2024 End: 10-17-2020 Insert/Change Meredith Catheter Insert/Change Meredith Catheter Procedure STAT One Time for 1 Occurrences starting 10/17/2020 until 10/17/2020 [facility] Work Phone: Comment on above: One Time for 1 Occur rences starting 10/17/2020 until 10/17/2020 End: 06-07-2023 Nonstress test nonstress test (>= 23 weeks) Procedures Routine Once for 1 Occurrences starting 06/07/2023 until 06/07/2023 [facility] Service Area Work Phone: Comment on above: Once for 1 Occurrenc es starting 06/07/2023 until 06/07/2023 End: 06-14-2023 Prepare RBC: 1 Units Prepare RBC: 1 Units Blood Bank Routine Once for 1 Occurrences starting 06/14/2023 until 06/14/2023 [facility] Area Work Phone: Comment on above: Once for 1 Occurrenc es starting 06/14/2023 until 06/14/2023 End: 11-12-2024 Pulse oximetry, continuous Pulse oximetry, continuous Respiratory Care STAT Continuous until discontinued starting 11/12/2024 [facility] Area Work Phone: Comment on above: Continuous until dis continued starting 11/12/2024 ROUTINE, GR OUP B STREPTOCOCCUS BY PCR ROUTINE, GROUP B STREPTOCOCCUS BY PCR Microbiology Routine 36 weeks gestation of ([facility]) Supervision of high risk in third trimester ([facility]) 11/04/2024 3:23 PM EDT [facility] Work Phone: End: 06-15-[address] [facility] Work Phone: Comment on above: Once (Lab) for 1 Occ urrences starting 06/15/2023 until 06/15/2023, 1 completed End: 10-19-2020 Type and screen Type and screen Blood Bank Routine Threatened miscarriage in early 1 Occurrences starting 10/19/2020 until 10/19/2020 [facility] Work Phone: Comment on above: 1 Occurrences starti ng 10/19/2020 until 10/19/2020 URINE OB DIP B/O URINE OB DIP B/ O Lab Routine 30 weeks gestation of ([facility]) Late care ([facility]) Supervision of high risk in third trimester ([facility]) Ordered: 09/23/2024 [facility] Work Phone: Comment on above: Ordered: 09/23/2024 End: 10-17-2020 US OB LESS THAN 14 WEEKS SINGLE OR FIRST GESTATION US OB LESS THAN 14 WEEKS SINGLE OR FIRST GESTATION Imaging STAT Once for 1 Occurrences starting 10/17/2020 until 10/17/2020 [facility] Work Phone: Comment on above: Once for 1 Occurrenc es starting 10/17/2020 until 10/17/2020 US OB LESS THAN 14 W EEKS SINGLE OR FIRST GESTATION US OB LESS THAN 14 WEEKS SINGLE OR FIRST GESTATION Imaging STAT 10/17/2020 11:41 PM EDT [facility] Work Phone: End: 10-17-2020 US OB TRANSVAGINAL US OB TRANSVAGINAL Imaging STAT Once for 1 Occurrences starting 10/17/2020 until 10/17/2020 [facility] Work Phone: Comment on above: Once for 1 Occurrenc es starting 10/17/2020 until 10/17/2020 US OB TRANSVAGINAL US OB TRANSVA GINAL Imaging STAT 10/17/2020 11:41 PM EDT [facility] Work Phone: Immunizations Immunization Date Immunization Notes Care Provider [facility] 09-09-2024 tetanus toxoid, redu justin diphtheria toxoid, and acellular pertussis vaccine, adsorbed Jennifer De La Torre MD Work Phone: [facility] 06-15-2023 measles, mumps and rubella virus vaccine Buck Kahn MD Work Phone: [facility] Work Phone: 04-19-2023 tetanus toxoid, redu justin diphtheria toxoid, and acellular pertussis vaccine, adsorbed Bryan Us MD Work Phone: [facility] Work Phone: 08-22-2016 meningococcal polysaccharide (groups A, C, Y and W-135) diphtheria toxoid conjugate vaccine (MCV4P); Translations: [Meningo (Menactra)] Fredrick 1 [facility] Comment on above: Series: 01-25-2016 tetanus toxoid, redu justin diphtheria toxoid, and acellular pertussis vaccine, adsorbed; Translations: [Tdap (Adacel)] Fredrick 1 [facility] Comment on above: Series: 11-17-2010 hepatitis A vaccine, pediatric/adolescent dosage, 2 dose schedule Fredrick 1 [facility] 01-14-2009 diphtheria, tetanus toxoids and acellular pertussis vaccine, unspecified formulation Fredrick 1 [facility] 01-14-2009 hepatitis A vaccine, unspecified formulation Fredrick 1 [facility] 01-14-2009 measles, mumps and rubella virus vaccine Fredrick 1 [facility] 01-14-2009 poliovirus vaccine, inactivated Jose Lemasters DO Work Phone: [facility] Work Phone: 01-14-2009 poliovirus vaccine, unspecified formulation Fredrick 1 [facility] 01-14-2009 varicella virus vaccine Fredrick 1 [facility] Work Phone: 11-04-2004 diphtheria, tetanus toxoids and acellular pertussis vaccine Alexandre Casillas MD Work Phone: [facility] Work Phone: 11-04-2004 diphtheria, tetanus toxoids and acellular pertussis vaccine, 5 pertussis antigens Fredrick 1 [facility] 11-04-2004 haemophilus influenz ae type b vaccine, HbOC conjugate Priscilla Murphy APRN.CNP Work Phone: [facility] 11-04-2004 haemophilus influenz ae type b vaccine, PRP-T conjugate Fredrick 1 [facility] 11-04-2004 Hib, unspecified Alexandre pinto MD Work Phone: [facility] Work Phone: 11-04-2004 pneumococcal conjuga te vaccine, 7 valent Alexandre Casillas MD Work Phone: [facility] Work Phone: 08-03-2004 measles, mumps and rubella virus vaccine Alexandre Casillas MD Work Phone: [facility] Work Phone: 08-03-2004 varicella virus vaccine Ruddy Casillas MD Work Phone: [facility] Work Phone: 02-17-2004 diphtheria, tetanus toxoids and acellular pertussis vaccine Alexandre Casillas MD Work Phone: [facility] Work Phone: 02-17-2004 diphtheria, tetanus toxoids and acellular pertussis vaccine, unspecified formulation Fredrick 1 [facility] 02-17-2004 haemophilus influenz ae type b vaccine, conjugate unspecified formulation Fredrick 1 [facility] 02-17-2004 haemophilus influenz ae type b vaccine, HbOC conjugate Priscilla Murphy APRN.[facility] Work Phone: [facility] 02-17-2004 hepatitis B vaccine, adult dosage Fredrick 1 [facility] 02-17-2004 hepatitis B vaccine, pediatric or pediatric/adolescent dosage Fredrick 1 [facility] 02-17-2004 hepatitis B vaccine, unspecified formulation Alexandre Casillas MD Work Phone: [facility] Work Phone: 02-17-2004 Hib, unspecified Alexandre pinto MD Work Phone: [facility] Work Phone: 02-17-2004 pneumococcal conjuga te vaccine, 7 valent Alexandre Casillas MD Work Phone: [facility] Work Phone: 02-17-2004 poliovirus vaccine, inactivated Alexandre Casillas MD Work Phone: [facility] Work Phone: 02-17-2004 poliovirus vaccine, unspecified formulation Fredrick 1 [facility] 2003 diphtheria, tetanus toxoids and acellular pertussis vaccine Alexandre Casillas MD Work Phone: [facility] Work Phone: 2003 diphtheria, tetanus toxoids and acellular pertussis vaccine, unspecified formulation Fredrick 1 [facility] 2003 haemophilus influenz ae type b vaccine, conjugate unspecified formulation Fredrick 1 [facility] 2003 haemophilus influenz ae type b vaccine, HbOC conjugate Priscilla Jeffrey MANAGER R D.CASE FOLDER Work Phone: [facility] 2003 Hib, unspecified Alexandre pinto MD Work Phone: [facility] Work Phone: 2003 pneumococcal conjuga te vaccine, 7 valent Alexandre Casillas MD Work Phone: [facility] Work Phone: 2003 poliovirus vaccine, inactivated Alexandre Casillas MD Work Phone: [facility] Work Phone: 2003 poliovirus vaccine, unspecified formulation Fredrick 1 [facility] 2003 diphtheria, tetanus toxoids and acellular pertussis vaccine Alexandre Casillas MD Work Phone: [facility] Work Phone: 2003 diphtheria, tetanus toxoids and acellular pertussis vaccine, unspecified formulation Fredrick 1 [facility] 2003 haemophilus influenz ae type b vaccine, conjugate unspecified formulation Fredrick 1 [facility] 2003 haemophilus influenz ae type b vaccine, HbOC conjugate Priscilla Orland MANAGER R D.CASE FOLDER Work Phone: [facility] 2003 hepatitis B vaccine, adult dosage Fredrick 1 [facility] 2003 hepatitis B vaccine, pediatric or pediatric/adolescent dosage Fredrick 1 [facility] 2003 hepatitis B vaccine, unspecified formulation Alexandre Casillas MD Work Phone: [facility] Work Phone: 2003 Hib, unspecified Alexandre pinto MD Work Phone: [facility] [employer] Work Phone: 2003 pneumococcal conjuga te vaccine, 7 valent Alexandre Casillas MD Work Phone: [facility] [employer] Work Phone: 2003 poliovirus vaccine, inactivated Alexandre Casillas MD Work Phone: [facility] Work Phone: 2003 poliovirus vaccine, unspecified formulation Fredrick 1 [facility] 2003 hepatitis B vaccine, adult dosage Fredrick 1 [facility] 2003 hepatitis B vaccine, pediatric or pediatric/adolescent dosage Fredrick 1 [facility] 2003 hepatitis B vaccine, unspecified formulation Alexandre Casillas MD Work Phone: [facility] [employer] Work Phone: diphtheria, tetanus toxoids and acellular pertussis vaccine No PCP None [facility] [id number] M DO Work Phone: Comment on above: 03 Series: 03 Series: 02/17/04 Series: 11/04/04 Series: 01/14/09 Series: haemophilus influenz ae type b vaccine, PRP-OMP conjugate No PCP None [facility] [id number] M DO Work Phone: Comment on above: 03 Series: 03 Series: 02/17/04 Series: 11/04/04 Series: hepatitis A vaccine, pediatric/adolescent dosage, 2 dose schedule No PCP None [facility] [id number] M DO Work Phone: Comment on above: 01/14/09 Series: 11/17/10 Series: hepatitis B vaccine, pediatric or pediatric/adolescent dosage No PCP None [facility] [id number] M DO Work Phone: Comment on above: 03 Series: 03 Series: 02/17/04 Series: measles, mumps and rubella virus vaccine No PCP None [facility] [id number] M DO Work Phone: Comment on above: 08/03/04 Series: 01/14/09 Series: pneumococcal conjuga te vaccine, 7 valent No PCP None [facility] [id number] M DO Work Phone: Comment on above: 03 Series: 03 Series: 02/17/04 Series: 11/04/04 Series: poliovirus vaccine, inactivated No PCP None [facility] [id number] M DO Work Phone: Comment on above: 03 Series: 03 Series: 02/17/04 Series: 01/14/09 Series: varicella virus vaccine No PCP None [facility] [id number] M DO Work Phone: Comment on above: 08/03/04 Series: 01/14/09 Series: NEGATED: Highlighted row has not occurred!08-12-2024 influenza, seasonal, injectable Tyrell Spencer MD Work Phone: [facility] Comment on above: Deferred: Patient Re fused Payers Date Payer Category Payer Self-pay 2023 Medicaid [id number] 2022 Medicaid [id number] 2022 Managed Care (Private) [facility] [id number] 2022 Private Health Insurance [id number] 2018 Private Health Insurance [id number]. [id number] 2003 Unknown [id number] 2.16.840.1.563855.3.579.2. 185 2003 Unknown [id number] 2.16.840.1.237925.3.579.2. 185 2003 Unknown [id number] 2.16.840.1.515958.3.579.2. 1243 2003 Unknown [id number] 2.16.840.1.705803.3.579.2. 1243 2003 Unknown [id number] 2.16.840.1.647939.3.579.2. 1243 2003 Unknown [id number] 2.16.840.1.179679.3.579.2. 4 2003 Unknown [id number] 2.16.840.1.072158.3.579.2. 1243 2003 Unknown [id number] 2.16.840.1.546493.3.579.2. 1243 2003 Unknown [id number] 2.16.840.1.157534.3.579.2. 1243 2003 Unknown [id number] 2.16.840.1.902095.3.579.2. 1244 2003 Unknown [id number] 2.16.840.1.181273.3.579.2. 1244 2003 Unknown [id number] 2.16.840.1.911130.3.579.2. 1245 2003 Unknown [id number] 2.16.840.1.712701.3.579.2. 1243 2003 Unknown [id number] 2.16.840.1.798789.3.579.2. 1243 2003 Unknown [id number] 2.16.840.1.577056.3.579.2. 1243 1974 Unknown [id number] 2.16.840.1.297373.3.579.2. 182 1974 Unknown [id number] 2.16.840.1.137612.3.579.2. 182 Unknown Unknown [id number] 2.16.840.1.106708.3.579.2. 462 Unknown [id number] 2.16.840.1.529027.3.579.2. 462 Unknown [id number] 2.16.840.1.992511.3.579.2. 462 Social History Date Type Detail Facility Start: 10-17-2020 End: 06-07-2024 Tobacco smoking status [facility] Never smoker [facility] Start: 10-17-2020 End: 06-07-2024 Tobacco use and exposure Never used [facility] Start: 10-17-2020 End: 11-12-2024 Alcohol intake Lifetime non-drinker (finding) [facility] Phone: Start: 05-07-2019 End: 11-08-2022 History SDOH Alcohol Frequency 1 [facility] Phone: Start: 09-30-2020 End: 11-08-2022 History SDOH Financial 5 [facility] Phone: Start: 09-30-2020 End: 11-08-2022 History SDOH Transport Med 2 [facility] Phone: Start: 2003 Sex Assigned At Not on file [facility] Phone: Exposure to SARS-CoV -2 (event) Yes [facility] Start: 05-28-2023 End: 11-12-2024 Exposure to SARS-CoV-2 (event) Not sure [facility] Start: 10-20-2022 [facility] Start: 06-07-2023 End: 06-10-2024 Lives with parents Lives with parents [facility] Start: 06-07-2023 End: 06-10-2024 Alcohol Use Disorder Identification Test - Consumption [AUDIT-C] [facility] How often to you hav e a drink containing alcohol? Never [facility] How many standard dr inks containing alcohol do you have on a typical day? Patient does not drink [facility] Work Phone: History of tobacco use Passive smoker [facility] Start: 06-10-2024 End: 11-14-2024 Alcoholic beverage intake Current non-drinker of alcohol (finding) [facility] Start: 06-07-2024 Education 21 [facility] Start: 2003 Sex assigned at Female [facility] Start: 06-07-2024 Gender identity Identifies as female gender (finding) [facility] Start: 06-07-2024 Sexual orientation Heterosexual (finding) [facility] Goals Date Patient Goal Desired Activity /State Personal health goal Functional Status Date Assessment Result Facility 11-12-2024 [place] - suicide s everity rating scale screener - recent [C-SSRS] [facility] Work Phone: 10-06-2024 [place] - suicide s everity rating scale screener - recent [C-SSRS] [facility] Work Phone: Clinical Notes 06-07-2023 to 11-18-2024 Betzy Gunter - 11/18/2024 8:46 AM EDTPrenatal Quick Notes - Jennifer De La Torre MD - 11/14/2024 11:50 AM EDTPrenatal Quick Notes - Jennifer De La Torre MD - 11/14/2024 11:50 AM EDTPatient Instructions Note Date & Type Note Facility 11-18-2024 History of Present illness Narrative POPULATION HEALTH NAVIGATION OUTREACH Action/FYI Left message to add technology auditor to OB provider field, My chart sent Reason for Outreach Medicaid OB/Peds Care Gaps due: N/A Patient Contacted: Unable or unnecessary to reach patient: Unable to reach patient Left message MyChart message sent Navigation Signature: Betzy Gunter, Population Health Navigator November 18, 2024 8:47 AM documented in this encounter [facility] 11-14-2024 Progress note Formatting of t his [...] 1 wk Jennifer De La Torre DO [facility] 11-14-2024 Miscellaneous Notes SW- RUQ pain off [...] La Torre DO documented in this encounter [facility] 11-14-2024 Instructions Vanna Birmingham MA - 11/14/2024 11:21 AM EDT SEQUENTIAL SCREENINGS The [facility] offers sequential screenings for women who are [...] It will require an appointment with our water quality technician. This is not an ultrasound performed [...] the above symptoms, contact our office at [phone] and ask to speak with a nurse. After hours, you can call doctors registry at [phone] OR call [facility] at [phone] and ask to have the doctor millinery salesperson paged. If you consider this an emergency, dial 1-6-2 or go to your nearest emergency department. NEED HELP? Are you dealing with a violent or abusive relationship? Are you a victim of rape or sexual assult? Call [facility] ([facility] 24 hour Crisis Hotline: 947.633.1267 or 055-473-6974. MANUAL Your Guide to a Healthy manual is now on-line. Visit [email or web address] to download your free copy documented in this encounter [facility] 11-08-2024 Telephone encounter Note Patient called back in and was notified. States she has tried heating pad and tylenol. Tylenol doesn't help as much, but the heating pad does. She will try with stretching over the weekend follow up next week at her scheduled appointment. She will call if needed for sooner visit. Janet Coe RN [facility] 11-08-2024 Miscellaneous Notes Patient called back in [...] to leave message because mailbox is full. [employer] message sent. Janet Coe RN Agree that [...] Janet Coe RN documented in this encounter [facility] 11-08-2024 Telephone encounter Note Attempted to call patient. Unable to leave message because mailbox is full. Mychart message sent. Janet Coe RN [facility] 11-08-2024 Telephone encounter Note Agree that this could be positioning or musculoskeletal. Try heating pad to area- taking Tylenol 1000 mg by mouth for pain and try YOGA/ STRETCHING. Anayeli Murry APRN.CNM [facility] Work Phone: 11-08-2024 Telephone encounter Note 36w4d [...] thinks lately. Please advise. Janet Coe RN [facility] 11-04-2024 Progress note Formatting of t his note might be different from the original. SW- Pt doing well. No MART, vision changes, pain, vb, lof. Good FM PE: Gen- NAD, well appearing Abd- Soft, gravid, NT See flowsheet A/p 36 wk gestation - GBS today - Vertex on bedside US - RTO 1 wk Jennifer De La Torre DO [facility] 11-04-2024 Miscellaneous Notes SW- Pt doing well. No MART, vision changes, pain, vb, lof. Good FM PE: Gen- NAD, well appearing Abd- Soft, gravid, NT See flowsheet A/p 36 wk gestation - GBS today - Vertex on bedside US - RTO 1 wk Jennifer De La Torre DO documented in this encounter [facility] 11-04-2024 Instructions Vanna Birmingham MA - 11/04/2024 3:01 PM EDT SEQUENTIAL SCREENINGS The [facility] offers sequential screenings for women who are [...] It will require an appointment with our water quality technician. This is not an ultrasound performed [...] the above symptoms, contact our office at [phone] and ask to speak with a nurse. After hours, you can call doctors registry at [phone] OR call [facility] at [phone] and ask to have the doctor millinery salesperson paged. If you consider this an emergency, dial 9--1 or go to your nearest emergency department. NEED HELP? Are you dealing with a violent or abusive relationship? Are you a victim of rape or sexual assult? Call [facility] ([place]) 24 hour Crisis Hotline: 484.608.8687 or 419-976-4294. MANUAL Your Guide to a Healthy manual is now on-line. Visit [email or web address] [email or web address] to download your free copy documented in this encounter [facility] 10-21-2024 Progress note Formatting of t his [...] 2 wks Jennifer De La Torre DO [facility] 10-21-2024 Miscellaneous Notes SW- No pain, vb, [...] La Torre DO documented in this encounter [facility] 10-21-2024 Instructions Vanna Birmingham MA - 10/21/2024 3:26 PM EDT SEQUENTIAL SCREENINGS The [facility] offers sequential screenings for women who are [...] It will require an appointment with our water quality technician. This is not an ultrasound performed [...] the above symptoms, contact our office at [phone] and ask to speak with a nurse. After hours, you can call doctors registry at [phone] OR call [facility] at [phone] and ask to have the doctor millinery salesperson paged. If you consider this an emergency, dial 9-1-4 or go to your nearest emergency department. NEED HELP? Are you dealing with a violent or abusive relationship? Are you a victim of rape or sexual assult? Call [facility] ([place]) 24 hour Crisis Hotline: 480.426.3987 or 221-735-1822. MANUAL Your Guide to a Healthy manual is now on-line. Visit [email or web address] [email or web address] to download your free copy documented in this encounter [facility] 10-15-2024 Telephone encounter Note Again no further US. Can discuss at next visit. Naren Bullard MD [facility] 10-15-2024 Miscellaneous Notes Again no further US. Can discuss at next visit. Naren Bullard MD Correct. No additional US needed. Naren Bullard MD She doesn't need another formal u/s at this point, right? Janet Coe RN documented in this encounter [facility] 10-10-2024 Telephone encounter Note Correct. No additional US needed. Naren Bullard MD [facility] 10-10-2024 Telephone encounter Note She doesn't need another formal u/s at this point, right? Janet Coe RN [facility] 10-10-2024 Progress note Formatting of t his [...] PTL & FM precautions Naren Bullard MD [facility] 10-10-2024 Miscellaneous Notes KJ - S: Maryana [...] Naren Bullard MD documented in this encounter [facility] 10-10-2024 Instructions Arina Sanchez MA - 10/10/2024 10:50 AM EDT SEQUENTIAL SCREENINGS The [facility] offers sequential screenings for women who are [...] It will require an appointment with our water quality technician. This is not an ultrasound performed [...] the above symptoms, contact our office at [phone] and ask to speak with a nurse. After hours, you can call doctors registry at [phone] OR call [facility] at [phone] and ask to have the doctor millinery salesperson paged. If you consider this an emergency, dial 9-1-3 or go to your nearest emergency department. NEED HELP? Are you dealing with a violent or abusive relationship? Are you a victim of rape or sexual assult? Call [facility] ([place]) 24 hour Crisis Hotline: 770.528.6996 or 643-635-7126. MANUAL Your Guide to a Healthy manual is now on-line. Visit [email or web address] [email or web address] to download your free copy documented in this encounter [facility] 10-07-2024 Telephone encounter Note Thank you, would recommend keeping appointment this week and please make an appointment note to see this phone encounter thanks [facility] Work Phone: 10-07-2024 Miscellaneous Notes Thank you, would recommend keeping appointment this week and please make an appointment note to see this phone encounter thanks Pt called in to change appt on 10/10/24 as it did not fit her schedule. Stating she went to [facility] 3 days ago, then to [facility] 10/06. States dx Pneumonia and given IV antibiotics. States she is feeling improvement with the shortness of breath and denies at this time. Was prescribed PO Augmentin and plans to pharmacy picking tech Rx today. Advised to continue to push fluids, continue to monitor movement, and take antibiotics as advised. Rescheduled OB appt from 10/10/24 to 10/14/24 d/t patient availability. However, last OB appt was 09/23/24. Does Pt need seen sooner than 10/14/24? Please advise. Michelle Lemus RN 32w0d Updated Care Everywhere. Patient was seen at [facility]. See notes available in Epic now. Dx: [...] visit thanks ALICE documented in this encounter [facility] 10-07-2024 Telephone encounter Note Pt called in to change appt on 10/10/24 as it did not fit her schedule. Stating she went to [facility] 3 days ago, then to [facility] 10/06. States dx Pneumonia and given IV antibiotics. States she is feeling improvement with the shortness of breath and denies at this time. Was prescribed PO Augmentin and plans to pharmacy picking tech Rx today. Advised to continue to push fluids, continue to monitor movement, and take antibiotics as advised. Rescheduled OB appt from 10/10/24 to 10/14/24 d/t patient availability. However, last OB appt was 09/23/24. Does Pt need seen sooner than 10/14/24? Please advise. Michelle Lemus RN [facility] 10-07-2024 Telephone encounter Note 32w0d Updated Care Everywhere. Patient was seen at [facility]. See notes available in Epic now. Dx: Pneumonia of left lower lobe due to infectious organism. Patient has an upcoming OB visit on 10/10. Do we need to move up her appointment or do you have further instructions before we call patient? Sanjuana Caceres RN [facility] 10-07-2024 Telephone encounter Note Please check in on patient this morning and get an update from ER visit thanks SW [facility] 10-06-2024 Physician Emergency department Note Emergency Medicine [...] discharged. Have instructed her to call her accessioner in the morning and if she has [...] Arsenio Roy 10/06/2024 5:34 PM Dictation workstation: [id number] Labs Reviewed CBC WITH AUTO DIFFERENTIAL - [...] in ng/mL Fibrinogen Equivalent Units (FEU). Per watch crystal grinder's instructions for use, a value of less [...] performed using a different testing methodology at [facility] than at [facility]. Direct result comparisons should only be made within the same method. SARS-COV-2 PCR - Normal Coronavirus 2019, PCR Not Detected Narrative: This assay is an FDA-cleared, in vitro diagnostic nucleic acid amplification test for the qualitative detection and differentiation of SARS CoV-2 from nasopharyngeal specimens collected from individuals with signs and symptoms of respiratory tract infections, and has been validated for use at [facility]. Negative results do not preclude COVID-19 infections [...] and has been validated for use at [facility]. Negative results do not preclude Influenza A/B infections, and should not be used as the sole basis for diagnosis, treatment, or other management decisions. If Influenza A/B and RSV PCR results are negative, testing for Parainfluenza virus, Adenovirus and Metapneumovirus is routinely performed for [facility] [place] and [place] in[place], and is available on other patients by placing an add-on request. TSH WITH REFLEX TO FREE T4 IF ABNORMAL - Normal Thyroid Stimulating Hormone 2.25 Narrative: TSH testing is performed using different testing methodology at [facility] than at other [facility]. Direct result comparisons should only be made within the same method. Medical Decision Making 1 medication as prescribed 2 Tylenol for fever or pain 3 follow-up with accessioner tomorrow if symptoms worsen return to ED. Final diagnoses: [J18.9] Pneumonia of left lower lobe due to infectious organism Procedure Procedures DO John Dorsey DO 10/06/241931 [facility] Work Phone: 10-06-2024 Emergency department Note Emergency [...] discharged. Have instructed her to call her accessioner in the morning and if she has [...] Arsenio Roy 10/06/2024 5:34 PM Dictation workstation: [id number] Labs Reviewed CBC WITH AUTO DIFFERENTIAL - [...] in ng/mL Fibrinogen Equivalent Units (FEU). Per watch crystal grinder's instructions for use, a value of less [...] performed using a different testing methodology at [facility] than at [facility]. Direct result comparisons should only be made within the same method. SARS-COV-2 PCR - Normal Coronavirus 2019, PCR Not Detected Narrative: This assay is an FDA-cleared, in vitro diagnostic nucleic acid amplification test for the qualitative detection and differentiation of SARS CoV-2 from nasopharyngeal specimens collected from individuals with signs and symptoms of respiratory tract infections, and has been validated for use at [facility]. Negative results do not preclude COVID-19 infections [...] and has been validated for use at [facility]. Negative results do not preclude Influenza A/B infections, and should not be used as the sole basis for diagnosis, treatment, or other management decisions. If Influenza A/B and RSV PCR results are negative, testing for Parainfluenza virus, Adenovirus and Metapneumovirus is routinely performed for [facility] [place] and intensive care inpatients, and is available on other patients by placing an add-on request. TSH WITH REFLEX TO FREE T4 IF ABNORMAL - Normal Thyroid Stimulating Hormone 2.25 Narrative: TSH testing is performed using different testing methodology at [facility] than at [facility]. Direct result comparisons should only be made within the same method. Medical Decision Making 1 medication as prescribed 2 Tylenol for fever or pain 3 follow-up with accessioner tomorrow if symptoms worsen return to ED. [...] in ng/mL Fibrinogen Equivalent Units (FEU). Per watch crystal grinder's instructions for use, a value of less [...] performed using a different testing methodology at [facility] than at [facility]. Direct result comparisons should only be made within the same method. SARS-COV-2 PCR - Normal Coronavirus 2019, PCR Narrative: This assay is an FDA-cleared, in vitro diagnostic nucleic acid amplification test for the qualitative detection and differentiation of SARS CoV-2 from nasopharyngeal specimens collected from individuals with signs and symptoms of respiratory tract infections, and has been validated for use at [facility]. Negative results do not preclude COVID-19 infections [...] and has been validated for use at [facility]. Negative results do not preclude Influenza A/B infections, and should not be used as the sole basis for diagnosis, treatment, or other management decisions. If Influenza A/B and RSV PCR results are negative, testing for Parainfluenza virus, Adenovirus and Metapneumovirus is routinely performed for [facility] [place] and intensive care in[place], and is available on other patients by placing an add-on request. TSH WITH REFLEX TO FREE T4 IF ABNORMAL - Normal XR chest 1 view Final Result Ill-defined opacity at the left lung base favored to represent atelectasis or developing pneumonia. MACRO: None. Signed by: Arsenio Roy 10/06/2024 5:34 PM Dictation workstation: [id number] CT angio chest for pulmonary embolism (Results [...] ED Physician in the absence of a tip cementer: yes Comments: EKG interpreted by Dr. Jose Damon: Sinus tachycardia 102 bpm. AL interval 118 ms. QTc of 435 ms. [...] Damon DO 10/06/241904 documented in this encounter [facility] Work Phone: 10-06-2024 Physician Emergency department Note [...] in ng/mL Fibrinogen Equivalent Units (FEU). Per watch crystal grinder's instructions for use, a value of less [...] performed using a different testing methodology at [facility] than at [facility]. Direct result comparisons should only be made within the same method. SARS-COV-2 PCR - Normal Coronavirus 2019, PCR Narrative: This assay is an FDA-cleared, in vitro diagnostic nucleic acid amplification test for the qualitative detection and differentiation of SARS CoV-2 from nasopharyngeal specimens collected from individuals with signs and symptoms of respiratory tract infections, and has been validated for use at [facility]. Negative results do not preclude COVID-19 infections [...] and has been validated for use at [facility]. Negative results do not preclude Influenza A/B infections, and should not be used as the sole basis for diagnosis, treatment, or other management decisions. If Influenza A/B and RSV PCR results are negative, testing for Parainfluenza virus, Adenovirus and Metapneumovirus is routinely performed for [facility] [place] oncology and intensive care inpatients, and is available on other patients by placing an add-on request. TSH WITH REFLEX TO FREE T4 IF ABNORMAL - Normal XR chest 1 view Final Result Ill-defined opacity at the left lung base favored to represent atelectasis or developing pneumonia. MACRO: None. Signed by: Arsenio Roy 10/06/2024 5:34 PM Dictation workstation: [id number] CT angio chest for pulmonary embolism (Results [...] ED Physician in the absence of a tip cementer: yes Comments: EKG interpreted by Dr. Jose Damon: Sinus tachycardia 102 bpm. AL interval 118 ms. QTc of 435 ms. [...] use: Never Jose Damon DO 10/06/24 190 [facility] Work Phone: 10-06-2024 Telephone encounter Note Patient called back to determine which emergency room she should head to. Advised nearest emergency room. She will head to [facility]. [facility] 10-06-2024 Miscellaneous Notes Patient called back to determine which emergency room she should head to. Advised nearest emergency room. She will head to [facility]. Reason for Call: difficulty breathing, back pain Outcome: Based on symptoms and assessment findings at this time, Patient advised to go the Emergency Room now (patient reports she is planning to deliver at [place].. Patient plans to go to Hospital at this time. Encouraged to press puller and call 911 if anything worsens or [...] pre-eclampsia in previous ; Protocols used: Breathing [id number] documented in this encounter [facility] 10-06-2024 Telephone encounter Note Reason for Call: difficulty breathing, back pain Outcome: Based on symptoms and assessment findings at this time, Patient advised to go the Emergency Room now (patient reports she is planning to deliver at [place].. Patient plans to go to Hospital at this time. Encouraged to press puller and call 911 if anything worsens or [...] pre-eclampsia in previous ; Protocols used: Breathing [id number] [facility] 09-23-2024 Progress note Formatting of t his [...] 2 weeks or prn Tyrell Spencer M.D. [facility] 09-23-2024 Miscellaneous Notes RR- VB No. LOF [...] Tyrell Spencer M.D. documented in this encounter [facility] 09-23-2024 Instructions Arina Sanchez MA - 09/23/2024 3:29 PM EDT SEQUENTIAL SCREENINGS The [facility] offers sequential screenings for women who are [...] It will require an appointment with our water quality technician. This is not an ultrasound performed [...] the above symptoms, contact our office at [phone] and ask to speak with a nurse. After hours, you can call doctors registry at [phone] OR call [facility] at [phone] and ask to have the doctor millinery salesperson paged. If you consider this an emergency, dial 9-1- or go to your nearest emergency department. NEED HELP? Are you dealing with a violent or abusive relationship? Are you a victim of rape or sexual assult? Call [facility] ([place]) 24 hour Crisis Hotline: 391.465.1047 or 766-348-3217. MANUAL Your Guide to a Healthy manual is now on-line. Visit [email or web address] [email or web address] to download your free copy documented in this encounter [facility] 09-09-2024 Progress note Formatting of t his note might be different from the original. SW- Pt doing well. No pain, vb, lof. Good FM PE: Gen- NAD, well appearing Abd- Soft, gravid, NT See flowsheet A/p 28 wk gestation - LARC signed - Tdap today - plan sheet given - 28 wk labs - Rto 2 wk Jennifer De La Torre DO [facility] 09-09-2024 Miscellaneous Notes SW- Pt doing well. No pain, vb, lof. Good FM PE: Gen- NAD, well appearing Abd- Soft, gravid, NT See flowsheet A/p 28 wk gestation - LARC signed - Tdap today - plan sheet given - 28 wk labs - Rto 2 wk Jennifre De La Torre DO documented in this encounter [facility] 09-09-2024 Note HNO ID: [id number] Author: VANNA BIRMINGHAM MA Service: ? Author Type: Tray Service Worker Type: Progress Notes Filed: 09/09/2024 16:20 Note [...] severely ill: Yes Patient denies history of Guillain-Spring Syndrome (a severe paralytic illness): Yes Tdap Adacel injection was given without incident. See immunizations for details of immunizations administered today. VIS sheet provided: Yes Provider Jennifer De La Torre DO was present in office at time of injection. Vanna Birmingham MA [facility] 09-09-2024 History of Present illness Narrative Patient [...] severely ill: Yes Patient denies history of Guillain-Spring Syndrome (a severe paralytic illness): Yes Tdap Adacel injection was given without incident. See immunizations for details of immunizations administered today. VIS sheet provided: Yes Provider Jennifer De La Torre DO was present in office at time of injection. Vanna Birmingham MA documented in this encounter [facility] 09-09-2024 Instructions Vanna Birmingham MA - 09/09/2024 2:30 PM EDT SEQUENTIAL SCREENINGS The [facility] offers sequential screenings for women who are [...] It will require an appointment with our water quality technician. This is not an ultrasound performed [...] the above symptoms, contact our office at [phone] and ask to speak with a nurse. After hours, you can call doctors registry at [phone] OR call [facility] at [phone] and ask to have the doctor millinery salesperson paged. If you consider this an emergency, dial 9-1-1 or go to your nearest emergency department. NEED HELP? Are you dealing with a violent or abusive relationship? Are you a victim of rape or sexual assult? Call [facility] ([place]) 24 hour Crisis Hotline: 598.102.4659 or 439-712-2203. MANUAL Your Guide to a Healthy manual is now on-line. Visit [email or web address] [email or web address] to download your free copy documented in this encounter [facility] 09-06-2024 Telephone encounter Note Agree with plan of care. Anayeli Murry APRN.CNM [facility] Work Phone: 09-06-2024 Miscellaneous Notes Agree with [...] Sanjuana Caceres RN documented in this encounter [facility] 09-06-2024 Telephone encounter Note 27w4d Called and [...] visit. Patient voiced agreement. Sanjuana Caceres RN [facility] 08-12-2024 Progress note Formatting of t his [...] doesn't want today, declines levon Spencer M.D. [facility] 08-12-2024 Miscellaneous Notes RR- VB No. LOF [...] levon Spencer M.D. documented in this encounter [facility] 08-12-2024 Instructions Arina Sanchez MA - 08/12/2024 3:05 PM EDT SEQUENTIAL SCREENINGS The [facility] offers sequential screenings for women who are [...] It will require an appointment with our water quality technician. This is not an ultrasound performed [...] the above symptoms, contact our office at [phone] and ask to speak with a nurse. After hours, you can call doctors registry at [phone] OR call [facility] at [phone] and ask to have the doctor millinery salesperson paged. If you consider this an emergency, dial 9-3-4 or go to your nearest emergency department. NEED HELP? Are you dealing with a violent or abusive relationship? Are you a victim of rape or sexual assult? Call [facility] ([place]) 24 hour Crisis Hotline: 642.655.9032 or 194-498-4123. MANUAL Your Guide to a Healthy manual is now on-line. Visit [email or web address] [email or web address] to download your free copy documented in this encounter [facility] 07-18-2024 Note HNO ID: [id number] Author: MARGO BULLARD APRN.CASE FOLDER Service: ? Author Type: Nurse Practitioner Type: [...] was agreeable and will take her now. [facility] 07-18-2024 History of Present illness Narrative 20 [...] take her now. documented in this encounter [facility] 07-16-2024 Progress note Formatting of t his [...] - needs 36wk testing Naren Bullard MD [facility] 07-16-2024 Miscellaneous Notes KJ - VB No. [...] Naren Bullard MD documented in this encounter [facility] 07-16-2024 Instructions Arina Sanchez MA - 07/16/2024 2:16 PM EST SEQUENTIAL SCREENINGS The [facility] offers sequential screenings for women who are [...] It will require an appointment with our water quality technician. This is not an ultrasound performed [...] the above symptoms, contact our office at [phone] and ask to speak with a nurse. After hours, you can call doctors registry at [phone] OR call [facility] at [phone] and ask to have the doctor millinery salesperson paged. If you consider this an emergency, dial 9-1-9 or go to your nearest emergency department. NEED HELP? Are you dealing with a violent or abusive relationship? Are you a victim of rape or sexual assult? Call [facility] ([place]) 24 hour Crisis Hotline: 131.598.3440 or 254-666-3831. MANUAL Your Guide to a Healthy manual is now on-line. Visit [email or web address] to download your free copy documented in this encounter [facility] 06-10-2024 Instructions Clara Cantrell LPN - 06/10/2024 2:42 PM EST Please select the following link to access the [facility] Your Guide to a Healthy . [email or web address] documented in this encounter [facility] 06-07-2024 Note HNO ID: [id number] Author: PRISCILLA MURPHY APRN.CASE FOLDER Service: ? Author Type: Nurse Practitioner Type: Progress Notes Filed: 06/10/2024 16:09 Note Text: INITIAL OB ASSESSMENT Patient declined outreach clinician. HPI: Maryana is a 18 year old [...] Status:Co-habitating Partner: Name: Fercho Age: 19 Occupation: [employer] Gender: Male PAST MEDICAL HISTORY Diagnosis Date Contact dermatitis and other eczema due to other specified agent eczema Hx of pre-eclampsia in prior , currently 06/2023 third trimester 06/2023 Positive Chlamydia PCR 12/2022 PAST SURGICAL HISTORY Procedure Laterality Date ADENOIDECTOMY HX 2016 MYRINGOTOMY W TUBE,BILATERAL(2) 2016 Current Outpatient Medications Medication Sig Dispense Refill PNV no.[id number] ( GUMMIES) 400 mcg-35 mg- 25 mg-5 [...] The sensitive examin (more content not included)... [facility] 06-07[facility]24 History of Present illness Narrative INITIAL OB ASSESSMENT Patient declined outreach clinician. HPI: Maryana is a 18 year old [...] Status:Co-habitating Partner: Name: Fercho Age: 19 Occupation: [employer] Gender: Male PAST MEDICAL HISTORY Diagnosis Date Contact dermatitis and other eczema due to other specified agent eczema Hx of pre-eclampsia in prior , currently 06/2023 third trimester 06/2023 Positive Chlamydia PCR 12/2022 PAST SURGICAL HISTORY Procedure Laterality Date ADENOIDECTOMY HX 2016 MYRINGOTOMY W TUBE,BILATERAL(2) 2016 Current Outpatient Medications Medication Sig Dispense Refill PN no.[id number] ( GUMMIES) 400 mcg-35 mg- 25 mg-5 [...] discussed with the Patient or Patient's Authorized Practice Representative. As applicable, any other physician, advance practice provider, medical student, or other health professional student that will be observing or involved in the sensitive examination for educational or training purposes was discussed with the Patient or Authorized Practice Representative. The Patient or Authorized Practice Representative has agreed to proceed with the sensitive [...] Your guide to a health and the It Technical Architect. Reviewed midwifery and child welfare director services that are available. 2) Screening: Hemoglobin [...] Priscilla Murphy APRN.KELSEY documented in this encounter [facility] 06-19-2023 Plan of care note VSS, fundus firm, bleeding scant, pain well controlled. Cleared for discharge. Zero signs acute distress [facility] 06-19-2023 Miscellaneous Notes VSS, fundus firm, bleeding scant, pain well controlled. Cleared for discharge. Zero signs acute distress This note was copied from a baby's chart. Pharmacy Care Coordinator Note Consultation Reason for Consult: Follow-up service order expediter Name: Valentine Hooks RN IBCLC Maternal Information [...] note was copied from a baby's chart. Pharmacy Care Coordinator Note Consultation Maternal Information Maternal Assessment Infant [...] blood pressures and promoting rest for patient Pharmacy Care Coordinator Note Consultation Reason for Consult: Follow-up assessment, Late Family Law Attorney Name: Noemi Ludwig RN, IBCLC Maternal Information [...] as needed as mother anticipates discharge today. Pharmacy Care Coordinator Note Consultation Reason for Consult: Follow-up service order expediter Name: Noemi Ludwig RN, IBCLC Maternal Information [...] and bleeding slowed with intervention. Get William [[id number]] Labor Events Sac identifier: Sac 1 Rupture [...] 6 8 Apgars assigned by: Fabricio HAWTHORNE RNbox sealing machine feeder Providers Delivering clinician: Bryan Us MD Provider Role Jennifer Hwang, box sealing machine feeder Nurse Agnieszka Hawthorne, SOULEYMANE Nursery Nurse Shaina [...] stable since admission documented in this encounter [facility] Work Phone: 06-19-2023 Hospital course Narrative Discharge [...] Your Medications These medications were sent to [facility] [address] [place] [address] Hours: 8:30 AM to 5 PM Mon-Fri ferrous sulfate (325 mg ferrous sulfate) tablet NIFEdipine ER 90 mg 24 hr tablet norethindrone 0.35 mg tablet Test Results Pending At Discharge Pending Labs Order Current Status Surgical Pathology Exam - PLACENTA In process Outpatient Follow-Up Future Appointments Date Time Provider Department Center 07/04/2023 9:40 AM [facility] [place] 07/11/2023 9:00 AM [facility] order placed to schedule 2-5 days for BP check and 4-6 weeks for routine visit with Alycia Vicente CNM. Vanna Wu PA-C 06/19/23 12:10 PM Vocera documented in this encounter [facility] Work Phone: 06-19-2023 Obstetrics Note This note was copied from a baby's chart. Pharmacy Care Coordinator Note Consultation Reason for Consult: Follow-up service order expediter Name: Valentine Hooks RN IBCLC Maternal Information [...] call if any questions or concerns arise. [facility] 06-19-2023 Obstetrics Note This note was copied from a baby's chart. Pharmacy Care Coordinator Note Consultation Maternal Information Maternal Assessment Assessment Feeding Assessment LATCH TOOL Breast Pump Other OB Tools Patient Follow-up Other OB Documentation Recommendations/Summary Mother sleeping and desired to defer consult at this time. Will check back at a later time. [facility] Work Phone: 06-18-2023 History of Present illness [...] BP Maternal Well-Being - emotional support provided [place] Feeding - /pumping encouraged; consult prn Contraception [...] home Maternal Well-Being - emotional support provided [place] Feeding - /pumping encouraged; consult prn Contraception [...] second trimester 03/21/2023 by Alycia R Schwochow, MANAGER R D-CNM No Priority: Medium Overview Addendum 06/07/2023 4:21 PM by Elsa Kelly, MANAGER R D-SUSUM Initial BMI 24 rrNIPS Declines COVID and [...] today Maternal Well-Being - emotional support provided [place] Feeding - /pumping encouraged; consult prn Contraception [...] your OB provider. Tyrell Kirby PA-C Pager [phone] Principal Problem: Preeclampsia, third trimester Problems (from [...] protocol - BMZ given 06/07-06/[address] [facility] MS-3 Patient seen and evaluated with [...] variability, + accels, - decels SVE: 3/50/-3 [place]: q2-5 min cx Skin: No rashes/lesions/erythema Neuro: [...] in the note. Intrapartum Progress Note Assessment/Plan Marynaa William is a 17 y.o. at 35w6d. [...] moderate variability and Accelerations present, decelerations absent [place] reading: q 2-5 mins VAGINA: crb remains [...] Gale Dillon MD documented in this encounter [facility] Work Phone: 06-18-2023 Plan of care note The patient's goals for the shift include rest The clinical goals for the shift include stable blood pressures this shift Continuing to monitor blood pressures and promoting rest for patient [facility] 06-18-2023 Obstetrics Note Pharmacy Care Coordinator Note Consultation Reason for Consult: Follow-up assessment, Late Family Law Attorney Name: Noemi Ludwig RN, IBCLC Maternal Information [...] as needed as mother anticipates discharge today. [facility] 06-16-2023 Obstetrics Note Pharmacy Care Coordinator Note Consultation Reason for Consult: Follow-up service order expediter Name: Noemi Ludwig RN, IBCLC Maternal Information Has mother breastfed before?: No to breast within first 2 hours of ?: No Delayed Due to: Other (Comment) (mother does not want to latch infant) Exclusive Pump and Bottle Feed: Yes Maternal Assessment Infant Assessment Behavior: Light sleep Feeding Assessment Nutrition Source: (formula until can give expressed breastmilk (ideally exclusively)) LATCH TOOL Breast Pump Pump: [place] grade electric pump Frequency: Less than 3 [...] call for any questions, concerns or assistance. [facility] Work Phone: 06-15-2023 Plan of care note The patient's goals for the shift include Bonding with The clinical goals for the shift include BP >160/110 [facility] 06-15-2023 Note Formatting of this n ote [...] provider. Pt verbalized understanding the above information. [facility] 06-15-2023 Hospital Discharge instructions Jackelin Hutchison RN [...] to nearest emergency room. *Information obtained from [facility] s: Save Your Life: Get Care for These POST- Warning Signs Pacifier Use The [place] [employer] recommends that pacifier use [...] learning to breastfeed. documented in this encounter [facility] Work Phone: 06-15-2023 Plan of care note [...] clinical goals for the shift include BP<160/110 [facility] 06-15-2023 Labor and delivery summary note OB [...] and bleeding slowed with intervention. Get William [[id number]] Labor Events Sac identifier: Sac 1 Rupture [...] No Shoulder Dystocia Shoulder dystocia present?: No [place] Delivery Time head delivered: 06/15/2023 04:20:00 date/time: [...] 6 8 Apgars assigned by: Fabricio HAWTHORNE box sealing machine feeder Providers Delivering clinician: Bryan Us MD Provider Role Jennifer Hwang RN Delivery Nurse Agnieszka Hawthorne, RN Nursery Nurse Shaina Browning MD Resident Shaina Browning MD PGY1 Associated attestation - Bryan Us MD - 06/16/2023 7:56 PM EST I was present during all critical and canela portions of the procedure(s) and immediately available to furnish services the entire duration. See resident note for details. [facility] Work Phone: 06-15-2023 Note Formatting of this [...] PCN per protocol Shaina Browning MD, PGY-1 [facility] Work Phone: 06-14-2023 Note Formatting of this [...] Discussed with Dr. Malka Browning MD, PGY-1 [facility] Work Phone: 06-14-2023 Note Formatting of this [...] AROMd for clear Breann Sears MD PGY1 [facility] Work Phone: 06-14-2023 Note Formatting of this [...] Dr. Foreign Landaverde MD Labor and Delivery [facility] Work Phone: 06-13-2023 Plan of care note VS and assessments stable since admission [facility] Work Phone: 06-13-2023 History and physical note [...] Lab Review Labs in chart were reviewed. [facility] Work Phone: 06-13-2023 History and physical note [...] chart were reviewed. documented in this encounter [facility] Work Phone: 06-07-2023 Nurse Note Pt discharged [...] further questions or concerns. Ambulated off unit. [facility] Work Phone: 06-07-2023 Nurse Note Pt discharged [...] Ambulated off unit. documented in this encounter [facility] Work Phone: 06-07-2023 History of Present illness [...] call. CESAR Phelps documented in this encounter [facility] Work Phone: 06-07-2023 History and physical note [...] Delgado was sent in for evaluation by hyperion administrator Nirav Kelly following her appointment this evening, [...] 125bpm, mod variability, + accels, - decels [place] reading: quiet, no contractions noted NEUROLOGICAL: alert, oriented, normal speech, no focal findings or movement disorder noted, DTRs normal and symmetrical PSYCHOLOGICAL: awake and alert; oriented to person, place, and time Lab Review Labs in chart were reviewed. [facility] Work Phone: 06-07-2023 History and physical note [...] Maryana was sent in for evaluation by hyperion administrator Nirav Kelly following her appointment this evening, [...] 125bpm, mod variability, + accels, - decels [place] reading: quiet, no contractions noted NEUROLOGICAL: alert, oriented, normal speech, no focal findings or movement disorder noted, DTRs normal and symmetrical PSYCHOLOGICAL: awake and alert; oriented to person, place, and time Lab Review Labs in chart were reviewed. documented in this encounter [facility] Work Phone: Evaluation note Diagnosis Vaginal bleeding- Primary Other specified noninflammatory disorder of vagina Intrauterine documented in this encounter [facility] Phone: evaluation note* Diagnosis Vaginal bleeding- Primary Other specified noninflammatory disorder of vagina Threatened miscarriage Threatened , unspecified as to episode of care documented in this encounter [facility] Phone: evaluation note* Diagnosis Threatened miscarriage in early Threatened , unspecified as to episode of care documented in this encounter [facility] Phone: evalgwiydx note* Diagnosis Early stage of documented in this encounter [facility] note* Diagnosis Proteinuria affecting in third trimester- Primary Proteinuria affecting in third trimester Elevated blood pressure reading in office without diagnosis of hypertension Elevated blood pressure reading in office without diagnosis of hypertension documented in this encounter [facility] Work Phone: Evaluation note* Diagnosis Preeclampsia, third trimester- Primary Preeclampsia, third trimester Anemia of mother in , delivered with condition Anemia of mother, with delivery, with mention of complication Encounter for initial prescription of contraceptive pills documented in this encounter [facility] Work Phone: Evaluation note* Diagnosis 15 weeks gestation of - Primary state, incidental Late care affecting in second trimester Short interval between pregnancies complicating , antepartum Supervision of other high-risk Hx of pre-eclampsia in prior , currently with other poor obstetric history Supervision of high risk , antepartum [facility] Diagnosis Supervision of high risk , antepartum- Primary Late care affecting in second trimester Short interval between pregnancies complicating , antepartum Supervision of other high-risk Hx of pre-eclampsia in prior , currently with other poor obstetric history 20 weeks gestation of state, incidental [facility] Diagnosis Bilateral calf pain- Primary Pain in limb [facility] Diagnosis Encounter for anatomic survey- Primary 22 weeks gestation of state, incidental documented in this encounter [facility] note* Diagnosis 24 weeks gestation of - [...] today, declines covid [facility]* Diagnosis 24 weeks gestation of (HCC)- [...] unspecified single disease documented in this encounter [facility] note* Diagnosis 24 weeks gestation of (HCC)- Primary state, incidental Screening for diabetes mellitus Supervision of high risk , antepartum (HCC) Need for influenza vaccination Need for prophylactic vaccination and inoculation against influenza 30 weeks gestation of (HCC)- Primary state, incidental Late care (HCC) Insufficient care Supervision of high risk in third trimester (HCC) Unspecified high-risk documented in this encounter [facility] note* Diagnosis Pneumonia of left lower lobe due to infectious organism- Primary documented in this encounter [facility] Work Phone: Evaluation note* Diagnosis 24 weeks gestation of (HCC)- Primary state, incidental Screening for diabetes mellitus Supervision of high risk , antepartum ([facility]) Need for influenza vaccination Need for prophylactic vaccination and inoculation against influenza Anemia complicating , third trimester (HCC)- Primary 32 weeks gestation of (HCC) state, incidental Supervision of high risk in third trimester (HCC) Unspecified high-risk Pneumonia affecting in third trimester ([facility]) * Assessment & Plan Note - Naren Bullard MD - 10/10/2024 11:02 AM EDTAssociated Problem(s): Anemia complicating , third trimester (HCC) Orders: COMPLETE BLOOD COUNT; Future IRON AND TIBC; Future FERRITIN; Future * Assessment & Plan Note - Naren Bullard MD - 10/10/2024 11:02 AM EDTAssociated Problem(s): Pneumonia affecting in third trimester ([facility]) Continue augmentin documented in this encounter [facility] note* Diagnosis 24 weeks gestation of (HCC)- Primary state, incidental Screening for diabetes mellitus Supervision of high risk , antepartum ([facility]) Need for influenza vaccination Need for prophylactic [...] and obstetric disorders [facility] Diagnosis 24 weeks gestation of (HCC)- [...] (HCC) state, incidental documented in this encounter [facility] note* Diagnosis Rib pain on right side- Primary 37 weeks gestation of (HHS-HCC) Calculus of gallbladder without cholecystitis without obstruction documented in this encounter [facility] Work Phone: Evaluation note* Diagnosis 24 weeks [...] cholecystitis or obstruction documented in this encounter [facility] Discharge instructions* Instructions* Alexandre Casillas MD - 10/18/[address] [place] [address]. REPEAT TEST IN 48H. RETURN FOR NEW OR WORSENING SYMPTOMS OR IF BLEEDING THRU MORE THAN 1 PAD PER HOUR. [facility] Hospital Discharge instructions* Instructions* Alexandre Casillas MD - 10/19/2020 FOLLOW UP WITH OB OR RETURN TO ED TOMORROW FOR 48H HCG TEST. LOOKUP BLOOD TYPE FOR RHOGAM TOMORROW,IF INDICATED. RETURN IF BLEEDING THROUGH MORE THAN 1 PAD PER HOUR. * Attachments The following attachments cannot be sent through Care Everywhere. * Miscarriage: Threatened ([place]ic) [facility]: Hospital Discharge instructions* Attachments The following attachments cannot be sent through Care Everywhere. * _Pneumonia, Bacterial, [facility] ([place]ic) [facility] Discharge instructions* Attachments The following attachments cannot be sent through Care Everywhere. * _Cholelithiasis, [facility] (Icelandic) * Gallbladder Diet ([place]ic) [facility] Phone: Reason for referral (narrative)* Consultation (Routine) - Authorized Specialty Diagnoses / Procedures Referred By Contac t Referred To Contact Maternal and Medicine Diagnoses Proteinuria affecting in third trimester Elevated blood pressure reading in office without diagnosis of hypertension Paty Hernandez APRN-CNM Lillian Cameron [facility] [address] [place] [address] Referral ID Status Reason Start Date Expiration Date Visits Requested Visits Authorized [id number] Authorized Specialty Services Required 06/07/2023 06/06/2024 1 1 [facility] Work Phone: Reaxko for referral (narrative)* Diagnostic Procedure Only (Routine) - Authorized Specialty Diagnoses / Procedures Referred By Contac t Referred To Contact [facility] Diagnoses 15 weeks gestation of Procedures OBSTETRIC ULTRASOUND WHI US PREG UTERUS AFTER 1ST TRIMEST GESTATION Priscilla Murphy APRN.CASE FOLDER [address] [place] [address] [facility] [place] [address] Referral ID Status Reason Start Date Expiration Date Visits Requested Visits Authorized [id number] Authorized Auto-Generat ed Referral 06/10/2024 06/10/2025 1 1 [facility] Advance Directives Documents on File Type Date Recorded Patient Practice Representative Expl anation ACP-Advance Directive ACP-Power of Book Packer Latest Code Status on File Code Status [...] SINGLE OR FIRST GESTATION Hina Winter APRN [facility] [address] [place] [address] Referral ID Status Reason Start Date Expiration Date V isits Requested Visits Authorized [id number] Pending Review 12/09/2022 12/08/2023 1 1 Additional Source Comments Reason for Visit (unrecogniz ed section and content) Reason Comments Vaginal Bleeding Reason Comments Vaginal Bleeding 9 weeks Specialty Diagnoses / Procedures Referred By Contac t Referred To Contact Radiology Diagnoses Early stage of Procedures US OB LESS THAN 14 WEEKS SINGLE OR FIRST GESTATION Hnia Winter APRN [facility] [address] [place] [address] Referral ID Status Reason Start Date Expiration Date V isits Requested Visits Authorized [id number] Pending Review 12/09/2022 12/08/2023 1 1 Reason Comments Hypertension Specialty Diagnoses / Procedures Referred By Contac t Referred To Contact Diagnoses Preeclampsia, third trimester Procedures [place] [id number] [facility] Department of LINUX NETWORK ENGINEER-General [place] [address] [facility] [id number] [place] [phone] Referral ID Status Reason Start Date Expiration Date Visits Re quested Visits Authorized [id number] 1 1 Reason Comments Initial OB Visit Reason Onset Date Comments Care 07/16/2024 Reason Comments US Specialty Diagnoses / Procedures Referred By Contac t Referred To Contact [facility] Diagnoses 15 weeks gestation of Procedures OBSTETRIC ULTRASOUND WHI US PREG UTERUS AFTER 1ST TRIMEST GESTATION Priscilla Murphy APRN.CASE FOLDER [address] [place] [address] Phone: tel: fax: [facility] [address] [place] [address] Referral ID Status Reason Start Date Expiration Date V isits Requested Visits Authorized [id number] Closed Auto-Generate d Referral 06/10/2024 06/10/2025 1 [...] signs and symptoms of magnesium toxicity including: 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 depression, diminished DTRs, increasing muscle weakness, respirations [...] scan vaccine vial for Vaccine Record, Indications: essvzth-fxgzo-cpsxcvc vaccination methylergonovine (Methergine) injection 0.2 mg 0.2 [...] prior to administration, Tranexamic Acid Indication: Hemorrhage: LINUX NETWORK ENGINEER witch sarika (Tucks) pads 1 each 1 [...] section and content) DATE CREATED AUTHOR 10/19/2020 [facility] DATE CREATED AUTHOR AUTHOR'S ORGANIZ ATION 12/13/2022 [facility] DATE CREATED AUTHOR AUTHOR'S ORGANIZ ATION 05/13/2023 [facility] DATE CREATED AUTHOR AUTHOR'S ORGANIZ ATION 07/16/2023 [facility] DATE CREATED AUTHOR AUTHOR'S ORGANIZ ATION 05/18/2024 [facility] DATE CREATED AUTHOR AUTHOR'S ORGANIZ ATION 10/11/2024 [facility] DATE CREATED AUTHOR AUTHOR'S ORGANIZ ATION 11/14/2024 [facility] DATE CREATED AUTHOR AUTHOR'S ORGANIZ ATION 11/15/2024 [facility] DATE CREATED AUTHOR AUTHOR'S ORGANIZ ATION 11/17/2024 [facility] Care Teams (unrecognized sec tion and content) Repair Clerk Relationship Specialty Start Date End Date Cortney Quinones, ILANA [address] [place] [address] PCP - General Physician Tank Systems Maintainer 10/11/19 Repair Clerk Relationship Specialty Start Date End Date Alycia Vicente APRN-CNM [id number] [facility] Department [place] [address] Pharmacy Operations Manager Obstetrics and Gynecology 06/19/23 Repair Clerk Relationship Specialty Start Date End Date Generic Provider, No Assigned [place], [place] [address] PCP - General Mattress Maker 10/06/24 Alycia Vicente APRN-KARUNA [id number] [facility]/[place] [address] Pharmacy Operations Manager Obstetrics and Gynecology 06/19/23 Repair Clerk Relationship Specialty Start Date End Date Generic Provider, No Assigned [place], [place] [address] PCP - General Mattress Maker 10/06/24 Alycia Vicente APRN-KARUNA [id number] [facility] [address] Pharmacy Operations Manager Obstetrics and Gynecology 06/19/23 Repair Clerk Relationship Specialty Start Date End Date Generic Provider, No Assigned P[place], [place] [address] PCP - General Mattress Maker 10/06/24 Alycia Vicente APRN-KARUNA [id number] [facility] [place] [address] Pharmacy Operations Manager Obstetrics and Gynecology 06/19/23 Source Comments (unrecognize d section and content) In the event this informatio n is protected by the Federal Confidentiality of Alcohol and Drug Abuse Patient Records regulations: The Federal rules restrict any use of the information to criminally investigate or prosecute any alcohol or drug abuse patient.[facility] the event this information is protected by the Federal Confidentiality of Alcohol and Drug Abuse Patient Records regulations: The Federal rules restrict any use of the information to criminally investigate or prosecute any alcohol or drug abuse patient.[facility] CenterIn the event this information is protected by the Federal Confidentiality of Alcohol and Drug Abuse Patient Records regulations: The Federal rules restrict any use of the information to criminally investigate or prosecute any alcohol or drug abuse patient.[facility] CenterIn the event this information is protected by the Federal Confidentiality of Alcohol and Drug Abuse Patient Records regulations: The Federal rules restrict any use of the information to criminally investigate or prosecute any alcohol or drug abuse patient.[facility] CenterIn the event this information is protected by the Federal Confidentiality of Alcohol and Drug Abuse Patient Records regulations: The Federal rules restrict any use of the information to criminally investigate or prosecute any alcohol or drug abuse patient.[facility] CenterIn the event this information is protected by the Federal Confidentiality of Alcohol and Drug Abuse Patient Records regulations: The Federal rules restrict any use of the information to criminally investigate or prosecute any alcohol or drug abuse patient.[facility] CenterIn the event this information is protected by the Federal Confidentiality of Alcohol and Drug Abuse Patient Records regulations: The Federal rules restrict any use of the information to criminally investigate or prosecute any alcohol or drug abuse patient.[facility] CenterIn the event this information is protected by the Federal Confidentiality of Alcohol and Drug Abuse Patient Records regulations: The Federal rules restrict any use of the information to criminally investigate or prosecute any alcohol or drug abuse patient.[facility] CenterIn the event this information is protected by the Federal Confidentiality of Alcohol and Drug Abuse Patient Records regulations: The Federal rules restrict any use of the information to criminally investigate or prosecute any alcohol or drug abuse patient.[facility] CenterIn the event this information is protected by the Federal Confidentiality of Alcohol and Drug Abuse Patient Records regulations: The Federal rules restrict any use of the information to criminally investigate or prosecute any alcohol or drug abuse patient.[facility] CenterIn the event this information is protected by the Federal Confidentiality of Alcohol and Drug Abuse Patient Records regulations: The Federal rules restrict any use of the information to criminally investigate or prosecute any alcohol or drug abuse patient.[facility] CenterIn the event this information is protected by the Federal Confidentiality of Alcohol and Drug Abuse Patient Records regulations: The Federal rules restrict any use of the information to criminally investigate or prosecute any alcohol or drug abuse patient.[facility] CenterIn the event this information is protected by the Federal Confidentiality of Alcohol and Drug Abuse Patient Records regulations: The Federal rules restrict any use of the information to criminally investigate or prosecute any alcohol or drug abuse patient.[facility] CenterIn the event this information is protected by the Federal Confidentiality of Alcohol and Drug Abuse Patient Records regulations: The Federal rules restrict any use of the information to criminally investigate or prosecute any alcohol or drug abuse patient.[facility] CenterIn the event this information is protected by the Federal Confidentiality of Alcohol and Drug Abuse Patient Records regulations: The Federal rules restrict any use of the information to criminally investigate or prosecute any alcohol or drug abuse patient.[facility] CenterIn the event this information is protected by the Federal Confidentiality of Alcohol and Drug Abuse Patient Records regulations: The Federal rules restrict any use of the information to criminally investigate or prosecute any alcohol or drug abuse patient.[facility] CenterIn the event this information is protected by the Federal Confidentiality of Alcohol and Drug Abuse Patient Records regulations: The Federal rules restrict any use of the information to criminally investigate or prosecute any alcohol or drug abuse patient.[facility] CenterIn the event this information is protected by the Federal Confidentiality of Alcohol and Drug Abuse Patient Records regulations: The Federal rules restrict any use of the information to criminally investigate or prosecute any alcohol or drug abuse patient.[facility] FOR RECORDS PERTAINING TO PATIENTS WHO ARE [...] BE BASED ON THE PRIMARY CLINICAL RECORDS. [employer] [facility]. provides no warranty or guarantee of the accuracy or completeness of information in this document.
--- NOTE | 2024-11-19 06:13 | HP.PCM.OB_ITS ---
HPI - General General Date of Admission: 11/19/24 Date of Service: 11/19/24 Chief Complaint: contractions HPI Narrative MARYANA BERRY, is a 19 F who presents with contractions and 5 cm per nurse staff industrial. [facility] Medical History (Updated 11/19/24 @ 06:[address] Yenny De La Torre DO) Gallstones Preeclampsia Home Medications ?Medication ?Instructions ?Recorded ?Last Taken ?Type vit no.95-ferrous 1 tab PO DAILY 07/18/2402/27 History fumarate 28 mg-folic acid 800 mcg tablet () Allergy/AdvReac Type Severity Reaction Status Date / Time bee venom protein (honey Allergy Severe Anaphylaxis Verified 11/18/24 23:59 bee) (bee sting) Sulfa (Sulfonamide Allergy Severe Anaphylaxis Verified 11/18/24 23:59 Antibiotics) Social History household members: family and children Smoking Status: Never smoker NST FHR Rate Baby A Baseline: 130 Variability:: Moderate Accelerations:: 15 x 15 Decelerations:: None NST Reactive:: Yes FHR Category:: Category I Vital Signs Vital Signs Vital Signs: Weight Weight: 177 lb 11.081 oz Body Mass Index (BMI) 30.4 Labs Labs Labs: Hct 22.2 % (37-47) L Hgb 7.4 g/dL (12.0-15.0) L Assessment & Plan (1) 38 weeks gestation of : (2) Uterine contractions: PLAN: Admit for routine intrapartum care. GBS negative. Expected EFW < 4500 grams. Pelvis adequate. Anticipate vaginal delivery (3) Anemia affecting : PLAN: May need IV iron (4) History of pre-eclampsia: (5) Late care affecting : (6) SROM (spontaneous rupture of membranes):
[2024-11-19 06:19] LABS: ROM Internal Control Test YES-OK TO RESULT pt. (Internal QC)
[2024-11-19 06:20] LABS: ROM Patient Test POSITIVE (Negative); Record Kit Lot#, ROM+ K3358
--- OUTSIDE RECORDS SUMMARY | 2024-11-19 06:28 | XMS RPT_ITS | CCD ---
Author Organization [facility] Care Team Providers Care Oracle E Business Developer Name Role Phone Cortney Quiroz Primary Care Provider [phone] CORTNEY QUINONES Primary Care Unavailable ALEXANDRE CASILLAS Attending Unavailable ALEXANDRE CASILLAS Attending Unavailable CORTNEY QUINONES Primary Care Unavailable Cortney Quiroz Primary Care Provider None, No PCP Unavailable Unavailable Unavailable Unavailable VIDA FRAIRE Attending Unavailable CORTNEY QUINONES Primary Care Unavailable CORTNEY QUINONES Primary Care Unavailable HINA WINTER Referring Unavailable Unavailable Primary Care Provider Unavailabl e Schwochow POWDER CUTTING OPERATOR-CNM, Alycia R Unavailable ALYCIA VICENTE Attending Unavailable [...] Unavailable Primary Care Provider Unavailabl e Schwochow POWDER CUTTING OPERATOR-CNM, Alycia R Unavailable [phone] Generic Provider MD, No Assigned Pcp Primary [...] sources) bee venom Substance Allergy [address] [facility] Sulfonamides (antibiotic) (3 sources) Sulfonamides (Antibiotic) Drug Allergy 9 [facility] (20 sources) bee venom Propensity to adverse reactions to drug 9 Swelling, [facility]aphylaxis [facility] ([facility] sources) Sulfonamides (Antibiotic) Propensity to adverse reactions to drug 9 Swelling, Hives [facility] (3 sources) apis mellifera venom Allergy to substance (finding) [facility]N [facility] [place] [address] M DO Work Phone: (3 sources) Sulfamethoxazole ; Translations: [sulfa] Drug Allergy MG-OBGYN [facility] [place] [address] M DO Work Phone: (5 sources) Sulfonamides (Antibiotic); Translations: [SULFA (SULFONAMIDE ANTIBIOTICS)] Propensity to adverse reactions to drug (disorder) 9 [facility] 3 Repository (4 sources) BEE VENOM PROTEIN (HONEY BEE); Translations: [BEE VENOM PROTEIN (HONEY BEE)] Propensity to adverse reactions to drug (disorder) 4 [facility] 3 Repository (1 source) VENOM-HONEY BEE; Translations: [VENOM-HONEY BEE] Propensity to adverse reactions to drug (disorder) 9 [facility] Repository Medications Current Medications Medication Drug Class(es) [...] signs and symptoms of magnesium toxicity including: SENIOR FRONT END DEVELOPER depression, diminished DTRs, increasing muscle weakness, respirations [...] 24 hr tablet Indications: Preeclampsia, third trimester ([facility]) Take 1 tablet (90 mg) by mouth [...] split. Start: 06-15-2023 take 1 capsule by [facility] once as needed for hypertension 10 mg, [...] sodium chloride 0.9% 30 units/500 mL PNV no.882-EO-ef7-dha-epa-fi sh ( GUMMIES) 400 mcg-35 mg- 25 mg-5 mg chew (18 sources) PNV no.517-VL-wo0-rhp-hhs-sxmv ( GUMMIES) 400 mcg-35 mg- 25 mg-5 mg chew Take 1 Piece by mouth once daily. Active polyethylene glycol 3350 170 00 mg powder for oral solution (1 source) Osmotic Laxative Star t: 06-05 24 17 g, oral, 2 times daily PRN, constipation, first line, Starting on Mon06/15/23 at 0900 Reubreqy-Zug-Cm-FA (PRE-VIET FORMULA) TABS (4 sources) Star t: 06- 23 take 1 tablet by mouth once daily Jvqgnjmc-Xwb-Ee-FA (PRE-VIET FORMULA) TABS Indications: at early stage Take 1 tablet by mouth daily 30 tablet 1 11/08/2022 Active Start: 09-30-2020 take 1 tablet by manuel th once daily Hmejyvkr-Xmq-Qs-FA (PRE- FORMULA) TABS Indications: Missed period , [...] prior to administration Tranexamic Acid Indication: Hemorrhage: 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 sarika 500 mg/ml medicated pad (1 [...] the puerperium; 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 Other complications of (1 [...] of ; Translations: [37 weeks gestation of ([facility])] Onset: 11-12-2024 Episodic Residual codes; unclassified (1 source) 36 weeks gestation of ; Translations: [36 weeks gestation of ([facility])] Onset: 11-04-2024 Episodic Residual codes; unclassified (1 source) 34 weeks gestation of ; Translations: [34 weeks gestation of ([facility])] Onset: 10-21-2024 Episodic Residual codes; unclassified (1 [...] B/Oon Glucose Ql (U) Negative Neg mg/dL [facility] Interpretation and review of laboratory results Normal [facility] Protein.monoclonal (U) [Mass/Vol] Negative Neg mg/dL [facility] CBC W Auto Differential pane l (Bld)on 11-12-2024 Basophils (Bld) [#/Vol] 0.05 10*3/uL [facility] Basophils/100 WBC (Bld) 0.4 % 0.0 - 2.0 % [facility] Eosinophils (Bld) [#/Vol] 0.14 10*3/uL [facility] Eosinophils/100 WBC (Bld) 1.1 % 0.0 - 6.0 % [facility] Erythrocyte distribution width (RBC) [Ratio] 13.5 % 11.5 - 14.5 % [facility] Hematocrit (Bld) [Volume fraction] 26.3 % Low 36.0 - 46.0 % [facility] Hemoglobin (Bld) [Mass/Vol] 8.2 g/dL Low 12.0 - 16.0 g/dL [facility] Immature granulocytes (Bld) [#/Vol] 0.11 10*3/uL [facility] Immature granulocytes/100 WBC (Bld) 0.9 % 0.0 - 0.9 % [facility] Comment on above: Immature Granulocyte Count (IG) includes promyelocytes, myelocytes and metamyelocytes but does not include bands. Percent differential counts (%) should be interpreted in the context of the absolute cell counts (cells/UL). Interpretation and review of laboratory results Abnormal [facility] Lymphocytes (Bld) [#/Vol] 2.75 10*3/uL [facility] Lymphocytes/100 WBC (Bld) 22.4 % 13.0 - 44.0 % [facility] MCH (RBC) [Entitic mass] 24.7 pg Low 26.0 - 34.0 pg [facility] MCHC (RBC) [Mass/Vol] 31.2 g/dL Low 32.0 - 36.0 g/dL [facility] MCV (RBC) [Entitic vol] 79 fL Low 80 - 100 fL [facility] Monocytes (Bld) [#/Vol] 0.77 10*3/uL [facility] Monocytes/100 WBC (Bld) 6.3 % 2.0 - 10.0 % [facility] Neutrophils (Bld) [#/Vol] 8.46 10*3/uL High [facility] Comment on above: Percent differential counts (%) should be interpreted in the context of the absolute cell counts (cells/uL). Neutrophils/100 WBC (Bld) 68.9 % 40.0 - 80.0 % [facility] Nucleated RBC/100 WBC (Bld) [Ratio] 0 % [facility] Platelets (Bld) [#/Vol] 234 10*3/uL [facility] RBC (Bld) [#/Vol] 3.32 10*6/uL Low [facility] WBC (Bld) [#/Vol] 12.3 10*3/uL High [facility] Basophils (Bld) [#/Vol] 0.05 x10*3/uL Normal 0.00-0.10 [facility] Comment on above: Performed By: #### 5 7021-8 #### MELLO TOWNSEND ([id number]) [facility] ([facility]) [address] [place] [address] 46854 Basophils/100 WBC (Bld) 0.4 % Normal 0.0-2.0 [facility] Comment on above: Performed By: #### 5 7021-8 #### MELLO TOWNSEND ([id number]) [facility] ([facility]) [address] [place] [address] 18666 Eosinophils (Bld) [#/Vol] 0.14 x10*3/uL Normal 0.00-0.70 [facility] Comment on above: Performed By: #### 5 7021-8 #### MELLO TOWNSEND ([id number]) [facility] ([facility]) [address] [place] [address] 05809 Eosinophils/100 WBC (Bld) 1.1 % Normal 0.0-6.0 [facility] Comment on above: Performed By: #### 5 7021-8 #### MELLO TOWNSEND ([id number]) [facility] ([facility]) [address] [place] [address] 70729 Erythrocyte distribution width (RBC) [Ratio] 13.5 % Normal 11.5-14.5 [facility] Comment on above: Performed By: #### 5 7021-8 #### MELLO TOWNSEND ([id number]) [facility] ([facility]) [address] [place] [address] 31054 Hematocrit (Bld) [Volume fraction] 26.3 % Low 36.0-46.0 [facility] Comment on above: Performed By: #### 5 7021-8 #### MELLO TOWNSEND ([id number]) [facility] ([facility]) [address] [place] [address] 15358 Hemoglobin (Bld) [Mass/Vol] 8.2 g/dL Low 12.0-16.0 [facility] Comment on above: Performed By: #### 5 7021-8 #### MELLO TOWNSEND ([id number]) [facility] ([facility]) [address] [place] [address] 13595 Immature granulocytes (Bld) [#/Vol] 0.11 x10*3/uL Normal 0.00-0.70 [facility] Comment on above: Performed By: #### 5 7021-8 #### MELLO TOWNSEND ([id number]) [facility] ([facility]) [address] [place] [address] 39769 Immature granulocytes/100 WBC (Bld) 0.9 % Normal 0.0-0.9 [facility] Comment on above: Result Comment: Sheila ture Granulocyte Count (IG) includes promyelocytes, myelocytes and metamyelocytes but does not include bands. Percent differential counts (%) should be interpreted in the context of the absolute cell counts (cells/UL). Performed By: #### 5 7021-8 #### MELLO TOWNSEND ([id number]) [facility] ([facility]) [address] [place] [address] 96406 Lymphocytes (Bld) [#/Vol] 2.75 x10*3/uL Normal 1.20-4.80 [facility] Comment on above: Performed By: #### 5 7021-8 #### MELLO TOWNSEND ([id number]) [facility] ([facility]) [address] [place] [address] 77624 Lymphocytes/100 WBC (Bld) 22.4 % Normal 13.0-44.0 [facility] Comment on above: Performed By: #### 5 7021-8 #### MELLO TOWNSEND ([id number]) [facility] ([facility]) [address] [place] [address] 92835 MCH (RBC) [Entitic mass] 24.7 pg Low 26.0-34.0 [facility] Comment on above: Performed By: #### 5 7021-8 #### MELLO TOWNSEND ([id number]) [facility] ([facility]) [address] [place] [address] 39600 MCHC (RBC) [Mass/Vol] 31.2 g/dL Low 32.0-36.0 [facility] Comment on above: Performed By: #### 5 7021-8 #### MELLO TOWNSEND ([id number]) [facility] ([facility]) [address] [place] [address] MCV (RBC) [Entitic vol] 79 fL Low 80-100 [facility] Comment on above: Performed By: #### 5 7021-8 #### MELLO TOWNSEND ([id number]) [facility] ([facility]) [address] [place], [place] [id number] Monocytes (Bld) [#/Vol] 0.77 x10*3/uL Normal 0.10-1.00 [facility] Comment on above: Performed By: #### 5 7021-8 #### MELLO TOWNSEND ([id number]) [facility] ([facility]) [address] [place] [address] 65383 Monocytes/100 WBC (Bld) 6.3 % Normal 2.0-10.0 [facility] Comment on above: Performed By: #### 5 7021-8 #### MELLO TOWNSEND ([id number]) [facility] ([facility]) [address] [place] [address] 18078 Neutrophils (Bld) [#/Vol] 8.46 x10*3/uL High 1.20-7.70 [facility] Comment on above: Result Comment: Perc ent differential counts (%) should be interpreted in the context of the absolute cell counts (cells/uL). Performed By: #### 5 7021-8 #### MELLO TOWNSEND ([id number]) [facility] ([facility]) [address] [place] [address] 02558 Neutrophils/100 WBC (Bld) 68.9 % Normal 40.0-80.0 [facility] Comment on above: Performed By: #### 5 7021-8 #### MELLO TOWNSEND ([id number]) [facility] ([facility]) [address] [place] [address] 90712 Nucleated RBC/100 WBC (Bld) [Ratio] 0.0 /100 WBCs Normal 0.0-0.0 [facility] Comment on above: Performed By: #### 5 7021-8 #### MELLO TOWNSEND ([id number]) [facility] ([facility]) [address] [place] [address] 92978 Platelets (Bld) [#/Vol] 234 x10*3/uL Normal 150-450 [facility] Comment on above: Performed By: #### 5 7021-8 #### MELLO TOWNSEND ([id number]) [facility] ([facility]) [address] [place] [address] 42466 RBC (Bld) [#/Vol] 3.32 x10*6/uL Low 4.00-5.20 [facility] Comment on above: Performed By: #### 5 7021-8 #### MELLO TOWNSEND ([id number]) [facility] ([facility]) [address] [place] [address] 87543 WBC (Bld) [#/Vol] 12.3 x10*3/uL High 4.4-11.3 [facility] Comment on above: Performed By: #### 5 7021-8 #### MELLO TOWNSEND ([id number]) [facility] ([facility]) [address] [place] [address] ANGIO CHEST FOR PULMONARY EMBOLISMon 11-12-2024 CT ANGIO CHEST FOR PULMONARY EMBOLISM Interpreted By: Matt Osborn, STUDY: CT ANGIO CHEST FOR PULMONARY EMBOLISM; 11/12/2024 5:59 pm INDICATION: Signs/Symptoms:lighthead ed, right rib pain. COMPARISON: 10/06/2024 ACCESSION NUMBER(S): [id number] ORDERING CLINICIAN: MITRA HASTINGS TECHNIQUE: Helical data [...] Matt Osborn 11/12/2024 6:23 PM Dictation workstation: [id number] [facility] CT Chest W contrast IV and C T angiogram Pulmonary arteries for pulmonary embolus W contrast Johanna 11-12-2024 No evidence of pulmo nary embolism. Cholelithiasis. Signed by: Matt Osborn 11/12/2024 6:23 PM Dictation workstation: [id number] Interpreted By: Matt Osborn, STUDY: CT ANGIO CHEST FOR PULMONARY EMBOLISM; 11/12/2024 5:59 pm INDICATION: Signs/Symptoms:lighthead ed, right rib pain. COMPARISON: 10/06/2024 ACCESSION NUMBER(S): [id number] ORDERING CLINICIAN: MITRA HASTINGS TECHNIQUE: Helical data [...] right rib pain. COMPARISON: 10/06/2024 ACCESSION NUMBER(S): [id number] ORDERING CLINICIAN: MITRA HASTINGS TECHNIQUE: Helical data [...] Matt Osborn 11/12/2024 6:23 PM Dictation workstation: [id number] [facility] Work Phone: Radiology Study observation (narrative) [facility] Work Phone: CT Chest W contrast IV and C T angiogram Pulmonary arteries for pulmonary embolus W contrast IVOrdered By: Matt Osborn on 11-12-2024 [facility] Work Phone: Coagulation surface inducedo n 11-12-2024 aPTT Coag (PPP) [Time] 22 s Low 26-36 [facility] Comment on above: Order Comment: The V TE Exclusion D-Dimer assay is reported in ng/mL Fibrinogen Equivalent Units (FEU). Per medical case manager's instructions for use, a value of less [...] By: #### 4 8065-7 #### SARKAR KRISTIAN ([id number]) [facility] ([facility]) [address] [place] [address] Coagulation tissue factor in ducedon 11-12-2024 PT Coag (PPP) [Time] 10.5 s Normal 9.8-12.4 [facility] Comment on above: Performed By: #### 4 8065-7 #### SARKAR KRISTIAN ([id number]) [facility] ([facility]) [facility] [place] [id number] Comprehensive metabolic 2000 panelon 11-12-2024 Albumin BCP dye [Mass/Vol] 3.2 g/dL Low 3.4 - 5.0 g/dL [facility] ALP [Catalytic activity/Vol] 280 U/L High 33 - 110 U/L [facility] ALT With P-5'-P [Catalytic activity/Vol] 12 U/L 7 - 45 U/L [facility] Comment on above: Patients treated wit h Sulfasalazine may generate falsely decreased results for ALT. Anion gap [Moles/Vol] 12 mmol/L 10 - 20 mmol/L [facility] AST With P-5'-P [Catalytic activity/Vol] 22 U/L 9 - 39 U/L [facility] Comment on above: MILD HEMOLYSIS DETEC SYLVIE. The result may be falsely elevated due to hemolysis or other interferents. Clinical correlation is recommended. Repeat testing may be considered. Bilirubin [Mass/Vol] 0.4 mg/dL 0.0 - 1 .2 mg/dL [facility] Calcium [Mass/Vol] 8.9 mg/dL 8.6 - 10. 3 mg/dL [facility] Chloride [Moles/Vol] 103 mmol/L 98 - 10 7 mmol/L [facility] CO2 [Moles/Vol] 23 mmol/L 21 - 32 mmol/L [facility] Creatinine [Mass/Vol] 0.55 mg/dL 0.50 - 1.05 mg/dL [facility] eGFR - PINF [facility] Comment on above: Calculations of andrey mated GFR are performed using the 2020 CKD-EPI Study Refit equation without the race variable for the IDMS-Traceable creatinine methods. https://jasn.asnjournals.org/content/early//ASN.3942274 988 Glucose [Mass/Vol] 86 mg/dL 74 - 99 mg/dL [facility] Interpretation and review of laboratory results Abnormal [facility] Potassium [Moles/Vol] 4 mmol/L 3.5 - 5.3 mmol/L [facility] Comment on above: MILD HEMOLYSIS DETEC SYLVIE. The result may be falsely elevated due to hemolysis or other interferents. Clinical correlation is recommended. Repeat testing may be considered. Protein [Mass/Vol] 7 g/dL 6.4 - 8.2 g/dL [facility] Sodium [Moles/Vol] 134 mmol/L Low 136 - 145 mmol/L [facility] Urea nitrogen [Mass/Vol] 8 mg/dL 6 - 23 mg/dL [facility] Albumin BCP dye [Mass/Vol] 3.2 g/dL Low 3.4-5.0 [facility] Comment on above: Performed By: #### 4 8065-7 #### MELLO TOWNSEND ([id number]) [facility] ([facility]) [address] [place] [address] ALP [Catalytic activity/Vol] 280 U/L High 33-110 [facility] Comment on above: Performed By: #### 4 8065-7 #### MELLO TOWNSEND ([id number]) [facility] ([facility]) [address] [place] [address] 15375 ALT With P-5'-P [Catalytic activity/Vol] 12 U/L Normal 7-45 [facility] Comment on above: Result Comment: Zaira ents treated with Sulfasalazine may generate falsely decreased results for ALT. Performed By: #### 4 8065-7 #### MELLO TOWNSEND ([id number]) [facility] ([facility]) [address] [place] [address] 98689 Anion gap [Moles/Vol] 12 mmol/L Normal 10-20 [facility] Comment on above: Performed By: #### 4 8065-7 #### MELLO TOWNSEND ([id number]) [facility] ([facility]) [address] [place] [address] 45253 AST With P-5'-P [Catalytic activity/Vol] 22 U/L Normal 9-39 [facility] Comment on above: Result Comment: MILD HEMOLYSIS DETECTED. The result may be falsely elevated due to hemolysis or other interferents. Clinical correlation is recommended. Repeat testing may be considered. Performed By: #### 4 8065-7 #### MELLO TOWNSEND ([id number]) [facility] ([facility]) [address] [place] [address] Bilirubin [Mass/Vol] 0.4 mg/dL Normal 0.0-1.2 [facility] Comment on above: Performed By: #### 4 8065-7 #### MELLO TOWNSEND ([id number]) [facility] ([facility]) [address] [place] [address] 54212 Calcium [Mass/Vol] 8.9 mg/dL Normal 8.6-10.3 [facility] Comment on above: Performed By: #### 4 8065-7 #### MELLO TOWNSEND ([id number]) [facility] ([facility]) [address] [place] [address] Chloride [Moles/Vol] 103 mmol/L Normal 98-107 [facility] Comment on above: Performed By: #### 4 8065-7 #### MELLO TOWNSEND ([id number]) [facility] ([facility]) [address] [place] [address] CO2 [Moles/Vol] 23 mmol/L Normal 21-32 [facility] Comment on above: Performed By: #### 4 8065-7 #### MELLO TOWNSEND ([id number]) [facility] ([facility]) [address] [place] [address] Creatinine [Mass/Vol] 0.55 mg/dL Normal 0.50-1.05 [facility] Comment on above: Performed By: #### 4 8065-7 #### MELLO TOWNSEND ([id number]) [facility] ([facility]) [address] [place] [address] GFR/1.73 sq M.predicted MDRD (S/P/Bld) [Vol rate/Area] mL/min/{1.73_m2} Normal >60 [facility] Comment on above: Result Comment: Calc ulations of estimated GFR are performed using the 2020 CKD-EPI Study Refit equation without the race variable for the IDMS-Traceable creatinine methods. https://jasn.asnjournals.org/content//ASN.3715742 988 Performed By: #### 4 8065-7 #### MELLO TOWNSEND ([id number]) [facility] ([facility]) [address] [place] [address] 94496 Glucose [Mass/Vol] 86 mg/dL Normal 74-99 [facility] Comment on above: Performed By: #### 4 8065-7 #### MELLO TOWNSEND ([id number]) [facility] ([facility]) [address] [place] [address] 85799 Potassium [Moles/Vol] 4.0 mmol/L Normal 3.5-5.3 [facility] Comment on above: Result Comment: MILD HEMOLYSIS DETECTED. The result may be falsely elevated due to hemolysis or other interferents. Clinical correlation is recommended. Repeat testing may be considered. Performed By: #### 4 8065-7 #### MELLO TOWNSEND ([id number]) [facility] ([facility]) [address] [place] [address] 92372 Protein [Mass/Vol] 7.0 g/dL Normal 6.4-8.2 [facility] Comment on above: Performed By: #### 4 8065-7 #### MELLO TOWNSEND ([id number]) [facility] ([facility]) [address] [place] [address] 68520 Sodium [Moles/Vol] 134 mmol/L Low 136-145 [facility] Comment on above: Performed By: #### 4 8065-7 #### MELLO TOWNSEND ([id number]) [facility] ([facility]) [address] [place] [address] 61404 Urea nitrogen [Mass/Vol] 8 mg/dL Normal 6-23 [facility] Comment on above: Performed By: #### 4 8065-7 #### MELLO TOWNSEND ([id number]) [facility] ([facility]) [address] [place] [address] D-Dimer, VTE Exclusionon Fibrin D-dimer FEU (PPP) [Mass/Vol] 1887 High NINF [facility] ECG 12-LEADon 11-12-2024 ECG 12-LEAD Ventricular Rate 94 Atrial Rate 94 P-R Interval 122 QRS Duration 86 Q-T Interval 328 QTC Calculation(Bazett) 410 P [place] 71 R [place] 91 T [place] 36 QRS Count 15 Q Onset 218 P Onset 157 P Offset 203 T Offset 382 QTC Fredericia 381 Diagnosis Normal sinus rhythm Rightward axis Borderline ECG When compared with ECG of 06-OCT-2024 16:46, No significant change was found See ED provider note for full interpretation and clinical correlation Confirmed by Mitra Rice ([id number]) on 11/13/2024 7:04:18 PM Normal [facility] Fibrin D-dimer FEUon 025 Fibrin D-dimer FEU (PPP) [Mass/Vol] 1887 ng/mL FEU High <=500 [facility] Comment on above: Order Comment: The V TE Exclusion D-Dimer assay is reported in ng/mL Fibrinogen Equivalent Units (FEU). Per medical case manager's instructions for use, a value of less [...] By: #### 4 8065-7 #### MELLO TOWNSEND ([id number]) [facility] ([facility]) [facility] [place] [address] Fibrin D-dimer FEU (PPP) [Ma ss/Vol]on 11-12-2024 The VTE Exclusion D-Dimer assay is reported in ng/mL Fibrinogen Equivalent Units (FEU). Per medical case manager's instructions for use, a value of less [...] assessment model for DVT or PE exclusion.) [facility] Lipaseon 11-12-2024 Lipase [Catalytic activity/Vol] 18 U/L 9 - 82 U/L [facility] Lipase [Catalytic activity/V ol]on 11-12-2024 Interpretation and review of laboratory results Normal [facility] Venipuncture immedia tely after or during the administration of Metamizole may lead to falsely low results. Testing should be performed immediately prior to Metamizole dosing. [facility] Magnesiumon 11-12-2024 Magnesium [Mass/Vol] 1.87 mg/dL 1.60 - 2.40 mg/dL [facility] Magnesium [Mass/Vol] 1.87 mg/dL Normal 1.60-2.40 [facility] Comment on above: Performed By: #### 4 8065-7 #### MELLO TOWNSEND ([id number]) [facility] ([facility]) [address] [place] [address] Magnesium [Mass/Vol]on 11-12 Interpretation and review of laboratory results Normal [facility] No Panel Informationon 11-12 [facility] Interpretation and review of laboratory results Abnormal [facility] PT Coag (PPP) [Time]on 11-12 INR Coag (PPP) [Relative time] 0.9 {INR} 0.9 - 1.1 [facility] Interpretation and review of laboratory results Normal [facility] INR Coag (PPP) [Relative time] 0.9 Normal 0.9-1.1 [facility] Comment on above: Performed By: #### 4 8065-7 #### MELLO TOWNSEND ([id number]) [facility] ([facility]) [address] [place], [place] [address] Protime-INRon 11-12-2024 PT Coag (PPP) [Time] 10.5 s [facility] Triacylglycerol lipaseon Lipase [Catalytic activity/Vol] 18 U/L Normal 9-82 [facility] Comment on above: Order Comment: The V TE Exclusion D-Dimer assay is reported in ng/mL Fibrinogen Equivalent Units (FEU). Per medical case manager's instructions for use, a value of less [...] By: #### 4 8065-7 #### SARKAR KRISTIAN ([id number]) [facility] ([facility]) [address] [place] [address] Tropinin I.cardiac panel Hig h sensitivity methodon 11-12-2024 Interpretation and review of laboratory results Normal [facility] Less than 99th percentile of normal range [...] performed using a different testing methodology at [facility] than at other [facility]. Direct result comparisons should only be made within the same method. [facility] Interpretation and review of laboratory results Normal [facility] Less than 99th percentile of normal range [...] performed using a different testing methodology at [facility] than at other [facility]. Direct result comparisons should only be made within the same method. [facility] Troponin I, High Sensitivity , Initialon 11-12-2024 Tropinin I.cardiac panel High sensitivity method 9 ng/L 0 - 13 ng/L [facility] Troponin I.cardiac panelon 0 11-12-2024 Tropinin I.cardiac panel High sensitivity method 5 ng/L Normal 0-13 [facility] Comment on above: Order Comment: The V TE Exclusion D-Dimer assay is reported in ng/mL Fibrinogen Equivalent Units (FEU). Per medical case manager's instructions for use, a value of less [...] By: #### 4 8065-7 #### SARKAR KRISTIAN ([id number]) [facility] ([facility]) [address] [place] [address] Tropinin I.cardiac panel High sensitivity method 9 ng/L Normal 0-13 [facility] Comment on above: Order Comment: The V TE Exclusion D-Dimer assay is reported in ng/mL Fibrinogen Equivalent Units (FEU). Per medical case manager's instructions for use, a value of less [...] By: #### 4 8065-7 #### SARKAR KRISTIAN ([id number]) [facility] ([facility]) [address] [place] [address] Troponin, High Sensitivity, 1 Houron 11-12-2024 Tropinin I.cardiac panel High sensitivity method 5 ng/L 0 - 13 ng/L [facility] aPTTon 11-12-2024 aPTT Coag (PPP) [Time] 22 s Low [facility] aPTT Coag (PPP) [Time]on The APTT is no longe r used for monitoring Unfractionated Heparin Therapy. For monitoring Heparin Therapy, use the Heparin Assay. [facility] CNPNon 11-08-2024 CNPN Telephone (OBGYWM) -------- MARYANA WILLIAM ([id number]) 1 F Date Time Provider Department 11/08/24 [...] to leave message because mailbox is full. [employer] message sent. SOULEYMANE Walter Trisha, RN 11/08/2024 [...] tablet by mouth once daily. - PNV no.345-EM-jl0-dha-epa-fi sh ( GUMMIES) 400 mcg-35 mg- 25 [...] third trimester *09/09/2024 [facility]10/[facility]24 Encounter Status:Closed by ANAYELI MURRY on 11/08/24 Normal [facility] ROUTINE, GROUP B ST REPTOCOCCUS BY PCRon 11-04-2024 ROUTINE, GROUP B STREPTOCOCCUS BY PCR Not detected Normal [facility] Comment on above: Performed By: #### T SPN #### CC MAIN BLOOD BANK [facility] [id number] [address] [place] [address] URINE OB DIP B/Oon Glucose Ql (U) Negative Neg mg/dL [facility] Interpretation and review of laboratory results Normal [facility] Protein.monoclonal (U) [Mass/Vol] Negative Neg mg/dL [facility] CNPNon 10-25-2024 CNPN Telephone (OBGYWM) -------- MARYANA WILLIAM ([id number]) 1 F Date Time Provider Department 10/25/24 ANAYELI MRURY OBJENNIFERWM During your visit today, we recorded [...] tablet by mouth once daily. - PNV no.932-DU-oa8-dha-epa-fi sh ( GUMMIES) 400 mcg-35 mg- 25 [...] Encounter Status:Closed by ANAYELI MURRY [facility] (OBGYWM) -------- MARYANA WILLIAM ([id number]) 1 F Date Time Provider Department 10/24/24 [...] tablet by mouth once daily. - PNV no.302-LJ-nh0-dha-epa-fi sh ( GUMMIES) 400 mcg-35 mg- 25 mg-5 mg chew Take 1 Piece by mouth once daily. Meds Comments as of 02/06/2009: No current meds, reviewed 02/06/2009. Pily Zavala [facility] Problem List As Of Date 10/24/2024 Noted Resolved ECZEMA [L25.8] Supervision of high risk , antepartum *06/10/2024 Late care affecting in secon*06/10/2024 Hx of pre-eclampsia in prior , current*06/2023 Anemia complicating , third trimester *09/09/2024 Pneumonia affecting in third trimeste*10/10/2024 Encounter Status:Closed by ZINA ORNELAS on 10/24/24 Normal [facility] URINE OB DIP B/Oon Glucose Ql (U) Negative Neg mg/dL [facility] Interpretation and review of laboratory results Normal [facility] Protein.monoclonal (U) [Mass/Vol] Negative Neg mg/dL [facility] CNPNon 10-07-2024 CNPN Telephone (OBGYWM) -------- MARYANA WILLIAM ([id number]) 1 F Date Time Provider Department 10/07/24 JENNIFER DE LA TORRE OBJENNIFERWDeborah During your visit today, we recorded the following information about you: Sanjuana Caceres, SOULEYMANE 10/07/2024 9:39 AM Signed Please check in on patient this morning and get an update from ER visit thanks Sanjuana Aguilar RN 10/07/2024 9:39 AM Signed 32w0d Updated Care Everywhere. Patient was seen at [facility]. See notes available in Epic now. Dx: [...] fit her schedule. Stating she went to [facility] 3 days ago, then to [facility] ER 10/06. States dx Pneumonia and given IV antibiotics. States she is feeling improvement with the shortness of breath and denies at this time. Was prescribed PO Augmentin and plans to lease picker Rx today. Advised to continue to push [...] tablet by mouth once daily. - PNV no.084-OU-zq0-dha-epa-fi sh ( GUMMIES) 400 mcg-35 mg- 25 [...] Status:Closed by SANJUANA CACERES on 10/08/24 Normal [facility] CBC W Auto Differential pane l (Bld)on 10-06-2024 Basophils (Bld) [#/Vol] 0.04 10*3/uL [facility] Basophils/100 WBC (Bld) 0.3 % 0.0 - 2.0 % [facility] Eosinophils (Bld) [#/Vol] 0.11 10*3/uL [facility] Eosinophils/100 WBC (Bld) 0.9 % 0.0 - 6.0 % [facility] Erythrocyte distribution width (RBC) [Ratio] 12.3 % 11.5 - 14.5 % [facility] Hematocrit (Bld) [Volume fraction] 29.7 % Low 36.0 - 46.0 % [facility] Hemoglobin (Bld) [Mass/Vol] 9.8 g/dL Low 12.0 - 16.0 g/dL [facility] Immature granulocytes (Bld) [#/Vol] 0.1 10*3/uL [facility] Immature granulocytes/100 WBC (Bld) 0.8 % 0.0 - 0.9 % [facility] Comment on above: Immature Granulocyte Count (IG) includes promyelocytes, myelocytes and metamyelocytes but does not include bands. Percent differential counts (%) should be interpreted in the context of the absolute cell counts (cells/UL). Interpretation and review of laboratory results Abnormal [facility] Lymphocytes (Bld) [#/Vol] 2.36 10*3/uL [facility] Lymphocytes/100 WBC (Bld) 18.3 % 13.0 - 44.0 % [facility] MCH (RBC) [Entitic mass] 27.1 pg 26.0 - 34.0 pg [facility] MCHC (RBC) [Mass/Vol] 33 g/dL 32.0 - 36.0 g/dL [facility] MCV (RBC) [Entitic vol] 82 fL 80 - 100 fL [facility] Monocytes (Bld) [#/Vol] 0.83 10*3/uL [facility] Monocytes/100 WBC (Bld) 6.4 % 2.0 - 10.0 % [facility] Neutrophils (Bld) [#/Vol] 9.46 10*3/uL High [facility] Comment on above: Percent differential counts (%) should be interpreted in the context of the absolute cell counts (cells/uL). Neutrophils/100 WBC (Bld) 73.3 % 40.0 - 80.0 % [facility] Nucleated RBC/100 WBC (Bld) [Ratio] 0 % [facility] Platelets (Bld) [#/Vol] 417 10*3/uL [facility] RBC (Bld) [#/Vol] 3.61 10*6/uL Low [facility] WBC (Bld) [#/Vol] 12.9 10*3/uL High [facility] Basophils (Bld) [#/Vol] 0.04 x10*3/uL Normal 0.00-0.10 [facility] Comment on above: Performed By: #### 5 7021-8 #### MELLO TOWNSEND ([id number]) [facility] ([facility]) [address] [place] [address]3060 Basophils/100 WBC (Bld) 0.3 % Normal 0.0-2.0 [facility] Comment on above: Performed By: #### 5 7021-8 #### MELLO TOWNSEND ([id number]) [facility] ([facility]) [address] [place] [address] 93046 Eosinophils (Bld) [#/Vol] 0.11 x10*3/uL Normal 0.00-0.70 [facility] Comment on above: Performed By: #### 5 7021-8 #### MELLO TOWNSEND ([id number]) [facility] ([facility]) [address] [place] [address] 41563 Eosinophils/100 WBC (Bld) 0.9 % Normal 0.0-6.0 [facility] Comment on above: Performed By: #### 5 7021-8 #### MELLO TOWNSEND ([id number]) [facility] ([facility]) [address] [place] [address] 67831 Erythrocyte distribution width (RBC) [Ratio] 12.3 % Normal 11.5-14.5 [facility] Comment on above: Performed By: #### 5 7021-8 #### MELLO TOWNSEND ([id number]) [facility] ([facility]) [address] [place] [address] 66977 Hematocrit (Bld) [Volume fraction] 29.7 % Low 36.0-46.0 [facility] Comment on above: Performed By: #### 5 7021-8 #### MELLO TOWNSEND ([id number]) [facility] ([facility]) [address] [place], [place] [phone] Hemoglobin (Bld) [Mass/Vol] 9.8 g/dL Low 12.0-16.0 [facility] Comment on above: Performed By: #### 5 7021-8 #### MELLO TOWNSEND ([id number]) [facility] ([facility]) [address] [place] [address] 49782 Immature granulocytes (Bld) [#/Vol] 0.10 x10*3/uL Normal 0.00-0.70 [facility] Comment on above: Performed By: #### 5 7021-8 #### MELLO TOWNSEND ([id number]) [facility] ([facility]) [address] [place] [address] 43108 Immature granulocytes/100 WBC (Bld) 0.8 % Normal 0.0-0.9 [facility] Comment on above: Result Comment: Sheila ture Granulocyte Count (IG) includes promyelocytes, myelocytes and metamyelocytes but does not include bands. Percent differential counts (%) should be interpreted in the context of the absolute cell counts (cells/UL). Performed By: #### 5 7021-8 #### MELLO TOWNSEND ([id number]) [facility] ([facility]) [address] [place] [address] 11013 Lymphocytes (Bld) [#/Vol] 2.36 x10*3/uL Normal 1.20-4.80 [facility] Comment on above: Performed By: #### 5 7021-8 #### MELLO TOWNSEND ([id number]) [facility] ([facility]) [address] [place] [address] 13318 Lymphocytes/100 WBC (Bld) 18.3 % Normal 13.0-44.0 [facility] Comment on above: Performed By: #### 5 7021-8 #### MELLO TOWNSEND ([id number]) [facility] ([facility]) [address] [place] [address] 87016 MCH (RBC) [Entitic mass] 27.1 pg Normal 26.0-34.0 [facility] Comment on above: Performed By: #### 5 7021-8 #### MELLO TOWNSEND ([id number]) [facility] ([facility]) [address] [place] [address] 21137 MCHC (RBC) [Mass/Vol] 33.0 g/dL Normal 32.0-36.0 [facility] Comment on above: Performed By: #### 5 7021-8 #### MELLO TOWNSEND ([id number]) [facility] ([facility]) [address] [place] [address] 59884 MCV (RBC) [Entitic vol] 82 fL Normal 80-100 [facility] Comment on above: Performed By: #### 5 7021-8 #### MELLO TOWNSEND ([id number]) [facility] ([facility]) [address] [place] [address] 09799 Monocytes (Bld) [#/Vol] 0.83 x10*3/uL Normal 0.10-1.00 [facility] Comment on above: Performed By: #### 5 7021-8 #### MELLO TOWNSEND ([id number]) [facility] ([facility]) [address] [place] [address] 27192 Monocytes/100 WBC (Bld) 6.4 % Normal 2.0-10.0 [facility] Comment on above: Performed By: #### 5 7021-8 #### MELLO TOWNSEND ([id number]) [facility] ([facility]) [address] [place] [address] 32452 Neutrophils (Bld) [#/Vol] 9.46 x10*3/uL High 1.20-7.70 [facility] Comment on above: Result Comment: Perc ent differential counts (%) should be interpreted in the context of the absolute cell counts (cells/uL). Performed By: #### 5 7021-8 #### MELLO TOWNSEND ([id number]) [facility] ([facility]) [address] [place] [address] 73311 Neutrophils/100 WBC (Bld) 73.3 % Normal 40.0-80.0 [facility] Comment on above: Performed By: #### 5 7021-8 #### MELLO TOWNSEND ([id number]) [facility] ([facility]) [address] [place] [address] 04640 Nucleated RBC/100 WBC (Bld) [Ratio] 0.0 /100 WBCs Normal 0.0-0.0 [facility] Comment on above: Performed By: #### 5 7021-8 #### MELLO TOWNSEND ([id number]) [facility] ([facility]) [address] [place] [address] 69138 Platelets (Bld) [#/Vol] 417 x10*3/uL Normal 150-450 [facility] Comment on above: Performed By: #### 5 7021-8 #### MELLO TOWNSEND ([id number]) [facility] ([facility]) [address] [place] [address] 40470 RBC (Bld) [#/Vol] 3.61 x10*6/uL Low 4.00-5.20 [facility] Comment on above: Performed By: #### 5 7021-8 #### MELLO TOWNSEND ([id number]) [facility] ([facility]) [address] [place] [address] 91240 WBC (Bld) [#/Vol] 12.9 x10*3/uL High 4.4-11.3 [facility] Comment on above: Performed By: #### 5 7021-8 #### SARKAR KRISTIAN ([id number]) [facility] ([facility]) [address] [place] [address] CT ANGIO CHEST FOR PULMONARY EMBOLISMon 10-06-2024 CT ANGIO CHEST FOR PULMONARY EMBOLISM STUDY: CT Angiogram of the Chest; 10/06/2024 at 6:25 p.m. INDICATION: Shortness of breath. Tachypnea. Palpitations. Elevated D-Dimer. COMPARISON: None Available. ACCESSION NUMBER(S): [id number] ORDERING CLINICIAN: JOSE DAMON TECHNIQUE: CTA of [...] pulmonary embolus. Signed by Kyle Perez MD [facility] CT Chest W contrast IV and [...] Elevated D-Dimer. COMPARISON: None Available. ACCESSION NUMBER(S): [id number] ORDERING CLINICIAN: JOSE DAMON TECHNIQUE: CTA of [...] Elevated D-Dimer. COMPARISON: None Available. ACCESSION NUMBER(S): [id number] ORDERING CLINICIAN: JOSE DAMON TECHNIQUE: CTA of [...] pulmonary embolus. Signed by Kyle Perez MD [facility] Work Phone: Radiology Study observation (narrative) [facility] Work Phone: CT Chest W contrast IV and C T angiogram Pulmonary arteries for pulmonary embolus W contrast IVOrdered By: Kyle Perez on 10-06-2024 [facility] Work Phone: Comprehensive metabolic 2000 panelon 10-06-2024 Albumin BCP dye [Mass/Vol] 3.1 g/dL Low 3.4 - 5.0 g/dL [facility] ALP [Catalytic activity/Vol] 200 U/L High 33 - 110 U/L [facility] ALT With P-5'-P [Catalytic activity/Vol] 12 U/L 7 - 45 U/L [facility] Comment on above: Patients treated wit h Sulfasalazine may generate falsely decreased results for ALT. Anion gap [Moles/Vol] 10 mmol/L 10 - 20 mmol/L [facility] AST With P-5'-P [Catalytic activity/Vol] 17 U/L 9 - 39 U/L [facility] Bilirubin [Mass/Vol] 0.3 mg/dL 0.0 - 1 .2 mg/dL [facility] Calcium [Mass/Vol] 8.1 mg/dL Low 8.6 - 10. 3 mg/dL [facility] Chloride [Moles/Vol] 106 mmol/L 98 - 10 7 mmol/L [facility] CO2 [Moles/Vol] 22 mmol/L 21 - 32 mmol/L [facility] Creatinine [Mass/Vol] 0.44 mg/dL Low 0.50 - 1.05 mg/dL [facility] eGFR - PINF [facility] Comment on above: Calculations of andrey mated GFR are performed using the 2020 CKD-EPI Study Refit equation without the race variable for the IDMS-Traceable creatinine methods. https://jasn.asnjournals.org/content/early/ASN.4800797 988 Glucose [Mass/Vol] 89 mg/dL 74 - 99 mg/dL [facility] Interpretation and review of laboratory results Abnormal [facility] Potassium [Moles/Vol] 3.6 mmol/L 3.5 - 5.3 mmol/L [facility] Protein [Mass/Vol] 6.8 g/dL 6.4 - 8.2 g/dL [facility] Sodium [Moles/Vol] 134 mmol/L Low 136 - 145 mmol/L [facility] Urea nitrogen [Mass/Vol] 8 mg/dL 6 - 23 mg/dL [facility] Albumin BCP dye [Mass/Vol] 3.1 g/dL Low 3.4-5.0 [facility] Comment on above: Performed By: #### 2 4323-8 #### MELLO TOWNSEND ([id number]) [facility] ([facility]) [address] [place] [address] ALP [Catalytic activity/Vol] 200 U/L High 33-110 [facility] Comment on above: Performed By: #### 2 4323-8 #### MELLO TOWNSEND ([id number]) [facility] ([facility]) [address] [place] [address] 35849 ALT With P-5'-P [Catalytic activity/Vol] 12 U/L Normal 7-45 [facility] Comment on above: Result Comment: Zaira ents treated with Sulfasalazine may generate falsely decreased results for ALT. Performed By: #### 2 4323-8 #### MELLO TOWNSEND ([id number]) [facility] ([facility]) [address] [place] [address] 03266 Anion gap [Moles/Vol] 10 mmol/L Normal 10-20 [facility] Comment on above: Performed By: #### 2 4323-8 #### MELLO TOWNSEND ([id number]) [facility] ([facility]) [address] [place] [address] 35813 AST With P-5'-P [Catalytic activity/Vol] 17 U/L Normal 9-39 [facility] Comment on above: Performed By: #### 2 4323-8 #### MELLO TOWNSEND ([id number]) [facility] ([facility]) [address] [place] [address] 40258 Bilirubin [Mass/Vol] 0.3 mg/dL Normal 0.0-1.2 [facility] Comment on above: Performed By: #### 2 4323-8 #### MELLO TOWNSEND ([id number]) [facility] ([facility]) [address] [place] [address] Calcium [Mass/Vol] 8.1 mg/dL Low 8.6-10.3 [facility] Comment on above: Performed By: #### 2 4323-8 #### MELLO TOWNSEND ([id number]) [facility] ([facility]) [address] [place] [address] Chloride [Moles/Vol] 106 mmol/L Normal 98-107 [facility] Comment on above: Performed By: #### 2 4323-8 #### MELLO TOWNSEND ([id number]) [facility] ([facility]) [address] [place] [address] 53900 CO2 [Moles/Vol] 22 mmol/L Normal 21-32 [facility] Comment on above: Performed By: #### 2 4323-8 #### MELLO TOWNSEND ([id number]) [facility] ([facility]) [address] [place] [address] Creatinine [Mass/Vol] 0.44 mg/dL Low 0.50-1.05 [facility] Comment on above: Performed By: #### 2 4323-8 #### MELLO TOWNSEND ([id number]) [facility] ([facility]) [address] [place] [address] 19519 GFR/1.73 sq M.predicted MDRD (S/P/Bld) [Vol rate/Area] mL/min/{1.73_m2} Normal >60 [facility] Comment on above: Result Comment: Calc ulations of estimated GFR are performed using the 2020 CKD-EPI Study Refit equation without the race variable for the IDMS-Traceable creatinine methods. https://jasn.asnjournals.org/content//ASN.6617278 988 Performed By: #### 2 4323-8 #### MELLO TOWNSEND ([id number]) [facility] ([facility]) [address] [place] [address] Glucose [Mass/Vol] 89 mg/dL Normal 74-99 [facility] Comment on above: Performed By: #### 2 4323-8 #### MELLO TOWNSEND ([id number]) [facility] ([facility]) [address] [place] [address] 53680 Potassium [Moles/Vol] 3.6 mmol/L Normal 3.5-5.3 [facility] Comment on above: Performed By: #### 2 4323-8 #### MELLO TOWNSEND ([id number]) [facility] ([facility]) [address] [place] [address] 21683 Protein [Mass/Vol] 6.8 g/dL Normal 6.4-8.2 [facility] Comment on above: Performed By: #### 2 4323-8 #### MELLO TOWNSEND ([id number]) [facility] ([facility]) [address] [place] [address] 79149 Sodium [Moles/Vol] 134 mmol/L Low 136-145 [facility] Comment on above: Performed By: #### 2 4323-8 #### MELLO TOWNSEND ([id number]) [facility] ([facility]) [address] [place] [address] 59844 Urea nitrogen [Mass/Vol] 8 mg/dL Normal 6-23 [facility] Comment on above: Performed By: #### 2 4323-8 #### MELLO TOWNSEND ([id number]) [facility] ([facility]) [address] [place] [address] 95114 D-Dimer, VTE Exclusionon Fibrin D-dimer FEU (PPP) [Mass/Vol] 1367 [facility] ECG 12-LEADon 10-06-2024 ECG 12-LEAD Ventricular Rate 102 Atrial Rate 102 P-R Interval 118 QRS Duration 86 Q-T Interval 334 QTC Calculation(Bazett) 435 P [place] 73 R [place] 97 T [place] 19 QRS Count 17 Q Onset 215 [...] Rice ([id number]) on 10/11/2024 9:23:17 PM Normal [facility] FLUAV and FLUBV RNA ISAK+prob e Nom (Unsp spec)on 10-06-2024 FLUAV RNA ISAK+probe Ql (Resp) Not detected Not Detected [facility] FLUBV RNA ISAK+probe Ql (Resp) Not detected Not Detected [facility] This assay is an in vitro diagnostic multiplex nucleic acid amplification test for the detection and discrimination of Influenza A & B from nasopharyngeal specimens, and has been validated for use at [facility]. Negative results do not preclude Influenza A/B infections, and should not be used as the sole basis for diagnosis, treatment, or other management decisions. If Influenza A/B and RSV PCR results are negative, testing for Parainfluenza virus, Adenovirus and Metapneumovirus is routinely performed for [facility] [place] oncology and intensive care inpatients, and is available on other patients by placing an add-on request. [facility] FLUAV RNA ISAK+probe Ql (Resp) Not detected Normal Not Detected [facility] Comment on above: Order Comment: This assay is an in vitro diagnostic multiplex nucleic acid amplification test for the detection and discrimination of Influenza A & B from nasopharyngeal specimens, and has been validated for use at [facility]. Negative results do not preclude Influenza A/B infections, and should not be used as the sole basis for diagnosis, treatment, or other management decisions. If Influenza A/B and RSV PCR results are negative, testing for Parainfluenza virus, Adenovirus and Metapneumovirus is routinely performed for [facility] [place] pediatric oncology and intensive care inpatients, and is available on other patients by placing an add-on request. Performed By: #### 4 8509-4 #### SARKAR KRISTIAN ([id number]) [facility] ([facility]) [address] [place] [address] FLUBV RNA ISAK+probe Ql (Resp) Not detected Normal Not Detected [facility] Comment on above: Order Comment: This assay is an in vitro diagnostic multiplex nucleic acid amplification test for the detection and discrimination of Influenza A & B from nasopharyngeal specimens, and has been validated for use at [facility]. Negative results do not preclude Influenza A/B infections, and should not be used as the sole basis for diagnosis, treatment, or other management decisions. If Influenza A/B and RSV PCR results are negative, testing for Parainfluenza virus, Adenovirus and Metapneumovirus is routinely performed for [facility] [place] pediatric oncology and intensive care inpatients, and is available on other patients by placing an add-on request. Performed By: #### 4 8509-4 #### MELLO TOWNSEND ([id number]) [facility] ([facility]) [address] [place], [place] [id number] Fibrin D-dimer FEUon 025 Fibrin D-dimer FEU (PPP) [Mass/Vol] 1367 ng/mL FEU High <=500 [facility] Comment on above: Order Comment: The V TE Exclusion D-Dimer assay is reported in ng/mL Fibrinogen Equivalent Units (FEU). Per medical case manager's instructions for use, a value of less [...] By: #### 4 8065-7 #### MELLO TOWNSEND ([id number]) [facility] ([facility]) [facility] [place] [address] Fibrin D-dimer FEU (PPP) [Ma ss/Vol]on 10-06-2024 Interpretation and review of laboratory results Abnormal [facility] The VTE Exclusion D-Dimer assay is reported in ng/mL Fibrinogen Equivalent Units (FEU). Per medical case manager's instructions for use, a value of less [...] assessment model for DVT or PE exclusion.) [facility] No Panel Informationon 10-06 Interpretation and review of laboratory results Normal [facility] Interpretation and review of laboratory results Normal [facility] SARS coronavirus 2 RNAon SARS-CoV-2 (COVID-19) RNA ISAK+probe Ql (Resp) Not detected Normal Not Detected [facility] Comment on above: Order Comment: This assay is an FDA-cleared, in vitro diagnostic nucleic acid amplification test for the qualitative detection and differentiation of SARS CoV-2 from nasopharyngeal specimens collected from individuals with signs and symptoms of respiratory tract infections, and has been validated for use at [facility]. Negative results do not preclude COVID-19 infections and should not be used as the sole basis for diagnosis, treatment, or other management decisions. Testing for SARS CoV-2 is recommended only for patients who meet current clinical and/or epidemiological criteria defined by federal, state, or local public health directives. Performed By: #### 9 4500-6 #### SARKAR KRISTIAN ([id number]) [facility] ([facility]) [address] [place] [address] SARS-CoV-2 (COVID-19) RNA NA A+probe Ql (Resp)on 10-06-2024 This assay is an FDA-cleared, in vitro diagnostic nucleic acid amplification test for the qualitative detection and differentiation of SARS CoV-2 from nasopharyngeal specimens collected from individuals with signs and symptoms of respiratory tract infections, and has been validated for use at [facility]. Negative results do not preclude COVID-19 infections and should not be used as the sole basis for diagnosis, treatment, or other management decisions. Testing for SARS CoV-2 is recommended only for patients who meet current clinical and/or epidemiological criteria defined by federal, state, or local public health directives. [facility] Sars-CoV-2 PCRon 10-06-2024 SARS-CoV-2 (COVID-19) RNA ISAK+probe Ql (Resp) Not detected Not Detected [facility] TSH WITH REFLEX TO FREE T4 I F ABNORMALon 10-06-2024 TSH Qn 2.25 m[IU]/L Normal 0.44-3.98 [facility] Comment on above: Order Comment: TSH t esting is performed using different testing methodology at [facility] than at other [facility]. Direct result comparisons should only be made within the same method. Performed By: #### T HYDS #### SARKAR KRISTIAN ([id number]) [facility] ([facility]) [address] [place] [address] TSH with reflex to Free T4 i f abnormalon 10-06-2024 TSH Qn 2.25 m[IU]/L [facility] TSH testing is perfo rmed using different testing methodology at [facility] than at other [facility]. Direct result comparisons should only be made within the same method. [facility] Tropinin I.cardiac panel Hig h sensitivity methodon [...] performed using a different testing methodology at [facility] than at other [facility]. Direct result comparisons should only be made within the same method. [facility] Troponin I, High Sensitivity on 10-06-2024 Tropinin I.cardiac panel High sensitivity method 4 ng/L 0 - 13 ng/L [facility] Troponin I.cardiac panelon 0 10-06-2024 Tropinin I.cardiac panel High sensitivity method 4 ng/L Normal 0-13 [facility] Comment on above: Order Comment: Less [...] performed using a different testing methodology at [facility] than at other [facility]. Direct result comparisons should only be made within the same method. Performed By: #### 8 9577-1 #### SARKAR KRISTIAN ([id number]) [facility] ([facility]) [address] [place] [address] XR CHEST 1 VIEWon 10-06-2024 XR CHEST 1 VIEW Interpreted By: Arsenio Roy, STUDY: XR CHEST 1 VIEW; 10/06/2024 5:12 pm INDICATION: Signs/Symptoms:dyspnea. COMPARISON: None. ACCESSION NUMBER(S): [id number] ORDERING CLINICIAN: JOSE DAMON FINDINGS: The cardiomediastinal [...] Arsenio Roy 10/06/2024 5:34 PM Dictation workstation: [id number] [facility] XR Chest Single viewon 10-06 Ill-defined opacity at the left lung base favored to represent atelectasis or developing pneumonia. MACRO: None. Signed by: Arsenio Roy 10/06/2024 5:34 PM Dictation workstation: [id number] [facility] Interpreted By: Arsenio Roy, STUDY: XR CHEST 1 VIEW; 10/06/2024 5:12 pm INDICATION: Signs/Symptoms:dyspnea. COMPARISON: None. ACCESSION NUMBER(S): [id number] ORDERING CLINICIAN: JOSE DAMON FINDINGS: The cardiomediastinal [...] pm INDICATION: Signs/Symptoms:dyspnea. COMPARISON: None. ACCESSION NUMBER(S): [id number] ORDERING CLINICIAN: JOSE DAMON FINDINGS: The cardiomediastinal [...] Arsenio Roy 10/06/2024 5:34 PM Dictation workstation: [id number] [facility] Work Phone: Radiology Study observation (narrative) [facility] Work Phone: XR Chest Single viewOrdered By: Arsenio Roy on 10-06-2024 [facility] Work Phone: Comprehensive Metabolic Prof ilon 10-04-2024 Albumin [Mass/Vol] 3.1 g/dL Low 3.5-5.0 [facility] Comment on above: Performed By: #### L 500.4050 #### [facility] [address] [place], [place], [address] Albumin/Globulin [Mass ratio] 0.8 {ratio} Low 0.9-2.4 [facility] Comment on above: Performed By: #### L 500.4050 #### [facility] [address] [place], [place], [address] ALK PHOS 199 U/L High 35-104 [facility] Comment on above: Performed By: #### L 500.4050 #### [facility] [address] [place], [address] ALT [Catalytic activity/Vol] 13 U/L Normal <=34 [facility] Comment on above: Performed By: #### L 500.4050 #### [facility] [address] [place], [address] AST [Catalytic activity/Vol] 21 U/L Normal <=31 [facility] Comment on above: Performed By: #### L 500.4050 #### [facility] [address] [place], [address] Bilirubin [Mass/Vol] 0.20 mg/dL Normal 0.00-1.30 [facility] Comment on above: Performed By: #### L 500.4050 #### [facility] [address] [place], [address] BUN/CRE 16.2 RATIO Normal 10-20 [facility] Comment on above: Performed By: #### L 500.4050 #### [facility] [address] [place], [address] Calcium [Mass/Vol] 8.6 mg/dL Normal 7.6-11.0 [facility] Comment on above: Performed By: #### L 500.4050 #### [facility] [address] [place], [address] Chloride [Moles/Vol] 103 mmol/L Normal 98-108 [facility] Comment on above: Performed By: #### L 500.4050 #### [facility] [address] [place], [address] CO2 [Moles/Vol] 19.1 mmol/L Low 21.0-32.0 [facility] Comment on above: Performed By: #### L 500.4050 #### [facility] [address] [place], [address] Creatinine [Mass/Vol] 0.51 mg/dL Low 0.70-1.20 [facility] Comment on above: Performed By: #### L 500.4050 #### [facility] [address] [place], [address] ECRCL 174.98 ml/min Normal 50-250 [facility] Comment on above: Performed By: #### L 500.4050 #### [facility] [address] [place], [address] GAP 12 Normal 5-15 [facility] Comment on above: Performed By: #### L 500.4050 #### [facility] [address] [place], [address] GFR/1.73 sq M.predicted among non-blacks MDRD (S/P/Bld) [Vol rate/Area] 136 mL/min/{1.73_m2} Normal >60 [facility] Comment on above: Result Comment: mL/m in/1.73m2 CKD-EPI Creatinine Equation (2020) Performed By: #### L 500.4050 #### [facility] [address] [place], [address] Globulin (S) [Mass/Vol] 3.7 g/dL Normal 2.2-4.2 [facility] Comment on above: Performed By: #### L 500.4050 #### [facility] [address] [place], [address] Glucose [Mass/Vol] 109 mg/dL High 70-99 [facility] Comment on above: Performed By: #### L 500.4050 #### [facility] [address] [place], [address] Potassium [Moles/Vol] 3.5 mmol/L Normal 3.3-5.1 [facility] Comment on above: Performed By: #### L 500.4050 #### [facility] [address] [place], [address] Sodium [Moles/Vol] 134 mmol/L Normal 133-145 [facility] Comment on above: Performed By: #### L 500.4050 #### [facility] [address] [place], [place], [address] T PROT 6.8 g/dL Normal 5.9-8.4 [facility] Comment on above: Performed By: #### L 500.4050 #### [facility] [address] [place], [place], [address] Urea nitrogen [Mass/Vol] 8 mg/dL Normal 4-19 [facility] Comment on above: Performed By: #### L 500.4050 #### [facility] [address] [place], [place], [address] OB Triage Physician Noteon 0 10-04-2024 OB Triage Physician Note [facility] Medical Records Department [address] [place] [address] OB Triage Physician Note 10/04/24 0937 MR#: [id number] Acct: [id number] Name: MARYANA WILLIAM Rep #: [id number] : 2005 19 From: Tyrell Spencer MD PCP: Care Physician,No Primary Status:DEP CLI Y Location: [facility] HPI - General General Date of Admission: [...] Final COTY: 12/02/24 Gestational age: 31 3/7 [facility] Medical History Preeclampsia Home Medications ???Medication ???Instructions [...] MD; No Primary Care Physician Signed Normal [facility] CBC W/Diff, Automatedon 05-0 -2024 Absolute Lymph 3.17 X10 3/uL Normal 0.83-4.51 [facility] Comment on above: Performed By: #### L 100.0100 #### [facility] [address] [place], [address] Absolute Neut 11.3 X10 3/uL High 2.0-7.7 [facility] Comment on above: Performed By: #### L 100.0100 #### [facility] [address] [place], [address] Basophils/100 WBC (Bld) 0.3 % Normal 0-1 [facility] Comment on above: Performed By: #### L 100.0100 #### [facility] [address] [place], [address] Eosinophils/100 WBC (Bld) 1.2 % Normal 0-5 [facility] Comment on above: Performed By: #### L 100.0100 #### [facility] [address] [place], [address] Erythrocyte distribution width (RBC) [Ratio] 12.4 % Normal 11.6-14.6 [facility] Comment on above: Performed By: #### L 100.0100 #### [facility] [address] [place], [address] Hematocrit (Bld) [Volume fraction] 22.2 % Low 37-47 [facility] Comment on above: Performed By: #### L 100.0100 #### [facility] [address] [place], [address] Hemoglobin (Bld) [Mass/Vol] 7.4 g/dL Low 12.0-15.0 [facility] Comment on above: Performed By: #### L 100.0100 #### [facility] [address] [place], [address] IG% 0.700 Normal 0.0-0.9 [facility] Comment on above: Result Comment: IG% - Immature Granulocytes (promyelocytes, myelocytes and metamyelocytes) > 1% indicates that a LEFT SHIFT is Present. Performed By: #### L 100.0100 #### [facility] [address] [place], [address] Lymphocytes/100 WBC (Bld) 20.3 % Normal 19-41 [facility] Comment on above: Performed By: #### L 100.0100 #### [facility] [address] [place], [address] MCH (RBC) [Entitic mass] 27.2 pg Normal 27.0-32.0 [facility] Comment on above: Performed By: #### L 100.0100 #### [facility] [address] [place], [address] MCHC (RBC) [Mass/Vol] 33.3 g/dL Normal 32-36 [facility] Comment on above: Performed By: #### L 100.0100 #### [facility] [address] [place], [address] MCV (RBC) [Entitic vol] 81.6 fL Normal 81-99 [facility] Comment on above: Performed By: #### L 100.0100 #### [facility] [address] [place], [address] Monocytes/100 WBC (Bld) 5.4 % Normal 0-10 [facility] Comment on above: Performed By: #### L 100.0100 #### [facility] [address] [place], [address] Neutrophils/100 WBC (Bld) 72.1 % High 47-70 [facility] Comment on above: Performed By: #### L 100.0100 #### [facility] [address] [place], [address] Nucleated RBC (Bld) [#/Vol] 0 10*3/uL Normal 0-5 [facility] Comment on above: Performed By: #### L 100.0100 #### [facility] [address] [place], [address] Platelet mean volume (Bld) [Entitic vol] 9.6 fL Normal 6.2-12.0 [facility] Comment on above: Performed By: #### L 100.0100 #### [facility] [address] [place], [address] Platelets (Bld) [#/Vol] 457 10*3/uL High 150-450 [facility] Comment on above: Performed By: #### L 100.0100 #### [facility] [address] [place], [address] RBC (Bld) [#/Vol] 2.72 10*6/uL Low 4.2-5.4 [facility] Comment on above: Performed By: #### L 100.0100 #### [facility] [address] [place], [address] RDW SD 37.1 fl Normal 35.1-43.9 [facility] Comment on above: Performed By: #### L 100.0100 #### [facility] [address] [place], [address] WBC (Bld) [#/Vol] 15.6 10*3/uL High 4.4-11.0 [facility] Comment on above: Performed By: #### L 100.0100 #### [facility] [address] [place], [address] Emergency Department Summary on 10-03-2024 Emergency Department Summary [facility] Medical Records Department [address] [place] [address] Emergency Department Summary 10/03/24 MR#: [id number] Acct: [id number] Name: MARYANA WILLIAM Rep #: [id number] : 2005 19 From: Triston Valerio MD [...] other. No history of DVT or PE. [facility] Medical History Preeclampsia Home Medications ???Medication ???Instructions [...] the pos (more content not included)... Normal [facility] Protein+Creatinine Ratio,Uri neon 10-03-2024 PROT:CRE RATIO 170 mg/g CRE Normal 0-200 [facility] Comment on above: Performed By: #### L 501.0900 #### [facility] [address] [place], [address] Protein (U) [Mass/Vol] 14.6 mg/dL High 0.0-12.0 [facility] Comment on above: Performed By: #### L 501.0900 #### [facility] [address] [place], [address] UR CREAT 86.10 mg/dL Normal 28.00-217.00 [facility] Comment on above: Performed By: #### L 501.0900 #### [facility] [address] [place], [address] Urinalysis, Completeon 10-03 BACTERIA 1+ /hpf Normal None Seen [facility] Comment on above: Order Comment: CLEAN CATCH Performed By: #### L 400.0001 #### [facility] [address] [place], [address] EPI,SQUAMOUS 10-25 SEEN Normal 5-10 [facility] Comment on above: Order Comment: CLEAN CATCH Performed By: #### L 400.0001 #### [facility] [address] [place], [address] WBC 10-25 SEEN Normal 0-5 [facility] Comment on above: Order Comment: CLEAN CATCH Performed By: #### L 400.0001 #### [facility] [address] [place], [address] Mucus Ql (Urine sed) 0 SEEN Normal [facility] Comment on above: Order Comment: CLEAN CATCH Performed By: #### L 400.0001 #### [facility] [address] [place], [address] RBC 0 SEEN Normal 0-5 [facility] Comment on above: Order Comment: CLEAN CATCH Performed By: #### L 400.0001 #### [facility] [address] [place], [address] CBC W Auto Differential pane l (Bld)on 09-09-2024 Basophils (Bld) [#/Vol] 0.05 10*3/uL Normal <0.11 [facility] Comment on above: Order Comment: Speci men Type: BLOOD SPECIMENOrdering Facility: [facility] Address: [address] [place] [address] Performed By: #### 5 7021-8 ####[facility] [id number] [place] [address] [place] Basophils/100 WBC (Bld) 0.3 % Normal [facility] Comment on above: Order Comment: Speci men Type: BLOOD SPECIMENOrdering Facility: [facility] Address: [address] [place] [address] Performed By: #### 5 7021-8 ####[facility] [id number] [place] [address] [place] Differential cell count method Nom (Bld) Auto Normal [facility] Comment on above: Order Comment: Speci men Type: BLOOD SPECIMENOrdering Facility: [facility] Address: [address] [place] [address] Performed By: #### 5 7021-8 ####[facility] [id number] [place] [address] [place] Eosinophils (Bld) [#/Vol] 0.12 10*3/uL Normal <0.46 [facility] Comment on above: Order Comment: Speci men Type: BLOOD SPECIMENOrdering Facility: [facility] Address: [address] [place] [address] Performed By: #### 5 7021-8 ####[facility] [id number] [place] [address] [place] Eosinophils/100 WBC (Bld) 0.8 % Normal [facility] Comment on above: Order Comment: Speci men Type: BLOOD SPECIMENOrdering Facility: [facility] Address: [address] [place] [address] Performed By: #### 5 7021-8 ####[facility] [id number] [place] [address] [place] Erythrocyte distribution width (RBC) [Ratio] 12.9 % Normal 11.5-15.0 [facility] Comment on above: Order Comment: Speci men Type: BLOOD SPECIMENOrdering Facility: [facility] Address: [address] [place] [address] Performed By: #### 5 7021-8 ####[facility] [id number] [place] [address] [place] Hematocrit (Bld) [Volume fraction] 29.1 % Low 36.0-46.0 [facility] Comment on above: Order Comment: Speci men Type: BLOOD SPECIMENOrdering Facility: [facility] Address: [address] [place] [address] Performed By: #### 5 7021-8 ####[facility] [id number] [place] [address] [place] Hemoglobin (Bld) [Mass/Vol] 9.6 g/dL Low 11.5-15.5 [facility] Comment on above: Order Comment: Speci men Type: BLOOD SPECIMENOrdering Facility: [facility] Address: [address] [place] [address] Performed By: #### 5 7021-8 ####[facility] [id number] [place] [address] [place] Immature granulocytes (Bld) [#/Vol] 0.12 10*3/uL High <0.10 [facility] Comment on above: Order Comment: Speci men Type: BLOOD SPECIMENOrdering Facility: [facility] Address: [address] [place] [address] Performed By: #### 5 7021-8 ####[facility] ANAWJAMESONLIA [id number] [place] [address] [place] Immature granulocytes/100 WBC (Bld) 0.8 % Normal [facility] Comment on above: Order Comment: Speci men Type: BLOOD SPECIMENOrdering Facility: [facility] Address: [address] [place] [address] Performed By: #### 5 7021-8 ####[facility] ARVINWNCLIA [id number] [place] [address] [place] Lymphocytes (Bld) [#/Vol] 2.61 10*3/uL Normal 1.00-4.00 [facility] Comment on above: Order Comment: Speci men Type: BLOOD SPECIMENOrdering Facility: [facility] Address: [address] [place] [address] Performed By: #### 5 7021-8 ####[facility] ANATOWNCLIA [id number] [place] [address] [place] Lymphocytes/100 WBC (Bld) 17.5 % Normal [facility] Comment on above: Order Comment: Speci men Type: BLOOD SPECIMENOrdering Facility: [facility] Address: [address] [place] [address] Performed By: #### 5 7021-8 ####[facility] [id number] [place] [address] [place] MCH (RBC) [Entitic mass] 27.4 pg Normal 26.0-34.0 [facility] Comment on above: Order Comment: Speci men Type: BLOOD SPECIMENOrdering Facility: [facility] Address: [address] [place] [address] Performed By: #### 5 7021-8 ####[facility] [id number] [place] [address] [place] MCHC (RBC) [Mass/Vol] 33.0 g/dL Normal 30.5-36.0 [facility] Comment on above: Order Comment: Speci men Type: BLOOD SPECIMENOrdering Facility: [facility] Address: [address] [place] [address] Performed By: #### 5 7021-8 ####[facility] [id number] [place] [address] [place] MCV (RBC) [Entitic vol] 82.9 fL Normal 80.0-100.0 [facility] Comment on above: Order Comment: Speci men Type: BLOOD SPECIMENOrdering Facility: [facility] Address: [address] [place] [address] Performed By: #### 5 7021-8 ####[facility] [id number] [place] [address] [place] Monocytes (Bld) [#/Vol] 0.84 10*3/uL Normal <0.87 [facility] Comment on above: Order Comment: Speci men Type: BLOOD SPECIMENOrdering Facility: [facility] Address: [address] [place] [address] Performed By: #### 5 7021-8 ####[facility] [id number] [place] [address] [place] Monocytes/100 WBC (Bld) 5.6 % Normal [facility] Comment on above: Order Comment: Speci men Type: BLOOD SPECIMENOrdering Facility: [facility] Address: [address] [place] [address] Performed By: #### 5 7021-8 ####[facility] [id number] [place] [address] [place] Neutrophils (Bld) [#/Vol] 11.15 10*3/uL High 1.45-7.50 [facility] Comment on above: Order Comment: Speci men Type: BLOOD SPECIMENOrdering Facility: [facility] Address: [address] [place] [address] Performed By: #### 5 7021-8 ####[facility] [id number] [place] [address] [place] Neutrophils/100 WBC (Bld) 75.0 % Normal [facility] Comment on above: Order Comment: Speci men Type: BLOOD SPECIMENOrdering Facility: [facility] Address: [address] [place] [address] Performed By: #### 5 7021-8 ####[facility] [id number] [place] [address] [place] Nucleated RBC (Bld) [#/Vol] 10*3/uL Normal <0.01 [facility] Comment on above: Order Comment: Speci men Type: BLOOD SPECIMENOrdering Facility: [facility] Address: [address] [place] [address] Performed By: #### 5 7021-8 ####[facility] [id number] [place] [address] [place] Nucleated RBC/100 WBC (Bld) [Ratio] 0.0 /100 WBC Normal [facility] Comment on above: Order Comment: Speci men Type: BLOOD SPECIMENOrdering Facility: [facility] Address: [address] [place], [place] [address] Performed By: #### 5 7021-8 ####[facility] SLVAANCBOB [id number] [place] [address] [place] Platelet mean volume (Bld) [Entitic vol] 9.2 fL Normal 9.0-12.7 [facility] Comment on above: Order Comment: Speci men Type: BLOOD SPECIMENOrdering Facility: [facility] Address: [address] [place] [address] Performed By: #### 5 7021-8 ####[facility]ENTERMARK [id number] [place] [address] [place] Platelets (Bld) [#/Vol] 407 10*3/uL High 150-400 [facility] Comment on above: Order Comment: Speci men Type: BLOOD SPECIMENOrdering Facility: [facility] Address: [address] [place] [address] Performed By: #### 5 7021-8 ####[facility] CENTERNCEMERYA [id number] [place] [address] [place] RBC (Bld) [#/Vol] 3.51 10*6/uL Low 3.90-5.20 [facility] Comment on above: Order Comment: Speci men Type: BLOOD SPECIMENOrdering Facility: [facility] Address: [address] [place], [place] [address] Performed By: #### 5 7021-8 ####[facility]ENTERNCLIA [id number] [place] [address] [place] WBC (Bld) [#/Vol] 14.89 10*3/uL High 3.70-11.00 [facility] Comment on above: Order Comment: Speci men Type: BLOOD SPECIMENOrdering Facility: [facility] Address: [address] [place] [address] Performed By: #### 5 7021-8 ####[facility] TIMOTHY MILLTOWNCLIA [id number] [place] [address] [place] CNCOon 09-09-2024 CNCO Letter Text Normal [facility] Ferritin SerPl-mCncon 2024 Ferritin [Mass/Vol] 7.0 ng/mL Low 14.7-205.1 [facility] Comment on above: Order Comment: Speci men Type: BLOOD SPECIMENOrdering Facility: [facility] Address: [address] [place] [address] Performed By: #### 2 276-4, 04541-1 ####[facility] LABCLIA [id number] [address] [place] GESTATIONAL GLUCOSE SCREEN, 1-HOUR, 50 GRAM, NON-FASTINGon 09-09-2024 Glucose [Mass/Vol] 97 mg/dL Normal 74-134 [facility] Comment on above: Order Comment: Speci men Type: BLOOD SPECIMEN [facility] Address: [address] [place] [address] Result Comment: [facility] Congress of Obstetricians and Gynecologists (Kurtis/Juliet) guidelines state a gestational diabetes mellitus positive screen is made, in women not previously diagnosed with overt diabetes, when the 1 hr plasma glucose level is equal to or above 140 mg/dL. The [facility] Engine Repairer Service and [facility] [place] recommends a 135 mg/dL cutoff. Performed By: #### T SPN #### [facility] CLIA [id number] [address] [place] [address] [place] Iron and Iron binding capaci ty panelon 09-09-2024 Iron [Mass/Vol] 38 ug/dL Low 41-186 [facility] Comment on above: Order Comment: Speci men Type: BLOOD SPECIMENOrdering Facility: [facility] Address: [address] [place] [address] Performed By: #### 2 276-4, 82928-4 ####[facility] LABCLIA [id number] [place] [address] [place] Iron binding capacity [Mass/Vol] >538 High 232-386 [facility] Comment on above: Order Comment: Speci men Type: BLOOD SPECIMENOrdering Facility: [facility] Address: [address] [place] [address] Performed By: #### 2 276-4, 18932-5 ####[facility] LABIA [id number] [place] [address] [place] Iron/TIBC [Molar ratio] <7.1 Low 15.0-57.0 [facility] Comment on above: Order Comment: Speci men Type: BLOOD SPECIMENOrdering Facility: [facility] Address: [address] [place] [address] Performed By: #### 2 276-4, 43288-0 ####[facility] LABIA [id number] [place] [address] [place] Reagin and Treponema pallidu m IgG and IgM [Interp]on 09-09-2024 T. pallidum IgG+IgM IA Ql (S) Non-Reactive Normal Nonreactive [facility] Comment on above: Order Comment: Speci men Type: BLOOD SPECIMENOrdering Facility: [facility] Address: [address] [place] [address] Performed By: #### 7 3752-8 ####[facility] LABIA [id number] [place] [address] [place] Reagin+T pallidum IgG+IgM Se rPl-Impon 09-09-2024 Reagin and Treponema pallidum IgG and IgM [Interp] Cannot exclude recent Treponemal infection if specimen collected within 7-10 days after appearance of suspect lesions or 2-3 weeks after an exposure. Clinical correlation is required. Normal [facility] Comment on above: Order Comment: Speci men Type: BLOOD SPECIMENOrdering Facility: [facility] Address: [address] [place] [address] Performed By: #### 7 3752-8 ####[facility] LABCLIA [id number] [place] [id number] [facility] Examination level ultrasound on 07-30-2024 Indication [...] 3 oz EFW by: Hadlock (HC-AC-FL) Extended Hotel Maintenance Technician 6.2 mm CM 3.7 mm 6% [...] normal LVOT view: normal 3-vessel view: normal 9-bdcubq-xsrklzw view: normal Heart / Thorax Situs: situs [...] By: Stephanie Da Silva M.D. 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 [...] tablet by mouth once daily. - PNV no.[id number]-[id number] sh ( GUMMIES) 400 mcg-35 mg- 25 mg-5 mg chew Take 1 Piece by mouth once daily. Meds Comments as of 02/06/2009: No current meds, reviewed 02/06/2009. 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 Cough is nonproductive. Denies dyspnea or [place] exertion. There is no history of VTE. [...] the leg (more content not included)... Normal [facility] CNCOon 06-12-2024 CNCO Letter Text Normal [facility] Bacteria Ur Culton Bacteria identified Cx Nom (U) CULTURE, URINE: No growth (<1,000 CFU/ml) Normal [facility] Comment on above: Performed By: #### T SPN #### [facility] CLIA [id number] [address] [place] [address] [place] C. trachomatis+N. gonorrhoea e DNA ISAK+probe Ql (Unsp spec)on 06-10-2024 C. trachomatis rRNA ISAK+probe Ql (Unsp spec) Not detected Normal Not detected [facility] Comment on above: Order Comment: Speci men Type: BLOOD SPECIMEN [facility] Address: [address] [place] [address] Performed By: #### T SPN #### [facility] CLIA [id number] [address] [place] [address] [place] N. gonorrhoeae rRNA ISAK+probe Ql (Unsp spec) Not detected Normal Not detected [facility] Comment on above: Order Comment: Speci men Type: BLOOD SPECIMEN [facility] Address: [address] [place] [address] Performed By: #### T SPN #### [facility] CLIA [id number] [facility] [id number] [address] [place] CBC W Auto Differential pane l (Bld)on 06-10-2024 Basophils (Bld) [#/Vol] 0.03 10*3/uL Normal <0.11 [facility] Comment on above: Order Comment: Speci men Type: BLOOD SPECIMENOrdering Facility: [facility] Address: [address] [place] [address] Performed By: #### 5 7021-8 ####[facility] [id number] [place] [address] [place] Basophils/100 WBC (Bld) 0.2 % Normal [facility] Comment on above: Order Comment: Speci men Type: BLOOD SPECIMENOrdering Facility: [facility] Address: [address] [place] [address] Performed By: #### 5 7021-8 ####[facility] [id number] [place] [address] [place] Differential cell count method Nom (Bld) Auto Normal [facility] Comment on above: Order Comment: Speci men Type: BLOOD SPECIMENOrdering Facility: [facility] Address: [address] [place] [address] Performed By: #### 5 7021-8 ####[facility] [id number] [place] [address] [place] Eosinophils (Bld) [#/Vol] 0.09 10*3/uL Normal <0.46 [facility] Comment on above: Order Comment: Speci men Type: BLOOD SPECIMENOrdering Facility: [facility] Address: [address] [place] [address] Performed By: #### 5 7021-8 ####[facility] [id number] [place] [address] [place] Eosinophils/100 WBC (Bld) 0.7 % Normal [facility] Comment on above: Order Comment: Speci men Type: BLOOD SPECIMENOrdering Facility: [facility] Address: [address] [place] [address] Performed By: #### 5 7021-8 ####[facility] [id number] [place] [address] [place] Erythrocyte distribution width (RBC) [Ratio] 14.0 % Normal 11.5-15.0 [facility] Comment on above: Order Comment: Speci men Type: BLOOD SPECIMENOrdering Facility: [facility] Address: [address] [place] [address] Performed By: #### 5 7021-8 ####[facility] [id number] [place] [address] [place] Hematocrit (Bld) [Volume fraction] 33.8 % Low 36.0-46.0 [facility] Comment on above: Order Comment: Speci men Type: BLOOD SPECIMENOrdering Facility: [facility] Address: [address] [place] [address] Performed By: #### 5 7021-8 ####[facility] [id number] [place] [address] [place] Hemoglobin (Bld) [Mass/Vol] 11.6 g/dL Normal 11.5-15.5 [facility] Comment on above: Order Comment: Speci men Type: BLOOD SPECIMENOrdering Facility: [facility] Address: [address] [place] [address] Performed By: #### 5 7021-8 ####[facility] [id number] [place] [address] [place] Immature granulocytes (Bld) [#/Vol] 0.07 10*3/uL Normal <0.10 [facility] Comment on above: Order Comment: Speci men Type: BLOOD SPECIMENOrdering Facility: [facility] Address: [address] [place] [address] Performed By: #### 5 7021-8 ####[facility] KERALIA [id number] [place] [address] [place] Immature granulocytes/100 WBC (Bld) 0.6 % Normal [facility] Comment on above: Order Comment: Speci men Type: BLOOD SPECIMENOrdering Facility: [facility] Address: [address] [place] [address] Performed By: #### 5 7021-8 ####[facility] CENTERJAMESONLIA [id number] [place] [address] [place] Lymphocytes (Bld) [#/Vol] 3.57 10*3/uL Normal 1.00-4.00 [facility] Comment on above: Order Comment: Speci men Type: BLOOD SPECIMENOrdering Facility: [facility] Address: [address] [place] [address] Performed By: #### 5 7021-8 ####[facility] CENTERJAMESONLIA [id number] [place] [address] [place] Lymphocytes/100 WBC (Bld) 28.9 % Normal [facility] Comment on above: Order Comment: Speci men Type: BLOOD SPECIMENOrdering Facility: [facility] Address: [address] [place] [address] Performed By: #### 5 7021-8 ####[facility] [id number] [place] [address] [place] MCH (RBC) [Entitic mass] 27.4 pg Normal 26.0-34.0 [facility] Comment on above: Order Comment: Speci men Type: BLOOD SPECIMENOrdering Facility: [facility] Address: [address] [place] [address] Performed By: #### 5 7021-8 ####[facility] [id number] [place] [address] [place] MCHC (RBC) [Mass/Vol] 34.3 g/dL Normal 30.5-36.0 [facility] Comment on above: Order Comment: Speci men Type: BLOOD SPECIMENOrdering Facility: [facility] Address: [address] [place] [address] Performed By: #### 5 7021-8 ####[facility] [id number] [place] [address] [place] MCV (RBC) [Entitic vol] 79.9 fL Low 80.0-100.0 [facility] Comment on above: Order Comment: Speci men Type: BLOOD SPECIMENOrdering Facility: [facility] Address: [address] [place] [address] Performed By: #### 5 7021-8 ####[facility] [id number] [place] [address] [place] Monocytes (Bld) [#/Vol] 0.62 10*3/uL Normal <0.87 [facility] Comment on above: Order Comment: Speci men Type: BLOOD SPECIMENOrdering Facility: [facility] Address: [address] [place] [address] Performed By: #### 5 7021-8 ####[facility] [id number] [place] [address] [place] Monocytes/100 WBC (Bld) 5.0 % Normal [facility] Comment on above: Order Comment: Speci men Type: BLOOD SPECIMENOrdering Facility: [facility] Address: [address] [place] [address] Performed By: #### 5 7021-8 ####[facility]ENTERNCLIA [id number] [place] [address] [place] Neutrophils (Bld) [#/Vol] 7.98 10*3/uL High 1.45-7.50 [facility] Comment on above: Order Comment: Speci men Type: BLOOD SPECIMENOrdering Facility: [facility] Address: [address] [place] [address] Performed By: #### 5 7021-8 ####[facility] [id number] [place] [address] [place] Neutrophils/100 WBC (Bld) 64.6 % Normal [facility] Comment on above: Order Comment: Speci men Type: BLOOD SPECIMENOrdering Facility: [facility] Address: [address] [place] [address] Performed By: #### 5 7021-8 ####[facility] [id number] [place] [address] [place] Nucleated RBC (Bld) [#/Vol] 10*3/uL Normal <0.01 [facility] Comment on above: Order Comment: Speci men Type: BLOOD SPECIMENOrdering Facility: [facility] Address: [address] [place] [address] Performed By: #### 5 7021-8 ####[facility] [id number] [place] [address] [place] Nucleated RBC/100 WBC (Bld) [Ratio] 0.0 /100 WBC Normal [facility] Comment on above: Order Comment: Speci men Type: BLOOD SPECIMENOrdering Facility: [facility] Address: [address] [place] [address] Performed By: #### 5 7021-8 ####[facility] [id number] [place] [address] [place] Platelet mean volume (Bld) [Entitic vol] 8.9 fL Low 9.0-12.7 [facility] Comment on above: Order Comment: Speci men Type: BLOOD SPECIMENOrdering Facility: [facility] Address: [address] [place] [address] Performed By: #### 5 7021-8 ####[facility] SLAVANCEMERYA [id number] [place] [address] [place] Platelets (Bld) [#/Vol] 404 10*3/uL High 150-400 [facility] Comment on above: Order Comment: Speci men Type: BLOOD SPECIMENOrdering Facility: [facility] Address: [address] [place] [address] Performed By: #### 5 7021-8 ####[facility] CENTERNCEMERYA [id number] [place] [address] [place] RBC (Bld) [#/Vol] 4.23 10*6/uL Normal 3.90-5.20 [facility] Comment on above: Order Comment: Speci men Type: BLOOD SPECIMENOrdering Facility: [facility] Address: [address] [place] [address] Performed By: #### 5 7021-8 ####[facility]ENTERNCLIA [id number] [place] [address] [place] WBC (Bld) [#/Vol] 12.36 10*3/uL High 3.70-11.00 [facility] Comment on above: Order Comment: Speci men Type: BLOOD SPECIMENOrdering Facility: [facility] Address: [address] [place] [address] Performed By: #### 5 7021-8 ####[facility]ENTERNCLIA [id number] [place] [address] [facility] HBV surface Ag Ser Qlon 0 HBV surface Ag Ql (S) Negative Normal Negative [facility] Comment on above: Order Comment: Speci men Type: BLOOD SPECIMENOrdering Facility: [facility] Address: [address] [place] [address] Performed By: #### 1 6128-1, 5195-3 ####[facility] LABCLIA [id number] [place] [address] [place] HCV Ab Ser Qlon 06-10-2024 HCV Ab Ql (S) Negative Normal Negative [facility] Comment on above: Order Comment: Speci men Type: BLOOD SPECIMEN [facility] Address: [address] [place] [address] Result Comment: The result suggests no evidence of active infection with Hepatitis C virus. Should recent infection be suspected, repeat testing may be considered 4-6 weeks after this draw. Performed By: #### T SPN #### [facility] BLOOD BANK CLIA [id number] [address] [place] [address] [place] HIV 1+2 Ab IA Qlon HIV 1 and 2 Ab IA.rapid Nom (S/P/Bld) Normal [facility] Comment on above: Order Comment: Speci men Type: BLOOD SPECIMEN [facility] Address: [address] [place] [address] Result Comment: Test not indicated. Performed By: #### T SPN #### [facility] BLOOD BANK CLIA [id number] [address] [place] [address] [place] HIV 1+2 Ab+HIV1 p24 Ag IA Ql Non-Reactive Normal Nonreactive [facility] Comment on above: Order Comment: Speci men Type: BLOOD SPECIMEN [facility] Address: [address] [place] [address] Performed By: #### T SPN #### [facility] CLIA [id number] [address] [place] [address] [place] HIV immunoassay testing algorithm interpretation (S/P/Bld) [Interp] Normal [facility] Comment on above: Order Comment: Speci men Type: BLOOD SPECIMEN [facility] [facility] Address: [address] [place] [address] Result Comment: No e vidence of HIV-1 or HIV-2 infection. Should recent infection be suspected, repeat testing may be considered 2-3 weeks after this draw. [place] Rev. Code 3701.243(E): This information has been [...] Performed By: #### T SPN #### [facility] CLIA [id number] [address] [place] [address] [place] HbA1c (Bld)on 06-10-2024 Average glucose Estimated from glycated hemoglobin (Bld) [Mass/Vol] 100 mg/dL Normal [facility] Comment on above: Order Comment: Speci men Type: BLOOD SPECIMEN Ordering Facility: [facility] Address: [address] [place] [address] Result Comment: eAG: (Estimated average glucose) is a calculated value from HgbA1c and is clearance representative of the average blood glucose level in the last 2-3 month period. Performed By: #### 5 5454-3 #### [facility] CLIA [id number] [address] [place] [address] [place] HbA1c (Bld) [Mass fraction] 5.1 % Normal 4.3-5.6 [facility] Comment on above: Order Comment: Speci men Type: BLOOD SPECIMEN Ordering Facility: [facility] Address: [address] [place] [address] Result Comment: [place] Diabetes Association guidelines indicate that patients with HgbA1c in the range 5.7-6.4% are at increased risk for development of diabetes, and intervention by lifestyle modification may be beneficial. HgbA1c greater or equal to 6.5% is considered diagnostic of diabetes. Performed By: #### 5 5454-3 #### [facility] CLIA [id number] [address] [place] [address] [place] RUBELLA IGG ANTIBODYon 06-10 RUBELLA IGG AB, QUAL Positive Normal Positive [facility] Comment on above: Order Comment: Susanne scott Type: BLOOD SPECIMEN Ordering Facility: [facility] Address: [address] [place] [address] Result Comment: The result suggests recent or past exposure to Rubella virus or history of Rubella vaccination. Positive result may also be seen due to presence of passively-transferred antibodies. Please correlate with patient's history. Performed By: #### T SPN #### [facility] CLIA [id number] [address] [place] [address] [place] Reagin and Treponema pallidu m IgG and IgM [Interp]on 06-10-2024 T. pallidum IgG+IgM IA Ql (S) Non-Reactive Normal Nonreactive [facility] Comment on above: Order Comment: Susanne scott Type: BLOOD SPECIMEN Ordering Facility: [facility] Address: [address] [place] [address] Performed By: #### T SPN #### [facility] CLIA [id number] [address] [place] [address] [place] Reagin+T pallidum IgG+IgM Se rPl-Impon 06-10-2024 Reagin and Treponema pallidum IgG and IgM [Interp] Cannot exclude recent Treponemal infection if specimen collected within 7-10 days after appearance of suspect lesions or 2-3 weeks after an exposure. Clinical correlation is required. Normal [facility] Comment on above: Order Comment: Susanne scott Type: BLOOD SPECIMEN Ordering Facility: [facility] Address: [address] [place] [address] Performed By: #### T SPN #### [facility] CLIA [id number] [address] [place] [address] [place] TYPE + SCREEN PRENATALon ABO A Normal [facility] Comment on above: Order Comment: Susanne scott Type: BLOOD SPECIMEN Ordering Facility: [facility] Address: [address] [place], [place] [address] Performed By: #### T SPN #### [facility] CLIA [id number] [address] [place] [address] [place] Rh Nom (Bld) Positive Normal [facility] Comment on above: Order Comment: Speci men Type: BLOOD SPECIMEN Ordering Facility: [facility] Address: [address] [place] [address] Performed By: #### T SPN #### [facility] CLIA [id number] [address] [place] [address] [place] TYPE AND SCREEN EXPIRATION 06/13/2024 23:59 Normal [facility] Comment on above: Order Comment: Speci men Type: BLOOD SPECIMEN Ordering Facility: [facility] Address: [address] [place] [address] Performed By: #### T SPN #### [facility] CLIA [id number] [address] [place] [address] [place] Streptococcus.beta-hemolytic Org specific cx Ql (Genital specimen)Ordered By: Torri Clark on 06-16-2023 Interpretation and review of laboratory results Normal [facility] S. agalactiae Org specific cx Ql (Genital specimen) No Group B Streptococcus (GBS) isolated [facility] CBC Anemia Panel with Reflex , PregnancyOrdered By: Genoveva Read on 06-15-2023 Reflex added, Anemia panel [facility] Comment on above: Ferritin, Vitamin B1 2, Folate, and TIBC [facility] CBC panel Auto (Bld)on 06-15 Erythrocyte distribution width (RBC) [Ratio] 11.9 % 11.5 - 14.5 % [facility] Hematocrit (Bld) [Volume fraction] 32.0 % Low 36.0 - 46.0 % [facility] Hemoglobin (Bld) [Mass/Vol] 10.2 g/dL Low 12.0 - 16.0 g/dL [facility] Interpretation and review of laboratory results Abnormal [facility] MCH (RBC) [Entitic mass] 26.3 pg 26.0 - 34.0 pg [facility] MCHC (RBC) [Mass/Vol] 31.9 g/dL Low 32.0 - 36.0 g/dL [facility] MCV (RBC) [Entitic vol] 83 fL 80 - 100 fL [facility] Nucleated RBC/100 WBC (Bld) [Ratio] 0.0 % [facility] Platelets (Bld) [#/Vol] 339 10*3/uL [facility] RBC (Bld) [#/Vol] 3.88 10*6/uL Low Unive [facility] WBC (Bld) [#/Vol] 23.0 10*3/uL High Unive [facility] Erythrocyte distribution width (RBC) [Ratio] 11.9 % Normal 11.5-14.5 [facility] Comment on above: Performed By: #### 2 7298-9 #### FRANK TYLER ([id number]) [facility] ([facility]) [address] [place] [address] Hematocrit (Bld) [Volume fraction] 32.0 % Low 36.0-46.0 [facility] Comment on above: Performed By: #### 2 7298-9 #### FRANK TYLER (81432) [facility] ([facility]) [address] [place] [address] Hemoglobin (Bld) [Mass/Vol] 10.2 g/dL Low 12.0-16.0 [facility] Comment on above: Performed By: #### 2 7298-9 #### FRANK TYLER ([id number]) [facility] ([facility]) [address] [place] [address] MCH (RBC) [Entitic mass] 26.3 pg Normal 26.0-34.0 [facility] Comment on above: Performed By: #### 2 7298-9 #### FRANK TYLER ([id number]) [facility] ([facility]) [address] [place] [address] MCHC (RBC) [Mass/Vol] 31.9 g/dL Low 32.0-36.0 [facility] Comment on above: Performed By: #### 2 7298-9 #### FRANK TYLER ([id number]) [facility] ([facility]) [address] [place] [address] MCV (RBC) [Entitic vol] 83 fL Normal 80-100 [facility] Comment on above: Performed By: #### 2 7298-9 #### FRANK TYLER ([id number]) [facility] ([facility]) [address] [place] [address] Nucleated RBC/100 WBC (Bld) [Ratio] 0.0 /100 WBCs Normal 0.0-0.0 [facility] Comment on above: Performed By: #### 2 7298-9 #### FRANK TYLER ([id number]) [facility] ([facility]) [address] [place] [address] Platelets (Bld) [#/Vol] 339 x10*3/uL Normal 150-450 [facility] Comment on above: Performed By: #### 2 7298-9 #### FRANK TYLER ([id number]) [facility] ([facility]) [address] [place] [address] RBC (Bld) [#/Vol] 3.88 x10*6/uL Low 4.00-5.20 [facility] Comment on above: Performed By: #### 2 7298-9 #### FRANK TYLER ([id number]) [facility] ([facility]) [address] [place] [address] WBC (Bld) [#/Vol] 23.0 x10*3/uL High 4.4-11.3 [facility] Comment on above: Performed By: #### 2 7298-9 #### FRANK TYLER ([id number]) [facility] ([facility]) [address] [place] [address] Cobalamin (Vitamin B12) [Mas s/Vol]on 06-15-2023 Non- 211 - 911 pg/mL First Trimester >=118 pg/mL Second Trimester >=130 pg/mL Third Trimester >= 99 pg/mL Please note results will not flag based on reference ranges above. [facility] Cobalaminson 06-15-2023 Cobalamin (Vitamin B12) [Mass/Vol] 304 pg/mL Normal [facility] Comment on above: Order Comment: Non-p regnancy 211 - 911 pg/mLFirst Trimester >=118 pg/mLSecond Trimester >=130 pg/mLThird Trimester >= 99 pg/mLPlease note results will not flag based on reference ranges above. Performed By: #### 2 4323-8 #### FRANK TYLER ([id number]) [facility] ([facility]) [address] [place] [id number] Ferritinon 06-15-2023 Ferritin [Mass/Vol] 15 ng/mL Low >15 [facility] Comment on above: Performed By: #### 2 4323-8 #### FRANK TYLER ([id number]) [facility] ([facility]) [address] [place] [address] Ferritin [Mass/Vol]on 2023 Interpretation and review of laboratory results Abnormal [facility] Ferritin, Pregnancyon 2023 Ferritin [Mass/Vol] 15 ng/mL Low 15 - PIN F ng/mL [facility] Folateon 06-15-2023 Folate [Mass/Vol] 10.6 ng/mL Normal >5.0 [facility] Comment on above: Order Comment: Low < 3.4Borderline 3.4-5.0Normal >5.0Biotin interference may cause falsely elevated results. Patients taking a Biotin dose of up to 5 mg/day should refrain from taking Biotin for 24 hours before sample collection. Providers may contact their local laboratory for further information. Performed By: #### 2 4323-8 #### FRANK TYLER (21887) [facility] ([facility]) [address] [place] [address] Folate [Mass/Vol]on 01-11-20 24 Interpretation and review of laboratory results Normal [facility] Low <3.4 Borderline 3.4-5.0 Normal >5.0 Biotin interference may cause falsely elevated results. Patients taking a Biotin dose of up to 5 mg/day should refrain from taking Biotin for 24 hours before sample collection. Providers may contact their local laboratory for further information. [facility] Folate, Pregnancyon 06-15-19 24 Folate [Mass/Vol] 10.6 ng/mL 5.0 - PINF ng/mL [facility] Gas panelon 06-15-2023 Inhaled oxygen concentration 21 % Normal [facility] Comment on above: Order Comment: PRN p er provider discretion. Performed By: #### 2 7298-9 #### FRANK TYLER ([id number]) [facility] ([facility]) [address] [place] [address] Gas panel (BldCoA)on 024 Base excess Calc (BldCoA) [Moles/Vol] -5.2 mmol/L -10.8 - -0.5 mmol/L [facility] CO2 (BldCoA) [Partial pressure] 65 [facility] HCO3 (BldCoA) [Moles/Vol] 24.3 mmol/L 15.0 - 29.0 mmol/L [facility] Inhaled oxygen concentration 21 % [facility] Interpretation and review of laboratory results Abnormal [facility] Oxygen (BldCoA) [Partial pressure] 28 [facility] Oxyhemoglobin (BldCoA) [Mass fraction] 36.0 % Low 94.0 - 98.0 % [facility] pH (BldCoA) 7.18 pH 7.08 - 7.39 pH [facility] SaO2% (BldCoA) [Mass fraction] 37 % 3 - 69 % [facility] Base excess Calc (BldCoA) [Moles/Vol] -5.2 mmol/L Normal -10.8--0.5 [facility] Comment on above: Order Comment: PRN p er provider discretion. Performed By: #### 2 7298-9 #### FRANK TYLER ([id number]) [facility] ([facility]) [address] [place] [address] CO2 (BldCoA) [Partial pressure] 65 mm Hg Normal 31-75 [facility] Comment on above: Order Comment: PRN p er provider discretion. Performed By: #### 2 7298-9 #### FRANK TYLER ([id number]) [facility] ([facility]) [address] [place] [address] HCO3 (BldCoA) [Moles/Vol] 24.3 mmol/L Normal 15.0-29.0 [facility] Comment on above: Order Comment: PRN p er provider discretion. Performed By: #### 2 7298-9 #### FRANK TYLER ([id number]) [facility] ([facility]) [address] [place] [address] Oxygen (BldCoA) [Partial pressure] 28 mm Hg Normal 5-31 [facility] Comment on above: Order Comment: PRN p er provider discretion. Performed By: #### 2 7298-9 #### FRANK TYLER ([id number]) [facility] ([facility]) [address] [place] [address] Oxyhemoglobin (BldCoA) [Mass fraction] 36.0 % Low 94.0-98.0 [facility] Comment on above: Order Comment: PRN p er provider discretion. Performed By: #### 2 7298-9 #### FRANK TYLER (85773) [facility] ([facility]) [address] [place] [address] pH (BldCoA) 7.18 pH Normal 7.08-7.39 [facility] Comment on above: Order Comment: PRN p er provider discretion. Performed By: #### 2 7298-9 #### FRANK TYLER (40129) [facility] ([facility]) [address] [place] [address] SaO2% (BldCoA) [Mass fraction] 37 % Normal 3-69 [facility] Comment on above: Order Comment: PRN p er provider discretion. Performed By: #### 2 7298-9 #### FRANK TYLER ([id number]) [facility] ([facility]) [address] [place] [address] Gas panel (BldCoV)on 024 Base excess Calc (BldCoV) [Moles/Vol] -4.6 mmol/L -8.1 - -0.5 mmol/L [facility] CO2 (BldCoV) [Partial pressure] 46 [facility] HCO3 (BldCoV) [Moles/Vol] 22.1 mmol/L 16.0 - 26.0 mmol/L [facility] Inhaled oxygen concentration 21 % [facility] Interpretation and review of laboratory results Abnormal [facility] Oxygen (BldCoV) [Partial pressure] 39 High [facility] Oxyhemoglobin (BldCoV) [Mass fraction] 66.3 % Low 94.0 - 98.0 % [facility] pH (BldCoV) 7.29 pH 7.19 - 7.47 pH [facility] SaO2% (BldCoV) [Mass fraction] 68 % 16 - 84 % [facility] Base excess Calc (BldCoV) [Moles/Vol] -4.6 mmol/L Normal -8.1--0.5 [facility] Comment on above: Order Comment: PRN p er provider discretion. Performed By: #### 2 7298-9 #### FRANK TYLER ([id number]) [facility] ([facility]) [address] [place] [address] CO2 (BldCoV) [Partial pressure] 46 mm Hg Normal 22-53 [facility] Comment on above: Order Comment: PRN p er provider discretion. Performed By: #### 2 7298-9 #### FRANK TYLER ([id number]) [facility] ([facility]) [address] [place] [address] HCO3 (BldCoV) [Moles/Vol] 22.1 mmol/L Normal 16.0-26.0 [facility] Comment on above: Order Comment: PRN p er provider discretion. Performed By: #### 2 7298-9 #### FRANK TYLER ([id number]) [facility] ([facility]) [address] [place] [address] Oxygen (BldCoV) [Partial pressure] 39 mm Hg High 13-37 [facility] Comment on above: Order Comment: PRN p er provider discretion. Performed By: #### 2 7298-9 #### FRANK TYLER ([id number]) [facility] ([facility]) [address] [place] [address] Oxyhemoglobin (BldCoV) [Mass fraction] 66.3 % Low 94.0-98.0 [facility] Comment on above: Order Comment: PRN p er provider discretion. Performed By: #### 2 7298-9 #### FRANK TYLER ([id number]) [facility] ([facility]) [address] [place] [address] pH (BldCoV) 7.29 pH Normal 7.19-7.47 [facility] Comment on above: Order Comment: PRN p er provider discretion. Performed By: #### 2 7298-9 #### FRAKN TYLER ([id number]) [facility] ([facility]) [address] [place] [address] SaO2% (BldCoV) [Mass fraction] 68 % Normal 16-84 [facility] Comment on above: Order Comment: PRN p er provider discretion. Performed By: #### 2 7298-9 #### FRANK TYLER ([id number]) [facility] ([facility]) [id number] [place] [address] Iron and Iron binding capaci ty panelon 06-15-2023 Iron [Mass/Vol] 43 ug/dL See below [facility] Comment on above: IRON- Non- Female 14-17y 28 - 175 ug/dL Non- Female >=18y 35 - 150 ug/dL First Trimester 72 - 143 ug/dL Second Trimester 44 - 178 ug/dL Third Trimester 30 - 193 ug/dL Please note results will not flag based on reference ranges above. Iron binding capacity [Mass/Vol] [facility] Comment on above: One or more of the a nalytes used in this calculation is outside the analytical range. TIBC- Non- 240 - 445 ug/dL First Trimester 278 - 403 ug/dL Second Trimester 325 - 514 ug/dL Third Trimester 359 - 609 ug/dL Please note results will not flag based on reference ranges above. Iron binding capacity.unsaturated [Mass/Vol] ug/dL ug/dL [facility] Iron saturation [Mass fraction] [facility] Comment on above: % SATURATION-PREGNAN CY Non- [...] Iron [Mass/Vol] 43 ug/dL Normal See below [facility] Comment on above: Result Comment: IRON - Non- Female 14-17y 28 - 175 ug/dL Non- Female >=18y 35 - 150 ug/dL First Trimester 72 - 143 ug/dL Second Trimester 44 - 178 ug/dL Third Trimester 30 - 193 ug/dL Please note results will not flag based on reference ranges above. Performed By: #### 2 7298-9 #### FRANK TYLER ([id number]) [facility] ([facility]) [address] [place] [address] Iron binding capacity [Mass/Vol] Normal [facility] Comment on above: Result Comment: One [...] By: #### 2 7298-9 #### FRANK TYLER ([id number]) [facility] ([facility]) [address] [place] [address] Iron binding capacity.unsaturated [Mass/Vol] >450 Normal [facility] Comment on above: Performed By: #### 2 7298-9 #### FRANK TYLER ([id number]) [facility] ([facility]) [address] [place] [address] Iron saturation [Mass fraction] Normal [facility] Comment on above: Result Comment: % [...] By: #### 2 7298-9 #### FRANK TYLER ([id number]) [facility] ([facility]) [address] [place] [address] No Panel Informationon 06-15 [facility] REFLEX ADDED, ANEMIA PANELon 06-15-2023 REFLEX ADDED, ANEMIA PANEL Normal [facility] Comment on above: Result Comment: Ferr itin, Vitamin B12, Folate, and TIBC Performed By: #### 2 7298-9 #### FRANK TYLER ([id number]) [facility] ([facility]) [address] [place] [address] Surgical pathology studyon 0 06-15-2023 Surgical pathology study Pathology report.total SEE COMMENT Surgical Pathology Case: [id number] Authorizing Provider: Kayleen Loredo MD Collected: 06/15/2023 0622 Ordering Location: [facility] Received: 06/16/2023 [facility] 2 Obstetrics and Gynecology Pathologist: Ryan Forebs MD Specimen: PLACENTA SINGLE Path report.final diagnosis [...] located 3.0 cm from the nearest margin. Bung Driver sections are submitted in 5 cassettes. LMP Summary of Cassettes: Specimen Label Site A 1 umbilical cord sections 2 membrane rolls 3 placental parenchyma, umbilical cord insertion site 4 placental parenchyma 5 placental parenchyma/rubbery area maternal surface Normal [facility] Vitamin B12, Pregnancyon Cobalamin (Vitamin B12) [Mass/Vol] 304 pg/mL [facility] Blood type and Indirect anti body screen panel (Bld)on 06-14-2023 ABO group Nom (Bld) A [facility] Blood group antibody screen Ql Negative [facility] D Ag Ql (Bld) Positive [facility] ABO group Nom (Bld) A Normal [facility] Comment on above: Performed By: #### 2 7298-9 #### FRANK TYLER ([id number]) [facility] ([facility]) [address] [place] [address] Blood group antibody screen Ql Negative Normal [facility] Comment on above: Performed By: #### 2 7298-9 #### FRANK TYLER ([id number]) [facility] ([facility]) [address] [place] [address] D Ag Ql (Bld) Positive Normal [facility] Comment on above: Performed By: #### 2 7298-9 #### FRANK TYLER ([id number]) [facility] ([facility]) [address] [place] [address] CBC panel Auto (Bld)on 06-14 Erythrocyte distribution width (RBC) [Ratio] 11.8 % 11.5 - 14.5 % [facility] Hematocrit (Bld) [Volume fraction] 28.6 % Low 36.0 - 46.0 % [facility] Hemoglobin (Bld) [Mass/Vol] 9.0 g/dL Low 12.0 - 16.0 g/dL [facility] Interpretation and review of laboratory results Abnormal [facility] MCH (RBC) [Entitic mass] 26.6 pg 26.0 - 34.0 pg [facility] MCHC (RBC) [Mass/Vol] 31.5 g/dL Low 32.0 - 36.0 g/dL [facility] MCV (RBC) [Entitic vol] 85 fL 80 - 100 fL [facility] Nucleated RBC/100 WBC (Bld) [Ratio] 0.2 % High [facility] Platelets (Bld) [#/Vol] 316 10*3/uL [facility] RBC (Bld) [#/Vol] 3.38 10*6/uL Low Unive [facility] WBC (Bld) [#/Vol] 12.0 10*3/uL High Unive [facility] Erythrocyte distribution width (RBC) [Ratio] 11.8 % Normal 11.5-14.5 [facility] Comment on above: Performed By: #### 2 7298-9 #### FRANK TYLER ([id number]) [facility] ([facility]) [address] [place] [address] Hematocrit (Bld) [Volume fraction] 28.6 % Low 36.0-46.0 [facility] Comment on above: Performed By: #### 2 7298-9 #### FRANK TYLER ([id number]) [facility] ([facility]) [address] [place] [address] Hemoglobin (Bld) [Mass/Vol] 9.0 g/dL Low 12.0-16.0 [facility] Comment on above: Performed By: #### 2 7298-9 #### FRANK TYLER (38352) [facility] ([facility]) [address] [place] [address] MCH (RBC) [Entitic mass] 26.6 pg Normal 26.0-34.0 [facility] Comment on above: Performed By: #### 2 7298-9 #### FRANK TYLER ([id number]) [facility] ([facility]) [address] [place] [address] MCHC (RBC) [Mass/Vol] 31.5 g/dL Low 32.0-36.0 [facility] Comment on above: Performed By: #### 2 7298-9 #### FRANK TYLER ([id number]) [facility] ([facility]) [address] [place] [address] MCV (RBC) [Entitic vol] 85 fL Normal 80-100 [facility] Comment on above: Performed By: #### 2 7298-9 #### FRANK TYLER ([id number]) [facility] ([facility]) [address] [place] [address] Nucleated RBC/100 WBC (Bld) [Ratio] 0.2 /100 WBCs High 0.0-0.0 [facility] Comment on above: Performed By: #### 2 7298-9 #### FRANK TYLER (46058) [facility] ([facility]) [address] [place] [address] Platelets (Bld) [#/Vol] 316 x10*3/uL Normal 150-450 [facility] Comment on above: Performed By: #### 2 7298-9 #### FRANK TYLER ([id number]) [facility] ([facility]) [address] [place] [address] RBC (Bld) [#/Vol] 3.38 x10*6/uL Low 4.00-5.20 [facility] Comment on above: Performed By: #### 2 7298-9 #### FRANK TYLER ([id number]) [facility] ([facility]) [address] [place] [address] WBC (Bld) [#/Vol] 12.0 x10*3/uL High 4.4-11.3 [facility] Comment on above: Performed By: #### 2 7298-9 #### FRANK TYLER ([id number]) [facility] ([facility]) [address] [place] [address] Comprehensive metabolic 2000 panelon 06-14-2023 Albumin BCP dye [Mass/Vol] 3.1 g/dL Low 3.4 - 5.0 g/dL [facility] ALP [Catalytic activity/Vol] 196 U/L High 33 - 110 U/L [facility] ALT With P-5'-P [Catalytic activity/Vol] 15 U/L 7 - 45 U/L [facility] Comment on above: Patients treated wit h Sulfasalazine may generate falsely decreased results for ALT. Anion gap [Moles/Vol] 13 mmol/L 10 - 20 mmol/L [facility] AST With P-5'-P [Catalytic activity/Vol] 19 U/L 9 - 39 U/L [facility] Bilirubin [Mass/Vol] 0.3 mg/dL 0.0 - 1 .2 mg/dL [facility] Calcium [Mass/Vol] 8.6 mg/dL 8.6 - 10. 6 mg/dL [facility] Chloride [Moles/Vol] 106 mmol/L 98 - 10 7 mmol/L [facility] CO2 [Moles/Vol] 23 mmol/L 21 - 32 mmol/L [facility] Creatinine [Mass/Vol] 0.59 mg/dL 0.50 - 1.05 mg/dL [facility] eGFR - PINF [facility] Comment on above: Calculations of andrey mated GFR are performed using the 2020 CKD-EPI Study Refit equation without the race variable for the IDMS-Traceable creatinine methods. https://jasn.asnjournals.org/content//ASN.8744543 988 Glucose [Mass/Vol] 76 mg/dL 74 - 99 mg/dL [facility] Interpretation and review of laboratory results Abnormal [facility] Potassium [Moles/Vol] 4.3 mmol/L 3.5 - 5.3 mmol/L [facility] Protein [Mass/Vol] 6.0 g/dL Low 6.4 - 8.2 g/dL [facility] Sodium [Moles/Vol] 138 mmol/L 136 - 145 mmol/L [facility] Urea nitrogen [Mass/Vol] 10 mg/dL 6 - 23 mg/dL [facility] Albumin BCP dye [Mass/Vol] 3.1 g/dL Low 3.4-5.0 [facility] Comment on above: Performed By: #### 2 7298-9 #### FRANK TYLER ([id number]) [facility] ([facility]) [address] [place] [address] ALP [Catalytic activity/Vol] 196 U/L High 33-110 [facility] Comment on above: Performed By: #### 2 7298-9 #### FRANK TYLER ([id number]) [facility] ([facility]) [address] [place] [address] ALT With P-5'-P [Catalytic activity/Vol] 15 U/L Normal 7-45 [facility] Comment on above: Result Comment: Zaira ents treated with Sulfasalazine may generate falsely decreased results for ALT. Performed By: #### 2 7298-9 #### FRANK TYLER ([id number]) [facility] ([facility]) [address] [place] [address] Anion gap [Moles/Vol] 13 mmol/L Normal 10-20 [facility] Comment on above: Performed By: #### 2 7298-9 #### FRANK TYLER ([id number]) [facility] ([facility]) [address] [place] [address] AST With P-5'-P [Catalytic activity/Vol] 19 U/L Normal 9-39 [facility] Comment on above: Performed By: #### 2 7298-9 #### FRANK TYLER ([id number]) [facility] ([facility]) [address] [place] [address] Bilirubin [Mass/Vol] 0.3 mg/dL Normal 0.0-1.2 [facility] Comment on above: Performed By: #### 2 7298-9 #### FRANK TYLER ([id number]) [facility] ([facility]) [address] [place] [address] Calcium [Mass/Vol] 8.6 mg/dL Normal 8.6-10.6 [facility] Comment on above: Performed By: #### 2 7298-9 #### FRANK TYLER ([id number]) [facility] ([facility]) [address] [place] [address] Chloride [Moles/Vol] 106 mmol/L Normal 98-107 [facility] Comment on above: Performed By: #### 2 7298-9 #### FRANK TYLER ([id number]) [facility] ([facility]) [address] [place] [address] CO2 [Moles/Vol] 23 mmol/L Normal 21-32 [facility] Comment on above: Performed By: #### 2 7298-9 #### FRANK TYLER ([id number]) [facility] ([facility]) [address] [place] [address] Creatinine [Mass/Vol] 0.59 mg/dL Normal 0.50-1.05 [facility] Comment on above: Performed By: #### 2 7298-9 #### FRANK TYLER ([id number]) [facility] ([facility]) [address] [place] [address] GFR/1.73 sq M.predicted MDRD (S/P/Bld) [Vol rate/Area] mL/min/{1.73_m2} Normal >60 [facility] Comment on above: Result Comment: Calc ulations of estimated GFR are performed using the 2020 CKD-EPI Study Refit equation without the race variable for the IDMS-Traceable creatinine methods. https://jasn.asnjournals.org/content//ASN.6781767 988 Performed By: #### 2 7298-9 #### FRANK TYLER ([id number]) [facility] ([facility]) [address] [place] [address] Glucose [Mass/Vol] 76 mg/dL Normal 74-99 [facility] Comment on above: Performed By: #### 2 7298-9 #### FRANK TYLER ([id number]) [facility] ([facility]) [address] [place] [address] Potassium [Moles/Vol] 4.3 mmol/L Normal 3.5-5.3 [facility] Comment on above: Performed By: #### 2 7298-9 #### FRANK TYLER ([id number]) [facility] ([facility]) [address] [place] [address] Protein [Mass/Vol] 6.0 g/dL Low 6.4-8.2 [facility] Comment on above: Performed By: #### 2 7298-9 #### FRANK TYLER ([id number]) [facility] ([facility]) [address] [place] [address] Sodium [Moles/Vol] 138 mmol/L Normal 136-145 [facility] Comment on above: Performed By: #### 2 7298-9 #### FRANK TYLER ([id number]) [facility] ([facility]) [address] [place] [address] Urea nitrogen [Mass/Vol] 10 mg/dL Normal 6-23 [facility] Comment on above: Performed By: #### 2 7298-9 ###Inderjit TYLER ([id number]) [facility] ([facility]) [address] [place] [address] Syphillis Screen, with refle x VDRLOrdered By: Buck Marshall on 06-14-2023 T. pallidum Ab Ql (S) Non-Reactive Nonreactive [facility] Comment on above: No significant level of Treponema pallidum antibody detected. Repeat testing in 2 to 4 weeks may be considered if early infection or incubating syphilis infection is suspected. T. pallidum Ab Ql (S)Ordered By: Buck Marshall on 06-14-2023 Interpretation and review of laboratory results Normal [facility] Treponema pallidum Abon 06-05 T. pallidum Ab Ql (S) Non-Reactive Normal Nonreactive [facility] Comment on above: Order Comment: This test is for Syphilis screening, for Syphilis monitoring order RPR with Titer, Syphilis Monitoring Result Comment: No s ignificant level of Treponema pallidum antibody detected. Repeat testing in 2 to 4 weeks may be considered if early infection or incubating syphilis infection is suspected. Performed By: #### 2 7298-9 #### FRANK TYLER ([id number]) [facility] ([facility]) [address] [place] [address] Blood type and Indirect anti body screen panel (Bld)on 06-13-2023 ABO group Nom (Bld) A [facility] Blood group antibody screen Ql Negative [facility] D Ag Ql (Bld) Positive [facility] ABO group Nom (Bld) A Normal [facility] Comment on above: Performed By: #### 3 4532-2 #### ÁNEGL Morton ([id number]) [facility] ([facility]) [address] [place] [id number] Blood group antibody screen Ql Negative Normal [facility] Comment on above: Performed By: #### 3 4532-2 #### ÁNGEL Morton ([id number]) [facility] ([facility]) [address] [place] [address] D Ag Ql (Bld) Positive Normal [facility] Comment on above: Performed By: #### 3 4532-2 #### ÁNGEL Morton ([id number]) [facility] [address] [place] [address] CBC W Auto Differential pane l (Bld)on 06-13-2023 Basophils (Bld) [#/Vol] 0.07 10*3/uL [facility] Basophils/100 WBC (Bld) 0.6 % 0.0 - 2.0 % [facility] Eosinophils (Bld) [#/Vol] 0.10 10*3/uL [facility] Eosinophils/100 WBC (Bld) 0.8 % 0.0 - 6.0 % [facility] Erythrocyte distribution width (RBC) [Ratio] 11.7 % 11.5 - 14.5 % [facility] Hematocrit (Bld) [Volume fraction] 28.3 % Low 36.0 - 46.0 % [facility] Hemoglobin (Bld) [Mass/Vol] 9.1 g/dL Low 12.0 - 16.0 g/dL [facility] Immature granulocytes (Bld) [#/Vol] 0.24 10*3/uL [facility] Immature granulocytes/100 WBC (Bld) 1.9 % High 0.0 - 0.9 % [facility] Comment on above: Immature Granulocyte Count (IG) includes promyelocytes, myelocytes and metamyelocytes but does not include bands. Percent differential counts (%) should be interpreted in the context of the absolute cell counts (cells/UL). Interpretation and review of laboratory results Abnormal [facility] Lymphocytes (Bld) [#/Vol] 2.64 10*3/uL [facility] Lymphocytes/100 WBC (Bld) 20.9 % 13.0 - 44.0 % [facility] MCH (RBC) [Entitic mass] 27.1 pg 26.0 - 34.0 pg [facility] MCHC (RBC) [Mass/Vol] 32.2 g/dL 32.0 - 36.0 g/dL [facility] MCV (RBC) [Entitic vol] 84 fL 80 - 100 fL [facility] Monocytes (Bld) [#/Vol] 0.84 10*3/uL [facility] Monocytes/100 WBC (Bld) 6.7 % 2.0 - 10.0 % [facility] Neutrophils (Bld) [#/Vol] 8.73 10*3/uL High [facility] Comment on above: Percent differential counts (%) should be interpreted in the context of the absolute cell counts (cells/uL). Neutrophils/100 WBC (Bld) 69.1 % 40.0 - 80.0 % [facility] Nucleated RBC/100 WBC (Bld) [Ratio] 0.3 % High [facility] Platelets (Bld) [#/Vol] 337 10*3/uL [facility] RBC (Bld) [#/Vol] 3.36 10*6/uL Low [facility] WBC (Bld) [#/Vol] 12.6 10*3/uL High [facility] Basophils (Bld) [#/Vol] 0.07 x10*3/uL Normal 0.00-0.10 [facility] Comment on above: Performed By: #### 5 7021-8 #### ÁNGEL Morton ([id number]) [facility] ([facility]) [address] [place] [address] Basophils/100 WBC (Bld) 0.6 % Normal 0.0-2.0 [facility] Comment on above: Performed By: #### 5 7021-8 #### ÁNGEL Morton ([id number]) [facility] ([facility]) [address] [place] [address] Eosinophils (Bld) [#/Vol] 0.10 x10*3/uL Normal 0.00-0.70 [facility] Comment on above: Performed By: #### 5 7021-8 #### ÁNGEL Morton ([id number]) [facility] ([facility]) [address] [place] [address] Eosinophils/100 WBC (Bld) 0.8 % Normal 0.0-6.0 [facility] Comment on above: Performed By: #### 5 7021-8 #### ÁNGEL Morton ([id number]) [facility] ([facility]) [address] [place] [address] Erythrocyte distribution width (RBC) [Ratio] 11.7 % Normal 11.5-14.5 [facility] Comment on above: Performed By: #### 5 7021-8 #### ÁNGEL Morton ([id number]) [facility] ([facility]) [address] [place] [address] Hematocrit (Bld) [Volume fraction] 28.3 % Low 36.0-46.0 [facility] Comment on above: Performed By: #### 5 7021-8 #### ÁNGEL Morton ([id number]) [facility] ([facility]) [address] [place] [address] Hemoglobin (Bld) [Mass/Vol] 9.1 g/dL Low 12.0-16.0 [facility] Comment on above: Performed By: #### 5 7021-8 #### ÁNGEL Morton ([id number]) [facility] ([facility]) [address] [place] [address] Immature granulocytes (Bld) [#/Vol] 0.24 x10*3/uL Normal 0.00-0.70 [facility] Comment on above: Performed By: #### 5 7021-8 #### ÁNGEL Morton ([id number]) [facility] ([facility]) [address] [place] [address] Immature granulocytes/100 WBC (Bld) 1.9 % High 0.0-0.9 [facility] Comment on above: Result Comment: Sheila ture Granulocyte Count (IG) includes promyelocytes, myelocytes and metamyelocytes but does not include bands. Percent differential counts (%) should be interpreted in the context of the absolute cell counts (cells/UL). Performed By: #### 5 7021-8 #### ÁNGEL Morton ([id number]) [facility] ([facility]) [address] [place] [address] [place] [address] Lymphocytes (Bld) [#/Vol] 2.64 x10*3/uL Normal 1.20-4.80 [facility] Comment on above: Performed By: #### 5 7021-8 #### ÁNGEL Morton ([id number]) [facility] ([facility]) [address] [place] [address] Lymphocytes/100 WBC (Bld) 20.9 % Normal 13.0-44.0 [facility] Comment on above: Performed By: #### 5 7021-8 #### ÁNGEL Morton ([id number]) [facility] ([facility]) [address] [place] [address] MCH (RBC) [Entitic mass] 27.1 pg Normal 26.0-34.0 [facility] Comment on above: Performed By: #### 5 7021-8 #### ÁNGEL Morton ([id number]) [facility] ([facility]) [address] [place] [address] MCHC (RBC) [Mass/Vol] 32.2 g/dL Normal 32.0-36.0 [facility] Comment on above: Performed By: #### 5 7021-8 #### ÁNGEL Morton ([id number]) [facility] ([facility]) [address] [place] [address] MCV (RBC) [Entitic vol] 84 fL Normal 80-100 [facility] Comment on above: Performed By: #### 5 7021-8 #### ÁNGEL Morton ([id number]) [facility] ([facility]) [address] [place] [address] Monocytes (Bld) [#/Vol] 0.84 x10*3/uL Normal 0.10-1.00 [facility] Comment on above: Performed By: #### 5 7021-8 #### ÁNGEL Morton ([id number]) [facility] ([facility]) [address] [place] [address] Monocytes/100 WBC (Bld) 6.7 % Normal 2.0-10.0 [facility] Comment on above: Performed By: #### 5 7021-8 #### ÁNGEL Morton ([id number]) [facility] ([facility]) [address] [place] [address] Neutrophils (Bld) [#/Vol] 8.73 x10*3/uL High 1.20-7.70 [facility] Comment on above: Result Comment: Perc ent differential counts (%) should be interpreted in the context of the absolute cell counts (cells/uL). Performed By: #### 5 7021-8 #### ÁNGEL Morton ([id number]) [facility] ([facility]) [address] [place] [address] Neutrophils/100 WBC (Bld) 69.1 % Normal 40.0-80.0 [facility] Comment on above: Performed By: #### 5 7021-8 #### ÁNGEL Morton ([id number]) [facility] ([facility]) [address] [place] [address] Nucleated RBC/100 WBC (Bld) [Ratio] 0.3 /100 WBCs High 0.0-0.0 [facility] Comment on above: Performed By: #### 5 7021-8 #### ÁNGEL Morton ([id number]) [facility] ([facility]) [address] [place] [address] Platelets (Bld) [#/Vol] 337 x10*3/uL Normal 150-450 [facility] Comment on above: Performed By: #### 5 7021-8 #### ÁNGEL Morton ([id number]) [facility] ([facility]) [address] [place] [address] RBC (Bld) [#/Vol] 3.36 x10*6/uL Low 4.00-5.20 [facility] Comment on above: Performed By: #### 5 7021-8 #### ÁNGEL Morton ([id number]) [facility] ([facility]) [address] [place] [address] 26597 WBC (Bld) [#/Vol] 12.6 x10*3/uL High 4.4-11.3 [facility] Comment on above: Performed By: #### 5 7021-8 #### ÁNGEL Morton ([id number]) [facility] ([facility]) [address] [place], [place] [id number] Comprehensive metabolic 2000 panelon 06-13-2023 Albumin BCP dye [Mass/Vol] 3.1 g/dL Low 3.4 - 5.0 g/dL [facility] ALP [Catalytic activity/Vol] 189 U/L High 33 - 110 U/L [facility] ALT With P-5'-P [Catalytic activity/Vol] 17 U/L 7 - 45 U/L [facility] Comment on above: Patients treated wit h Sulfasalazine may generate falsely decreased results for ALT. Anion gap [Moles/Vol] 13 mmol/L 10 - 20 mmol/L [facility] AST With P-5'-P [Catalytic activity/Vol] 21 U/L 9 - 39 U/L [facility] Bilirubin [Mass/Vol] 0.3 mg/dL 0.0 - 1 .2 mg/dL [facility] Calcium [Mass/Vol] 8.5 mg/dL Low 8.6 - 10. 6 mg/dL [facility] Chloride [Moles/Vol] 107 mmol/L 98 - 10 7 mmol/L [facility] CO2 [Moles/Vol] 24 mmol/L 21 - 32 mmol/L [facility] Creatinine [Mass/Vol] 0.65 mg/dL 0.50 - 1.05 mg/dL [facility] eGFR - PINF [facility] Comment on above: Calculations of andrey mated GFR are performed using the 2020 CKD-EPI Study Refit equation without the race variable for the IDMS-Traceable creatinine methods. https://jasn.asnjournals.org/content/early//ASN.7981176 988 Glucose [Mass/Vol] 83 mg/dL 74 - 99 mg/dL [facility] Interpretation and review of laboratory results Abnormal [facility] Potassium [Moles/Vol] 4.0 mmol/L 3.5 - 5.3 mmol/L [facility] Protein [Mass/Vol] 6.2 g/dL Low 6.4 - 8.2 g/dL [facility] Sodium [Moles/Vol] 140 mmol/L 136 - 145 mmol/L [facility] Urea nitrogen [Mass/Vol] 9 mg/dL 6 - 23 mg/dL [facility] Albumin BCP dye [Mass/Vol] 3.1 g/dL Low 3.4-5.0 [facility] Comment on above: Performed By: #### 2 4323-8 #### ÁNGEL Morton ([id number]) [facility] ([facility]) [address] [place] [address] ALP [Catalytic activity/Vol] 189 U/L High 33-110 [facility] Comment on above: Performed By: #### 2 4323-8 #### ÁNGEL Morton ([id number]) [facility] ([facility]) [address] [place] [address] 87055 ALT With P-5'-P [Catalytic activity/Vol] 17 U/L Normal 7-45 [facility] Comment on above: Result Comment: Zaira ents treated with Sulfasalazine may generate falsely decreased results for ALT. Performed By: #### 2 4323-8 #### ÁNGEL Morton ([id number]) [facility] ([facility]) [address] [place] [address] 68094 Anion gap [Moles/Vol] 13 mmol/L Normal 10-20 [facility] Comment on above: Performed By: #### 2 4323-8 #### ÁNGEL Morton ([id number]) [facility] ([facility]) [address] [place] [address] AST With P-5'-P [Catalytic activity/Vol] 21 U/L Normal 9-39 [facility] Comment on above: Performed By: #### 2 4323-8 #### ÁNGEL MILLER L ([id number]) [facility] ([facility]) [address] [place] [address] Bilirubin [Mass/Vol] 0.3 mg/dL Normal 0.0-1.2 [facility] Comment on above: Performed By: #### 2 4323-8 #### ÁNGEL Morton ([id number]) [facility] ([facility]) [address] [place] [address] 86749 Calcium [Mass/Vol] 8.5 mg/dL Low 8.6-10.6 [facility] Comment on above: Performed By: #### 2 4323-8 #### ÁNGEL MILLER L ([id number]) [facility] ([facility]) [address] [place] [address] 48200 Chloride [Moles/Vol] 107 mmol/L Normal 98-107 [facility] Comment on above: Performed By: #### 2 4323-8 #### ÁNGEL MILLER L ([id number]) [facility] ([facility]) [address] [place] [address] 45020 CO2 [Moles/Vol] 24 mmol/L Normal 21-32 [facility] Comment on above: Performed By: #### 2 4323-8 #### ÁNGEL Morton ([id number]) [facility] ([facility]) [address] [place] [address] 25922 Creatinine [Mass/Vol] 0.65 mg/dL Normal 0.50-1.05 [facility] Comment on above: Performed By: #### 2 4323-8 #### ÁNGEL MILLER L ([id number]) [facility] ([facility]) [address] [place] [address] 74694 GFR/1.73 sq M.predicted MDRD (S/P/Bld) [Vol rate/Area] mL/min/{1.73_m2} Normal >60 [facility] Comment on above: Result Comment: Calc ulations of estimated GFR are performed using the 2020 CKD-EPI Study Refit equation without the race variable for the IDMS-Traceable creatinine methods. https://jasn.asnjournals.org/content//ASN.3832373 988 Performed By: #### 2 4323-8 #### ÁNGEL Morton ([id number]) [facility] ([facility]) [address] [place] [address] 72112 Glucose [Mass/Vol] 83 mg/dL Normal 74-99 [facility] Comment on above: Performed By: #### 2 4323-8 #### ÁNGEL Morton ([id number]) [facility] ([facility]) [address] [place] [address] 11097 Potassium [Moles/Vol] 4.0 mmol/L Normal 3.5-5.3 [facility] Comment on above: Performed By: #### 2 4323-8 #### ÁNGEL Morton ([id number]) [facility] ([facility]) [address] [place] [address] 72176 Protein [Mass/Vol] 6.2 g/dL Low 6.4-8.2 [facility] Comment on above: Performed By: #### 2 4323-8 #### ÁNGEL Morton ([id number]) [facility] ([facility]) [address] [place] [address] 74614 Sodium [Moles/Vol] 140 mmol/L Normal 136-145 [facility] Comment on above: Performed By: #### 2 4323-8 #### ÁNGEL Morton ([id number]) [facility] ([facility]) [address] [place] [address] 90983 Urea nitrogen [Mass/Vol] 9 mg/dL Normal 6-23 [facility] Comment on above: Performed By: #### 2 4323-8 #### ÁNGEL Morton ([id number]) [facility] ([facility]) [address] [place] [address] 58128 LDH Lactate to pyruvate reac tion [Catalytic activity/Vol]on 06-13-2023 Interpretation and review of laboratory results Normal [facility] Lactate Dehydrogenaseon LDH Lactate to pyruvate reaction [Catalytic activity/Vol] 217 U/L 84 - 246 U/L [facility] Lactate dehydrogenaseon LDH Lactate to pyruvate reaction [Catalytic activity/Vol] 217 U/L Normal 84-246 [facility] Comment on above: Performed By: #### 1 4804-9 #### ÁNGEL Morton ([id number]) [facility] ([facility]) [address] [place] [address] 42877 No Panel Informationon 06-13 Interpretation and review of laboratory results Abnormal [facility] Proteinon 06-13-2023 Protein Qn (U) 15 mg/dL Normal 5-24 [facility] Comment on above: Performed By: #### 2 7298-9 #### ÁNGEL Morton ([id number]) [facility] ([facility]) [address] [place] [address] 12491 Protein Qn (U)on 06-13-2023 Creatinine (U) [Mass/Vol] 45.1 mg/dL 20.0 - 320.0 mg/dL [facility] Interpretation and review of laboratory results Abnormal [facility] Protein/Creatinine (U) [Mass ratio] 0.33 mg/g High [facility] Creatinine (U) [Mass/Vol] 45.1 mg/dL Normal 20.0-320.0 [facility] Comment on above: Performed By: #### 2 7298-9 #### ÁNGEL Morton ([id number]) [facility] ([facility]) [address] [place] [address]753 Protein/Creatinine (U) [Mass ratio] 0.33 mg/mg Creat High 0.00-0.17 [facility] Comment on above: Performed By: #### 2 7298-9 #### ÁNGEL Morton ([id number]) [facility] ([facility]) [address] [place] [address] 52076 Protein, Urine Randomon Protein Qn (U) 15 mg/dL 5 - 24 mg/dL [facility] Streptococcus.beta-hemolytic on 06-13-2023 Streptococcus.beta-h emolytic Org specific cx Ql (Genital specimen) Test: Group B Streptococcus (GBS) Screen, Culture Specimen Source: Vaginal/Rectal Specimen Type: Swab Specimen Date: 06/13/2023 4:05 PM Result Date: 06/16/2023 12:07 PM Result Status: Final result Abnormal: No Resulting Lab: [facility] [id number] [place] [address] CULTURE No Group B Streptococcus (GBS) isolated Normal [facility] Comment on above: Performed By: #### 2 7298-9 #### FRANK TYLER ([id number]) [facility] ([facility]) [id number] [place] [address] Urinalysis complete panel (U )on 06-13-2023 Appearance (U) Hazy Abnormal Clear [facility] Bilirubin (U) [Mass/Vol] Negative NEGATIVE [facility] Color (U) Yellow Straw, Yellow [facility] Glucose Auto test strip (U) [Mass/Vol] Negative NEGATIVE mg/dL [facility] Ketones (U) [Mass/Vol] Negative NEGATIVE mg/dL [facility] Leukocyte esterase Auto test strip Ql (U) LARGE (3+) Abnormal NEGATIVE [facility] Nitrite Auto test strip Ql (U) Negative NEGATIVE [facility] pH (U) 7.0 [pH] 5.0, 5.5, 6.0, 6.5, 7.0, 7.5, 8.0 [facility] Protein (U) [Mass/Vol] Negative NEGATIVE mg/dL [facility] RBC (U) [#/Vol] Negative NEGATIVE [facility] Specific gravity (U) [Rel density] 1.006 1.005 - 1.035 [facility] Urobilinogen (U) [Mass/Vol] mg/dL NINF - 2.0 mg/dL [facility] Appearance (U) Hazy Normal Clear [facility] Comment on above: Performed By: #### 2 4356-8 #### ÁNGEL Morton ([id number]) [facility] ([facility]) [address] [place] [address] Bilirubin (U) [Mass/Vol] Negative Normal NEGATIVE [facility] Comment on above: Performed By: #### 2 4356-8 #### ÁNGEL Morton ([id number]) [facility] ([facility]) [address] [place] [address] 71329 Color (U) Yellow Normal Straw, Yellow [facility] Comment on above: Performed By: #### 2 4356-8 #### ÁNGEL Morton ([id number]) [facility] ([facility]) [address] [place] [address]354 Glucose Auto test strip (U) [Mass/Vol] Negative Normal NEGATIVE [facility] Comment on above: Performed By: #### 2 4356-8 #### ÁNGEL Morton ([id number]) [facility] ([facility]) [address] [place] [address]251 Ketones (U) [Mass/Vol] Negative Normal NEGATIVE [facility] Comment on above: Performed By: #### 2 4356-8 #### ÁNGEL Morton ([id number]) [facility] ([facility]) [address] [place] [address] 86418 Leukocyte esterase Auto test strip Ql (U) LARGE (3+) Abnormal NEGATIVE [facility] Comment on above: Performed By: #### 2 4356-8 #### ÁNGEL Morton ([id number]) [facility] ([facility]) [address] [place] [address] 12557 Nitrite Auto test strip Ql (U) Negative Normal NEGATIVE [facility] Comment on above: Performed By: #### 2 4356-8 #### ÁNGEL Morton ([id number]) [facility] ([facility]) [address] [place] [address] 13733 pH (U) 7.0 [pH] Normal 5.0, 5.5, 6.0, 6.5, 7.0, 7.5, 8.0 [facility] Comment on above: Performed By: #### 2 4356-8 #### ÁNGEL Morton ([id number]) [facility] ([facility]) [address] [place] [address] 36569 Protein (U) [Mass/Vol] Negative Normal NEGATIVE [facility] Comment on above: Performed By: #### 2 4356-8 #### ÁNGEL Morton ([id number]) [facility] ([facility]) [address] [place] [address] 54958 RBC (U) [#/Vol] Negative Normal NEGATIVE [facility] Comment on above: Performed By: #### 2 4356-8 #### ÁNGEL Morton ([id number]) [facility] ([facility]) [address] [place] [address] 34497 Specific gravity (U) [Rel density] 1.006 Normal 1.005-1.035 [facility] Comment on above: Performed By: #### 2 4356-8 #### ÁNGEL Morton ([id number]) [facility] ([facility]) [address] [place] [address] 32123 Urobilinogen (U) [Mass/Vol] mg/dL Normal <2.0 [facility] Comment on above: Performed By: #### 2 4356-8 #### ÁNGEL Morton ([id number]) [facility] ([facility]) [address] [place] [address] 08468 Urinalysis microscopic panel Auto Ql (U)on 06-13-2023 Bacteria Auto (Urine sed) [#/Area] 3+ Abnormal NONE SEEN /HPF [facility] Epithelial cells.squamous Auto (Urine sed) [#/Area] 1-9 (SPARSE) Reference range not established. /HPF [facility] RBC Auto (Urine sed) [#/Area] 1-2 NONE, 1-2, 3-5 /HPF [facility] WBC Auto (Urine sed) [#/Area] 1-5 1-5, NONE /HPF [facility] Bacteria Auto (Urine sed) [#/Area] 3+ /HPF Abnormal NONE SEEN [facility] Comment on above: Performed By: #### 5 3315-8 #### ÁNGEL Morton ([id number]) [facility] ([facility]) [address] [place] [address] 51287 Epithelial cells.squamous Auto (Urine sed) [#/Area] 1-9 (SPARSE) Normal Reference range not established. [facility] Comment on above: Performed By: #### 5 3315-8 #### ÁNGEL Morton ([id number]) [facility] ([facility]) [address] [place] [address] RBC Auto (Urine sed) [#/Area] 1-2 Normal NONE, 1-2, 3-5 [facility] Comment on above: Performed By: #### 5 3315-8 #### ÁNGEL Morton ([id number]) [facility] ([facility]) [address] [place] [address] 17250 WBC Auto (Urine sed) [#/Area] 1-5 Normal 1-5, NONE [facility] Comment on above: Performed By: #### 5 3315-8 #### ÁNGEL Morton ([id number]) [facility] ([facility]) [address] [place], [place] [id number] Bacterial vaginosison 2023 Bacterial vaginosis Ql (Vag fld) [Interp] NIKKY SCORE 0 Interpretation of the Nikky Score 0-3.....Normal vaginal microbiota 4-6.....Intermediate results 7-10....Bacterial vaginosis Yeast ABSENT Clue cells ABSENT Normal ABSENT [place] Comment on above: Performed By: #### 6 9568-4 #### ÁNGEL Morton ([id number]) [facility] ([facility]) [address] [place], [place] [id number] CBC panel Auto (Bld)on 06-07 Erythrocyte distribution width (RBC) [Ratio] 11.7 % 11.5 - 14.5 % [facility] Hematocrit (Bld) [Volume fraction] 31.9 % Low 36.0 - 46.0 % [facility] Hemoglobin (Bld) [Mass/Vol] 10.2 g/dL Low 12.0 - 16.0 g/dL [facility] Interpretation and review of laboratory results Abnormal [facility] MCH (RBC) [Entitic mass] 26.9 pg 26.0 - 34.0 pg [facility] MCHC (RBC) [Mass/Vol] 32.0 g/dL 32.0 - 36.0 g/dL [facility] MCV (RBC) [Entitic vol] 84 fL 80 - 100 fL [facility] Nucleated RBC/100 WBC (Bld) [Ratio] 0.0 % [facility] Platelets (Bld) [#/Vol] 355 10*3/uL [facility] RBC (Bld) [#/Vol] 3.79 10*6/uL Low Unive [facility] WBC (Bld) [#/Vol] 12.1 10*3/uL High Unive [facility] Erythrocyte distribution width (RBC) [Ratio] 11.7 % Normal 11.5-14.5 [facility] Comment on above: Performed By: #### 5 8410-2 #### FRANK TYLER ([id number]) [facility] ([facility]) [address] [place] [address] Hematocrit (Bld) [Volume fraction] 31.9 % Low 36.0-46.0 [facility] Comment on above: Performed By: #### 5 8410-2 #### FRANK TYLER ([id number]) [facility] ([facility]) [address] [place] [address] Hemoglobin (Bld) [Mass/Vol] 10.2 g/dL Low 12.0-16.0 [facility] Comment on above: Performed By: #### 5 8410-2 #### FRANK TYLER ([id number]) [facility] ([facility]) [address] [place] [address] MCH (RBC) [Entitic mass] 26.9 pg Normal 26.0-34.0 [facility] Comment on above: Performed By: #### 5 8410-2 #### FRANK TYLER ([id number]) [facility] ([facility]) [address] [place] [address] MCHC (RBC) [Mass/Vol] 32.0 g/dL Normal 32.0-36.0 [facility] Comment on above: Performed By: #### 5 8410-2 #### FRANK TYLER ([id number]) [facility] ([facility]) [address] [place] [address] MCV (RBC) [Entitic vol] 84 fL Normal 80-100 [facility] Comment on above: Performed By: #### 5 8410-2 #### FRANK TYLER ([id number]) [facility] ([facility]) [address] [place] [address] Nucleated RBC/100 WBC (Bld) [Ratio] 0.0 /100 WBCs Normal 0.0-0.0 [facility] Comment on above: Performed By: #### 5 8410-2 #### FRANK TYLER ([id number]) [facility] ([facility]) [address] [place] [address] Platelets (Bld) [#/Vol] 355 x10*3/uL Normal 150-450 [facility] Comment on above: Performed By: #### 5 8410-2 #### FRANK TYLER ([id number]) [facility] ([facility]) [address] [place] [address] RBC (Bld) [#/Vol] 3.79 x10*6/uL Low 4.00-5.20 [facility] Comment on above: Performed By: #### 5 8410-2 #### FRANK TYLER ([id number]) [facility] ([facility]) [address] [place] [address] WBC (Bld) [#/Vol] 12.1 x10*3/uL High 4.4-11.3 [facility] Comment on above: Performed By: #### 5 8410-2 #### FRANK TYLER ([id number]) [facility] ([facility]) [address] [place] [address] Comprehensive metabolic 2000 panelon 06-07-2023 Albumin BCP dye [Mass/Vol] 3.4 g/dL 3.4 - 5.0 g/dL [facility] ALP [Catalytic activity/Vol] 212 U/L High 33 - 110 U/L [facility] ALT With P-5'-P [Catalytic activity/Vol] 11 U/L 7 - 45 U/L [facility] Comment on above: Patients treated wit h Sulfasalazine may generate falsely decreased results for ALT. Anion gap [Moles/Vol] 14 mmol/L 10 - 20 mmol/L [facility] AST With P-5'-P [Catalytic activity/Vol] 17 U/L 9 - 39 U/L [facility] Bilirubin [Mass/Vol] 0.4 mg/dL 0.0 - 1 .2 mg/dL [facility] Calcium [Mass/Vol] 8.6 mg/dL 8.6 - 10. 3 mg/dL [facility] Chloride [Moles/Vol] 102 mmol/L 98 - 10 7 mmol/L [facility] CO2 [Moles/Vol] 23 mmol/L 21 - 32 mmol/L [facility] Creatinine [Mass/Vol] 0.58 mg/dL 0.50 - 1.05 mg/dL [facility] GFR/1.73 sq M.predicted MDRD (S/P/Bld) [Vol rate/Area] - PINF [facility] Comment on above: Calculations of andrey mated GFR are performed using the 2020 CKD-EPI Study Refit equation without the race variable for the IDMS-Traceable creatinine methods. https://jasn.asnjournals.org/content//ASN.7393109 988 Glucose [Mass/Vol] 91 mg/dL 74 - 99 mg/dL [facility] Interpretation and review of laboratory results Abnormal [facility] Potassium [Moles/Vol] 3.8 mmol/L 3.5 - 5.3 mmol/L [facility] Protein [Mass/Vol] 7.2 g/dL 6.4 - 8.2 g/dL [facility] Sodium [Moles/Vol] 135 mmol/L Low 136 - 145 mmol/L [facility] Urea nitrogen [Mass/Vol] 7 mg/dL 6 - 23 mg/dL [facility] Albumin BCP dye [Mass/Vol] 3.4 g/dL Normal 3.4-5.0 [facility] Comment on above: Performed By: #### 2 4323-8 #### FRANK TYLER ([id number]) [facility] ([facility]) [address] [place] [address] ALP [Catalytic activity/Vol] 212 U/L High 33-110 [facility] Comment on above: Performed By: #### 2 4323-8 #### FRANK TYLER ([id number]) [facility] ([facility]) [address] [place] [address] ALT With P-5'-P [Catalytic activity/Vol] 11 U/L Normal 7-45 [facility] Comment on above: Result Comment: Zaira ents treated with Sulfasalazine may generate falsely decreased results for ALT. Performed By: #### 2 4323-8 #### FRANK TYLER (55662) [facility] ([facility]) [address] [place] [address] Anion gap [Moles/Vol] 14 mmol/L Normal 10-20 [facility] Comment on above: Performed By: #### 2 4323-8 #### FRANK TYLER ([id number]) [facility] ([facility]) [address] [place] [address] AST With P-5'-P [Catalytic activity/Vol] 17 U/L Normal 9-39 [facility] Comment on above: Performed By: #### 2 4323-8 #### FRANK TYLER ([id number]) [facility] ([facility]) [address] [place] [address] Bilirubin [Mass/Vol] 0.4 mg/dL Normal 0.0-1.2 [facility] Comment on above: Performed By: #### 2 4323-8 #### FRANK TYLER ([id number]) [facility] ([facility]) [address] [place] [address] Calcium [Mass/Vol] 8.6 mg/dL Normal 8.6-10.3 [facility] Comment on above: Performed By: #### 2 4323-8 #### FRANK TYLER ([id number]) [facility] ([facility]) [address] [place] [address] Chloride [Moles/Vol] 102 mmol/L Normal 98-107 [facility] Comment on above: Performed By: #### 2 4323-8 #### FRANK TYLER ([id number]) [facility] ([facility]) [address] [place] [address] CO2 [Moles/Vol] 23 mmol/L Normal 21-32 [facility] Comment on above: Performed By: #### 2 4323-8 #### FRANK TYLER (49036) [facility] ([facility]) [address] [place] [address] Creatinine [Mass/Vol] 0.58 mg/dL Normal 0.50-1.05 [facility] Comment on above: Performed By: #### 2 4323-8 #### FRANK TYLER ([id number]) [facility] ([facility]) [address] [place] [address] GFR/1.73 sq M.predicted MDRD (S/P/Bld) [Vol rate/Area] mL/min/{1.73_m2} Normal >60 [facility] Comment on above: Result Comment: Calc ulations of estimated GFR are performed using the 2020 CKD-EPI Study Refit equation without the race variable for the IDMS-Traceable creatinine methods. https://jasn.asnjournals.org/content/early/ASN.8535923 988 Performed By: #### 2 4323-8 #### FRANK TYLER ([id number]) [facility] ([facility]) [address] [place] [address] Glucose [Mass/Vol] 91 mg/dL Normal 74-99 [facility] Comment on above: Performed By: #### 2 4323-8 #### FRANK TYLER ([id number]) [facility] ([facility]) [address] [place] [address] Potassium [Moles/Vol] 3.8 mmol/L Normal 3.5-5.3 [facility] Comment on above: Performed By: #### 2 4323-8 #### FRANK TYLER ([id number]) [facility] ([facility]) [address] [place] [address] Protein [Mass/Vol] 7.2 g/dL Normal 6.4-8.2 [facility] Comment on above: Performed By: #### 2 4323-8 #### FRANK TYLER ([id number]) [facility] ([facility]) [address] [place] [address] Sodium [Moles/Vol] 135 mmol/L Low 136-145 [facility] Comment on above: Performed By: #### 2 4323-8 #### FRANK TYLER ([id number]) [facility] ([facility]) [address] [place] [address] Urea nitrogen [Mass/Vol] 7 mg/dL Normal 6-23 [facility] Comment on above: Performed By: #### 2 4323-8 #### FRANK TYLER ([id number]) [facility] ([facility]) [address] [place] [address] Proteinon 06-07-2023 Protein Qn (U) 46 mg/dL High 5-24 [facility] Comment on above: Performed By: #### 2 7298-9 #### FRANK TYLER ([id number]) [facility] ([facility]) [address] [place] [address] Protein Qn (U)on 06-07-2023 Creatinine (U) [Mass/Vol] 140.8 mg/dL 20.0 - 320.0 mg/dL [facility] Interpretation and review of laboratory results Abnormal [facility] Protein/Creatinine (U) [Mass ratio] 0.33 mg/g High [facility] Creatinine (U) [Mass/Vol] 140.8 mg/dL Normal 20.0-320.0 [facility] Comment on above: Performed By: #### 2 7298-9 #### FRANK TYLER ([id number]) [facility] ([facility]) [address] [place] [address] Protein/Creatinine (U) [Mass ratio] 0.33 mg/mg Creat High 0.00-0.17 [facility] Comment on above: Performed By: #### 2 7298-9 #### FRANK TYLER ([id number]) [facility] ([facility]) [address] [place] [address] Protein, Urine Randomon 01-0 Protein Qn (U) 46 mg/dL High 5 - 24 mg/dL [facility] Urinalysis, reflex to cultur chava 05-11-2023 Urine Reflexed to Culture Not Indicated Normal [facility] Comment on above: Performed By: #### U AR #### [facility] [address] [place] [address] Bilirubin Ql (U) Negative Normal Negative [facility] Comment on above: Performed By: #### U AR #### [facility] [address] [place] [address] Clarity (U) Clear Normal Clear [facility] Comment on above: Performed By: #### U AR #### [facility] [address] [place] [address] Color (U) Yellow Normal Straw/[place]t [facility] Comment on above: Performed By: #### U AR #### [facility] [address] [place] [address] Glucose Ql (U) Negative Normal Negative [facility] Comment on above: Performed By: #### U AR #### [facility] [address] [place] [address] Hemoglobin Ql (U) Negative Normal Negative [facility] Comment on above: Performed By: #### U AR #### [facility] [address] [place] [address] Ketones Ql (U) Negative Normal Negative [facility] Comment on above: Performed By: #### U AR #### [facility] [address] [place] [address] Leukocyte esterase Test strip Ql (U) Trace Normal Negative [facility] Comment on above: Performed By: #### U AR #### [facility] [address] [place] [address] Nitrite Ql (U) Negative Normal Negative [facility] Comment on above: Performed By: #### U AR #### [facility] [address] [place] [address] pH (U) 7.0 [pH] Normal 5.0-9.0 [facility] Comment on above: Performed By: #### U AR #### [facility] [address] [place] [address] Protein Ql (U) Negative Normal Negative [facility] Comment on above: Performed By: #### U AR #### [facility] [address] [place] [address] Specific gravity (U) [Rel density] 1.020 Normal 1.005-1.03 [facility] Comment on above: Performed By: #### U AR #### [facility] [address] [place] [address] Urobilinogen Qn (U) 0.2 {Khoa'U}/dL Normal < 2.0 [facility] Comment on above: Performed By: #### U AR #### [facility] [address] [place] [address] Urine Microscopicon 05-11-20 23 Epithelial cells LM Ql (Urine sed) 0-2 Normal [facility] Comment on above: Performed By: #### U ANTHONY #### [facility] [address] [place] [address] Urine Bacteria RARE Abnormal Negative [facility] Comment on above: Performed By: #### U ANTHONY #### [facility] [address] [place] [address] Urine RBC 0-2 Normal 0-2 [facility] Comment on above: Performed By: #### U ANTHONY #### [facility] [address] [place] [address] Urine WBC 0-2 Normal 0-5 [facility] Comment on above: Performed By: #### U ANTHONY #### [facility] [address] [place] [address] CBC panel Auto (Bld)on 04-19 Erythrocyte distribution width (RBC) [Ratio] 11.7 % Normal 11.5-14.5 [facility] Comment on above: Performed By: #### 5 8410-2 #### JOHN Kim ([id number]) [facility] ([facility]) [address] [place] [address] Hematocrit (Bld) [Volume fraction] 33.0 % Low 36.0-46.0 [facility] Comment on above: Performed By: #### 5 8410-2 #### JOHN Kim ([id number]) [facility] ([facility]) [address] [place] [address] Hemoglobin (Bld) [Mass/Vol] 11.0 g/dL Low 12.0-16.0 [facility] Comment on above: Performed By: #### 5 8410-2 #### JOHN Kim ([id number]) [facility] ([facility]) [address] [place] [address] MCH (RBC) [Entitic mass] 30.3 pg Normal 26.0-34.0 [facility] Comment on above: Performed By: #### 5 8410-2 #### JOHN Kim ([id number]) [facility] ([facility]) [address] [place] [address] MCHC (RBC) [Mass/Vol] 33.3 g/dL Normal 32.0-36.0 [facility] Comment on above: Performed By: #### 5 8410-2 #### JOHN Kim ([id number]) [facility] ([facility]) [address] [place] [address] MCV (RBC) [Entitic vol] 91 fL Normal 80-100 [facility] Comment on above: Performed By: #### 5 8410-2 #### JOHN Kim ([id number]) [facility] ([facility]) [address] [place] [address] Nucleated RBC/100 WBC (Bld) [Ratio] 0.0 /100 WBCs Normal 0.0-0.0 [facility] Comment on above: Performed By: #### 5 8410-2 #### JOHN Kim ([id number]) [facility] ([facility]) [address] [place] [address] Platelets (Bld) [#/Vol] 374 x10*3/uL Normal 150-450 [facility] Comment on above: Performed By: #### 5 8410-2 #### JOHN Kim ([id number]) [facility] ([facility]) [address] [place] [address] RBC (Bld) [#/Vol] 3.63 x10*6/uL Low 4.00-5.20 [facility] Comment on above: Performed By: #### 5 8410-2 #### JOHN Kim ([id number]) [facility] ([facility]) [address] [place] [address] WBC (Bld) [#/Vol] 12.3 x10*3/uL High 4.4-11.3 [facility] Comment on above: Performed By: #### 5 8410-2 #### JOHN Kim ([id number]) [facility] ([facility]) [address] [place] [address] Glucose^1H post 50 g glucose Caity 04-19-2023 Glucose 1 Hr post 50 g glucose PO [Mass/Vol] 90 mg/dL Normal <135 [facility] Comment on above: Order Comment: Diagn ostic value with glucose loading dose of 50 g. Reference values from [place] [employer]. Diabetes Care 2015;38(Suppl.1):S8-S16 Performed By: #### 1 504-0 #### JOHN GAGNONKEZIA Kim ([id number]) [facility] ([facility]) [address] [place] [address] REFLEX ADDED, ANEMIA PANELon 04-19-2023 REFLEX ADDED, ANEMIA PANEL Normal [facility] Comment on above: Result Comment: No r eflex Performed By: #### A PRFX #### ÁNGEL Morton ([id number]) [facility] [facility] ([facility]) [id number] [place] [id number] Cult, Urineon 01-13-2023 Bacteria identified Cx Nom (U) MG-OBGYN Nurse [facility] DO Work Phone: GC + Chlamydia By Amplified Detectionon 01-13-2023 C. trachomatis rRNA ISAK+probe Ql (Unsp spec) Negative Negative -OBGYN Nurse [facility] DO Work Phone: Comment on above: The APTIMA Combo 2 a ssay is FDA-approved for Chlamydia trachomatis and Neisseria gonorrhoeae testing on female endocervical and vaginal swabs, ThinPrep liquid pap samples, male urine samples and urethral swabs. Performance characteristics for Chlamydia trachomatis and Neisseria gonorrhoeae testing on specific obf-XCK-hohxlxwt sample types (female urine samples) have been validated by [facility]. This laboratory is certified by CLIA to perform high complexity testing. Samples from all other sites are not validated for this method. N. gonorrhoeae rRNA ISAK+probe Ql (Unsp spec) Negative Negative MG-OBGY Nurse [facility] DO Work Phone: Comment on above: SOURCE: Urine The AP TIN Combo 2 assay is FDA-approved for Chlamydia trachomatis and Neisseria gonorrhoeae testing on female endocervical and vaginal swabs, ThinPrep liquid pap samples, male urine samples and urethral swabs. Performance characteristics for Chlamydia trachomatis and Neisseria gonorrhoeae testing on specific ira-YWG-pcnjmjwp sample types (female urine samples) have been validated by [facility]. This laboratory is certified by CLIA to perform high complexity testing. Samples from all other sites are not validated for this method. HIV 1/2 ANTIGEN/ANTIBODY SCR EEN WITH REFLEX TO CONFIRMATIONon 01-13-2023 HIV 1+2 Ab Qn (S) Non-Reactive See Below [facility] DO Work Phone: Comment on above: SOURCE: Reference Ra nge: NONREACTIVE HIV Ag/Ab screen is performed using the Siemens [employer] HIV Ag/Ab Combo assay which detects the presence of HIV p24 antigen as well as antibodies to HIV-1 (Group M and O) and HIV-2..No laboratory evidence of HIV infection. If acute HIV infection is suspected, consider testing for HIV RNA by PCR (viral load). Hepatitis C Antibody Teston 01-13-2023 Hepatitis C Antibody Test Non-Reactive See Below [facility] DO Work Phone: Comment on above: [...] 01-13-2023 HCG ( test) Ql (U) Positive [facility] [address] M DO Work Phone: Laboratory - Blood bankon ABO group Nom (Bld) A [facility] DO Work Phone: Blood group antibody screen Ql Negative [facility] DO Work Phone: Rh immune globulin screen (Bld) [Interp] Positive [facility] DO Work Phone: Laboratory - Hematology and Cell countson 01-13-2023 Erythrocyte distribution width (RBC) [Ratio] 13.4 % See Below [facility] DO Work Phone: Comment on above: Reference Range: 11. 5 - 14.5 Hematocrit (Bld) [Volume fraction] 42.7 % See Below [facility] DO Work Phone: Comment on above: Reference Range: 36. 0 - 46.0 Hemoglobin (Bld) [Mass/Vol] 14.0 g/dL See Below [facility] DO Work Phone: Comment on above: Reference Range: 12. 0 - 16.0 MCHC (RBC) [Mass/Vol] 32.8 g/dL See Below [facility] DO Work Phone: Comment on above: Reference Range: 32. 0 - 36.0 MCV (RBC) [Entitic vol] 90 fL 80 - 100 [facility] DO Work Phone: Platelets (Bld) [#/Vol] 408 10*3/uL 150 - 450 [facility] DO Work Phone: RBC (Bld) [#/Vol] 4.76 {x10E12/L} See Below [facility] DO Work Phone: Comment on above: Reference Range: 4.0 0 - 5.20 WBC (Bld) [#/Vol] 9.4 10*3/uL 4.4 - 11.3 [facility] DO Work Phone: No Panel Informationon 01-13 NONE [facility] DO Work Phone: Rubella IgG Antibodyon 01-13 Rubella virus IgG IA Ql Positive [facility] DO Work Phone: Comment on above: INTERPRETATIVE [...] alteredresults in serological assays. SYPHILIS SCREENING WITH [facility] 01-13-2023 T. pallidum IgG+IgM IA Ql (S) Non-Reactive See Below [place] [facility] DO Work Phone: Comment on above: Reference Range: NON REACTIVENo serologic evidence of syphilis infection.If recent exposure is suspected, repeat syphilis testingis recommended in 2 to 4 weeks. Tobacco Screening.on 023 Adult depression screening assessment [facility] [address] [facility] Work Phone: Fall risk assessment a) No falls within the last year [facility] [address] M DO Work Phone: Last menstrual period start date 06Oct2022 [facility] [address] M DO Work Phone: Tobacco use status CP b) No [facility] [address] M DO Work Phone: US OB LESS THAN 14 WEEKS SIN GLE OR FIRST GESTATIONon 12-19-2022 US OB LESS THAN 14 WEEKS SINGLE OR FIRST GESTATION EXAMINATION: OBSTETRIC ULTRASOUND 12/19/2022 TECHNIQUE: Transabdominal sonographic evaluation of the pelvis was performed. COMPARISON: None. HISTORY: ORDERING SYSTEM PROVIDED HISTORY: Early stage of TECHNOLOGIST PROVIDED HISTORY: This procedure can be scheduled via [employer]. Access your [employer] account by visiting [employer]. Reason for exam:->Establish viability, confirm dating Reason [...] Martin Trinh MD 12/19/22 Final result Normal [facility] Single live intraute rine with an estimated gestational age of 10 weeks and 4 days. [facility] RADIOLOGY EXAMINATION: OBSTETRIC ULTRASOUND 12/19/2022 TECHNIQUE: Transabdominal sonographic evaluation of the pelvis was performed. COMPARISON: None. HISTORY: ORDERING SYSTEM PROVIDED HISTORY: Early stage of TECHNOLOGIST PROVIDED HISTORY: This procedure can be scheduled via [employer]. Access your [employer] account by visiting [employer]. Reason for exam:->Establish viability, confirm dating Reason [...] free fluid is noted in the pelvis. [facility] RADIOLOGY Martin Trinh MD - 12/19/2022 EXAMINATION: OBSTETRIC ULTRASOUND 12/19/2022 TECHNIQUE: Transabdominal sonographic evaluation of the pelvis was performed. COMPARISON: None. HISTORY: ORDERING SYSTEM PROVIDED HISTORY: Early stage of TECHNOLOGIST PROVIDED HISTORY: This procedure can be scheduled via [employer]. Access your [employer] account by visiting [employer]. Reason for exam:->Establish viability, confirm dating Reason [...] age of 10 weeks and 4 days. [facility] Rad[facility] Study observation (narrative) [facility] US OB LESS THAN 14 WEEKS SIN GLE OR FIRST GESTATIONOrdered By: Martin Trinh on 12-19-2022 [facility] Work Phone: C.trachomatis N.gonorrhoeae DNA ,Urineon 12-13-2022 Chlamydia trachomatis DNA, Urine Positive Abnormal Negative [facility] Neisseria gonorrhoeae DNA, Urine Negative Normal Negative [facility] Pain Mgt Drug Panel, Hi Res, Uron 12-12-2022 6-acetylmorphine (cutoff 20 ng/mL) Not detected Normal [facility] 7-Aminoclonazepam (cutoff 40 ng/mL) Not detected Normal [facility] Mixxr-GC-Deorelgsxl (cutoff 20 ng/mL) Not detected Normal [facility] Dxngq-BE-Etjajbycz (cutoff 20 ng/mL) Not detected Normal [facility] Alprazolam (cutoff 40 ng/mL) Not detected Normal [facility] Amphetamine (cutoff 100 ng/mL) Not detected Normal [facility] Barbiturates (cutoff 200 ng/mL) Not detected Normal [facility] Benzoylecgonine Ql (U) Not detected Normal [facility] Buprenorphine (cutoff 5 ng/mL) Not detected Normal [facility] Carisoprodol (cutoff 100 ng/mL) Not detected Normal [facility] Comment on above: Result Comment: The carisoprodol immunoassay has cross- reactivity to carisoprodol and meprobamate. Clonazepam (cutoff 20 ng/mL) Not detected Normal [facility] Codeine (cutoff 40 ng/mL) Not detected Normal [facility] Creatinine, Urine 197.1 mg/dL Normal 20.0-400.0 [facility] Diazepam (cutoff 50 ng/mL) Not detected Normal [facility] EER Pain Mgt Drug Panel High Res/EMIT U See Note Normal [facility] Comment on above: Result Comment: Auth orized individuals can access the [employer] Enhanced Report using the following link: [email or web address] Performed By: [employer] [address] [place] [address] Floor Nurse: Ernesto Pelayo MD, PhD Ethyl Glucuronide (cutoff 500 ng/mL) Not detected Normal [facility] Fentanyl (cutoff 2 ng/mL) Not detected Normal [facility] Gabapentin (cutoff 100 ng/mL) Not detected Normal [facility] Hydrocodone (cutoff 40 ng/mL) Not detected Normal [facility] Hydromorphone (cutoff 40 ng/mL) Not detected Normal [facility] Lorazepam (cutoff 60 ng/mL) Not detected Normal [facility] Marijuana Metabolite (cutoff 20 ng/mL) Not detected Normal [facility] Comment on above: Result Comment: INTE RPRETIVE INFORMATION: Marijuana Metabolite The cutoff for Marijuana Metabolite (immunoassay) was changed from 20 ng/mL to 50 ng/mL, effective October 17, 2022. MDA (cutoff 200 ng/mL) Not detected Normal [facility] MDEA-Shona (cutoff 200 ng/mL) Not detected Normal [facility] MDMA-Ecstasy (cutoff 200 ng/mL) Not detected Normal [facility] Meperidine metabolite (cutoff 50 ng/mL) Not detected Normal [facility] Methadone Ql (U) Not detected Normal [facility] Methamphetamine (cutoff 400 ng/mL) Not detected Normal [facility] Methylphenidate (cutoff 100 ng/mL) Not detected Normal [facility] Midazolam (cutoff 20 ng/mL) Not detected Normal [facility] Morphine (cutoff 20 ng/mL) Not detected Normal [facility] Naloxone (cutoff 100 ng/mL) Not detected Normal [facility] Norbuprenorphine (cutoff 20 ng/mL) Not detected Normal [facility] Nordiazepam (cutoff 50 ng/mL) Not detected Normal [facility] Norfentanyl (cutoff 2 ng/mL) Not detected Normal [facility] Norhydrocodone (cutoff 100 ng/mL) Not detected Normal [facility] Noroxycodone (cutoff 100 ng/mL) Not detected Normal [facility] Noroxymorphone (cutoff 100 ng/mL) Not detected Normal [facility] Oxazepam (cutoff 50 ng/mL) Not detected Normal [facility] Oxycodone (cutoff 40 ng/mL) Not detected Normal [facility] Oxymorphone (cutoff 40 ng/mL) Not detected Normal [facility] Pain Management Drug Panel See Below Normal [facility] Comment on above: Result Comment: Meth [...] developed and its performance characteristics determined by [employer]. It has not been cleared or approved by the [place] Food and Drug Administration. This test was performed in a CLIA certified laboratory and is intended for clinical purposes. PCP (cutoff 25 ng/mL) Not detected Normal [facility] Phentermine (cutoff 100 ng/mL) Not detected Normal [facility] Pregabalin (cutoff 100 ng/mL) Not detected Normal [facility] Tapentadol (cutoff 100 ng/mL) Not detected Normal [facility] Ycycrigqio-c-Alrx (cutoff 200 ng/mL) Not detected Normal [facility] Temazepam (cutoff 50 ng/mL) Not detected Normal [facility] Tramadol (cutoff 200 ng/mL) Not detected Normal [facility] Zolpidem (cutoff 20 ng/mL) Not detected Normal [facility] Trichomonas vaginalis by AMD on 12-11-2022 T. vaginalis Amplified Negative Normal Negative [facility] Comment on above: Result Comment: This test was developed and its performance characteristics determined by [employer]. It has not been cleared or approved [...] or for other forensic purposes. Performed By: [employer] [address] [place] [address] Floor Nurse: Ernesto Pelayo MD, PhD Performed By: #### [id number] #### [facility] [address] [place] [id number] Culture, Urineon 12-08-2022 Culture, Urine ORDER#: [id number] ORDERED BY: HINA WINTER SOURCE: Urine Clean Catch COLLECTED: 12/08/22 20:09 ANTIBIOTICS AT ANIBAL.: RECEIVED : 12/08/22 20:29 Culture, Urine FINAL 12/10/22 14:11 Cult,Urine: NO SIGNIFICANT GROWTH [place] [address] Normal [facility] Comment on above: Performed By: #### C XURN #### [facility] [address] [place] [address] Trichomonas vaginalis by AMD on 12-08-2022 Specimen source Nom (Unsp spec) Urine Normal [facility] Comment on above: Performed By: #### 0 [id number] #### [facility] [address] [place] [id number] Culture, Throaton 03-09-2022 Culture, Throat ORDER#: [id number] ORDERED BY: CARLA LIZARRAGA SOURCE: Throat Throat COLLECTED: 03/09/22 20:01 ANTIBIOTICS AT ANIBAL.: RECEIVED : 03/09/22 20:14 Culture, Throat FINAL 03/12/22 14:36 Cult,Throat: ORAL HARRIS PRESENT Performed at [facility] [address] [place] [id number] ([phone] Strep pyogenes (Beta Strep Group A) MODERATE GROWTH Normal [facility] Comment on above: Performed By: #### C XTHR #### [facility] [address] [place] [id number] HCG, Quantitative, Ordered By: Hina Winter on 10-19-2020 hCG Quant 8172 [facility]IU/mL [facility] Phone: Comment on above: Gestational Age Expe cted HCG values (mIU/ml) 3 weeks 5-72 4 weeks 708 5 weeks 217-8,245 6 weeks 152-32,177 8 weeks 31,366-149,094 12 weeks 27,107-201,615 16 weeks 8,904-55,332 18 weeks 9,649-55,271 [employer] Phone: HCG Quanton 10-18-2020 HCG Quant 41611.0 mIU/mL Normal [facility] Comment on above: Result Comment: Gest ational Age Expected HCG values (mIU/ml) 3 weeks -72 4 weeks 708 5 weeks 217-8,245 6 weeks 152-32,177 8 weeks 31,366-149,094 12 weeks 27,107-201,615 16 weeks 8,904-55,332 18 weeks 9,649-55,271 Performed By: #### H CGQ #### [facility] [address] [place] [id number] US OB LESS THAN 14 WEEKS SIN [...] [place] MD 10/18/20 Final result Normal [facility] US OB TRANSVAGINALon 05-16-2 021 US [...] [place] MD 10/18/20 Final result Normal [facility] Urinalysis, reflex to cultur chava 10-18-2020 Urine Reflexed to Culture Not Indicated Normal [facility] Comment on above: Performed By: #### U AR #### [facility] [address] [place] [address] Bilirubin Ql (U) Negative Normal Negative [facility] Comment on above: Performed By: #### U AR #### [facility] [address] [place] [address] Clarity (U) Clear Normal Clear [facility] Comment on above: Performed By: #### U AR #### [facility] [address] [address] Color (U) DARK YELLOW Abnormal [employer] [facility] Comment on above: Performed By: #### U AR #### [facility] [address] [place] [address] Glucose Ql (U) Negative Normal Negative [facility] Comment on above: Performed By: #### U AR #### [facility] [address] [place] [address] Hemoglobin Ql (U) LARGE Abnormal Negative [facility] Comment on above: Performed By: #### U AR #### [facility] [address] [place] [address] Ketones Ql (U) TRACE Abnormal Negative [facility] Comment on above: Performed By: #### U AR #### [facility] [address] [place] [address] Leukocyte esterase Test strip Ql (U) TRACE Abnormal Negative [facility] Comment on above: Performed By: #### U AR #### [facility] [address] [place] [address] Nitrite Ql (U) Negative Normal Negative [facility] Comment on above: Performed By: #### U AR #### [facility] [address] [place] [address] pH (U) 7.0 [pH] Normal 5.0-9.0 [facility] Comment on above: Performed By: #### U AR #### [facility] [address] [place] [address] Protein Ql (U) 30 mg/dL Abnormal Negative [facility] Comment on above: Performed By: #### U AR #### [facility] [address] [place] [address] Specific gravity (U) [Rel density] 1.030 Normal 1.005-1.03 [facility] Comment on above: Performed By: #### U AR #### [facility] [address] [place] [address] Urobilinogen Qn (U) 1.0 {Khoa'U}/dL Normal < 2.0 [facility] Comment on above: Performed By: #### U AR #### [facility] [address] [place] [address] Urine Microscopicon 10-19-19 21 Urine Bacteria FEW Abnormal Negative [facility] Comment on above: Performed By: #### U ANTHONY #### [facility] [address] [place] [address] Urine Epithelial Cells Auto 6-10 Normal 0-5 [facility] Comment on above: Performed By: #### U ANTHONY #### [facility] [address] [place] [address] Urine Hyaline Casts Auto 5-10 Normal 0-5 [facility] Comment on above: Performed By: #### U ANTHONY #### [facility] [address] [place] [address] Urine RBC Auto 20-50 Abnormal 0-5 [facility] Comment on above: Performed By: #### U ANTHONY #### [facility] [address] [place] [address] Urine WBC Auto 6-9 Abnormal 0-5 [facility] Comment on above: Performed By: #### U ANTHONY #### [facility] [address] [place] [address] HCG, Quantitative, Ordered By: Alexandre Casillas on 10-17-2020 hCG Quant 93942 mIU/mL [employer] Phone: Comment on above: Gestational Age Exp ected HCG values (mIU/ml) 3 weeks 5-72 4 weeks 10-708 5 weeks 217-8,245 6 weeks 152-32,177 8 weeks 31,366-149,094 12 weeks 27,107-201,615 16 weeks 8,904-55,332 18 weeks 9,649-55,271 [employer] Phone: Microscopic UrinalysisOrdere d By: Alexandre Casillas on 10-17-2020 Bacteria, UA FEW Abnormal Negative /HPF [employer] Work Phone: Epithelial Cells, UA 6-10 [employer] Work Phone: Hyaline Casts, UA 5-10 [employer] [facility] Work Phone: RBC, UA 20-50 Abnormal [employer] Phone: WBC, UA 6-9 Abnormal [employer] Phone: No Panel InformationOrdered By: Alexandre Casillas on 10-17-2020 Interpretation and review of laboratory results Abnormal [facility] Work Phone: [facility] [employer] Work Phone: POCT urine pregnancyOrdered By: Alexandre Casillas on 10-17-2020 Interpretation and review of laboratory results Normal [facility] [employer] Work Phone: Preg Test, Ur Positive [facility] Work Phone: QC OK? yes [facility] [employer] Work Phone: [facility] [employer] Work Phone: Urine Reflex to CultureOrder ed By: Alexandre Casillas on 10-17-2020 Bilirubin Urine Negative Negative [facility] Work Phone: Blood, Urine LARGE Abnormal Negative [facility] [employer] Work Phone: Clarity, UA Clear Clear [facility] [employer] Work Phone: Color, UA DARK YELLOW Abnormal St[employer] [facility] Work Phone: Glucose, Ur Negative Negative mg/dL [facility] [employer] Work Phone: Ketones Ql (U) TRACE Abnormal Negative mg/dL [facility] [employer] Work Phone: Leukocyte esterase Test strip Ql (U) TRACE Abnormal Negative [facility] [employer] Work Phone: Nitrite, Urine Negative Negative [facility] Work Phone: pH, UA 7.0 [facility] [employer] Work Phone: Protein (U) [Mass/Vol] 30 mg/dL Abnormal Negative [facility] [employer] Work Phone: Specific [place], UA 1.030 [facility] [employer] Work Phone: Urine Reflex to Culture Not Indicated [facility] [employer] Work Phone: Urobilinogen, Urine 1.0 <2.0 E.U./dL [facility] [employer] Work Phone: Vital Signs Date Time Vital Sign Value Performing Clinician Facility 11-14-2024 11:25-0400 Body mass index (BMI) [Ratio] 28.69 kg/m2 Jennifer De La Torre MD Work Phone: [facility] 11-14-2024 11:25-0400 Body weight 78.2 kg Jennifer De La Torre MD Work Phone: [facility] 11-14-2024 11:25-0400 Diastolic blood pressure 72 mm[Hg] Jennifer De La Torre MD Work Phone: [facility] 11-14-2024 11:25-0400 Systolic blood pressure 110 mm[Hg] Jennifer De La Torre MD Work Phone: [facility] 11-12-2024 18:30-0400 Diastolic blood pressure 78 mm[Hg] Alycia Schwochow POWDER CUTTING OPERATOR-CNM Work Phone: [facility] 11-12-2024 18:30-0400 Heart rate 84 /min Alycia Schwochow POWDER CUTTING OPERATOR-CNM Work Phone: [facility] 11-12-2024 18:30-0400 Respiratory rate 16 /min Alycia Schwochow POWDER CUTTING OPERATOR-CNM Work Phone: [facility] 11-12-2024 18:30-0400 SaO2% (BldA) [Mass fraction] 97 % Alycia Schwochow POWDER CUTTING OPERATOR-CNM Work Phone: [facility] 11-12-2024 18:30-0400 Systolic blood pressure 126 mm[Hg] Alycia Schwochow POWDER CUTTING OPERATOR-CNM Work Phone: [facility] 11-12-2024 16:01-0400 Body height 165.1 cm Alycia Schwochow POWDER CUTTING OPERATOR-CNM Work Phone: [facility] 11-12-2024 16:01-0400 Body mass index (BMI) [Ratio] 27.96 kg/m2 Alycia Schwochow POWDER CUTTING OPERATOR-CNM Work Phone: [facility] 11-12-2024 16:01-0400 Body temperature 98.4 [degF] Alycia Vicente POWDER CUTTING OPERATOR-CNM Work Phone: [facility] 11-12-2024 16:01-0400 Body weight 76.2 kg Alycia Vicente POWDER CUTTING OPERATOR-CNM Work Phone: [facility] 11-04-2024 15:07-0400 Body mass index (BMI) [Ratio] 28.06 kg/m2 Jennifer De La Torre MD Work Phone: [facility] 11-04-2024 15:07-0400 Body weight 76.48 kg Jennifer De La Torre MD Work Phone: [facility] 11-04-2024 15:07-0400 Diastolic blood pressure 64 mm[Hg] Jennifer De La Torre MD Work Phone: [facility] 11-04-2024 15:07-0400 Systolic blood pressure 102 mm[Hg] Jennifer De La Torre MD Work Phone: [facility] 10-21-2024 15:30-0400 Body mass index (BMI) [Ratio] 27.62 kg/m2 Jennifer De La Torre MD Work Phone: [facility] 10-21-2024 15:30-0400 Body weight 75.3 kg Jennifer De La Torre MD Work Phone: [facility] 10-21-2024 15:30-0400 Diastolic blood pressure 60 mm[Hg] Jennifer De La Torre MD Work Phone: [facility] 10-21-2024 15:30-0400 Systolic blood pressure 100 mm[Hg] Jennifer De La Torre MD Work Phone: [facility] 10-10-2024 10:52-0400 Body mass index (BMI) [Ratio] 27.12 kg/m2 Naren Bullard MD Work Phone: [facility] 10-10-2024 10:52-0400 Body weight 73.94 kg Naren Bullard MD Work Phone: [facility] 10-10-2024 10:52-0400 Diastolic blood pressure 58 mm[Hg] Naren Bullard MD Work Phone: [facility] 10-10-2024 10:52-0400 Heart rate 102 /min Naren Bullard MD Work Phone: [facility] 10-10-2024 10:52-0400 SaO2% (BldA) [Mass fraction] 97 % Naren Bullard MD Work Phone: [facility] 10-10-2024 10:52-0400 Systolic blood pressure 100 mm[Hg] Naren Bullard MD Work Phone: [facility] 10-06-2024 19:53-0400 Diastolic blood pressure 95 mm[Hg] Jose Lemjose elias DO Work Phone: [facility] 10-06-2024 19:53-0400 Heart rate 97 /min Jose Lemjose elias DO Work Phone: [facility] 10-06-2024 19:53-0400 Respiratory rate 18 /min Jose Lemjose elias DO Work Phone: [facility] 10-06-2024 19:53-0400 SaO2% (BldA) [Mass fraction] 94 % Jose Lemasters DO Work Phone: [facility] 10-06-2024 19:53-0400 Systolic blood pressure 149 mm[Hg] Jose Lemasters DO Work Phone: [facility] 10-06-2024 16:52-0400 Body height 165.1 cm Jose Lemasters DO Work Phone: [facility] 10-06-2024 16:52-0400 Body mass index (BMI) [Ratio] 27.29 kg/m2 Jose Lemasters DO Work Phone: [facility] 10-06-2024 16:52-0400 Body temperature 98.01 [degF] Jose Tr DO Work Phone: [facility] 10-06-2024 16:52-0400 Body weight 74.39 kg Jose Lemasters DO Work Phone: [facility] 09-23-2024 15:29-0400 Body mass index (BMI) [Ratio] 27.29 kg/m2 Tyrell Spencer MD Work Phone: [facility] 09-23-2024 15:29-0400 Body weight 74.39 kg Tyrell Spencer MD Work Phone: [facility] 09-23-2024 15:29-0400 Diastolic blood pressure 74 mm[Hg] Tyrell Spencer MD Work Phone: [facility] 09-23-2024 15:29-0400 Systolic blood pressure 112 mm[Hg] Tyrell Spencer MD Work Phone: [facility] 09-09-2024 14:31-0400 Body mass index (BMI) [Ratio] 27.29 kg/m2 Jennifer De La Torre MD Work Phone: [facility] 09-09-2024 14:31-0400 Body weight 74.39 kg Jennifer De La Torre MD Work Phone: [facility] 09-09-2024 14:31-0400 Diastolic blood pressure 70 mm[Hg] Jennifer De La Torre MD Work Phone: [facility] 09-09-2024 14:31-0400 Systolic blood pressure 110 mm[Hg] Jennifer De La Torre MD Work Phone: [facility] 08-12-2024 15:05-0400 Body mass index (BMI) [Ratio] 26.13 kg/m2 Tyrell Spencer MD Work Phone: [facility] 08-12-2024 15:05-0400 Body weight 71.22 kg Tyrell Spencer MD Work Phone: [facility] 08-12-2024 15:05-0400 Diastolic blood pressure 70 mm[Hg] Tyrell Spencer MD Work Phone: [facility] 08-12-2024 15:05-0400 Systolic blood pressure 118 mm[Hg] Tyrell Spencer MD Work Phone: [facility] 07-16-2024 14:15-0500 Body mass index (BMI) [Ratio] 25.63 kg/m2 Naren Bullard MD Work Phone: [facility] 07-16-2024 14:15-0500 Body weight 69.85 kg Naren Bullard MD Work Phone: [facility] 07-16-2024 14:15-0500 Diastolic blood pressure 64 mm[Hg] Naren Bullard MD Work Phone: [facility] 07-16-2024 14:15-0500 Systolic blood pressure 108 mm[Hg] Naren Bullard MD Work Phone: [facility] 06-10-2024 14:52-0500 Body height 165.1 cm Priscilla Jeffrey POWDER CUTTING OPERATOR.YARD WAREHOUSE WORKER Work Phone: [facility] 06-10-2024 14:52-0500 Body mass index (BMI) [Ratio] 24.99 kg/m2 Priscilla Jeffrey POWDER CUTTING OPERATOR.YARD WAREHOUSE WORKER Work Phone: [facility] 06-10-2024 14:52-0500 Body weight 68.13 kg Priscilla [place] POWDER CUTTING OPERATOR.YARD WAREHOUSE WORKER Work Phone: [facility] 06-10-2024 14:52-0500 Diastolic blood pressure 74 mm[Hg] Priscilla [place] POWDER CUTTING OPERATOR.YARD WAREHOUSE WORKER Work Phone: [facility] 06-10-2024 14:52-0500 Systolic blood pressure 126 mm[Hg] Priscilla Jeffrey POWDER CUTTING OPERATOR.YARD WAREHOUSE WORKER Work Phone: [facility] 06-19-2023 15:45-0500 Body temperature 99.3 [degF] Buck Kahn MD Work Phone: [facility] 06-19-2023 15:45-0500 Diastolic blood pressure 76 mm[Hg] Buck Kahn MD Work Phone: [facility] 06-19-2023 15:45-0500 Heart rate 94 /min Buck Kahn MD Work Phone: [facility] 06-19-2023 15:45-0500 Respiratory rate 18 /min Buck Kahn MD Work Phone: [facility] 06-19-2023 15:45-0500 SaO2% (BldA) [Mass fraction] 96 % Buck Kahn MD Work Phone: [facility] 06-19-2023 15:45-0500 Systolic blood pressure 128 mm[Hg] Buck Kahn MD Work Phone: [facility] 06-15-2023 04:47-0500 Body temperature 37.0 Buck Kahn MD Work Phone: [facility] 06-15-2023 04:46-0500 Body temperature 37.0 Buck Kahn MD Work Phone: [facility] 06-15-2023 04:31-0500 Body temperature 37.0 degrees Celsius BUCK KAHN [facility] Comment on above: Order Comment: PRN per provider discreti on. Performed By: #### 2 [id number] #### FRANK TYLER ([id number]) [facility] ([facility]) [address] [place] [address] 06-13-2023 11:51-0500 Body height 167.6 cm Buck Kahn MD Work Phone: [facility] 06-13-2023 11:51-0500 Body mass index (BMI) [Ratio] 31.31 kg/m2 Buck Kahn MD Work Phone: [facility] 06-13-2023 11:51-0500 Body weight 88 kg Buck Kahn MD Work Phone: [facility] 06-08-2023 20:28-0500 Diastolic blood pressure 82 mm[Hg] Diya Jenkins DO Work Phone: [facility] 06-08-2023 20:28-0500 Heart rate 83 /min Diya Jenkins DO Work Phone: 4(914)242-[address]81 [place] [address] 06-08-2023 20:28-0500 SaO2% (BldA) [Mass fraction] 98 % Diya Jenkins DO Work Phone: 6(437)063-034681 [place] [address] 06-08-2023 20:28-0500 Systolic blood pressure 124 mm[Hg] Diya Jenkins DO Work Phone: 2(122)788-615315 [place] [address] 06-07-2023 17:49-0500 Diastolic blood pressure 75 mm[Hg] Bryan Us MD Work Phone: 8(910)817-320581 [place] [address] 06-07-2023 17:49-0500 Heart rate 80 /min Bryan Us MD Work Phone: 9(343)280-408315 [place] [address] 06-07-2023 17:49-0500 Systolic blood pressure 133 mm[Hg] Bryan Us MD Work Phone: 2(719)373-314829 [place] [address] 06-07-2023 16:50-0500 Body mass index (BMI) [Ratio] 30.78 kg/m2 Bryan Us MD Work Phone: [facility] 06-07-2023 16:50-0500 Body temperature 98.6 [degF] Bryan Us MD Work Phone: 9(987)489-259081 [place] [address] 06-07-2023 16:50-0500 Body weight 86.5 kg Bryan Us MD Work Phone: 1(483)752-113481 [place] [address] 06-07-2023 16:48-0500 SaO2% (BldA) [Mass fraction] 97 % Bryan Us MD Work Phone: [facility] 01-13-2023 10:08-0400 Body height 167.64 cm No PCP None [facility] [id number] M DO Work Phone: 01-13-2023 10:08-0400 Body mass index (BMI) [Ratio] 25.2 kg/m2 No PCP None [facility] [id number] M DO Work Phone: 01-13-2023 10:08-0400 Body surface area Derived from formula 1.8 m2 No PCP None [facility] [id number] M DO Work Phone: 01-13-2023 10:08-0400 Body weight 70.82 kg No PCP None [facility] [id number] M DO Work Phone: 01-13-2023 10:08-0400 Diastolic blood pressure 70 mm[Hg] No PCP None [facility] [id number] M DO Work Phone: 01-13-2023 10:08-0400 Systolic blood pressure 120 mm[Hg] No PCP None [facility] [id number] M DO Work Phone: 01-13-2023 10:08-0400 75 1 No PCP None [facility] [id number] M DO Work Phone: Comment on above: 2-20_SPerc 01-13-2023 10:08-0400 85 1 No PCP None [facility] [id number] M DO Work Phone: Comment on above: 2-20_WPerc 01-13-2023 10:08-0400 80 1 No PCP None [facility] [id number] M DO Work Phone: Comment on above: BMIPerc 01-13-2023 10:08-0400 2 1 No PCP None [facility] 15717 M DO Work Phone: Comment on above: GRAV 01-13-2023 10:08-0400 0 1 No PCP None [facility] 706[address] M DO Work Phone: Comment on above: [facility] [employer] 10-19-2020 00:21-0400 Body temperature 98.2 [degF] Alexandre Casillas MD Work Phone: [facility] Work Phone: 10-19-2020 00:21-0400 Diastolic blood pressure 74 mm[Hg] Alexandre Casillas MD Work Phone: [employer] Work Phone: 10-19-2020 00:21-0400 Heart rate 88 /min Alexandre Casillas MD Work Phone: [employer] Work Phone: 10-19-2020 00:21-0400 Respiratory rate 20 /min Alexandre Casillas MD Work Phone: [employer] Work Phone: 10-19-2020 00:21-0400 SaO2% (BldA) [Mass fraction] 99 % Alexandre Casillas MD Work Phone: [employer] Work Phone: 10-19-2020 00:21-0400 Systolic blood pressure 110 mm[Hg] Alexandre Casillas MD Work Phone: [employer] Work Phone: 10-18-2020 23:37-0400 Body height 167.6 cm Alexandre Casillas MD Work Phone: [employer] Work Phone: 10-18-2020 23:37-0400 Body mass index (BMI) [Ratio] 23.46 kg/m2 Alexanrde Casillas MD Work Phone: [employer] Work Phone: 10-18-2020 23:37-0400 Body weight 65.94 kg Alexandre Casillas MD Work Phone: [employer] Work Phone: 10-18-2020 00:00-0400 Diastolic blood pressure 67 mm[Hg] Alexandre Casillas MD Work Phone: [employer] Work Phone: 10-18-2020 00:00-0400 Heart rate 86 /min Alexandre Casillas MD Work Phone: [employer] Work Phone: 10-18-2020 00:00-0400 SaO2% (BldA) [Mass fraction] 98 % Alexadnre Casillas MD Work Phone: [employer] Work Phone: 10-18-2020 00:00-0400 Systolic blood pressure 112 mm[Hg] Alexandre Casillas MD Work Phone: [employer] Work Phone: 10-17-2020 22:00-0400 Respiratory rate 20 /min Alexandre Casillas MD Work Phone: [employer] Work Phone: 10-17-2020 21:52-0400 Body height 167.6 cm Aleaxndre Casillas MD Work Phone: [employer] Work Phone: 10-17-2020 21:52-0400 Body mass index (BMI) [Ratio] 23.4 kg/m2 Alexandre Casillas MD Work Phone: [employer] Work Phone: 10-17-2020 21:52-0400 Body temperature 98.2 [degF] Alexandre Casillas MD Work Phone: [employer] Work Phone: 10-17-2020 21:52-0400 Body weight 65.77 kg Alexandre Casillas MD Work Phone: [employer] Work Phone: Encounters Encounter Date Encounter Type Care Provider Facility Start: 11-18-2024 End: 11-18-2024 ambulatory [facility] Start: 11-18-2024 End: 11-18-2024 Patient encounter procedure [facility] Comment on above: Population Health Na vigation Outreach ( to PCP/OB//) Start: 11-14-2024 End: 11-14-2024 ambulatory JENNIFER DE LA TORRE Facility:[facility] Start: 11-14-2024 End: 11-14-2024 Patient encounter procedure Jennifer De La Torre MD Work Phone: OB/Gynecology Comment on above: Supervision of high risk in third trimester (HCC) (Primary Dx); 37 weeks gestation of (HCC); Gallstones Start: 11-12-2024 End: 11-12-2024 Subsequent hospital visit by physician Vivek Ryan [facility] Comment on above: Arrived Start: 11-12-2024 End: 11-12-2024 Emergency department patient visit [facility] Start: 11-12-2024 End: 11-12-2024 Emergency department patient visit Alycia Vicente POWDER CUTTING OPERATOR-CNM Work Phone: [facility] Comment on above: Rib pain on right si de (Primary Dx); 37 weeks gestation of (HHS-HCC); Calculus of gallbladder without cholecystitis without obstruction Start: 11-08-2024 End: 11-08-2024 Telephone encounter Anayeli Murry POWDER CUTTING OPERATOR.CNM Work Phone: OB/Gynecology Comment on above: OB pain Start: 11-04-2024 End: 11-04-2024 Patient encounter procedure Jennifer De La Torre MD Work Phone: OB/Gynecology Comment on above: Supervision of high risk in third trimester (HCC) (Primary Dx); 36 weeks gestation of (HCC) Start: 11-04-2024 End: 11-04-2024 ambulatory JENNIFER DE LA TORRE Facility:[facility] Start: 10-21-2024 End: 10-21-2024 Patient encounter procedure Jennifer De La Torre MD Work Phone: OB/Gynecology Comment on above: Supervision of high risk in third trimester (HCC) (Primary Dx); 34 weeks gestation of (HCC); History of pre-eclampsia Start: 10-21-2024 End: 10-21-2024 ambulatory JENNIFER DE LA TORRE Facility:[facility] Start: 10-10-2024 End: 10-10-2024 Patient encounter [...] patient visit Jose Damon DO Work Phone: [facility] Comment on above: Pneumonia of left lo wer lobe due to infectious organism (Primary Dx) Start: 10-06-2024 End: 10-06-2024 ambulatory Linda Thomason RN NURSE POLICE RESERVES COMMANDER Comment on above: Shortness of Breath (Back pain//); Start: 10-03-2024 End: 10-03-2024 ambulatory No Primary Care Physician Facility:[facility] Start: 10-03-2024 End: 10-03-2024 Emergency department patient visit No Primary Care Physician Facility:[facility] Start: 09-23-2024 End: 09-23-2024 Patient encounter procedure Tyrell Spencer MD Work Phone: OB/Gynecology Comment on above: 30 weeks gestation o f (HCC) (Primary Dx); Late care (HCC); Supervision of high risk in third trimester (HCC) Start: 09-23-2024 End: 09-23-2024 ambulatory TYRELL SPENCER Facility:[facility] Start: 09-09-2024 End: 09-09-2024 Patient encounter procedure Jennifer De La Torre MD Work Phone: OB/Gynecology Comment on above: Supervision of high risk , antepartum (HCC) (Primary Dx); 28 weeks gestation of (HCC); Need for vaccination Start: 09-09-2024 End: 09-09-2024 ambulatory TYRELL SPENCER Facility:[facility] Start: 09-09-2024 End: 11-09-2024 Follow-up encounter Agnieszka Georges APRN.YARD WAREHOUSE WORKER Work Phone: OB/Gynecology Start: 09-06-2024 End: 09-06-2024 ambulatory Priscilla Murphy APRN.YARD WAREHOUSE WORKER Work Phone: OB/Gynecology Comment on above: Leg Pain Start: 08-12-2024 End: 08-12-2024 ambulatory TYRELL SPENCER Facility:[facility] Start: 08-12-2024 End: 08-12-2024 Patient encounter procedure Tyrell Spencer MD Work Phone: OB/Gynecology Comment on above: 24 weeks gestation o f (Primary Dx); Screening for diabetes mellitus; Supervision of high risk , antepartum; Need for influenza vaccination Start: 07-30-2024 End: 07-30-2024 ambulatory [facility] Facility:[facility] Start: 07-30-2024 End: 07-30-2024 Patient encounter procedure Whi Tech 1 Head Librarian [facility] Comment on above: Encounter for anatomic survey (Primary Dx); 22 weeks gestation of Start: 07-18-2024 End: 07-18-2024 Emergency department patient visit No Primary Care Physician Facility:[facility] Start: 07-18-2024 End: 07-18-2024 ambulatory [facility] Facility:[facility] Start: 07-18-2024 End: 07-18-2024 Patient encounter procedure Margo Bullard APRN.YARD WAREHOUSE WORKER Work Phone: [facility] Comment on above: Bilateral calf pain (Primary Dx) Start: 07-16-2024 End: 07-16-2024 ambulatory NAREN BULLARD Facility:[facility] Start: 07-16-2024 End: 07-16-2024 Patient encounter procedure Naren Bullard MD Work Phone: OB/Gynecology Comment on above: Supervision of high risk , antepartum (Primary Dx); Late care affecting in second trimester; Short interval between pregnancies complicating , antepartum; Hx of pre-eclampsia in prior , currently ; 20 weeks gestation of Start: 06-10-2024 End: 06-10-2024 ambulatory PRISCILLA MURPHY Facility:[facility] Start: 06-10-2024 End: 06-10-2024 Patient encounter procedure Priscilla Murphy APRN.YARD WAREHOUSE WORKER Work Phone: OB/Gynecology Comment on above: 15 weeks gestation o f (Primary Dx); Late care affecting in second trimester; Short interval between pregnancies complicating , antepartum; Hx of pre-eclampsia in prior , currently ; Supervision of high risk , antepartum Start: 10-25-2023 Patient encounter procedure Jose Velazquezjose elias DO Work Phone: [facility] Work Phone: Start: 07-11-2023 End: 07-11-2023 ambulatory [facility] Start: 06-13-2023 End: 06-19-2023 Evaluation and management of inpatient Buck Kahn MD Work Phone: [facility] Comment on above: Preeclampsia, third trimester (Primary Dx); Anemia of mother in , delivered with condition; Encounter for initial prescription of contraceptive pills Start: 06-09-2023 End: 06-09-2023 ambulatory [facility] Start: 06-08-2023 End: 06-08-2023 ambulatory DIYA Regalado [facility] Start: 06-08-2023 End: 06-08-2023 Subsequent hospital visit by physician Diya Jenkins DO Work Phone: [facility] Start: 06-07-2023 End: 06-07-2023 ambulatory ELSA Cabrera [facility] Start: 06-07-2023 End: 06-07-2023 Subsequent hospital visit by physician Bryan Us MD Work Phone: [facility] Comment on above: Proteinuria affectin g in third trimester (Primary Dx); Elevated blood pressure reading in office without diagnosis of hypertension Start: 05-30-2023 End: 05-30-2023 ambulatory [facility] Start: 05-18-[address] [facility] Start: 05-11-2023 End: 05-11-2023 Emergency department patient visit VIDA FRAIRE [facility] Start: 05-02-2023 End: 05-02-2023 ambulatory [facility] Start: 04-19-2023 End: 04-19-2023 ambulatory [facility] Start: 01-14-2023 Chart Update No PCP None [facility] M DO Work Phone: Start: 01-13-2023 Office outpatient ne w 45 minutes No PCP None [facility] [id number] M DO Work Phone: Start: 12-19-2022 End: 12-22-2022 ambulatory CORTNEY Cabrera [facility] Start: 12-19-2022 End: 12-21-2022 Subsequent hospital visit by physician [facility] Comment on above: Early stage of pregn isaac Start: 10-19-2020 End: 10-19-2020 Subsequent hospital visit by physician [facility] Comment on above: Threatened miscarria ge in early Start: 10-19-2020 End: 10-19-2020 Emergency department patient visit ALEXANDRE CASILLAS [facility] Start: 10-18-2020 End: 10-19-2020 Emergency department patient visit Alexandre Casillas MD Work Phone: [facility] ED Comment on above: Vaginal bleeding (Pr imary Dx); Threatened miscarriage Start: 10-17-2020 End: 10-18-2020 Emergency department patient visit CORTNEY Cabrera [facility] Start: 10-17-2020 End: 10-18-2020 Emergency department patient visit Alexandre Casillas MD Work Phone: [facility] Comment on above: Vaginal bleeding (Pr imary Dx); Intrauterine Patient encounter status No PCP None [facility] [id number] M DO Work Phone: Procedures Date Procedure [...] after 1st trimest 1 gestation Priscilla Murphy APRN.YARD WAREHOUSE WORKER Work Phone: Start: 06-10-2024 Antibody screen JENNIFER KENDALL Comment on above: Order Comment: Speci men Type: BLOOD SPECIMEN Ordering Facility: [facility] Address: [address] [place] [address] Performed By: #### T SPN #### [facility] [place] [id number] [address] [place] [address] [place] Start: 06-19-2023 ADULT [...] MILE Start: 06-13-2023 MICROSCOPIC ONLY, URINE [place] AUGDELOZ Start: 06-13-2023 PROTEIN, URINE RANDOM T JUANMAGDA [...] 4 wk transabdl 06/05 gestat Hina Winter POWDER CUTTING OPERATOR - CNM Work Phone: Start: 10-19-2020 Gonadotropin chorion ic quantitative Hina Hassancecy POWDER CUTTING OPERATOR - CN Work Phone: Start: 10-17-2020 End: [...] or Population) (1 - 1-dose 75+ series) [facility] Start: 08-04-2053 Zoster Vaccines (1 of 2) Zoste r Vaccines (1 of 2) [facility] Start: 09-09-2034 DTaP/Tdap/Td Vaccine s (9 - Td or Tdap) DTaP/Tdap/Td Vaccines (9 - Td or Tdap) [facility] Start: 09-09-2034 Urine microalbumin profile DTaP,Tdap,Td Vaccine (9 - Td or Tdap) [facility] Start: 04-19-2033 DTaP/Tdap/Td Vaccine s (8 - Td or Tdap) DTaP/Tdap/Td Vaccines (8 - Td or Tdap) [facility] Start: 04-19-2033 Urine microalbumin profile DTaP,Tdap,Td Vaccine (8 - Td or Tdap) [facility] Start: 01-24-2026 DTaP/Tdap/Td vaccine (7 - Td or Tdap) DTaP/Tdap/Td vaccine (7 - Td or Tdap) [facility] Start: 08-12-2025 Covid-19 Vaccine (1 - 2024-25 season) Covid-19 Vaccine ( season) [facility] Comment on above: Postponed from 02/03 (Declined at this time) Start: 06-10-2025 GC (Gonorrhea) Scree neelima (18-24) GC (Gonorrhea) Screening (18-24) [facility] Start: 06-10-2025 Screening for Chlamy karla trachomatis Chlamydia Screening (18-24) [facility] Start: 02-03-2025 Influenza vaccination Influenz a Vaccine (Season Ended) [facility] Start: 11-25-2024 End: 11-25-2024 Patient encounter procedure 11/25/2024 3:15 PM EDT Routine Office Visit OB/Gynecology [address] [place] [address] Anayeli Murry APRN.[facility] [address] [place] [address] OB OB/Gynecology Comment on above: OB Start: 11-18-2024 End: 11-18-2024 Patient encounter procedure 11/18/2024 3:10 PM EDT Routine Office Visit OB/Gynecology [address] [place] [address] Tyrell Spencer MD [address] [place] [address] OB OB/Gynecology Comment on above: OB Start: 11-14-2024 End: 11-14-2024 Patient encounter procedure 11/14/2024 11:20 AM EDT Routine Office Visit OB/Gynecology [address] [place] [address] Jennifer De La Torre MD [address] [place] [address] OB OB/Gynecology Comment on above: OB Start: 11-04-2024 End: 11-04-2024 Patient encounter procedure 11/04/2024 3:10 PM EDT Routine Office Visit OB/Gynecology [address] [place] [address] Jennifer De La Torre MD [address] [place] [address] OB OB/Gynecology Comment on above: OB Start: 10-21-2024 End: 10-21-2024 Patient encounter procedure OB/Gynecology Comment on above: NA OB Start: 10-14-2024 End: 10-14-2024 Patient encounter procedure 10/14/2024 2:30 PM EDT Routine Office Visit OB/Gynecology [address] [place] [address] Anayeli Murry APRN.CNM [address] [place] [address] OB OB/Gynecology Comment on above: OB Start: 10-11-2024 End: 10-11-2024 Patient encounter procedure 10/11/2024 8:45 AM EDT Routine Office Visit OB/Gynecology [address] [place] [address] Agnieszka Georges APRN.YARD WAREHOUSE WORKER [address] [place] [address] Pneumonia OB/Gynecology Comment on above: Pneumonia Start: 10-10-2024 End: 01-09-2025 CBC panel - Blood by Automated count COMPLETE BLOOD COUNT Lab Routine Anemia complicating , third trimester (HCC) Expected: 10/10/2024, Expires: 01/09/2025 [facility] Work Phone: Comment on above: Expected: 10/10/2024 , Expires: 01/09/2025 Start: 10-10-2024 End: 01-09-2025 Ferritin [Mass/volume] in Serum or Plasma FERRITIN Lab Routine Anemia complicating , third trimester (HCC) Expected: 10/10/2024, Expires: 01/09/2025 [facility] Comment on above: Expected: 10/10/2024 , Expires: 01/09/2025 Start: 10-10-2024 End: 01-09-2025 Iron and Iron binding capacity panel - Serum or Plasma IRON AND TIBC Lab Routine Anemia complicating , third trimester (HCC) Expected: 10/10/2024, Expires: 01/09/2025 [facility] Comment on above: Expected: 10/10/2024 , Expires: 01/09/2025 Start: 10-10-2024 End: 10-10-2024 Patient encounter procedure 10/10/2024 1:30 PM EDT Routine Office Visit OB/Gynecology [address] [place] [address] Jennifer De La Torre MD [address] [place] [address] NA OB/Gynecology Comment on above: NA Start: 09-23-2024 End: 09-23-2024 Patient encounter procedure 09/23/2024 3:40 PM EDT Routine Office Visit OB/Gynecology [address] [place] [address] Tyrell Spencer MD [address] [place] [address] OB OB/Gynecology Comment on above: OB Start: 09-09-2024 End: 09-09-2024 Patient encounter procedure 09/09/2024 2:40 PM EDT Routine Office Visit OB/Gynecology [address] [place] [address] Jennifer De La Torre MD [address] [place] [address] OB Routine OB/Gynecology Comment on above: OB Routine Start: 09-09-2024 End: 09-09-2024 ambulatory [facility] Comment on above: Glucose test and Lab s Start: 08-12-2024 End: 08-12-2024 Patient encounter procedure 08/12/2024 3:10 PM EDT Routine Office Visit OB/Gynecology [address] [place] [address] Tyrell Spencer MD [address] [place] [address] OB Routine OB/Gynecology Comment on above: OB Routine Start: 08-12-2024 End: 11-11-2024 ANEMIA REFLEX PANEL ANEMIA REFLEX PANEL Lab Routine 24 weeks gestation of Screening for diabetes mellitus Expected: 08/12/2024, Expires: 11/11/2024 [facility] Comment on above: Expected: 08/12/2024 , Expires: 11/11/2024 Start: 08-12-2024 End: 08-12-2025 GESTATIONAL GLUCOSE SCREEN, 1-HOUR, 50 GRAM, NON-FASTING GESTATIONAL GLUCOSE SCREEN, 1-HOUR, 50 GRAM, NON-FASTING Lab Routine 24 weeks gestation of Screening for diabetes mellitus Expected: 08/12/2024, Expires: 08/12/2025 [facility] Work Phone: Comment on above: Expected: 08/12/2024 , Expires: 08/12/2025 Start: 08-12-2024 End: 08-12-2025 SYPHILIS TREPONEMAL W/REFLEX SYPHILIS TREPONEMAL W/REFLEX Lab Routine 24 weeks gestation of Screening for diabetes mellitus Expected: 08/12/2024, Expires: 08/12/2025 [facility] Comment on above: Expected: 08/12/2024 , Expires: 08/12/2025 Start: 08-04-2024 Screening for malign ant neoplasm of cervix [facility] Start: 07-30-2024 End: 07-30-2024 Patient encounter procedure 07/30/2024 8:30 AM EST Routine Office Visit Maternal Medicine [address] [place] [address] 15 weeks gestation of [Z3A.15] [facility] Comment on above: 15 weeks gestation o f [Z3A.15] Start: 07-16-2024 End: 07-16-2024 Patient encounter procedure 07/16/2024 2:20 PM EST Routine Office Visit OB/Gynecology [address] [place] [address] Naren Bullard MD [address] [place] [address] new Ob 02/26/24 OB/Gynecology Comment on above: new Ob 02/26/24 Start: 07-08-2024 End: 07-08-2024 Patient encounter procedure [facility]aternal Medicine Comment on above: Anatomy Scan OB Routine Start: 06-10-2024 End: 09-09-2024 ANEMIA REFLEX PANEL [facility] Work Phone: Comment on above: Expected: 06/10/2024 , Expires: 09/09/2024 Start: 06-10-2024 End: 09-09-2024 Hemoglobin A1c in Blood [facility] Comment on above: Expected: 06/10/2024 , Expires: 09/09/2024 Start: 06-10-2024 End: 09-09-2024 Hepatitis B virus surface Ag [Presence] in Serum HEPATITIS B SURFACE ANTIGEN Lab Routine 15 weeks gestation of Expected: 06/10/2024, Expires: 09/09/2024 [facility] Comment on above: Expected: 06/10/2024 , Expires: 09/09/2024 Start: 06-10-2024 End: 09-09-2024 Hepatitis C virus Ab [Presence] in Serum [facility] Comment on above: Expected: 06/10/2024 , Expires: 09/09/2024 Start: 06-10-2024 End: 09-09-2024 HIV 1+2 Ab [Presence] in Serum or Plasma by Immunoassay [facility] Comment on above: Expected: 06/10/2024 , Expires: 09/09/2024 Start: 06-10-2024 End: 06-10-2025 OBSTETRIC ULTRASOUND WHI OBSTETRIC ULTRASOUND WHI Anc Imaging Routine 15 weeks gestation of Expected: 06/10/2024, Expires: 06/10/2025 [facility] Comment on above: Expected: 06/10/2024 , Expires: 06/10/2025 Start: 06-10-2024 End: 09-09-2024 RUBELLA IGG ANTIBODY [facility] Comment on above: Expected: 06/10/2024 , Expires: 09/09/2024 Start: 06-10-2024 End: 09-09-2024 SYPHILIS TREPONEMAL W/REFLEX [facility] Comment on above: Expected: 06/10/2024 , Expires: 09/09/2024 Start: 06-10-2024 End: 09-09-2024 TYPE + SCREEN [facility] Comment on above: Expected: 06/10/2024 , Expires: 09/09/2024 Start: 02-04-2024 Covid-19 Vaccine () Covid-19 Vaccine () [facility] Start: 02-04-2024 Influenza vaccination Influenza Vacc ine (#1) [facility] Start: 01-14-2024 Screening for Chlamy karla trachomatis Chlamydia and Gonorrhea Screening [facility] Start: 12-09-2023 Screening for Chlamy karla trachomatis Chlamydia/GC screen [facility] Start: 11-09-2023 Depression Screen Depression Screen [facility] Start: 07-11-2023 End: 07-11-2023 Patient encounter procedure 07/11/2023 9:00 AM EST Routine [address] [address] Alycia Vicente, POWDER CUTTING OPERATOR-CN [address] [place] [address] [facility] Start: 07-04-2023 End: 07-04-2023 Patient encounter procedure 07/04/2023 9:40 AM EST Routine [id number] [place] [address] Alycia Vicente, POWDER CUTTING OPERATOR-CN [address] [place] [address] [facility] Start: 06-13-2023 End: 06-13-2023 Patient encounter procedure 06/13/2023 3:00 PM EST Routine [id number] [facility] [address] Alycia Vicente, POWDER CUTTING OPERATOR-CNM [address] [facility] [place] [address] [facility] Start: 06-09-2023 End: 06-09-2023 Patient encounter procedure 06/09/2023 8:00 AM EST Routine [facility] [address] [facility] [place] [address] Alycia Vicente, POWDER CUTTING OPERATOR-CNM [address] [place] [address] [facility] Start: 03-14-2023 EPVOB, Provider: Alycia Vicente, Status: Pen, Time: 1:40 PM EPVOB, Provider: Alycia Vicente, Status: Pen, Time: 1:40 PM [facility] [id number] M DO Work Phone: Start: 02-14-2023 EPVOB, Provider: Vanna Wilder, Status: Pen, Time: 11:20 AM EPVOB, Provider: Vanna Wilder, Status: Pen, Time: 11:20 AM [facility] [id number] M DO Work Phone: Start: 02-03-2023 Influenza vaccination Influenza Vacc ine (#1) [facility] Start: 01-03-2023 Influenza vaccination Flu vaccine (# 1) [facility] Start: 08-04-2021 Anxiety Screening Anxiety Screening [facility] Start: 08-04-2021 Depression Screening Depression Scre ening [facility] Start: 08-04-2021 GC (Gonorrhea) Scree neelima (18-24) GC (Gonorrhea) Screening (18-24) [facility] Start: 08-04-2021 Hepatitis C screening Hepatitis C sc reen [facility] Start: 08-04-2021 HIV screening HIV Screening [facility] Start: 08-04-2021 Screening for Chlamy karla trachomatis Chlamydia Screening (18-24) [facility] Start: 02-03-2021 Influenza vaccination Flu vacc ine (Season Ended) [employer] Phone: Start: 10-22-2020 End: 10-22-2020 Patient encounter procedure 10/22/2020 Office Visit Obstetrics and Gynecology Hina Winter, POWDER CUTTING OPERATOR - CN [address] [place], [place] [id number] [facility] Obstetrics [facility] Gynecology Start: 2019 Meningococcal (ACWY) vaccine (1 - 2-dose series) Meningococcal (ACWY) vaccine (1 - 2-dose series) [facility] Start: 2019 Meningococcal B Vacc ine (1 of 2 - Standard) Meningococcal B Vaccine (1 of 2 - Standard) [facility] Start: 2019 Meningococcal B Vacc ine: Consider Based On Risk (1 of 2 - Patient Seeks Protection) Meningococcal B Vaccine: Consider Based On Risk (1 of 2 - Patient Seeks Protection) [facility] Start: 2019 Screening for Chlamy karla trachomatis Chlamydia screen [employer] Phone: Start: 08-04-2018 HIV screening HIV screen TRACEY ALBARADO [facility] Start: 08-04-2018 HPV Vaccine (1 - 3-d ose series) HPV Vaccine (1 - 3-dose series) [facility] Start: 08-04-2018 HPV Vaccines (1 - 3- dose series) HPV Vaccines (1 - 3-dose series) [facility] Start: 08-04-2017 Peds To Adult Transi tion Annual Assessment Peds To Adult Transition Annual Assessment [facility] Start: 2015 COVID-19 Vaccine (1) COVID-19 Vaccin e (1) [employer] Phone: Start: 2015 Peds To Adult Transi tion Initial Discussion Peds To Adult Transition Initial Discussion [facility] Start: 08-04-2014 HPV vaccine (1 - 2-d ose series) HPV vaccine (1 - 2-dose series) [facility] [employer] Start: 08-04-2014 HPV Vaccines (1 - 2- dose series) HPV Vaccines (1 - 2-dose series) [facility] Start: 08-04-2010 DTaP/Tdap/Td vaccine (5 - Tdap) DTaP/Tdap/Td vaccine (5 - Tdap) [employer] Phone: Start: 2007 Hearing Screening (#1) Hearing Scree neelima (#1) [facility] Start: 2007 Measles,Mumps,Rubell a (MMR) vaccine (2 of 2 - Standard series) Measles,Mumps,Rubella (MMR) vaccine (2 of 2 - Standard series) [employer] Phone: Start: 2007 Polio vaccine (4 of 4 - 4-dose series) Polio vaccine (4 of 4 - 4-dose series) [employer] Phone: Start: 2007 Varicella vaccine (2 of 2 - 2-dose childhood series) Varicella vaccine (2 of 2 - 2-dose childhood series) [employer] Phone: Start: 08-04-2006 Well Child Visit (WC V) - Annual Well Child Visit (WCV) - Annual [facility] Start: 08-04-2004 Hepatitis A vaccine (1 of 2 - 2-dose series) Hepatitis A vaccine (1 of 2 - 2-dose series) [employer] Phone: Start: 04-06-2004 Application of denta l fluoride varnish Fluoride Varnish [facility] Start: 02-05-2004 COVID-19 Vaccine (#1) COVID-19 Vacci ne (#1) [facility] Start: 2003 Hearing Screening (#1) Hearing Scree neelima (#1) [facility] Start: 2003 Lipid panel Lipid Panel [facility] Start: 2003 Yearly Adult Physical Yearly Adult P hysical [facility] Bacteria identified in Urine by Culture URINE CULTURE Microbiology Routine 15 weeks gestation of 06/10/2024 3:36 PM [facility] Chlamydia trachomatis+Neisseria gonorrhoeae DNA [Presence] in Unspecified specimen by ISAK with probe detection GONORRHEA/CHLAMYDIA NAAT Lab Routine 15 weeks gestation of 06/10/2024 3:36 PM [facility] ECG 12 lead ECG 12 lead ECG STAT 10/06/2024 7:05 PM EDT [facility] Service Area Work Phone: End: 11-12-2024 ECG 12 Lead [facility] Work Phone: Comment on above: Once for 1 Occurrenc es starting 11/12/2024 until 11/12/2024 Electrocardiogram, 12-lead PRN ACS symptoms Electrocardiogram, 12-lead PRN ACS symptoms ECG Routine As needed until discontinued starting 06/07/2023 [facility] Work Phone: Comment on above: As needed until disc ontinued starting 06/07/2023 Electrocardiogram, 12-lead PRN ACS symptoms Electrocardiogram, 12-lead PRN ACS symptoms ECG Routine As needed until discontinued starting 06/15/2023 [facility] Work Phone: Comment on above: As needed until disc ontinued starting 06/15/2023 Gas panel - Arterial cord blood Blood Gas Cord Arterial Lab Routine As needed (Lab) until discontinued starting 06/18/2023 [facility] Work Phone: Comment on above: As needed (Lab) unti l discontinued starting 06/18/2023 Gas panel - Venous c ord blood Blood Gas Cord Venous Lab Routine As needed (Lab) until discontinued starting 06/18/2023 [facility] Work Phone: Comment on above: As needed (Lab) unti l discontinued starting 06/18/2023 Iiv3 vaccine split v irus 0.5 ml dosage im use INFLUENZA VACCINE, AGE 6MO-[id number], TRIVALENT (AFLURIA, FLULAVAL, FLUVIRIN, FLUZONE) Immunization/Injection Routine Need for influenza vaccination Ordered: 08/12/2024 [facility] Comment on above: Ordered: 08/12/2024 End: 10-17-2020 Insert/Change Meredith Catheter Insert/Change Meredith Catheter Procedure STAT One Time for 1 Occurrences starting 10/17/2020 until 10/17/2020 [facility] Work Phone: Comment on above: One Time for 1 Occur rences starting 10/17/2020 until 10/17/2020 End: 06-07-2023 Nonstress test nonstress test (>= 23 weeks) Procedures Routine Once for 1 Occurrences starting 06/07/2023 until 06/07/2023 [facility] Service Area Work Phone: Comment on above: Once for 1 Occurrenc es starting 06/07/2023 until 06/07/2023 End: 06-14-2023 Prepare RBC: 1 Units Prepare RBC: 1 Units Blood Bank Routine Once for 1 Occurrences starting 06/14/2023 until 06/14/2023 [facility] Work Phone: Comment on above: Once for 1 Occurrenc es starting 06/14/2023 until 06/14/2023 End: 11-12-2024 Pulse oximetry, continuous Pulse oximetry, continuous Respiratory Care STAT Continuous until discontinued starting 11/12/2024 [facility] Work Phone: Comment on above: Continuous until dis continued starting 11/12/2024 ROUTINE, GR OUP B STREPTOCOCCUS BY PCR ROUTINE, GROUP B STREPTOCOCCUS BY PCR Microbiology Routine 36 weeks gestation of ([facility]) Supervision of high risk in third trimester ([facility]) 11/04/2024 3:23 PM EDT [facility] Work Phone: End: 06-15-2023 Surgical pathology study [facility] Work Phone: Comment on above: Once (Lab) for 1 Occ urrences starting 06/15/2023 until 06/15/2023, 1 completed End: 10-19-2020 Type and screen Type and screen Blood Bank Routine Threatened miscarriage in early 1 Occurrences starting 10/19/2020 until 10/19/2020 [facility] Work Phone: Comment on above: 1 Occurrences starti ng 10/19/2020 until 10/19/2020 URINE OB DIP B/O URINE OB DIP B/ O Lab Routine 30 weeks gestation of ([facility]) Late care ([facility]) Supervision of high risk in third trimester ([facility]) Ordered: 09/23/2024 [facility] Work Phone: Comment on above: Ordered: 09/23/2024 End: 10-17-2020 US OB LESS THAN 14 WEEKS SINGLE OR FIRST GESTATION US OB LESS THAN 14 WEEKS SINGLE OR FIRST GESTATION Imaging STAT Once for 1 Occurrences starting 10/17/2020 until 10/17/2020 [employer] Work Phone: Comment on above: Once for 1 Occurrenc es starting 10/17/2020 until 10/17/2020 US OB LESS THAN 14 W EEKS SINGLE OR FIRST GESTATION US OB LESS THAN 14 WEEKS SINGLE OR FIRST GESTATION Imaging STAT 10/17/2020 11:41 PM EDT [employer] Work Phone: End: 10-17-2020 US OB TRANSVAGINAL US OB TRANSVAGINAL Imaging STAT Once for 1 Occurrences starting 10/17/2020 until 10/17/2020 [employer] Work Phone: Comment on above: Once for 1 Occurrenc es starting 10/17/2020 until 10/17/2020 US OB TRANSVAGINAL US OB TRANSVA GINAL Imaging STAT 10/17/2020 11:41 PM EDT [employer] Work Phone: Immunizations Immunization Date Immunization Notes Care Provider [facility] 09-09-2024 tetanus toxoid, redu justin diphtheria toxoid, and acellular pertussis vaccine, adsorbed Jennifer De La Torre MD Work Phone: [facility] 06-15-2023 measles, mumps and rubella virus vaccine Buck Kahn MD Work Phone: [facility] Work Phone: 04-19-2023 tetanus toxoid, redu justin diphtheria toxoid, and acellular pertussis vaccine, adsorbed Bryan Us MD Work Phone: [facility] Work Phone: 08-22-2016 meningococcal polysaccharide (groups A, C, Y and W-135) diphtheria toxoid conjugate vaccine (MCV4P); Translations: [Meningo (Menactra)] [facility] Comment on above: Series: 01-25-2016 tetanus toxoid, redu justin diphtheria toxoid, and acellular pertussis vaccine, adsorbed; Translations: [Tdap (Adacel)] [facility] Comment on above: Series: 11-17-2010 hepatitis A vaccine, pediatric/adolescent dosage, 2 dose schedule [facility] 1 [facility] 01-14-2009 diphtheria, tetanus toxoids and acellular pertussis vaccine, unspecified formulation [facility] 1 [facility] 01-14-2009 hepatitis A vaccine, unspecified formulation [facility] 1 [facility] 01-14-2009 measles, mumps and rubella virus vaccine [facility] 01-14-2009 poliovirus vaccine, inactivated Jose Lemasters DO Work Phone: [facility] Work Phone: 01-14-2009 poliovirus vaccine, unspecified formulation [facility] 1 [facility] 01-14-2009 varicella virus vaccine [facility] 1 [facility] Work Phone: 11-04-2004 diphtheria, tetanus toxoids and acellular pertussis vaccine Alexandre Casillas MD Work Phone: [facility] Work Phone: 11-04-2004 diphtheria, tetanus toxoids and acellular pertussis vaccine, 5 pertussis antigens [facility] 11-04-2004 haemophilus influenz ae type b vaccine, HbOC conjugate Priscilla Murphy APRN.CNP Work Phone: [facility] 11-04-2004 haemophilus influenz ae type b vaccine, PRP-T conjugate [facility] 11-04-2004 Hib, unspecified Alexandre pinto MD Work Phone: [facility] Work Phone: 11-04-2004 pneumococcal conjuga te vaccine, 7 valent Alexandre Casillas MD Work Phone: [facility] Work Phone: 08-03-2004 measles, mumps and rubella virus vaccine Alexandre Casillas MD Work Phone: [facility] Work Phone: 08-03-2004 varicella virus vaccine Ruddy Casillas MD Work Phone: [facility] Work Phone: 02-17-2004 diphtheria, tetanus toxoids and acellular pertussis vaccine Alexandre Casillas MD Work Phone: [facility] Work Phone: 02-17-2004 diphtheria, tetanus toxoids and acellular pertussis vaccine, unspecified formulation [facility] 1 [facility] 02-17-2004 haemophilus influenz ae type b vaccine, conjugate unspecified formulation [facility] 02-17-2004 haemophilus influenz ae type b vaccine, HbOC conjugate Priscilla Murphy APRN.[facility] Work Phone: [facility] 02-17-2004 hepatitis B vaccine, adult dosage [facility] 02-17-2004 hepatitis B vaccine, pediatric or pediatric/adolescent dosage [facility] 02-17-2004 hepatitis B vaccine, unspecified formulation Alexandre Casillas MD Work Phone: [facility] Work Phone: 02-17-2004 Hib, unspecified Alexandre pinto MD Work Phone: [facility] Work Phone: 02-17-2004 pneumococcal conjuga te vaccine, 7 valent Alexandre Casillas MD Work Phone: [facility] Work Phone: 02-17-2004 poliovirus vaccine, inactivated Alexandre Casillas MD Work Phone: [facility] Work Phone: 02-17-2004 poliovirus vaccine, unspecified formulation [facility] 1 [facility] 2003 diphtheria, tetanus toxoids and acellular pertussis vaccine Alexandre Casillas MD Work Phone: [facility] Work Phone: 2003 diphtheria, tetanus toxoids and acellular pertussis vaccine, unspecified formulation [facility] [place] 2003 haemophilus influenz ae type b vaccine, conjugate unspecified formulation [facility] 2003 haemophilus influenz ae type b vaccine, HbOC conjugate Priscilla Jeffrey POWDER CUTTING OPERATOR.YARD WAREHOUSE WORKER Work Phone: [facility] 2003 Hib, unspecified Alexandre pinto MD Work Phone: [facility] Work Phone: 2003 pneumococcal conjuga te vaccine, 7 valent Alexandre Casillas MD Work Phone: [facility] Work Phone: 2003 poliovirus vaccine, inactivated Alexandre Casillas MD Work Phone: [facility] Work Phone: 2003 poliovirus vaccine, unspecified formulation [facility] 1 [facility] [place] 2003 diphtheria, tetanus toxoids and acellular pertussis vaccine Alexandre Casillas MD Work Phone: [facility] Work Phone: 2003 diphtheria, tetanus toxoids and acellular pertussis vaccine, unspecified formulation [facility] 1 [facility] [place] 2003 haemophilus influenz ae type b vaccine, conjugate unspecified formulation [facility] 1 [facility] 2003 haemophilus influenz ae type b vaccine, HbOC conjugate Priscilla [place] POWDER CUTTING OPERATOR.YARD WAREHOUSE WORKER Work Phone: [facility] 2003 hepatitis B vaccine, adult dosage [facility] 2003 hepatitis B vaccine, pediatric or pediatric/adolescent dosage [facility] 2003 hepatitis B vaccine, unspecified formulation Alexandre Casillas MD Work Phone: [facility] Work Phone: 2003 Hib, unspecified Alexandre pinto MD Work Phone: [facility] [employer] Work Phone: 2003 pneumococcal conjuga te vaccine, 7 valent Alexandre Casillas MD Work Phone: [facility] [employer] Work Phone: 2003 poliovirus vaccine, inactivated Alexandre Casillas MD Work Phone: [facility] Work Phone: 2003 poliovirus vaccine, unspecified formulation [facility] 1 [facility] 2003 hepatitis B vaccine, adult dosage [facility] 1 [facility] 2003 hepatitis B vaccine, pediatric or pediatric/adolescent dosage [facility] 1 [employer] [facility] 2003 hepatitis B vaccine, unspecified formulation Alexandre Casillas MD Work Phone: [facility] [employer] Work Phone: diphtheria, tetanus toxoids and acellular pertussis vaccine No PCP None [facility] [id number] M DO Work Phone: Comment on above: 03 Series: 03 Series: 02/17/04 Series: 11/04/04 Series: 01/14/09 Series: haemophilus influenz ae type b vaccine, PRP-OMP conjugate No PCP None [facility] [id number] M DO Work Phone: Comment on above: 03 Series: 03 Series: 02/17/04 Series: 11/04/04 Series: hepatitis A vaccine, pediatric/adolescent dosage, 2 dose schedule No PCP None [facility] [id number] M DO Work Phone: Comment on above: 01/14/09 Series: 11/17/10 Series: hepatitis B vaccine, pediatric or pediatric/adolescent dosage No PCP None [facility] [id number] M DO Work Phone: Comment on above: 03 Series: 03 Series: 02/17/04 Series: measles, mumps and rubella virus vaccine No PCP None [facility] [id number] M DO Work Phone: Comment on above: 08/03/04 Series: 01/14/09 Series: pneumococcal conjuga te vaccine, 7 valent No PCP None [facility] [id number] M DO Work Phone: Comment on above: 03 Series: 03 Series: 02/17/04 Series: 11/04/04 Series: poliovirus vaccine, inactivated No PCP None [facility] [id number] M DO Work Phone: Comment on above: 03 Series: 03 Series: 02/17/04 Series: 01/14/09 Series: varicella virus vaccine No PCP None [facility] [id number] M DO Work Phone: Comment on above: 08/03/04 Series: 01/14/09 Series: NEGATED: Highlighted row has not occurred!08-12-2024 influenza, seasonal, injectable Tyrell Spencer MD Work Phone: [facility] Comment on above: Deferred: Patient Re fused Payers Date Payer Category Payer Self-pay 2023 Medicaid [id number] 2022 Medicaid [id number] 2022 Managed Care (Private) [facility] [id number] 2022 Private Health Insurance [id number] 2018 Private Health Insurance [id number] 2003 Unknown [id number] 2.16.840.1.431203.3.579.2. 185 2003 Unknown [id number] 2.16.840.1.788425.3.579.2. 185 2003 Unknown [id number] 2.16.840.1.811387.3.579.2. 1243 2003 Unknown [id number] 2.16.840.1.330748.3.579.2. 1243 2003 Unknown [id number] 2.16.840.1.291176.3.579.2. 1243 2003 Unknown [id number] 2.16.840.1.257020.3.579.2. 4 2003 Unknown [id number] 2.16.840.1.146407.3.579.2. 1243 2003 Unknown [id number] 2.16.840.1.292407.3.579.2. 1243 2003 Unknown [id number] 2.16.840.1.848465.3.579.2. 1243 2003 Unknown [id number] 2.16.840.1.701833.3.579.2. 1244 2003 Unknown [id number] 2.16.840.1.539930.3.579.2. 1244 2003 Unknown [id number] 2.16.840.1.613570.3.579.2. 1245 2003 Unknown [id number] 2.16.840.1.972737.3.579.2. 1243 2003 Unknown [id number] 2.16.840.1.135514.3.579.2. 1243 2003 Unknown [id number] 2.16.840.1.236569.3.579.2. 1243 1974 Unknown [id number] 2.16.840.1.089059.3.579.2. 182 1974 Unknown [id number] 2.16.840.1.478804.3.579.2. 182 Unknown Unknown [id number] 2.16.840.1.943600.3.579.2. 462 Unknown [id number] 2.16.840.1.091243.3.579.2. 462 Unknown [id number] 2.16.840.1.673647.3.579.2. 462 Social History Date Type Detail Facility Start: 10-17-2020 End: 06-07-2024 Tobacco smoking status [facility] Never smoker [facility] [employer] Start: 10-17-2020 End: 06-07-2024 Tobacco use and exposure Never used [employer] Start: 10-17-2020 End: 11-12-2024 Alcohol intake Lifetime non-drinker (finding) [facility]: Start: 05-07-2019 End: 11-08-2022 History SDOH Alcohol Frequency 1 [facility]: Start: 09-30-2020 End: 11-08-2022 History SDOH Financial 5 [facility]: Start: 09-30-2020 End: 11-08-2022 History SDOH Transport Med 2 [facility]: Start: 2003 Sex Assigned At Not on file [facility]: Exposure to SARS-CoV -2 (event) Yes [employer] Start: 05-28-2023 End: 11-12-2024 Exposure to SARS-CoV-2 (event) Not sure [employer] Start: 10-20-2022 [facility] CHILDRESS [facility] Start: 06-07-2023 End: 06-10-2024 Lives with parents Lives with parents [facility] Start: 06-07-2023 End: 06-10-2024 Alcohol Use Disorder Identification Test - Consumption [AUDIT-C] [facility] How often to you hav e a drink containing alcohol? Never [facility] How many standard dr inks containing alcohol do you have on a typical day? Patient does not drink [facility] Work Phone: History of tobacco use Passive smoker [facility] Start: 06-10-2024 End: 11-14-2024 Alcoholic beverage intake Current non-drinker of alcohol (finding) [facility] Start: 06-07-2024 Education 21 [facility] Start: 2003 Sex assigned at Female [facility] Start: 06-07-2024 Gender identity Identifies as female gender (finding) [facility] Start: 06-07-2024 Sexual orientation Heterosexual (finding) [facility] Goals Date Patient Goal Desired Activity /State Personal health goal Functional Status Date Assessment Result Facility 11-12-2024 [place] - suicide s everity rating scale screener - recent [C-SSRS] [facility] Work Phone: 10-06-2024 [place] - suicide s everity rating scale screener - recent [C-SSRS] [facility] Work Phone: Clinical Notes 06-07-2023 to 11-18-2024 Betzy Gunter - 11/18/2024 8:46 AM EDTPrenatal Quick Notes - Jennifer De La Torre MD - 11/14/2024 11:50 AM EDTPrenatal Quick Notes - Jennifer De La Torre MD - 11/14/2024 11:50 AM EDTPatient Instructions Note Date & Type Note Facility 11-18-2024 History of Present illness Narrative POPULATION HEALTH NAVIGATION OUTREACH Action/FYI Left message to add chiller technician to OB provider field, My chart sent Reason for Outreach Medicaid OB/Peds Care Gaps due: N/A Patient Contacted: Unable or unnecessary to reach patient: Unable to reach patient Left message MyChart message sent Navigation Signature: Betzy Gunter, Population Health Navigator November 18, 2024 8:47 AM documented in this encounter [facility] 11-14-2024 Progress note Formatting of [...] 1 wk Jennifer De La Torre DO [facility] 11-14-2024 Miscellaneous Notes SW- RUQ [...] La Torre DO documented in this encounter [facility] 11-14-2024 Instructions Vanna Birmingham MA - 11/14/2024 11:21 AM EDT SEQUENTIAL SCREENINGS The [facility] offers sequential screenings for women [...] It will require an appointment with our electrocardiograph technician. This is not an ultrasound performed [...] the above symptoms, contact our office at [phone] and ask to speak with a nurse. After hours, you can call doctors registry at [phone] OR call [facility] at [phone] and ask to have the doctor clinical documentation consultant paged. If you consider this an emergency, dial 0-1-8 or go to your nearest emergency department. NEED HELP? Are you dealing with a violent or abusive relationship? Are you a victim of rape or sexual assult? Call [facility] ([facility] 24 hour Crisis Hotline: 797.930.1354 or 128-659-8779. MANUAL Your Guide to a Healthy manual is now on-line. Visit [email or web address] to download your free copy documented in this encounter [facility] 11-08-2024 Telephone encounter Note Patient called back in and was notified. States she has tried heating pad and tylenol. Tylenol doesn't help as much, but the heating pad does. She will try with stretching over the weekend follow up next week at her scheduled appointment. She will call if needed for sooner visit. Janet Coe RN [facility] 11-08-2024 Miscellaneous Notes Patient called [...] to leave message because mailbox is full. [employer] message sent. Janet Coe RN Agree that [...] Janet Coe RN documented in this encounter [facility] 11-08-2024 Telephone encounter Note Attempted to call patient. Unable to leave message because mailbox is full. Mychart message sent. Janet Coe RN [facility] 11-08-2024 Telephone encounter Note Agree that this could be positioning or musculoskeletal. Try heating pad to area- taking Tylenol 1000 mg by mouth for pain and try YOGA/ STRETCHING. Anayeli Murry APRN.CNM [facility] Work Phone: 11-08-2024 Telephone encounter [...] thinks lately. Please advise. Janet Coe RN [facility] 11-04-2024 Progress note Formatting of t his note might be different from the original. SW- Pt doing well. No MART, vision changes, pain, vb, lof. Good FM PE: Gen- NAD, well appearing Abd- Soft, gravid, NT See flowsheet A/p 36 wk gestation - GBS today - Vertex on bedside US - RTO 1 wk Jennifer De La Torre DO [facility] 11-04-2024 Miscellaneous Notes SW- Pt doing well. No MART, vision changes, pain, vb, lof. Good FM PE: Gen- NAD, well appearing Abd- Soft, gravid, NT See flowsheet A/p 36 wk gestation - GBS today - Vertex on bedside US - RTO 1 wk Jennifer De La Torre DO documented in this encounter [facility] 11-04-2024 Instructions Vanna Birmingham MA - 11/04/2024 3:01 PM EDT SEQUENTIAL SCREENINGS The [facility] offers sequential screenings for women [...] It will require an appointment with our electrocardiograph technician. This is not an ultrasound performed [...] the above symptoms, contact our office at [phone] and ask to speak with a nurse. After hours, you can call doctors registry at [phone] OR call [facility] at [phone] and ask to have the doctor clinical documentation consultant paged. If you consider this an emergency, dial 9--1 or go to your nearest emergency department. NEED HELP? Are you dealing with a violent or abusive relationship? Are you a victim of rape or sexual assult? Call [facility] ([place]) 24 hour Crisis Hotline: 379.558.4966 or 298-809-0584. MANUAL Your Guide to a Healthy manual is now on-line. Visit [email or web address] to download your free copy documented in this encounter [facility] 10-21-2024 Progress note Formatting of [...] 2 wks Jennifer De La Torre DO [facility] 10-21-2024 Miscellaneous Notes SW- No [...] La Torre DO documented in this encounter [facility] 10-21-2024 Instructions Vanna Birmingham MA - 10/21/2024 3:26 PM EDT SEQUENTIAL SCREENINGS The [facility] offers sequential screenings for women [...] It will require an appointment with our electrocardiograph technician. This is not an ultrasound performed [...] the above symptoms, contact our office at [phone] and ask to speak with a nurse. After hours, you can call doctors registry at [phone] OR call [facility] at [phone] and ask to have the doctor clinical documentation consultant paged. If you consider this an emergency, dial 9-1-6 or go to your nearest emergency department. NEED HELP? Are you dealing with a violent or abusive relationship? Are you a victim of rape or sexual assult? Call [facility] ([place]) 24 hour Crisis Hotline: 234.664.9322 or 326-421-5797. MANUAL Your Guide to a Healthy manual is now on-line. Visit [email or web address] to download your free copy documented in this encounter [facility] 10-15-2024 Telephone encounter Note Again no further US. Can discuss at next visit. Naren Bullard MD [facility] 10-15-2024 Miscellaneous Notes Again no further US. Can discuss at next visit. Naren Bullard MD Correct. No additional US needed. Naren Bullard MD She doesn't need another formal u/s at this point, right? Janet Coe RN documented in this encounter [facility] 10-10-2024 Telephone encounter Note Correct. No additional US needed. Naren Bullard MD [facility] 10-10-2024 Telephone encounter Note She doesn't need another formal u/s at this point, right? Janet Coe RN [facility] 10-10-2024 Progress note Formatting of [...] PTL & FM precautions Naren Bullard MD [facility] 10-10-2024 Miscellaneous Notes KJ - [...] Naren Bullard MD documented in this encounter [facility] 10-10-2024 Instructions Arina Sanchez MA - 10/10/2024 10:50 AM EDT SEQUENTIAL SCREENINGS The [facility] offers sequential screenings for women [...] It will require an appointment with our electrocardiograph technician. This is not an ultrasound performed [...] the above symptoms, contact our office at [phone] and ask to speak with a nurse. After hours, you can call doctors registry at [phone] OR call [facility] at [phone] and ask to have the doctor clinical documentation consultant paged. If you consider this an emergency, dial 9-1-7 or go to your nearest emergency department. NEED HELP? Are you dealing with a violent or abusive relationship? Are you a victim of rape or sexual assult? Call [facility] ([place]) 24 hour Crisis Hotline: 625.714.8499 or 870-565-6146. MANUAL Your Guide to a Healthy manual is now on-line. Visit [email or web address] to download your free copy documented in this encounter [facility] 10-07-2024 Telephone encounter Note Thank you, would recommend keeping appointment this week and please make an appointment note to see this phone encounter thanks [facility] Work Phone: 10-07-2024 Miscellaneous Notes Thank you, would recommend keeping appointment this week and please make an appointment note to see this phone encounter thanks Pt called in to change appt on 10/10/24 as it did not fit her schedule. Stating she went to [facility] 3 days ago, then to [facility] ER 10/06. States dx Pneumonia and given IV antibiotics. States she is feeling improvement with the shortness of breath and denies at this time. Was prescribed PO Augmentin and plans to lease picker Rx today. Advised to continue to push fluids, continue to monitor movement, and take antibiotics as advised. Rescheduled OB appt from 10/10/24 to 10/14/24 d/t patient availability. However, last OB appt was 09/23/24. Does Pt need seen sooner than 10/14/24? Please advise. Michelle Lemus RN 32w0d Updated Care Everywhere. Patient was seen at [facility]. See notes available in Epic now. Dx: [...] visit thanks ALICE documented in this encounter [facility] 10-07-2024 Telephone encounter Note Pt called in to change appt on 10/10/24 as it did not fit her schedule. Stating she went to [facility] 3 days ago, then to [facility] ER 10/06. States dx Pneumonia and given IV antibiotics. States she is feeling improvement with the shortness of breath and denies at this time. Was prescribed PO Augmentin and plans to lease picker Rx today. Advised to continue to push fluids, continue to monitor movement, and take antibiotics as advised. Rescheduled OB appt from 10/10/24 to 10/14/24 d/t patient availability. However, last OB appt was 09/23/24. Does Pt need seen sooner than 10/14/24? Please advise. Michelle Lemus RN [facility] 10-07-2024 Telephone encounter Note 32w0d Updated Care Everywhere. Patient was seen at [facility] ER. See notes available in Epic now. Dx: Pneumonia of left lower lobe due to infectious organism. Patient has an upcoming OB visit on 10/10. Do we need to move up her appointment or do you have further instructions before we call patient? Sanjuana Caceres RN [facility] 10-07-2024 Telephone encounter Note Please check in on patient this morning and get an update from ER visit thanks SW [facility] 10-06-2024 Physician Emergency department Note [...] discharged. Have instructed her to call her corrosion control fitter in the morning and if she has [...] Arsenio Roy 10/06/2024 5:34 PM Dictation workstation: [id number] Labs Reviewed CBC WITH AUTO DIFFERENTIAL - [...] in ng/mL Fibrinogen Equivalent Units (FEU). Per medical case manager's instructions for use, a value of less [...] performed using a different testing methodology at [facility] than at [facility]. Direct result comparisons should only be [...] and has been validated for use at [facility]. Negative results do not preclude COVID-19 [...] and has been validated for use at [facility]. Negative results do not preclude Influenza A/B infections, and should not be used as the sole basis for diagnosis, treatment, or other management decisions. If Influenza A/B and RSV PCR results are negative, testing for Parainfluenza virus, Adenovirus and Metapneumovirus is routinely performed for [facility] pediatric oncology and intensive care inpatients, and is available on other patients by placing an add-on request. TSH WITH REFLEX TO FREE T4 IF ABNORMAL - Normal Thyroid Stimulating Hormone 2.25 Narrative: TSH testing is performed using different testing methodology at [facility] than at other [facility]. Direct result comparisons should only be made within the same method. Medical Decision Making 1 medication as prescribed 2 Tylenol for fever or pain 3 follow-up with corrosion control fitter tomorrow if symptoms worsen return to ED. Final diagnoses: [J18.9] Pneumonia of left lower lobe due to infectious organism Procedure Procedures DO John Dorsey DO 10/06/241931 [facility] Work Phone: 10-06-2024 Emergency department Note Emergency [...] discharged. Have instructed her to call her corrosion control fitter in the morning and if she has [...] Arsenio Roy 10/06/2024 5:34 PM Dictation workstation: [id number] Labs Reviewed CBC WITH AUTO DIFFERENTIAL - [...] in ng/mL Fibrinogen Equivalent Units (FEU). Per medical case manager's instructions for use, a value of less [...] performed using a different testing methodology at [facility] than at [facility]. Direct result comparisons should only be [...] and has been validated for use at [facility]. Negative results do not preclude COVID-19 [...] and has been validated for use at [facility]. Negative results do not preclude Influenza A/B infections, and should not be used as the sole basis for diagnosis, treatment, or other management decisions. If Influenza A/B and RSV PCR results are negative, testing for Parainfluenza virus, Adenovirus and Metapneumovirus is routinely performed for [facility] pediatric oncology and intensive care inpatients, and is available on other patients by placing an add-on request. TSH WITH REFLEX TO FREE T4 IF ABNORMAL - Normal Thyroid Stimulating Hormone 2.25 Narrative: TSH testing is performed using different testing methodology at [facility] than at [facility]. Direct result comparisons should only be made within the same method. Medical Decision Making 1 medication as prescribed 2 Tylenol for fever or pain 3 follow-up with corrosion control fitter tomorrow if symptoms worsen return to ED. [...] in ng/mL Fibrinogen Equivalent Units (FEU). Per medical case manager's instructions for use, a value of less [...] performed using a different testing methodology at [facility] than at [facility]. Direct result comparisons should only be made within the same method. SARS-COV-2 PCR - Normal Coronavirus 2019, PCR Narrative: This assay is an FDA-cleared, in vitro diagnostic nucleic acid amplification test for the qualitative detection and differentiation of SARS CoV-2 from nasopharyngeal specimens collected from individuals with signs and symptoms of respiratory tract infections, and has been validated for use at [facility]. Negative results do not preclude COVID-19 [...] and has been validated for use at [facility]. Negative results do not preclude Influenza A/B infections, and should not be used as the sole basis for diagnosis, treatment, or other management decisions. If Influenza A/B and RSV PCR results are negative, testing for Parainfluenza virus, Adenovirus and Metapneumovirus is routinely performed for [facility] pediatric oncology and intensive care inpatients, and is available on other patients by placing an add-on request. TSH WITH REFLEX TO FREE T4 IF ABNORMAL - Normal XR chest 1 view Final Result Ill-defined opacity at the left lung base favored to represent atelectasis or developing pneumonia. MACRO: None. Signed by: Arsenio Roy 10/06/2024 5:34 PM Dictation workstation: [id number] CT angio chest for pulmonary embolism (Results [...] ED Physician in the absence of a dairy frozen manager: yes Comments: EKG interpreted by Dr. Jose Damon: Sinus tachycardia 102 bpm. MN interval 118 ms. QTc of 435 ms. [...] Damon DO 10/06/241904 documented in this encounter [facility] Work Phone: 10-06-2024 Physician Emergency department Note [...] in ng/mL Fibrinogen Equivalent Units (FEU). Per medical case manager's instructions for use, a value of less [...] performed using a different testing methodology at [facility] than at [facility]. Direct result comparisons should only be made within the same method. SARS-COV-2 PCR - Normal Coronavirus 2019, PCR Narrative: This assay is an FDA-cleared, in vitro diagnostic nucleic acid amplification test for the qualitative detection and differentiation of SARS CoV-2 from nasopharyngeal specimens collected from individuals with signs and symptoms of respiratory tract infections, and has been validated for use at [facility]. Negative results do not preclude COVID-19 [...] and has been validated for use at [facility]. Negative results do not preclude Influenza A/B infections, and should not be used as the sole basis for diagnosis, treatment, or other management decisions. If Influenza A/B and RSV PCR results are negative, testing for Parainfluenza virus, Adenovirus and Metapneumovirus is routinely performed for [facility] pediatric oncology and intensive care inpatients, and is available on other patients by placing an add-on request. TSH WITH REFLEX TO FREE T4 IF ABNORMAL - Normal XR chest 1 view Final Result Ill-defined opacity at the left lung base favored to represent atelectasis or developing pneumonia. MACRO: None. Signed by: Arsenio Roy 10/06/2024 5:34 PM Dictation workstation: [id number] CT angio chest for pulmonary embolism (Results [...] ED Physician in the absence of a dairy frozen manager: yes Comments: EKG interpreted by Dr. Jose Damon: Sinus tachycardia 102 bpm. MN interval 118 ms. QTc of 435 ms. [...] use: Never Jose Damon DO 10/06/24 190 [facility] Work Phone: 10-06-2024 Telephone encounter Note Patient called back to determine which emergency room she should head to. Advised nearest emergency room. She will head to [facility]. [facility] 10-06-2024 Miscellaneous Notes Patient called back to determine which emergency room she should head to. Advised nearest emergency room. She will head to [facility]. Reason for Call: difficulty breathing, back pain Outcome: Based on symptoms and assessment findings at this time, Patient advised to go the Emergency Room now (patient reports she is planning to deliver at [place].. Patient plans to go to Hospital at this time. Encouraged to rod puller and coiler and call 911 if anything worsens or [...] pre-eclampsia in previous ; Protocols used: Breathing [id number] documented in this encounter [facility] 10-06-2024 Telephone encounter Note Reason for Call: difficulty breathing, back pain Outcome: Based on symptoms and assessment findings at this time, Patient advised to go the Emergency Room now (patient reports she is planning to deliver at [place].. Patient plans to go to Hospital at this time. Encouraged to rod puller and coiler and call 911 if anything worsens or [...] pre-eclampsia in previous ; Protocols used: Breathing [id number] [facility] 09-23-2024 Progress note Formatting of [...] 2 weeks or prn Tyrell Spencer M.D. [facility] 09-23-2024 Miscellaneous Notes RR- VB [...] Tyrell Spencer M.D. documented in this encounter [facility] 09-23-2024 Instructions Arina Sanchez MA - 09/23/2024 3:29 PM EDT SEQUENTIAL SCREENINGS The [facility] offers sequential screenings for women [...] It will require an appointment with our electrocardiograph technician. This is not an ultrasound performed [...] the above symptoms, contact our office at [phone] and ask to speak with a nurse. After hours, you can call doctors registry at [phone] OR call [facility] at [phone] and ask to have the doctor clinical documentation consultant paged. If you consider this an emergency, dial 9-1-9 or go to your nearest emergency department. NEED HELP? Are you dealing with a violent or abusive relationship? Are you a victim of rape or sexual assult? Call [facility] ([place]) 24 hour Crisis Hotline: 423.170.8287 or 503-193-0923. MANUAL Your Guide to a Healthy manual is now on-line. Visit [email or web address] to download your free copy documented in this encounter [facility] 09-09-2024 Progress note Formatting of [...] 2 wk Jennifer De La Torre DO [facility] 09-09-2024 Miscellaneous Notes SW- Pt doing well. No pain, vb, lof. Good FM PE: Gen- NAD, well appearing Abd- Soft, gravid, NT See flowsheet A/p 28 wk gestation - LARC signed - Tdap today - plan sheet given - 28 wk labs - Rto 2 wk Jennifer De La Torre DO documented in this encounter [facility] 09-09-2024 Note HNO ID: [id number] Author: VANNA BIRMINGHAM MA Service: ? Author Type: Manager Of Compensation Type: Progress Notes Filed: 09/09/2024 16:20 Note [...] severely ill: Yes Patient denies history of Guillain-[place] Syndrome (a severe paralytic illness): Yes Tdap Adacel injection was given without incident. See immunizations for details of immunizations administered today. VIS sheet provided: Yes Provider Jennifer De La Torre DO was present in office at time of injection. Vanna Birmingham MA [facility] 09-09-2024 History of Present illness [...] severely ill: Yes Patient denies history of Guillain-[place] Syndrome (a severe paralytic illness): Yes Tdap Adacel injection was given without incident. See immunizations for details of immunizations administered today. VIS sheet provided: Yes Provider Jennifer De La Torre DO was present in office at time of injection. Vanna Birmingham MA documented in this encounter [facility] 09-09-2024 Instructions Vanna Birmingham MA - 09/09/2024 2:30 PM EDT SEQUENTIAL SCREENINGS The [facility] offers sequential screenings for women [...] It will require an appointment with our electrocardiograph technician. This is not an ultrasound performed [...] the above symptoms, contact our office at [phone] and ask to speak with a nurse. After hours, you can call doctors registry at [phone] OR call [facility] at [phone] and ask to have the doctor clinical documentation consultant paged. If you consider this an emergency, dial 9-1-1 or go to your nearest emergency department. NEED HELP? Are you dealing with a violent or abusive relationship? Are you a victim of rape or sexual assult? Call [facility] ([place]) 24 hour Crisis Hotline: 294.483.3733 or 021-696-8900. MANUAL Your Guide to a Healthy manual is now on-line. Visit [email or web address] to download your free copy documented in this encounter [facility] 09-06-2024 Telephone encounter Note Agree with plan of care. Anayeli Murry APRN.CNM [facility] Work Phone: 09-06-2024 Miscellaneous Notes [...] Sanjuana Caceres RN documented in this encounter [facility] 09-06-2024 Telephone encounter Note [id number] [...] visit. Patient voiced agreement. Sanjuana Caceres RN [facility] 08-12-2024 Progress note Formatting of [...] doesn't want today, declines levon Spencer M.D. [facility] 08-12-2024 Miscellaneous Notes RR- VB [...] levon Spencer M.D. documented in this encounter [facility] 08-12-2024 Instructions Arina Sanchez MA - 08/12/2024 3:05 PM EDT SEQUENTIAL SCREENINGS The [facility] offers sequential screenings for women [...] It will require an appointment with our electrocardiograph technician. This is not an ultrasound performed [...] the above symptoms, contact our office at [phone] and ask to speak with a nurse. After hours, you can call doctors registry at [phone] OR call [facility] at [phone] and ask to have the doctor clinical documentation consultant paged. If you consider this an emergency, dial 1-4-3 or go to your nearest emergency department. NEED HELP? Are you dealing with a violent or abusive relationship? Are you a victim of rape or sexual assult? Call [facility] ([place]) 24 hour Crisis Hotline: 519.902.2465 or 511-928-7899. MANUAL Your Guide to a Healthy manual is now on-line. Visit [email or web address] to download your free copy documented in this encounter [facility] 07-18-2024 Note HNO ID: [id number] Author: MARGO BULLARD APRN.YARD WAREHOUSE WORKER Service: ? Author Type: Nurse Practitioner Type: [...] was agreeable and will take her now. [facility] 07-18-2024 History of Present illness [...] take her now. documented in this encounter [facility] 07-16-2024 Progress note Formatting of [...] - needs 36wk testing Naren Bullard MD [facility] 07-16-2024 Miscellaneous Notes KJ - [...] Naren Bullard MD documented in this encounter [facility] 07-16-2024 Instructions Arina Sanchez MA - 07/16/2024 2:16 PM EST SEQUENTIAL SCREENINGS The [facility] offers sequential screenings for women [...] It will require an appointment with our electrocardiograph technician. This is not an ultrasound performed [...] the above symptoms, contact our office at [phone] and ask to speak with a nurse. After hours, you can call doctors registry at [phone] OR call [facility] at [phone] and ask to have the doctor clinical documentation consultant paged. If you consider this an emergency, dial 9-1-4 or go to your nearest emergency department. NEED HELP? Are you dealing with a violent or abusive relationship? Are you a victim of rape or sexual assult? Call [facility] ([place]) 24 hour Crisis Hotline: 641.707.8682 or 523-386-1931. MANUAL Your Guide to a Healthy manual is now on-line. Visit [email or web address] to download your free copy documented in this encounter [facility] 06-10-2024 Instructions Clara Cantrell LPN - 06/10/2024 2:42 PM EST Please select the following link to access the [facility] Your Guide to a Healthy . [email or web address] documented in this encounter [facility] 06-07-2024 Note HNO ID: [id number] Author: PRISCILLA MURPHY APRN.YARD WAREHOUSE WORKER Service: ? Author Type: Nurse Practitioner Type: Progress Notes Filed: 06/10/2024 16:09 Note Text: INITIAL OB ASSESSMENT Patient declined brimming machine operator. HPI: Maryana is a 18 year old [...] Status:Co-habitating Partner: Name: Fercho Age: 19 Occupation: WIDIP Gender: Male PAST MEDICAL HISTORY Diagnosis Date Contact dermatitis and other eczema due to other specified agent eczema Hx of pre-eclampsia in prior , currently 06/2023 third trimester 06/2023 Positive Chlamydia PCR 12/2022 PAST SURGICAL HISTORY Procedure Laterality Date ADENOIDECTOMY HX 2016 MYRINGOTOMY W TUBE,BILATERAL(2) 2016 Current Outpatient Medications Medication Sig Dispense Refill PNV no.[id number] ( GUMMIES) 400 mcg-35 mg- 25 mg-5 [...] The sensitive examin (more content not included)... [facility] 06-07-2024 History of Present illness Narrative INITIAL OB ASSESSMENT Patient declined brimming machine operator. HPI: Maryana is a 18 year old [...] Status:Co-habitating Partner: Name: Fercho Age: 21 Occupation: WIDIP Gender: Male PAST MEDICAL HISTORY Diagnosis Date Contact dermatitis and other eczema due to other specified agent eczema Hx of pre-eclampsia in prior , currently 06/2023 third trimester 06/2023 Positive Chlamydia PCR 12/2022 PAST SURGICAL HISTORY Procedure Laterality Date ADENOIDECTOMY HX 2016 MYRINGOTOMY W TUBE,BILATERAL(2) 2016 Current Outpatient Medications Medication Sig Dispense Refill PN no.[id number] ( GUMMIES) 400 mcg-35 mg- 25 mg-5 [...] discussed with the Patient or Patient's Authorized Bung Driver. As applicable, any other physician, advance practice provider, medical student, or other health professional student that will be observing or involved in the sensitive examination for educational or training purposes was discussed with the Patient or Authorized Bung Driver. The Patient or Authorized Bung Driver has agreed to proceed with the sensitive [...] Your guide to a health and the Court Officer. Reviewed midwifery and mender knit goods services that are available. 2) Screening: Hemoglobin [...] Priscilla Murphy APRN.KELSEY documented in this encounter [facility] 06-19-2023 Plan of care note VSS, fundus firm, bleeding scant, pain well controlled. Cleared for discharge. Zero signs acute distress [facility] 06-19-2023 Miscellaneous Notes VSS, fundus firm, bleeding scant, pain well controlled. Cleared for discharge. Zero signs acute distress This note was copied from a baby's chart. Forging Press Operator Note Consultation Reason for Consult: Follow-up flat folding machine operator Name: Valentine Hooks RN IBCLC Maternal Information [...] note was copied from a baby's chart. Forging Press Operator Note Consultation Maternal Information Maternal Assessment [...] blood pressures and promoting rest for patient Forging Press Operator Note Consultation Reason for Consult: Follow-up assessment, Late Registry Np Name: Noemi Ludwig RN, IBCLC Maternal Information [...] as needed as mother anticipates discharge today. Forging Press Operator Note Consultation Reason for Consult: Follow-up flat folding machine operator Name: Noemi Ludwig RN, IBCLC Maternal Information [...] and bleeding slowed with intervention. Get William [[id number]] Labor Events Sac identifier: Sac 1 Rupture [...] 6 8 Apgars assigned by: Fabricio HAWTHORNE RNinterlibrary loan specialist Providers Delivering clinician: Bryan Us MD Provider Role Jennifer Hwang, interlibrary loan specialist Nurse Agnieszka Hawthorne, SOULEYMANE Nursery Nurse Shaina [...] stable since admission documented in this encounter [facility] Work Phone: 06-19-2023 Hospital course Narrative Discharge [...] Your Medications These medications were sent to [facility] [address] [place] [address] Hours: 8:30 AM to 5 PM Mon-Fri ferrous sulfate (325 mg ferrous sulfate) tablet NIFEdipine ER 90 mg 24 hr tablet norethindrone 0.35 mg tablet Test Results Pending At Discharge Pending Labs Order Current Status Surgical Pathology Exam - PLACENTA In process Outpatient Follow-Up Future Appointments Date Time Provider Department Center 07/04/2023 9:40 AM [facility] [place] 07/11/2023 9:00 AM [facility] order placed to schedule 2-5 days for BP check and 4-6 weeks for routine visit with Alycia Vicente CNM. Vanna Wu PA-C 06/19/23 12:10 PM Vocera documented in this encounter [facility] Work Phone: 06-19-2023 Obstetrics Note This note was copied from a baby's chart. Forging Press Operator Note Consultation Reason for Consult: Follow-up flat folding machine operator Name: Valentine Hooks RN IBCLC Maternal Information [...] call if any questions or concerns arise. [facility] 06-19-2023 Obstetrics Note This note was copied from a baby's chart. Forging Press Operator Note Consultation Maternal Information Maternal Assessment Assessment Feeding Assessment LATCH TOOL Breast Pump Other OB Tools Patient Follow-up Other OB Documentation Recommendations/Summary Mother sleeping and desired to defer consult at this time. Will check back at a later time. [facility] Work Phone: 06-18-2023 History of Present illness [...] BP Maternal Well-Being - emotional support provided [place] Feeding - /pumping encouraged; consult prn Contraception [...] home Maternal Well-Being - emotional support provided [place] Feeding - /pumping encouraged; consult prn Contraception [...] second trimester 03/21/2023 by Alycia R Schwochow, POWDER CUTTING OPERATOR-CNM No Priority: Medium Overview Addendum 06/07/2023 4:21 PM by Elsa Kelly, POWDER CUTTING OPERATOR-SUSUM Initial BMI 24 rrNIPS Declines COVID and [...] today Maternal Well-Being - emotional support provided [place] Feeding - /pumping encouraged; consult prn Contraception [...] your OB provider. Tyrell Kirby PA-C Pager [phone] Principal Problem: Preeclampsia, third trimester Problems (from [...] protocol - BMZ given 06/07-06/08 Massiel Marvin [facility] MS-3 Patient seen and evaluated with medical [...] variability, + accels, - decels SVE: 3/50/-3 [place]: q2-5 min cx Skin: No rashes/lesions/erythema Neuro: [...] moderate variability and Accelerations present, decelerations absent [place] reading: q 2-5 mins VAGINA: crb remains [...] Gale Dillon MD documented in this encounter [facility] Work Phone: 06-18-2023 Plan of care note The patient's goals for the shift include rest The clinical goals for the shift include stable blood pressures this shift Continuing to monitor blood pressures and promoting rest for patient [facility] 06-18-2023 Obstetrics Note Forging Press Operator Note Consultation Reason for Consult: Follow-up assessment, Late Registry Np Name: Noemi Ludwig RN, IBCLC Maternal Information [...] as needed as mother anticipates discharge today. [facility] 06-16-2023 Obstetrics Note Forging Press Operator Note Consultation Reason for Consult: Follow-up flat folding machine operator Name: Noemi Ludwig RN, IBCLC Maternal Information Has mother breastfed before?: No to breast within first 2 hours of ?: No Delayed Due to: Other (Comment) (mother does not want to latch infant) Exclusive Pump and Bottle Feed: Yes Maternal Assessment Infant Assessment Behavior: Light sleep Feeding Assessment Nutrition Source: (formula until can give expressed breastmilk (ideally exclusively)) LATCH TOOL Breast Pump Pump: fsboWOW grade electric pump Frequency: Less than 3 [...] call for any questions, concerns or assistance. [facility] Work Phone: 06-15-2023 Plan of care note The patient's goals for the shift include Bonding with The clinical goals for the shift include BP >160/110 [facility] 06-15-2023 Note Formatting of this n ote [...] provider. Pt verbalized understanding the above information. [facility] 06-15-2023 Hospital Discharge instructions Jackelin Hutchison RN [...] to nearest emergency room. *Information obtained from [facility] s: Save Your Life: Get Care for These POST- Warning Signs Pacifier Use The [place] [employer] recommends that pacifier use [...] learning to breastfeed. documented in this encounter [facility] Work Phone: 06-15-2023 Plan of care note [...] clinical goals for the shift include BP<160/110 [facility] 06-15-2023 Labor and delivery summary note OB [...] and bleeding slowed with intervention. Get William [[id number]] Labor Events Sac identifier: Sac 1 Rupture [...] No Shoulder Dystocia Shoulder dystocia present?: No [place] Delivery Time head delivered: 06/15/2023 04:20:00 date/time: [...] 6 8 Apgars assigned by: Fabricio HAWTHORNE interlibrary loan specialist Providers Delivering clinician: Bryan Us MD Provider Role Jennifer Hwang RN Delivery Nurse Agnieszka Hawthorne, RN Nursery Nurse Shaina Browning MD Resident Shaina Browning MD PGY1 Associated attestation - Bryan Us MD - 06/16/2023 7:56 PM EST I was present during all critical and canela portions of the procedure(s) and immediately available to furnish services the entire duration. See resident note for details. [facility] Work Phone: 06-15-2023 Note Formatting of this [...] PCN per protocol Shaina Browning MD, PGY-1 [facility] Work Phone: 06-14-2023 Note Formatting of this [...] Discussed with Dr. Malka Browning MD, PGY-1 [facility] Work Phone: 06-14-2023 Note Formatting of this [...] AROMd for clear Breann Sears MD PGY1 [facility] Work Phone: 06-14-2023 Note Formatting of this [...] Dr. Foreign Landaverde MD Labor and Delivery [facility] Work Phone: 06-13-2023 Plan of care note VS and assessments stable since admission [facility] Work Phone: 06-13-2023 History and physical note [...] Lab Review Labs in chart were reviewed. [facility] Work Phone: 06-13-2023 History and physical note [...] chart were reviewed. documented in this encounter [facility] Work Phone: 06-07-2023 Nurse Note Pt discharged [...] further questions or concerns. Ambulated off unit. [facility] Work Phone: 06-07-2023 Nurse Note Pt discharged [...] Ambulated off unit. documented in this encounter [facility] Work Phone: 06-07-2023 History of Present illness [...] call. CESAR Phelps documented in this encounter [facility] Work Phone: 06-07-2023 History and physical note [...] Delgado was sent in for evaluation by compliance advisor Nirav Kelly following her appointment this evening, [...] 125bpm, mod variability, + accels, - decels [place] reading: quiet, no contractions noted NEUROLOGICAL: alert, oriented, normal speech, no focal findings or movement disorder noted, DTRs normal and symmetrical PSYCHOLOGICAL: awake and alert; oriented to person, place, and time Lab Review Labs in chart were reviewed. [facility] Work Phone: 06-07-2023 History and physical note [...] Maryana was sent in for evaluation by compliance advisor Nirav Kelly following her appointment this evening, [...] 125bpm, mod variability, + accels, - decels [place] reading: quiet, no contractions noted NEUROLOGICAL: alert, oriented, normal speech, no focal findings or movement disorder noted, DTRs normal and symmetrical PSYCHOLOGICAL: awake and alert; oriented to person, place, and time Lab Review Labs in chart were reviewed. documented in this encounter [facility] Work Phone: Evaluation note Diagnosis Vaginal bleeding- Primary Other specified noninflammatory disorder of vagina Intrauterine documented in this encounter [facility] Phone: evaluation note* Diagnosis Vaginal bleeding- Primary Other specified noninflammatory disorder of vagina Threatened miscarriage Threatened , unspecified as to episode of care documented in this encounter [facility] Phone: evaluation note* Diagnosis Threatened miscarriage in early Threatened , unspecified as to episode of care documented in this encounter [facility] Phone: [email or web address] note* Diagnosis Early stage of documented in this encounter [facility] note* Diagnosis Proteinuria affecting in third trimester- Primary Proteinuria affecting in third trimester Elevated blood pressure reading in office without diagnosis of hypertension Elevated blood pressure reading in office without diagnosis of hypertension documented in this encounter [facility] Work Phone: Evaluation note* Diagnosis Preeclampsia, third trimester- Primary Preeclampsia, third trimester Anemia of mother in , delivered with condition Anemia of mother, with delivery, with mention of complication Encounter for initial prescription of contraceptive pills documented in this encounter [facility] Work Phone: Evaluation note* Diagnosis 15 weeks gestation of - Primary state, incidental Late care affecting in second trimester Short interval between pregnancies complicating , antepartum Supervision of other high-risk Hx of pre-eclampsia in prior , currently with other poor obstetric history Supervision of high risk , antepartum [facility] Diagnosis Supervision of high risk , antepartum- Primary Late care affecting in second trimester Short interval between pregnancies complicating , antepartum Supervision of other high-risk Hx of pre-eclampsia in prior , currently with other poor obstetric history 20 weeks gestation of state, incidental [facility] Diagnosis Bilateral calf pain- Primary Pain in limb [facility]* Diagnosis Encounter for anatomic survey- Primary 22 weeks gestation of state, incidental documented in this encounter [facility] note* Diagnosis 24 weeks gestation of [...] today, declines covid [facility]* Diagnosis 24 weeks gestation [...] unspecified single disease documented in this encounter [facility] note* Diagnosis 24 weeks gestation of (HCC)- Primary state, incidental Screening for diabetes mellitus Supervision of high risk , antepartum (HCC) Need for influenza vaccination Need for prophylactic vaccination and inoculation against influenza 30 weeks gestation of (HCC)- Primary state, incidental Late care (HCC) Insufficient care Supervision of high risk in third trimester (HCC) Unspecified high-risk documented in this encounter [facility] note* Diagnosis Pneumonia of left lower lobe due to infectious organism- Primary documented in this encounter [facility] Work Phone: Evaluation note* Diagnosis 24 weeks gestation of (HCC)- Primary state, incidental Screening for diabetes mellitus Supervision of high risk , antepartum ([facility]) Need for influenza vaccination Need for prophylactic vaccination and inoculation against influenza Anemia complicating , third trimester (HCC)- Primary 32 weeks gestation of (HCC) state, incidental Supervision of high risk in third trimester (HCC) Unspecified high-risk Pneumonia affecting in third trimester ([facility]) * Assessment & Plan Note - Naren Bullard MD - 10/10/2024 11:02 AM EDTAssociated Problem(s): Anemia complicating , third trimester (HCC) Orders: COMPLETE BLOOD COUNT; Future IRON AND TIBC; Future FERRITIN; Future * Assessment & Plan Note - Naren Bullard MD - 10/10/2024 11:02 AM EDTAssociated Problem(s): Pneumonia affecting in third trimester ([facility]) Continue augmentin documented in this encounter [facility] note* Diagnosis 24 weeks gestation of (HCC)- Primary state, incidental Screening for diabetes mellitus Supervision of high risk , antepartum ([facility]) Need for influenza vaccination Need for prophylactic [...] and obstetric disorders [facility] Diagnosis 24 weeks gestation [...] (HCC) state, incidental documented in this encounter [facility] note* Diagnosis Rib pain on right side- Primary 37 weeks gestation of (HHS-HCC) Calculus of gallbladder without cholecystitis without obstruction documented in this encounter [facility] Work Phone: Evaluation note* Diagnosis 24 weeks [...] cholecystitis or obstruction documented in this encounter [facility] Discharge instructions* Instructions* Alexandre Casillas MD - 10/18/[address] [place] [id number]. REPEAT TEST IN 48H. RETURN FOR NEW OR WORSENING SYMPTOMS OR IF BLEEDING THRU MORE THAN 1 PAD PER HOUR. [facility]: [facility] Discharge instructions* Instructions* Alexandre Casillas MD - 10/19/2020 FOLLOW UP WITH OB OR RETURN TO ED TOMORROW FOR 48H HCG TEST. LOOKUP BLOOD TYPE FOR RHOGAM TOMORROW,IF INDICATED. RETURN IF BLEEDING THROUGH MORE THAN 1 PAD PER HOUR. * Attachments The following attachments cannot be sent through Care Everywhere. * Miscarriage: Threatened (Romanian) [facility]Tri[facility] Phone: Hospital Discharge instructions* Attachments The following attachments cannot be sent through Care Everywhere. * _Pneumonia, Bacterial, [facility] (Romanian) [facility] Work Phone: Hospital Discharge instructions* Attachments The following attachments cannot be sent through Care Everywhere. * _Cholelithiasis, [facility] (Romanian) * Gallbladder Diet (Romanian) [facility] Work Phone: Reason for referral (narrative)* Consultation (Routine) - Authorized Specialty Diagnoses / Procedures Referred By Contac t Referred To Contact Maternal and Medicine Diagnoses Proteinuria affecting in third trimester Elevated blood pressure reading in office without diagnosis of hypertension Paty Hernandez APRN-CNM [facility] [address] [place] [address] Referral ID Status Reason Start Date Expiration Date Visits Requested Visits Authorized [id number] Authorized Specialty Services Required 06/07/2023 06/06/2024 1 1 [facility] Work Phone: Repcpw for referral (narrative)* Diagnostic Procedure Only (Routine) - Authorized Specialty Diagnoses / Procedures Referred By Contac t Referred To Contact [facility] Diagnoses 15 weeks gestation of Procedures OBSTETRIC ULTRASOUND WHI US PREG UTERUS AFTER 1ST TRIMEST GESTATION Priscilla Murphy APRN.YARD WAREHOUSE WORKER [address] [place] [address] [facility] [place] [address] Referral ID Status Reason Start Date Expiration Date Visits Requested Visits Authorized [id number] Authorized Auto-Generat ed Referral 06/10/2024 06/10/2025 1 1 [facility] Advance Directives Documents on File Type Date Recorded Patient Bung Driver Expl anation ACP-Advance Directive ACP-Power of Instructional Consultant Latest Code Status on File Code Status [...] SINGLE OR FIRST GESTATION Hina Winter APRN [facility] [address] [place] [address] Referral ID Status Reason Start Date Expiration Date V isits Requested Visits Authorized [id number] Pending Review 12/09/2022 12/08/2023 1 1 Additional Source Comments Reason for Visit (unrecogniz ed section and content) Reason Comments Vaginal Bleeding Reason Comments Vaginal Bleeding 9 weeks Specialty Diagnoses / Procedures Referred By Contac t Referred To Contact Radiology Diagnoses Early stage of Procedures US OB LESS THAN 14 WEEKS SINGLE OR FIRST GESTATION Hina Winter APRN [facility] [address] [place] [address] Referral ID Status Reason Start Date Expiration Date V isits Requested Visits Authorized [id number] Pending Review 12/09/2022 12/08/2023 1 1 Reason Comments Hypertension Specialty Diagnoses / Procedures Referred By Contac t Referred To Contact Diagnoses Preeclampsia, third trimester Procedures [place] [address] [facility] Department of [employer] [address] [facility] [place] [id number] [place] [id number] Referral ID Status Reason Start Date Expiration Date Visits Re quested Visits Authorized [id number] 1 1 Reason Comments Initial OB Visit Reason Onset Date Comments Care 07/16/2024 Reason Comments US Specialty Diagnoses / Procedures Referred By Contac t Referred To Contact [facility] Diagnoses 15 weeks gestation of Procedures OBSTETRIC ULTRASOUND WHI US PREG UTERUS AFTER 1ST TRIMEST GESTATION Priscilla Murphy APRN.YARD WAREHOUSE WORKER [address] [place] [address] Phone: tel: fax: [facility] [address] [place] [address] Referral ID Status Reason Start Date Expiration Date V isits Requested Visits Authorized [id number] Closed Auto-Generate d Referral 06/10/2024 06/10/2025 1 [...] signs and symptoms of magnesium toxicity including: SENIOR FRONT END DEVELOPER depression, diminished DTRs, increasing muscle weakness, respirations [...] scan vaccine vial for Vaccine Record, Indications: [id number]-[id number]-[id number] vaccination methylergonovine (Methergine) injection 0.2 mg 0.2 [...] prior to administration, Tranexamic Acid Indication: Hemorrhage: 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 sarika (Tucks) pads 1 each 1 [...] section and content) DATE CREATED AUTHOR 10/19/2020 [facility] DATE CREATED AUTHOR AUTHOR'S ORGANIZ ATION 12/13/2022 [facility] DATE CREATED AUTHOR AUTHOR'S ORGANIZ ATION 05/13/2023 [facility] DATE CREATED AUTHOR AUTHOR'S ORGANIZ ATION 07/16/2023 [facility] DATE CREATED AUTHOR AUTHOR'S ORGANIZ ATION 05/18/2024 [facility] DATE CREATED AUTHOR AUTHOR'S ORGANIZ ATION 10/11/2024 [facility] DATE CREATED AUTHOR AUTHOR'S ORGANIZ ATION 11/14/2024 [facility] DATE CREATED AUTHOR AUTHOR'S ORGANIZ ATION 11/15/2024 [facility] DATE CREATED AUTHOR AUTHOR'S ORGANIZ ATION 11/17/2024 [facility] Care Teams (unrecognized sec tion and content) [employer] E Business Developer Relationship Specialty Start Date End Date Cortney Quinones, ILANA [address] [place] [address] PCP - General Physician Station Mechanic Helper 10/11/19 [employer] Business Developer Relationship Specialty Start Date End Date Alycia Vicente APRN-CNM [address] [facility] [place] [address] Inspector [employer] Obstetrics and Gynecology 06/19/23 [employer] Business Developer Relationship Specialty Start Date End Date Generic Provider, No Assigned P[place], [place] [address] PCP - General Strategic Marketing Leader 10/06/24 Alycia Vicente APRN-KARUNA [address] [facility] [address] Inspector [employer] Obstetrics and Gynecology 06/19/23 [employer] E Business Developer Relationship Specialty Start Date End Date Generic Provider, No Assigned P[place], [place] [address] PCP - General Strategic Marketing Leader 10/06/24 Alycia Vicente APRN-KARUNA [address] [facility] [address] Inspector [employer] Obstetrics and Gynecology 06/19/23 [employer] E Business Developer Relationship Specialty Start Date End Date Generic Provider, No Assigned P[place], [place] [address] PCP - General Strategic Marketing Leader 10/06/24 Alycia Vicente APRN-KARUNA [address] [facility] [place] [address] Inspector [employer] Obstetrics and Gynecology 06/19/23 Source Comments (unrecognize d section and content) In the event this informatio n is protected by the Federal Confidentiality of Alcohol and Drug Abuse Patient Records regulations: The Federal rules restrict any use of the information to criminally investigate or prosecute any alcohol or drug abuse patient.[facility] the event this information is protected by the Federal Confidentiality of Alcohol and Drug Abuse Patient Records regulations: The Federal rules restrict any use of the information to criminally investigate or prosecute any alcohol or drug abuse patient.[facility] Center[facility] the event this information is protected by the Federal Confidentiality of Alcohol and Drug Abuse Patient Records regulations: The Federal rules restrict any use of the information to criminally investigate or prosecute any alcohol or drug abuse patient.[facility] CenterIn the event this information is protected by the Federal Confidentiality of Alcohol and Drug Abuse Patient Records regulations: The Federal rules restrict any use of the information to criminally investigate or prosecute any alcohol or drug abuse patient.[facility] CenterIn the event this information is protected by the Federal Confidentiality of Alcohol and Drug Abuse Patient Records regulations: The Federal rules restrict any use of the information to criminally investigate or prosecute any alcohol or drug abuse patient.[facility] CenterIn the event this information is protected by the Federal Confidentiality of Alcohol and Drug Abuse Patient Records regulations: The Federal rules restrict any use of the information to criminally investigate or prosecute any alcohol or drug abuse patient.[facility] CenterIn the event this information is protected by the Federal Confidentiality of Alcohol and Drug Abuse Patient Records regulations: The Federal rules restrict any use of the information to criminally investigate or prosecute any alcohol or drug abuse patient.[facility] CenterIn the event this information is protected by the Federal Confidentiality of Alcohol and Drug Abuse Patient Records regulations: The Federal rules restrict any use of the information to criminally investigate or prosecute any alcohol or drug abuse patient.[facility] CenterIn the event this information is protected by the Federal Confidentiality of Alcohol and Drug Abuse Patient Records regulations: The Federal rules restrict any use of the information to criminally investigate or prosecute any alcohol or drug abuse patient.[facility] CenterIn the event this information is protected by the Federal Confidentiality of Alcohol and Drug Abuse Patient Records regulations: The Federal rules restrict any use of the information to criminally investigate or prosecute any alcohol or drug abuse patient.[facility] CenterIn the event this information is protected by the Federal Confidentiality of Alcohol and Drug Abuse Patient Records regulations: The Federal rules restrict any use of the information to criminally investigate or prosecute any alcohol or drug abuse patient.[facility] CenterIn the event this information is protected by the Federal Confidentiality of Alcohol and Drug Abuse Patient Records regulations: The Federal rules restrict any use of the information to criminally investigate or prosecute any alcohol or drug abuse patient.[facility] CenterIn the event this information is protected by the Federal Confidentiality of Alcohol and Drug Abuse Patient Records regulations: The Federal rules restrict any use of the information to criminally investigate or prosecute any alcohol or drug abuse patient.[facility] CenterIn the event this information is protected by the Federal Confidentiality of Alcohol and Drug Abuse Patient Records regulations: The Federal rules restrict any use of the information to criminally investigate or prosecute any alcohol or drug abuse patient.[facility] CenterIn the event this information is protected by the Federal Confidentiality of Alcohol and Drug Abuse Patient Records regulations: The Federal rules restrict any use of the information to criminally investigate or prosecute any alcohol or drug abuse patient.[facility] CenterIn the event this information is protected by the Federal Confidentiality of Alcohol and Drug Abuse Patient Records regulations: The Federal rules restrict any use of the information to criminally investigate or prosecute any alcohol or drug abuse patient.[facility] CenterIn the event this information is protected by the Federal Confidentiality of Alcohol and Drug Abuse Patient Records regulations: The Federal rules restrict any use of the information to criminally investigate or prosecute any alcohol or drug abuse patient.[facility] CenterIn the event this information is protected by the Federal Confidentiality of Alcohol and Drug Abuse Patient Records regulations: The Federal rules restrict any use of the information to criminally investigate or prosecute any alcohol or drug abuse patient.[facility] FOR RECORDS PERTAINING TO PATIENTS [...] BE BASED ON THE PRIMARY CLINICAL RECORDS. [employer] [facility]. provides no warranty or guarantee of the accuracy or completeness of information in this document.
[2024-11-19] MEDS: Lactated Ringers 1,000 ML 999 ML IV ×2 (06:35→08:30)
[2024-11-19 06:54] LABS: Absolute Lymphocyte Count 2.58 X10^3/uL (0.83-4.51); Absolute Neutrophil Count 9.9 X10^3/uL (2.0-7.7); Basophil# 0.06 X10^3/uL; Basophil% 0.4 % (0-1); Eosinophil# 0.08 X10^3/uL; Eosinophils% 0.6 % (0-5); Hemoglobin 9.3 g/dL (12.0-15.0); Lymphocyte # 2.58 X10^3/ul (0.83-4.51); Lymphocyte % 19.1 % (19-41); Mean Corp Hgb Conc 32.1 g/dL (32-36); Mean Corpuscular Hgb 24.7 pg (27.0-32.0); Mean Corpuscular Volume 76.9 fL (81-99); Mean Platelet Vol. 10.9 fl (6.2-12.0); Monocyte# 0.72 X10^3/uL; Monocyte% 5.3 % (0-10); NRBC Flagged by Analyzer 0 % (0-5); Neutrophil # 9.88 X10^3/uL (2.7-7.7); Platelet Count 452 K/mm3 (150-450); RBC Distribution Width SD 38.7 fl (35.1-43.9); Red Blood Count 3.77 M/mm3 (4.2-5.4); White Blood Count 13.5 K/mm3 (4.4-11.0)
[2024-11-19] MEDS: fentaNYL-bupivacaine (epidural) 100 ML BAG EPIDURAL (07:35)
[2024-11-19 07:52] LABS: Syphilis Antibodies Nonreactive (Nonreactive)
[2024-11-19] MEDS: Oxytocin 15 Units/NS 250ml 15 UNITS/250 ML IV.SOLN 334 UNITS IV (10:55)
--- NOTE | 2024-11-19 11:04 | OB.VAGDELI_ITS ---
Assessment & Plan (1) (spontaneous vaginal delivery): (2) Single live : (3) 38 weeks gestation of : (4) Shoulder dystocia, delivered: Maternal Data Information Final COTY: 12/02/24 Gestational age: 38 1/7 Vaginal Delivery Maternal Presentation Maternal Presentation: Active Labor Vaginal Delivery Information Procedure Performed: Spontaneous Vaginal Delivery Surgeon/Practitioner: Hallie Berg Date of Procedure: 11/19/24 Pre-Procedure Diagnosis: labor Post-Procedure Diagnosis: same + mild shoulder dystocia Type of anesthesia: Epidural Special Medications: none Estimated Blood Loss: 400 Time of Delivery: 10:56 Findings Description of procedure: A vigorous male was delivered SHIRLEY over a first-degree perineal laceration. The nuchal cord was somewhat tight and was not able to be easily reduced. The anterior shoulder did not deliver immediately with gentle tract ion. Team was notified and all call was sent out. At 30 seconds suprapubic pressure was initiated at 33 seconds the posterior shoulder was delivered and the remainder of the delivered easily by 34 seconds. The Pitocin infusion was initiated for active management of the third stage. The cord was clamped and cut after 2 minutes. The infant was attended to by the waiting nursing staff. The placenta was delivered spontaneously and intact. The cervix and vagina were intact. The first-degree perineal laceration was less than 1 cm and was hemostatic and was not repaired after discussion with patient. Sponge and needle counts were correct. A vaginal sweep was completed by me. Procedure findings: vigorous male infant Presentation: SHIRLEY Amniotic Membrane Rupture Type: Spontaneous Amniotic Fluid Description: Clear Placental Delivery Description: Spontaneous Placenta Disposition: [facility] Specimen collected: No Cord Vessel Description: 3 Vessels Cord Entanglement: Around neck x 1, tight Nuchal Cord Compression: Without compression Infant A Gender: Male (Love) (1 minute): 8 (5 minute): 9 Delayed Cord Clamping: Yes Stile Ripsaw Operator postie: Yes Tarper: Agnieszka Hankins PGY4 Tasks completed by assistant professor of physics: Other (assisting w/ delivery) Additional clerical dentist assistant?: No Post Vaginal Deli Medications given after delivery: IV Pitocin Laceration: 1st degree (perineal) Complication Complications: No
[2024-11-19] MEDS: Oxytocin 15 Units/NS 250ml 15 UNITS/250 ML IV.SOLN 83 UNITS IV (11:45)
[2024-11-19] MEDS: Benzocaine/Lanolin/Aloe Vera 85 GM Spray 1 SPRAY TOPICAL (13:16)
[2024-11-19] MEDS: 0.9% Saline Lock 10 ML Syringe IV (14:54)
[2024-11-19] MEDS: Ibuprofen 600 MG Tablet PO (17:08)
[2024-11-20 01:05] VITALS: BP 112/76; PULSE 72; RESP 16; TEMP 36.8; O2SAT 97
[2024-11-20 04:55] VITALS: BP 122/77; PULSE 72; RESP 16; TEMP 37.2; O2SAT 98
[2024-11-20] MEDS: Ibuprofen 600 MG Tablet PO (05:04)
[2024-11-20 08:27] VITALS: BP 127/83; PULSE 82; RESP 16; TEMP 36.7; O2SAT 96
--- NOTE | 2024-11-20 08:39 | PCM.DC.SUM ---
Providers Date of Admission: 11/19/24 Primary Care Physician: Katherine Primary Care Phys Reason For Visit: VAGINAL DELIVERY Diagnosis Discharge Diagnosis (1) (spontaneous vaginal delivery): Status: Acute Code(s): O80 - Encounter for full-term uncomplicated delivery (2) Single live : Status: Acute Code(s): Z37.0 - Single live (3) 38 weeks gestation of : Status: Acute Code(s): Z3A.38 - 38 weeks gestation of (4) Shoulder dystocia, delivered: Status: Acute Code(s): O66.0 - Obstructed labor due to shoulder dystocia Medications at Discharge Home Medications vit no.95-ferrous fumarate 28 mg-folic acid 800 mcg tablet () 1 tab PO DAILY 07/18/24 Weight / BMI Weight Weight: 177 lb 11.081 oz Body Mass Index (BMI) 30.4 ABG / Lab / Microbiology Data 11/19/24 06:35 D/C Instructions Discharge Diet: No restrictions Discharge Activity: Return to Normal Activity, May Drive, May Shower and May Take a Tub Bath May resume sexual activity in: 6 weeks Weight Bearing Status: Full weight bearing Call your doctor if you observe: Fever of 101 or Higher, Inability to urinate, Using more than 1 pad per hour, Shortness of breath, Chest pain, Increased palpitations (irregular heartbeat), Calf discomfort and Uncontrolled pain DC O2, CPAP, BIPAP Needs Home O2 Discharge instructions: No Please Follow Up With: Alejandra De Leon CNM When: 2 week virtual visit and 6 week visit Meaningful Use Info Meaningful Use Meaningful Use Diagnoses (Choose all that apply): None applicable Ischemic Stroke Statin Dosing Therapy Reference: STATIN DOSE THERAPY REFERENCE: * Patients > 75 years receive moderate or high dose statin therapy. * Patients 75 years or YOUNGER should receive HIGH intensity statin dose unless contraindicated. You will be required to document reason for non-treatment if statin daily dose does not meet guidelines. HIGH DOSE STATIN THERAPY DAILY Atorvastatin > than or = to 40 mg Rosuvastatin > than or = to 20 mg Amlodipine + Atorvastatin > than or = to 2.5/40 mg Ezetimibe + Simvastatin 10/80 mg Simvastatin 80mg Discharge Plan Admission Admit Date/Time: 11/19/24 06:15 Primary Reason for Your Visit: Vaginal Delivery Attending Provider: Otis,Hallie Primary Care Provider: Care Physician,No Primary Discharge Orders/Prescriptions Prescriptions: No Action PNV cmb#95-ferrous fumarate-FA [] 28 mg iron- 800 mcg tablet 1 tab PO DAILY Referrals / Follow Up: Care Physician,No Primary [Primary Care Provider] - Disposition Disposition (needs filled in before D/C Order can be placed): Home, Self Care
--- NOTE | 2024-11-20 08:40 | PCM.PN.OB ---
Subjective Subjective Doing well per patient and nursing staff. Ambulating and taking PO without difficulty. Voiding and passing flatus. Pain controlled. , services for assistance. Denies headache, visual changes, chest pain, shortness of breath, leg pain or increased bleeding. Lochia normal. Objective Data Objective Data Vital Signs: Vital Signs Temp Pulse Resp BP Pulse Ox O2 Del Method 98.1 F 82 16 127/83 H 96 Room Air 11/20/24 08:27 11/20/24 08:27 11/20/24 08:27 11/20/24 08:27 11/20/24 08:27 11/20/24 08:27 Oxygen Delivery Method Room Air Weight: 177 lb 11.081 oz Body Mass Index (BMI) 30.4 Intake & Output: Intake and Output for Last 24 Hours 11/18/24 11/19/24 11/20/24 23:59 23:59 23:59 Intake Total 1999 / 1999 Output Total 1400 / 1400 Balance 600 / 600 Lab / Micro Data 11/19/24 06:35 ROS Constitutional Constitutional: Reports systems reviewed and no addt'l complaints, except as documented; Denies headache(s) Eyes Eyes: Denies acute decrease in peripheral vision, blurry vision or change in vision ENT HEENT: Reports systems reviewed and no addt'l complaints, except as documented Cardiovascular Cardiovascular: Denies chest pain or dizziness Respiratory/Chest Respiratory/Chest: Denies cough, dyspnea, dyspnea on exertion, shortness of breath at rest or shortness of breath with exertion Gastrointestinal Gastrointestinal: Denies abdominal pain, diarrhea, nausea or vomiting Genitourinary Genitourinary: Denies abdominal discomfort Musculoskeletal Musculoskeletal: Denies limited range of motion Integumentary Integumentary: Reports systems reviewed and no addt'l complaints, except as documented Neurologic Neurologic: Reports systems reviewed and no addt'l complaints, except as documented Psychiatric Psychiatric: Reports systems reviewed and no addt'l complaints, except as documented Endocrine Endocrinology: Reports systems reviewed and no addt'l complaints, except as documented Hematologic/Lymphatic Hematologic/Lymphatic: Reports systems reviewed and no addt'l complaints, except as documented Allergic/Immunologic Allergic/Immunologic: Reports systems reviewed and no addt'l complaints, except as documented Physical Exam Const alert and oriented x3 General Appearance: cooperative Orientation / Consciousness: awake, oriented to person, oriented to place and oriented to time Exam Limitations: no limitations HEENT normocephalic Head and Scalp: normal to inspection, normocephalic and atraumatic Face and Sinus: normal facial exam Eyes General Eye: normal appearance of both eyes Neck full ROM Chest Chest: symmetrical chest wall rise Resp normal respiratory effort and normal air movement Auscultation: clear to auscultation bilaterally Cardio regular rate, regular rhythm, S1 normal heart sound, S2 normal heart sound, no murmurs, no rub, no gallops and no clicks GI normal to inspection, nondistended, normoactive bowel sounds and non-tender GI Narrative: Fundus firm 2 below U appearance of the vagina normal Narrative: Normal lochia rubra Bladder / Kidney Exam: no CVA tenderness Back/Spine normal ROM Extremity normal to inspection and full ROM Skin no rashes or lesions noted Neuro oriented x3, CN's II-XII intact bilaterally and moves all extremities Sensorium / Orientation: awake, alert and oriented to person Motor Exam: clonus absent Deep Tendon Reflexes: Rt Patellar (L4): 2+ and Lt Patellar (L4): 2+ Assessment & Plan (1) Shoulder dystocia, delivered: (2) Single live : PLAN: Plan 1) Routine care, PPD #1 2) Vitals signs stable 3) Pain controlled 4) , services PRN 5) D/C home 6) Follow up in 2 weeks and 6 weeks
[2024-11-20 13:02] VITALS: BP 118/83; PULSE 78; RESP 16; O2SAT 99
[2024-11-20 15:06] VITALS: BP 118/83; PULSE 78; RESP 16; O2SAT 99
== END 2024-11-20 16:10 | disposition home or self-care (01) | DRG 807 ==
LOC: WPOUT 06:25 → WP 06:25
PROVIDERS: Obstetrics & Gynecology; Admitting Provider Obstetrics & Gynecology; Referring Provider Obstetrics & Gynecology; Visit Provider Obstetrics & Gynecology
DX: O99.02 Anemia complicating childbirth (principal); Z37.0 Single live birth; D64.9 Anemia, unspecified; O66.0 Obstructed labor due to shoulder dystocia; O69.1XX0 Labor and delivery complicated by cord around neck, with compression, not applicable or unspecified; Z3A.38 38 weeks gestation of pregnancy
CPT/HCPCS: 59050; 84112; 85025; 86780; 86850; 86900; 86901; 99221; A4216; G0378